=== PATIENT | female | born 1950 | race Caucasian/White ===

== ENCOUNTER 2017-04-28 20:32 | Inpatient (IN) ==
--- NOTE | 2017-04-28 20:50 | Emergency Department Note ---
Disposition Clinical Impression: ICD (implantable cardioverter-defibrillator) discharge, Hypomagnesemia, Hypokalemia, Hypocalcemia Laceration of face Qualifiers: Encounter type: initial encounter Qualified Code(s): S01.81XA - Laceration without foreign body of other part of head, initial encounter Concussion Qualifiers: Encounter type: initial encounter Loss of consciousness presence/duration: with LOC of 30 min or less Qualified Code(s): S06.0X1A - Concussion with loss of consciousness of 30 minutes or less, initial encounter Disposition: Admitted As Inpatient Condition: Serious Time of Disposition: 23:30 General Adult HPI - General Chief complaint: ED Fall Stated complaint: Fall d/t Defib Firing Time Seen by Provider: 04/28/17 20:44 Source: patient, EMS Limitations: no limitations Nursing Notes Reviewed: Yes Vital Signs Reviewed: Yes - History of Present Illness HPI Narrative: 67-year-old female history of hypertension, afib, with history of cardiomyopathy, and implantable ICD she presents after an episode of ICD shock, she stated [place] [facility] [place] [facility] [place] [facility] , and she felt a shock she felt the ground striking her forehead on the ground, causing a laceration to her nose, and she started bleeding she is unsure if she lost consciousness. She had no chest pain prior to the shock but has some chest discomfort after that she describes as 4-10, she also is a 5 out of 10 headache. Denies dysarthria vision changes slurred speech or weakness. Onset (ago): minute(s) Location: chest Pain Severity: moderate Pain Scale: 5 Consistency: constant Improves with: nothing Worsens with: nothing Associated symptoms: Reports: chest pain. Denies: cough, diaphoresis, headaches , loss of appetite, malaise, nausea/vomiting, seizure, shortness of breath - Related Data Home Medications Medication Instructions Recorded Confirmed Aspirin 81 mg PO DAILY 06/05/16 04/28/17 Beclomethasone Diprop 40mcg [QVAR 1 puff IH BID 06/05/16 04/28/17 40 mcg] Cholecalciferol (Vitamin D3) 1,000 unit PO DAILY 06/05/16 04/28/17 [Vitamin D3] Metoprolol [Lopressor] 50 mg PO BID 06/05/16 04/28/17 Multivitamin [Multivitamins] 1 cap PO DAILY 06/05/16 04/28/17 Oxygen 2 l NS AD 06/05/16 04/28/17 Amiodarone [Cordarone] 200 mg PO DAILY 06/27/16 04/28/17 Calcium Carbonate [Calcium] 1,000 mg PO BID 04/28/17 04/28/17 Ferrous Sulfate 325 mg PO DAILY 04/28/17 04/28/17 Magnesium Chloride [Magnesium Dr] 128 mg PO TID 04/28/17 04/28/17 Omeprazole [PriLOSEC] 20 mg PO DAILY 04/28/17 04/28/17 Previous Rx's Medication Instructions Recorded Albuterol Sulfate [Albuterol 1 puff IH Q4HR PRN #2 puff 06/26/16 Inhaler] Furosemide [Lasix] 40 mg PO DAILY tablet 07/06/16 Potassium Chloride 20 meq PO DAILY tab.er.prt 07/06/16 Allergies Allergy/AdvReac Type Severity Reaction Status Date / Time peanut Allergy Hives Verified 07/04/16 05:24 zinc Allergy Hives Verified 07/04/16 05:24 Sulfa (Sulfonamide AdvReac Mild constipatio Verified 07/04/16 05:24 Antibiotics) n All systems ED: reviewed and negative except as stated. Review of Systems: As Per HPI Constitutional: Reports: as per HPI, weakness. Denies: fever Eyes: Denies: eye pain ENT ED: Denies: ear pain Cardiovascular: Denies: chest pain Respiratory: Denies: cough Gastrointestinal: Denies: abdominal pain, nausea Genitourinary: Denies: urgency Musculoskeletal: Denies: back pain Integumentary: Denies: rash Neurological: Reports: as per HPI, headache Past Medical History - Past Medical History Attestation: Yes The following information was validated with the patient. 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 LOGISTICS SUPPORT MANAGER history - Social History Smoking Status: Never smoker Smokeless Tobacco Status: No Alcohol use: Reports: none Drug use: Reports: none Physical Exam Constitutional: NAD, vital signs reviewed and wnl Eyes: PERRLA, sclera anicteric Head: Traumatic with midline laceration through the nasal bridge 3-1/2 cm ENT & Mouth: MM dry Neck: normal inspection, neck is supple Resp: CTA bilaterally, no resp distress CV: RRR, no m/g/r GI: normal inspection, soft, no guarding or rigidity MSK: wrist with no deformity, tender ROM and ecchymosis bilaterally Neuro: A&O3, CNII-XII grossly intact, QUEEN Skin: on limited exam, skin intact with no rashes or lesions poor skin turgor - General Limitations: no limitations General appearance: alert Course Course Narrative: 67-year-old female with ICD that had a fall after her pacer fired, we have interrogation of the Med[employer] pacer, check basic lab work including chest pain workup. Patient's EKG shows sinus arrhythmia, with occasional PVCs. Rate of 95 - Reevaluation(s) Reevaluation #1: Medtronic device shows that she had an episode of ventricular fibrillation her in the 190s, she was shocked with 35 J, basic lab work shows that she is hypomagnesemic, this could be the cause and etiology of her episode of syncope and ventricular fibrillation, replace magnesium IV, calcium and potassium. Admitted to Dr. Chaudhary service in stable condition, no evidence of fracture on CT imaging, laceration repaired. Time: 23:28 Vital Signs Temperature 98.2 F 04/28/17 20:36 Pulse Rate 92 04/28/17 20:36 Respiratory Rate 14 04/28/17 20:36 Blood Pressure 137/85 04/28/17 20:36 O2 Sat by Pulse Oximetry 95 04/28/17 20:36 Temperature 98.2 F 04/28/17 20:36 Pulse Rate 87 04/28/17 22:44 Respiratory Rate 14 04/28/17 23:29 Blood Pressure 121/77 04/28/17 23:29 O2 Sat by Pulse Oximetry 96 04/28/17 22:44 Oxygen Delivery Oxygen Delivery Room Air Procedures - Laceration Laceration 1 Site: face Side (If applicable): left Size (cm): 3.5 Description: linear, stellate Depth: simple, single layer Local Anesthetic: lidocaine 1% Amount of Anesthesia Used (mL): 5 Pre-repair: wound explored, irrigated extensively, deep structures intact Skin layer closed with: nylon Size: 6-0 Number of sutures/patel: 6 Technique: simple, interrupted Medical Decision Making - Medical Records Medical records reviewed: Yes I reviewed the patient's medical records. - Lab Data Lab results reviewed: Yes I reviewed the patient's lab results. Result diagrams: 04/28/17 20:56 04/28/17 20:56 Lab Results 04/28/17 04/28/17 04/28/17 Range/Units 20:56 20:56 20:56 WBC 10.6 (4.3-11.1) K/mcL RBC 4.06 (3.82-4.97) M/mcL Hgb 11.7 (11.5-15.4) g/dL Hct 37.6 (35.3-44.9) % MCV 92.6 (83.0-100.0) fL MCH 28.8 (28.0-33.3) pg MCHC 31.1 L (31.6-35.5) g/dL RDW 15.6 H (11.5-14.5) % Plt Count 269 (140-400) K/mcL MPV 9.9 (9.4-12.4) fL Immature Gran % 0.6 (0-4) % Seg Neutrophils % 67.0 % Lymphocytes % 21.9 % Monocytes % 7.4 % Eosinophils % 2.4 % Basophils % 0.7 % Neutrophils # 7.1 (1.6-8.9) K/mcL Lymphocytes # 2.3 (0.6-4.6) K/mcL Monocytes # 0.8 (0.0-1.3) K/mcL Eosinophils # 0.3 (0.0-0.6) K/mcL Basophils # 0.1 (0.0-0.2) K/mcL Sodium 143 (136-145) mEq/L Potassium 3.4 L (3.5-4.5) mEq/L Chloride 115 H (98-109) mEq/L Carbon Dioxide 18 L (19-29) mEq/L BUN 16 (7-20) mg/dL Creatinine 1.01 (0.57-1.11) mg/dL Est GFR ( Amer) > 60 (> 60) Est GFR (Non-Af Amer) 55 L (> 60) BUN/Creatinine Ratio 16 (6-26) Glucose 158 H (70-99) mg/dL Calculated Osmolality 300 (280-300) Calcium 7.9 L (8.6-10.8) mg/dL Magnesium < 0.7 L (1.6-2.6) mg/dL Troponin I 0.01 (0-0.03) ng/mL - Radiology Data Radiology results reviewed: Yes I reviewed the patient's radiology results. Chest X-Ray 04/28/17 20:50 IMPRESSION: No acute abnormality detected. D/ / James Pineda MD / James Pineda MD Interpreting Provider: James Pineda MD Cervical Spine CT 04/28/17 20:51 IMPRESSION: No acute abnormality of the cervical spine. Diffuse osteopenia. Moderate/severe multilevel degenerative changes with multilevel posterior disc osteophyte complexes. D/ / 04/28/2017 22:20:58 Modesto Layton MD / victorino Interpreting Provider: Modesto Layton MD Face CT 04/28/17 20:51 IMPRESSION: Questionable minimal nasal bone depression. Laceration and soft tissue swelling in the region of the nasal bridge. D/ / James Pineda MD / James Pineda MD Interpreting Provider: James Pineda MD Head CT 04/28/17 20:51 IMPRESSION: No acute intracranial abnormality. Small frontal scalp laceration. D/ / 04/28/2017 22:21:29 Modesto Layton MD / victorino Interpreting Provider: Modesto Layton MD Knee X-Ray 04/28/17 20:51 IMPRESSION: Remote postsurgical changes of right knee arthroplasty. No acute process. D/ / Mer Mcknight MD / Mer Mcknight MD Interpreting Provider: Mer Mcknight MD Shoulder X-Ray 04/28/17 20:51 IMPRESSION: Remote posttraumatic changes involving the proximal left humerus. No definite acute osseous abnormality. D/ / Mer Mcknight MD / Mer Mcknight MD Interpreting Provider: Mer Mcknight MD Wrist X-Ray 04/28/17 20:51 IMPRESSION: Bones are demineralized. No definite acute fracture identified. Severe degenerative changes, greatest the 1st carpometacarpal joint. D/ / James Pineda MD / James Pineda MD Interpreting Provider: James Pineda MD - EKG Data EKG #1 EKG attestation: Yes I reviewed and interpreted this EKG. EKG shows normal: sinus rhythm Rhythm: PVC's (Multiple PVCs, rate of 90, no evidence of ST segment elevations or depressions,) Ectopy: PVC Interpretation: nonspecific ST-T wave changes - Core Measures AMI Core Measures Followed: Yes Attestation Statement - Attestation Attestation: I, Allan Miles, examined this patient and my medical decision-making was reviewed with the HORN PLAYER/PA/Advanced Practice Nurse/Resident Physician. I agree with the documented findings, disposition and treatment plan as described except to the extent set forth below. 67-year-old female presents to emergency department after her pacemaker fired causing her to fall to the ground. Patient states that she was in her usual state of health this morning, she was on her way to a sleep study with her at the [place] when they became loss. As they were walking she became fatigued and was then shocked by her pacemaker. Patient denies feeling palpitations prior to being shocked. The shock caused her to fall to the ground striking her face. Patient sustained laceration to her superior nasal bridge and some glabella. Patient denies loss of consciousness. She is awake and alert and answering questions appropriately emergency department. CT the head does not reveal acute intracranial hemorrhage or fracture. Interrogation of the pacemaker revealed possible ventricular fibrillation. Initial troponin negative. Patient will be admitted to the hospital for further care and evaluation.
[2017-04-28] MEDS ORDERED: Lidocaine 1% 20 ML MDV INFILT STA (20:54)
[2017-04-28 21:04] LABS: Basophils # 0.1 K/mcL (0.0-0.2); Basophils % 0.7 %; Eosinophils # 0.3 K/mcL (0.0-0.6); Eosinophils % 2.4 %; Hematocrit 37.6 % (35.3-44.9); Hemoglobin 11.7 g/dL (11.5-15.4); Immature Granulocytes % 0.6 % (0-4); Lymphocytes # 2.3 K/mcL (0.6-4.6); Lymphocytes % 21.9 %; Mean Corpuscular HGB Conc 31.1 g/dL (31.6-35.5); Mean Corpuscular Hemoglobin 28.8 pg (28.0-33.3); Mean Corpuscular Volume 92.6 fL (83.0-100.0); Mean Platelet Volume 9.9 fL (9.4-12.4); Monocytes # 0.8 K/mcL (0.0-1.3); Monocytes % 7.4 %; Neutrophils # 7.1 K/mcL (1.6-8.9); Platelet Count 269 K/mcL (140-400); Red Blood Count 4.06 M/mcL (3.82-4.97); Red Cell Distribution Width 15.6 % (11.5-14.5)
[2017-04-28 21:17] LABS: BUN/Creatinine Ratio 16 (6-26); Blood Urea Nitrogen 16 mg/dL (7-20); Calcium 7.9 mg/dL (8.6-10.8); Carbon Dioxide 18 mEq/L (19-29); Chloride 115 mEq/L (98-109); Glucose 158 mg/dL (70-99); Osmolality,Calculated 300 (280-300); Potassium 3.4 mEq/L (3.5-4.5); Sodium 143 mEq/L (136-145); eGFR For African Americans > 60 (> 60); eGFR For Non-African Americans 55 (> 60)
[2017-04-28 21:18] LABS: Magnesium < 0.7 mg/dL (1.6-2.6)
[2017-04-28] MEDS ORDERED: Calcium Gluconate 1,000 MG in D5% in Water 100 ML IVPB ONE (21:48)
[2017-04-29] MEDS ORDERED: Naloxone 0.4 MG/ML INJ IVP PRN (01:01)
[2017-04-29] MEDS ORDERED: *HR* Morphine 2 MG/ML SYRINGE IVP PRN (01:01)
[2017-04-29] MEDS ORDERED: 0.9 % Sodium Chloride w KCl 20 MEQ/1,000 ML MLS IVC SCH (01:15)
[2017-04-29] MEDS: Acetaminophen 325 MG TABLET PO PRN ×4 (02:08→21:09)
--- NOTE | 2017-04-29 02:21 | Internal Med History&Physical ---
Date of Encounter: 04/29/17 Time of Encounter: 01:00 Assessment and Plan (1) AICD discharge Current visit: Yes Status: Acute 1. Will cycle troponins and order ECHO. 2. Consult cardiology for guidance and further work-up as necessary. 3. Continue home meds as appropriate. 4. Correct electrolytes and monitor closely. (2) Hypomagnesemia Current visit: Yes Status: Acute 1. Patient receiving IV Magnesium sulfate infusion. 2. Monitor magnesium levels closely and correct as needed. 3. Stop diuretics for now as she has no CHF and diuretics could lead to electrolyte imbalance. 4. Patient may need further GI work-up as I'm concerned she has GI losses of electrolytes. (3) Hypokalemia Current visit: Yes Status: Acute 1. Oral potassium replacement. 2. Monitor potassium and magnesium levels. 3. Consider further GI work-up as noted above. (4) Chronic diarrhea Current visit: No Status: Acute 1. This is chronic and not new. 2. Outpatient GI follow up. 3. Given her severe electrolyte imbalance and unintentional weight loss, she may need further work-up per her GI physician. (5) DVT prophylaxis Current visit: No Status: Acute 1. Heparin SQ. Internal Medicine - H&P: HPI Chief complaint: AICD DISCHARGE Admitted From: Emergency Dept Plans for Post Hospital Care: Home History of present illness: Ms. Hebert is a 67 year old female who presents the ER tonight after her AICD shocked her twice. She was at the [facility] with her earlier this evening for some testing that her was having performed. They were walking in between buildings, and she suddenly became a little lightheaded and then she was shocked twice by her defibrillator. She fell to the ground at that point and within seconds felt better other than some pain that she experienced after her defibrillation. She denied any syncope. Because of the AICD discharge, she was brought to the ER here where she was evaluated and admitted to the hospitalist service. She did sustain injury to her nose in the form of laceration and contusion. She had laceration repair in the ER. She otherwise feels fine now. Of note, patient had profound hypomagnesemia and hypokalemia. She received magnesium sulfate infusion in the ER and oral potassium replacement. She denies any chest pain or shortness of breath. She states she has had chronic diarrhea for years and has lost weight because of that. She has had extensive GI workup in the recent past, including upper and lower endoscopy. Workup thus far has been negative. She follows with her lift electrician in [place]. I suspect her low electrolyte imbalance may be at least be partially due to her GI losses. She denies any recent antibiotic use or any concern for Clostridium difficile colitis. Past Med Surg Social Fam HX - Past Medical History Attestation: Yes The following information was validated with the patient. Source: patient, old records reviewed Medical history: COPD, diabetes, hyperlipidemia, hypertension, myocardial infarction, other (h/o ventricular tachycardia) Psychiatric history: no psych history - Past Surgical History Surgical History: hysterectomy, pacemaker/AICD - Social History Smoking Status: Never smoker Smokeless Tobacco Status: No Alcohol use: none Drug use: none Current living situation: Home, With Family Activity Level: Independent ambulation Recent Out of Country Travel Within the Last 8 Weeks: No - Family History Mother Living Status: Hx Family Endocrine Disorder: Yes (dM) Internal Medicine - H&P: Meds Aspirin 81 mg PO DAILY 06/05/16 [History] Beclomethasone Diprop 40mcg [QVAR 40 mcg] 1 puff IH BID 06/05/16 [History] Cholecalciferol (Vitamin D3) [Vitamin D3] 1,000 unit PO DAILY 06/05/16 [History] Metoprolol [Lopressor] 50 mg PO BID 06/05/16 [History] Multivitamin [Multivitamins] 1 cap PO DAILY 06/05/16 [History] Oxygen 2 l NS AD 06/05/16 [History] Albuterol Sulfate [Albuterol Inhaler] 1 puff IH Q4HR PRN #2 puff 06/26/16 [Rx] Amiodarone [Cordarone] 200 mg PO DAILY 06/27/16 [History] Furosemide [Lasix] 40 mg PO DAILY tablet 07/06/16 [Rx] Potassium Chloride 20 meq PO DAILY tab.er.prt 07/06/16 [Rx] Calcium Carbonate [Calcium] 1,000 mg PO BID 04/28/17 [History] Ferrous Sulfate 325 mg PO DAILY 04/28/17 [History] Magnesium Chloride [Magnesium Dr] 128 mg PO TID 04/28/17 [History] Omeprazole [PriLOSEC] 20 mg PO DAILY 04/28/17 [History] 3 Allergy/AdvReac Type Severity Reaction Status Date / Time peanut Allergy Hives Verified 07/04/16 05:24 zinc Allergy Hives Verified 07/04/16 05:24 Sulfa (Sulfonamide AdvReac Mild constipatio Verified 07/04/16 05:24 Antibiotics) n - Constitutional Constitutional: weight loss, no chills, no fever(s), no night sweats - EENT Eyes: no blurry vision, no change in vision Ears: no ear pain, no tinnitus Nose, mouth and throat: no nasal congestion, no nasal discharge, no sinus pressure, no sore throat - Cardiovascular Cardiovascular ROS IM: lightheadedness, palpitations, no chest pain, no diaphoresis, no dyspnea, no dyspnea on exertion, no edema, no syncope - Respiratory Respiratory: no cough, no dyspnea, no hemoptysis, no chest congestion, no excessive phlegm production - Gastrointestinal Gastrointestinal: diarrhea (chronic), no abdominal pain, no hematemesis, no hematochezia, no melena, no nausea, no vomiting - Genitourinary Genitourinary: no dysuria, no flank pain, no hematuria - Musculoskeletal Musculoskeletal ROS IM: arthralgias, no back pain - Integumentary Integumentary IM: no rash, no jaundice - Neurological Neurological ROS: no focal weakness, no frequent falls, no headache(s), no weakness - Psychiatric Psychiatric: no anxiety, no depression - Endocrine Endocrine IM: no polydipsia, no polyuria - Hematologic/Lymphatic Hematologic/Lymphatic: no lymphadenopathy - Allergic/Immunologic Allergic/Immunologic: no wheezing, no GI upset with certain foods - Constitutional Vitals: Temp Pulse Resp BP Pulse Ox 97.9 F 82 18 124/73 95 04/29/17 00:29 04/29/17 00:30 04/29/17 00:29 04/29/17 00:29 04/29/17 00:29 General appearance: Present: A&O X 3, no acute distress - Head Head exam: Absent: atraumatic Additional comments: laceration/contusion to nasal bridge - Eye Eye exam: Present: EOMI, normal appearance, PERRL. Absent: scleral icterus Pupils: Present: normal accommodation - ENT ENT exam: Present: mucous membranes dry, normal oropharynx Additional comments: nasal bridge contusion and laceration - Neck Neck exam general surgery: Present: full ROM, supple. Absent: tenderness - Expanded Neck Exam Neck exam: Absent: carotid bruit - Respiratory Respiratory exam: Present: CTAB. Absent: chest wall tenderness, rales, rhonchi , wheezes - Cardiovascular Cardiovascular exam: Present: RRR, +S1, +S2. Absent: diastolic murmur, systolic murmur Additional comments: palpable AICD left upper chest - GI/Abdominal GI/Abdominal exam: Present: normal bowel sounds, soft. Absent: hepatomegaly, splenomegaly, tenderness - Extremities Exam Extremities exam: Present: full ROM, normal capillary refill, warm, radial pulses palpable and symmetrical. Absent: calf tenderness, joint swelling, pedal edema - Back Exam Back exam: Absent: CVA tenderness (L), CVA tenderness (R) - Neurological Exam Neurological exam: Present: alert, CN II-XII intact, oriented X3, no focal deficits - Psychiatric Psychiatric exam: Present: normal affect, normal mood - Skin Skin exam: Present: dry, warm. Absent: rash Internal Med - H&P Results - Labs CBC & Chem 7: 04/28/17 20:56 04/28/17 20:56 - EKG Data -: EKG Interpreted by Myself - EKG Data EKG comments: 04/29/17 03:09 sinus rhythm; PVC's; poor quality tracing due to baseline artifact - Diagnostic Studies Chest x-ray Status: image reviewed by me (negative)
[2017-04-29 04:27] LABS: Basophils # 0.1 K/mcL (0.0-0.2); Basophils % 0.5 %; Eosinophils # 0.2 K/mcL (0.0-0.6); Eosinophils % 1.9 %; Hematocrit 34.7 % (35.3-44.9); Hemoglobin 10.8 g/dL (11.5-15.4); Immature Granulocytes % 0.4 % (0-4); Lymphocytes # 2.1 K/mcL (0.6-4.6); Mean Corpuscular HGB Conc 31.1 g/dL (31.6-35.5); Mean Corpuscular Hemoglobin 28.8 pg (28.0-33.3); Mean Corpuscular Volume 92.5 fL (83.0-100.0); Mean Platelet Volume 10.1 fL (9.4-12.4); Monocytes # 0.9 K/mcL (0.0-1.3); Monocytes % 7.4 %; Platelet Count 243 K/mcL (140-400); Red Blood Count 3.75 M/mcL (3.82-4.97); Red Cell Distribution Width 15.6 % (11.5-14.5); Segmented Neutrophils % 72.8 %
[2017-04-29 04:36] LABS: INR 1.3; Prothrombin Time 13.6 Seconds (9.4-12.1)
[2017-04-29 04:39] LABS: Activated Partial Thrombo Time 32.5 Seconds (26.0-36.0)
[2017-04-29 04:49] LABS: Alanine Aminotransferase 15 Units/L (0-55); Albumin 2.8 g/dL (3.5-5.0); Alkaline Phosphatase 113 Units/L (38-126); Aspartate Amino Transferase 15 Units/L (5-34); BUN/Creatinine Ratio 18 (6-26); Bilirubin,Total 0.3 mg/dL (0.2-1.2); Blood Urea Nitrogen 17 mg/dL (7-20); Calcium 8.2 mg/dL (8.6-10.8); Carbon Dioxide 19 mEq/L (19-29); Chloride 117 mEq/L (98-109); Chol/HDL Ratio 4.1 (0-4.9); Cholesterol 81 mg/dL (< 200); Globulin 2.9 g/dL (2.4-3.5); Glucose 112 mg/dL (70-99); HDL Cholesterol 20 mg/dL (40-59); LDL Cholesterol,Calculated 45 mg/dL (0-99); Magnesium 1.2 mg/dL (1.6-2.6); Osmolality,Calculated 300 (280-300); Potassium 3.9 mEq/L (3.5-4.5); Sodium 144 mEq/L (136-145); Total Protein 5.7 g/dL (6.0-8.3); Triglycerides 78 mg/dL (< 150); eGFR For African Americans > 60 (> 60); eGFR For Non-African Americans 60 (> 60)
[2017-04-29] MEDS: *HR* Heparin 5,000 UNIT/ML VIAL SQ SCH ×2 (05:54→18:01)
[2017-04-29] MEDS ORDERED: Magnesium Sulfate 2 GM in D5% in Water 100 ML IVPB ONE (07:52)
[2017-04-29] MEDS: Aspirin 81 MG TAB.CHEW PO SCH (08:07)
[2017-04-29] MEDS: *HR* Amiodarone 200 MG TABLET PO SCH (08:08)
[2017-04-29] MEDS: Cholecalciferol (D-3) 1,000 UNIT TABLET PO SCH (08:08)
[2017-04-29] MEDS: Multivit/Ca/Min/Fe/FA 1 TAB TABLET PO SCH (08:08)
[2017-04-29] MEDS ORDERED: MAGNESIUM 128 MG PO SCH (09:00)
[2017-04-29] MEDS: Beclomethasone 40mcg MDI IH SCH ×2 (10:31→22:03)
[2017-04-29] MEDS: *HR* OxyCODONE/APAP 5/325 TABLET PO PRN ×2 (11:09→18:00)
--- NOTE | 2017-04-29 12:15 | Cardiology Consult Note ---
Date of Encounter: 04/29/17 Time of Encounter: 10:30 Assessment and Plan (1) AICD discharge Current Visit: Yes Status: Acute Per Cardiology: Has hx of ICD for VF Arrest following R on T. [employer] ICD interrogation report noted to show VT in the 190s yesterday evening at 1955 with one shock of 35 J with conversion to sinus rhythm. Denies CP. Trops negative x 3. Last LHC : Coronary arteries angiographically normal. Last echo 06/2016 showed EF 60 -65%. Echo pending per primary service. Suspect in relation to low potassium and low magnesium (3.4 and <0.7 on arrival). Now 3.9 and 1.2. On Lopressor 50mg PO BID and amiodarone 200mg PO daily. EP Consulted. (2) Hypokalemia Current Visit: Yes Status: Acute Per Cardiology: Replaced per primary and improved. Recommend keep K+ greater/= 4.0. (3) Hypomagnesemia Current Visit: Yes Status: Chronic Per Cardiology: <0.7 on arrival, now 1.2. Will add Mag Oxide 400mg PO BID. Will give Mg Carl 4gms, follow mag. Keep Mag greater/=2.0. Appears chronic with her persistent diarrhea and reported significant weight loss. Consider nephrology consult tot evaluate further causes of low mag. (4) Laceration of face Current Visit: Yes Status: Acute Per Cardiology: Sutures D&I. Head and Face CT negative. Qualifiers: Encounter type: initial encounter Qualified Code(s): S01.81XA - Laceration without foreign body of other part of head, initial encounter Discussion w patient/family: The assessment and plan as outlined above was discussed with the patient and/or family members who expressed understanding and agreement. All questions were answered. Thank you for involving us in the care of your patient. Please call with any questions. History of Present Illness Consult date: 04/29/17 Requesting physician: Charbel Silver Consult reason: ICD Shock Chief complaint: ICD shock and fall History of present illness: Ms. Hebert is a 67 year old female with a relevant past medical history of ventricular tachycardia with ICD, atrial fibrillation on amiodarone, hypertension, diabetes mellitus, LUIS. Cardiology consult for ICD shock with subsequent fall and head laceration. Patient reports she continues to experience chronic diarrhea and weight loss in excess of 200 pounds over the past year or so. She reports medical evaluations yielding diagnosis of irritable bowel syndrome. She [facility] became extremely short of breath and felt slightly dizzy but she didn't pass out. She reports prior to sitting in a chair heard from later shocked and she fell to the ground. Prior to this incident she denies any chest pain, short of breath, palpitations, ICD shocks. She does report overall increasing fatigue from baseline. Reports compliance with medications. Reports has been battling low magnesium levels with her persistent diarrhea. Past Med Surg Social Fam HX - Past Medical History Attestation: Yes The following information was validated with the patient. Source: patient, old records reviewed Medical history: atrial fibrillation, COPD, diabetes, hyperlipidemia, hypertension, myocardial infarction, other (h/o ventricular tachycardia) Psychiatric history: no psych history - Past Surgical History Surgical History: hysterectomy, pacemaker/AICD - Social History Smoking Status: Never smoker Smokeless Tobacco Status: No Alcohol use: none Drug use: none - Family History Mother Living Status: Hx Family Endocrine Disorder: Yes (dM) Medications and Allergies Aspirin 81 mg PO DAILY 06/05/16 [History] Beclomethasone Diprop 40mcg [QVAR 40 mcg] 1 puff IH BID 06/05/16 [History] Cholecalciferol (Vitamin D3) [Vitamin D3] 1,000 unit PO DAILY 06/05/16 [History] Metoprolol [Lopressor] 50 mg PO BID 06/05/16 [History] Multivitamin [Multivitamins] 1 cap PO DAILY 06/05/16 [History] Oxygen 2 l NS AD 06/05/16 [History] Albuterol Sulfate [Albuterol Inhaler] 1 puff IH Q4HR PRN #2 puff 06/26/16 [Rx] Amiodarone [Cordarone] 200 mg PO DAILY 06/27/16 [History] Furosemide [Lasix] 40 mg PO DAILY tablet 07/06/16 [Rx] Potassium Chloride 20 meq PO DAILY tab.er.prt 07/06/16 [Rx] Calcium Carbonate [Calcium] 1,000 mg PO BID 04/28/17 [History] Ferrous Sulfate 325 mg PO DAILY 04/28/17 [History] Magnesium Chloride [Magnesium Dr] 128 mg PO TID 04/28/17 [History] Omeprazole [PriLOSEC] 20 mg PO DAILY 04/28/17 [History] 3 Allergy/AdvReac Type Severity Reaction Status Date / Time peanut Allergy Hives Verified 07/04/16 05:24 zinc Allergy Hives Verified 07/04/16 05:24 Sulfa (Sulfonamide AdvReac Mild constipatio Verified 07/04/16 05:24 Antibiotics) n All Systems Review: A 10-system review of systems was performed and is negative for pertinent findings except as documented above in the HPI. - Constitutional Constitutional: fatigue - Cardiovascular Cardiovascular: as per HPI, dyspnea on exertion, lightheadedness, other (fall with ICD shock) Physical Examination Vital Signs, Last 4 Hours Temp Pulse Resp BP Pulse Ox 04/29/17 11:12 70 04/29/17 10:44 98.1 F 68 96/58 96 04/29/17 10:31 17 97 General: Conversant, No Apparent Distress HEENT: Atraumatic, Normocephaly, Mucus Membranes Moist Neck: No JVD, Normal carotid pulses Cardiac: Reg Rate and Rhythm, Normal S1 and S2, No Murmur Lungs: Normal Breath Sounds, No Wheeze, Rales, Rhonchi Neuro: Alert and responsive, No focal deficits noted Abdomen: Soft, Non-Tender Skin: No rashes noted on visualized skin, Other (mid forhead laceration approx 1 inch long with sutures D&I, no bleeding, no ecchymosis) Musculoskeletal: No Chest Wall Tenderness Extremities: No Clubbing, No Cyanosis, No Edema, Normal Pulses Results 04/29/17 04:06 04/29/17 04:06 Lab Results Laboratory Tests 04/28/17 04/28/17 04/29/17 20:56 20:56 04:06 INR 1.3 Potassium 3.4 L Magnesium < 0.7 L Troponin I 0.01 Albumin 04/29/17 04/29/17 04/29/17 04:06 04:06 09:24 INR Potassium 3.9 Magnesium 1.2 L Troponin I 0.03 0.02 Albumin 2.8 L ITS Impressions Chest X-Ray 04/28/17 20:50 IMPRESSION: No acute abnormality detected. D/ / James Pineda MD / James Pineda MD Interpreting Provider: James Pineda MD Cervical Spine CT 04/28/17 20:51 IMPRESSION: No acute abnormality of the cervical spine. Diffuse osteopenia. Moderate/severe multilevel degenerative changes with multilevel posterior disc osteophyte complexes. D/ / 04/28/2017 22:20:58 Modesto Layton MD / victorino Interpreting Provider: Modesto Layton MD Face CT 04/28/17 20:51 IMPRESSION: Questionable minimal nasal bone depression. Laceration and soft tissue swelling in the region of the nasal bridge. D/ / James Pineda MD / James Pineda MD Interpreting Provider: James Pineda MD Head CT 04/28/17 20:51 IMPRESSION: No acute intracranial abnormality. Small frontal scalp laceration. D/ / 04/28/2017 22:21:29 Modesto Layton MD / victorino Interpreting Provider: Modesto Layton MD Knee X-Ray 04/28/17 20:51 IMPRESSION: Remote postsurgical changes of right knee arthroplasty. No acute process. D/ / Mer Mcknight MD / Mer Mcknight MD Interpreting Provider: Mer Mcknight MD Shoulder X-Ray 04/28/17 20:51 IMPRESSION: Remote posttraumatic changes involving the proximal left humerus. No definite acute osseous abnormality. D/ / Mer Mcknight MD / Mer Mcknight MD Interpreting Provider: Mer Mcknight MD Wrist X-Ray 10/04/17 20:51 IMPRESSION: Bones are demineralized. No definite acute fracture identified. Severe degenerative changes, greatest the 1st carpometacarpal joint. D/ / James Pineda MD / James Pineda MD Interpreting Provider: James Pineda MD Active Medications Acetaminophen (Tylenol) 650 mg PO Q6HR PRN PRN Reason: Mild Pain (1-3) Stop: 10/29/17 01:02 Last Admin: 04/29/17 08:07 Dose: 650 mg Albuterol Sulfate (Albuterol Inhaler) 1 puff IH Q4HR PRN PRN Reason: Difficulty breathing Stop: 10/29/17 01:07 Amiodarone HCl (Cordarone) 200 mg PO DAILY [facility] Stop: 10/29/17 09:01 Last Admin: 04/29/17 08:08 Dose: 200 mg Aspirin (Aspirin) 81 mg PO DAILY [facility] Stop: 10/29/17 09:01 Last Admin: 04/29/17 08:07 Dose: 81 mg Beclomethasone Dipropionate (Qvar 40 Mcg) 1 puff IH BIDR TALA PRN Reason: Protocol Stop: 10/29/17 10:01 Last Admin: 04/29/17 10:31 Dose: 1 puff Calcium Carbonate (Tums) 1,000 mg PO BID [facility] Stop: 10/29/17 09:01 Last Admin: 04/29/17 08:07 Dose: 1,000 mg Docusate Sodium (Colace) 100 mg PO BID PRN PRN Reason: Constipation Stop: 10/29/17 01:02 Ferrous Sulfate (Ferrous Sulfate) 325 mg PO DAILY [facility] Stop: 10/29/17 09:01 Last Admin: 04/29/17 08:08 Dose: 325 mg Heparin Sodium (Porcine) (Heparin) 5,000 unit SQ Q12HCO [facility] Stop: 10/29/17 06:01 Last Admin: 04/29/17 05:54 Dose: 5,000 unit Potassium Chloride/Sodium Chloride (Kcl 20 Meq In 0.9% Sodium Chloride) 20 meq in 1,000 mls @ 75 mls/hr IVC .[id number] [facility] Stop: 10/29/17 01:16 Last Admin: 04/29/17 02:08 Dose: 75 mls/hr Metoprolol Tartrate (Lopressor) 50 mg PO BID TALA Stop: 10/29/17 09:01 Last Admin: 04/29/17 08:07 Dose: 50 mg Morphine Sulfate (Morphine Sulfate) 2 mg IVP Q4HR PRN PRN Reason: Chest Pain Stop: 10/29/17 01:02 Multivitamins/Calcium (Thera M Plus) 1 tab PO DAILY TALA Stop: 10/29/17 09:01 Last Admin: 04/29/17 08:08 Dose: 1 tab Naloxone HCl (Narcan) 0.4 mg IVP Q2MIN PRN PRN Reason: Opioid Reversal Stop: 10/29/17 01:02 Omeprazole (Prilosec) 20 mg PO 0630 TALA PRN Reason: Protocol Stop: 10/29/17 06:31 Last Admin: 04/29/17 05:54 Dose: 20 mg Oxycodone/Acetaminophen (Percocet 5/325) 1 each PO Q6HR PRN PRN Reason: Pain Stop: 10/29/17 11:05 Last Admin: 04/29/17 11:09 Dose: 1 each Pharmacy Profile Note (Patient Taking Own Medication) 1 each PO TID TALA Stop: 10/29/17 09:01 Last Admin: 04/29/17 08:11 Dose: Not Given Potassium Chloride (Potassium Chloride) 20 meq PO DAILY TALA Stop: 10/29/17 09:01 Last Admin: 04/29/17 08:08 Dose: 20 meq Vitamin D (Vitamin D) 1,000 unit PO DAILY TALA Stop: 10/29/17 09:01 Last Admin: 04/29/17 08:08 Dose: 1,000 unit - Imaging and Cardiology Echo: pending (comparable to baseline) Cardiac cath: report reviewed - EKG Interpretation EKG results cardiology: personally reviewed, other (SR with avg HR 74, no VT noted) Consult Discharge Plan - Plan Referrals: Sloane Murphy DO [Primary Care Provider] - 05/07/17 9:30 am Allan Kearns MD [Partnered Physician] - (CARDIOLOGY WILL CALL PATIENT AT HOME WITH A FOLLOW UP APPOINTMENT)
[2017-04-29] MEDS: Magnesium Oxide 400 MG TABLET PO SCH ×2 (13:30→20:18)
[2017-04-29] MEDS: Magnesium Sulfate 2 GM in D5% in Water 100 ML IVPB SCH ×2 (13:30→15:45)
[2017-04-29] MEDS ORDERED: Magnesium Sulfate 2 GM in D5% in Water 100 ML IVPB PRN (13:55)
[2017-04-29 15:07] LABS: BUN/Creatinine Ratio 20 (6-26); Blood Urea Nitrogen 17 mg/dL (7-20); Calcium 8.5 mg/dL (8.6-10.8); Carbon Dioxide 17 mEq/L (19-29); Chloride 118 mEq/L (98-109); Glucose 154 mg/dL (70-99); Osmolality,Calculated 299 (280-300); Potassium 4.5 mEq/L (3.5-4.5); Sodium 142 mEq/L (136-145); eGFR For African Americans > 60 (> 60); eGFR For Non-African Americans > 60 (> 60)
--- NOTE | 2017-04-29 15:10 | Electrophysiology Consult Note ---
<Diego Richards Karolina - Last Filed: 04/29/17 14:59> Date of Encounter: 04/29/17 Time of Encounter: 14:45 Consult Discharge Plan - Plan Referrals: Sloane Murphy DO [Primary Care Provider] - 05/07/17 9:30 am Allan Kearns MD [Partnered Physician] - (CARDIOLOGY WILL CALL PATIENT AT HOME WITH A FOLLOW UP APPOINTMENT) Assessment and Plan (1) Ventricular tachycardia Current Visit: Yes Status: Acute Per EP: S/p ICD shock with 35J for VT. HR 190. Likely secondary to electrolyte disturbance. S/p ICD placement V-fib arrest 02/2017. She was documented to have v-fib arrest and seen to have R on T at that time. Currently on amiodarone 200 mg P.O. daily. On lopressor 50 mg BID. B/p 110/60-96 /58. Unable to increase lopressor. Found to have severe hypomagnesiemia (<0.07 and now 1.2) and hypokalemia (3.4 and now 4.5). Continue electrolyte replacement. Keep Mg 2.0 and K around 4.0. (2) Atrial fibrillation Current Visit: No Status: Chronic Documented to have history of atrial fibrillation on atypical atrial flutter. Currently NSR. She was previously on coumadin and developed hemoptysis. Developed aveolar hemorrhage in 2016. On asa only. Qualifiers: Atrial fibrillation type: paroxysmal Qualified Code(s): I48.0 - Paroxysmal atrial fibrillation Discussion w patient/family: The assessment and plan as outlined above was discussed with the patient and/or family members who expressed understanding and agreement. All questions were answered. Thank you for involving us in the care of your patient. Please call with any questions. History of Present Illness Consult date: 04/29/17 Requesting physician: Nav Denney Consult reason: VT Chief complaint: ICD shock History of present illness: Ms. Hebert is a 67 year old female with a history of ventricular tachycardia s/p ICD placement, atrial fibrillation , HTN, DM, and LUIS who presented after ICD shock. She was at the [facility] for blood work when she felt her ICD shock her and she fell. Reports having brief loss of consciousness. She hit her head and developed a laceration on the bridge of her nose. She also injured her right wrist and left shoulder and knee. She admits to SOB and dizziness while walking around the [place] prior to the event. She reports loss of conciousness. Denies previous ICD shock.. ICD interrogation showed one ICD shock with 35j for HR in VT range at 190. ICD was placed one year ago when she was found to have VT. She was found to have significant electrolyte disturbances at that time. She reports having chronic diarrhea and excessive weight loss of 200 lbs over the past year. She was diagnosed with IBS. She was following at the [place] for persistently low magnesium levels. Past Med Surg Social Fam HX - Past Medical History Medical history: atrial fibrillation, COPD, diabetes, hyperlipidemia, hypertension, myocardial infarction, other (h/o ventricular tachycardia) Psychiatric history: no psych history - Past Surgical History Surgical History: hysterectomy, pacemaker/AICD - Social History Smoking Status: Never smoker Smokeless Tobacco Status: No Alcohol use: none Drug use: none - Family History Mother Living Status: Hx Family Endocrine Disorder: Yes (dM) Medications and Allergies Aspirin 81 mg PO DAILY 06/05/16 [History] Beclomethasone Diprop 40mcg [QVAR 40 mcg] 1 puff IH BID 06/05/16 [History] Cholecalciferol (Vitamin D3) [Vitamin D3] 1,000 unit PO DAILY 06/05/16 [History] Metoprolol [Lopressor] 50 mg PO BID 06/05/16 [History] Multivitamin [Multivitamins] 1 cap PO DAILY 06/05/16 [History] Oxygen 2 l NS AD 06/05/16 [History] Albuterol Sulfate [Albuterol Inhaler] 1 puff IH Q4HR PRN #2 puff 06/26/16 [Rx] Amiodarone [Cordarone] 200 mg PO DAILY 06/27/16 [History] Furosemide [Lasix] 40 mg PO DAILY tablet 07/06/16 [Rx] Potassium Chloride 20 meq PO DAILY tab.er.prt 07/06/16 [Rx] Calcium Carbonate [Calcium] 1,000 mg PO BID 04/28/17 [History] Ferrous Sulfate 325 mg PO DAILY 04/28/17 [History] Magnesium Chloride [Magnesium Dr] 128 mg PO TID 04/28/17 [History] Omeprazole [PriLOSEC] 20 mg PO DAILY 04/28/17 [History] 3 Allergy/AdvReac Type Severity Reaction Status Date / Time peanut Allergy Hives Verified 07/04/16 05:24 zinc Allergy Hives Verified 07/04/16 05:24 Sulfa (Sulfonamide AdvReac Mild constipatio Verified 07/04/16 05:24 Antibiotics) n All Systems Review: A 10-system review of systems was performed and is negative for pertinent findings except as documented above in the HPI. Physical Examination Vital Signs, Last 4 Hours Pulse 04/29/17 11:12 70 General: Conversant, No Apparent Distress HEENT: Atraumatic, Normocephaly, Mucus Membranes Moist, Other (Sutures intact on nose bridge. ) Neck: No JVD, Normal carotid pulses Cardiac: Reg Rate and Rhythm, Normal S1 and S2, No Murmur Lungs: Normal Breath Sounds, No Wheeze, Rales, Rhonchi Neuro: Alert and responsive, No focal deficits noted Abdomen: Soft, Non-Tender Skin: No rashes noted on visualized skin Musculoskeletal: No Chest Wall Tenderness Extremities: No Clubbing, No Cyanosis, No Edema, Normal Pulses, Other (Right arm is gaurded) Results 04/29/17 04:06 04/29/17 04:06 Lab Results 04/29/17 04/29/17 04/29/17 04:06 04:06 04:06 WBC 12.4 H Hgb 10.8 L Hct 34.7 L Plt Count 243 INR 1.3 APTT 32.5 Sodium 144 Potassium 3.9 Chloride 117 H Carbon Dioxide 19 BUN 17 Creatinine 0.94 Glucose 112 H Calcium 8.2 L Magnesium 1.2 L Total Bilirubin 0.3 AST 15 ALT 15 Alkaline Phosphatase 113 Troponin I 04/29/17 04/29/17 04:06 09:24 WBC Hgb Hct Plt Count INR APTT Sodium Potassium Chloride Carbon Dioxide BUN Creatinine Glucose Calcium Magnesium Total Bilirubin AST ALT Alkaline Phosphatase Troponin I 0.03 0.02 - Imaging and Cardiology Echo: report reviewed Cardiac cath: report reviewed <Allan Kearns - Last Filed: 04/29/17 16:27> Date of Encounter: 04/29/17 Assessment and Plan Discussion w patient/family: The assessment and plan as outlined above was discussed with the patient and/or family members who expressed understanding and agreement. All questions were answered. Thank you for involving us in the care of your patient. Please call with any questions. History of Present Illness History of present illness: Ms. Hebert is a 67 year old female All Systems Review: A 10-system review of systems was performed and is negative for pertinent findings except as documented above in the HPI. Physical Examination Vital Signs, Last 4 Hours Temp Pulse Resp BP Pulse Ox 04/29/17 16:05 97.7 F 68 16 121/72 95 04/29/17 15:00 65 Results 04/29/17 14:28 04/29/17 14:28 Lab Results 04/29/17 04/29/17 04/29/17 04:06 04:06 04:06 WBC 12.4 H Hgb 10.8 L Hct 34.7 L Plt Count 243 INR 1.3 APTT 32.5 Sodium 144 Potassium 3.9 Chloride 117 H Carbon Dioxide 19 BUN 17 Creatinine 0.94 Glucose 112 H Calcium 8.2 L Magnesium 1.2 L Total Bilirubin 0.3 AST 15 ALT 15 Alkaline Phosphatase 113 Troponin I 04/29/17 04/29/17 04/29/17 04:06 09:24 14:28 WBC 11.1 Hgb 11.0 L Hct 35.9 Plt Count 250 INR APTT Sodium Potassium Chloride Carbon Dioxide BUN Creatinine Glucose Calcium Magnesium Total Bilirubin AST ALT Alkaline Phosphatase Troponin I 0.03 0.02 04/29/17 14:28 WBC Hgb Hct Plt Count INR APTT Sodium 142 Potassium 4.5 Chloride 118 H Carbon Dioxide 17 L BUN 17 Creatinine 0.84 Glucose 154 H Calcium 8.5 L Magnesium Total Bilirubin AST ALT Alkaline Phosphatase Troponin I - Attending Attestation I have personally performed a face to face evaluation on this patient. I have reviewed and agree with the care plan. History and Exam by me shows: Presented with ICD shock. Reviewed device interrogation. Shock/ ATP for AF with RVR. Agree with recs. for electrolyte replacement. Continue current medical mgmt., continue amio.
[2017-04-29 15:11] LABS: Basophils % 0.6 %; Eosinophils % 1.9 %; Hematocrit 35.9 % (35.3-44.9); Immature Granulocytes % 0.5 % (0-4); Lymphocytes % 14.2 %; Mean Corpuscular HGB Conc 30.6 g/dL (31.6-35.5); Mean Corpuscular Hemoglobin 28.2 pg (28.0-33.3); Mean Corpuscular Volume 92.1 fL (83.0-100.0); Mean Platelet Volume 10.3 fL (9.4-12.4); Monocytes % 8.4 %; Platelet Count 250 K/mcL (140-400); Red Cell Distribution Width 15.8 % (11.5-14.5); Segmented Neutrophils % 74.4 %
[2017-04-29 15:12] LABS: Basophils # 0.1 K/mcL (0.0-0.2); Eosinophils # 0.2 K/mcL (0.0-0.6); Lymphocytes # 1.6 K/mcL (0.6-4.6); Monocytes # 0.9 K/mcL (0.0-1.3); Neutrophils # 8.3 K/mcL (1.6-8.9)
[2017-04-29] MEDS: *HR* Morphine 2 MG/ML SYRINGE IVP PRN ×2 (15:43→20:17)
--- NOTE | 2017-04-29 15:59 | Event Note ---
Date of Encounter: 04/29/17 Time of Encounter: 09:30 67-year-old female with history of hypertension, diabetes, COPD, V. tach status post ICD placement, obstructive sleep apnea, chronic diarrhea, admitted after receiving 2 shocks from her ICD, while at a doctor's appointment with her . She also fell down and injured her face and extremities secondary to the shock. Patient seen and examined at bedside. Reports musculoskeletal pain secondary to mechanical fall. No chest pain, palpitations, dyspnea. Chest-S1, S2 heard. Lungs are clear to auscultation. AICD discharge- no further events since admission. Continue amiodarone and beta melva. Follow-up echocardiogram and cardiology consult. Noted to have significant electrolyte imbalance with hypokalemia and hypomagnesemia, will supplement to maintain magnesium of for at least 2 and potassium at least 4. Chronic diarrhea-patient follows with GI as outpatient, diagnosed with irritable bowel syndrome, trying different medications to help with her symptoms. GI losses are likely causing her electrolyte imbalance. Supportive care. Hypokalemia, hypomagnesemia will supplement with oral and IV potassium chloride and IV magnesium sulfate, start electrolyte protocol. Continue home doses of potassium chloride and magnesium oxide. Atrial fibrillation-currently rate controlled. Continue amiodarone and metoprolol. Patient was taken off long-term anticoagulation due to alveolar hemorrhage in the past. Continue aspirin.
[2017-04-29] MEDS ORDERED: *HR* Promethazine 25 MG/ML VIAL IVP PRN (21:04)
[2017-04-30] MEDS: *HR* Morphine 2 MG/ML SYRINGE IVP PRN ×3 (03:19→16:25)
[2017-04-30 04:17] LABS: BUN/Creatinine Ratio 20 (6-26); Blood Urea Nitrogen 18 mg/dL (7-20); Calcium 9.3 mg/dL (8.6-10.8); Carbon Dioxide 18 mEq/L (19-29); Chloride 114 mEq/L (98-109); Glucose 188 mg/dL (70-99); Osmolality,Calculated 297 (280-300); Phosphorous 3.5 mg/dL (2.3-4.7); Potassium 4.2 mEq/L (3.5-4.5); Sodium 140 mEq/L (136-145); eGFR For African Americans > 60 (> 60); eGFR For Non-African Americans > 60 (> 60)
[2017-04-30] MEDS: *HR* Heparin 5,000 UNIT/ML VIAL SQ SCH (06:02)
[2017-04-30] MEDS: *HR* OxyCODONE/APAP 5/325 TABLET PO PRN ×3 (06:02→13:10)
[2017-04-30] MEDS: *HR* Amiodarone 200 MG TABLET PO SCH (07:34)
[2017-04-30] MEDS: Cholecalciferol (D-3) 1,000 UNIT TABLET PO SCH (07:34)
[2017-04-30] MEDS: Magnesium Oxide 400 MG TABLET PO SCH (07:34)
[2017-04-30] MEDS: Aspirin 81 MG TAB.CHEW PO SCH (07:34)
[2017-04-30] MEDS: Multivit/Ca/Min/Fe/FA 1 TAB TABLET PO SCH (07:34)
--- NOTE | 2017-04-30 08:09 | Cardiology Progress Note ---
Date of Encounter: 04/30/17 Time of Encounter: 08:05 Assessment and Plan (1) AICD discharge Current Visit: Yes Status: Acute Per Cardiology: Has hx of ICD for VF Arrest following R on T. [employer] ICD interrogation report per Dr. Allan Kearns showed Afib with RVR, not VT in the 190s 04/28/17 at 1955 with one shock of 35 J with conversion to sinus rhythm. Remains CP free. Trops negative x 3. Last [facility] 05/2016: Coronary arteries angiographically normal. Echo 04/2017 shows EF preserved 60%, moderate diastolic dysfunction, no significant valvular dysfunction, mild pulmonary hypertension, NSWMA. Suspect in relation to low potassium and low magnesium (3.4 and <0.7 on arrival). Now 4.2 and 2.0. On Lopressor 50mg PO BID and amiodarone 200mg PO daily. Tele shows no recurrent afib. Per discussion with Dr. Denney and Dr. Allan Kearns, no further recs, will s/o, re-consult PRN, f/u as scheduled. (2) PAF (paroxysmal atrial fibrillation) Current Visit: No Status: Chronic Per Cardiology: No recurrent afib noted on tele. Remains on BB and amio. Regarding senior living AC, had previously attempted Coumadin, but had apparent alveolar hemorrhage. Patient does not desire to evaluate any other AC options other than the asa she is currently taking. Patient aware of increased stroke risk. Education provided regarding stroke like picture similar to call 911. Patient and verbalized understanding and agreed with plan. (3) Hypokalemia Current Visit: Yes Status: Acute Per Cardiology: Replaced per primary and improved. Recommend keep K+ greater/= 4.0. (4) Hypomagnesemia Current Visit: Yes Status: Chronic Per Cardiology: <0.7 on arrival, now 2.0. Mag Oxide 400mg PO BID. Keep Mag greater/=2.0. Appears chronic with her persistent diarrhea and reported significant weight loss. Consider nephrology consult tot evaluate further causes of low mag. (5) Laceration of face Current Visit: Yes Status: Acute Per Cardiology: Sutures D&I. Head and Face CT negative. Qualifiers: Encounter type: initial encounter Qualified Code(s): S01.81XA - Laceration without foreign body of other part of head, initial encounter Discussion w patient/family: The assessment and plan as outlined above was discussed with the patient and/or family members who expressed understanding and agreement. All questions were answered. Thank you for involving us in the care of your patient. Please call with any questions. Subjective Principal diagnosis: Afib RVR, ICD Shock, Facial Lac Interval history: Patient denies any new concerns or complaints overnight. She reports right elbow soreness. She denies any chest pain, shortness of breath, palpitations. Denies any further ICD shocks. Objective Vital Signs, Last 4 Hours Pulse Resp BP Pulse Ox 04/30/17 07:50 62 04/30/17 07:34 63 15 109/75 97 General: Conversant, No Apparent Distress Cardiac: Reg Rate and Rhythm, Normal S1 and S2, No Murmur Lungs: Normal Breath Sounds, No Wheeze, Rales, Rhonchi Neuro: Alert and responsive, No focal deficits noted Skin: Other (mid forehead inicision with sutures dry and intact) Results 04/29/17 14:28 04/30/17 03:24 Lab Results Laboratory Tests 04/30/17 04/30/17 03:24 03:24 Potassium 4.2 Magnesium 2.[address] 04/28/17 20:51 IMPRESSION: No acute abnormality of the cervical spine. Diffuse osteopenia. Moderate/severe multilevel degenerative changes with multilevel posterior disc osteophyte complexes. D/ / 04/28/2017 22:20:58 Modesto Layton MD / victorino Interpreting Provider: Modesto Layton MD Head CT 04/28/17 20:51 IMPRESSION: No acute intracranial abnormality. Small frontal scalp laceration. D/ / 04/28/2017 22:21:29 Modesto Layton MD / victorino Interpreting Provider: Modesto Layton MD Echocardiogram 04/29/17 01:06 Impressions: Normal LV systolic function, LVEF 60%. Mild LV septal hypertrophy. No evidence of LVOT obstruction. Moderate left ventricular diastolic dysfunction. Normal right ventricular size and function. A device lead was visualized in the right atrium and right ventricle. Mildly dilated left atrium. No significant valvular dysfunction. Mild pulmonary hypertension. Estimated RVSP = 36 mmHg. Left Ventricular Wall Motion: Rest Echo Findings All wall segments showed normal motion. Findings: Study Quality * Suboptimal echo windows. ECG Findings * Sinus rhythm with PVCs. Left Ventricle * Normal LV systolic function, LVEF 60%. * Normal LV chamber size. * Mild LV septal hypertrophy. No evidence of LVOT obstruction. * Moderate left ventricular diastolic dysfunction. Right Ventricle * Normal right ventricular size and function. Device lead * A device lead was visualized in the right atrium and right ventricle. Left Atrium * Mildly dilated left atrium. Right Atrium * Normal right atrial size. Aorta * Normally sized aortic root. Pericardium * There is no pericardial effusion present. IVC * The IVC is not well evaluated. Aortic Valve * Aortic valve not well visualized. * No aortic stenosis. * No aortic regurgitation. Mitral Valve * Mild mitral annular calcification * No mitral stenosis. * Trace mitral regurgitation. Tricuspid Valve * Normal tricuspid valve structure. * No tricuspid stenosis. * Trace tricuspid regurgitation. * Mild pulmonary hypertension. Estimated RVSP = 36 mmHg. Pulmonic Valve * Pulmonic valve not well visualized. * No pulmonic stenosis. * No pulmonic regurgitation. Elbow X-Ray 04/29/17 15:18 IMPRESSION: Suggestion of a nondisplaced radial head fracture, with a moderate-sized joint effusion. D/ / James Pineda MD / James Pineda MD Interpreting Provider: James Pineda MD Active Medications Acetaminophen (Tylenol) 650 mg PO Q6HR PRN PRN Reason: Mild Pain (1-3) Stop: 10/29/17 01:02 Last Admin: 04/29/17 21:09 Dose: 650 mg Albuterol Sulfate (Albuterol Inhaler) 1 puff IH Q4HR PRN PRN Reason: Difficulty breathing Stop: 10/29/17 01:07 Amiodarone HCl (Cordarone) 200 mg PO DAILY [facility] Stop: 10/29/17 09:01 Last Admin: 04/30/17 07:34 Dose: 200 mg Aspirin (Aspirin) 81 mg PO DAILY [facility] Stop: 10/29/17 09:01 Last Admin: 04/30/17 07:34 Dose: 81 mg Beclomethasone Dipropionate (Qvar 40 Mcg) 1 puff IH BIDR [facility] PRN Reason: Protocol Stop: 10/29/17 10:01 Last Admin: 04/29/17 22:03 Dose: 1 puff Calcium Carbonate (Tums) 1,000 mg PO BID [facility] Stop: 10/29/17 09:01 Last Admin: 04/30/17 07:34 Dose: 1,000 mg Docusate Sodium (Colace) 100 mg PO BID PRN PRN Reason: Constipation Stop: 10/29/17 01:02 Ferrous Sulfate (Ferrous Sulfate) 325 mg PO DAILY [facility] Stop: 10/29/17 09:01 Last Admin: 04/30/17 07:34 Dose: 325 mg Heparin Sodium (Porcine) (Heparin) 5,000 unit SQ Q12HCO [facility] Stop: 10/29/17 06:01 Last Admin: 04/30/17 06:02 Dose: 5,000 unit Magnesium Sulfate 2 gm/ (Dextrose) 104 mls @ 50 mls/hr IVPB Q6H PRN PRN Reason: Hypomagnesemia Stop: 10/29/17 13:56 Magnesium Oxide (Mag-Ox) 400 mg PO BID [facility] PRN Reason: Protocol Stop: 10/29/17 12:31 Last Admin: 04/30/17 07:34 Dose: 400 mg Metoprolol Tartrate (Lopressor) 50 mg PO BID [facility] Stop: 10/29/17 09:01 Last Admin: 04/30/17 07:34 Dose: 50 mg Morphine Sulfate (Morphine Sulfate) 2 mg IVP Q4HR PRN PRN Reason: Pain Stop: 10/29/17 01:02 Last Admin: 04/30/17 03:19 Dose: 2 mg Multivitamins/Calcium (Thera M Plus) 1 tab PO DAILY [facility] Stop: 10/29/17 09:01 Last Admin: 04/30/17 07:34 Dose: 1 tab Naloxone HCl (Narcan) 0.4 mg IVP Q2MIN PRN PRN Reason: Opioid Reversal Stop: 10/29/17 01:02 Omeprazole (Prilosec) 20 mg PO 0630 [facility] PRN Reason: Protocol Stop: 10/29/17 06:31 Last Admin: 04/30/17 06:02 Dose: 20 mg Oxycodone/Acetaminophen (Percocet 5/325) 1 each PO Q6HR PRN PRN Reason: Pain Stop: 10/29/17 11:05 Last Admin: 04/30/17 06:02 Dose: 1 each Potassium Chloride (Potassium Chloride) 20 meq PO DAILY [facility] Stop: 10/29/17 09:01 Last Admin: 04/30/17 07:33 Dose: 20 meq Potassium Chloride (Potassium Chloride) 40 meq PO DAILY PRN PRN Reason: Hypokalemia Stop: 10/29/17 13:56 Promethazine HCl (Phenergan) 12.5 mg IVP Q8H PRN PRN Reason: Nausea And Vomiting Stop: 10/29/17 21:05 Last Admin: 04/29/17 21:09 Dose: 12.5 mg Vitamin D (Vitamin D) 1,000 unit PO DAILY [facility] Stop: 10/29/17 09:01 Last Admin: 04/30/17 07:34 Dose: 1,000 unit - Imaging and Cardiology Echo: report reviewed - EKG Interpretation EKG results cardiology: other (Telemetry reviewed with average heart rate the past 12 hours 69, sinus rhythm, no VT or A. fib noted) Consult Discharge Plan - Plan Referrals: Sloane Murphy DO [Primary Care Provider] - 05/07/17 9:30 am Allan Kearns MD [Partnered Physician] - (CARDIOLOGY WILL CALL PATIENT AT HOME WITH A FOLLOW UP APPOINTMENT)
--- NOTE | 2017-04-30 08:31 | Electrocardiograph Report ---
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
[2017-04-30] MEDS: Beclomethasone 40mcg MDI IH SCH (10:35)
[2017-04-30 11:07] VITALS: BP 120/72
[2017-04-30 15:37] LABS: BUN/Creatinine Ratio 23 (6-26); Blood Urea Nitrogen 23 mg/dL (7-20); Calcium 9.3 mg/dL (8.6-10.8); Carbon Dioxide 20 mEq/L (19-29); Chloride 115 mEq/L (98-109); Glucose 152 mg/dL (70-99); Osmolality,Calculated 299 (280-300); Potassium 4.6 mEq/L (3.5-4.5); Sodium 141 mEq/L (136-145); eGFR For African Americans > 60 (> 60); eGFR For Non-African Americans 57 (> 60)
--- NOTE | 2017-04-30 15:40 | Orthopedic Consult Note ---
Date of Encounter: 04/30/17 Time of Encounter: 15:38 Assessment and Plan (1) Fracture of radial head, right, closed Current Visit: Yes Status: Acute Stable healing Fracture Patient will be placed into a sling. Nonweightbearing to right upper extremity She is allowed to do gentle motion exercises within the pain-free arc of motion Ice to right elbow Follow-up in the office in 1-2 weeks. Qualifiers: Encounter type: initial encounter Fracture alignment: nondisplaced Qualified Code(s): S52.124A - Nondisplaced fracture of head of right radius, initial encounter for closed fracture History of Present Illness Chief complaint: Consultation for right elbow fracture HPI: Ms. Hebert is a 67 year old female status post a fall yesterday after her defibrillator went off twice. Patient complains of right elbow pain. Patient states no pain at rest, but pain with motion. Past Med Surg Social Fam HX - Past Medical History Medical history: atrial fibrillation, COPD, diabetes, hyperlipidemia, hypertension, myocardial infarction, other (h/o ventricular tachycardia) Psychiatric history: no psych history - Past Surgical History Surgical History: hysterectomy, pacemaker/AICD - Social History Smoking Status: Never smoker Smokeless Tobacco Status: No Alcohol use: none Drug use: none - Family History Mother Living Status: Hx Family Endocrine Disorder: Yes (dM) Medications and Allergies Aspirin 81 mg PO DAILY 06/05/16 [History] Beclomethasone Diprop 40mcg [QVAR 40 mcg] 1 puff IH BID 06/05/16 [History] Cholecalciferol (Vitamin D3) [Vitamin D3] 1,000 unit PO DAILY 06/05/16 [History] Metoprolol [Lopressor] 50 mg PO BID 06/05/16 [History] Multivitamin [Multivitamins] 1 cap PO DAILY 06/05/16 [History] Oxygen 2 l NS AD 06/05/16 [History] Albuterol Sulfate [Albuterol Inhaler] 1 puff IH Q4HR PRN #2 puff 06/26/16 [Rx] Amiodarone [Cordarone] 200 mg PO DAILY 06/27/16 [History] Furosemide [Lasix] 40 mg PO DAILY tablet 07/06/16 [Rx] Potassium Chloride 20 meq PO DAILY tab.er.prt 07/06/16 [Rx] Calcium Carbonate [Calcium] 1,000 mg PO BID 10/04/17 [History] Ferrous Sulfate 325 mg PO DAILY 04/28/17 [History] Magnesium Chloride [Magnesium Dr] 128 mg PO TID 04/28/17 [History] Omeprazole [PriLOSEC] 20 mg PO DAILY 04/28/17 [History] 3 Allergy/AdvReac Type Severity Reaction Status Date / Time peanut Allergy Hives Verified 07/04/16 05:24 zinc Allergy Hives Verified 07/04/16 05:24 Sulfa (Sulfonamide AdvReac Mild constipatio Verified 07/04/16 05:24 Antibiotics) n All Systems Reviewed: A 10-system review of systems was performed and is negative for pertinent findings except as documented above in the HPI. Physical Exam - Constitutional Vitals: Temp Pulse Resp BP Pulse Ox 98.7 F 66 18 120/72 95 04/30/17 11:04 04/30/17 11:25 04/30/17 11:04 04/30/17 11:04 04/30/17 11:04 - Elbow right Location of pain elbow: lateral Pain modifiers elbow: with motion, with activity Stiffness: Yes Swelling: Yes Tenderness with palpation: other (Over radial head) Full ROM: yes (Limited range of motion from 8020 degrees with pain,) ROM: supination: Limited (Painful) ROM: pronation: Limited (Painful) - Wrist & Hand right Location of pain: no pain (Mild tenderness at this radius, pain-free range of motion, initially stiff, mild stiffness of digits. No swelling no crepitus. Neurovascular intact distally.) Results - Labs Result Diagrams: 04/29/17 14:28 04/30/17 13:49 Labs: Abnormal lab results Hgb 11.0 g/dL (11.5-15.4) L 04/29/17 14:28 MCHC 30.6 g/dL (31.6-35.5) L 04/29/17 14:28 RDW 15.8 % (11.5-14.5) H 04/29/17 14:28 PT 13.6 Seconds (9.4-12.1) H 04/29/17 04:06 Potassium 4.6 mEq/L (3.5-4.5) H 04/30/17 13:49 Chloride 115 mEq/L (98-109) H 04/30/17 13:49 BUN 23 mg/dL (7-20) H 04/30/17 13:49 Est GFR (Non-Af Amer) 57 (> 60) L 04/30/17 13:49 Glucose 152 mg/dL (70-99) H 04/30/17 13:49 Serum Total Protein 5.7 g/dL (6.0-8.3) L 04/29/17 04:06 Albumin 2.8 g/dL (3.5-5.0) L 04/29/17 04:06 Albumin/Globulin Ratio 1.0 (1.1-2.2) L 04/29/17 04:06 HDL Cholesterol 20 mg/dL (40-59) L 04/29/17 04:06 All other labs normal. - Diagnostic results Elbow x-ray: image reviewed (Right elbow arthritic changes, questionable nondisplaced radial head fracture, positive effusion) Consult Discharge Plan - Plan Referrals: Sloane Murphy DO [Primary Care Provider] - 05/07/17 9:30 am Allan Kearns MD [Partnered Physician] - (CARDIOLOGY WILL CALL PATIENT AT HOME WITH A FOLLOW UP APPOINTMENT)
--- NOTE | 2017-04-30 15:55 | Discharge Summary ---
Date of Encounter: 04/30/17 Time of Encounter: 09:30 - Discharge Diagnosis (1) AICD discharge Priority: Primary Status: Acute (2) Hypomagnesemia Priority: Primary Status: Acute (3) Hypokalemia Priority: Primary Status: Acute (4) Fracture of radial head, right, closed Priority: Primary Status: Acute Qualifiers: Encounter type: initial encounter Fracture alignment: nondisplaced Qualified Code(s): S52.124A - Nondisplaced fracture of head of right radius, initial encounter for closed fracture (5) Diabetes mellitus, type 2 Priority: Secondary Status: Chronic Qualifiers: Diabetes mellitus complication status: with unspecified complications Diabetes mellitus long term care administrator insulin use: without fdc use Qualified Code( s): E11.8 - Type 2 diabetes mellitus with unspecified complications (6) Dyslipidemia Priority: Secondary Status: Chronic (7) Chronic diarrhea Priority: Secondary Status: Chronic (8) Atrial fibrillation Priority: Secondary Status: Chronic Qualifiers: Atrial fibrillation type: paroxysmal Qualified Code(s): I48.0 - Paroxysmal atrial fibrillation (9) LUIS on CPAP Priority: Secondary Status: Chronic - Discharge Medications Prescriptions: OxyCODONE/APAP 5/325 [Percocet 5/325 MG] 1 each PO Q6HR PRN #15 tablet PRN Reason: Pain Home Medications: Aspirin 81 mg PO DAILY 06/05/16 [History] Beclomethasone Diprop 40mcg [QVAR 40 mcg] 1 puff IH BID 06/05/16 [History] Cholecalciferol (Vitamin D3) [Vitamin D3] 1,000 unit PO DAILY 06/05/16 [History] Metoprolol [Lopressor] 50 mg PO BID 06/05/16 [History] Multivitamin [Multivitamins] 1 cap PO DAILY 06/05/16 [History] Oxygen 2 l NS AD 06/05/16 [History] Albuterol Sulfate [Albuterol Inhaler] 1 puff IH Q4HR PRN #2 puff 06/26/16 [Rx] Amiodarone [Cordarone] 200 mg PO DAILY 06/27/16 [History] Furosemide [Lasix] 40 mg PO DAILY tablet 07/06/16 [Rx] Potassium Chloride 20 meq PO DAILY tab.er.prt 07/06/16 [Rx] Calcium Carbonate [Calcium] 1,000 mg PO BID 04/28/17 [History] Ferrous Sulfate 325 mg PO DAILY 04/28/17 [History] Magnesium Chloride [Magnesium Dr] 128 mg PO TID 04/28/17 [History] Omeprazole [PriLOSEC] 20 mg PO DAILY 04/28/17 [History] OxyCODONE/APAP 5/325 [Percocet 5/325 MG] 1 each PO Q6HR PRN #15 tablet 04/30/17 [Rx] Allergies/Adverse Reactions: 3 Allergy/AdvReac Type Severity Reaction Status Date / Time peanut Allergy Hives Verified 07/04/16 05:24 zinc Allergy Hives Verified 07/04/16 05:24 Sulfa (Sulfonamide AdvReac Mild constipatio Verified 07/04/16 05:24 Antibiotics) n Procedures/tests Complete & Pending: Procedures Performed prior 72 hours Category Date Time Status EV echocardiogram Routine Y 04/29/17 01:06 Completed Date of admission: 04/29/17 01:01 Primary care physician: Maribel Fernandez Consults: 04/29/17 13:08 Consult to Electrophysiology (EP) [CONS] Routine Consulting Provider: [facility] [place] Reason for Consult: ICD shock, Dr. Allan Kearns aware Time Notified: 11:00 Call Completed: Yes 04/30/17 10:40 Consult to Orthopedic Surgery [CONS] Routine Consulting Provider: [facility] Reason for Consult: Right radial head fracture Call Completed: Yes Discharging clinician: Savi Dan Anticipated date of discharge: 04/30/17 - Patient Status Disposition: Home, Self-Care Condition: Fair Functional capacity at discharge: independent ambulation Overall status at discharge: patient is progressing back to baseline - Discharge Instructions Instructions: Atrial Fibrillation (DC) Follow Up With: Sloane Murphy DO [Primary Care Provider] - 05/07/17 9:30 am Allan Kearns MD [Partnered Physician] - (CARDIOLOGY WILL CALL PATIENT AT HOME WITH A FOLLOW UP APPOINTMENT) Additional Instructions: F/up with [facility] in 1 week - Diet and Activity Activity: resume usual activities as tolerated (right arm sling at all times, no weight bearing on right arm; ) Diet: diabetic diet, low fat, low cholesterol, low salt diet Hospital course: Ms. Hebert is a 67 year old female with the above medical problems, who presented to the emergency room after receiving 2 shocks from her implantable cardioverter defibrillator. She was noted to have severe electrolyte imbalance with hypokalemia and hypomagnesemia, likely secondary to use of diuretics and chronic diarrhea. Her potassium and magnesium been aggressively supplemented and is currently normal. She does follow with gastroenterology as an outpatient , who diagnosed her with irritable bowel syndrome and she is being tried on different medications to help with diarrhea. She was evaluated by cardiology, ICD device check was completed and reviewed by EP cardiology, noted to have an episode of atrial fibrillation with RVR due to which she received shocks. No further management was recommended and patient is being continued on amiodarone and beta melva. Her arrhythmias are thought to be likely secondary to electrolyte imbalance. She has history of atrial fibrillation, however not a candidate for anticoagulation due to alveolar hemorrhage in recent past. Patient sustained a mechanical fall when she received shocks and had laceration on her nasal bridge and also complaining of right elbow pain. Right elbow x- ray showed nondisplaced right radial head fracture. Orthopedic surgery was consulted and recommended conservative management with right upper extremity sling, nonweightbearing and outpatient follow-up in 1 week. Patient is now medically stable for discharge. - Time Spent with Patient Total time spent providing and/or coordinating discharge services: Greater than 30 minutes (40 min) - Constitutional Vitals: Temp Pulse Resp BP Pulse Ox 98.7 F 66 18 120/72 95 04/30/17 11:04 04/30/17 11:25 04/30/17 11:04 04/30/17 11:04 04/30/17 11:04 General appearance: Present: A&O X 3, answers questions appropriately - Respiratory Respiratory exam: Present: CTAB. Absent: accessory muscle use, rales, rhonchi, wheezes - Cardiovascular Cardiovascular exam: Present: RRR, +S1, +S2. Absent: diastolic murmur, gallop, rubs, systolic murmur
--- NOTE | 2017-04-30 18:56 | Electrocardiograph Report ---
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
== END 2017-04-30 18:35 | disposition home or self-care (01) | DRG 309 ==
LOC: 2NNU 20:32 → EMEROO 20:32 → 2NNU 04-29 00:22
PROVIDERS: ADMIT Pediatrics; ATTEND Internal Medicine

== ENCOUNTER 2017-08-19 08:59 | Inpatient (IN) ==
--- NOTE | 2017-08-19 09:30 | Emergency Department Note ---
Disposition Clinical Impression: Hypermagnesemia, Hypocalcemia, Dizziness Disposition: Admitted As Inpatient Condition: Fair Referrals: Sloane Murphy DO [Primary Care Provider] - Forms: ED Satisfaction Letter Time of Disposition: 13:11 General Adult HPI - General Chief complaint: ED Dizziness Stated complaint: Dizzy/Ear Pain Time Seen by Provider: 08/19/17 09:10 Source: patient Limitations: no limitations Nursing Notes Reviewed: Yes Vital Signs Reviewed: Yes - History of Present Illness HPI Narrative: Mrs. Hebert, 67-year-old female, presents from home for evaluation of congestion and dizziness. Onset days ago. Dizziness described as abrupt in onset, the room spinning, occurring both seated and standing, does not fatigue but does spontaneously resolve. Associated with congestion, sporadic dry cough. Nothing noted to improve or worsen her symptoms. She was seen and evaluated 4 days ago by her primary care physician where chest ulcers negative patient was told she has slightly high magnesium - she was told to discontinue her magnesium supplements for several days. PMH: Hypertension, hyperlipidemia, CAD, remote OR, COPD, IBS-diarrhea. ROS: Positive: As above Negative: Fever, productive cough, dyspnea, chest pain, diaphoresis, and usual back pain, headache, falls, numbness, tingling, weakness, abdominal pains, dysuria Pain Scale: 5 - Related Data Home Medications Medication Instructions Recorded Confirmed Aspirin 81 mg PO DAILY 06/05/16 08/19/17 Cholecalciferol (Vitamin D3) 1,000 unit PO DAILY 06/05/16 08/19/17 [Vitamin D3] Metoprolol [Lopressor] 50 mg PO BID 06/05/16 08/19/17 Multivitamin [Multivitamins] 1 cap PO DAILY 06/05/16 08/19/17 Oxygen 2 l NS AD 06/05/16 08/19/17 Amiodarone [Cordarone] 200 mg PO DAILY 06/27/16 08/19/17 Calcium Carbonate [Calcium] 1,000 mg PO BID 04/28/17 08/19/17 Ferrous Sulfate 325 mg PO DAILY 04/28/17 08/19/17 Magnesium Chloride [Magnesium Dr] 128 mg PO TID 04/28/17 08/19/17 Omeprazole [PriLOSEC] 20 mg PO DAILY 04/28/17 08/19/17 Alosetron HCl [Alosetron HCl] 0.5 mg PO BID 08/19/17 08/19/17 Baclofen [Lioresal] 10 mg PO TID 08/19/17 08/19/17 Previous Rx's Medication Instructions Recorded Furosemide [Lasix] 40 mg PO DAILY tablet 07/06/16 Potassium Chloride 20 meq PO DAILY tab.er.prt 07/06/16 Allergies Allergy/AdvReac Type Severity Reaction Status Date / Time peanut Allergy Hives Verified 05/16/17 13:35 zinc Allergy Hives Verified 05/16/17 13:35 Sulfa (Sulfonamide AdvReac Mild constipatio Verified 05/16/17 13:35 Antibiotics) n All systems ED: reviewed and negative except as stated. Review of Systems: As Per HPI Past Medical History - Past Medical History Medical history: Reports: atrial fibrillation, COPD, diabetes, hyperlipidemia, hypertension, myocardial infarction, other Surgical history: Reports: hysterectomy, pacemaker/AICD Psychiatric history: Reports: no psych history CLIENT ARCHITECT history: Reports: no CLIENT ARCHITECT history - Social History Smoking Status: Never smoker Smokeless Tobacco Status: No Alcohol use: Reports: none Drug use: Reports: none Physical Exam Vital Signs Reviewed General: Patient is alert, oriented, and in no acute distress. HEENT: No facial asymmetry. Head is normocephalic and atraumatic. PERRLA, EOMI. Nasal turbinates moist and pale. Posterior pharynx without exudates or cobblestoning. Tympanic membranes bilaterally white with effusion; no bulge, retraction, or injection. Trachea midline. Cardiovascular: Heart regular rate and rhythm without clicks, rubs, gallops, or murmurs. No JVD. PMI nondisplaced. Respiratory: Symmetric chest rise with good respiratory effort. Bilateral breath sounds are clear without wheezing, crackles, or rhonchi. Abdomen: Bowel sounds present normoactive x-4 quadrants. Abdomen is soft, nondistended, and nontender. No organomegaly noted. Musculoskeletal: Spontaneously moving all extremities. Neuro: Cranial nerves II through XII without deficit. Sensation light touch intact. DTR 2/4 in upper and lower extremities. No clonus. Psych: Patient's affect is appropriate for situation. - General Limitations: no limitations General appearance: alert Course Course Narrative: Patient's dizziness occurs both with movement and when she is not moving. Her symptoms are exactly reproduced with the gallbladder maneuver (manipulating the angle of her jaw to manipulate her mandibular head to manipulate her eustachian tube). As such, suspect URI causing eustachian tube dysfunction. Vital Signs Temperature 97.7 F 08/19/17 09:00 Pulse Rate 79 08/19/17 09:00 Respiratory Rate 18 08/19/17 09:00 Blood Pressure 114/75 08/19/17 09:00 O2 Sat by Pulse Oximetry 97 08/19/17 09:00 Temperature 97.7 F 08/19/17 09:00 Pulse Rate 69 08/19/17 13:05 Respiratory Rate 18 08/19/17 13:05 Blood Pressure 95/69 08/19/17 13:05 O2 Sat by Pulse Oximetry 97 08/19/17 13:05 Oxygen Delivery Oxygen Delivery Room Air Medical Decision Making - Medical Records Medical records reviewed: Yes I reviewed the patient's medical records. - Lab Data Lab results reviewed: Yes I reviewed the patient's lab results. Result diagrams: 08/19/17 11:18 08/19/17 09:49 Lab Results 08/19/17 08/19/17 08/19/17 Range/Units 09:49 11:18 11:18 WBC 8.6 (4.3-11.1) K/mcL RBC 3.64 L (3.82-4.97) M/mcL Hgb 10.5 L (11.5-15.4) g/dL Hct 33.4 L (35.3-44.9) % MCV 91.8 (83.0-100.0) fL MCH 28.8 (28.0-33.3) pg MCHC 31.4 L (31.6-35.5) g/dL RDW 14.6 H (11.5-14.5) % Plt Count 268 (140-400) K/mcL MPV 10.1 (9.4-12.4) fL Immature Gran % 0.3 (0-4) % Seg Neutrophils % 71.4 % Lymphocytes % 18.3 % Monocytes % 7.3 % Eosinophils % 1.9 % Basophils % 0.8 % Neutrophils # 6.1 (1.6-8.9) K/mcL Lymphocytes # 1.6 (0.6-4.6) K/mcL Monocytes # 0.6 (0.0-1.3) K/mcL Eosinophils # 0.2 (0.0-0.6) K/mcL Basophils # 0.1 (0.0-0.2) K/mcL PT 18.1 H (9.4-12.1) Seconds INR 1.7 APTT 36.0 (26.0-36.0) Seconds Sodium 143 (136-145) mEq/L Potassium 3.8 (3.5-5.1) mEq/L Chloride 114 H (98-107) mEq/L Carbon Dioxide 20 L (23-29) mEq/L BUN 15 (8-23) mg/dL Creatinine 1.22 H (0.60-1.20) mg/dL Est GFR ( Amer) 53 L (> 60) Est GFR (Non-Af Amer) 44 L (> 60) BUN/Creatinine Ratio 12 (6-26) Glucose 97 (70-105) mg/dL Calculated Osmolality 297 (280-300) Calcium 5.1 L* (8.6-10.3) mg/dL Venous Ioniz Calcium (1.15-1.35) mmol/L Magnesium > 8.0 H (1.6-2.6) mg/dL Troponin I (< 0.04) ng/mL 08/19/17 08/19/17 Range/Units 11:18 11:37 WBC (4.3-11.1) K/mcL RBC (3.82-4.97) M/mcL Hgb (11.5-15.4) g/dL Hct (35.3-44.9) % MCV (83.0-100.0) fL MCH (28.0-33.3) pg MCHC (31.6-35.5) g/dL RDW (11.5-14.5) % Plt Count (140-400) K/mcL MPV (9.4-12.4) fL Immature Gran % (0-4) % Seg Neutrophils % % Lymphocytes % % Monocytes % % Eosinophils % % Basophils % % Neutrophils # (1.6-8.9) K/mcL Lymphocytes # (0.6-4.6) K/mcL Monocytes # (0.0-1.3) K/mcL Eosinophils # (0.0-0.6) K/mcL Basophils # (0.0-0.2) K/mcL PT (9.4-12.1) Seconds INR APTT (26.0-36.0) Seconds Sodium (136-145) mEq/L Potassium (3.5-5.1) mEq/L Chloride (98-107) mEq/L Carbon Dioxide (23-29) mEq/L BUN (8-23) mg/dL Creatinine (0.60-1.20) mg/dL Est GFR ( Amer) (> 60) Est GFR (Non-Af Amer) (> 60) BUN/Creatinine Ratio (6-26) Glucose (70-105) mg/dL Calculated Osmolality (280-300) Calcium (8.6-10.3) mg/dL Venous Ioniz Calcium 0.73 L (1.15-1.35) mmol/L Magnesium (1.6-2.6) mg/dL Troponin I < 0.03 (< 0.04) ng/mL - Radiology Data Radiology results reviewed: Yes I reviewed the patient's radiology results. - EKG Data EKG #1 EKG attestation: Yes I reviewed and interpreted this EKG. EKG results narrative: EKG dated 08/19/17 at 10:53 intervertebral sinus rhythm with rate of 64. Intervals concerning was slightly prolonged QTc of 464. U waves present. This is concerning in the context of patient's hypocalcemia. Normal axis. No ST elevations. Nonspecific ST-T changes. Compared to previous dated 05/16/2017 showed no acute ischemic changes comparison.
--- NOTE | 2017-08-19 09:46 | Emergency Department Note ---
START Narrative - START START: I examined this patient and my medical decision-making was reviewed with the Resident Physician. I agree with the documented findings, disposition and treatment plan as described except to the extent set forth below. 67 year old female presents to the eD with complaints of left ear pain and URI symptoms with dizziness that started a few days ago. Nury states that she also has a history of COPD and IBS. Her father most recently which has caused her IBS to flare. She also has a history fo low magnesium. Most recently she was checekd on Wednesday by her PCP and CXR was negative and magneium was within range. WE will treat with scopolamine and steroids and baseline labs. Likely discharge home. 1204: nury is hypocalcemic and hypermag with EKG changes with slightly prolonged QTc and u waves present. We will replace with 1gram calcium gluconate and flat folder and ADMIT to medicine. Godfrey due to IBS electrolyte loss.
[2017-08-19 10:25] LABS: BUN/Creatinine Ratio 12 (6-26); Blood Urea Nitrogen 15 mg/dL (8-23); Calcium 5.1 mg/dL (8.6-10.3); Carbon Dioxide 20 mEq/L (23-29); Chloride 114 mEq/L (98-107); Glucose 97 mg/dL (70-105); Osmolality,Calculated 297 (280-300); Potassium 3.8 mEq/L (3.5-5.1); Sodium 143 mEq/L (136-145); eGFR For African Americans 53 (> 60); eGFR For Non-African Americans 44 (> 60)
[2017-08-19 11:28] LABS: Basophils # 0.1 K/mcL (0.0-0.2); Basophils % 0.8 %; Eosinophils # 0.2 K/mcL (0.0-0.6); Eosinophils % 1.9 %; Hematocrit 33.4 % (35.3-44.9); Hemoglobin 10.5 g/dL (11.5-15.4); Immature Granulocytes % 0.3 % (0-4); Lymphocytes # 1.6 K/mcL (0.6-4.6); Lymphocytes % 18.3 %; Mean Corpuscular HGB Conc 31.4 g/dL (31.6-35.5); Mean Corpuscular Hemoglobin 28.8 pg (28.0-33.3); Mean Corpuscular Volume 91.8 fL (83.0-100.0); Mean Platelet Volume 10.1 fL (9.4-12.4); Monocytes # 0.6 K/mcL (0.0-1.3); Monocytes % 7.3 %; Neutrophils # 6.1 K/mcL (1.6-8.9); Platelet Count 268 K/mcL (140-400); Red Blood Count 3.64 M/mcL (3.82-4.97); Red Cell Distribution Width 14.6 % (11.5-14.5); Segmented Neutrophils % 71.4 %
[2017-08-19 11:33] LABS: INR 1.7; Prothrombin Time 18.1 Seconds (9.4-12.1)
[2017-08-19 11:41] LABS: VBG Ionized Calcium 0.73 mmol/L (1.15-1.35)
[2017-08-19] MEDS ORDERED: Calcium Chloride 1,000 MG in 0.9 % Sodium Chloride 100 ML IVPB ONE ×3 (12:25→19:57)
[2017-08-19] MEDS ORDERED: Furosemide 40 MG/4 ML VIAL IVP ONE ×2 (12:32→19:58)
[2017-08-19] MEDS ORDERED: 0.9 % Sodium Chloride 1,000 ML IVC SCH (12:45)
[2017-08-19] MEDS ORDERED: Naloxone 0.4 MG/ML INJ IVP PRN (13:48)
[2017-08-19] MEDS ORDERED: Ondansetron 4 MG/2 ML VIAL IVP PRN (13:48)
--- NOTE | 2017-08-19 13:58 | Internal Med History&Physical ---
Date of Encounter: 08/19/17 Time of Encounter: 13:56 Assessment and Plan (1) Hypermagnesemia Current visit: Yes Status: Acute Severe hypermagnesemia with hypocalcemia, absent reflexes No signs of confusion, minimal EKG changes Administer IV calcium aggressively, stop magnesium supplements Start IV fluids with Lasix, recheck magnesium and calcium later today Omeprazole for GI prophylaxis and subcutaneous heparin for DVT prophylaxis. The patient will be admitted for observation. Full code. Time spent on this admission 40 minutes. 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 Hebert is a 67 year old female with a past medical history of A. fib not on anticoagulation due to prior history of alveolar hemorrhage, COPD not oxygen dependent, diabetes type 2 not insulin-dependent, ventricular fibrillation and hypomagnesemia for which he was taking magnesium chloride supplements 128 mg 3 times a day. Was called by her primary care physician office as her magnesium level was high and her calcium levels were low, today at the emergency room magnesium is more than 8, calcium is 5.1 and ionized calcium 0.73. She received calcium gluconate the ER but no fluids have been started. EKG shows nonspecific ST and T wave changes in the lateral leads. Patient has been feeling congested and easy, complaining of severe weakness. Lower extremity pulses are absent, no evidence of heart block. Blood pressure was 95/69 but there is no bradycardia. INR is 1.7. Otherwise the patient is complaining of left ear pain. No other complaints Past Med Surg Social Fam HX - Past Medical History Medical history: atrial fibrillation (Not on anticoagulation due to history of pulmonary hemorrhage, used to be on Coumadin), COPD (Not oxygen dependent), coronary artery disease, diabetes (Not insulin-dependent), hyperlipidemia, hypertension, myocardial infarction, other (Chronic kidney disease stage III, GERD, ileus, ventricular fibrillation status post AICD placement, hypomagnesemia ) Psychiatric history: no psych history - Past Surgical History Surgical History: hysterectomy, pacemaker/AICD (AICD), other (Knee surgery, Achilles tendon repair bilaterally, back cyst removal) - Social History Smoking Status: Never smoker Smokeless Tobacco Status: No Alcohol use: none Drug use: none - Family History Mother Living Status: Hx Family Endocrine Disorder: Yes (dM) - Additional Family History Additional family history: Father Alzheimer's, mother with diabetes Internal Medicine - H&P: Meds Aspirin 81 mg PO DAILY 06/05/16 [History] Cholecalciferol (Vitamin D3) [Vitamin D3] 1,000 unit PO DAILY 06/05/16 [History] Metoprolol [Lopressor] 50 mg PO BID 06/05/16 [History] Multivitamin [Multivitamins] 1 cap PO DAILY 06/05/16 [History] Oxygen 2 l NS AD 06/05/16 [History] Amiodarone [Cordarone] 200 mg PO DAILY 06/27/16 [History] Furosemide [Lasix] 40 mg PO DAILY tablet 07/06/16 [Rx] Potassium Chloride 20 meq PO DAILY tab.er.prt 07/06/16 [Rx] Calcium Carbonate [Calcium] 1,000 mg PO BID 04/28/17 [History] Ferrous Sulfate 325 mg PO DAILY 04/28/17 [History] Magnesium Chloride [Magnesium Dr] 128 mg PO TID 04/28/17 [History] Omeprazole [PriLOSEC] 20 mg PO DAILY 04/28/17 [History] Alosetron HCl [Alosetron HCl] 0.5 mg PO BID 08/19/17 [History] Baclofen [Lioresal] 10 mg PO TID 08/19/17 [History] 3 Allergy/AdvReac Type Severity Reaction Status Date / Time peanut Allergy Hives Verified 05/16/17 13:35 zinc Allergy Hives Verified 05/16/17 13:35 Sulfa (Sulfonamide AdvReac Mild constipatio Verified 05/16/17 13:35 Antibiotics) n All Systems PM: A 10-system review of systems was performed and is negative for pertinent findings except as documented above in the HPI. Review of systems: Dizziness, other systems out of the 10 reviewed were negative - Constitutional Vitals: Temp Pulse Resp BP Pulse Ox 97.7 F 69 18 95/69 97 08/19/17 09:00 08/19/17 13:05 08/19/17 13:05 08/19/17 13:05 08/19/17 13:05 General appearance: Present: A&O X 3 - Head Head exam: Present: atraumatic, normocephalic - Eye Eye exam: Present: PERRL, conjuntiva pink, sclera anicteric Pupils: Present: PERRL - Neck Neck exam general surgery: Present: supple, trachea midline. Absent: lymphadenopathy - Respiratory Respiratory exam: Present: CTAB. Absent: accessory muscle use, rales, rhonchi, wheezes - Cardiovascular Cardiovascular exam: Present: RRR, +S1, +S2. Absent: diastolic murmur, gallop, rubs, systolic murmur - GI/Abdominal GI/Abdominal exam: Present: normal bowel sounds, soft, no peritoneal signs. Absent: distended, tenderness - Extremities Exam Extremities exam: Present: warm, radial pulses palpable and symmetrical. Absent : calf tenderness, cyanotic, pedal edema Additional comments: Lower extremity reflexes are absent - Neurological Exam Neurological exam: Present: CN II-XII intact, oriented X3, no focal deficits. Absent: pronater drift, facial droop, speech deficit Additional comments: No confusion. Left tympanic membrane appears edematous with minimal amount of fluid, no evidence of infection - Skin Skin exam: Present: dry, intact Internal Med - H&P Results - Labs CBC & Chem 7: 08/19/17 11:18 08/19/17 09:49 Labs: Short CBC 08/19/17 Range/Units 11:18 WBC 8.6 (4.3-11.1) K/mcL Hgb 10.5 L (11.5-15.4) g/dL Hct 33.4 L (35.3-44.9) % Plt Count 268 (140-400) K/mcL Neutrophils # 6.1 (1.6-8.9) K/mcL BMP 08/19/17 09:49 Sodium 143 Potassium 3.8 Chloride 114 H Carbon Dioxide 20 L BUN 15 Creatinine 1.22 H Glucose 97 Calcium 5.1 L* Cardiac Enzymes 08/19/17 Range/Units 11:18 Troponin I < 0.03 (< 0.04) ng/mL - Impressions ITS Impressions Chest X-Ray 08/19/17 11:06 IMPRESSION: No significant interval change. No radiographic evidence of acute cardiopulmonary process. D/ / Elias Mccurdy MD / Elias Mccurdy MD Interpreting Provider: Elias Mccurdy MD
[2017-08-19] MEDS: Cholecalciferol (D-3) 1,000 UNIT TABLET PO SCH (15:34)
[2017-08-19] MEDS: Baclofen 10 MG TABLET PO SCH ×2 (15:34→15:36)
[2017-08-19] MEDS: 0.9 % Sodium Chloride 1,000 ML IVC SCH ×2 (15:35→20:34)
[2017-08-19] MEDS: *HR* Heparin 5,000 UNIT/ML VIAL SQ SCH (16:54)
[2017-08-19] MEDS: Acetaminophen 325 MG TABLET PO PRN (20:25)
[2017-08-20] MEDS: *HR* OxyCODONE Immed Rel 5 MG TABLET PO PRN (02:11)
[2017-08-20] MEDS: *HR* Heparin 5,000 UNIT/ML VIAL SQ SCH ×2 (05:35→18:30)
[2017-08-20 06:27] LABS: BUN/Creatinine Ratio 12 (6-26); Blood Urea Nitrogen 16 mg/dL (8-23); Calcium 6.7 mg/dL (8.6-10.3); Carbon Dioxide 23 mEq/L (23-29); Chloride 109 mEq/L (98-107); Glucose 105 mg/dL (70-105); Osmolality,Calculated 298 (280-300); Potassium 3.5 mEq/L (3.5-5.1); Sodium 143 mEq/L (136-145); eGFR For African Americans 46 (> 60); eGFR For Non-African Americans 38 (> 60)
[2017-08-20] MEDS: 0.9 % Sodium Chloride 1,000 ML IVC SCH ×2 (07:02→17:58)
[2017-08-20] MEDS ORDERED: Calcium Gluconate 2,000 MG in D5% in Water 100 ML IVPB ONE (07:59)
[2017-08-20] MEDS ORDERED: Calcium Gluconate 2,000 MG in 0.9 % Sodium Chloride 100 ML IVPB ONE (08:15)
[2017-08-20 08:44] LABS: VBG Ionized Calcium 0.84 mmol/L (1.15-1.35); VBG PH 7.38 pH Units (7.32-7.42)
[2017-08-20 08:54] LABS: Albumin 2.9 g/dL (3.5-5.7); Albumin/Globulin Ratio 0.9 (1.1-2.2); Bilirubin,Direct 0.1 mg/dL (0.0-0.2); Bilirubin,Indirect 0.4 mg/dL (0.0-1.2); Bilirubin,Total 0.5 mg/dL (0.3-1.0); Globulin 3.1 g/dL (2.4-3.5)
[2017-08-20 09:03] LABS: Calcium 6.7 mg/dL (8.6-10.3)
[2017-08-20 09:15] LABS: Phosphorous 5.3 mg/dL (2.7-4.5)
--- NOTE | 2017-08-20 09:25 | Internal Med Progress Note ---
Date of Encounter: 08/20/17 Time of Encounter: 08:30 - Assessment and plan (1) Hypocalcemia Current Visit: Yes Status: Acute Assessment and plan: had outpatient labs drawn per PCP. Was called on 08/19 and advised to go to ER for low calcium. Ca 5.1 on arrival. Mg level greater than 8. Per chart review appears that she has been hypocalcemic in the past. Asymptomatic, no tetany. No prolonged QT. Received multiple doses IV calcium gluconate on arrival. Repeat calcium 6.7. Continue IV calcium replacement, IV fluids. LFTs, albumin , phosphorus, intact PTH, vitamin D levels pending. Nephrology consulted (2) Hypermagnesemia Current Visit: Yes Status: Acute Assessment and plan: was taking high dose of magnesium supplement at home due to her past issues with hypo-magnesium. Holding home supplements. Cont IV fluids. Monitor repeat Mg levels (3) Diabetes mellitus, type 2 Current Visit: No Status: Chronic Assessment and plan: per hx. Appears diet controlled. 08/14/17 Hgb A1c 5.1%. Monitor blood sugar. No SSI as she has had severe hypoglycemia in the past. Qualifiers: Diabetes mellitus complication status: with unspecified complications Diabetes mellitus rat exterminator insulin use: without rat exterminator use Qualified Code( s): E11.8 - Type 2 diabetes mellitus with unspecified complications (4) Ventricular fibrillation Current Visit: No Status: Acute Assessment and plan: per hx. Has AICD. Cont amiodarone, BB. (5) DVT prophylaxis Current Visit: No Status: Acute Assessment and plan: heparin - Subjective Interval history: Seen and examined at bedside, patient is new to me. Information obtained from chart review and patient report. Says she does not feel well, complains of general weakness, malaise and overall fatigue. Reports chronic loose stool, no abdominal pain. He does report feeling of dizziness over the last week or so which she suspects is secondary to increase in loose stools. No vision changes , no headaches, no paresthesias. No sensation of room spinning. - Constitutional Vitals: Temp Pulse Resp BP Pulse Ox 97.6 F 59 16 118/75 98 08/20/17 07:47 08/20/17 07:47 08/20/17 07:47 08/20/17 07:47 08/20/17 07:47 General appearance: Present: A&O X 3 - Head Head exam: Present: atraumatic, normocephalic - Eye Eye exam: Present: PERRL, conjuntiva pink, sclera anicteric Pupils: Present: PERRL - Neck Neck exam general surgery: Present: supple, trachea midline. Absent: lymphadenopathy - Respiratory Respiratory exam: Present: CTAB. Absent: accessory muscle use, rales, rhonchi, wheezes - Cardiovascular Cardiovascular exam: Present: RRR, +S1, +S2. Absent: diastolic murmur, gallop, rubs, systolic murmur - GI/Abdominal GI/Abdominal exam: Present: normal bowel sounds, soft, no peritoneal signs. Absent: distended, tenderness - Extremities Exam Extremities exam: Present: warm, radial pulses palpable and symmetrical. Absent : calf tenderness, cyanotic, pedal edema - Neurological Exam Neurological exam: Present: CN II-XII intact, oriented X3, no focal deficits. Absent: pronater drift, facial droop, speech deficit - Skin Skin exam: Present: dry, intact Internal Medicine: Result - Labs CBC & Chem 7: 08/19/17 11:18 08/20/17 05:08 Labs: BMP 08/20/17 08/20/17 05:08 08:23 Sodium 143 Potassium 3.5 Chloride 109 H Carbon Dioxide 23 BUN 16 Creatinine 1.38 H Glucose 105 Calcium 6.7 L 6.7 L Liver Function 08/20/17 Range/Units 08:23 Total Bilirubin 0.5 (0.3-1.0) mg/dL Direct Bilirubin 0.1 (0.0-0.2) mg/dL AST 14 (13-39) Units/L ALT 10 (7-52) Units/L Alkaline Phosphatase 75 (34-104) Units/L Albumin 2.9 L (3.5-5.7) g/dL - ABG Interpretation ABG results: PT/INR, D-dimer PT 18.1 Seconds (9.4-12.1) H 08/19/17 11:18 Consult Discharge Plan - Plan Referrals: Sloane Murphy DO [Primary Care Provider] -
[2017-08-20] MEDS ORDERED: Dextrose Gel 15 GM/37.5 ML TUBE PO PRN ×2 (09:28)
[2017-08-20] MEDS ORDERED: D5% in Water 1,000 ML IVC PRN (09:28)
[2017-08-20] MEDS ORDERED: *HR* Dextrose 50 % in Water (Syg) 50 ML SYRINGE IVP PRN (09:28)
[2017-08-20] MEDS: Cholecalciferol (D-3) 1,000 UNIT TABLET PO SCH (10:09)
[2017-08-20] MEDS: Furosemide 40 MG TABLET PO SCH (10:09)
[2017-08-20] MEDS: *HR* Amiodarone 200 MG TABLET PO SCH (10:10)
[2017-08-20] MEDS: Aspirin 81 MG TAB.CHEW PO SCH (10:10)
[2017-08-20] MEDS: Multivit/Ca/Min/Fe/FA 1 TAB TABLET PO SCH (10:10)
--- NOTE | 2017-08-20 13:39 | Electrocardiograph Report ---
[address] [place] [id number] Test Date: 2017-08-19 Pat Name: Aisha Hebert Department: 103 Room: 3A53 Gender: F Board Runner: TERRI : 1950 Requested By: Sonia Miles Order Number: [id number] Reading MD: Nav Denney MD Measurements Intervals Junior Rate: 65 P: 56 WA: 174 QRS: 7 QRSD: 87 T: 27 QT: 453 QTc: 464 Interpretive Statements SINUS RHYTHM Electronically Signed On 08-20-2017 13:37:45 EST by Nav Denney MD
[2017-08-20 15:41] LABS: Magnesium < 0.5 mg/dL (1.6-2.6)
[2017-08-20 15:41] LABS: Calcium 6.7 mg/dL (8.6-10.3); Magnesium < 0.5 mg/dL (1.6-2.6)
[2017-08-20 15:42] LABS: Magnesium < 0.5 mg/dL (1.6-2.6)
[2017-08-20 15:42] LABS: Magnesium < 0.5 mg/dL (1.6-2.6)
--- NOTE | 2017-08-20 15:52 | Nephrology Consult Note ---
Date of Encounter: 08/20/17 Time of Encounter: 15:00 Assessment and Plan (1) Hypocalcemia Status: Acute Agree with current calcium repletion at 1g bid po since asymptomatic and improving Agree with vitamin D supplements as well PTh low which is not consistent with hypocalcemia (2) DERREK (acute kidney injury) Status: Acute Elevated SCr etiology unclear, will obtain urine studies Continue IVF for now Avoid nephrotoxins if possible (3) Hypermagnesemia Status: Deleted Agree with holding supplements Continue IVF with NS for renal clearance History of Present Illness - Reason for Consult Consult date: 08/20/17 Chronic Kidney Disease (hypocalcemia) Requesting physician: Marion Aguiar - History of Present Illness 67 y o female with PMH of IBS with predominant chronic diarrhea, hypomagnesemia and DM admitted with abnormal labs with calcium at 5.1, magnesium at >8. SCr at 1.22, GFR 44 worsening to 1.38, GFR 38 from pcp's office. Pt denies any nausea or vomiting but reports ongoing diarrhea on/off. She report taking magnesium chloride 3 tabs tid for her low magnesium and takes lasix for CHF/edema. She has been receiciving calcium iv supplements with magnesium held for now. Pt denies any prior history of renal disease but previous SCr noted 1.2 and 1.5 monthe prior Past Med Surg Social Fam HX - Past Medical History Medical history: atrial fibrillation, COPD, coronary artery disease, diabetes, hyperlipidemia, hypertension, myocardial infarction, other Psychiatric history: no psych history - Past Surgical History Surgical History: hysterectomy, pacemaker/AICD, other - Social History Smoking Status: Never smoker Smokeless Tobacco Status: No Alcohol use: none Drug use: none - Family History Mother Living Status: Hx Family Endocrine Disorder: Yes (dM) Medications and Allergies Aspirin 81 mg PO DAILY 06/05/16 [History] Cholecalciferol (Vitamin D3) [Vitamin D3] 1,000 unit PO DAILY 06/05/16 [History] Metoprolol [Lopressor] 50 mg PO BID 06/05/16 [History] Multivitamin [Multivitamins] 1 cap PO DAILY 06/05/16 [History] Oxygen 2 l NS AD 06/05/16 [History] Amiodarone [Cordarone] 200 mg PO DAILY 06/27/16 [History] Potassium Chloride 20 meq PO DAILY tab.er.prt 07/06/16 [Rx] Calcium Carbonate [Calcium] 1,000 mg PO BID 04/28/17 [History] Ferrous Sulfate 325 mg PO DAILY 04/28/17 [History] Magnesium Chloride [Magnesium Dr] 128 mg PO TID 04/28/17 [History] Omeprazole [PriLOSEC] 20 mg PO DAILY 04/28/17 [History] Alosetron HCl 0.5 mg PO BID 08/19/17 [History] Baclofen [Lioresal] 10 mg PO TID 08/19/17 [History] Calcium Carbonate [Tums] 1,000 mg PO TID #90 tab.chew 08/25/17 [Rx] Cholecalciferol (D-3) [Vitamin D] 2,000 unit PO DAILY #30 tablet 08/25/17 [Rx] Magnesium Oxide [Mag-Ox] 400 mg PO BID #60 tablet 08/25/17 [Rx] 3 Allergy/AdvReac Type Severity Reaction Status Date / Time peanut Allergy Hives Verified 05/16/17 13:35 zinc Allergy Hives Verified 05/16/17 13:35 Sulfa (Sulfonamide AdvReac Mild constipatio Verified 05/16/17 13:35 Antibiotics) n Review of Systems All Systems: reviewed and no additional remarkable complaints except as stated ( 10 systems reviewed) Exam - Vital Signs Vital signs: Initial Vital Signs Temp Pulse Resp BP Pulse Ox 97.7 F 79 18 114/75 97 08/19/17 09:00 08/19/17 09:00 08/19/17 09:00 08/19/17 09:00 08/19/17 09:00 Vital Signs - Last 8 Hours Temp Pulse Resp BP Pulse Ox 08/20/17 14:41 97.9 F 65 16 114/75 98 08/20/17 11:27 98.1 F 56 16 114/74 97 Intake and Output 08/19/17 08/20/17 08/20/17 23:59 07:59 15:59 Intake Total 640 / 640 Output Total 700 / 700 Balance -60 / -60 Intake: Oral 640 / 640 Output: Urine 700 / 700 Other: Meal Lunch Percent of Meal Consumed 50% Stool Size Moderate Stool Consistency soft Stool Color Brown # Bowel Movements 0 Blood Glucose* 116 - General Appearance General appearance: well-developed, well-nourished EENT: ATNC, mucous membranes moist Neck: no JVD, supple Respiratory: clear (ant bilat) Cardiology: no edema, normal S1, normal S2 Gastrointestinal: no guarding Integumentary: warm and dry Neurologic: no focal deficit Musculoskeletal: no deformities Psychiatric: mood/affect appropriate, cooperative Results - Lab Results 08/24/17 06:26 08/25/17 05:12 Most recent lab results Calcium 6.7 mg/dL (8.6-10.3) L 08/20/17 14:02 Phosphorus 5.3 mg/dL (2.7-4.5) H 08/20/17 08:23 Magnesium < 0.5 mg/dL (1.6-2.6) L 08/20/17 14:02 Consult Discharge Plan - Plan Referrals: Angelita Floyd CNP [Partnered Physician] - 08/27/17 2:00 pm Kasia Bunn MD [Partnered Physician] - 09/23/17 11:00 am Prescriptions: Calcium Carbonate [Tums] 1,000 mg PO TID #90 tab.chew Cholecalciferol (D-3) [Vitamin D] 2,000 unit PO DAILY #30 tablet Magnesium Oxide [Mag-Ox] 400 mg PO BID #60 tablet
[2017-08-20] MEDS: Magnesium Oxide 400 MG TABLET PO SCH (17:54)
[2017-08-20 20:53] LABS: Potassium,Urine 17.4 mEq/L; Sodium, Urine 141.4 mEq/L
[2017-08-20] MEDS: Acetaminophen 325 MG TABLET PO PRN (21:41)
[2017-08-21] MEDS: 0.9 % Sodium Chloride 1,000 ML IVC SCH (03:52)
[2017-08-21 05:02] LABS: Albumin 2.8 g/dL (3.5-5.7); Bilirubin,Total 0.3 mg/dL (0.3-1.0); Calcium 6.3 mg/dL (8.6-10.3); Globulin 2.9 g/dL (2.4-3.5); Potassium 3.6 mEq/L (3.5-5.1); Total Protein 5.7 g/dL (6.4-8.9)
[2017-08-21] MEDS: *HR* Heparin 5,000 UNIT/ML VIAL SQ SCH ×2 (06:18→17:44)
[2017-08-21] MEDS: Acetaminophen 325 MG TABLET PO PRN ×2 (06:18→20:31)
[2017-08-21] MEDS: Aspirin 81 MG TAB.CHEW PO SCH (07:26)
[2017-08-21] MEDS: *HR* Amiodarone 200 MG TABLET PO SCH (07:26)
[2017-08-21] MEDS: Magnesium Oxide 400 MG TABLET PO SCH ×2 (07:27→20:31)
[2017-08-21] MEDS: Furosemide 40 MG TABLET PO SCH (07:27)
[2017-08-21] MEDS: Cholecalciferol (D-3) 1,000 UNIT TABLET PO SCH ×2 (07:27→12:25)
[2017-08-21] MEDS: Multivit/Ca/Min/Fe/FA 1 TAB TABLET PO SCH (07:27)
[2017-08-21] MEDS ORDERED: Calcium Gluconate 2,000 MG in 0.9 % Sodium Chloride 100 ML IVPB ONE (08:08)
[2017-08-21 08:36] LABS: Magnesium 0.6 mg/dL (1.6-2.6)
[2017-08-21] MEDS ORDERED: Ketorolac 30 MG/ML VIAL IVP ONE (09:11)
[2017-08-21] MEDS ORDERED: Metoclopramide 10 MG/2 ML VIAL IVP ONE (09:11)
--- NOTE | 2017-08-21 09:11 | Internal Med Progress Note ---
Date of Encounter: 08/21/17 Time of Encounter: 09:08 - Assessment and plan (1) Hypocalcemia Current Visit: Yes Status: Acute Assessment and plan: had outpatient labs drawn per PCP. Was called on 08/19/17 and advised to go to ER for low calcium. Ca 5.1 on arrival. Mg level initially reported as greater than 8. Of note, it was reported on 08/20/17 the initial magnesium reading of greater than 8 was lab error due to malfunctioning machine. Corrected magnesium was less than 0.5. Per chart review, has been hypocalcemic in the past. Asymptomatic, no tetany. No prolonged QT. Suspect multifactorial with history IBS and chronic loose stools, low magnesium and possibly see CKD contributing. Received multiple doses IV calcium gluconate on arrival. Continue IV calcium/magnesium replacement, 1/2 normal saline. Nephrology following (2) Hypomagnesemia Current Visit: No Status: Acute Assessment and plan: Magnesium initially reported as greater than 8 on arrival however she was later found to be in air secondary to lab machine malfunctioning. Corrected magnesium actually less than 0.5. Likely contributing to persistent hypocalcemia. Continue IV magnesium replacement. Monitor repeat magnesium level. (3) IBS (irritable bowel syndrome) Current Visit: Yes Status: Acute Assessment and plan: hx IBS with chronic diarrhea. Patient reports increase in loose stools over the last week secondary to stress related to the loss of her father. Likely contributing to hypocalcemia. She does have history of C. difficile. No recent ATB use. Stool for C. difficile pending Qualifiers: Irritable bowel syndrome type: with diarrhea Qualified Code(s): K58.0 - Irritable bowel syndrome with diarrhea (4) CKD (chronic kidney disease) stage 3, GFR 30-59 ml/min Current Visit: Yes Status: Acute Assessment and plan: per hx. does not follow with nephrology. Cr stable around 1.2, GFR 50s. Cont IV fluids. Nephrology following (5) Diabetes mellitus, type 2 Current Visit: No Status: Chronic Assessment and plan: per hx. Appears diet controlled. 08/14/17 Hgb A1c 5.1%. Monitor blood sugar. No SSI as she has had severe hypoglycemia in the past. Qualifiers: Diabetes mellitus complication status: with unspecified complications Diabetes mellitus emt intermediate insulin use: without emt intermediate use Qualified Code( s): E11.8 - Type 2 diabetes mellitus with unspecified complications (6) Ventricular fibrillation Current Visit: No Status: Acute Assessment and plan: per hx. Has AICD. Cont amiodarone, BB. (7) DVT prophylaxis Current Visit: No Status: Acute Assessment and plan: heparin - Subjective Interval history: Seen and examined at bedside; she is complaining of abdominal cramps/spasms that are better than baseline. Still having loose stool which is at baseline per patient. She also reports a headache which she thinks is due to being sick and being in the hospital. Says headache is mild but not relieved with Tylenol. Discussed headache cocktail and she is agreeable. No blurred or double vision. No numbness or tingling or evidence of tetany. - Constitutional Vitals: Temp Pulse Resp BP Pulse Ox 98.5 F 69 15 116/72 93 08/21/17 07:30 08/21/17 07:30 08/21/17 07:30 08/21/17 07:30 08/21/17 08:26 General appearance: Present: A&O X 3 - Head Head exam: Present: atraumatic, normocephalic - Eye Eye exam: Present: PERRL, conjuntiva pink, sclera anicteric Pupils: Present: PERRL - Neck Neck exam general surgery: Present: supple, trachea midline. Absent: lymphadenopathy - Respiratory Respiratory exam: Present: CTAB. Absent: accessory muscle use, rales, rhonchi, wheezes - Cardiovascular Cardiovascular exam: Present: RRR, +S1, +S2. Absent: diastolic murmur, gallop, rubs, systolic murmur - GI/Abdominal GI/Abdominal exam: Present: normal bowel sounds, soft, no peritoneal signs. Absent: distended, tenderness - Extremities Exam Extremities exam: Present: warm, radial pulses palpable and symmetrical. Absent : calf tenderness, cyanotic, pedal edema - Neurological Exam Neurological exam: Present: CN II-XII intact, oriented X3, no focal deficits. Absent: pronater drift, facial droop, speech deficit - Skin Skin exam: Present: dry, intact Internal Medicine: Result - Labs CBC & Chem 7: 08/19/17 11:18 08/21/17 04:21 Labs: BMP 08/20/17 08/21/17 14:02 04:21 Sodium 144 Potassium 3.6 Chloride 111 H Carbon Dioxide 26 BUN 16 Creatinine 1.25 H Glucose 102 Calcium 6.7 L 6.3 L Liver Function 08/21/17 Range/Units 04:21 Total Bilirubin 0.3 (0.3-1.0) mg/dL AST 13 (13-39) Units/L ALT 9 (7-52) Units/L Alkaline Phosphatase 74 (34-104) Units/L Albumin 2.8 L (3.5-5.7) g/dL - ABG Interpretation ABG results: PT/INR, D-dimer PT 18.1 Seconds (9.4-12.1) H 08/19/17 11:18 Consult Discharge Plan - Plan Referrals: Sloane Murphy DO [Primary Care Provider] -
--- NOTE | 2017-08-21 10:13 | Electrocardiograph Report ---
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
--- NOTE | 2017-08-21 11:04 | Nephrology Progress Note ---
Date of Encounter: 08/21/17 Time of Encounter: 11:05 - Assessment and Plan (1) Hypocalcemia Status: Acute Calcium noted at 6.3, a drop likely problematic till hypomagnesemia fully treated but can increase supplements to 1g tid in the meantime Will also increase vitamin D to 2000iu daily (2) DERREK (acute kidney injury) Status: Acute SCr slightly better at 1.25, GFR 43 (3) Hypermagnesemia Status: Deleted Agree with another dose of magnesium sulfate 2grams over 4hrs. Last magnesium level noted at 0.6 from <0.5 previously Will increase mag oxide to bid (4) Hypomagnesemia Status: Resolved Subjective Interval history: Pt seen and examined. After pt was seen yesterday, lab called to change all reported high magnesium levels from >8 to <0.5 due to error??? Magnesium was hence given yesterday with magnesium sulfate and mag oxide started. Objective - Vital Signs Vital signs: Vital Signs Temp Pulse Resp BP Pulse Ox 08/21/17 08:26 93 08/21/17 07:30 98.5 F 69 15 116/72 93 08/21/17 03:56 97.9 F 67 15 111/66 96 08/20/17 19:39 97.9 F 72 14 104/64 91 08/20/17 14:41 97.9 F 65 16 114/75 98 08/20/17 11:27 98.1 F 56 16 114/74 97 Intake and Output 08/20/17 08/21/17 08/21/17 23:59 07:59 15:59 Intake Total 1410 / 1410 1354 / 1354 251 / 251 Output Total 325 / 325 0 / 0 Balance 1085 / 1085 1354 / 1354 251 / 251 Intake: IV Fluids 1050 / 1050 1354 / 1354 251 / 251 0.9 % Sodium Chloride 1,000 ML 1000 / 1000 1354 / 1354 131 / 131 @ 100 mls/hr IVC .Q10H [facility] Rx#: [id number] Calcium Gluconate 2,000 MG In 0 120 / 120 .9 % Sodium Chloride 100 ML @ 240 mls/hr IVPB ONCE ONE Rx#: [id number] Magnesium Sulfate Premix 2gm/ 50 / 50 50mL 2 gm In 50 ml @ 12.5 mls/ hr IVPB ONCE ONE Rx#:[id number] Oral 360 / 360 0 / 0 Output: Urine 325 / 325 0 / 0 Other: Meal Dinner Percent of Meal Consumed 100% Stool Size Moderate Stool Consistency soft Stool Characteristics [place] Stool Color Jose Maria Colored # Voids 1 1 # Bowel Movements 1 Blood Glucose* 104 125 - General Appearance General appearance: Present: well-developed, well-nourished EENT: Present: ATNC, mucous membranes moist Neck: Present: no JVD, supple Respiratory: Present: clear Cardiology: Present: no edema, normal S1, normal S2 Gastrointestinal: Present: no tenderness, no guarding Integumentary: Present: warm and dry Neurologic: Present: no focal deficit Musculoskeletal: Present: no deformities Psychiatric: Present: mood/affect appropriate - Lab 08/24/17 06:26 08/25/17 05:12 Most recent lab results Calcium 6.3 mg/dL (8.6-10.3) L 08/21/17 04:21 Phosphorus 5.3 mg/dL (2.7-4.5) H 08/20/17 08:23 Magnesium 0.6 mg/dL (1.6-2.6) L 08/21/17 04:21 Urine Creatinine 32 mg/dL 08/20/17 19:40 Urine Sodium 141.4 mEq/L 08/20/17 19:40 Consult Discharge Plan - Plan Referrals: Angelita Floyd CNP [Partnered Physician] - 08/27/17 2:00 pm Kasia Bunn MD [Partnered Physician] - 09/23/17 11:00 am Prescriptions: Cholecalciferol (D-3) [Vitamin D] 2,000 unit PO DAILY #30 tablet Magnesium Oxide [Mag-Ox] 400 mg PO BID #60 tablet
[2017-08-21 14:49] LABS: Calcium 6.6 mg/dL (8.6-10.3); Magnesium 1.2 mg/dL (1.6-2.6)
[2017-08-22] MEDS: *HR* OxyCODONE Immed Rel 5 MG TABLET PO PRN ×4 (01:25→23:36)
[2017-08-22] MEDS: Acetaminophen 325 MG TABLET PO PRN ×3 (05:12→19:33)
[2017-08-22] MEDS: *HR* Heparin 5,000 UNIT/ML VIAL SQ SCH ×2 (05:12→17:39)
[2017-08-22 07:00] LABS: BUN/Creatinine Ratio 20 (6-26); Blood Urea Nitrogen 19 mg/dL (8-23); Calcium 6.3 mg/dL (8.6-10.3); Carbon Dioxide 22 mEq/L (23-29); Chloride 108 mEq/L (98-107); Glucose 124 mg/dL (70-105); Magnesium 0.9 mg/dL (1.6-2.6); Osmolality,Calculated 296 (280-300); Potassium 3.2 mEq/L (3.5-5.1); Sodium 141 mEq/L (136-145); eGFR For African Americans > 60 (> 60); eGFR For Non-African Americans > 60 (> 60)
[2017-08-22] MEDS: Aspirin 81 MG TAB.CHEW PO SCH (07:50)
[2017-08-22] MEDS: Multivit/Ca/Min/Fe/FA 1 TAB TABLET PO SCH (07:52)
[2017-08-22] MEDS: Magnesium Oxide 400 MG TABLET PO SCH ×2 (07:52→20:51)
[2017-08-22] MEDS: *HR* Amiodarone 200 MG TABLET PO SCH (07:52)
[2017-08-22] MEDS: Furosemide 40 MG TABLET PO SCH (07:52)
[2017-08-22] MEDS: Cholecalciferol (D-3) 1,000 UNIT TABLET PO SCH (07:53)
[2017-08-22] MEDS ORDERED: Calcium Gluconate 2,000 MG in 0.9 % Sodium Chloride 100 ML IVPB STA (09:24)
--- NOTE | 2017-08-22 11:02 | Nephrology Progress Note ---
Date of Encounter: 08/22/17 Time of Encounter: 11:15 - Assessment and Plan (1) Hypocalcemia Status: Acute Calcium noted at 6.6, improving but complete improvement likely problematic till hypomagnesemia fully treated. Will continue calcium supplements at 1g tid Continue vitamin D 2000iu daily (2) DERREK (acute kidney injury) Status: Acute SCr normalized at 0.93, GFR >60 (3) Hypomagnesemia Status: Resolved Magnesium improving at 1.4, will continue iv magnesium sulfate 2grams over 4hrs in addition to po magoxide bid Subjective Interval history: Pt seen and examined with no new complaints. Objective - Vital Signs Vital signs: Vital Signs Temp Pulse Resp BP Pulse Ox 08/22/17 08:18 96 08/22/17 07:30 98.5 F 75 14 114/66 96 08/22/17 03:54 97.7 F 74 14 120/81 96 08/21/17 23:42 98.2 F 76 14 107/71 97 08/21/17 21:11 98.3 F 77 14 134/87 97 08/21/17 16:37 98.1 F 74 14 128/82 93 08/21/17 12:01 97.6 F 69 15 108/65 95 Intake and Output 08/21/17 08/22/17 08/22/17 23:59 07:59 15:59 Intake Total 200 / 200 1300 / 1300 600 / 600 Output Total 600 / 600 0 / 0 Balance -400 / -400 1300 / 1300 600 / 600 Intake: IV Fluids 1200 / 1200 120 / 120 0.45% Sodium Chloride 1000 Ml 1200 / 1200 1000 Ml 1,000 ML @ 75 mls/hr IVC .[id number] [facility] Rx#:[id number] Calcium Gluconate 2,000 MG In 0 120 / 120 .9 % Sodium Chloride 100 ML @ 220 mls/hr IVPB ONCE STA Rx#: [id number] Oral 200 / 200 100 / 100 480 / 480 Output: Urine 600 / 600 0 / 0 Other: Meal Dinner Breakfast Percent of Meal Consumed 75% 70% Stool Size Large Stool Consistency soft Stool Characteristics Normal for Patient Stool Color Yellow Jose Maria Colored # Voids 1 0 # Bowel Movements 1 # Bowel Movement Diapers 1 Weight 64.88 kg Blood Glucose* 130 106 Patient Weight 08/22/17 23:59 Weight 64.88 kg - General Appearance General appearance: Present: well-developed, well-nourished EENT: Present: ATNC, mucous membranes moist Neck: Present: no JVD, supple Respiratory: Present: clear Cardiology: Present: no edema, normal S1, normal S2 Gastrointestinal: Present: no tenderness, no guarding Integumentary: Present: warm and dry Neurologic: Present: no focal deficit Musculoskeletal: Present: no deformities Psychiatric: Present: mood/affect appropriate - Lab 08/24/17 06:26 08/25/17 05:12 Most recent lab results Calcium 6.3 mg/dL (8.6-10.3) L 08/22/17 06:09 Phosphorus 5.3 mg/dL (2.7-4.5) H 08/20/17 08:23 Magnesium 0.9 mg/dL (1.6-2.6) L 08/22/17 06:09 Urine Creatinine 32 mg/dL 08/20/17 19:40 Urine Sodium 141.4 mEq/L 08/20/17 19:40 Consult Discharge Plan - Plan Referrals: Angelita Floyd CNP [Partnered Physician] - 08/27/17 2:00 pm Kasia Bunn MD [Partnered Physician] - 09/23/17 11:00 am Prescriptions: Cholecalciferol (D-3) [Vitamin D] 2,000 unit PO DAILY #30 tablet Magnesium Oxide [Mag-Ox] 400 mg PO BID #60 tablet
--- NOTE | 2017-08-22 15:00 | Internal Med Progress Note ---
Date of Encounter: 08/22/17 Time of Encounter: 08:00 - Assessment and plan (1) Hypocalcemia Current Visit: Yes Status: Acute Assessment and plan: had outpatient labs drawn per PCP. Was called on 08/19/17 and advised to go to ER for low calcium. Ca 5.1 on arrival. Mg level initially reported as greater than 8. Of note, it was reported on 08/20/17 the initial magnesium reading of greater than 8 was lab error due to malfunctioning machine. Corrected magnesium was less than 0.5. Per chart review, has been hypocalcemic in the past. Asymptomatic, no tetany. No prolonged QT. Suspect multifactorial with history IBS and chronic loose stools, low magnesium and possibly see CKD contributing. Received multiple doses IV calcium gluconate on arrival. Continue IV calcium/magnesium replacement, 1/2 normal saline. Nephrology following (2) Hypomagnesemia Current Visit: No Status: Acute Assessment and plan: Magnesium initially reported as greater than 8 on arrival however she was later found to be in air secondary to lab machine malfunctioning. Corrected magnesium actually less than 0.5. Likely contributing to persistent hypocalcemia. Continue IV magnesium replacement. Monitor repeat magnesium level. (3) IBS (irritable bowel syndrome) Current Visit: Yes Status: Acute Assessment and plan: hx IBS with chronic diarrhea. Patient reports increase in loose stools over the last week secondary to stress related to the loss of her father. Likely contributing to hypocalcemia. She does have history of C. difficile. No recent ATB use. Stool sent for C. difficile however specimen was formed therefore rejected per lab. Qualifiers: Irritable bowel syndrome type: with diarrhea Qualified Code(s): K58.0 - Irritable bowel syndrome with diarrhea (4) CKD (chronic kidney disease) stage 3, GFR 30-59 ml/min Current Visit: Yes Status: Acute Assessment and plan: per hx. does not follow with nephrology. Cr normalized with fluids. Cont IV fluids. Nephrology following (5) Diabetes mellitus, type 2 Current Visit: No Status: Chronic Assessment and plan: per hx. Appears diet controlled. 08/14/17 Hgb A1c 5.1%. Monitor blood sugar. No SSI as she has had severe hypoglycemia in the past. Qualifiers: Diabetes mellitus complication status: with unspecified complications Diabetes mellitus rat exterminator insulin use: without rat exterminator use Qualified Code( s): E11.8 - Type 2 diabetes mellitus with unspecified complications (6) Ventricular fibrillation Current Visit: No Status: Acute Assessment and plan: per hx. Has AICD. Cont amiodarone, BB. (7) DVT prophylaxis Current Visit: No Status: Acute Assessment and plan: heparin - Subjective Interval history: Seen and examined at bedside; says she had an uneventful night, did not sleep well due to her arthritis acting up and her left shoulder. Remains asymptomatic , denies paresthesias, tetany, reflexes present. - Constitutional Vitals: Temp Pulse Resp BP Pulse Ox 98 F 75 15 118/65 97 08/22/17 11:03 08/22/17 11:03 08/22/17 11:03 08/22/17 11:03 08/22/17 11:03 General appearance: Present: A&O X 3, no acute distress - Head Head exam: Present: atraumatic, normocephalic - Eye Eye exam: Present: PERRL, conjuntiva pink, sclera anicteric Pupils: Present: PERRL - Neck Neck exam general surgery: Present: supple, trachea midline. Absent: lymphadenopathy - Respiratory Respiratory exam: Present: CTAB. Absent: accessory muscle use, rales, rhonchi, wheezes - Cardiovascular Cardiovascular exam: Present: RRR, +S1, +S2. Absent: diastolic murmur, gallop, rubs, systolic murmur - GI/Abdominal GI/Abdominal exam: Present: normal bowel sounds, soft, no peritoneal signs. Absent: distended, tenderness - Extremities Exam Extremities exam: Present: warm, radial pulses palpable and symmetrical. Absent : calf tenderness, cyanotic, pedal edema - Neurological Exam Neurological exam: Present: CN II-XII intact, oriented X3, no focal deficits. Absent: pronater drift, facial droop, speech deficit - Skin Skin exam: Present: dry, intact Internal Medicine: Result - Labs CBC & Chem 7: 08/19/17 11:18 08/22/17 06:09 Labs: BMP 08/22/17 06:09 Sodium 141 Potassium 3.2 L Chloride 108 H Carbon Dioxide 22 L BUN 19 Creatinine 0.93 Glucose 124 H Calcium 6.3 L - ABG Interpretation ABG results: PT/INR, D-dimer PT 18.1 Seconds (9.4-12.1) H 08/19/17 11:18 Consult Discharge Plan - Plan Referrals: Sloane Murphy, [Primary Care Provider] -
[2017-08-22 16:15] LABS: Calcium 6.8 mg/dL (8.6-10.3); Magnesium 1.4 mg/dL (1.6-2.6)
[2017-08-22 19:56] LABS: Urine Collection Duration RANDOM hr; Urine Collection Volume RANDOM mL
[2017-08-23] MEDS: Acetaminophen 325 MG TABLET PO PRN ×4 (02:04→21:41)
[2017-08-23] MEDS: *HR* Heparin 5,000 UNIT/ML VIAL SQ SCH ×2 (05:02→19:01)
[2017-08-23 06:03] LABS: BUN/Creatinine Ratio 25 (6-26); Blood Urea Nitrogen 20 mg/dL (8-23); Calcium 6.8 mg/dL (8.6-10.3); Carbon Dioxide 25 mEq/L (23-29); Chloride 107 mEq/L (98-107); Glucose 148 mg/dL (70-105); Magnesium 1.2 mg/dL (1.6-2.6); Osmolality,Calculated 291 (280-300); Potassium 3.9 mEq/L (3.5-5.1); Sodium 138 mEq/L (136-145); eGFR For African Americans > 60 (> 60); eGFR For Non-African Americans > 60 (> 60)
[2017-08-23] MEDS: *HR* OxyCODONE Immed Rel 5 MG TABLET PO PRN ×3 (06:25→23:26)
[2017-08-23 08:02] LABS: Urine Magnesium mg/dL <1.4 mg/dL
[2017-08-23] MEDS ORDERED: Calcium Gluconate 2,000 MG in D5% in Water 100 ML IVPB ONE (08:40)
[2017-08-23 08:57] LABS: Hematocrit 34.5 % (35.3-44.9); Hemoglobin 10.8 g/dL (11.5-15.4); Mean Corpuscular HGB Conc 31.3 g/dL (31.6-35.5); Mean Corpuscular Hemoglobin 28.7 pg (28.0-33.3); Mean Corpuscular Volume 91.8 fL (83.0-100.0); Mean Platelet Volume 10.8 fL (9.4-12.4); Platelet Count 287 K/mcL (140-400); Red Blood Count 3.76 M/mcL (3.82-4.97); Red Cell Distribution Width 14.4 % (11.5-14.5)
[2017-08-23] MEDS ORDERED: Calcium Gluconate 2,000 MG in 0.9 % Sodium Chloride 100 ML IVPB ONE (09:15)
[2017-08-23 09:16] LABS: VBG Ionized Calcium 0.85 mmol/L (1.15-1.35)
[2017-08-23] MEDS: Aspirin 81 MG TAB.CHEW PO SCH (09:21)
[2017-08-23] MEDS: Magnesium Oxide 400 MG TABLET PO SCH ×2 (09:22→21:41)
[2017-08-23] MEDS: Multivit/Ca/Min/Fe/FA 1 TAB TABLET PO SCH (09:22)
[2017-08-23] MEDS: Cholecalciferol (D-3) 1,000 UNIT TABLET PO SCH (09:22)
[2017-08-23] MEDS: Furosemide 40 MG TABLET PO SCH (09:22)
[2017-08-23] MEDS: *HR* Amiodarone 200 MG TABLET PO SCH (09:22)
--- NOTE | 2017-08-23 11:48 | Internal Med Progress Note ---
Date of Encounter: 08/23/17 Time of Encounter: 08:30 - Assessment and plan (1) Hypocalcemia Current Visit: Yes Status: Acute Assessment and plan: had outpatient labs drawn per PCP. Was called on 08/19/17 and advised to go to ER for low calcium. Ca 5.1 on arrival. Mg level initially reported as greater than 8. Of note, it was reported on 08/20/17 the initial magnesium reading of greater than 8 was lab error due to malfunctioning machine. Corrected magnesium was less than 0.5. Per chart review, has been hypocalcemic in the past. Asymptomatic, no tetany. No prolonged QT. Suspect multifactorial with history IBS and chronic loose stools, low magnesium and possibly see CKD contributing. Received multiple doses IV calcium gluconate on arrival. Continue IV calcium/magnesium replacement, 1/2 normal saline. Nephrology following. Slowly improving on 08/23 (2) Hypomagnesemia Current Visit: No Status: Acute Assessment and plan: Magnesium initially reported as greater than 8 on arrival however she was later found to be in air secondary to lab machine malfunctioning. Corrected magnesium actually less than 0.5. Likely contributing to persistent hypocalcemia. Continue IV magnesium replacement. Monitor repeat magnesium level. (3) Leukocytosis Current Visit: No Status: Acute Assessment and plan: WBC 12.8K (previously normal). Lactic acid normal. Concerned for possible infectious source near AICD as area erythematous, warm and tender to the touch. Repeat CXR, left chest US pending Qualifiers: Leukocytosis type: other Qualified Code(s): D72.828 - Other elevated white blood cell count (4) IBS (irritable bowel syndrome) Current Visit: Yes Status: Acute Assessment and plan: hx IBS with chronic diarrhea. Patient reports increase in loose stools over the last week secondary to stress related to the loss of her father. Likely contributing to hypocalcemia. She does have history of C. difficile. No recent ATB use. Stool sent for C. difficile however specimen was formed therefore rejected per lab. Qualifiers: Irritable bowel syndrome type: with diarrhea Qualified Code(s): K58.0 - Irritable bowel syndrome with diarrhea (5) CKD (chronic kidney disease) stage 3, GFR 30-59 ml/min Current Visit: Yes Status: Acute Assessment and plan: per hx. does not follow with nephrology. Cr normalized with fluids. Cont IV fluids. Nephrology following (6) Diabetes mellitus, type 2 Current Visit: No Status: Chronic Assessment and plan: per hx. Appears diet controlled. 08/14/17 Hgb A1c 5.1%. Monitor blood sugar. No SSI as she has had severe hypoglycemia in the past. Qualifiers: Diabetes mellitus complication status: with unspecified complications Diabetes mellitus joint terminal attack controller insulin use: without mcc use Qualified Code( s): E11.8 - Type 2 diabetes mellitus with unspecified complications (7) Ventricular fibrillation Current Visit: No Status: Acute Assessment and plan: per hx. Has AICD. Cont amiodarone, BB. (8) DVT prophylaxis Current Visit: No Status: Acute Assessment and plan: heparin - Subjective Interval history: Seen and examined at bedside; says she didn't sleep well last night. C/o of anterior chest pain AICD site. She noticed a small raised area yesterday, area is warm and tender to touch. No fevers or chills. - Constitutional Vitals: Temp Pulse Resp BP Pulse Ox 97.9 F 67 16 121/76 92 08/23/17 11:15 08/23/17 11:15 08/23/17 11:15 08/23/17 11:15 08/23/17 11:15 General appearance: Present: A&O X 3, no acute distress - Head Head exam: Present: atraumatic, normocephalic - Eye Eye exam: Present: PERRL, conjuntiva pink, sclera anicteric Pupils: Present: PERRL - Neck Neck exam general surgery: Present: supple, trachea midline. Absent: lymphadenopathy - Respiratory Respiratory exam: Present: CTAB. Absent: accessory muscle use, rales, rhonchi, wheezes - Cardiovascular Cardiovascular exam: Present: RRR, +S1, +S2. Absent: diastolic murmur, gallop, rubs, systolic murmur - GI/Abdominal GI/Abdominal exam: Present: normal bowel sounds, soft, no peritoneal signs. Absent: distended, tenderness - Extremities Exam Extremities exam: Present: warm, radial pulses palpable and symmetrical. Absent : calf tenderness, cyanotic, pedal edema - Neurological Exam Neurological exam: Present: CN II-XII intact, oriented X3, no focal deficits. Absent: pronater drift, facial droop, speech deficit - Skin Skin exam: Present: dry, intact Internal Medicine: Result - Labs CBC & Chem 7: 08/23/17 08:51 08/23/17 05:15 Labs: Short CBC 08/23/17 Range/Units 08:51 WBC 12.8 H (4.3-11.1) K/mcL Hgb 10.8 L (11.5-15.4) g/dL Hct 34.5 L (35.3-44.9) % Plt Count 287 (140-400) K/mcL BMP 08/22/17 08/23/17 15:46 05:15 Sodium 138 Potassium 3.9 Chloride 107 Carbon Dioxide 25 BUN 20 Creatinine 0.81 Glucose 148 H Calcium 6.8 L 6.8 L - ABG Interpretation ABG results: PT/INR, D-dimer PT 18.1 Seconds (9.4-12.1) H 08/19/17 11:18 Consult Discharge Plan - Plan Referrals: Sloane Murphy, [Primary Care Provider] -
[2017-08-23 14:20] LABS: Calcium 7.4 mg/dL (8.6-10.3); Magnesium 1.7 mg/dL (1.6-2.6)
--- NOTE | 2017-08-23 17:49 | Nephrology Progress Note ---
Date of Encounter: 08/23/17 Time of Encounter: 12:30 - Assessment and Plan (1) Hypocalcemia Current Visit: Yes Status: Acute Calcium noted slightly improved at 6.8, likely problematic till hypomagnesemia fully treated. Continue supplements to 1g tid Continue vitamin D to 2000iu daily (2) DERREK (acute kidney injury) Current Visit: Yes Status: Acute SCr normalized with fluids (3) Hypomagnesemia Current Visit: No Status: Acute Still improving currently at 1.2, deficit likely great due to chronic diarrhea. Continue daily iv mag sulfate ran slowly in addition to mg oxide Subjective Interval history: Pt seen and examined with complaints of tnderness around left clavicle with cxr pending. Objective - Vital Signs Vital signs: Vital Signs Temp Pulse Resp BP Pulse Ox 08/23/17 16:10 98.2 F 75 14 121/77 93 08/23/17 11:15 97.9 F 67 16 121/76 92 08/23/17 08:57 94 08/23/17 06:41 97.6 F 70 16 134/83 94 08/23/17 04:21 98.2 F 73 14 126/77 91 08/22/17 20:46 98.4 F 79 14 121/70 92 Intake and Output 08/23/17 08/23/17 08/23/17 07:59 15:59 23:59 Intake Total 0 / 0 1480 / 1480 Output Total 0 / 0 400 / 400 Balance 0 / 0 1480 / 1480 -400 / -400 Intake: IV Fluids 1120 / 1120 0.45% Sodium Chloride 1000 Ml 1000 / 1000 1000 Ml 1,000 ML @ 75 mls/hr IVC .[id number] [facility] Rx#:[id number] Calcium Gluconate 2,000 MG In 0 120 / 120 .9 % Sodium Chloride 100 ML @ 220 mls/hr IVPB ONCE ONE Rx#: [id number] Oral 0 / 0 360 / 360 Output: Urine 0 / 0 400 / 400 Other: Meal Lunch Percent of Meal Consumed 100% Stool Size Copious Stool Consistency formed Stool Color Brown # Voids 1 Weight 64.5 kg Blood Glucose* 131 130 156 Patient Weight 08/23/17 23:59 Weight 64.5 kg - General Appearance General appearance: Present: well-developed, well-nourished EENT: Present: ATNC, mucous membranes moist Neck: Present: no JVD, supple Respiratory: Present: clear Cardiology: Present: no edema, normal S1, normal S2 Gastrointestinal: Present: no tenderness, no guarding Neurologic: Present: no focal deficit Musculoskeletal: Present: no deformities Psychiatric: Present: mood/affect appropriate, cooperative - Lab 08/23/17 08:51 08/23/17 05:15 Most recent lab results Calcium 7.4 mg/dL (8.6-10.3) L 08/23/17 13:59 Phosphorus 5.3 mg/dL (2.7-4.5) H 08/20/17 08:23 Magnesium 1.7 mg/dL (1.6-2.6) 08/23/17 13:59 Urine Creatinine 32 mg/dL 08/20/17 19:40 Urine Sodium 141.4 mEq/L 08/20/17 19:40 Consult Discharge Plan - Plan Referrals: Sloane Murphy DO [Primary Care Provider] -
[2017-08-23] MEDS: ceFAZolin 1,000 MG in Water for inj. (sterile) 10 ML IVP SCH ×2 (19:01→23:27)
[2017-08-24] MEDS: Acetaminophen 325 MG TABLET PO PRN (03:42)
[2017-08-24] MEDS: *HR* Heparin 5,000 UNIT/ML VIAL SQ SCH ×2 (05:02→18:30)
[2017-08-24 06:37] LABS: Hematocrit 31.8 % (35.3-44.9); Mean Corpuscular HGB Conc 31.4 g/dL (31.6-35.5); Mean Corpuscular Hemoglobin 28.9 pg (28.0-33.3); Mean Corpuscular Volume 91.9 fL (83.0-100.0); Mean Platelet Volume 10.5 fL (9.4-12.4); Platelet Count 289 K/mcL (140-400); Red Blood Count 3.46 M/mcL (3.82-4.97); Red Cell Distribution Width 14.6 % (11.5-14.5)
[2017-08-24 06:55] LABS: BUN/Creatinine Ratio 26 (6-26); Blood Urea Nitrogen 18 mg/dL (8-23); Calcium 6.9 mg/dL (8.6-10.3); Carbon Dioxide 24 mEq/L (23-29); Chloride 107 mEq/L (98-107); Glucose 110 mg/dL (70-105); Magnesium 1.3 mg/dL (1.6-2.6); Osmolality,Calculated 291 (280-300); Potassium 3.3 mEq/L (3.5-5.1); Sodium 139 mEq/L (136-145); eGFR For African Americans > 60 (> 60); eGFR For Non-African Americans > 60 (> 60)
[2017-08-24] MEDS: Furosemide 40 MG TABLET PO SCH (09:27)
[2017-08-24] MEDS: Cholecalciferol (D-3) 1,000 UNIT TABLET PO SCH (09:27)
[2017-08-24] MEDS: Multivit/Ca/Min/Fe/FA 1 TAB TABLET PO SCH (09:27)
[2017-08-24] MEDS: Aspirin 81 MG TAB.CHEW PO SCH (09:27)
[2017-08-24] MEDS: *HR* Amiodarone 200 MG TABLET PO SCH (09:28)
[2017-08-24] MEDS: ceFAZolin 1,000 MG in Water for inj. (sterile) 10 ML IVP SCH ×2 (09:28→16:02)
[2017-08-24] MEDS: Magnesium Oxide 400 MG TABLET PO SCH ×2 (09:28→20:31)
[2017-08-24] MEDS: *HR* OxyCODONE Immed Rel 5 MG TABLET PO PRN ×3 (09:38→23:10)
--- NOTE | 2017-08-24 13:02 | Nephrology Progress Note ---
<Marion Huerta Lisa - Last Filed: 08/24/17 13:03> Date of Encounter: 08/24/17 Time of Encounter: 12:53 - Assessment and Plan (1) Hypomagnesemia Status: Acute Mg back down to 1.3 Will give Mg 4 gm slowly over 8 hours x 1 Stop Lasix (2) Hypocalcemia Status: Acute Ca+ 6.9 Continue Vit D Subjective Principal diagnosis: hypocalcemia, DREREK Interval history: Patient seen and examined. No complaints today Objective - Vital Signs Vital signs: Vital Signs Temp Pulse Resp BP Pulse Ox 08/24/17 10:24 97.5 F L 80 16 117/75 93 08/24/17 07:50 97.6 F 73 16 115/75 93 08/24/17 05:15 98.0 F 69 14 124/75 93 08/24/17 00:35 98.7 F 79 14 127/75 93 08/23/17 21:46 93 08/23/17 21:38 98.1 F 78 14 128/74 93 08/23/17 16:10 98.2 F 75 14 121/77 93 Intake and Output 08/23/17 08/24/17 08/24/17 23:59 07:59 15:59 Intake Total 130 / 130 1010 / 1010 840 / 840 Output Total 400 / 400 0 / 0 0 / 0 Balance -270 / -270 1010 / 1010 840 / 840 Intake: IV Fluids 1010 / 1010 480 / 480 0.45% Sodium Chloride 1000 Ml 1000 / 1000 470 / 470 1000 Ml 1,000 ML @ 75 mls/hr IVC .[id number] [facility] Rx#:[id number] Ancef 1,000 MG In Water for inj . (sterile) 10 ML @ 200 mls/hr IVP Q8HR [facility] Rx#:[id number] Oral 120 / 120 0 / 0 360 / 360 Output: Urine 400 / 400 0 / 0 0 / 0 Other: Meal Dinner Breakfast Percent of Meal Consumed 25% 100% Stool Size Large Stool Consistency soft formed Stool Color Pale # Voids 1 1 1 # Bowel Movements 1 0 0 Weight 64.41 kg Blood Glucose* 133 97 174 Patient Weight 08/24/17 23:59 Weight 64.41 kg - General Appearance General appearance: Present: well-developed, well-nourished EENT: Present: ATNC, mucous membranes moist, hearing intact, vision intact Neck: Present: supple Respiratory: Present: clear Cardiology: Present: no edema, normal S1, normal S2 Gastrointestinal: Present: no tenderness, no guarding Integumentary: Present: warm and dry Neurologic: Present: alert and oriented x3 Psychiatric: Present: mood/affect appropriate, cooperative - Lab 08/24/17 06:26 08/24/17 06:26 Most recent lab results Calcium 6.9 mg/dL (8.6-10.3) L 08/24/17 06:26 Phosphorus 5.3 mg/dL (2.7-4.5) H 08/20/17 08:23 Magnesium 1.3 mg/dL (1.6-2.6) L 08/24/17 06:26 Urine Creatinine 32 mg/dL 08/20/17 19:40 Urine Sodium 141.4 mEq/L 08/20/17 19:40 Consult Discharge Plan - Plan Referrals: Angelita Floyd CNP [Partnered Physician] - 08/27/17 2:00 pm Kasia Bunn MD [Partnered Physician] - 09/23/17 11:00 am Prescriptions: Cholecalciferol (D-3) [Vitamin D] 2,000 unit PO DAILY #30 tablet Magnesium Oxide [Mag-Ox] 400 mg PO BID #60 tablet <Kasia Bunn - Last Filed: 09/21/17 23:15> Date of Encounter: 08/24/17 - Assessment and Plan (1) Hypocalcemia Status: Acute (2) DERREK (acute kidney injury) Status: Acute (3) Hypomagnesemia Status: Resolved Objective - Lab 08/24/17 06:26 08/25/17 05:12 Most recent lab results Calcium 8.0 mg/dL (8.6-10.3) L 08/25/17 05:12 Phosphorus 5.3 mg/dL (2.7-4.5) H 08/20/17 08:23 Magnesium 1.6 mg/dL (1.6-2.6) 08/25/17 05:12 Urine Creatinine 32 mg/dL 08/20/17 19:40 Urine Sodium 141.4 mEq/L 08/20/17 19:40 - Attending Attestation I examined this patient and my medical decision-making was reviewed with the Resident Physician/[facility] [employer]. I agree with the documented findings, disposition and treatment plan as described except to the extent set forth below. Pt seen and examined with no new compalints. Magnesium remains low at 1.3, will replete with 4 gram mag sulfate ovr 8 hrs today. Will stop laisx. calcium noted at 6.9, improving but still low, continue supplements and vitamin d. SCr normalized. Potassium stable but low at 3.3, replete. Exam unremarkable.
[2017-08-24] MEDS ORDERED: Calcium Gluconate 2,000 MG in 0.9 % Sodium Chloride 50 ML IVPB ONE (17:19)
--- NOTE | 2017-08-24 17:25 | Internal Med Progress Note ---
Date of Encounter: 08/24/17 Time of Encounter: 09:30 - Assessment and plan (1) Hypocalcemia Current Visit: Yes Status: Acute Assessment and plan: had outpatient labs drawn per PCP. Was called on 08/19/17 and advised to go to ER for low calcium. Ca 5.1 on arrival. Mg level initially reported as greater than 8. Of note, it was reported on 08/20/17 the initial magnesium reading of greater than 8 was lab error due to malfunctioning machine. Corrected magnesium was less than 0.5. Per chart review, has been hypocalcemic in the past. Asymptomatic, no tetany. No prolonged QT. Suspect multifactorial with history IBS and chronic loose stools, low magnesium and possibly see CKD contributing. Received multiple doses IV calcium gluconate on arrival. Continue IV calcium/magnesium replacement, 1/2 normal saline. Nephrology following. (2) Hypomagnesemia Current Visit: No Status: Acute Assessment and plan: Magnesium initially reported as greater than 8 on arrival however she was later found to be in air secondary to lab machine malfunctioning. Corrected magnesium actually less than 0.5. Likely contributing to persistent hypocalcemia. Continue IV magnesium replacement. Monitor repeat magnesium level. (3) Superficial vein thrombosis Current Visit: Yes Status: Acute Assessment and plan: to left chest. Chest ultrasound with findings suggestive of superficial venous thrombosis near left sternoclavicular joint. No previous history. Etiology unknown, possible Mullend[place]'s disease. Dramatic treatment with warm compress, topical analgesic. Left shoulder and left upper extremity Doppler pending. If DVT is identified then will need vascular consult (4) Leukocytosis Current Visit: No Status: Acute Assessment and plan: WBC 12.8K (previously normal). Lactic acid normal. No obvious infectious source. UA not and to give of UTI, CXR unremarkable. Afebrile. Possibly reactive hold on ATB Qualifiers: Leukocytosis type: other Qualified Code(s): D72.828 - Other elevated white blood cell count (5) IBS (irritable bowel syndrome) Current Visit: Yes Status: Acute Assessment and plan: hx IBS with chronic diarrhea. Patient reports increase in loose stools over the last week secondary to stress related to the loss of her father. Likely contributing to hypocalcemia. She does have history of C. difficile. No recent ATB use. Stool sent for C. difficile however specimen was formed therefore rejected per lab. No acute needs. Qualifiers: Irritable bowel syndrome type: with diarrhea Qualified Code(s): K58.0 - Irritable bowel syndrome with diarrhea (6) CKD (chronic kidney disease) stage 3, GFR 30-59 ml/min Current Visit: Yes Status: Acute Assessment and plan: per hx. does not follow with nephrology. Cr normalized with fluids. Cont IV fluids. Nephrology following (7) Diabetes mellitus, type 2 Current Visit: No Status: Chronic Assessment and plan: per hx. Appears diet controlled. 08/14/17 Hgb A1c 5.1%. Monitor blood sugar. No SSI as she has had severe hypoglycemia in the past. Qualifiers: Diabetes mellitus complication status: with unspecified complications Diabetes mellitus watermaster insulin use: without watermaster use Qualified Code( s): E11.8 - Type 2 diabetes mellitus with unspecified complications (8) Ventricular fibrillation Current Visit: No Status: Acute Assessment and plan: per hx. Has AICD. Cont amiodarone, BB. (9) DVT prophylaxis Current Visit: No Status: Acute Assessment and plan: heparin - Subjective Interval history: Seen and examined at bedside; no acute change in exam to report. Still with complaint of left shoulder pain, slightly worse from yesterday's exam. Still without tetany, clonus or pierced seizures. Discussed case with Dr. hernandez and will obtain left upper extremity Doppler. Treat area symptomatically for now. - Constitutional Vitals: Temp Pulse Resp BP Pulse Ox 99.1 F 81 16 119/72 93 08/24/17 14:47 08/24/17 14:47 08/24/17 14:47 08/24/17 14:47 08/24/17 14:47 General appearance: Present: A&O X 3, no acute distress - Head Head exam: Present: atraumatic, normocephalic - Eye Eye exam: Present: PERRL, conjuntiva pink, sclera anicteric Pupils: Present: PERRL - Neck Neck exam general surgery: Present: supple, trachea midline. Absent: lymphadenopathy - Respiratory Respiratory exam: Present: CTAB. Absent: accessory muscle use, rales, rhonchi, wheezes - Cardiovascular Cardiovascular exam: Present: RRR, +S1, +S2. Absent: diastolic murmur, gallop, rubs, systolic murmur - GI/Abdominal GI/Abdominal exam: Present: normal bowel sounds, soft, no peritoneal signs. Absent: distended, tenderness - Extremities Exam Extremities exam: Present: warm, radial pulses palpable and symmetrical. Absent : calf tenderness, cyanotic, pedal edema - Neurological Exam Neurological exam: Present: CN II-XII intact, oriented X3, no focal deficits. Absent: pronater drift, facial droop, speech deficit - Skin Skin exam: Present: dry, intact Internal Medicine: Result - Labs CBC & Chem 7: 08/24/17 06:26 08/24/17 06:26 Labs: Short CBC 08/24/17 Range/Units 06:26 WBC 12.4 H (4.3-11.1) K/mcL Hgb 10.0 L (11.5-15.4) g/dL Hct 31.8 L (35.3-44.9) % Plt Count 289 (140-400) K/mcL BMP 08/24/17 06:26 Sodium 139 Potassium 3.3 L Chloride 107 Carbon Dioxide 24 BUN 18 Creatinine 0.70 Glucose 110 H Calcium 6.9 L - ABG Interpretation ABG results: PT/INR, D-dimer PT 18.1 Seconds (9.4-12.1) H 08/19/17 11:18 - Impressions Impressions Chest X-Ray 08/23/17 12:02 IMPRESSION: Hypoaeration with left lower lobe atelectasis or developing infiltrate. D/ /23/2017 13:24:41 Michael Rossi MD / [facility] Interpreting Provider: Michael Rossi MD Chest Ultrasound 08/23/17 14:00 IMPRESSION: Findings suggestive of superficial venous thrombosis in area of concern near the left sternoclavicular joint. Recommend follow-up sonography to confirm resolution. D/ : / 08/23/2017 15:08:32 Franck Ponce MD / [facility] Interpreting Provider: Franck Ponce MD Consult Discharge Plan - Plan Referrals: Sloane Murphy DO [Primary Care Provider] -
[2017-08-24] MEDS ORDERED: Methyl Salicylate/Menthol 28 GM TUBE TP PRN (17:34)
[2017-08-25] MEDS: Acetaminophen 325 MG TABLET PO PRN (03:19)
[2017-08-25] MEDS: *HR* Heparin 5,000 UNIT/ML VIAL SQ SCH (05:52)
[2017-08-25 06:23] LABS: BUN/Creatinine Ratio 22 (6-26); Blood Urea Nitrogen 16 mg/dL (8-23); Carbon Dioxide 27 mEq/L (23-29); Chloride 105 mEq/L (98-107); Glucose 119 mg/dL (70-105); Magnesium 1.6 mg/dL (1.6-2.6); Osmolality,Calculated 290 (280-300); Potassium 4.1 mEq/L (3.5-5.1); Sodium 139 mEq/L (136-145); eGFR For African Americans > 60 (> 60); eGFR For Non-African Americans > 60 (> 60)
[2017-08-25] MEDS ORDERED: Calcium Gluconate 1,000 MG in D5% in Water 100 ML IVPB ONE (08:48)
[2017-08-25] MEDS ORDERED: Magnesium Sulfate 1 GM in D5% in Water 100 ML IVPB ONE (08:52)
--- NOTE | 2017-08-25 09:03 | Internal Med Progress Note ---
Date of Encounter: 08/25/17 Time of Encounter: 08:58 - Assessment and plan (1) Hypomagnesemia Current Visit: No Status: Acute Assessment and plan: On presentation magnesium initially reported as greater than 8 however this was found to be lab error corrected magnesium actually less than 0.5. Coinciding with persistent hypocalcemia. Today magnesium has improved up to 1.6 from 1.3 we will give 1 g IV magnesium and recheck. Continue with oral supplements cardiac monitoring (2) Hypocalcemia Current Visit: Yes Status: Acute Assessment and plan: Outpatient lab draw her PCP. Calcium level is low 5.1 as well as low magnesium is less than 0.5. Patient has history of hypocalcemia in the past. Presently asymptomatic with no tetany no prolonged QT. She has received multiple doses of IV calcium as well as oral. Today calcium is 8 we will continue with oral replacement and give 1 g of IV calcium. Nephrology is following. ( (3) IBS (irritable bowel syndrome) Current Visit: Yes Status: Acute Assessment and plan: Patient has history of irritable bowel syndrome, over the previous week she had several loose stools secondary to stress related to the loss of her father. She has had a past history of C. difficile however denies any recent antibiotic use. Stool for C Deshawn was sent but was rejected due to formed stool. Today she states stool has slowed some we will continue to monitor Qualifiers: Irritable bowel syndrome type: with diarrhea Qualified Code(s): K58.0 - Irritable bowel syndrome with diarrhea (4) Superficial vein thrombosis Current Visit: Yes Status: Acute Assessment and plan: Superficial vein thrombosis to left chest. Chest ultrasound findings suggestive of superficial venous thrombosis near left sternoclavicular joint. No previous history did not obtain Doppler to rule out DVT of left shoulder and left upper extremity which was negative. We will continue with supportive treatment warm compresses and topical analgesia ( (5) Diabetes Current Visit: No Status: Acute Assessment and plan: 1 this is per history ,presently glucose is controlled patient is diet- controlled diabetic. We will hold sliding-scale insulin due to history of hypoglycemia and past Qualifiers: Diabetes mellitus type: type 2 Diabetes mellitus complication status: with unspecified complications Diabetes mellitus intermediate project manager insulin use: with senior living use Qualified Code(s): E11.8 - Type 2 diabetes mellitus with unspecified complications; Z79.4 - intermediate project manager (current) use of insulin (6) CKD (chronic kidney disease) stage 3, GFR 30-59 ml/min Current Visit: Yes Status: Acute Assessment and plan: Per history patient does not follow with nephrology. Presently creatinine is stable we will continue to monitor Nephrology has been consulted and is following We will avoid nephrotoxins Monitor intake and output daily weights (7) Ventricular fibrillation Current Visit: No Status: Acute Assessment and plan: For history patient does have AICD placed. Continuous cardiac monitoring no arrhythmias noted (8) DVT prophylaxis Current Visit: No Status: Acute Assessment and plan: Heparin subcutaneous - Time Spent With Patient less than 15 minutes - Subjective Interval history: Patient continues to complain of left arm pain. There is no swelling or redness palpable pulses brisk cap refill. Venous Doppler flow preliminary results positive for superficial DVT. We will continue with report of care. Warm compresses we will order lidocaine patch. Lab work does reveal calcium slightly improving up to 8 we will give 1 g of calcium gluconate IV as well as magnesium 1.6 we will give 1 g magnesium IV. Continue with oral supplements. We will recheck calcium and magnesium Rest of lab work is unremarkable vital signs stable. - Constitutional Vitals: Temp Pulse Resp BP Pulse Ox 97.5 F L 76 16 133/83 96 08/25/17 07:09 08/25/17 07:09 08/25/17 07:09 08/25/17 07:09 08/25/17 07:09 General appearance: Present: A&O X 3, no acute distress - Head Head exam: Present: atraumatic, normocephalic - Eye Eye exam: Present: PERRL, conjuntiva pink, sclera anicteric Pupils: Present: PERRL - Neck Neck exam general surgery: Present: supple, trachea midline. Absent: lymphadenopathy - Respiratory Respiratory exam: Present: CTAB. Absent: accessory muscle use, rales, rhonchi, wheezes - Cardiovascular Cardiovascular exam: Present: RRR, +S1, +S2. Absent: diastolic murmur, gallop, rubs, systolic murmur - GI/Abdominal GI/Abdominal exam: Present: normal bowel sounds, soft, no peritoneal signs. Absent: distended, tenderness - Extremities Exam Extremities exam: Present: warm, radial pulses palpable and symmetrical. Absent : calf tenderness, cyanotic, pedal edema - Neurological Exam Neurological exam: Present: CN II-XII intact, oriented X3, no focal deficits. Absent: pronater drift, facial droop, speech deficit - Skin Skin exam: Present: dry, intact Internal Medicine: Result - Labs CBC & Chem 7: 08/24/17 06:26 08/25/17 05:12 Labs: BMP 08/25/17 05:12 Sodium 139 Potassium 4.1 Chloride 105 Carbon Dioxide 27 BUN 16 Creatinine 0.73 Glucose 119 H Calcium 8.0 L - ABG Interpretation ABG results: PT/INR, D-dimer PT 18.1 Seconds (9.4-12.1) H 08/19/17 11:18 - Impressions Impressions Chest Ultrasound 08/23/17 14:00 IMPRESSION: Findings suggestive of superficial venous thrombosis in area of concern near the left sternoclavicular joint. Recommend follow-up sonography to confirm resolution. D/ / 08/23/2017 15:08:32 Franck Ponce MD / [facility] Interpreting Provider: Franck Ponce MD Shoulder X-Ray 08/24/17 17:18 IMPRESSION: No acute fracture. No substantial change appearance of the left shoulder. D/ / Brenda Cruz MD / Brenda Cruz MD Interpreting Provider: Brenda Cruz MD Consult Discharge Plan - Plan Referrals: Sloane Murphy DO [Primary Care Provider] -
[2017-08-25] MEDS: *HR* Amiodarone 200 MG TABLET PO SCH (10:31)
[2017-08-25] MEDS: Magnesium Oxide 400 MG TABLET PO SCH (10:31)
[2017-08-25] MEDS: Multivit/Ca/Min/Fe/FA 1 TAB TABLET PO SCH (10:32)
[2017-08-25] MEDS: Cholecalciferol (D-3) 1,000 UNIT TABLET PO SCH (10:32)
[2017-08-25] MEDS: Aspirin 81 MG TAB.CHEW PO SCH (10:32)
[2017-08-25 14:58] VITALS: BP 117/63
--- NOTE | 2017-08-25 15:52 | Discharge Summary ---
Date of Encounter: 08/25/17 Time of Encounter: 15:50 - Discharge Diagnosis (1) Hypomagnesemia Priority: Primary Status: Acute Comments: 1 we will continue with oral supplements-patient will follow-up with nephrology and primary care physician (2) Hypocalcemia Priority: Primary Status: Acute Comments: 1 kidney with Tums 1000 by mouth 3 times a day-follow up with nephrology and PCP (3) IBS (irritable bowel syndrome) Priority: Secondary Status: Chronic Comments: Has continued to slow-diarrhea brought on by stress related to recent of father Qualifiers: Irritable bowel syndrome type: with diarrhea Qualified Code(s): K58.0 - Irritable bowel syndrome with diarrhea (4) Superficial vein thrombosis Priority: Primary Status: Acute Comments: 1 Superficial vein thrombosis to left chest. Chest ultrasound findings suggestive of superficial venous thrombosis near left sternoclavicular joint. No previous history did not obtain Doppler to rule out DVT of left shoulder and left upper extremity which was negative. 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 Patient will follow-up with Dr. Mir as an outpatient - Discharge Medications Prescriptions: Calcium Carbonate [Tums] 1,000 mg PO TID #90 tab.chew Cholecalciferol (D-3) [Vitamin D] 2,000 unit PO DAILY #30 tablet Magnesium Oxide [Mag-Ox] 400 mg PO BID #60 tablet Home Medications: Aspirin 81 mg PO DAILY 06/05/16 [History] Cholecalciferol (Vitamin D3) [Vitamin D3] 1,000 unit PO DAILY 06/05/16 [History] Metoprolol [Lopressor] 50 mg PO BID 06/05/16 [History] Multivitamin [Multivitamins] 1 cap PO DAILY 06/05/16 [History] Oxygen 2 l NS AD 06/05/16 [History] Amiodarone [Cordarone] 200 mg PO DAILY 06/27/16 [History] Potassium Chloride 20 meq PO DAILY tab.er.prt 07/06/16 [Rx] Calcium Carbonate [Calcium] 1,000 mg PO BID 04/28/17 [History] Ferrous Sulfate 325 mg PO DAILY 04/28/17 [History] Magnesium Chloride [Magnesium Dr] 128 mg PO TID 04/28/17 [History] Omeprazole [PriLOSEC] 20 mg PO DAILY 04/28/17 [History] Alosetron HCl 0.5 mg PO BID 08/19/17 [History] Baclofen [Lioresal] 10 mg PO TID 08/19/17 [History] Calcium Carbonate [Tums] 1,000 mg PO TID #90 tab.chew 08/25/17 [Rx] Cholecalciferol (D-3) [Vitamin D] 2,000 unit PO DAILY #30 tablet 08/25/17 [Rx] Magnesium Oxide [Mag-Ox] 400 mg PO BID #60 tablet 08/25/17 [Rx] Allergies/Adverse Reactions: 3 Allergy/AdvReac Type Severity Reaction Status Date / Time peanut Allergy Hives Verified 05/16/17 13:35 zinc Allergy Hives Verified 05/16/17 13:35 Sulfa (Sulfonamide AdvReac Mild constipatio Verified 05/16/17 13:35 Antibiotics) n Procedures/tests Complete & Pending: Procedures Performed prior 72 hours Category Date Time Status US chest [US] Stat Exams 08/23/17 14:00 Completed EV venous imaging UE LT Stat Y 08/24/17 18:26 Completed Date of admission: 08/20/17 08:00 Primary care physician: Maribel Fernandez Consults: 08/20/17 08:56 Consult to Nephrology [CONS] Routine Consulting Provider: Kidney Tonie/DIONTE/BASILIO/SHERRI Reason for Consult: CKD with hypocalcemia Call Completed: Yes Discharging clinician: Melisa Parish Anticipated date of discharge: 08/25/17 - Patient Status Disposition: Home, Self-Care Condition: Fair Overall status at discharge: patient is progressing back to baseline - Discharge Instructions Follow Up With: Angelita Floyd CNP [Partnered Physician] - 08/27/17 2:00 pm OriKasia webb MD [Partnered Physician] - 09/23/17 11:00 am - Diet and Activity Activity: increase activity as tolerated Diet: diabetic diet Hospital course: Ms. Hebert is a 67 year old female with history of atrial fibrillation now in the coagulation due to prior history of alveolar hemorrhage COPD oxygen dependent diabetes type 2 [id number] regular fibrillation with AICD placement,AICD irritable bowel syndrome. Patient has been experiencing several loose stools throughout the day history of irritable bowel has been experiencing stress due to recent of her father. She went to primary care physician was to find her magnesium level was high and her calcium levels with low initially magnesium read as an 8 and calcium was 5.1 however there was a lab error is actually magnesium was less than 0.05. Patient was given several IV infusions of calcium gluconate as well as magnesium. She also received oral supplements of vitamin D calcium and magnesium She was seen by nephrology due to an AK I her Lasix was held. Watch lites were continually monitored and she improved over the next few days. Presently her magnesium is up to 1.6 and calcium is at 8. She was seen by nephrology today who agreed patient was ready to be discharged and can follow-up with nephrology as an outpatient. Patient is hemodynamically stable at this time and is ready for discharged. Time spent discussing smoking cessation with patient: 3 to 10 minutes - Time Spent with Patient Total time spent providing and/or coordinating discharge services: - Constitutional Vitals: Temp Pulse Resp BP Pulse Ox 98.3 F 75 16 117/63 93 08/25/17 14:55 08/25/17 14:55 08/25/17 14:55 08/25/17 14:55 08/25/17 14:55 General appearance: Present: A&O X 3, no acute distress - Head Head exam: Present: atraumatic, normocephalic - Eye Eye exam: Present: PERRL, conjuntiva pink, sclera anicteric Pupils: Present: PERRL - Neck Neck exam general surgery: Present: supple, trachea midline. Absent: lymphadenopathy - Respiratory Respiratory exam: Present: CTAB. Absent: accessory muscle use, rales, rhonchi, wheezes - Cardiovascular Cardiovascular exam: Present: RRR, +S1, +S2. Absent: diastolic murmur, gallop, rubs, systolic murmur - GI/Abdominal GI/Abdominal exam: Present: normal bowel sounds, soft, no peritoneal signs. Absent: distended, tenderness - Extremities Exam Extremities exam: Present: tenderness, warm, radial pulses palpable and symmetrical. Absent: calf tenderness, cyanotic, pedal edema - Neurological Exam Neurological exam: Present: CN II-XII intact, oriented X3, no focal deficits. Absent: pronater drift, facial droop, speech deficit
--- NOTE | 2017-08-25 17:36 | Nephrology Progress Note ---
Date of Encounter: 08/25/17 Time of Encounter: 12:00 - Assessment and Plan (1) Hypocalcemia Current Visit: Yes Status: Acute Calcium noted improved at 8.0 with normalized magnesium. Continue supplements at 1g tid Continue vitamin D to 2000iu daily (2) DERREK (acute kidney injury) Current Visit: Yes Status: Acute SCr normalized with fluids Will continue to hold lasix for now (3) Hypomagnesemia Current Visit: No Status: Acute Normalized at 1.6, will continue mg oxide bid Ok to discharge from a renal standpoint Will need followup appt with me within 2-4 weeks of discharge and BMP with mag within a week Subjective Principal diagnosis: hypocalcemia, DERREK Interval history: Pt seen and examined with no new complaints Objective - Vital Signs Vital signs: Vital Signs Temp Pulse Resp BP Pulse Ox 08/25/17 14:55 98.3 F 75 16 117/63 93 08/25/17 11:57 97.9 F 73 16 122/74 93 08/25/17 07:09 97.5 F L 76 16 133/83 96 08/25/17 04:04 98.2 F 77 15 130/80 92 08/25/17 00:10 98.3 F 81 16 137/84 93 08/24/17 20:00 99.0 F 84 14 129/74 91 Intake and Output 08/25/17 08/25/17 08/25/17 07:59 15:59 23:59 Intake Total 120 / 120 720 / 720 Output Total 0 / 0 300 / 300 Balance 120 / 120 420 / 420 Intake: Oral 120 / 120 720 / 720 Output: Urine 0 / 0 300 / 300 Other: Meal Lunch Percent of Meal Consumed 100% # Voids 1 # Bowel Movements 0 0 Weight 64.365 kg Blood Glucose* 109 162 90 Patient Weight 08/25/17 23:59 Weight 64.365 kg - General Appearance General appearance: Present: well-developed, well-nourished EENT: Present: ATNC, mucous membranes moist Neck: Present: no JVD, supple Respiratory: Present: clear Cardiology: Present: no edema, normal S1, normal S2 Gastrointestinal: Present: no tenderness, no guarding Neurologic: Present: no focal deficit Psychiatric: Present: mood/affect appropriate - Lab 08/24/17 06:26 08/25/17 05:12 Most recent lab results Calcium 8.0 mg/dL (8.6-10.3) L 08/25/17 05:12 Phosphorus 5.3 mg/dL (2.7-4.5) H 08/20/17 08:23 Magnesium 1.6 mg/dL (1.6-2.6) 08/25/17 05:12 Urine Creatinine 32 mg/dL 08/20/17 19:40 Urine Sodium 141.4 mEq/L 08/20/17 19:40 Consult Discharge Plan - Plan Referrals: Angelita Floyd CNP [Partnered Physician] - 08/27/17 2:00 pm Kasia Bunn MD [Partnered Physician] - 09/23/17 11:00 am Prescriptions: Calcium Carbonate [Tums] 1,000 mg PO TID #90 tab.chew Cholecalciferol (D-3) [Vitamin D] 2,000 unit PO DAILY #30 tablet Magnesium Oxide [Mag-Ox] 400 mg PO BID #60 tablet
== END 2017-08-25 17:35 | disposition home or self-care (01) | DRG 640 ==
LOC: EMEROO 08:59 → 3ANU 08:59
PROVIDERS: ADMIT Internal Medicine; ATTEND Internal Medicine

== ENCOUNTER 2017-09-11 06:50 | Inpatient (IN) ==
[2017-09-11] MEDS ORDERED: 0.9 % Sodium Chloride 1,000 ML IVC ONE ×2 (07:10→09:46)
--- NOTE | 2017-09-11 07:15 | Emergency Department Note ---
Disposition Clinical Impression: Dizziness, Hypomagnesemia Urinary tract infection Qualifiers: Urinary tract infection type: acute cystitis Hematuria presence: without hematuria Qualified Code(s): N30.00 - Acute cystitis without hematuria Disposition: Admitted As Inpatient Condition: Fair Referrals: Sloane Murphy DO [Primary Care Provider] - Forms: ED Satisfaction Letter Time of Disposition: 09:48 Dizziness HPI - General Chief Complaint: ED Dizziness Stated Complaint: dizziness Time Seen by Provider: 09/11/17 06:55 Source: patient, EMS Limitations: no limitations Nursing Notes Reviewed: Yes Vital Signs Reviewed: Yes - History of Present Illness HPI Narrative: Alert and oriented nontoxic appearing 67-year-old female presents for a complaint of dizziness that began at approximately noon yesterday afternoon. She denies any injury or trauma prior to these symptoms. She describes a sensation that "I am just spinning, not necessarily my surroundings". She complains of associated nausea as well but denies any vomiting. She denies any visual disturbances, fever, chills, chest pain, abdominal pain, hematuria, hematemesis, hematochezia, or melena. She does state that she has been experiencing intermittent episodes of shortness of breath, however states this is not necessarily worsened over her baseline COPD status. She does state a history of irritable bowel syndrome and states that she has had multiple episodes of diarrhea over the past several days. She denies any weakness of the extremities, or paresthesias of the extremities. The patient states that she has a history of electrolyte imbalances. She was recently admitted to this facility on 08/20/17 for hypomagnesemia. That time, she also stated similar symptoms such as dizziness that is worse with positional changes, and movement, as well as multiple episodes of diarrhea. Pt Subjective Complaint: dizziness Onset (ago): day(s) (noon yesterday) Timing: sudden onset History of similar episodes: No History of trauma: No Severity: moderate Improves with: remaining still Worsens with: movement, position Associated symptoms: Reports: shortness of breath (intermittent, but history of COPD), nausea. Denies: chest pain, diaphoresis, fever, syncope, vision changes , vomiting, palpitations - Related Data Home Medications Medication Instructions Recorded Confirmed Aspirin 81 mg PO DAILY 06/05/16 08/19/17 Cholecalciferol (Vitamin D3) 1,000 unit PO DAILY 06/05/16 08/19/17 [Vitamin D3] Metoprolol [Lopressor] 50 mg PO BID 06/05/16 08/19/17 Multivitamin [Multivitamins] 1 cap PO DAILY 06/05/16 08/19/17 Oxygen 2 l NS AD 06/05/16 08/19/17 Amiodarone [Cordarone] 200 mg PO DAILY 06/27/16 08/19/17 Calcium Carbonate [Calcium] 1,000 mg PO BID 04/28/17 08/19/17 Ferrous Sulfate 325 mg PO DAILY 04/28/17 08/19/17 Magnesium Chloride [Magnesium Dr] 128 mg PO TID 04/28/17 08/19/17 Omeprazole [PriLOSEC] 20 mg PO DAILY 04/28/17 08/19/17 Alosetron HCl 0.5 mg PO BID 08/19/17 08/19/17 Baclofen [Lioresal] 10 mg PO TID 08/19/17 08/19/17 Previous Rx's Medication Instructions Recorded Potassium Chloride 20 meq PO DAILY tab.er.prt 07/06/16 Calcium Carbonate [Tums] 1,000 mg PO TID #90 tab.chew 08/25/17 Cholecalciferol (D-3) [Vitamin D] 2,000 unit PO DAILY #30 tablet 08/25/17 Magnesium Oxide [Mag-Ox] 400 mg PO BID #60 tablet 08/25/17 Allergies Allergy/AdvReac Type Severity Reaction Status Date / Time peanut Allergy Hives Verified 05/16/17 13:35 zinc Allergy Hives Verified 05/16/17 13:35 Sulfa (Sulfonamide AdvReac Mild constipatio Verified 05/16/17 13:35 Antibiotics) n All systems ED: reviewed and negative except as stated. Constitutional: Denies: fever, chills, weakness, weight change Eyes: Denies: eye pain, eye discharge, vision change ENT ED: Denies: ear pain, throat pain, dental pain, hearing loss, epistaxis, congestion, dysphagia Cardiovascular: Denies: chest pain, palpitations, dyspnea on exertion, edema, syncope Respiratory: Denies: cough, dyspnea, wheezes, hemoptysis, stridor Gastrointestinal: Reports: as per HPI, nausea, diarrhea. Denies: abdominal pain , vomiting, constipation, hematemesis, melena, hematochezia Genitourinary: Denies: dysuria, frequency, hematuria, discharge Musculoskeletal: Denies: back pain, neck pain, arthralgia, myalgia Integumentary: Denies: rash, abrasion, lesions Neurological: Reports: as per HPI, other (dizziness). Denies: headache, weakness, numbness, paresthesias, confusion, abnormal gait, vertigo Psychiatric: Denies: anxiety, depression, suicidal thoughts, homicidal thoughts , auditory hallucinations, visual hallucinations Endocrine: Denies: fatigue Hematological/Lymphatic: Denies: easy bleeding, easy bruising Allergic/Immunologic: Denies: facial swelling, urticaria Past Medical History - Past Medical History Attestation: Yes The following information was validated with the patient. Source: patient, nursing notes reviewed Medical history: Reports: atrial fibrillation, COPD, coronary artery disease, diabetes, hyperlipidemia, hypertension, myocardial infarction, other Surgical history: Reports: hysterectomy, pacemaker/AICD, other Psychiatric history: Reports: no psych history MACHINE DEBURRER history: Reports: no MACHINE DEBURRER history - Social History Smoking Status: Never smoker Smokeless Tobacco Status: No Alcohol use: Reports: none Drug use: Reports: none Physical Exam - General Limitations: no limitations General appearance: alert, in no apparent distress - Head Head exam: atraumatic, normocephalic, normal inspection - Eye Eye exam: Present: normal appearance, PERRL, EOMI. Absent: nystagmus - Expanded Eye Exam Pupils: Bilateral: regular, round, reactive, size (4) - ENT ENT exam: mucous membranes dry - Neck Neck exam: Present: normal inspection, full ROM, trachea midline - Chest Chest inspection: Present: normal inspection, symmetric chest wall rise - Respiratory Respiratory exam: Present: normal lung sounds bilaterally. Absent: respiratory distress, wheezes, stridor, accessory muscle use, prolonged expiratory phase - Cardiovascular Cardiovascular exam: Present: regular rate, normal rhythm, normal heart sounds - Abdominal Exam Abdominal exam: Present: soft, Non-Tender, normal bowel sounds. Absent: distention, guarding, rebound, rigidity, mass - Extremities Exam Extremities exam: Present: normal inspection, full ROM. Absent: tenderness, pedal edema - Neurological Exam Neurological exam: Present: alert, oriented X3 - Expanded Neurological Exam Motor strength - LUE: 5/5 Motor strength - RUE: 5/5 Motor strength - LLE: 5/5 Motor strength - RLE: 5/5 Coma Scale Eye Opening: Spontaneous Coma Scale Motor Response: Obeys Commands Coma Scale Verbal Response: Oriented Coma Scale Total: 15 - Psychiatric Psychiatric exam: Present: normal affect, normal mood - Skin Skin exam: Present: warm, dry, intact, normal color Course Course Narrative: 0945: I spoke with Dr. Land of the hospitalist service who has accepted the patient for admission and further treatment. I discussed this case with Dr. Dulce Miles as well. Dr. Dulce Miles has had aohl-ch-foru time with patient and agrees with admission to the hospitalist service. Vital Signs Temperature 97.4 F L 09/11/17 06:55 Pulse Rate 64 09/11/17 06:55 Respiratory Rate 16 09/11/17 06:55 Blood Pressure 115/73 09/11/17 06:55 O2 Sat by Pulse Oximetry 99 09/11/17 06:55 Temperature 97.4 F L 09/11/17 06:55 Pulse Rate 86 09/11/17 09:15 Respiratory Rate 16 09/11/17 09:15 Blood Pressure 117/70 09/11/17 09:15 O2 Sat by Pulse Oximetry 99 09/11/17 09:15 Oxygen Delivery Oxygen Delivery Room Air Dizziness - Medical Records Medical records reviewed: Yes I reviewed the patient's medical records. - Lab Data Lab results reviewed: Yes I reviewed the patient's lab results. Lab results narrative: Lab Results 09/11/17 09/11/17 09/11/17 Range/Units 07:31 07:31 07:31 WBC 10.9 (4.3-11.1) K/mcL RBC 4.30 (3.82-4.97) M/mcL Hgb 12.4 (11.5-15.4) g/dL Hct 40.1 (35.3-44.9) % MCV 93.3 (83.0-100.0) fL MCH 28.8 (28.0-33.3) pg MCHC 30.9 L (31.6-35.5) g/dL RDW 15.2 H (11.5-14.5) % Plt Count 406 H (140-400) K/mcL MPV 10.4 (9.4-12.4) fL Immature Gran % 0.3 (0-4) % Seg Neutrophils % 68.0 % Lymphocytes % 21.9 % Monocytes % 6.4 % Eosinophils % 2.3 % Basophils % 1.1 % Neutrophils # 7.4 (1.6-8.9) K/mcL Lymphocytes # 2.4 (0.6-4.6) K/mcL Monocytes # 0.7 (0.0-1.3) K/mcL Eosinophils # 0.3 (0.0-0.6) K/mcL Basophils # 0.1 (0.0-0.2) K/mcL PT 13.7 H (9.4-12.1) Seconds INR 1.3 APTT 33.5 (26.0-36.0) Seconds Sodium 141 (136-145) mEq/L Potassium 4.6 (3.5-5.1) mEq/L Chloride 112 H (98-107) mEq/L Carbon Dioxide 18 L (23-29) mEq/L BUN 56 H (8-23) mg/dL Creatinine 1.04 (0.60-1.20) mg/dL Est GFR ( Amer) > 60 (> 60) Est GFR (Non-Af Amer) 53 L (> 60) BUN/Creatinine Ratio 54 H (6-26) Glucose 153 H (70-105) mg/dL Calculated Osmolality 311 H (280-300) Calcium 9.7 (8.6-10.3) mg/dL Phosphorus 4.5 (2.7-4.5) mg/dL Magnesium 1.4 L (1.6-2.6) mg/dL Troponin I (< 0.04) ng/mL Urine Color (Yellow) Urine Clarity (Clear) Urine pH (5.0-8.0) pH Units Ur Specific [place] (1.010-1.025) Urine Protein (Neg-Trace) mg/dL Urine Glucose (UA) (Normal) mg/dL Urine Ketones (Negative) mg/dL Urine Blood (Negative) Urine Nitrite (Negative) Urine Bilirubin (Negative) Urine Urobilinogen (Normal) mg/dL Ur Leukocyte Esterase (Negative) Urine Microscopic RBC (0-3) per hpf Urine Microscopic WBC (0-3) per hpf Ur Squamous Epith Cells (None-Few) per lpf Urine Bacteria (None-Few) per hpf Hyaline Casts (None-Few) per lpf Ur Culture Indicated? (NO) 09/11/17 09/11/17 Range/Units 07:31 09:11 WBC (4.3-11.1) K/mcL RBC (3.82-4.97) M/mcL Hgb (11.5-15.4) g/dL Hct (35.3-44.9) % MCV (83.0-100.0) fL MCH (28.0-33.3) pg MCHC (31.6-35.5) g/dL RDW (11.5-14.5) % Plt Count (140-400) K/mcL MPV (9.4-12.4) fL Immature Gran % (0-4) % Seg Neutrophils % % Lymphocytes % % Monocytes % % Eosinophils % % Basophils % % Neutrophils # (1.6-8.9) K/mcL Lymphocytes # (0.6-4.6) K/mcL Monocytes # (0.0-1.3) K/mcL Eosinophils # (0.0-0.6) K/mcL Basophils # (0.0-0.2) K/mcL PT (9.4-12.1) Seconds INR APTT (26.0-36.0) Seconds Sodium (136-145) mEq/L Potassium (3.5-5.1) mEq/L Chloride (98-107) mEq/L Carbon Dioxide (23-29) mEq/L BUN (8-23) mg/dL Creatinine (0.60-1.20) mg/dL Est GFR ( Amer) (> 60) Est GFR (Non-Af Amer) (> 60) BUN/Creatinine Ratio (6-26) Glucose (70-105) mg/dL Calculated Osmolality (280-300) Calcium (8.6-10.3) mg/dL Phosphorus (2.7-4.5) mg/dL Magnesium (1.6-2.6) mg/dL Troponin I < 0.03 (< 0.04) ng/mL Urine Color Yellow (Yellow) Urine Clarity Cloudy A (Clear) Urine pH 5.5 (5.0-8.0) pH Units Ur Specific [place] 1.020 (1.010-1.025) Urine Protein Negative (Neg-Trace) mg/dL Urine Glucose (UA) Normal (Normal) mg/dL Urine Ketones Negative (Negative) mg/dL Urine Blood Negative (Negative) Urine Nitrite Positive A (Negative) Urine Bilirubin Negative (Negative) Urine Urobilinogen Normal (Normal) mg/dL Ur Leukocyte Esterase Small H (Negative) Urine Microscopic RBC 3-5 H (0-3) per hpf Urine Microscopic WBC 15-30 H (0-3) per hpf Ur Squamous Epith Cells Many H (None-Few) per lpf Urine Bacteria Many H (None-Few) per hpf Hyaline Casts Few (None-Few) per lpf Ur Culture Indicated? NO. (NO) Result diagrams: 09/11/17 07:31 09/11/17 07:31 Lab Results 09/11/17 09/11/17 09/11/17 Range/Units 07:31 07:31 07:31 WBC 10.9 (4.3-11.1) K/mcL RBC 4.30 (3.82-4.97) M/mcL Hgb 12.4 (11.5-15.4) g/dL Hct 40.1 (35.3-44.9) % MCV 93.3 (83.0-100.0) fL MCH 28.8 (28.0-33.3) pg MCHC 30.9 L (31.6-35.5) g/dL RDW 15.2 H (11.5-14.5) % Plt Count 406 H (140-400) K/mcL MPV 10.4 (9.4-12.4) fL Immature Gran % 0.3 (0-4) % Seg Neutrophils % 68.0 % Lymphocytes % 21.9 % Monocytes % 6.4 % Eosinophils % 2.3 % Basophils % 1.1 % Neutrophils # 7.4 (1.6-8.9) K/mcL Lymphocytes # 2.4 (0.6-4.6) K/mcL Monocytes # 0.7 (0.0-1.3) K/mcL Eosinophils # 0.3 (0.0-0.6) K/mcL Basophils # 0.1 (0.0-0.2) K/mcL PT 13.7 H (9.4-12.1) Seconds INR 1.3 APTT 33.5 (26.0-36.0) Seconds Sodium 141 (136-145) mEq/L Potassium 4.6 (3.5-5.1) mEq/L Chloride 112 H (98-107) mEq/L Carbon Dioxide 18 L (23-29) mEq/L BUN 56 H (8-23) mg/dL Creatinine 1.04 (0.60-1.20) mg/dL Est GFR ( Amer) > 60 (> 60) Est GFR (Non-Af Amer) 53 L (> 60) BUN/Creatinine Ratio 54 H (6-26) Glucose 153 H (70-105) mg/dL Calculated Osmolality 311 H (280-300) Calcium 9.7 (8.6-10.3) mg/dL Phosphorus 4.5 (2.7-4.5) mg/dL Magnesium 1.4 L (1.6-2.6) mg/dL Troponin I (< 0.04) ng/mL Urine Color (Yellow) Urine Clarity (Clear) Urine pH (5.0-8.0) pH Units Ur Specific [place] (1.010-1.025) Urine Protein (Neg-Trace) mg/dL Urine Glucose (UA) (Normal) mg/dL Urine Ketones (Negative) mg/dL Urine Blood (Negative) Urine Nitrite (Negative) Urine Bilirubin (Negative) Urine Urobilinogen (Normal) mg/dL Ur Leukocyte Esterase (Negative) Urine Microscopic RBC (0-3) per hpf Urine Microscopic WBC (0-3) per hpf Ur Squamous Epith Cells (None-Few) per lpf Urine Bacteria (None-Few) per hpf Hyaline Casts (None-Few) per lpf Ur Culture Indicated? (NO) 09/11/17 09/11/17 Range/Units 07:31 09:11 WBC (4.3-11.1) K/mcL RBC (3.82-4.97) M/mcL Hgb (11.5-15.4) g/dL Hct (35.3-44.9) % MCV (83.0-100.0) fL MCH (28.0-33.3) pg MCHC (31.6-35.5) g/dL RDW (11.5-14.5) % Plt Count (140-400) K/mcL MPV (9.4-12.4) fL Immature Gran % (0-4) % Seg Neutrophils % % Lymphocytes % % Monocytes % % Eosinophils % % Basophils % % Neutrophils # (1.6-8.9) K/mcL Lymphocytes # (0.6-4.6) K/mcL Monocytes # (0.0-1.3) K/mcL Eosinophils # (0.0-0.6) K/mcL Basophils # (0.0-0.2) K/mcL PT (9.4-12.1) Seconds INR APTT (26.0-36.0) Seconds Sodium (136-145) mEq/L Potassium (3.5-5.1) mEq/L Chloride (98-107) mEq/L Carbon Dioxide (23-29) mEq/L BUN (8-23) mg/dL Creatinine (0.60-1.20) mg/dL Est GFR ( Amer) (> 60) Est GFR (Non-Af Amer) (> 60) BUN/Creatinine Ratio (6-26) Glucose (70-105) mg/dL Calculated Osmolality (280-300) Calcium (8.6-10.3) mg/dL Phosphorus (2.7-4.5) mg/dL Magnesium (1.6-2.6) mg/dL Troponin I < 0.03 (< 0.04) ng/mL Urine Color Yellow (Yellow) Urine Clarity Cloudy A (Clear) Urine pH 5.5 (5.0-8.0) pH Units Ur Specific [place] 1.020 (1.010-1.025) Urine Protein Negative (Neg-Trace) mg/dL Urine Glucose (UA) Normal (Normal) mg/dL Urine Ketones Negative (Negative) mg/dL Urine Blood Negative (Negative) Urine Nitrite Positive A (Negative) Urine Bilirubin Negative (Negative) Urine Urobilinogen Normal (Normal) mg/dL Ur Leukocyte Esterase Small H (Negative) Urine Microscopic RBC 3-5 H (0-3) per hpf Urine Microscopic WBC 15-30 H (0-3) per hpf Ur Squamous Epith Cells Many H (None-Few) per lpf Urine Bacteria Many H (None-Few) per hpf Hyaline Casts Few (None-Few) per lpf Ur Culture Indicated? NO. (NO) - Radiology Data Radiology results reviewed: Yes I reviewed the patient's radiology results. Chest X-Ray 09/11/17 07:10 IMPRESSION: No acute process. Stable exam. D/ / Frandy Larkin MD / Frandy Larkin MD Interpreting Provider: Frandy Larkin MD Head CT 09/11/17 07:10 IMPRESSION: No acute intracranial abnormality. D/ / Virgilio Buenrostro MD / Virgilio Buenrostro MD Interpreting Provider: Virgilio Buenrostro MD - EKG Data EKG attestation: Yes I reviewed and interpreted this EKG. EKG results narrative: EKG reviewed by Dr. Dulce Miles as well. EKG shows sinus rhythm at a rate of 62 bpm. AR interval 180, QRS duration 86, QT/QTc interval 433/439. No ectopy noted. No STEMI. No significant changes when compared to an EKG dated from .
[2017-09-11 07:41] LABS: Basophils # 0.1 K/mcL (0.0-0.2); Basophils % 1.1 %; Eosinophils # 0.3 K/mcL (0.0-0.6); Eosinophils % 2.3 %; Hematocrit 40.1 % (35.3-44.9); Hemoglobin 12.4 g/dL (11.5-15.4); Immature Granulocytes % 0.3 % (0-4); Lymphocytes # 2.4 K/mcL (0.6-4.6); Lymphocytes % 21.9 %; Mean Corpuscular HGB Conc 30.9 g/dL (31.6-35.5); Mean Corpuscular Hemoglobin 28.8 pg (28.0-33.3); Mean Corpuscular Volume 93.3 fL (83.0-100.0); Mean Platelet Volume 10.4 fL (9.4-12.4); Monocytes # 0.7 K/mcL (0.0-1.3); Monocytes % 6.4 %; Neutrophils # 7.4 K/mcL (1.6-8.9); Platelet Count 406 K/mcL (140-400); Red Cell Distribution Width 15.2 % (11.5-14.5)
[2017-09-11 07:47] LABS: INR 1.3; Prothrombin Time 13.7 Seconds (9.4-12.1)
[2017-09-11 07:49] LABS: Activated Partial Thrombo Time 33.5 Seconds (26.0-36.0)
[2017-09-11 07:56] LABS: BUN/Creatinine Ratio 54 (6-26); Blood Urea Nitrogen 56 mg/dL (8-23); Calcium 9.7 mg/dL (8.6-10.3); Carbon Dioxide 18 mEq/L (23-29); Chloride 112 mEq/L (98-107); Glucose 153 mg/dL (70-105); Magnesium 1.4 mg/dL (1.6-2.6); Osmolality,Calculated 311 (280-300); Phosphorous 4.5 mg/dL (2.7-4.5); Potassium 4.6 mEq/L (3.5-5.1); Sodium 141 mEq/L (136-145); eGFR For African Americans > 60 (> 60); eGFR For Non-African Americans 53 (> 60)
[2017-09-11] MEDS ORDERED: Magnesium Sulfate 1 GM in D5% in Water 100 ML IVPB ONE (09:17)
[2017-09-11 09:24] LABS: Bilirubin,Urine Negative (Negative); Blood,Urine Negative (Negative); Clarity,Urine Cloudy (Clear); Color,Urine Yellow (Yellow); Glucose,Urine (UA) Normal (Normal); Ketones,Urine Negative (Negative); Leukocyte Esterase,Urine Small (Negative); Nitrite,Urine Positive (Negative); PH,Urine 5.5 pH Units (5.0-8.0); Protein,Urine Negative (Neg-Trace); Urobilinogen,Urine Normal (Normal)
[2017-09-11 09:26] LABS: Bacteria,Urine Many per hpf (None-Few); Hyaline Casts,Urine Few per lpf (None-Few); Squamous Epithelial Cell,Urine Many per lpf (None-Few); WBC,Urine 15-30 per hpf (0-3)
--- NOTE | 2017-09-11 09:38 | Emergency Department Note ---
START Narrative - START START: I examined this patient and my medical decision-making was reviewed with the Resident Physician. I agree with the documented findings, disposition and treatment plan as described except to the extent set forth below. 67 year old talib who I have cared for in the past presnts to the ED with complaints of dizziness. SHe has presented like this in the past and has been hypomagenisuem and is hypomagenisum today. Her last admission she did not have an MRI and likly would benefit with admission with that evalution today. WE will replace her magneisum and then admit to [facility] .
[2017-09-11] MEDS ORDERED: Furosemide 40 MG TABLET PO PRN (10:53)
[2017-09-11] MEDS ORDERED: Albuterol 2.5 MG/3 ML NEBULIZER IH PRN (11:00)
--- NOTE | 2017-09-11 11:03 | Internal Med History&Physical ---
Date of Encounter: 09/11/17 Time of Encounter: 11:02 Assessment and Plan (1) Acute cystitis without hematuria Current visit: Yes Status: Acute Patient has general symptoms consistent for a UTI and positive urinalysis. Urinalysis was a clean catch however, concerned that because of her diarrhea specimen could have been contaminated and therefore we will obtain a catheter specimen. Follow-up repeat UA, culture and sensitivities. Treat empirically with ceftriaxone. I reviewed her medical record and in the past she had urine cultures positive for Escherichia coli and and Klebsiella both sensitive to ceftriaxone. (2) Dizziness Current visit: Yes Status: Acute Could be in the context of a UTI. We will also be secondary to benign positional vertigo and dehydration. Less likely due to cerebellar stroke. We will treat the UTI. Provide IV hydration. Meclizine. If symptoms persist will obtain MRI of the brain. (3) Hypomagnesemia Current visit: Yes Status: Acute Replete with IV and oral magnesium (4) CKD (chronic kidney disease) stage 3, GFR 30-59 ml/min Current visit: No Status: Acute Avoid nephrotoxins. Gentle IV fluid hydration. (5) DVT prophylaxis Current visit: No Status: Acute SCDs Internal Medicine - H&P: HPI Chief complaint: Dizziness Admitted From: Emergency Dept Plans for Post Hospital Care: Home History of present illness: Ms. Hebert is a 67 year old female with multiple medical comorbidities including hypertension, type 2 diabetes, coronary artery disease, COPD, atrial fibrillation and irritable bowel syndrome who presented to the hospital for evaluation of dizziness. She reports severe dizziness sensation that started yesterday, described as rocking sensation, associated with severe nausea and vomiting. Symptoms worse with standing and trying to ambulate. They improved with Antivert given in the emergency department. She denies abdominal pain and chest pain shortness of breath headache vision changes dysuria hematuria and urinary frequency. She reports increasing diarrhea related to her known history of irritable bowel syndrome. She reports decreased appetite and oral intake. She reports 200 pound weight loss over the last 1 year. A 10 point review of systems was otherwise negative. Family history was reviewed and found to be noncontributory Past Med Surg Social Fam HX - Past Medical History Medical history: atrial fibrillation, COPD, coronary artery disease, diabetes, hyperlipidemia, hypertension, myocardial infarction, other Psychiatric history: no psych history - Past Surgical History Surgical History: hysterectomy, pacemaker/AICD, other - Social History Smoking Status: Never smoker Smokeless Tobacco Status: No Alcohol use: none Drug use: none - Family History Mother Living Status: Hx Family Cardiac Disorders: Yes Hx Family Endocrine Disorder: Yes Internal Medicine - H&P: Meds Aspirin 81 mg PO DAILY 06/05/16 [History] Metoprolol [Lopressor] 50 mg PO BID 06/05/16 [History] Multivitamin [Multivitamins] 1 cap PO DAILY 06/05/16 [History] Amiodarone [Cordarone] 200 mg PO DAILY 06/27/16 [History] Potassium Chloride 20 meq PO DAILY tab.er.prt 07/06/16 [Rx] Calcium Carbonate [Calcium] 1,000 mg PO BID 04/28/17 [History] Ferrous Sulfate 325 mg PO DAILY 04/28/17 [History] Omeprazole [PriLOSEC] 20 mg PO DAILY 04/28/17 [History] Alosetron HCl 0.5 mg PO BID 08/19/17 [History] Baclofen [Lioresal] 10 mg PO TID 08/19/17 [History] Cholecalciferol (D-3) [Vitamin D] 2,000 unit PO DAILY #30 tablet 08/25/17 [Rx] Magnesium Oxide [Mag-Ox] 400 mg PO BID #60 tablet 08/25/17 [Rx] Albuterol Sulfate [Ventolin Hfa] 2 puff IH Q6H PRN 09/11/17 [History] Beclomethasone Diprop 80mcg [Qvar 80 mcg] 1 puff IH BID 09/11/17 [History] BuPROPion XL (24 HR) [Wellbutrin XL] 150 mg PO DAILY 09/11/17 [History] Furosemide [Lasix] 40 mg PO DAILY PRN 09/11/17 [History] 3 Allergy/AdvReac Type Severity Reaction Status Date / Time peanut Allergy Hives Verified 05/16/17 13:35 zinc Allergy Hives Verified 05/16/17 13:35 Sulfa (Sulfonamide AdvReac Mild constipatio Verified 05/16/17 13:35 Antibiotics) n All Systems PM: A 10-system review of systems was performed and is negative for pertinent findings except as documented above in the HPI. - Constitutional Vitals: Temp Pulse Resp BP Pulse Ox 97.4 F L 55 16 119/62 99 02/17/18 10:46 09/11/17 10:35 09/11/17 10:35 09/11/17 10:35 09/11/17 10:35 - Respiratory Respiratory exam: Present: CTAB. Absent: accessory muscle use, rales, rhonchi, wheezes - Cardiovascular Cardiovascular exam: Present: RRR, +S1, +S2. Absent: diastolic murmur, gallop, rubs, systolic murmur - GI/Abdominal GI/Abdominal exam: Present: normal bowel sounds, soft, no peritoneal signs. Absent: distended, tenderness - Extremities Exam Extremities exam: Present: warm, radial pulses palpable and symmetrical. Absent : calf tenderness, cyanotic, pedal edema - Neurological Exam Neurological exam: Present: CN II-XII intact, oriented X3, no focal deficits. Absent: pronater drift, facial droop, speech deficit - Skin Skin exam: Present: dry, intact Internal Med - H&P Results - Labs CBC & Chem 7: 09/11/17 07:31 09/11/17 07:31 - EKG Data -: EKG Interpreted by Myself EKG shows normal: sinus rhythm (61 bpm)
[2017-09-11] MEDS: cefTRIAXone 1,000 MG in Water for inj. (sterile) 20 ML 10 ML IVP SCH (12:09)
[2017-09-11] MEDS ORDERED: Ondansetron 4 MG/2 ML VIAL IVP PRN (12:36)
[2017-09-11] MEDS: *HR* Amiodarone 200 MG TABLET PO SCH (12:56)
[2017-09-11] MEDS: Aspirin 81 MG TAB.CHEW PO SCH (12:56)
[2017-09-11 13:00] LABS: Bilirubin,Urine Negative (Negative); Blood,Urine Negative (Negative); Clarity,Urine Clear (Clear); Color,Urine Yellow (Yellow); Glucose,Urine (UA) Normal (Normal); Ketones,Urine Negative (Negative); Leukocyte Esterase,Urine Trace (Negative); Nitrite,Urine Positive (Negative); PH,Urine 5.5 pH Units (5.0-8.0); Protein,Urine Negative (Neg-Trace); Specific Gravity,Urine 1.019 (1.010-1.025); Urobilinogen,Urine Normal (Normal)
[2017-09-11 13:01] LABS: Bacteria,Urine Moderate per hpf (None-Few); Hyaline Casts,Urine None Seen per lpf (None-Few); RBC,Urine 0-3 per hpf (0-3); Squamous Epithelial Cell,Urine Many per lpf (None-Few); WBC,Urine 0-3 per hpf (0-3)
[2017-09-11] MEDS: Baclofen 10 MG TABLET PO SCH ×2 (15:03→21:38)
[2017-09-11] MEDS: Magnesium Oxide 400 MG TABLET PO SCH (21:37)
[2017-09-11] MEDS: Beclomethasone 80mcg MDI IH SCH (22:23)
[2017-09-12] MEDS: *HR* Amiodarone 200 MG TABLET PO SCH (08:07)
[2017-09-12] MEDS: Baclofen 10 MG TABLET PO SCH ×3 (08:09→21:44)
[2017-09-12] MEDS: Aspirin 81 MG TAB.CHEW PO SCH (08:09)
[2017-09-12] MEDS: Magnesium Oxide 400 MG TABLET PO SCH ×2 (08:09→21:44)
[2017-09-12] MEDS: cefTRIAXone 1,000 MG in Water for inj. (sterile) 20 ML 10 ML IVP SCH (08:11)
[2017-09-12 08:31] LABS: Basophils # 0.1 K/mcL (0.0-0.2); Basophils % 0.9 %; Eosinophils # 0.2 K/mcL (0.0-0.6); Eosinophils % 2.2 %; Hematocrit 38.8 % (35.3-44.9); Hemoglobin 12.1 g/dL (11.5-15.4); Immature Granulocytes % 0.2 % (0-4); Immature Platelets 3.2 % (1.1-6.1); Lymphocytes # 2.4 K/mcL (0.6-4.6); Lymphocytes % 24.7 %; Mean Corpuscular HGB Conc 31.2 g/dL (31.6-35.5); Mean Corpuscular Hemoglobin 29.2 pg (28.0-33.3); Mean Corpuscular Volume 93.7 fL (83.0-100.0); Mean Platelet Volume 10.6 fL (9.4-12.4); Monocytes # 0.5 K/mcL (0.0-1.3); Monocytes % 5.7 %; Neutrophils # 6.3 K/mcL (1.6-8.9); Platelet Count 333 K/mcL (140-400); Red Blood Count 4.14 M/mcL (3.82-4.97); Red Cell Distribution Width 15.5 % (11.5-14.5); Segmented Neutrophils % 66.3 %
[2017-09-12] MEDS: Beclomethasone 80mcg MDI IH SCH ×2 (08:41→22:24)
[2017-09-12 08:48] LABS: BUN/Creatinine Ratio 37 (6-26); Blood Urea Nitrogen 37 mg/dL (8-23); Calcium 9.5 mg/dL (8.6-10.3); Carbon Dioxide 20 mEq/L (23-29); Chloride 114 mEq/L (98-107); Glucose 103 mg/dL (70-105); Magnesium 1.5 mg/dL (1.6-2.6); Osmolality,Calculated 301 (280-300); Potassium 4.5 mEq/L (3.5-5.1); Sodium 141 mEq/L (136-145); eGFR For African Americans > 60 (> 60); eGFR For Non-African Americans 55 (> 60)
[2017-09-12] MEDS ORDERED: 0.9 % Sodium Chloride 1,000 ML ONE (15:28)
[2017-09-12] MEDS ORDERED: 0.9 % Sodium Chloride 1,000 ML IVC SCH (15:30)
--- NOTE | 2017-09-12 15:30 | Internal Med Progress Note ---
Date of Encounter: 09/12/17 Time of Encounter: 11:00 - Assessment and plan (1) Acute cystitis without hematuria Current Visit: Yes Status: Acute Assessment and plan: -Will continue IV ceftriaxone (2) Dizziness Current Visit: Yes Status: Acute Assessment and plan: -Suspect secondary to dehydration due to diarrhea -Continue gentle IV fluids given history of ischemic cardiomyopathy -Continue meclizine started on day of admission (3) Hypomagnesemia Current Visit: Yes Status: Acute Assessment and plan: -Magnesium 1.4 on 09/11/17 and is now 1.5 today -Will continue magnesium supplementation and to monitor (4) (HFpEF) heart failure with preserved ejection fraction Current Visit: No Status: Acute Assessment and plan: -Patient appears euvolemic; continue home dose of metoprolol tartrate -Home Lasix prn currently held due to dehydration, (5) Chronic diarrhea Current Visit: No Status: Chronic Assessment and plan: -Patient being worked up by GI at [facility] -Currently asymptomatic; continue to monitor (6) HTN (hypertension) Current Visit: Yes Status: Acute Assessment and plan: -Controlled; continue with metoprolol tartrate Qualifiers: Hypertension type: essential hypertension Qualified Code(s): I10 - Essential (primary) hypertension (7) DVT prophylaxis Current Visit: No Status: Acute Assessment and plan: SCDs - Subjective Interval history: Patient presented with dizziness and found to be dehydrated on labs in addition to pyuria on urinalysis Continue IV fluids and IV ceftriaxone - Constitutional Vitals: Temp Pulse Resp BP Pulse Ox 97.5 F L 95 16 104/65 95 09/12/17 15:14 09/12/17 15:14 09/12/17 15:14 09/12/17 15:14 09/12/17 15:14 General appearance: Present: A&O X 3, no acute distress - Respiratory Respiratory exam: Present: CTAB. Absent: accessory muscle use, rales, rhonchi, wheezes - Cardiovascular Cardiovascular exam: Present: RRR, +S1, +S2. Absent: diastolic murmur, gallop, rubs, systolic murmur Internal Medicine: Result - Labs CBC & Chem 7: 09/12/17 08:24 09/12/17 08:24 Labs: Short CBC 09/12/17 Range/Units 08:24 WBC 9.5 (4.3-11.1) K/mcL Hgb 12.1 (11.5-15.4) g/dL Hct 38.8 (35.3-44.9) % Plt Count 333 (140-400) K/mcL Neutrophils # 6.3 (1.6-8.9) K/mcL BMP 09/12/17 08:24 Sodium 141 Potassium 4.5 Chloride 114 H Carbon Dioxide 20 L BUN 37 H Creatinine 1.00 Glucose 103 Calcium 9.5 - ABG Interpretation ABG results: PT/INR, D-dimer PT 13.7 Seconds (9.4-12.1) H 09/11/17 07:31 Consult Discharge Plan - Plan Referrals: Sloane Murphy DO [Primary Care Provider] -
[2017-09-13] MEDS ORDERED: Melatonin 3 MG TABLET PO SCH (01:15)
[2017-09-13] MEDS ORDERED: Melatonin 3 MG TABLET PO ONE (01:15)
[2017-09-13] MEDS: Beclomethasone 80mcg MDI IH SCH ×2 (08:06→21:55)
[2017-09-13] MEDS: cefTRIAXone 1,000 MG in Water for inj. (sterile) 20 ML 10 ML IVP SCH (09:39)
[2017-09-13] MEDS: Magnesium Oxide 400 MG TABLET PO SCH ×2 (09:40→20:17)
[2017-09-13] MEDS: Baclofen 10 MG TABLET PO SCH ×3 (09:40→20:17)
[2017-09-13] MEDS: Aspirin 81 MG TAB.CHEW PO SCH (09:40)
[2017-09-13] MEDS: *HR* Amiodarone 200 MG TABLET PO SCH (09:40)
[2017-09-13 09:54] LABS: Basophils # 0.1 K/mcL (0.0-0.2); Basophils % 0.4 %; Eosinophils # 0.3 K/mcL (0.0-0.6); Eosinophils % 2.1 %; Hematocrit 35.9 % (35.3-44.9); Hemoglobin 11.2 g/dL (11.5-15.4); Immature Granulocytes % 0.3 % (0-4); Lymphocytes # 1.8 K/mcL (0.6-4.6); Lymphocytes % 15.1 %; Mean Corpuscular HGB Conc 31.2 g/dL (31.6-35.5); Mean Corpuscular Hemoglobin 29.5 pg (28.0-33.3); Mean Corpuscular Volume 94.5 fL (83.0-100.0); Mean Platelet Volume 10.7 fL (9.4-12.4); Monocytes # 0.7 K/mcL (0.0-1.3); Monocytes % 5.7 %; Neutrophils # 8.9 K/mcL (1.6-8.9); Platelet Count 271 K/mcL (140-400); Red Cell Distribution Width 15.5 % (11.5-14.5); Segmented Neutrophils % 76.4 %
[2017-09-13 10:10] LABS: BUN/Creatinine Ratio 36 (6-26); Blood Urea Nitrogen 26 mg/dL (8-23); Carbon Dioxide 22 mEq/L (23-29); Chloride 116 mEq/L (98-107); Glucose 141 mg/dL (70-105); Osmolality,Calculated 303 (280-300); Potassium 4.1 mEq/L (3.5-5.1); Sodium 143 mEq/L (136-145); eGFR For African Americans > 60 (> 60); eGFR For Non-African Americans > 60 (> 60)
[2017-09-13 12:29] LABS: Magnesium 1.4 mg/dL (1.6-2.6)
--- NOTE | 2017-09-13 19:19 | Internal Med Progress Note ---
Date of Encounter: 09/13/17 Time of Encounter: 11:00 - Assessment and plan (1) Acute cystitis without hematuria Current Visit: Yes Status: Acute Assessment and plan: -Will continue IV ceftriaxone (2) Dizziness Current Visit: Yes Status: Acute Assessment and plan: -Suspect secondary to dehydration due to diarrhea -Continue gentle IV fluids given history of ischemic cardiomyopathy -Continue meclizine started on day of admission (3) Hypomagnesemia Current Visit: Yes Status: Acute Assessment and plan: -Magnesium 1.4 on 09/11/17 and is now 1.5 today -Will continue magnesium supplementation and to monitor (4) (HFpEF) heart failure with preserved ejection fraction Current Visit: No Status: Acute Assessment and plan: -Patient appears euvolemic; continue home dose of metoprolol tartrate -Home Lasix prn currently held due to dehydration, (5) Chronic diarrhea Current Visit: No Status: Chronic Assessment and plan: -Patient being worked up by GI at [facility] -Currently asymptomatic; continue to monitor (6) HTN (hypertension) Current Visit: Yes Status: Acute Assessment and plan: -Controlled; continue with metoprolol tartrate Qualifiers: Hypertension type: essential hypertension Qualified Code(s): I10 - Essential (primary) hypertension (7) DVT prophylaxis Current Visit: No Status: Acute Assessment and plan: SCDs - Subjective Interval history: Patient presented with dizziness and found to be dehydrated on labs in addition to pyuria on urinalysis Patient complains of nausea this morning and dizziness - Constitutional Vitals: Temp Pulse Resp BP Pulse Ox 98.2 F 65 16 130/78 98 09/13/17 17:18 09/13/17 17:18 09/13/17 17:18 09/13/17 17:18 09/13/17 17:18 General appearance: Present: A&O X 3, no acute distress Internal Medicine: Result - Labs CBC & Chem 7: 09/13/17 09:38 09/13/17 09:38 Labs: Short CBC 09/13/17 Range/Units 09:38 WBC 11.7 H (4.3-11.1) K/mcL Hgb 11.2 L (11.5-15.4) g/dL Hct 35.9 (35.3-44.9) % Plt Count 271 (140-400) K/mcL Neutrophils # 8.9 (1.6-8.9) K/mcL BMP 09/13/17 09:38 Sodium 143 Potassium 4.1 Chloride 116 H Carbon Dioxide 22 L BUN 26 H Creatinine 0.72 Glucose 141 H Calcium 9.0 - ABG Interpretation ABG results: PT/INR, D-dimer PT 13.7 Seconds (9.4-12.1) H 09/11/17 07:31 Consult Discharge Plan - Plan Referrals: Sloane Murphy DO [Primary Care Provider] -
[2017-09-14] MEDS: Beclomethasone 80mcg MDI IH SCH ×2 (07:27→19:46)
[2017-09-14] MEDS: Acetaminophen 325 MG TABLET PO PRN ×2 (08:48→16:00)
[2017-09-14] MEDS: Baclofen 10 MG TABLET PO SCH ×3 (08:48→20:44)
[2017-09-14] MEDS: Magnesium Oxide 400 MG TABLET PO SCH ×2 (08:48→20:44)
[2017-09-14] MEDS: cefTRIAXone 1,000 MG in Water for inj. (sterile) 20 ML 10 ML IVP SCH (08:48)
[2017-09-14] MEDS: Aspirin 81 MG TAB.CHEW PO SCH (08:48)
[2017-09-14] MEDS: *HR* Amiodarone 200 MG TABLET PO SCH (08:48)
--- NOTE | 2017-09-14 14:29 | Internal Med Progress Note ---
<Jaime Marquez - Last Filed: 09/14/17 15:34> Date of Encounter: 09/14/17 Time of Encounter: 14:26 - Assessment and plan (1) Acute cystitis without hematuria Current Visit: Yes Status: Acute Assessment and plan: continue IV ceftriaxone day # 4 Likely D/C tomorrow (2) Hypomagnesemia Current Visit: Yes Status: Acute Assessment and plan: Mag 1.2 down from 1.4 yesterday. Continue with magnesium supplementation (3) (HFpEF) heart failure with preserved ejection fraction Current Visit: No Status: Acute Assessment and plan: Currently stable (4) Dizziness Current Visit: Yes Status: Acute Assessment and plan: Patient states that he dizziness has improved. Continue meclizine Zofran for nausea (5) DVT prophylaxis Current Visit: No Status: Acute Assessment and plan: SCDs have been ordered (6) HTN (hypertension) Current Visit: Yes Status: Acute Assessment and plan: Currently normotensive. Continue current medical management with lopressor Qualifiers: Hypertension type: essential hypertension Qualified Code(s): I10 - Essential (primary) hypertension - Subjective Interval history: Patient's that states that she is still feeling mildly dizzy with a little bit of headache. Patient states that she has significantly improved from yesterday. States that she has not having any pain with urination at this time. Overall the patient states that she is feeling much better. - Constitutional Vitals: Temp Pulse Resp BP Pulse Ox 98.2 F 94 16 120/79 98 09/14/17 13:22 09/14/17 13:22 09/14/17 13:22 09/14/17 13:22 09/14/17 13:22 General appearance: Present: A&O X 3, no acute distress - Head Head exam: Present: atraumatic, normocephalic - Neck Neck exam general surgery: Present: full ROM, normal inspection, trachea midline - Respiratory Respiratory exam: Present: CTAB. Absent: accessory muscle use, rales, rhonchi, wheezes - Cardiovascular Cardiovascular exam: Present: RRR, +S1, +S2. Absent: diastolic murmur, gallop, rubs, systolic murmur - GI/Abdominal GI/Abdominal exam: Present: normal bowel sounds, soft, no peritoneal signs. Absent: distended, tenderness - Extremities Exam Extremities exam: Present: warm. Absent: cyanotic, pedal edema - Neurological Exam Neurological exam: Present: alert, oriented X3, no focal deficits. Absent: facial droop, speech deficit - Psychiatric Psychiatric exam: Present: normal affect, normal mood - Skin Skin exam: Present: dry, intact, warm Internal Medicine: Result - Labs CBC & Chem 7: 09/14/17 14:52 09/14/17 14:52 - ABG Interpretation ABG results: PT/INR, D-dimer PT 13.7 Seconds (9.4-12.1) H 09/11/17 07:31 Consult Discharge Plan - Plan Referrals: Sloane Murphy DO [Primary Care Provider] - <Lloyd Beach - Last Filed: 09/14/17 18:45> Date of Encounter: 09/14/17 - Assessment and plan (1) Acute cystitis without hematuria Current Visit: Yes Status: Acute (2) Dehydration Current Visit: Yes Status: Acute (3) Chronic diarrhea Current Visit: No Status: Chronic (4) Dizziness Current Visit: Yes Status: Acute (5) HTN (hypertension) Current Visit: Yes Status: Acute Qualifiers: Hypertension type: essential hypertension Qualified Code(s): I10 - Essential (primary) hypertension (6) Hypomagnesemia Current Visit: Yes Status: Acute (7) CHF (congestive heart failure) Current Visit: No Status: Chronic Qualifiers: Qualified Code(s): I50.32 - Chronic diastolic (congestive) heart failure (8) Diabetes Current Visit: No Status: Chronic Qualifiers: Diabetes mellitus type: type 2 Diabetes mellitus complication status: with unspecified complications Diabetes mellitus parts counterman insulin use: with long-term use Qualified Code(s): E11.8 - Type 2 diabetes mellitus with unspecified complications; Z79.4 - senior care (current) use of insulin (9) Atrial fibrillation Current Visit: No Status: Chronic Qualifiers: Atrial fibrillation type: paroxysmal Qualified Code(s): I48.0 - Paroxysmal atrial fibrillation - Constitutional Vitals: Temp Pulse Resp BP Pulse Ox 97.9 F 66 16 115/70 97 09/14/17 15:03 09/14/17 15:03 09/14/17 15:03 09/14/17 15:03 09/14/17 15:03 Internal Medicine: Result - Labs CBC & Chem 7: 09/14/17 14:52 09/14/17 14:52 - ABG Interpretation ABG results: PT/INR, D-dimer PT 13.7 Seconds (9.4-12.1) H 09/11/17 07:31 - Attending Attestation I examined this patient and my medical decision-making was reviewed with the Resident Physician on 09/14/17. I agree with the documented findings, disposition and treatment plan as described except to the extent set forth below. Ms Hebert is currently admitted for acute dehydration due to persistent diarrhea. She remains moderate to high risk due to potential for worsening clinical status. Ms Hebert is beginning to feel better. She still has some dizziness but is tolerating diet. She has been up some. No fever or chills. Exam alert. Comfortable Mucus membranes dry Heart reg No wheeze abd soft I/P 1. Dehydration 2. Chronic diarrhea Further diagnoses and plan as above.
[2017-09-14 15:27] LABS: Calcium 8.8 mg/dL (8.6-10.3); Carbon Dioxide 22 mEq/L (23-29); Chloride 114 mEq/L (98-107); Magnesium 1.2 mg/dL (1.6-2.6); Potassium 3.9 mEq/L (3.5-5.1); Sodium 142 mEq/L (136-145)
[2017-09-14 15:31] LABS: Basophils # 0.1 K/mcL (0.0-0.2); Basophils % 0.5 %; Eosinophils # 0.3 K/mcL (0.0-0.6); Eosinophils % 2.6 %; Hematocrit 35.2 % (35.3-44.9); Hemoglobin 10.7 g/dL (11.5-15.4); Immature Granulocytes % 0.2 % (0-4); Lymphocytes # 2.1 K/mcL (0.6-4.6); Mean Corpuscular HGB Conc 30.4 g/dL (31.6-35.5); Mean Corpuscular Hemoglobin 29.3 pg (28.0-33.3); Mean Corpuscular Volume 96.4 fL (83.0-100.0); Mean Platelet Volume 10.7 fL (9.4-12.4); Monocytes # 0.7 K/mcL (0.0-1.3); Neutrophils # 7.8 K/mcL (1.6-8.9); Platelet Count 239 K/mcL (140-400); Red Blood Count 3.65 M/mcL (3.82-4.97); Red Cell Distribution Width 15.2 % (11.5-14.5); Segmented Neutrophils % 71.7 %
[2017-09-14 15:33] LABS: BUN/Creatinine Ratio 32 (6-26); Blood Urea Nitrogen 24 mg/dL (8-23); Glucose 123 mg/dL (70-105); Osmolality,Calculated 299 (280-300); eGFR For African Americans > 60 (> 60); eGFR For Non-African Americans > 60 (> 60)
[2017-09-14] MEDS ORDERED: Magnesium Sulfate 2 GM in D5% in Water 100 ML IVPB ONE (17:12)
[2017-09-14] MEDS ORDERED: traMADol 50 MG TABLET PO PRN (21:12)
[2017-09-15 05:36] LABS: Basophils # 0.1 K/mcL (0.0-0.2); Basophils % 0.6 %; Eosinophils # 0.3 K/mcL (0.0-0.6); Eosinophils % 2.6 %; Hematocrit 35.1 % (35.3-44.9); Hemoglobin 10.7 g/dL (11.5-15.4); Immature Granulocytes % 0.2 % (0-4); Lymphocytes # 1.9 K/mcL (0.6-4.6); Lymphocytes % 19.3 %; Mean Corpuscular HGB Conc 30.5 g/dL (31.6-35.5); Mean Corpuscular Hemoglobin 29.1 pg (28.0-33.3); Mean Corpuscular Volume 95.4 fL (83.0-100.0); Monocytes # 0.6 K/mcL (0.0-1.3); Monocytes % 6.2 %; Neutrophils # 7.2 K/mcL (1.6-8.9); Platelet Count 213 K/mcL (140-400); Red Blood Count 3.68 M/mcL (3.82-4.97); Red Cell Distribution Width 14.9 % (11.5-14.5); Segmented Neutrophils % 71.1 %
[2017-09-15 05:54] LABS: BUN/Creatinine Ratio 33 (6-26); Blood Urea Nitrogen 24 mg/dL (8-23); Calcium 8.8 mg/dL (8.6-10.3); Carbon Dioxide 24 mEq/L (23-29); Chloride 112 mEq/L (98-107); Glucose 101 mg/dL (70-105); Magnesium 1.5 mg/dL (1.6-2.6); Osmolality,Calculated 298 (280-300); Sodium 142 mEq/L (136-145); eGFR For African Americans > 60 (> 60); eGFR For Non-African Americans > 60 (> 60)
[2017-09-15] MEDS: Beclomethasone 80mcg MDI IH SCH (08:02)
[2017-09-15] MEDS: *HR* Amiodarone 200 MG TABLET PO SCH (08:52)
[2017-09-15] MEDS: Baclofen 10 MG TABLET PO SCH (08:52)
[2017-09-15] MEDS: Magnesium Oxide 400 MG TABLET PO SCH (08:52)
[2017-09-15] MEDS: Acetaminophen 325 MG TABLET PO PRN (08:52)
[2017-09-15] MEDS: Aspirin 81 MG TAB.CHEW PO SCH (08:54)
--- NOTE | 2017-09-15 09:00 | Discharge Summary ---
<Xuan Marquezn - Last Filed: 09/15/17 13:13> - NOTES TO OUTPATIENT PROVIDER Notes to Outpatient Provider: Have recommended that the patient follow up with her slitting machine feeder in [place] at [facility]. Patient has been prescribed meclizine for her dizziness Date of Encounter: 09/15/17 Time of Encounter: 08:51 - Discharge Diagnosis (1) Acute cystitis without hematuria Priority: Primary Status: Acute (2) Hypomagnesemia Priority: Primary Status: Acute (3) (HFpEF) heart failure with preserved ejection fraction Priority: Secondary Status: Acute (4) Dizziness Priority: Primary Status: Acute (5) DVT prophylaxis Priority: Secondary Status: Acute (6) HTN (hypertension) Priority: Secondary Status: Acute Qualifiers: Hypertension type: essential hypertension Qualified Code(s): I10 - Essential (primary) hypertension Hospital course: Ms. Hebert is a 67 year old female was admitted to the hospital for dehydration and chronic diarrhea. Patient was also found to have a urinary tract infection which was treated with Rocephin. Patient denies any urinary symptoms at this time and states that her dizziness has significantly improved. Patient does state that she is still having issues with chronic diarrhea however she follows with a physician at [facility]. I discussed discharge with this patient and that we would provide her with meclizine to help with her dizziness. Patient is stable and appropriate for discharge. Patient will be discharged home at this time. Discharge discussed with: patient - Time Spent with Patient Total time spent providing and/or coordinating discharge services: - Discharge Medications Prescriptions: Meclizine [Antivert] 25 mg PO TID PRN #12 tablet PRN Reason: Dizziness Home Medications: Aspirin 81 mg PO DAILY 06/05/16 [History] Metoprolol [Lopressor] 50 mg PO BID 06/05/16 [History] Multivitamin [Multivitamins] 1 cap PO DAILY 06/05/16 [History] Amiodarone [Cordarone] 200 mg PO DAILY 06/27/16 [History] Potassium Chloride 20 meq PO DAILY tab.er.prt 07/06/16 [Rx] Calcium Carbonate [Calcium] 1,000 mg PO BID 04/28/17 [History] Ferrous Sulfate 325 mg PO DAILY 04/28/17 [History] Omeprazole [PriLOSEC] 20 mg PO DAILY 04/28/17 [History] Alosetron HCl 0.5 mg PO BID 08/19/17 [History] Baclofen [Lioresal] 10 mg PO TID 08/19/17 [History] Cholecalciferol (D-3) [Vitamin D] 2,000 unit PO DAILY #30 tablet 08/25/17 [Rx] Magnesium Oxide [Mag-Ox] 400 mg PO BID #60 tablet 08/25/17 [Rx] Albuterol Sulfate [Ventolin Hfa] 2 puff IH Q6H PRN 09/11/17 [History] Beclomethasone Diprop 80mcg [QVAR 80 mcg] 1 puff IH BID 09/11/17 [History] BuPROPion XL (24 HR) [Wellbutrin Xl] 150 mg PO DAILY 09/11/17 [History] Furosemide [Lasix] 40 mg PO DAILY PRN 09/11/17 [History] Meclizine [Antivert] 25 mg PO TID PRN #12 tablet 09/15/17 [Rx] Allergies/Adverse Reactions: 3 Allergy/AdvReac Type Severity Reaction Status Date / Time peanut Allergy Hives Verified 05/16/17 13:35 zinc Allergy Hives Verified 05/16/17 13:35 Sulfa (Sulfonamide AdvReac Mild constipatio Verified 05/16/17 13:35 Antibiotics) n Date of admission: 09/14/17 17:32 Primary care physician: Maribel Fernandez Discharging clinician: Jaime Marquez Anticipated date of discharge: 09/15/17 - Constitutional Vitals: Temp Pulse Resp BP Pulse Ox 98.2 F 56 18 112/67 94 09/15/17 07:20 09/15/17 07:20 09/15/17 07:20 09/15/17 07:20 09/15/17 07:20 General appearance: Present: A&O X 3, no acute distress - Head Head exam: Present: atraumatic, normocephalic - Neck Neck exam general surgery: Present: full ROM, normal inspection, trachea midline - Respiratory Respiratory exam: Present: CTAB. Absent: accessory muscle use, rales, rhonchi, wheezes - Cardiovascular Cardiovascular exam: Present: RRR, +S1, +S2. Absent: diastolic murmur, gallop, rubs, systolic murmur - GI/Abdominal GI/Abdominal exam: Present: normal bowel sounds, soft, no peritoneal signs. Absent: distended, tenderness - Neurological Exam Neurological exam: Present: alert, oriented X3. Absent: no focal deficits, facial droop, speech deficit - Psychiatric Psychiatric exam: Present: normal affect, normal mood - Skin Skin exam: Present: dry, intact, warm - Patient Status Disposition: Home, Self-Care Condition: Good Overall status at discharge: patient is progressing back to baseline - Discharge Instructions Instructions: Chronic Diarrhea (DC), Hypomagnesemia (DC), Dizziness (GEN) Follow Up With: Sloane Murphy DO [Primary Care Provider] - [facility] [Provider Group] Additional Instructions: Please follow up their primary care provider appointment. Please follow up with her slitting machine feeder at [facility] for your chronic diarrhea If you are unable to get in with your slitting machine feeder I provide you with information to gastroenterology here at [facility] Please take meclizine as directed for your dizziness. Please contact your primary care physician or return to the emergency department if you have any worsening of your symptoms or any other concerns - Diet and Activity Activity: increase activity as tolerated Diet: advance to your usual diet - VTE Documentation of Mechanical Device: Intermittent pneumatic compression device <Lloyd Beach - Last Filed: 09/15/17 14:04> Date of Encounter: 09/15/17 - Discharge Diagnosis (1) Acute cystitis without hematuria Status: Resolved (2) Dehydration Priority: Primary Status: Resolved (3) Chronic diarrhea Priority: Secondary Status: Chronic (4) Dizziness Status: Acute (5) HTN (hypertension) Status: Acute Qualifiers: Hypertension type: essential hypertension Qualified Code(s): I10 - Essential (primary) hypertension (6) Hypomagnesemia Status: Resolved (7) CHF (congestive heart failure) Priority: Secondary Status: Chronic Qualifiers: Qualified Code(s): I50.32 - Chronic diastolic (congestive) heart failure (8) Diabetes Priority: Secondary Status: Chronic Qualifiers: Diabetes mellitus type: type 2 Diabetes mellitus complication status: with unspecified complications Diabetes mellitus custodial insulin use: with custodial use Qualified Code(s): E11.8 - Type 2 diabetes mellitus with unspecified complications; Z79.4 - intermediate frame tender (current) use of insulin (9) Atrial fibrillation Priority: Secondary Status: Chronic Qualifiers: Atrial fibrillation type: paroxysmal Qualified Code(s): I48.0 - Paroxysmal atrial fibrillation Hospital course: Ms. Hebert is a 67 year old female - Time Spent with Patient Total time spent providing and/or coordinating discharge services: Date of admission: 09/14/17 17:32 Primary care physician: Maribel Fernandez - Constitutional Vitals: Temp Pulse Resp BP Pulse Ox 98.2 F 62 18 113/69 94 09/15/17 07:20 09/15/17 10:25 09/15/17 07:20 09/15/17 10:25 09/15/17 07:20 - Attending Attestation I examined this patient and my medical decision-making was reviewed with the Resident Physician on 09/15/17. I agree with the documented findings, disposition and treatment plan as described except to the extent set forth below. Ms Hebert has been admitted for dehydration related to volume loss from chronic diarrhea as well as dizziness. She has been volume resuscitated and magnesium has been replaced. She is afebrile and is ready for discharge home. Exam alert. Comfortable Mucus membranes dry Heart reg Lungs clear Abd soft Plan D/C home today Meclizine Follow with PCP.
[2017-09-15] MEDS: cefTRIAXone 1,000 MG in Water for inj. (sterile) 20 ML 10 ML IVP SCH (09:11)
[2017-09-15 10:26] VITALS: BP 113/69
--- NOTE | 2017-09-17 07:55 | Electrocardiograph Report ---
[place] [id number] Test Date: 2017-09-11 Pat Name: Aisha Hebert Department: 104 Room: [facility] Gender: F [employer]: : 1950 Requested By: Billy Hoover Order Number: [id number] Reading MD: Klever Forde DO Measurements Intervals [place] Rate: 62 P: -9 ND: 180 QRS: 11 QRSD: 86 T: 49 QT: 433 QTc: 439 Interpretive Statements SINUS RHYTHM Electronically Signed On 09-17-2017 7:54:05 EST by Klever Forde DO
== END 2017-09-15 15:06 | disposition home or self-care (01) | DRG 392 ==
LOC: EMEROO 06:50 → 3NENU 06:50 → SUATTDRO 09:54 → 3NENU 10:22
PROVIDERS: ADMIT Internal Medicine; ATTEND Internal Medicine

== ENCOUNTER 2017-10-29 13:58 | Inpatient (IN) ==
[2017-10-29] MEDS ORDERED: methylPREDNISolone 125 MG/2 ML VIAL IVP ONE (14:00)
--- NOTE | 2017-10-29 14:00 | Emergency Department Note ---
Disposition Clinical Impression: Acute exacerbation of chronic obstructive airways disease, NSTEMI (non-ST elevated myocardial infarction), CHF (congestive heart failure) Disposition: Admitted As Inpatient Condition: Undetermined General Adult HPI - General Chief complaint: ED Shortness of Breath/Dyspnea Stated complaint: Bronchitis - low O2 sats Time Seen by Provider: 10/29/17 13:59 - Related Data Home Medications Medication Instructions Recorded Confirmed Aspirin 81 mg PO DAILY 06/05/16 10/29/17 Metoprolol [Lopressor] 50 mg PO BID 06/05/16 10/29/17 Multivitamin [Multivitamins] 1 cap PO DAILY 06/05/16 10/29/17 Amiodarone [Cordarone] 200 mg PO DAILY 06/27/16 10/29/17 Calcium Carbonate [Calcium] 1,000 mg PO BID 04/28/17 10/29/17 Ferrous Sulfate 325 mg PO DAILY 04/28/17 10/29/17 Alosetron HCl 0.5 mg PO BID 08/19/17 10/29/17 Baclofen [Lioresal] 10 mg PO TID PRN 08/19/17 10/29/17 Albuterol Sulfate [Ventolin Hfa] 2 puff IH Q6H PRN 09/11/17 10/29/17 Beclomethasone Diprop 80mcg [QVAR 1 puff IH BID 09/11/17 10/29/17 80 mcg] BuPROPion XL (24 HR) [Wellbutrin 150 mg PO DAILY 09/11/17 10/29/17 Xl] Azithromycin [Azithromycin 6-Tab 250 mg PO PER PKG DI 10/29/17 10/29/17 Pack] Citalopram [CeleXA] 20 mg PO DAILY 10/29/17 10/29/17 Colestipol HCl [Colestid] 1 gm PO BID 10/29/17 10/29/17 Cyanocobalamin (Vitamin B-12) 1,000 mcg PO DAILY 10/29/17 10/29/17 [Vitamin B12] Hyoscyamine SL [Levsin SL] 0.125 mg SL Q4H PRN 10/29/17 10/29/17 Magnesium Oxide [Mag-Ox] 400 mg PO TID 10/29/17 10/29/17 Meclizine [Antivert] 25 mg PO DAILY PRN 10/29/17 10/29/17 Oxygen 1 each .ROUTE AD 10/29/17 10/29/17 Previous Rx's Medication Instructions Recorded Potassium Chloride 20 meq PO DAILY tab.er.prt 07/06/16 Cholecalciferol (D-3) [Vitamin D] 2,000 unit PO DAILY #30 tablet 08/25/17 Allergies Allergy/AdvReac Type Severity Reaction Status Date / Time peanut Allergy Hives Verified 05/16/17 13:35 zinc Allergy Hives Verified 05/16/17 13:35 Sulfa (Sulfonamide AdvReac Mild constipatio Verified 05/16/17 13:35 Antibiotics) n Past Medical History - Past Medical History Medical history: Reports: atrial fibrillation, COPD, coronary artery disease, diabetes, hyperlipidemia, hypertension, myocardial infarction, other Surgical history: Reports: hysterectomy, pacemaker/AICD, other Psychiatric history: Reports: no psych history PATIENT REGISTRATION REPRESENTATIVE history: Reports: no PATIENT REGISTRATION REPRESENTATIVE history - Social History Smoking Status: Never smoker Smokeless Tobacco Status: No Alcohol use: Reports: none Drug use: Reports: none Course Vital Signs Temperature 98.3 F 10/29/17 13:59 Pulse Rate 86 10/29/17 13:59 Respiratory Rate 22 10/29/17 13:59 Blood Pressure 139/92 10/29/17 13:59 O2 Sat by Pulse Oximetry 90 10/29/17 13:59 Temperature 97.8 F 10/30/17 04:00 Pulse Rate 66 10/30/17 04:00 Respiratory Rate 16 10/30/17 04:00 Blood Pressure 110/79 10/30/17 04:00 O2 Sat by Pulse Oximetry 92 10/30/17 04:00 Oxygen Delivery Oxygen Delivery Nasal Cannula Medical Decision Making - Lab Data Result diagrams: 10/30/17 00:07 10/30/17 00:07 Lab Results 10/29/17 10/29/17 10/29/17 Range/Units 14:08 14:08 14:08 WBC 13.2 H (4.3-11.1) K/mcL RBC 3.71 L (3.82-4.97) M/mcL Hgb 11.0 L (11.5-15.4) g/dL Hct 35.7 (35.3-44.9) % MCV 96.2 (83.0-100.0) fL MCH 29.6 (28.0-33.3) pg MCHC 30.8 L (31.6-35.5) g/dL RDW 15.6 H (11.5-14.5) % Plt Count 336 (140-400) K/mcL MPV 10.4 (9.4-12.4) fL Immature Gran % 0.4 (0-4) % Seg Neutrophils % 82.6 % Lymphocytes % 11.2 % Monocytes % 4.6 % Eosinophils % 0.5 % Basophils % 0.7 % Neutrophils # 10.9 H (1.6-8.9) K/mcL Lymphocytes # 1.5 (0.6-4.6) K/mcL Monocytes # 0.6 (0.0-1.3) K/mcL Eosinophils # 0.1 (0.0-0.6) K/mcL Basophils # 0.1 (0.0-0.2) K/mcL PT 17.1 H (9.4-12.1) Seconds INR 1.6 APTT (26.0-36.0) Seconds Sodium 144 (136-145) mEq/L Potassium 3.3 L (3.5-5.1) mEq/L Chloride 114 H (98-107) mEq/L Carbon Dioxide 18 L (23-29) mEq/L BUN 16 (8-23) mg/dL Creatinine 1.15 (0.60-1.20) mg/dL Est GFR ( Amer) 57 L (> 60) Est GFR (Non-Af Amer) 47 L (> 60) BUN/Creatinine Ratio 14 (6-26) Glucose 145 H (70-105) mg/dL Calculated Osmolality 302 H (280-300) Calcium 7.0 L (8.6-10.3) mg/dL Troponin I 0.14 H* (< 0.04) ng/mL 10/29/17 10/29/17 Range/Units 15:58 20:02 WBC (4.3-11.1) K/mcL RBC (3.82-4.97) M/mcL Hgb (11.5-15.4) g/dL Hct (35.3-44.9) % MCV (83.0-100.0) fL MCH (28.0-33.3) pg MCHC (31.6-35.5) g/dL RDW (11.5-14.5) % Plt Count (140-400) K/mcL MPV (9.4-12.4) fL Immature Gran % (0-4) % Seg Neutrophils % % Lymphocytes % % Monocytes % % Eosinophils % % Basophils % % Neutrophils # (1.6-8.9) K/mcL Lymphocytes # (0.6-4.6) K/mcL Monocytes # (0.0-1.3) K/mcL Eosinophils # (0.0-0.6) K/mcL Basophils # (0.0-0.2) K/mcL PT 16.9 H (9.4-12.1) Seconds INR 1.6 APTT 34.2 (26.0-36.0) Seconds Sodium (136-145) mEq/L Potassium (3.5-5.1) mEq/L Chloride (98-107) mEq/L Carbon Dioxide (23-29) mEq/L BUN (8-23) mg/dL Creatinine (0.60-1.20) mg/dL Est GFR ( Amer) (> 60) Est GFR (Non-Af Amer) (> 60) BUN/Creatinine Ratio (6-26) Glucose (70-105) mg/dL Calculated Osmolality (280-300) Calcium (8.6-10.3) mg/dL Troponin I 0.18 H* (< 0.04) ng/mL Attestation Statement - Attestation Attestation: I examined this patient and my medical decision-making was reviewed with the Resident Physician. I agree with the documented findings, disposition and treatment plan as described except to the extent set forth below. [id number] time provided Patient arrives complaining of dyspnea. She was brought in by EMS from home. She is not home oxygen dependent. She feels better after neb therapy administered by EMS. Appears mildly dyspneic on exam. Evaluated in conjunction with the resident physician
[2017-10-29] MEDS ORDERED: Ipratropium/Albuterol Neb 3 ML IH ONE (14:08)
--- NOTE | 2017-10-29 14:09 | Emergency Department Note ---
Disposition Clinical Impression: Acute exacerbation of chronic obstructive airways disease, NSTEMI (non-ST elevated myocardial infarction) CHF (congestive heart failure) Qualifiers: Heart failure type: combined systolic and diastolic Heart failure chronicity: acute on chronic Qualified Code(s): I50.43 - Acute on chronic combined systolic (congestive) and diastolic (congestive) heart failure Disposition: Admitted As Inpatient Condition: Undetermined Referrals: Sloane Murphy DO [Primary Care Provider] - Forms: ED Satisfaction Letter Time of Disposition: 15:21 SOB HPI - General Chief Complaint: ED Shortness of Breath/Dyspnea Stated Complaint: Bronchitis - low O2 sats Time Seen by Provider: 10/29/17 13:59 Source: patient, EMS Mode of arrival: EMS Limitations: no limitations Nursing Notes Reviewed: Yes Vital Signs Reviewed: Yes - History of Present Illness 67-year-old female history of COPD not on oxygen or with any breathing treatments at home arrives to the emergency department after being diagnosed with bronchitis one day ago. She was prescribed azithromycin which she started today. The patient states that she is expressing worsening shortness of breath. She is also tenderness and some chest tightness as well. The patient denies any unilateral leg swelling, hemoptysis, history of DVT or PE, recent immobilizations or recent surgeries. The patient called EMS for her dyspnea. They noted her O2 saturations were roughly 82-83% on room air. The patient was in mild respiratory distress at that time. They administered a breathing treatment in route which brought the patient's O2 saturations back up to baseline she states she is feeling much better. She has diffuse wheezing on auscultation. She denies any other complaints at this time. - Related Data Home Medications Medication Instructions Recorded Confirmed Aspirin 81 mg PO DAILY 06/05/16 09/11/17 Metoprolol [Lopressor] 50 mg PO BID 06/05/16 09/11/17 Multivitamin [Multivitamins] 1 cap PO DAILY 06/05/16 09/11/17 Amiodarone [Cordarone] 200 mg PO DAILY 06/27/16 09/11/17 Calcium Carbonate [Calcium] 1,000 mg PO BID 04/28/17 09/11/17 Ferrous Sulfate 325 mg PO DAILY 04/28/17 09/11/17 Omeprazole [PriLOSEC] 20 mg PO DAILY 04/28/17 09/11/17 Alosetron HCl 0.5 mg PO BID 08/19/17 09/11/17 Baclofen [Lioresal] 10 mg PO TID 08/19/17 09/11/17 Albuterol Sulfate [Ventolin Hfa] 2 puff IH Q6H PRN 09/11/17 09/11/17 Beclomethasone Diprop 80mcg [QVAR 1 puff IH BID 09/11/17 09/11/17 80 mcg] BuPROPion XL (24 HR) [Wellbutrin 150 mg PO DAILY 09/11/17 09/11/17 Xl] Furosemide [Lasix] 40 mg PO DAILY PRN 09/11/17 09/11/17 Previous Rx's Medication Instructions Recorded Potassium Chloride 20 meq PO DAILY tab.er.prt 07/06/16 Cholecalciferol (D-3) [Vitamin D] 2,000 unit PO DAILY #30 tablet 08/25/17 Magnesium Oxide [Mag-Ox] 400 mg PO BID #60 tablet 08/25/17 Meclizine [Antivert] 25 mg PO TID PRN #12 tablet 09/15/17 Allergies Allergy/AdvReac Type Severity Reaction Status Date / Time peanut Allergy Hives Verified 05/16/17 13:35 zinc Allergy Hives Verified 05/16/17 13:35 Sulfa (Sulfonamide AdvReac Mild constipatio Verified 05/16/17 13:35 Antibiotics) n All systems ED: reviewed and negative except as stated. Constitutional: Reports: chills, weakness. Denies: fever ENT ED: Denies: congestion Cardiovascular: Denies: chest pain, dyspnea on exertion, edema Respiratory: Reports: cough, dyspnea, wheezes, sputum production. Denies: hemoptysis, stridor Gastrointestinal: Denies: abdominal pain, nausea, vomiting Genitourinary: Denies: urgency, dysuria Musculoskeletal: Denies: back pain, neck pain, arthralgia, myalgia Integumentary: Denies: rash Neurological: Reports: weakness. Denies: headache, numbness, paresthesias, confusion Past Medical History - Past Medical History Attestation: Yes The following information was validated with the patient. Source: patient, old records reviewed Medical history: Reports: atrial fibrillation, COPD, coronary artery disease, diabetes, hyperlipidemia, hypertension, myocardial infarction, other Surgical history: Reports: hysterectomy, pacemaker/AICD, other Psychiatric history: Reports: no psych history ICD 9 CODER history: Reports: no ICD 9 CODER history - Social History Smoking Status: Never smoker Smokeless Tobacco Status: No Alcohol use: Reports: none Drug use: Reports: none Physical Exam - General Limitations: no limitations General appearance: alert, in no apparent distress - Head Head exam: atraumatic, normocephalic, normal inspection - Eye Eye exam: Present: normal appearance, PERRL, EOMI - ENT ENT exam: normal exam, normal oropharynx, mucous membranes moist - Neck Neck exam: Present: normal inspection, full ROM, trachea midline - Chest Chest inspection: Present: normal inspection, symmetric chest wall rise - Respiratory Respiratory exam: Present: wheezes (Bilateral lung urias) - Cardiovascular Cardiovascular exam: Present: regular rate, normal rhythm, normal heart sounds - Abdominal Exam Abdominal exam: Present: soft, Non-Tender. Absent: tenderness, distention, guarding, rebound, rigidity - Extremities Exam Extremities exam: Present: normal inspection, full ROM. Absent: tenderness, pedal edema - Neurological Exam Neurological exam: Present: alert, oriented X3 - Skin Skin exam: Present: warm, dry, intact, normal color Course Vital Signs Temperature 98.3 F 10/29/17 13:59 Pulse Rate 86 10/29/17 13:59 Respiratory Rate 22 10/29/17 13:59 Blood Pressure 139/92 10/29/17 13:59 O2 Sat by Pulse Oximetry 90 10/29/17 13:59 Temperature 98.3 F 10/29/17 13:59 Pulse Rate 86 10/29/17 13:59 Respiratory Rate 24 10/29/17 14:26 Blood Pressure 139/92 10/29/17 13:59 O2 Sat by Pulse Oximetry 93 10/29/17 14:26 Oxygen Delivery Oxygen Delivery Aerosol Mask Shortness of Breath/Dyspnea - MDM Narrative Medical decision making narrative: Workup in the emergency department demonstrates findings of vascular congestion likely pulmonary edema as well as an elevated troponin. The patient has no EKG changes. This shortness of breath the patient may be experiencing is likely a component of COPD as well as CHF exacerbation but also concerning for ACS. We will begin the patient on heparin. She denies any active bleeding, melena, hematochezia. We will admit the patient to the hospital at this time. She was administered nitroglycerin as well as breathing treatments and steroids for her respiratory status. She is resting comfortably in the room at this time. Patient made aware and agree to plan of care. The patient was also administered aspirin here in the emergency department. Patient was accepted by Dr. Florez. - Lab Data Lab results reviewed: Yes I reviewed the patient's lab results. Result diagrams: 10/29/17 14:08 10/29/17 14:08 Lab Results 10/29/17 10/29/17 10/29/17 Range/Units 14:08 14:08 14:08 WBC 13.2 H (4.3-11.1) K/mcL RBC 3.71 L (3.82-4.97) M/mcL Hgb 11.0 L (11.5-15.4) g/dL Hct 35.7 (35.3-44.9) % MCV 96.2 (83.0-100.0) fL MCH 29.6 (28.0-33.3) pg MCHC 30.8 L (31.6-35.5) g/dL RDW 15.6 H (11.5-14.5) % Plt Count 336 (140-400) K/mcL MPV 10.4 (9.4-12.4) fL Immature Gran % 0.4 (0-4) % Seg Neutrophils % 82.6 % Lymphocytes % 11.2 % Monocytes % 4.6 % Eosinophils % 0.5 % Basophils % 0.7 % Neutrophils # 10.9 H (1.6-8.9) K/mcL Lymphocytes # 1.5 (0.6-4.6) K/mcL Monocytes # 0.6 (0.0-1.3) K/mcL Eosinophils # 0.1 (0.0-0.6) K/mcL Basophils # 0.1 (0.0-0.2) K/mcL PT 17.1 H (9.4-12.1) Seconds INR 1.6 Sodium 144 (136-145) mEq/L Potassium 3.3 L (3.5-5.1) mEq/L Chloride 114 H (98-107) mEq/L Carbon Dioxide 18 L (23-29) mEq/L BUN 16 (8-23) mg/dL Creatinine 1.15 (0.60-1.20) mg/dL Est GFR ( Amer) 57 L (> 60) Est GFR (Non-Af Amer) 47 L (> 60) BUN/Creatinine Ratio 14 (6-26) Glucose 145 H (70-105) mg/dL Calculated Osmolality 302 H (280-300) Calcium 7.0 L (8.6-10.3) mg/dL Troponin I 0.14 H* (< 0.04) ng/mL - Radiology Data Radiology results reviewed: Yes I reviewed the patient's radiology results. Chest X-Ray 10/29/17 14:00 IMPRESSION: 1. Cardiomegaly with vascular congestion and bilateral infiltrates likely representing edema and congestive failure. D/ / Morgan Enrique MD / Morgan Enrique MD Interpreting Provider: Morgan Enrique MD - EKG Data EKG attestation: Yes I reviewed and interpreted this EKG. EKG results narrative: Heart rate 84 bpm. Normal sinus rhythm. No ST elevation or ST depression noted.
[2017-10-29 14:25] LABS: Basophils # 0.1 K/mcL (0.0-0.2); Basophils % 0.7 %; Eosinophils # 0.1 K/mcL (0.0-0.6); Eosinophils % 0.5 %; Hematocrit 35.7 % (35.3-44.9); Immature Granulocytes % 0.4 % (0-4); Lymphocytes # 1.5 K/mcL (0.6-4.6); Lymphocytes % 11.2 %; Mean Corpuscular HGB Conc 30.8 g/dL (31.6-35.5); Mean Corpuscular Hemoglobin 29.6 pg (28.0-33.3); Mean Corpuscular Volume 96.2 fL (83.0-100.0); Mean Platelet Volume 10.4 fL (9.4-12.4); Monocytes # 0.6 K/mcL (0.0-1.3); Monocytes % 4.6 %; Neutrophils # 10.9 K/mcL (1.6-8.9); Platelet Count 336 K/mcL (140-400); Red Blood Count 3.71 M/mcL (3.82-4.97); Red Cell Distribution Width 15.6 % (11.5-14.5); Segmented Neutrophils % 82.6 %
[2017-10-29 14:29] LABS: INR 1.6; Prothrombin Time 17.1 Seconds (9.4-12.1)
[2017-10-29 14:57] LABS: Troponin I 0.14 ng/mL (< 0.04)
[2017-10-29 15:00] LABS: Potassium 3.3 mEq/L (3.5-5.1)
[2017-10-29] MEDS ORDERED: Nitroglycerin 0.4 MG TAB.SUBL SL PRN (15:05)
[2017-10-29] MEDS ORDERED: Aspirin 325 MG TABLET PO ONE (15:05)
[2017-10-29] MEDS ORDERED: *HR* Heparin 5,000 UNIT/ML VIAL IVP PRN ×2 (15:12)
[2017-10-29] MEDS ORDERED: *HR* Heparin 5,000 UNIT/ML VIAL IVP ONE (15:12)
[2017-10-29] MEDS ORDERED: Heparin 25,000 UNIT/500 ML D5W 25,000 UNIT/500 ML BAG IVC SCH (15:15)
[2017-10-29 16:15] LABS: INR 1.6; Prothrombin Time 16.9 Seconds (9.4-12.1)
[2017-10-29 16:17] LABS: Activated Partial Thrombo Time 34.2 Seconds (26.0-36.0)
[2017-10-29] MEDS ORDERED: Hyoscyamine SL 0.125 MG TAB.SUBL SL PRN (18:30)
[2017-10-29] MEDS ORDERED: Baclofen 10 MG TABLET PO PRN (18:30)
[2017-10-29] MEDS ORDERED: Naloxone 0.4 MG/ML INJ IVP PRN ×2 (18:46→20:26)
--- NOTE | 2017-10-29 19:04 | Internal Med History&Physical ---
Date of Encounter: 10/29/17 Time of Encounter: 18:58 Internal Medicine - H&P: HPI Chief complaint: CHEST PAIN; NSTEMI Admitted From: Home Plans for Post Hospital Care: Home History of present illness: Ms. Hebert is a 67 year old female with a PMH of PAF, COPD, coronary artery disease, diabetes, hyperlipidemia, hypertension, and myocardial infarction x2. She presents today with shortness of breath and midsternal, non- radiating chest pain/pressure which worsens with exertion and improves with rest. She reports that the chest pain/pressure began yesterday. She denies any nausea, or diaphoresis. Additionally, she is denying unilateral leg swelling , hemoptysis, history of DVT or PE, recent immobilizations or recent surgeries. W/u shows troponin elevation at 0.14 and a CXR with cardiomegally and vascular congestion with B/L infiltrates likely representing edema. Past Med Surg Social Fam HX - Past Medical History Medical history: atrial fibrillation, COPD, coronary artery disease, diabetes, hyperlipidemia, hypertension, myocardial infarction, other Psychiatric history: no psych history - Past Surgical History Surgical History: hysterectomy, knee replacement, AICD - Social History Smoking Status: Never smoker Smokeless Tobacco Status: No Alcohol use: none Drug use: none - Family History Mother Living Status: Hx Family Cardiac Disorders: Yes Hx Family Endocrine Disorder: Yes Internal Medicine - H&P: Meds Aspirin 81 mg PO DAILY 06/05/16 [History] Metoprolol [Lopressor] 50 mg PO BID 06/05/16 [History] Multivitamin [Multivitamins] 1 cap PO DAILY 06/05/16 [History] Amiodarone [Cordarone] 200 mg PO DAILY 06/27/16 [History] Potassium Chloride 20 meq PO DAILY tab.er.prt 07/06/16 [Rx] Calcium Carbonate [Calcium] 1,000 mg PO BID 04/28/17 [History] Ferrous Sulfate 325 mg PO DAILY 04/28/17 [History] Alosetron HCl 0.5 mg PO BID 08/19/17 [History] Baclofen [Lioresal] 10 mg PO TID PRN 08/19/17 [History] Cholecalciferol (D-3) [Vitamin D] 2,000 unit PO DAILY #30 tablet 08/25/17 [Rx] Albuterol Sulfate [Ventolin Hfa] 2 puff IH Q6H PRN 09/11/17 [History] Beclomethasone Diprop 80mcg [QVAR 80 mcg] 1 puff IH BID 09/11/17 [History] BuPROPion XL (24 HR) [Wellbutrin Xl] 150 mg PO DAILY 09/11/17 [History] Azithromycin [Azithromycin 6-Tab Pack] 250 mg PO PER PKG DI 10/29/17 [History] Citalopram [CeleXA] 20 mg PO DAILY 10/29/17 [History] Colestipol HCl [Colestid] 1 gm PO BID 10/29/17 [History] Cyanocobalamin (Vitamin B-12) [Vitamin B12] 1,000 mcg PO DAILY 10/29/17 [History ] Hyoscyamine SL [Levsin SL] 0.125 mg SL Q4H PRN 10/29/17 [History] Magnesium Oxide [Mag-Ox] 400 mg PO TID 10/29/17 [History] Meclizine [Antivert] 25 mg PO DAILY PRN 10/29/17 [History] Oxygen 1 each .ROUTE AD 10/29/17 [History] 3 Allergy/AdvReac Type Severity Reaction Status Date / Time peanut Allergy Hives Verified 05/16/17 13:35 zinc Allergy Hives Verified 05/16/17 13:35 Sulfa (Sulfonamide AdvReac Mild constipatio Verified 05/16/17 13:35 Antibiotics) n All Systems PM: A 10-system review of systems was performed and is negative for pertinent findings except as documented above in the HPI. Review of systems: REVIEW OF SYSTEMS GENERAL: Negative for any nausea, vomiting, fevers, chills, or weight loss. NEUROLOGIC: Negative for any blurry vision, blind spots, double vision, facial asymmetry, dysphagia, dysarthria, hemiparesis, hemisensory deficits, vertigo, ataxia. HEENT: Negative for any head trauma, neck trauma, neck stiffness, photophobia, phonophobia, sinusitis, rhinitis. CARDIAC: Negative for any paroxysmal nocturnal dyspnea, peripheral edema, palpitations, tachycardia. Positive for Chest pain and shortness of breath PULMONARY: Negative for any wheezing, COPD. GASTROINTESTINAL: Negative for any abdominal pain, nausea, vomiting, bright red blood per rectum, melena. GENITOURINARY: Negative for any dysuria, hematuria, incontinence. INTEGUMENTARY: Negative for any rashes, cuts, insect bites. HEMATOLOGIC: Negative for any abnormal bruising, frequent infections or bleeding. - Constitutional Vitals: Temp Pulse Resp BP Pulse Ox 97.9 F 78 16 137/93 92 10/29/17 16:41 10/29/17 16:41 10/29/17 16:41 10/29/17 16:41 10/29/17 17:43 General appearance: Present: cooperative, A&O X 3, no acute distress, answers questions appropriately Exam: PHYSICAL EXAMINATION: GENERAL: The patient is a well-developed, well-nourished male in no apparent distress. He is alert and oriented x3. HEENT: Head is normocephalic and atraumatic. Extraocular muscles are intact. Pupils are equal, round, and reactive to light and accommodation. NECK: Supple. No carotid bruits. No lymphadenopathy or thyromegaly. LUNGS: Clear to auscultation. HEART: Regular rate with irregular rhythm without murmur. ABDOMEN: Soft, nontender, and nondistended. Positive bowel sounds. No hepatosplenomegaly was noted. EXTREMITIES: Without any swelling, tenderness or pain. Radial pulses palpable bilaterally upper and lower NEUROLOGIC: No facial droop or slurred speech SKIN: No ulceration, rashes or lesions Internal Med - H&P Results - Labs CBC & Chem 7: 10/29/17 14:08 10/29/17 14:08 - EKG Data -: EKG Interpreted by Myself - EKG Data EKG comments: NSR rate of 84 no ischemic changes noted 10/29/17 19:08 - Assessment and plan (1) NSTEMI (non-ST elevated myocardial infarction) Current Visit: Yes Status: Acute Assessment and plan: ASSESSMENT: - Chest pain/pressure due to NSTEMI. Presents today with dyspnea and chest pressure. Initial troponin of 0.14. Most recent echo show a preserved EF and MLV Diastolic dysfunction. CXR show cardiomegaly and pulmonary vascular congestion. Prior h/o MN x2 no stents. PLAN: - cardiac enzymes x 2 q 6 hr - ASA - Metoprolol at home dose - O2 by NC to keep SpO2 greater than 92% - CBCD, BMP in AM - Fasting lipids - Resume home medications - Heparin gtt - 2D Echo - Cardiology consult- Cardiology will see in consultation (2) PNA (pneumonia) Current Visit: Yes Status: Suspected Assessment and plan: 2-days of progressive dyspnea. Was recently tx for bronchitis CXR show b/l infiltrates and vascular congestion Has a mild leukocytosis. Given recent Dx and tx for bronchitis start ABX Levaquin 500mg IVPD QD Resume bronchodilators Qualifiers: Qualified Code(s): J18.9 - Pneumonia, unspecified organism (3) (HFpEF) heart failure with preserved ejection fraction Current Visit: Yes Status: Acute Assessment and plan: CXR shows cardiomegally with vascular congestion and B/L infiltrates likely representing pulmonary edema. Patient presents today with shortness of breath. Was found to have NSTEMI with a trop of 0.14 -consult cardiology -TTE -serial troponins -lasix -on RA but PRN nasal canula as needed -continuous tele and spo2 monitoring (4) Leukocytosis Current Visit: Yes Status: Acute Assessment and plan: WBC of 13.2. Etiology unclear, CXR shows b/l infiltrates and vascular congestion likely represent pulmonary edema, however, there could be an underlying PNA. The patient appears stable on room air and is in no distress. I will withhold starting IV ABX at this time. CBCD in the morning. Qualifiers: Leukocytosis type: other Qualified Code(s): D72.828 - Other elevated white blood cell count (5) CAD (coronary artery disease) Current Visit: Yes Status: Acute Assessment and plan: Continue Aspirin, BB Qualifiers: Coronary Disease-Associated Artery/Lesion type: [place] artery [place] vs. transplanted heart: [place] heart Associated angina: without angina Qualified Code(s): I25.10 - Atherosclerotic heart disease of [place] coronary artery without angina pectoris (6) Elevated troponin Current Visit: No Status: Acute (7) Diabetes Current Visit: Yes Status: Chronic Assessment and plan: Sliding scale insulin coverage Qualifiers: Diabetes mellitus type: type 2 Diabetes mellitus manager long term care insulin use: with manager long term care use Diabetes mellitus complication status: with unspecified complications Qualified Code(s): E11.8 - Type 2 diabetes mellitus with unspecified complications; Z79.4 - medical terminologist (current) use of insulin (8) PAF (paroxysmal atrial fibrillation) Current Visit: Yes Status: Chronic Assessment and plan: H/o PAF, per telemetry appears to be sinus arrhythmia. Continue amiodarone (9) DVT prophylaxis Current Visit: Yes Status: Acute Assessment and plan: Heparin gtt - Time Spent With Patient Total time spent is greater than 50% in coordination of care (as documented) at patient's floor/unit and/or counseling patient: Greater than 35 minutes
[2017-10-29] MEDS ORDERED: Dextrose Gel 15 GM/37.5 ML TUBE PO PRN ×2 (20:31)
[2017-10-29] MEDS ORDERED: *HR* Dextrose 50 % in Water (Syg) 50 ML SYRINGE IVP PRN (20:31)
[2017-10-29] MEDS ORDERED: D5% in Water 1,000 ML IVC PRN (20:31)
[2017-10-29] MEDS ORDERED: Beclomethasone 80mcg MDI IH SCH (21:00)
[2017-10-29] MEDS: Magnesium Oxide 400 MG TABLET PO SCH (21:35)
[2017-10-29] MEDS: Furosemide 20 MG/2 ML VIAL IVP SCH (21:36)
[2017-10-29] MEDS: Levofloxacin 500 MG/100 ML 500 MG/100 ML BAG IVPB SCH (21:41)
[2017-10-29] MEDS: ALOSETRON HCL 0.5 MG PO SCH (21:42)
[2017-10-29] MEDS: Colestipol Hcl [Colestid] 1 GM PO SCH (21:42)
[2017-10-29] MEDS: Insulin LISPRO 300 UNITS/3 ML VIAL SQ SCH (22:19)
[2017-10-29] MEDS: Beclomethasone 80mcg MDI IH SCH (22:50)
[2017-10-30 00:30] LABS: Hemoglobin 10.3 g/dL (11.5-15.4); Mean Corpuscular HGB Conc 31.2 g/dL (31.6-35.5); Mean Platelet Volume 10.6 fL (9.4-12.4); Platelet Count 277 K/mcL (140-400); Red Blood Count 3.55 M/mcL (3.82-4.97); Red Cell Distribution Width 15.5 % (11.5-14.5)
[2017-10-30 00:49] LABS: Potassium 3.9 mEq/L (3.5-5.1)
[2017-10-30] MEDS: Beclomethasone 80mcg MDI IH SCH ×2 (07:47→20:05)
--- NOTE | 2017-10-30 08:58 | Cardiology Consult Note ---
Date of Encounter: 10/30/17 Time of Encounter: 08:56 Assessment and Plan (1) Atrial fibrillation Current Visit: No Status: Chronic Paroxysmal atrial flutter ablation currently in normal sinus rhythm unable to tolerate anticoagulation due to previous alveolar hemorrhage. She continues to be on aspirin for stroke risk reduction. Last echocardiogram shows a preserved ejection fraction in April 2017 Qualifiers: Atrial fibrillation type: paroxysmal Qualified Code(s): I48.0 - Paroxysmal atrial fibrillation (2) Elevated troponin Current Visit: No Status: Acute Elevated troponins the peak of 0.18 currently on the downtrend at 0.14 likely demand ischemia from bronchitis. Left heart catheter 2 years ago showing patent coronary vessels with an ejection fraction reserved on echo April 2017 and no regional wall motion abnormalities. Chest x-ray suggestive of pulmonary edema however less likely as the patient has a productive cough. Will obtain BNP to rule out cardiac etiology for chest x-ray findings. If elevated will consider further testing. Discussion w patient/family: The assessment and plan as outlined above was discussed with the patient and/or family members who expressed understanding and agreement. All questions were answered. Thank you for involving us in the care of your patient. Please call with any questions. History of Present Illness Consult date: 10/30/17 Consult reason: Elevated troponins Chief complaint: Cough History of present illness: Ms. Hebert is a 67 year old female with history of diabetes, hyperlipidemia, hypertension recent left heart catheter with patent coronary vessels and a preserved ejection fraction April 2017. She has a history of paroxysmal atrial fibrillation currently in sinus rhythm however not able to tolerate anticoagulation currently only on aspirin. On presentation she has been complaining of a reductive cough pain in her chest wall worse with deep inspiration and cough. Mild elevation in troponins currently on the downtrend at 0.14. Past Med Surg Social Fam HX - Past Medical History Medical history: atrial fibrillation, COPD, coronary artery disease, diabetes, hyperlipidemia, hypertension, myocardial infarction, other Psychiatric history: no psych history - Past Surgical History Surgical History: hysterectomy, pacemaker/AICD, other - Social History Smoking Status: Never smoker Smokeless Tobacco Status: No Alcohol use: none Drug use: none - Family History Mother Living Status: Hx Family Cardiac Disorders: Yes Hx Family Endocrine Disorder: Yes Medications and Allergies Aspirin 81 mg PO DAILY 06/05/16 [History] Metoprolol [Lopressor] 50 mg PO BID 06/05/16 [History] Multivitamin [Multivitamins] 1 cap PO DAILY 06/05/16 [History] Amiodarone [Cordarone] 200 mg PO DAILY 06/27/16 [History] Potassium Chloride 20 meq PO DAILY tab.er.prt 07/06/16 [Rx] Calcium Carbonate [Calcium] 1,000 mg PO BID 04/28/17 [History] Ferrous Sulfate 325 mg PO DAILY 04/28/17 [History] Alosetron HCl 0.5 mg PO BID 08/19/17 [History] Baclofen [Lioresal] 10 mg PO TID PRN 08/19/17 [History] Cholecalciferol (D-3) [Vitamin D] 2,000 unit PO DAILY #30 tablet 08/25/17 [Rx] Albuterol Sulfate [Ventolin Hfa] 2 puff IH Q6H PRN 09/11/17 [History] Beclomethasone Diprop 80mcg [QVAR 80 mcg] 1 puff IH BID 09/11/17 [History] BuPROPion XL (24 HR) [Wellbutrin Xl] 150 mg PO DAILY 09/11/17 [History] Azithromycin [Azithromycin 6-Tab Pack] 250 mg PO PER PKG DI 10/29/17 [History] Citalopram [CeleXA] 20 mg PO DAILY 10/29/17 [History] Colestipol HCl [Colestid] 1 gm PO BID 10/29/17 [History] Cyanocobalamin (Vitamin B-12) [Vitamin B12] 1,000 mcg PO DAILY 10/29/17 [History ] Hyoscyamine SL [Levsin SL] 0.125 mg SL Q4H PRN 10/29/17 [History] Magnesium Oxide [Mag-Ox] 400 mg PO TID 10/29/17 [History] Meclizine [Antivert] 25 mg PO DAILY PRN 10/29/17 [History] Oxygen 1 each .ROUTE AD 10/29/17 [History] 3 Allergy/AdvReac Type Severity Reaction Status Date / Time peanut Allergy Hives Verified 05/16/17 13:35 zinc Allergy Hives Verified 05/16/17 13:35 Sulfa (Sulfonamide AdvReac Mild constipatio Verified 05/16/17 13:35 Antibiotics) n All Systems Review: The remainder of the systems were reviewed and are negative Physical Examination Vital Signs, Last 4 Hours Temp Pulse Resp BP Pulse Ox 10/30/17 07:49 18 94 10/30/17 07:45 97.9 F 75 14 132/73 89 General: Conversant, No Apparent Distress HEENT: Atraumatic, Normocephaly, Mucus Membranes Moist Neck: No JVD, Normal carotid pulses Cardiac: Reg Rate and Rhythm, Normal S1 and S2, No Murmur Lungs: Normal Breath Sounds, No Wheeze, Rales, Rhonchi Neuro: Alert and responsive, No focal deficits noted Abdomen: Soft, Non-Tender Skin: No rashes noted on visualized skin Musculoskeletal: No Chest Wall Tenderness Extremities: No Clubbing, No Cyanosis, No Edema, Normal Pulses Results 10/30/17 00:07 10/30/17 00:07 Lab Results 10/30/17 10/30/17 10/30/17 00:07 00:07 00:07 WBC 7.4 Hgb 10.3 L Hct 33.0 L Plt Count 277 APTT 37.6 H Sodium Potassium Chloride Carbon Dioxide BUN Creatinine Glucose Calcium Magnesium Troponin I 0.14 H* 10/30/17 10/30/17 10/30/17 00:07 00:07 07:45 WBC Hgb Hct Plt Count APTT 44.0 H Sodium 144 Potassium 3.9 Chloride 114 H Carbon Dioxide 22 L BUN 21 Creatinine 1.41 H Glucose 250 H Calcium 7.0 L Magnesium 0.8 L Troponin I Consult Discharge Plan - Plan Referrals: Sloane Murphy DO [Primary Care Provider] -
[2017-10-30] MEDS: Cholecalciferol (D-3) 1,000 UNIT TABLET PO SCH (09:46)
[2017-10-30] MEDS: Multivit/Ca/Min/Fe/FA 1 TAB TABLET PO SCH (09:46)
[2017-10-30] MEDS: Magnesium Oxide 400 MG TABLET PO SCH ×3 (09:46→20:03)
[2017-10-30] MEDS: Aspirin 81 MG TAB.CHEW PO SCH (09:46)
[2017-10-30] MEDS: BuPROPion XL (24 HR) 150 MG TABLET PO SCH (09:46)
[2017-10-30] MEDS: Cyanocobalamin (B-12) 1,000 MCG TABLET PO SCH (09:46)
[2017-10-30] MEDS: *HR* Amiodarone 200 MG TABLET PO SCH (09:46)
[2017-10-30] MEDS: Insulin LISPRO 300 UNITS/3 ML VIAL SQ SCH ×4 (09:47→20:07)
[2017-10-30] MEDS: Furosemide 20 MG/2 ML VIAL IVP SCH ×2 (09:47→20:04)
--- NOTE | 2017-10-30 10:09 | Internal Med Progress Note ---
<Greta Patel - Last Filed: 10/30/17 16:37> Date of Encounter: 10/30/17 Time of Encounter: 09:00 - Assessment and plan (1) Acute on chronic respiratory failure Current Visit: No Status: Acute Assessment and plan: - Acute on chronic respiratory failure with hypoxia. - CT chest today showed patchy ground-glass opacities with crazy paving pattern throughout both lungs. This is likely contribute to patient's current respiratory failure. - Differentials include pulmonary alveolar proteinosis, pulmonary edema, PCP pneumonia or sarcoidosis. - Will start IV Solu-Medrol and scheduled Duoneb. Continue diuresis and supplemental oxygen. - Consider pulmonology consult for further evaluation and recommendations. Qualifiers: Respiratory failure complication: hypoxia Qualified Code(s): J96.21 - Acute and chronic respiratory failure with hypoxia (2) Pulmonary infiltrates Current Visit: Yes Status: Acute Assessment and plan: - see above. (3) Pneumonia Current Visit: No Status: Suspected Assessment and plan: - With leukocytosis 13.2 on initial presentation. - Patient's WBC seems to response to levofloxacin as WBC 7.4 today. - Will obtain sputum culture with gram stain. Qualifiers: Pneumonia type: due to unspecified organism Laterality: bilateral Lung location: unspecified part of lung Qualified Code(s): J18.9 - Pneumonia, unspecified organism (4) Elevated troponin Current Visit: No Status: Acute Assessment and plan: - Elevated troponins (0.14, 0.18, 0.14). - No chest pain at this time. - Per cardiology, likely demand ischemia in the setting of respiratory failure. - Heparin drip had been discontinued given the concern of pulmonary alveolar hemorrhage. - Continue aspirin. (5) (HFpEF) heart failure with preserved ejection fraction Current Visit: Yes Status: Acute Assessment and plan: - Echo on 10/30/17 showed LVEF 60% with moderate LV diastolic dysfunction. - Continue diuresis with IV Lasix. - Strict I/O and daily weight. (6) DERREK (acute kidney injury) Current Visit: No Status: Acute Assessment and plan: - SCr 1.41 worsen compared to SCr < 1.0 at baseline. - May be related to diuretic use. - Given patient still appears hypervolemic, will continue Lasix IV but consider discontinuation if renal function gets worse. - Avoid nephrotoxin. - Continue to monitor renal function and electrolytes. (7) PAF (paroxysmal atrial fibrillation) Current Visit: Yes Status: Chronic Assessment and plan: - Currently in sinus rhythm. - Continue rate control with metoprolol. - No on anticoagulation due history of alveolar hemorrhage. (8) Diabetes Current Visit: Yes Status: Chronic Assessment and plan: - Continue insulin sliding scale and glucose monitoring. Qualifiers: Diabetes mellitus type: type 2 Diabetes mellitus fpc insulin use: with ad terminal makeup operator use Diabetes mellitus complication status: with unspecified complications Qualified Code(s): E11.8 - Type 2 diabetes mellitus with unspecified complications; N18.3 - Chronic kidney disease, stage 3 (moderate); N18.3 - Chronic kidney disease, stage 3 (moderate); Z79.4 - alf (current) use of insulin; Z79.4 - alf (current) use of insulin; Z79.4 - alf ( current) use of insulin; Z79.4 - alf (current) use of insulin (9) DVT prophylaxis Current Visit: Yes Status: Acute Assessment and plan: - EPCD as mechanical DVT prophylaxis. - Subjective Interval history: Patient was seen and examined this morning. Patient still has some cough but reports improvement in breathing and chest pain. Patient denies palpitation, diaphoresis, fever, chills, abdominal pain, nausea, vomiting. - Constitutional Vitals: Temp Pulse Resp BP Pulse Ox 97.9 F 75 18 132/73 94 10/30/17 07:45 10/30/17 07:45 10/30/17 07:49 10/30/17 07:45 10/30/17 07:49 General appearance: Present: cooperative, A&O X 3, no acute distress, answers questions appropriately - Head Head exam: Present: normal inspection - Eye Eye exam: Present: EOMI - Neck Neck exam general surgery: Present: normal inspection, trachea midline - Respiratory Respiratory exam: Present: CTAB - Cardiovascular Cardiovascular exam: Present: RRR, +S1, +S2 - GI/Abdominal GI/Abdominal exam: Present: normal bowel sounds, soft. Absent: tenderness - Extremities Exam Extremities exam: Present: pedal edema (Mild). Absent: cyanotic - Neurological Exam Neurological exam: Present: alert, no focal deficits. Absent: facial droop, speech deficit - Skin Skin exam: Present: dry, warm Internal Medicine: Result - Labs CBC & Chem 7: 10/30/17 00:07 10/30/17 00:07 Labs: Short CBC 10/30/17 Range/Units 00:07 WBC 7.4 (4.3-11.1) K/mcL Hgb 10.3 L (11.5-15.4) g/dL Hct 33.0 L (35.3-44.9) % Plt Count 277 (140-400) K/mcL BMP 10/30/17 00:07 Sodium 144 Potassium 3.9 Chloride 114 H Carbon Dioxide 22 L BUN 21 Creatinine 1.41 H Glucose 250 H Calcium 7.0 L Cardiac Enzymes 10/30/17 Range/Units 00:07 Troponin I 0.14 H* (< 0.04) ng/mL - ABG Interpretation ABG results: PT/INR, D-dimer PT 16.9 Seconds (9.4-12.1) H 10/29/17 15:58 Consult Discharge Plan - Plan Referrals: Sloane Murphy, [Primary Care Provider] - <Lloyd Beach - Last Filed: 10/30/17 18:00> Date of Encounter: 10/30/17 - Assessment and plan (1) Acute on chronic respiratory failure Current Visit: No Status: Acute Qualifiers: Respiratory failure complication: hypoxia Qualified Code(s): J96.21 - Acute and chronic respiratory failure with hypoxia (2) PAF (paroxysmal atrial fibrillation) Current Visit: Yes Status: Chronic (3) CHF (congestive heart failure) Current Visit: Yes Status: Chronic Qualifiers: Heart failure type: combined systolic and diastolic Heart failure chronicity: acute on chronic Qualified Code(s): I50.43 - Acute 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 transplanted heart: enterprise heart Associated angina: without angina Qualified Code(s): I25.10 - Atherosclerotic heart disease of enterprise coronary artery without angina pectoris (6) Diabetes Current Visit: Yes Status: Chronic Qualifiers: Diabetes mellitus type: type 2 Diabetes mellitus fpc insulin use: with ad terminal makeup operator use Diabetes mellitus complication status: with kidney complications Diabetes mellitus complication detail: with chronic kidney disease Chronic kidney disease stage: stage 3 (moderate) Qualified Code(s): E11.22 - Type 2 diabetes mellitus with diabetic chronic kidney disease; N18.3 - Chronic kidney disease, stage 3 (moderate); N18.3 - Chronic kidney disease, stage 3 (moderate); Z79.4 - alf (current) use of insulin; Z79.4 - alf (current) use of insulin; Z79.4 - alf (current) use of insulin; Z79.4 - ad terminal makeup operator (current) use of insulin (7) HTN (hypertension) Current Visit: No Status: Chronic Qualifiers: Hypertension type: essential hypertension Qualified Code(s): I10 - Essential (primary) hypertension - Constitutional Vitals: Temp Pulse Resp BP Pulse Ox 97.9 F 70 15 130/77 90 10/30/17 16:24 10/30/17 16:24 10/30/17 16:24 10/30/17 16:24 10/30/17 16:45 Internal Medicine: Result - Labs CBC & Chem 7: 10/30/17 00:07 10/30/17 00:07 Labs: Short CBC 10/30/17 Range/Units 00:07 WBC 7.4 (4.3-11.1) K/mcL Hgb 10.3 L (11.5-15.4) g/dL Hct 33.0 L (35.3-44.9) % Plt Count 277 (140-400) K/mcL BMP 10/30/17 00:07 Sodium 144 Potassium 3.9 Chloride 114 H Carbon Dioxide 22 L BUN 21 Creatinine 1.41 H Glucose 250 H Calcium 7.0 L Cardiac Enzymes 10/30/17 Range/Units 00:07 Troponin I 0.14 H* (< 0.04) ng/mL - ABG Interpretation ABG results: PT/INR, D-dimer PT 16.9 Seconds (9.4-12.1) H 10/29/17 15:58 - Impressions Impressions Chest CT 10/30/17 12:47 IMPRESSION: 1. 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 Clinical correlation and follow-up studies are recommended. Less likely considerations include pulmonary edema, PCP pneumonia or sarcoidosis. 2. Small left-sided pleural effusion. 3. Enlarged right peritracheal lymph node is most likely reactive in nature. Follow-up chest CT is recommended to ensure stability/resolution in the next 3-4 months. D/ / Luis Antonio Johnson MD / Luis Antonio Johnson MD Interpreting Provider: Luis Antonio Johnson MD - Attending Attestation I examined this patient and my medical decision-making was reviewed with the Resident Physician on 10/30/17. I agree with the documented findings, disposition and treatment plan as described except to the extent set forth below. Ms Hebert is currently admitted for resp failure and presumed CHF. She remains moderate to high risk due to potential for worsening clinical symptoms. Ms Hebert has been coughing up a little blood. CT shows diffuse changes - ? PAP. Diarrhea about the same. No fever or chills. Coughing. Exam alert Mod resp distress at rest Mucus membranes dry Heart tachy Lungs with diffuse rhonchi Abd soft I/P 1. Resp failure 2. Possible PAP Further diagnoses and plan as above.
[2017-10-30] MEDS: Colestipol Hcl [Colestid] 1 GM PO SCH ×2 (10:23→20:05)
[2017-10-30] MEDS: ALOSETRON HCL 0.5 MG PO SCH ×2 (10:23→20:05)
[2017-10-30] MEDS ORDERED: Furosemide 20 MG/2 ML VIAL IVP ONE (12:45)
[2017-10-30] MEDS ORDERED: Albuterol 2.5 MG/3 ML NEBULIZER IH PRN (17:09)
[2017-10-30] MEDS: MethylPREDNISolone 40 MG/ML VIAL IVP SCH (18:04)
[2017-10-30] MEDS: Levofloxacin 500 MG/100 ML 500 MG/100 ML BAG IVPB SCH (20:04)
[2017-10-30] MEDS: Ipratropium/Albuterol Neb 3 ML IH SCH ×2 (20:05→23:59)
[2017-10-30] MEDS: Benzonatate 100 MG CAPSULE PO PRN (22:39)
[2017-10-30 23:04] LABS: Adenovirus Not Detected (Not Detect); Bordetella Pertussis Not Detected (Not Detect); Chlamydophila pneumoniae Not Detected (Not Detect); Coronavirus 229E Not Detected (Not Detect); Coronavirus HKU1 Not Detected (Not Detect); Coronavirus NL63 Not Detected (Not Detect); Coronavirus OC43 Not Detected (Not Detect); Human Metapneumovirus Not Detected (Not Detect); Human Rhinovirus/Enterovirus Not Detected (Not Detect); Influenza A Subtype 2009 H1 Not Detected (Not Detect); Influenza A Untypeable Not Detected (Not Detect); Influenza B Not Detected (Not Detect); Mycoplasma pneumoniae Not Detected (Not Detect); Parainfluenza Virus 1 Not Detected (Not Detect); Parainfluenza Virus 2 Not Detected (Not Detect); Parainfluenza Virus 3 Not Detected (Not Detect); Parainfluenza Virus 4 Not Detected (Not Detect); Respiratory Syncytial Virus Not Detected (Not Detect)
[2017-10-31] MEDS: MethylPREDNISolone 40 MG/ML VIAL IVP SCH ×3 (00:50→11:47)
[2017-10-31] MEDS: Benzonatate 100 MG CAPSULE PO PRN (02:36)
[2017-10-31] MEDS: Ipratropium/Albuterol Neb 3 ML IH SCH ×6 (03:25→23:36)
[2017-10-31 05:01] LABS: INR 1.5; Prothrombin Time 15.8 Seconds (9.4-12.1)
[2017-10-31 05:06] LABS: Basophils % 0.1 %; Hematocrit 31.6 % (35.3-44.9); Immature Granulocytes % 0.8 % (0-4); Lymphocytes # 0.5 K/mcL (0.6-4.6); Lymphocytes % 2.9 %; Mean Corpuscular HGB Conc 31.6 g/dL (31.6-35.5); Mean Corpuscular Hemoglobin 29.4 pg (28.0-33.3); Mean Corpuscular Volume 92.9 fL (83.0-100.0); Mean Platelet Volume 11.1 fL (9.4-12.4); Monocytes # 0.3 K/mcL (0.0-1.3); Monocytes % 1.7 %; Neutrophils # 17.3 K/mcL (1.6-8.9); Platelet Count 324 K/mcL (140-400); Red Cell Distribution Width 15.6 % (11.5-14.5); Segmented Neutrophils % 94.5 %
[2017-10-31 05:15] LABS: Calcium 7.4 mg/dL (8.6-10.3); Potassium 4.3 mEq/L (3.5-5.1)
--- NOTE | 2017-10-31 06:45 | Pulmonology Consult Note ---
Date of Encounter: 10/31/17 Time of Encounter: 06:44 Assessment and Plan (1) Acute on chronic respiratory failure Current Visit: No Status: Acute This appears secondary to hydrostatic pulmonary edema secondary to heart failure preserved ejection fraction. Continue supplemental oxygen to keep saturation around 92% Difficulty with oxygenation patient can be started on positive airway pressure support such as BiPAP settings can be further optimized but empirically 12/5 with oxygen bleed to keep saturation around 92% Possibility of infectious pneumonia for which antimicrobials have been started Still possible but much less likely vasculitis with alveolar hemorrhage Qualifiers: Respiratory failure complication: hypoxia Qualified Code(s): J96.21 - Acute and chronic respiratory failure with hypoxia (2) Hemoptysis Current Visit: No Status: Acute Patient has minor hemoptysis and really more pink frothy sputum which can be seen in hydrostatic pulmonary edema Status post bronchoscopy today with progressive aliquots of BAL which was not consistent with alveolar hemorrhage which is reassuring If more than 250 mL of blood at one time or greater than 250 mL within 12 hours then she should be transferred to ICU for further monitoring and would likely advise intubation at that time (3) Abnormal CT of the chest Current Visit: No Status: Acute Patient has "crazy evening pattern" this is a nonspecific finding which has been generally associated with pulmonary alveolar proteinosis however this is not specific for this disease in fact the usual diagnosis are not associated with PAP and I think in her case would be much more reflective of hydrostatic pulmonary edema. As there does not appear to be evidence of diffuse alveolar hemorrhage Addition generic infectious processes secondly to diffuse alveolar damage such as viral infections etc. and also have this pattern (4) (HFpEF) heart failure with preserved ejection fraction Current Visit: Yes Status: Acute Cardiology following she will need heart rate and blood pressure control and recommend continued diuresis with close monitoring of her kidney function which has slightly worsened since admission (5) Pulmonary infiltrates Current Visit: Yes Status: Acute Differential here is secondary to heart failure versus infectious process does not appear to be alveolar hemorrhage agree with empiric antimicrobials may consider switching from Levaquin to another agent such as doxycycline for atypical coverage given her history of ventricular arrhythmias otherwise broad- spectrum antimicrobials now pending cultures from BAL sent respiratory infections panel if not already performed Unclear but likely limited to no role for steroids in this particular case based upon my initial observations Pulmonary will continue to follow this patient thank you so much for this consultation History of Present Illness Consult date: 10/31/17 Requesting physician: Lloyd Beach Reason for consult: abnormal CXR/CT Chief complaint: Difficulty in Breathing History of present illness: This is a very pleasant 67-year-old woman well known to the pulmonary service for previous history of diffuse alveolar hemorrhage requiring intubation this was the context of warfarin use. During that hospitalization in 2016 she was noted to have ventricular tachycardia status post ICD placement and atrial fibrillation on amiodarone. She also has a history of heart failure with preserved ejection fraction. She states that she has had increasing shortness of breath over the couple of days leading up to admission and has had cough occasionally she has had pink frothy sputum and occasional light blood-tinged sputum. She was given a Z-Jez by her primary care physician but this did not improve the situation and she presented to the emergency department was noted to be hypoxic and has been requiring anywhere from 6-8 L of supplemental oxygen On admission had a chest CT that was performed notable for bilateral groundglass opacities "Crazy paving pattern" She had a troponin elevation at 0.14 that peaked at 0.18 and had been started on anticoagulation with IV heparin are not there is no evidence of increased bloody sputum production/hemoptysis during this time There is also concerned pneumonia and she has been started on antimicrobials for this Evaluated by cardiology who felt that this may be demand ischemia echocardiogram was done which showed it moderate diastolic dysfunction and a dilated left atrium and right atrium along with pulmonary hypertension Speaking with her today she says that she feels about the same she denies any hemoptysis during the course of today denies fevers chills she remains short of breath and prior to admission had noticed some increased in joint pain and inflammation. Denies sick contacts or recent travel no exposure to exotic animals Past Med Surg Social Fam HX - Past Medical History Medical history: atrial fibrillation, COPD, coronary artery disease, diabetes, hyperlipidemia, hypertension, myocardial infarction, other Psychiatric history: no psych history - Past Surgical History Surgical History: hysterectomy, pacemaker/AICD, other - Social History Smoking Status: Never smoker Smokeless Tobacco Status: No Alcohol use: none Drug use: none - Family History Mother Living Status: Hx Family Cardiac Disorders: Yes Hx Family Endocrine Disorder: Yes Medications and Allergies Aspirin 81 mg PO DAILY 06/05/16 [History] Metoprolol [Lopressor] 50 mg PO BID 06/05/16 [History] Multivitamin [Multivitamins] 1 cap PO DAILY 06/05/16 [History] Amiodarone [Cordarone] 200 mg PO DAILY 06/27/16 [History] Potassium Chloride 20 meq PO DAILY tab.er.prt 07/06/16 [Rx] Calcium Carbonate [Calcium] 1,000 mg PO BID 04/28/17 [History] Ferrous Sulfate 325 mg PO DAILY 04/28/17 [History] Alosetron HCl 0.5 mg PO BID 08/19/17 [History] Baclofen [Lioresal] 10 mg PO TID PRN 08/19/17 [History] Cholecalciferol (D-3) [Vitamin D] 2,000 unit PO DAILY #30 tablet 08/25/17 [Rx] Albuterol Sulfate [Ventolin Hfa] 2 puff IH Q6H PRN 09/11/17 [History] Beclomethasone Diprop 80mcg [QVAR 80 mcg] 1 puff IH BID 09/11/17 [History] BuPROPion XL (24 HR) [Wellbutrin Xl] 150 mg PO DAILY 09/11/17 [History] Azithromycin [Azithromycin 6-Tab Pack] 250 mg PO PER PKG DI 10/29/17 [History] Citalopram [CeleXA] 20 mg PO DAILY 10/29/17 [History] Colestipol HCl [Colestid] 1 gm PO BID 10/29/17 [History] Cyanocobalamin (Vitamin B-12) [Vitamin B12] 1,000 mcg PO DAILY 10/29/17 [History ] Hyoscyamine SL [Levsin SL] 0.125 mg SL Q4H PRN 10/29/17 [History] Magnesium Oxide [Mag-Ox] 400 mg PO TID 10/29/17 [History] Meclizine [Antivert] 25 mg PO DAILY PRN 10/29/17 [History] Oxygen 1 each .ROUTE AD 10/29/17 [History] 3 Allergy/AdvReac Type Severity Reaction Status Date / Time peanut Allergy Hives Verified 05/16/17 13:35 zinc Allergy Hives Verified 05/16/17 13:35 Sulfa (Sulfonamide AdvReac Mild constipatio Verified 05/16/17 13:35 Antibiotics) n All Systems: The remainder of the systems were reviewed and are negative Physical Examination Vital Signs: Vital Signs, Last 4 Hours Temp Pulse Resp BP Pulse Ox 10/31/17 04:00 98.5 F 73 20 136/83 90 10/31/17 03:25 20 89 General appearance: no acute distress Eyes: nonicteric ENT: oropharynx moist Auscultation: bilateral: rales Cardiovascular: regular rate and rhythm Gastrointestinal: normoactive bowel sounds, non-tender Integumentary: normal Extremities: no cyanosis, no edema, no clubbing Musculoskeletal: no deformities normal mental status, non-focal exam mood appropriate Results - Laboratory Findings CBC and BMP: 10/31/17 04:08 10/31/17 04:08 PT/INR, D-dimer PT 15.8 Seconds (9.4-12.1) H 10/31/17 04:08 Abnormal lab findings: Abnormal lab results WBC 18.3 K/mcL (4.3-11.1) H D 10/31/17 04:08 RBC 3.40 M/mcL (3.82-4.97) L 10/31/17 04:08 Hgb 10.0 g/dL (11.5-15.4) L 10/31/17 04:08 Hct 31.6 % (35.3-44.9) L 10/31/17 04:08 RDW 15.6 % (11.5-14.5) H 10/31/17 04:08 Neutrophils # 17.3 K/mcL (1.6-8.9) H 10/31/17 04:08 Lymphocytes # 0.5 K/mcL (0.6-4.6) L 10/31/17 04:08 PT 15.8 Seconds (9.4-12.1) H 10/31/17 04:08 APTT 44.0 Seconds (26.0-36.0) H 10/30/17 07:45 Chloride 110 mEq/L (98-107) H 10/31/17 04:08 BUN 32 mg/dL (8-23) H 10/31/17 04:08 Creatinine 1.34 mg/dL (0.60-1.20) H 10/31/17 04:08 Est GFR ( Amer) 48 (> 60) L 10/31/17 04:08 Est GFR (Non-Af Amer) 40 (> 60) L 10/31/17 04:08 Glucose 225 mg/dL (70-105) H 10/31/17 04:08 POC Glucose 156 mg/dL (70-99) H 10/30/17 19:39 Calculated Osmolality 310 (280-300) H 10/31/17 04:08 Calcium 7.4 mg/dL (8.6-10.3) L 10/31/17 04:08 Magnesium 0.8 mg/dL (1.6-2.6) L 10/30/17 00:07 Troponin I 0.14 ng/mL (< 0.04) H* 10/30/17 00:07 B-Natriuretic Peptide 741 pg/mL (Less than 100) H 10/30/17 08:55 HDL Cholesterol 26 mg/dL (40-59) L 10/30/17 00:07 - Microbiology Findings Microbiology Findings: Microbiology, Last 48 Hours 10/30/17 20:00 Sputum Culture - Preliminary Sputum 10/30/17 01:40 Legionella Antigen - Final Urine,Clean Catch Streptococcus pneumoniae Antigen (M - Final - Diagnostic Findings Chest x-ray: report reviewed, image reviewed CT scan - chest: report reviewed, image reviewed - Clinical Findings Intake & Output: Intake & Output 10/30/17 10/30/17 10/31/17 15:59 23:59 07:59 Intake Total 468 / 468 240 / 240 0 / 0 Output Total 300 / 300 1400 / 1400 600 / 600 Balance 168 / 168 -1160 / -1160 -600 / -600 Weight 69.32 kg Consult Discharge Plan - Plan Referrals: Sloane Murphy, [Primary Care Provider] -
[2017-10-31] MEDS: Beclomethasone 80mcg MDI IH SCH ×2 (07:30→20:09)
[2017-10-31] MEDS: Cholecalciferol (D-3) 1,000 UNIT TABLET PO SCH (08:01)
[2017-10-31] MEDS: Cyanocobalamin (B-12) 1,000 MCG TABLET PO SCH (08:01)
[2017-10-31] MEDS: Magnesium Oxide 400 MG TABLET PO SCH ×3 (08:02→22:41)
[2017-10-31] MEDS: *HR* Amiodarone 200 MG TABLET PO SCH (08:02)
[2017-10-31] MEDS: Aspirin 81 MG TAB.CHEW PO SCH (08:02)
[2017-10-31] MEDS: Multivit/Ca/Min/Fe/FA 1 TAB TABLET PO SCH (08:02)
[2017-10-31] MEDS: Furosemide 20 MG/2 ML VIAL IVP SCH ×2 (08:02→22:41)
[2017-10-31] MEDS: BuPROPion XL (24 HR) 150 MG TABLET PO SCH (08:02)
[2017-10-31] MEDS: ALOSETRON HCL 0.5 MG PO SCH ×2 (08:03→23:08)
[2017-10-31] MEDS: Colestipol Hcl [Colestid] 1 GM PO SCH ×2 (08:03→23:08)
[2017-10-31] MEDS: Insulin LISPRO 300 UNITS/3 ML VIAL SQ SCH ×4 (08:07→22:41)
--- NOTE | 2017-10-31 08:42 | Electrocardiograph Report ---
[facility] Test Date: 2017-10-29 Pat Name: Aisha Hebert Department: 103 Room: 2NE25 Gender: F [place] Man: TERRI : 1950 Requested By: Ramin Moeller Order Number: [id number] Reading MD: Ramin Lorenzana Measurements Intervals [place] Rate: 84 P: MT: 0 QRS: 21 QRSD: 87 T: 29 QT: 385 QTc: 426 Interpretive Statements ATRIAL FIBRILLATION WITH ABERRANT CONDUCTION OR VENTRICULAR PREMATURE COMPLEXES ABNORMAL RHYTHM ECG Electronically Signed On 10-31-2017 8:40:26 EDT by Ramin Lorenzana
[2017-10-31] MEDS ORDERED: *HR* Midazolam HCl 5 MG/5 ML VIAL IVP ONE (09:22)
[2017-10-31] MEDS ORDERED: Lidocaine Viscous Oral Soln 15 ML SOLUTION ONE (09:23)
[2017-10-31] MEDS ORDERED: *HR* FentaNYL (PF) 100 MCG/2 ML VIAL ONE (09:23)
[2017-10-31] MEDS ORDERED: Tetracaine/Benzocaine/Butamben 200MG/SPRAY (100SPY/BOT) MM ONE (09:48)
[2017-10-31] MEDS ORDERED: *HR* Midazolam HCl 2 MG/2 ML VIAL IVP ONE (09:48)
[2017-10-31] MEDS ORDERED: *HR* FentaNYL (PF) 100 MCG/2 ML VIAL IVP ONE (09:48)
[2017-10-31] MEDS ORDERED: *HR* EPINEPHrine 1 MG/10 ML SYRINGE INTRATRACH PRN (09:48)
--- NOTE | 2017-10-31 09:48 | Pre-Sedation Evaluation ---
Pre-sedation evaluation - Pre-sedation checklist Date of procedure: 10/31/17 Procedure: Bronchosocpy Recent Vitals: Last Vital Signs Temp 97.6 F 10/31/17 07:39 Pulse 62 10/31/17 09:33 Resp 18 10/31/17 09:33 BP 163/90 10/31/17 09:33 Pulse Ox 94 10/31/17 09:33 H&P (including ROS) documented in medical record: Yes Previous reaction to sedatives/anesthetics: No Dietary Status: NPO after Midnight Airway Assessment: Patient can open mouth completely, TMJ function normal Dentition: No loose teeth or bridges Possible difficult airway: No ASA Classification *see protocol: CLASS III-Severe systemic disease Plan of Care: Pt appropriate candidate for procedure/moderate/conscious sedation , Risks/benefits of procedure/sedation discussed w/ patient/family
[2017-10-31] MEDS ORDERED: Ringers Solution, Lactated 1,000 ML IVC SCH (10:00)
--- NOTE | 2017-10-31 11:04 | Internal Med Progress Note ---
<Greta Patel - Last Filed: 10/31/17 16:20> Date of Encounter: 10/31/17 Time of Encounter: 10:45 - Assessment and plan (1) Acute on chronic respiratory failure Current Visit: No Status: Acute Assessment and plan: - Acute on chronic respiratory failure with hypoxia. - CT chest on 10/30/17 showed patchy ground-glass opacities with crazy paving pattern throughout both lungs. This is likely contribute to patient's current respiratory failure. - Differentials include pulmonary alveolar proteinosis, pulmonary edema, PCP pneumonia or sarcoidosis. - Check ADE, c-ANCA, ESR, CRP. - Per pulmonology, bronchoscopy today does not suggest alveolar hemorrhage and hydrostatic pulmonary edema is most likely the cause of patient's respiratory failure. - Contiue diuresis, scheduled Duoneb and supplemental oxygen. - Will discontinue steroid and switch antibiotic to IV doxycycline for atypical coverage as recommended by pulmonology. Also start BiPAP given patient's remote history of sleep apnea. - Continue to monitor closely. Qualifiers: Respiratory failure complication: hypoxia Qualified Code(s): J96.21 - Acute and chronic respiratory failure with hypoxia (2) Pulmonary infiltrates Current Visit: Yes Status: Acute Assessment and plan: - See above. (3) Pneumonia Current Visit: No Status: Suspected Assessment and plan: - With leukocytosis 13.2 on initial presentation. - Patient's WBC seems to response to antibiotic as WBC 7.4 on hospital Day 1. - Negative respiratory infection panel. - Pending BAL culture. - Will switch to IV doxycycline for more atypical coverage as recommended by pulmonology. Qualifiers: Pneumonia type: due to unspecified organism Laterality: bilateral Lung location: unspecified part of lung Qualified Code(s): J18.9 - Pneumonia, unspecified organism (4) (HFpEF) heart failure with preserved ejection fraction Current Visit: Yes Status: Acute Assessment and plan: - Echo on 10/30/17 showed LVEF 60% with moderate LV diastolic dysfunction. - Net -3057 mL since admission. - Continue diuresis with IV Lasix. - Strict I/O and daily weight. (5) Elevated troponin Current Visit: No Status: Acute Assessment and plan: - Elevated troponins (0.14, 0.18, 0.14). - No chest pain at this time. - Per cardiology, likely demand ischemia in the setting of respiratory failure. - Continue aspirin. - No further cardiac testing warranted as inpatient per cardiology. (6) DERREK (acute kidney injury) Current Visit: No Status: Acute Assessment and plan: - SCr 1.41 on 10/30/17, worsen compared to SCr < 1.0 at baseline. - May be related to diuretic use. - Slightly improves as SCr 1.34 / eGFR 40. - Given patient still appears hypervolemic, will continue Lasix IV but consider discontinuation if renal function gets worse. - Avoid nephrotoxin. - Continue to monitor renal function and electrolytes. (7) PAF (paroxysmal atrial fibrillation) Current Visit: Yes Status: Chronic Assessment and plan: - Currently in sinus rhythm. - Continue rate control with metoprolol. - No on anticoagulation due history of alveolar hemorrhage. (8) Diabetes Current Visit: Yes Status: Chronic Assessment and plan: - Continue insulin sliding scale and glucose monitoring. Qualifiers: Diabetes mellitus type: type 2 Diabetes mellitus medical terminologist insulin use: with medical terminologist use Diabetes mellitus complication status: with kidney complications Diabetes mellitus complication detail: with chronic kidney disease Chronic kidney disease stage: stage 3 (moderate) Qualified Code(s): E11.22 - Type 2 diabetes mellitus with diabetic chronic kidney disease; N18.3 - Chronic kidney disease, stage 3 (moderate); N18.3 - Chronic kidney disease, stage 3 (moderate); Z79.4 - assisted (current) use of insulin; Z79.4 - ferry terminal agent (current) use of insulin; Z79.4 - assisted (current) use of insulin; Z79.4 - ferry terminal agent (current) use of insulin (9) DVT prophylaxis Current Visit: Yes Status: Acute Assessment and plan: - EPCD as mechanical DVT prophylaxis. - Time Spent With Patient Total time spent is greater than 50% in coordination of care (as documented) at patient's floor/unit and/or counseling patient: - Subjective Interval history: Patient was seen and examined this morning after coming back from bronchoscopy. Patient is a little bit somnolent but arousable to verbal stimuli. Patient reports breathing improves and denies chest pain, fever, chills, abdominal pain , nausea, vomiting. - Constitutional Vitals: Temp Pulse Resp BP Pulse Ox 97.6 F 68 18 141/83 96 10/31/17 07:39 10/31/17 10:13 10/31/17 10:13 10/31/17 10:13 10/31/17 10:13 General appearance: Present: cooperative, A&O X 3, no acute distress, answers questions appropriately - Head Head exam: Present: normal inspection - Eye Eye exam: Present: EOMI - Neck Neck exam general surgery: Present: normal inspection, trachea midline - Respiratory Respiratory exam: Present: rales - Cardiovascular Cardiovascular exam: Present: RRR, +S1, +S2 - GI/Abdominal GI/Abdominal exam: Present: normal bowel sounds, soft. Absent: tenderness - Extremities Exam Extremities exam: Absent: cyanotic, pedal edema - Neurological Exam Neurological exam: Present: alert, no focal deficits. Absent: facial droop, speech deficit - Skin Skin exam: Present: dry, warm Internal Medicine: Result - Labs CBC & Chem 7: 10/31/17 04:08 10/31/17 04:08 Labs: Short CBC 10/31/17 Range/Units 04:08 WBC 18.3 H D (4.3-11.1) K/mcL Hgb 10.0 L (11.5-15.4) g/dL Hct 31.6 L (35.3-44.9) % Plt Count 324 (140-400) K/mcL Neutrophils # 17.3 H (1.6-8.9) K/mcL BMP 10/31/17 04:08 Sodium 143 Potassium 4.3 Chloride 110 H Carbon Dioxide 23 BUN 32 H Creatinine 1.34 H Glucose 225 H Calcium 7.4 L - ABG Interpretation ABG results: PT/INR, D-dimer PT 15.8 Seconds (9.4-12.1) H 10/31/17 04:08 - Impressions Impressions Chest CT 10/30/17 12:47 IMPRESSION: 1. 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 Clinical correlation and follow-up studies are recommended. Less likely considerations include pulmonary edema, PCP pneumonia or sarcoidosis. 2. Small left-sided pleural effusion. 3. Enlarged right peritracheal lymph node is most likely reactive in nature. Follow-up chest CT is recommended to ensure stability/resolution in the next 3-4 months. D/ / Luis Antonio Johnson MD / Luis Antonio Johnson MD Interpreting Provider: Luis Antonio Johnson MD - VTE Documentation of Mechanical Device: Intermittent pneumatic compression device Consult Discharge Plan - Plan Referrals: Sloane Murphy, [Primary Care Provider] - <[place] - Last Filed: 10/31/17 17:51> Date of Encounter: 10/31/17 - Assessment and plan (1) Acute on chronic respiratory failure Current Visit: No Status: Acute Qualifiers: Respiratory failure complication: hypoxia Qualified Code(s): J96.21 - Acute and chronic respiratory failure with hypoxia (2) CHF (congestive heart failure) Current Visit: Yes Status: Chronic Qualifiers: Heart failure type: combined systolic and diastolic Heart failure chronicity: acute on chronic Qualified Code(s): I50.43 - Acute on chronic combined systolic (congestive) and diastolic (congestive) heart failure (3) PAF (paroxysmal atrial fibrillation) Current Visit: Yes Status: Chronic (4) Pulmonary alveolar proteinosis Current Visit: Yes Status: Ruled-out (5) CAD (coronary artery disease) Current Visit: Yes Status: Chronic Qualifiers: Coronary Disease-Associated Artery/Lesion type: hughes artery [place] vs. transplanted heart: hughes heart Associated angina: without angina Qualified Code(s): I25.10 - Atherosclerotic heart disease of hughes coronary artery without angina pectoris (6) Diabetes Current Visit: Yes Status: Chronic Qualifiers: Diabetes mellitus type: type 2 Diabetes mellitus mcfp insulin use: with medical terminologist use Diabetes mellitus complication status: with kidney complications Diabetes mellitus complication detail: with chronic kidney disease Chronic kidney disease stage: stage 3 (moderate) Qualified Code(s): E11.22 - Type 2 diabetes mellitus with diabetic chronic kidney disease; N18.3 - Chronic kidney disease, stage 3 (moderate); N18.3 - Chronic kidney disease, stage 3 (moderate); Z79.4 - assisted (current) use of insulin; Z79.4 - assisted (current) use of insulin; Z79.4 - ferry terminal agent (current) use of insulin; Z79.4 - ferry terminal agent (current) use of insulin (7) HTN (hypertension) Current Visit: No Status: Chronic Qualifiers: Hypertension type: essential hypertension Qualified Code(s): I10 - Essential (primary) hypertension - Time Spent With Patient Total time spent is greater than 50% in coordination of care (as documented) at patient's floor/unit and/or counseling patient: - Constitutional Vitals: Temp Pulse Resp BP Pulse Ox 97.8 F 77 15 137/82 97 10/31/17 15:22 10/31/17 15:22 10/31/17 15:30 10/31/17 15:22 10/31/17 15:30 Internal Medicine: Result - Labs CBC & Chem 7: 10/31/17 04:08 10/31/17 04:08 Labs: Short CBC 10/31/17 Range/Units 04:08 WBC 18.3 H D (4.3-11.1) K/mcL Hgb 10.0 L (11.5-15.4) g/dL Hct 31.6 L (35.3-44.9) % Plt Count 324 (140-400) K/mcL Neutrophils # 17.3 H (1.6-8.9) K/mcL BMP 10/31/17 04:08 Sodium 143 Potassium 4.3 Chloride 110 H Carbon Dioxide 23 BUN 32 H Creatinine 1.34 H Glucose 225 H Calcium 7.4 L - ABG Interpretation ABG results: PT/INR, D-dimer PT 15.8 Seconds (9.4-12.1) H 10/31/17 04:08 - Attending Attestation I examined this patient and my medical decision-making was reviewed with the Resident Physician on 10/31/17. I agree with the documented findings, disposition and treatment plan as described except to the extent set forth below. Ms Hebert is currently admitted for respiratory failure most likely related to CHF. She remains moderate to high risk due to potential for worsening clinical status. Ms Hebert had bronch this AM. Tolerated OK. No hemorrhage noted. Seems more CHF. No fever or chills. Seems to be breathing better after this. Exam alert Comfortable in bed Mucus membranes dry Heart not tachy Scant rhonchi heard Abd soft I/P 1. Resp failure 2. CHF Further diagnoses and plan as above.
[2017-10-31 11:25] LABS: Source of Body Fluid BAL RUL
--- NOTE | 2017-10-31 11:44 | Cardiology Progress Note ---
Date of Encounter: 10/31/17 Time of Encounter: 11:42 Assessment and Plan (1) Elevated troponin Current Visit: No Status: Acute Elevated troponins--flat and adynamic--0.14, 0.18, 0.14 in setting of diastolic CHF and possible PNA. Last [facility] 05/2016: Coronary arteries angiographically normal. TTE EF preserved, normal wall motion. Moderate LVDD. Pt denies chest pain. No further cardiac testing warranted as inpt. Cardiology signing off. Reconsult PRN. Will discuss with Dr. Vicente. (2) Diastolic CHF Current Visit: Yes Status: Acute BNP 741. EF preserved with moderate diastolic dysfunction on TTE. Chest CT small left sided pleural effusion. Agree with IV Lasix--20mg BID. Cumulative I/O -2697mL. Switch to maintenance PO Lasix at d/c. Recommend daily weights, strict I/Os, Na and fluid restriction. Cardiology signing off. Reconsult PRN. Qualifiers: Heart failure chronicity: acute on chronic Qualified Code(s): I50.33 - Acute on chronic diastolic (congestive) heart failure (3) Atrial fibrillation Current Visit: No Status: Chronic Hx of atrial flutter ablation currently in normal sinus rhythm. Continue BB and amiodarone. Unable to tolerate anticoagulation due to previous alveolar hemorrhage. She continues to be on aspirin for stroke risk reduction. TTE EF 60%, moderate diastolic dysfunction. Qualifiers: Atrial fibrillation type: paroxysmal Qualified Code(s): I48.0 - Paroxysmal atrial fibrillation Discussion w patient/family: The assessment and plan as outlined above was discussed with the patient and/or family members who expressed understanding and agreement. All questions were answered. Thank you for involving us in the care of your patient. Please call with any questions. I will discuss all the above with Dr. Vicente and make changes as necessary. Subjective Principal diagnosis: diastolic CHF Interval history: TTE resulted--EF 60%, mild cLVH, moderate LVDD, moderate phtn. BNP 741. Underwent bronchoscopy this AM, not consisent with alveolar hemorrhage. Pt denies chest pain. Dyspnea at baseline. Cumulative I/O -2697mL. Pulmonology following, feels symptoms are likely diastolic CHF. Objective Vital Signs, Last 4 Hours Temp Pulse Resp BP Pulse Ox 10/31/17 11:30 97.9 F 52 15 140/83 97 10/31/17 10:13 68 18 141/83 96 10/31/17 10:08 70 18 155/80 92 10/31/17 10:03 65 18 157/87 97 10/31/17 09:58 67 18 138/82 97 10/31/17 09:33 62 18 163/90 94 Vital Signs Temp Pulse Resp BP Pulse Ox 10/31/17 11:30 97.9 F 52 15 140/83 97 10/31/17 10:13 68 18 141/83 96 10/31/17 10:08 70 18 155/80 92 10/31/17 10:03 65 18 157/87 97 10/31/17 09:58 67 18 138/82 97 10/31/17 09:33 62 18 163/90 94 10/31/17 07:39 97.6 F 74 15 150/85 91 10/31/17 07:30 20 90 10/31/17 04:00 98.5 F 73 20 136/83 90 10/31/17 03:25 20 89 10/31/17 00:00 97.7 F 80 18 147/91 92 10/30/17 23:59 18 90 10/30/17 20:10 90 10/30/17 20:05 18 90 10/30/17 20:00 98.3 F 73 20 143/81 87 10/30/17 16:45 90 10/30/17 16:24 97.9 F 70 15 130/77 91 10/30/17 11:44 97.9 F 70 15 129/81 92 Intake and Output 10/30/17 10/31/17 10/31/17 23:59 07:59 15:59 Intake Total 240 / 240 0 / 0 0 / 0 Output Total 1400 / 1400 900 / 900 300 / 300 Balance -1160 / -1160 -900 / -900 -300 / -300 Intake: Oral 240 / 240 0 / 0 0 / 0 Output: Urine 1400 / 1400 900 / 900 300 / 300 Other: Meal Dinner Breakfast Percent of Meal Consumed 90% 0% # Urine Diapers 1 Weight 69.32 kg Blood Glucose* 156 201 141 Patient Weight 10/31/17 23:59 Weight 69.32 kg General: Conversant, No Apparent Distress HEENT: Atraumatic, Normocephaly, Mucus Membranes Moist Neck: No JVD, Normal carotid pulses Cardiac: Reg Rate and Rhythm, Normal S1 and S2, No Murmur Lungs: Other (diminished) Neuro: Alert and responsive, No focal deficits noted Abdomen: Soft, Non-Tender Skin: No rashes noted on visualized skin Musculoskeletal: No Chest Wall Tenderness Extremities: No Clubbing, No Cyanosis, No Edema, Normal Pulses Results 10/31/17 04:08 10/31/17 04:08 Lab Results 10/31/17 10/31/17 10/31/17 04:08 04:08 04:08 WBC 18.3 H D Hgb 10.0 L Hct 31.6 L Plt Count 324 INR 1.5 Sodium 143 Potassium 4.3 Chloride 110 H Carbon Dioxide 23 BUN 32 H Creatinine 1.34 H Glucose 225 H Calcium 7.4 L Short CBC 10/31/17 Range/Units 04:08 WBC 18.3 H D (4.3-11.1) K/mcL Hgb 10.0 L (11.5-15.4) g/dL Hct 31.6 L (35.3-44.9) % Plt Count 324 (140-400) K/mcL Neutrophils # 17.3 H (1.6-8.9) K/mcL BMP 10/31/17 Range/Units 04:08 Sodium 143 (136-145) mEq/L Potassium 4.3 (3.5-5.1) mEq/L Chloride 110 H (98-107) mEq/L Carbon Dioxide 23 (23-29) mEq/L BUN 32 H (8-23) mg/dL Creatinine 1.34 H (0.60-1.20) mg/dL Glucose 225 H (70-105) mg/dL Calcium 7.4 L (8.6-10.3) mg/dL Impressions Echocardiogram 10/29/17 18:29 Impressions: LVEF 60%. Mild concentric left ventricular hypertrophy. Moderate left ventricular diastolic dysfunction. Mildly dilated right ventricle. Mildly dilated left atrium. Moderate pulmonary hypertension. A device lead was visualized in the right atrium and right ventricle. Left Ventricular Wall Motion: Rest Echo Findings All wall segments showed normal motion. Findings: Study Quality * Technically adequate exam. ECG Findings * Normal sinus rhythm. Left Ventricle * LVEF 60%. * Mild concentric left ventricular hypertrophy. * Moderate left ventricular diastolic dysfunction. Right Ventricle * Mildly dilated right ventricle. Left Atrium * Mildly dilated left atrium. Right Atrium * Normal right atrial size. Interatrial Septum * No evidence of PFO by color Doppler. Aortic Valve * Aortic valve not well visualized. Mitral Valve * Normal mitral valve structure and function. Tricuspid Valve * Estimated RVSP is 40 mmHg. * Estimated RA pressure is 10 mmHg. * Moderate pulmonary hypertension. Pulmonic Valve * Normal pulmonic valve structure and function. Aorta * Normally sized aortic root. Pericardium * The pericardium appears normal. IVC * The IVC is not dilated. * < 50% respiratory change. Device lead * A device lead was visualized in the right atrium and right ventricle. Chest CT 10/30/17 12:47 IMPRESSION: 1. 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 Clinical correlation and follow-up studies are recommended. Less likely considerations include pulmonary edema, PCP pneumonia or sarcoidosis. 2. Small left-sided pleural effusion. 3. Enlarged right peritracheal lymph node is most likely reactive in nature. Follow-up chest CT is recommended to ensure stability/resolution in the next 3-4 months. D/ / Luis Antonio Johnson MD / Luis Antonio Johnson MD Interpreting Provider: Luis Antonio Johnson MD Active Medications Albuterol Sulfate (Proventil Neb) 2.5 mg IH Q2H PRN; Protocol PRN Reason: Shortness Of Breath/Wheezing Stop: 05/01/18 17:10 Albuterol/Ipratropium (Duoneb) 3 ml IH [id number] [facility] Stop: 05/01/18 20:01 Last Admin: 10/31/17 11:06 Dose: 3 ml Amiodarone HCl (Cordarone) 200 mg PO DAILY [facility] Stop: 05/01/18 09:01 Last Admin: 10/31/17 08:02 Dose: 200 mg Aspirin (Aspirin) 81 mg PO DAILY [facility] Stop: 05/01/18 09:01 Last Admin: 10/31/17 08:02 Dose: 81 mg Baclofen (Lioresal) 10 mg PO TID PRN PRN Reason: Muscle Spasm Stop: 04/30/18 18:31 Beclomethasone Dipropionate (Qvar 80 Mcg) 1 puff IH BIDR [facility] PRN Reason: Protocol Stop: 04/30/18 22:01 Last Admin: 10/31/17 07:30 Dose: 1 puff Benzonatate (Tessalon) 100 mg PO TID PRN PRN Reason: Cough Stop: 05/01/18 21:46 Last Admin: 10/31/17 02:36 Dose: 100 mg Bupropion HCl (Wellbutrin Xl) 150 mg PO DAILY [facility] Stop: 05/01/18 09:01 Last Admin: 10/31/17 08:02 Dose: 150 mg Calcium Carbonate (Tums) 1,000 mg PO BID [facility] Stop: 04/30/18 21:01 Last Admin: 10/31/17 08:02 Dose: 1,000 mg Citalopram Hydrobromide (Celexa) 20 mg PO DAILY [facility] Stop: 05/01/18 09:01 Last Admin: 10/31/17 08:02 Dose: 20 mg Cyanocobalamin (Vitamin B12) 1,000 mcg PO DAILY [facility] Stop: 05/01/18 09:01 Last Admin: 10/31/17 08:01 Dose: 1,000 mcg Dextrose/Water (Dextrose 50% (Syg)) 25 ml IVP AD PRN PRN Reason: Hypoglycemia Stop: 04/30/18 20:32 Epinephrine HCl (Epinephrine) 0.1 mg INTRATRACH Q1MIN PRN PRN Reason: Bleeding Stop: 05/02/18 09:49 Ferrous Sulfate (Ferrous Sulfate) 325 mg PO DAILY [facility] Stop: 05/01/18 09:01 Last Admin: 10/31/17 08:02 Dose: 325 mg Furosemide (Lasix) 20 mg IVP BID [facility] Stop: 04/30/18 21:01 Last Admin: 10/31/17 08:02 Dose: 20 mg Glucagon (Glucagen) 1 mg IM ONCE PRN PRN Reason: Hypoglycemia Stop: 04/30/18 20:32 Glucose (Gluctose) 15 gm PO ONCE PRN PRN Reason: Hypoglycemia Stop: 04/30/18 20:32 Glucose (Gluctose) 30 gm PO ONCE PRN PRN Reason: Hypoglycemia Stop: 04/30/18 20:32 Hyoscyamine (Levsin Sl) 0.125 mg SL Q4H PRN PRN Reason: Abdominal Cramps Stop: 04/30/18 18:31 Levofloxacin/Dextrose (Levaquin Premix 500mg/100ml) 500 mg in 100 mls @ 100 mls /hr IVPB HS [facility] PRN Reason: Protocol Stop: 04/30/18 21:01 Last Admin: 10/30/17 20:04 Dose: 100 mls/hr Dextrose (Dextrose 5%) 1,000 mls @ 100 mls/hr IVC .Q10H PRN PRN Reason: HYPOGLYCEMIA Stop: 04/30/18 20:32 Lactated Ringer's (Lactated Ringers) 1,000 mls @ 50 mls/hr IVC .Q20H [facility] Stop: 05/02/18 10:01 Last Admin: 10/31/17 09:45 Dose: 50 mls/hr Insulin Human Lispro (Humalog) 0 units SQ HS [facility] PRN Reason: Protocol Stop: 04/30/18 21:01 Last Admin: 10/30/17 20:07 Dose: Not Given Insulin Human Lispro (Humalog) 0 units SQ TIDAC [facility] PRN Reason: Protocol Stop: 05/01/18 07:31 Last Admin: 10/31/17 11:41 Dose: Not Given Magnesium Oxide (Mag-Ox) 400 mg PO TID [facility] PRN Reason: Protocol Stop: 04/30/18 21:01 Last Admin: 10/31/17 08:02 Dose: 400 mg Meclizine HCl (Antivert) 25 mg PO DAILY PRN PRN Reason: DIZZINESS Stop: 04/30/18 18:31 Methylprednisolone (Solu-Medrol) 40 mg IVP Q6HR [facility] Stop: 05/01/18 18:01 Last Admin: 10/31/17 06:13 Dose: 40 mg Metoprolol Tartrate (Lopressor) 50 mg PO BID [facility] Stop: 04/30/18 21:01 Last Admin: 10/31/17 08:02 Dose: 50 mg Multivitamins/Calcium (Thera M Plus) 1 tab PO DAILY [facility] Stop: 05/01/18 09:01 Last Admin: 10/31/17 08:02 Dose: 1 tab Naloxone HCl (Narcan) 0.4 mg IVP Q2MIN PRN PRN Reason: SEE COMMENTS Stop: 04/30/18 18:47 Naloxone HCl (Narcan) 0.4 mg IVP Q2MIN PRN PRN Reason: SEE COMMENTS Stop: 04/30/18 20:27 Nitroglycerin (Nitroglycerin) 0.4 mg SL Q5MIN PRN PRN Reason: Chest Pain Stop: 04/30/18 15:06 Pharmacy Profile Note (Patient Taking Own Medication) 1 each PO BID [facility] Stop: 04/30/18 21:01 Last Admin: 10/31/17 08:03 Dose: Not Given Pharmacy Profile Note (Patient Taking Own Medication) 1 each PO BID [facility] Stop: 04/30/18 21:01 Last Admin: 10/31/17 08:03 Dose: Not Given Potassium Chloride (Potassium Chloride) 20 meq PO DAILY [facility] Stop: 05/01/18 09:01 Last Admin: 10/31/17 08:02 Dose: 20 meq Vitamin D (Vitamin D) 2,000 unit PO DAILY [facility] Stop: 05/01/18 09:01 Last Admin: 10/31/17 08:01 Dose: 2,000 unit - Imaging and Cardiology Echo: report reviewed - EKG Interpretation EKG results cardiology: other (12 hr tele AVG HR 65, SR) - VTE Documentation of Mechanical Device: Intermittent pneumatic compression device Consult Discharge Plan - Plan Referrals: Sloane Murphy DO [Primary Care Provider] -
[2017-10-31 12:04] LABS: Appearance of Body Fluid Hazy (Clear); Volume of Body Fluid 41 mL
[2017-10-31] MEDS: Doxycycline 100 MG in 0.9 % Sodium Chloride Mini Bag 100 ML IVPB SCH (17:53)
[2017-10-31] MEDS ORDERED: LEVOFLOXACIN 750 MG/150 ML IVPB SCH (20:00)
[2017-11-01] MEDS: Ipratropium/Albuterol Neb 3 ML IH SCH ×6 (03:46→22:41)
[2017-11-01 05:10] LABS: Basophils % 0.1 %; Hematocrit 30.2 % (35.3-44.9); Hemoglobin 9.4 g/dL (11.5-15.4); Immature Granulocytes % 0.5 % (0-4); Lymphocytes # 0.7 K/mcL (0.6-4.6); Mean Corpuscular HGB Conc 31.1 g/dL (31.6-35.5); Mean Corpuscular Volume 93.2 fL (83.0-100.0); Mean Platelet Volume 10.9 fL (9.4-12.4); Monocytes # 0.9 K/mcL (0.0-1.3); Monocytes % 5.3 %; Neutrophils # 14.9 K/mcL (1.6-8.9); Platelet Count 330 K/mcL (140-400); Red Blood Count 3.24 M/mcL (3.82-4.97); Red Cell Distribution Width 15.6 % (11.5-14.5); Segmented Neutrophils % 90.1 %
[2017-11-01 05:16] LABS: Calcium 7.6 mg/dL (8.6-10.3)
[2017-11-01] MEDS: Doxycycline 100 MG in 0.9 % Sodium Chloride Mini Bag 100 ML IVPB SCH ×2 (06:44→18:04)
--- NOTE | 2017-11-01 07:26 | Internal Med Progress Note ---
<Rasheed Thibodeaux - Last Filed: 11/01/17 17:47> Date of Encounter: 11/01/17 Time of Encounter: 07:26 - Assessment and plan (1) (HFpEF) heart failure with preserved ejection fraction Current Visit: Yes Status: Acute Assessment and plan: Echo on 10/30/17 showed LVEF 60% with moderate LV diastolic dysfunction. Net -3292 mL since admission. Patient appears hypervolemic, will continue diuresis with Lasix IV but consider discontinuation if renal function worsens. Continue BB Strict I/O and daily weight. (2) Acute on chronic respiratory failure Current Visit: Yes Status: Acute Assessment and plan: Acute respiratory failure with hypoxia most likely related to CHF CT chest on 10/30/17 showed patchy ground-glass opacities with crazy paving pattern throughout both lungs. This is likely contribute to patient's current respiratory failure. Differentials include pulmonary alveolar proteinosis, pulmonary edema, PCP pneumonia or sarcoidosis. ESR 71, CRP 54, AED, c-ANCA pending. Per pulmonology, bronchoscopy 10/31/17 does not suggest alveolar hemorrhage. Hydrostatic pulmonary edema is most likely the cause of patient's respiratory failure. Patient received 2 days of Levaquin Discontinued steroid and switched to antibiotic IV Doxycycline (Day 2) for atypical coverage as recommended by pulmonology. Continue BiPAP prn given hypoxia and history of sleep apnea. Contiue diuresis, scheduled Duoneb and supplemental oxygen. Continue wean off oxygen to keep SPO2 around 90%. Continue to monitor closely. She remains moderate to high risk due to potential for worsening clinical status. Qualifiers: Respiratory failure complication: hypoxia Qualified Code(s): J96.21 - Acute and chronic respiratory failure with hypoxia (3) Pneumonia Current Visit: Yes Status: Suspected Assessment and plan: Leukocytosis 13.2 (on admission) --> 7.4 --> 16.6 Negative respiratory infection panel. BAL cultures show no growth to date. Switched to IV doxycycline (Day 2) for atypical coverage as recommended by pulmonology. Qualifiers: Pneumonia type: due to unspecified organism Laterality: bilateral Lung location: unspecified part of lung Qualified Code(s): J18.9 - Pneumonia, unspecified organism (4) Pulmonary infiltrates Current Visit: Yes Status: Acute Assessment and plan: See above (5) DERREK (acute kidney injury) Current Visit: Yes Status: Acute Assessment and plan: SCr 1.41 on 10/30/17, worsen compared to SCr < 1.0 at baseline. Likely related to diuretic use. Patient appears hypervolemic, will continue Lasix 20mg BID IV but consider discontinuation if renal function gets worse. Avoid nephrotoxins Continue to monitor renal function and electrolytes. (6) Elevated troponin Current Visit: Yes Status: Acute Assessment and plan: Elevated troponins (0.14, 0.18, 0.14). No chest pain at this time. Per cardiology, likely demand ischemia in the setting of respiratory failure. Continue aspirin. No further cardiac testing warranted as inpatient per cardiology (7) PAF (paroxysmal atrial fibrillation) Current Visit: Yes Status: Chronic Assessment and plan: Currently rate control with metoprolol in sinus rhythm. 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 (8) Diabetes mellitus, type 2 Current Visit: No Status: Chronic Assessment and plan: Continue ADA diet, sliding scale insulin and glucose monitoring. 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 EPCD as mechanical DVT prophylaxis. - Time Spent With Patient Total time spent is greater than 50% in coordination of care (as documented) at patient's floor/unit and/or counseling patient: - Subjective Interval history: Patient seen and examined. Patient reports increased SOB after walking to the bathroom and her SpO2 dropped down to 81% despite 7 L supplemental O2. Her SpO2 increased to 89% after getting back into bed. Patient reports ongoing pink sputum production but reports feeling overall improved. Patient reports inability to tolerate BiPap overnight due to smothering feeling. Case discussed with nursing at bedside. - Constitutional Vitals: Temp Pulse Resp BP Pulse Ox 97.7 F 65 17 125/84 98 11/01/17 04:00 11/01/17 04:00 11/01/17 04:00 11/01/17 04:00 11/01/17 04:00 General appearance: Present: cooperative, A&O X 3, no acute distress, answers questions appropriately - Head Head exam: Present: atraumatic, normocephalic - Eye Eye exam: Present: PERRL, conjuntiva pink, sclera anicteric Pupils: Present: PERRL - ENT ENT exam: Present: mucous membranes moist, normal oropharynx - Neck Neck exam general surgery: Present: supple, trachea midline. Absent: lymphadenopathy - Respiratory Respiratory exam: Present: rhonchi. Absent: accessory muscle use, CTAB, rales, wheezes Additional comments: mildly labored - Cardiovascular Cardiovascular exam: Present: irregular rhythm, +S1, +S2. Absent: diastolic murmur, gallop, rubs, systolic murmur - GI/Abdominal GI/Abdominal exam: Present: normal bowel sounds, soft, no peritoneal signs. Absent: distended, tenderness - Extremities Exam Extremities exam: Present: warm, radial pulses palpable and symmetrical. Absent : calf tenderness, cyanotic, pedal edema - Back Exam Back exam: Present: normal inspection. Absent: tenderness - Neurological Exam Neurological exam: Present: CN II-XII intact, oriented X3, no focal deficits. Absent: pronater drift, facial droop, speech deficit - Psychiatric Psychiatric exam: Present: normal affect, normal mood - Skin Skin exam: Present: dry, intact, normal color Internal Medicine: Result - Labs CBC & Chem 7: 11/01/17 04:13 11/01/17 04:13 Labs: Short CBC 11/01/17 Range/Units 04:13 WBC 16.6 H (4.3-11.1) K/mcL Hgb 9.4 L (11.5-15.4) g/dL Hct 30.2 L (35.3-44.9) % Plt Count 330 (140-400) K/mcL Neutrophils # 14.9 H (1.6-8.9) K/mcL BMP 11/01/17 04:13 Sodium 145 Potassium 4.0 Chloride 111 H Carbon Dioxide 33 H BUN 32 H Creatinine 1.23 H Glucose 153 H Calcium 7.6 L - ABG Interpretation ABG results: PT/INR, D-dimer PT 15.8 Seconds (9.4-12.1) H 10/31/17 04:08 - Pulse Oximetry Interpretation Forehead Pulse Oximetry Readin (on 7 L humidified O2 via NC) Actions taken: none - Impressions ITS Impressions Chest X-Ray 10/29/17 14:00 IMPRESSION: 1. Cardiomegaly with vascular congestion and bilateral infiltrates likely representing edema and congestive failure. D/ / Morgan Enrique MD / Morgan Enrique MD Interpreting Provider: Morgan Enrique MD Echocardiogram 10/29/17 18:29 Impressions: LVEF 60%. Mild concentric left ventricular hypertrophy. Moderate left ventricular diastolic dysfunction. Mildly dilated right ventricle. Mildly dilated left atrium. Moderate pulmonary hypertension. A device lead was visualized in the right atrium and right ventricle. Left Ventricular Wall Motion: Rest Echo Findings All wall segments showed normal motion. Findings: Study Quality * Technically adequate exam. ECG Findings * Normal sinus rhythm. Left Ventricle * LVEF 60%. * Mild concentric left ventricular hypertrophy. * Moderate left ventricular diastolic dysfunction. Right Ventricle * Mildly dilated right ventricle. Left Atrium * Mildly dilated left atrium. Right Atrium * Normal right atrial size. Interatrial Septum * No evidence of PFO by color Doppler. Aortic Valve * Aortic valve not well visualized. Mitral Valve * Normal mitral valve structure and function. Tricuspid Valve * Estimated RVSP is 40 mmHg. * Estimated RA pressure is 10 mmHg. * Moderate pulmonary hypertension. Pulmonic Valve * Normal pulmonic valve structure and function. Aorta * Normally sized aortic root. Pericardium * The pericardium appears normal. IVC * The IVC is not dilated. * < 50% respiratory change. Device lead * A device lead was visualized in the right atrium and right ventricle. Chest CT 10/30/17 12:47 IMPRESSION: 1. 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 Clinical correlation and follow-up studies are recommended. Less likely considerations include pulmonary edema, PCP pneumonia or sarcoidosis. 2. Small left-sided pleural effusion. 3. Enlarged right peritracheal lymph node is most likely reactive in nature. Follow-up chest CT is recommended to ensure stability/resolution in the next 3-4 months. D/ / Luis Antonio Johnson MD / Luis Antonio Johnson MD Interpreting Provider: Luis Antonio Johnson MD - VTE Documentation of Mechanical Device: Intermittent pneumatic compression device Consult Discharge Plan - Plan Referrals: Sloane Murphy, [Primary Care Provider] - <[place] - Last Filed: 11/01/17 19:26> Date of Encounter: 11/01/17 - Assessment and plan (1) Acute on chronic respiratory failure Current Visit: Yes Status: Acute Qualifiers: Respiratory failure complication: hypoxia Qualified Code(s): J96.21 - Acute and chronic respiratory failure with hypoxia (2) CHF (congestive heart failure) Current Visit: Yes Status: Chronic Qualifiers: Heart failure type: combined systolic and diastolic Heart failure chronicity: acute on chronic Qualified Code(s): I50.43 - Acute on chronic combined systolic (congestive) and diastolic (congestive) heart failure (3) PAF (paroxysmal atrial fibrillation) Current Visit: Yes Status: Chronic (4) CAD (coronary artery disease) Current Visit: Yes Status: Chronic Qualifiers: Coronary Disease-Associated Artery/Lesion type: [place] artery [place] vs. transplanted heart: [place] heart Associated angina: without angina Qualified Code(s): I25.10 - Atherosclerotic heart disease of [place] coronary artery without angina pectoris (5) Diabetes Current Visit: Yes Status: Chronic Qualifiers: Diabetes mellitus type: type 2 Diabetes mellitus halfway insulin use: with dev manager use Diabetes mellitus complication status: with kidney complications Diabetes mellitus complication detail: with chronic kidney disease Chronic kidney disease stage: stage 3 (moderate) Qualified Code(s): E11.22 - Type 2 diabetes mellitus with diabetic chronic kidney disease; N18.3 - Chronic kidney disease, stage 3 (moderate); N18.3 - Chronic kidney disease, stage 3 (moderate); Z79.4 - FDC (current) use of insulin; Z79.4 - FDC (current) use of insulin; Z79.4 - FDC (current) use of insulin; Z79.4 - FDC (current) use of insulin (6) HTN (hypertension) Current Visit: No Status: Chronic Qualifiers: Hypertension type: essential hypertension Qualified Code(s): I10 - Essential (primary) hypertension - Time Spent With Patient Total time spent is greater than 50% in coordination of care (as documented) at patient's floor/unit and/or counseling patient: - Constitutional Vitals: Temp Pulse Resp BP Pulse Ox 98.1 F 76 17 121/81 92 11/01/17 19:20 11/01/17 19:20 11/01/17 19:20 11/01/17 19:20 11/01/17 19:20 Internal Medicine: Result - Labs CBC & Chem 7: 11/01/17 04:13 11/01/17 04:13 Labs: Short CBC 11/01/17 Range/Units 04:13 WBC 16.6 H (4.3-11.1) K/mcL Hgb 9.4 L (11.5-15.4) g/dL Hct 30.2 L (35.3-44.9) % Plt Count 330 (140-400) K/mcL Neutrophils # 14.9 H (1.6-8.9) K/mcL BMP 11/01/17 04:13 Sodium 145 Potassium 4.0 Chloride 111 H Carbon Dioxide 33 H BUN 32 H Creatinine 1.23 H Glucose 153 H Calcium 7.6 L - ABG Interpretation ABG results: PT/INR, D-dimer PT 15.8 Seconds (9.4-12.1) H 10/31/17 04:08 - Attending Attestation I examined this patient and my medical decision-making was reviewed with the Resident Physician on 11/01/17. I agree with the documented findings, disposition and treatment plan as described except to the extent set forth below. Ms Hebert is currently admitted for acute CHF and resp failure. She remains moderate to high risk due to potential for worsening clinical status. Ms Hebert is still requiring a lot of oxygen. No fever or chills. No CP. Overall feels somewhat better since bronch. Exam alert Comfortable Mucus membranes dry Heart distant Lung with rhonchi and rales Abd soft I/P 1. Resp failure 2. CHF Further diagnoses and plan as above.
[2017-11-01] MEDS: Beclomethasone 80mcg MDI IH SCH ×2 (07:40→19:32)
[2017-11-01 08:05] LABS: Magnesium 1.1 mg/dL (1.6-2.6); Phosphorous 2.9 mg/dL (2.7-4.5)
--- NOTE | 2017-11-01 08:37 | Pulmonology Progress Note ---
Date of Encounter: 11/01/17 Time of Encounter: 08:10 Subjective Principal diagnosis: diastolic CHF Interval history: Patient is feeling better and hemoptysis is much better now Objective PUL Vital signs: Last Vital Signs Temp 97.7 F 11/01/17 07:55 Pulse 76 11/01/17 07:55 Resp 15 11/01/17 07:55 BP 134/73 11/01/17 07:55 Pulse Ox 91 11/01/17 07:55 General appearance: no acute distress Eyes: nonicteric Neck: supple Effort: mildly labored Auscultation: bilateral: rhonchi Percussion: bilateral: not dull Cardiovascular: irregular rhythm Gastrointestinal: normoactive bowel sounds, non-distended Extremities: no cyanosis normal mental status, non-focal exam mood appropriate Results - Laboratory Findings CBC and BMP: 11/01/17 04:13 11/01/17 04:13 PT/INR, D-dimer PT 15.8 Seconds (9.4-12.1) H 10/31/17 04:08 Abnormal lab findings: Abnormal lab results WBC 16.6 K/mcL (4.3-11.1) H 11/01/17 04:13 RBC 3.24 M/mcL (3.82-4.97) L 11/01/17 04:13 Hgb 9.4 g/dL (11.5-15.4) L 11/01/17 04:13 Hct 30.2 % (35.3-44.9) L 11/01/17 04:13 MCHC 31.1 g/dL (31.6-35.5) L 11/01/17 04:13 RDW 15.6 % (11.5-14.5) H 11/01/17 04:13 Neutrophils # 14.9 K/mcL (1.6-8.9) H 11/01/17 04:13 ESR 71 mm/hr (0-15) H 10/31/17 11:14 PT 15.8 Seconds (9.4-12.1) H 10/31/17 04:08 APTT 44.0 Seconds (26.0-36.0) H 10/30/17 07:45 Chloride 111 mEq/L (98-107) H 11/01/17 04:13 Carbon Dioxide 33 mEq/L (23-29) H 11/01/17 04:13 BUN 32 mg/dL (8-23) H 11/01/17 04:13 Creatinine 1.23 mg/dL (0.60-1.20) H 11/01/17 04:13 Est GFR ( Amer) 53 (> 60) L 11/01/17 04:13 Est GFR (Non-Af Amer) 44 (> 60) L 11/01/17 04:13 Glucose 153 mg/dL (70-105) H 11/01/17 04:13 POC Glucose 141 mg/dL (70-99) H 10/31/17 11:34 Calculated Osmolality 310 (280-300) H 11/01/17 04:13 Calcium 7.6 mg/dL (8.6-10.3) L 11/01/17 04:13 Magnesium 1.1 mg/dL (1.6-2.6) L 11/01/17 04:13 Troponin I 0.14 ng/mL (< 0.04) H* 10/30/17 00:07 C-Reactive Protein 54 mg/L (Less than 10) H 10/31/17 11:14 B-Natriuretic Peptide 741 pg/mL (Less than 100) H 10/30/17 08:55 HDL Cholesterol 26 mg/dL (40-59) L 10/30/17 00:07 Fluid Appearance Hazy (Clear) A 10/31/17 11:03 - Microbiology Findings Microbiology Findings: Microbiology, Last 48 Hours 10/30/17 20:00 Sputum Culture - Preliminary Sputum 10/31/17 11:03 Gram Stain - Final Right Upper Lobe Lung 10/30/17 01:40 Legionella Antigen - Final Urine,Clean Catch Streptococcus pneumoniae Antigen (M - Final - Diagnostic Findings CT scan - chest: report reviewed, image reviewed - Clinical Findings Intake & Output: Intake & Output 10/31/17 11/01/17 11/01/17 23:59 07:59 15:59 Intake Total 240 / 240 100 / 100 Output Total 150 / 150 425 / 425 Balance 90 / 90 -325 / -325 Weight 68.7 kg - VTE Documentation of Mechanical Device: Intermittent pneumatic compression device Consult Discharge Plan - Plan Referrals: Sloane Murphy DO [Primary Care Provider] - - Attending Attestation Assessment and plan: Hemoptysis and patient stated she is feeling better and will continue monitoring at this time. Slightly this is related to underlying heart failure and pulmonary edema. Patient with acute hypoxic respiratory failure which I suspect will improve with treatment of underlying disease. Continue wean off oxygen to keep SPO2 around 90%. We will continue follow-up.
[2017-11-01] MEDS: Insulin LISPRO 300 UNITS/3 ML VIAL SQ SCH ×4 (10:06→21:34)
[2017-11-01] MEDS: Aspirin 81 MG TAB.CHEW PO SCH (10:07)
[2017-11-01] MEDS: Magnesium Oxide 400 MG TABLET PO SCH ×3 (10:07→21:35)
[2017-11-01] MEDS: Furosemide 20 MG/2 ML VIAL IVP SCH ×2 (10:07→18:04)
[2017-11-01] MEDS: BuPROPion XL (24 HR) 150 MG TABLET PO SCH (10:07)
[2017-11-01] MEDS: Cyanocobalamin (B-12) 1,000 MCG TABLET PO SCH (10:07)
[2017-11-01] MEDS: *HR* Amiodarone 200 MG TABLET PO SCH (10:07)
[2017-11-01] MEDS: Multivit/Ca/Min/Fe/FA 1 TAB TABLET PO SCH (10:07)
[2017-11-01] MEDS: Cholecalciferol (D-3) 1,000 UNIT TABLET PO SCH (10:07)
[2017-11-01] MEDS: ALOSETRON HCL 0.5 MG PO SCH ×2 (10:18→21:36)
[2017-11-01] MEDS: Colestipol Hcl [Colestid] 1 GM PO SCH ×2 (10:19→21:36)
[2017-11-02 01:39] LABS: Basophils % 0.1 %; Eosinophils # 0.1 K/mcL (0.0-0.6); Eosinophils % 0.9 %; Hematocrit 31.3 % (35.3-44.9); Hemoglobin 9.7 g/dL (11.5-15.4); Immature Granulocytes % 0.5 % (0-4); Lymphocytes # 1.1 K/mcL (0.6-4.6); Lymphocytes % 7.2 %; Mean Corpuscular Volume 93.4 fL (83.0-100.0); Mean Platelet Volume 10.5 fL (9.4-12.4); Monocytes % 6.6 %; Neutrophils # 12.6 K/mcL (1.6-8.9); Platelet Count 325 K/mcL (140-400); Red Blood Count 3.35 M/mcL (3.82-4.97); Red Cell Distribution Width 15.5 % (11.5-14.5); Segmented Neutrophils % 84.7 %
[2017-11-02 02:03] LABS: Magnesium 1.3 mg/dL (1.6-2.6); Potassium 3.5 mEq/L (3.5-5.1)
[2017-11-02] MEDS: Ipratropium/Albuterol Neb 3 ML IH SCH ×6 (04:25→23:24)
[2017-11-02] MEDS: Doxycycline 100 MG in 0.9 % Sodium Chloride Mini Bag 100 ML IVPB SCH ×2 (04:53→18:02)
--- NOTE | 2017-11-02 07:22 | Internal Med Progress Note ---
<Rasheed Thibodeaux - Last Filed: 11/02/17 15:19> Date of Encounter: 11/02/17 Time of Encounter: 07:21 - Assessment and plan (1) Acute on chronic respiratory failure Current Visit: Yes Status: Acute Assessment and plan: Acute respiratory failure with hypoxia most likely related to CHF CT chest on 10/30/17 showed patchy ground-glass opacities with crazy paving pattern throughout both lungs. This is likely contribute to patient's current respiratory failure. Differentials include pulmonary alveolar proteinosis, pulmonary edema, PCP pneumonia or sarcoidosis. ESR 71, CRP 54, ADE, c-ANCA pending. Per pulmonology, bronchoscopy 10/31/17 does not suggest alveolar hemorrhage. Hydrostatic pulmonary edema is most likely the cause of patient's respiratory failure. Patient received 2 days of Levaquin Discontinued steroid and switched to antibiotic IV Doxycycline (Day 3) for atypical coverage as recommended by pulmonology. Continue BiPAP prn given hypoxia and history of sleep apnea. Contiue diuresis, scheduled Duoneb and supplemental oxygen. Continue wean off oxygen to keep SPO2 around 90%. Continue to monitor closely. Per pulmonology, if her hemoptysis worsens, will plan to arrange bronchoscopy. She remains moderate to high risk due to potential for worsening clinical status. Qualifiers: Respiratory failure complication: hypoxia Qualified Code(s): J96.21 - Acute and chronic respiratory failure with hypoxia (2) (HFpEF) heart failure with preserved ejection fraction Current Visit: Yes Status: Acute Assessment and plan: Echo on 10/30/17 showed LVEF 60% with moderate LV diastolic dysfunction. Net -4517 mL since admission. Patient appears hypervolemic, will continue diuresis with Lasix IV but consider discontinuation if renal function worsens. Continue BB Strict I/O and daily weight. (3) Pneumonia Current Visit: Yes Status: Suspected Assessment and plan: Leukocytosis 13.2 (on admission) --> 7.4 --> 16.6 --> 14.9 Negative respiratory infection panel. BAL cultures show no growth to date. Switched to IV doxycycline (Day 3) for atypical coverage as recommended by pulmonology. Qualifiers: Pneumonia type: due to unspecified organism Laterality: bilateral Lung location: unspecified part of lung Qualified Code(s): J18.9 - Pneumonia, unspecified organism (4) DERREK (acute kidney injury) Current Visit: Yes Status: Acute Assessment and plan: SCr improving, SCr < 1.0 at baseline. Likely related to diuretic use. Patient appears hypervolemic, will continue Lasix 20mg BID IV but consider discontinuation if renal function gets worse. Avoid nephrotoxins Continue to monitor renal function and electrolytes. (5) Elevated troponin Current Visit: Yes Status: Acute Assessment and plan: Elevated troponins (0.14, 0.18, 0.14). Intermittent chest pain unchanged. EKG unremarkable. Per cardiology, likely demand ischemia in the setting of respiratory failure. Continue aspirin. No further cardiac testing warranted as inpatient per cardiology (6) PAF (paroxysmal atrial fibrillation) Current Visit: Yes Status: Chronic Assessment and plan: Currently rate control with metoprolol in sinus rhythm. 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 (7) Diabetes mellitus, type 2 Current Visit: No Status: Chronic Assessment and plan: Continue ADA diet, sliding scale insulin and glucose monitoring. Qualifiers: Diabetes mellitus fdc insulin use: without marine oil terminal superintendent use Diabetes mellitus complication status: with unspecified complications Qualified Code(s) : E11.8 - Type 2 diabetes mellitus with unspecified complications (8) Hypomagnesemia Current Visit: Yes Status: Acute Assessment and plan: Mag 1.3 Supplement Mag Continue to monitor (9) DVT prophylaxis Current Visit: Yes Status: Acute Assessment and plan: Not on anticoagulation due history of alveolar hemorrhage. EPCD as mechanical DVT prophylaxis. (10) IBS (irritable bowel syndrome) Current Visit: No Status: Chronic Qualifiers: Irritable bowel syndrome type: with diarrhea Qualified Code(s): K58.0 - Irritable bowel syndrome with diarrhea - Time Spent With Patient Total time spent is greater than 50% in coordination of care (as documented) at patient's floor/unit and/or counseling patient: - Subjective Interval history: Patient seen and examined. Patient reports ongoing hemoptysis (a total of 3 teaspoons of bright red blood) but she reports feeling overall improved. Patient reports inability to sleep last night due to BiPap/ smothering feeling. Intermittent chest pain has unchanged. - Constitutional Vitals: Temp Pulse Resp BP Pulse Ox 98.1 F 60 22 136/82 96 11/01/17 19:20 11/02/17 04:53 11/02/17 04:53 11/02/17 04:53 11/02/17 04:53 General appearance: Present: cooperative, A&O X 3, no acute distress, answers questions appropriately - Head Head exam: Present: atraumatic, normocephalic - Eye Eye exam: Present: PERRL, conjuntiva pink, sclera anicteric Pupils: Present: PERRL - ENT ENT exam: Present: mucous membranes dry, normal oropharynx - Neck Neck exam general surgery: Present: supple, trachea midline. Absent: lymphadenopathy - Respiratory Respiratory exam: Present: rhonchi. Absent: accessory muscle use, decreased breath sounds, CTAB, rales, respiratory distress, wheezes Additional comments: on Bipap then on 8L supplemental O2 - Cardiovascular Cardiovascular exam: Present: RRR, +S1, +S2. Absent: diastolic murmur, gallop, rubs, systolic murmur - GI/Abdominal GI/Abdominal exam: Present: normal bowel sounds, soft, no peritoneal signs. Absent: distended, tenderness - Extremities Exam Extremities exam: Present: warm, radial pulses palpable and symmetrical. Absent : calf tenderness, cyanotic, pedal edema - Back Exam Back exam: Present: normal inspection. Absent: tenderness - Neurological Exam Neurological exam: Present: CN II-XII intact, oriented X3, no focal deficits. Absent: pronater drift, facial droop, speech deficit - Psychiatric Psychiatric exam: Present: anxious, normal affect - Skin Skin exam: Present: dry, intact, warm Internal Medicine: Result - Labs CBC & Chem 7: 11/02/17 01:20 11/02/17 01:20 Labs: Short CBC 11/02/17 Range/Units 01:20 WBC 14.9 H (4.3-11.1) K/mcL Hgb 9.7 L (11.5-15.4) g/dL Hct 31.3 L (35.3-44.9) % Plt Count 325 (140-400) K/mcL Neutrophils # 12.6 H (1.6-8.9) K/mcL BMP 11/01/17 11/02/17 04:13 01:20 Sodium 145 145 Potassium 4.0 3.5 Chloride 111 H 104 Carbon Dioxide 33 H 36 H BUN 32 H 27 H Creatinine 1.23 H 1.12 Glucose 153 H 149 H Calcium 7.6 L 8.0 L - ABG Interpretation ABG results: PT/INR, D-dimer PT 15.8 Seconds (9.4-12.1) H 10/31/17 04:08 - Pulse Oximetry Interpretation Digit-Finger Pulse Oximetry Readin (8L) - EKG Interpretation EKG Interpreted by Myself: Yes EKG shows normal: sinus rhythm (occasional supraventricular premature complexes) Rate: normal (63) - VTE Documentation of Mechanical Device: Intermittent pneumatic compression device Consult Discharge Plan - Plan Referrals: Sloane Murphy, [Primary Care Provider] - <[place] - Last Filed: 11/02/17 18:21> Date of Encounter: 11/02/17 - Assessment and plan (1) Acute on chronic respiratory failure Current Visit: Yes Status: Acute Qualifiers: Respiratory failure complication: hypoxia Qualified Code(s): J96.21 - Acute and chronic respiratory failure with hypoxia (2) CHF (congestive heart failure) Current Visit: Yes Status: Chronic Qualifiers: Heart failure type: combined systolic and diastolic Heart failure chronicity: acute on chronic Qualified Code(s): I50.43 - Acute on chronic combined systolic (congestive) and diastolic (congestive) heart failure (3) PAF (paroxysmal atrial fibrillation) Current Visit: Yes Status: Chronic (4) CAD (coronary artery disease) Current Visit: Yes Status: Chronic Qualifiers: Coronary Disease-Associated Artery/Lesion type: [place] artery [place] vs. transplanted heart: [place] heart Associated angina: without angina Qualified Code(s): I25.10 - Atherosclerotic heart disease of [place] coronary artery without angina pectoris (5) Diabetes Current Visit: Yes Status: Chronic Qualifiers: Diabetes mellitus type: type 2 Diabetes mellitus fdc insulin use: with marine oil terminal superintendent use Diabetes mellitus complication status: with kidney complications Diabetes mellitus complication detail: with chronic kidney disease Chronic kidney disease stage: stage 3 (moderate) Qualified Code(s): E11.22 - Type 2 diabetes mellitus with diabetic chronic kidney disease; N18.3 - Chronic kidney disease, stage 3 (moderate); N18.3 - Chronic kidney disease, stage 3 (moderate); Z79.4 - marine oil terminal superintendent (current) use of insulin; Z79.4 - marine oil terminal superintendent (current) use of insulin; Z79.4 - marine oil terminal superintendent (current) use of insulin; Z79.4 - FPC (current) use of insulin (6) HTN (hypertension) Current Visit: No Status: Chronic Qualifiers: Hypertension type: essential hypertension Qualified Code(s): I10 - Essential (primary) hypertension - Time Spent With Patient Total time spent is greater than 50% in coordination of care (as documented) at patient's floor/unit and/or counseling patient: - Constitutional Vitals: Temp Pulse Resp BP Pulse Ox 97.8 F 63 26 105/94 94 11/02/17 15:36 11/02/17 15:36 11/02/17 16:38 11/02/17 16:38 11/02/17 16:38 Internal Medicine: Result - Labs CBC & Chem 7: 11/02/17 01:20 11/02/17 01:20 Labs: Short CBC 11/02/17 Range/Units 01:20 WBC 14.9 H (4.3-11.1) K/mcL Hgb 9.7 L (11.5-15.4) g/dL Hct 31.3 L (35.3-44.9) % Plt Count 325 (140-400) K/mcL Neutrophils # 12.6 H (1.6-8.9) K/mcL BMP 11/02/17 01:20 Sodium 145 Potassium 3.5 Chloride 104 Carbon Dioxide 36 H BUN 27 H Creatinine 1.12 Glucose 149 H Calcium 8.0 L - ABG Interpretation ABG results: PT/INR, D-dimer PT 15.8 Seconds (9.4-12.1) H 10/31/17 04:08 - Attending Attestation I examined this patient and my medical decision-making was reviewed with the Resident Physician on 11/02/17. I agree with the documented findings, disposition and treatment plan as described except to the extent set forth below. Ms Hebert is currently admitted for acute resp failure and CHF. She remains moderate to high risk due to potential for worsening clinical status. Ms Hebert had increased dyspnea today but improved in the afternoon. No fever or chills. Still with cough. No CP. Exam alert Comfortable Mucus membranes dry Heart distant Lungs clear at this time. No edema I/P 1. Resp failure 2. CHF Further diagnoses and plan as above.
--- NOTE | 2017-11-02 07:33 | Pulmonology Progress Note ---
Date of Encounter: 11/02/17 Time of Encounter: 07:00 Assessment and Plan (1) Hemoptysis Current Visit: No Status: Acute Again there is only minor hemoptysis and there is no significant changes in hemoglobin. I explained to her anxiety would worsen lately she understand that. Continue current treatment and if her hemoptysis worsen we will plan to arrange bronchoscopy. Subjective Principal diagnosis: diastolic CHF Interval history: Patient is still have some hemoptysis and she is anxious about that, but she feels better and she is asking when she can go home Objective PUL Vital signs: Last Vital Signs Temp 98.1 F 11/01/17 19:20 Pulse 60 11/02/17 04:53 Resp 22 11/02/17 04:53 BP 136/82 11/02/17 04:53 Pulse Ox 96 11/02/17 04:53 General appearance: no acute distress ENT: oropharynx moist Effort: normal Auscultation: bilateral: rhonchi Percussion: bilateral: not dull Cardiovascular: regular rate and rhythm Gastrointestinal: normoactive bowel sounds Extremities: no cyanosis normal mental status anxious Results - Laboratory Findings CBC and BMP: 11/02/17 01:20 11/02/17 01:20 PT/INR, D-dimer PT 15.8 Seconds (9.4-12.1) H 10/31/17 04:08 Abnormal lab findings: Abnormal lab results WBC 14.9 K/mcL (4.3-11.1) H 11/02/17 01:20 RBC 3.35 M/mcL (3.82-4.97) L 11/02/17 01:20 Hgb 9.7 g/dL (11.5-15.4) L 11/02/17 01:20 Hct 31.3 % (35.3-44.9) L 11/02/17 01:20 MCHC 31.0 g/dL (31.6-35.5) L 11/02/17 01:20 RDW 15.5 % (11.5-14.5) H 11/02/17 01:20 Neutrophils # 12.6 K/mcL (1.6-8.9) H 11/02/17 01:20 ESR 71 mm/hr (0-15) H 10/31/17 11:14 PT 15.8 Seconds (9.4-12.1) H 10/31/17 04:08 APTT 44.0 Seconds (26.0-36.0) H 10/30/17 07:45 Carbon Dioxide 36 mEq/L (23-29) H 11/02/17 01:20 BUN 27 mg/dL (8-23) H 11/02/17 01:20 Est GFR ( Amer) 59 (> 60) L 11/02/17 01:20 Est GFR (Non-Af Amer) 49 (> 60) L 11/02/17 01:20 Glucose 149 mg/dL (70-105) H 11/02/17 01:20 POC Glucose 159 mg/dL (70-99) H 11/01/17 11:21 Calculated Osmolality 308 (280-300) H 11/02/17 01:20 Calcium 8.0 mg/dL (8.6-10.3) L 11/02/17 01:20 Magnesium 1.3 mg/dL (1.6-2.6) L 11/02/17 01:20 Troponin I 0.14 ng/mL (< 0.04) H* 10/30/17 00:07 C-Reactive Protein 54 mg/L (Less than 10) H 10/31/17 11:14 B-Natriuretic Peptide 741 pg/mL (Less than 100) H 10/30/17 08:55 HDL Cholesterol 26 mg/dL (40-59) L 10/30/17 00:07 Fluid Appearance Hazy (Clear) A 10/31/17 11:03 - Microbiology Findings Microbiology Findings: Microbiology, Last 48 Hours 10/30/17 20:00 Sputum Culture - Final Sputum 10/31/17 11:03 Acid Fast Stain - Final Right Upper Lobe Lung 10/31/17 11:03 Respiratory Culture - Preliminary Right Upper Lobe Lung No growth. 10/31/17 11:03 Gram Stain - Final Right Upper Lobe Lung - Clinical Findings Intake & Output: Intake & Output 11/01/17 11/01/17 11/02/17 15:59 23:59 07:59 Intake Total 360 / 360 340 / 340 Output Total 600 / 600 700 / 700 725 / 725 Balance -240 / -240 -360 / -360 -725 / -725 Weight 68.5 kg - VTE Documentation of Mechanical Device: Intermittent pneumatic compression device Consult Discharge Plan - Plan Referrals: Sloane Murphy, [Primary Care Provider] -
[2017-11-02] MEDS: Furosemide 20 MG/2 ML VIAL IVP SCH ×3 (08:32→18:02)
[2017-11-02] MEDS: BuPROPion XL (24 HR) 150 MG TABLET PO SCH (08:40)
[2017-11-02] MEDS: Magnesium Oxide 400 MG TABLET PO SCH ×3 (08:40→21:31)
[2017-11-02] MEDS: Multivit/Ca/Min/Fe/FA 1 TAB TABLET PO SCH (08:40)
[2017-11-02] MEDS: Aspirin 81 MG TAB.CHEW PO SCH (08:41)
[2017-11-02] MEDS: Cyanocobalamin (B-12) 1,000 MCG TABLET PO SCH (08:41)
[2017-11-02] MEDS: *HR* Amiodarone 200 MG TABLET PO SCH (08:41)
[2017-11-02] MEDS: Cholecalciferol (D-3) 1,000 UNIT TABLET PO SCH (08:42)
[2017-11-02] MEDS: ALOSETRON HCL 0.5 MG PO SCH ×2 (08:46→21:31)
[2017-11-02] MEDS: Colestipol Hcl [Colestid] 1 GM PO SCH ×2 (08:46→21:31)
[2017-11-02] MEDS: Insulin LISPRO 300 UNITS/3 ML VIAL SQ SCH ×4 (08:59→21:30)
[2017-11-02] MEDS: Beclomethasone 80mcg MDI IH SCH ×2 (11:01→20:17)
--- NOTE | 2017-11-02 22:30 | Event Note ---
Date of Encounter: 11/02/17 Time of Encounter: 21:38 Alerted by patient's nurse of continued hemoptysis and patient's dependence on CPAP all day. Nurse stated that patient p.m. meds and SPO2 dropped to 50% so CPAP was replaced. CPAP replaced and SPO2 increased to 93%. Stat portable CXR ordered which showed a left subclavian cardiac device is again noted. Chronic deformity of the proximal left humerus is present. The heart size and visualized mediastinal contours are stable. There is patchy bilateral multifocal airspace disease not changed since the prior study. No large pleural effusion. Nurse reports hemoptysis has not increased in amount since yesterday. Will continue CPAP and continue to monitor pt. closely. Dr. Painting' s note recommends continue current treatment and if hemoptysis does worsen will plan to arrange bronchoscopy.
--- NOTE | 2017-11-02 23:42 | Electrocardiograph Report ---
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
--- NOTE | 2017-11-03 00:45 | Electrocardiograph Report ---
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
[2017-11-03] MEDS: Ipratropium/Albuterol Neb 3 ML IH SCH ×6 (03:40→23:22)
[2017-11-03 04:46] LABS: Basophils % 0.1 %; Eosinophils # 0.7 K/mcL (0.0-0.6); Eosinophils % 5.2 %; Hematocrit 31.1 % (35.3-44.9); Hemoglobin 9.6 g/dL (11.5-15.4); Immature Granulocytes % 0.4 % (0-4); Lymphocytes # 1.5 K/mcL (0.6-4.6); Lymphocytes % 11.8 %; Mean Corpuscular HGB Conc 30.9 g/dL (31.6-35.5); Mean Corpuscular Hemoglobin 29.3 pg (28.0-33.3); Mean Corpuscular Volume 94.8 fL (83.0-100.0); Mean Platelet Volume 10.5 fL (9.4-12.4); Monocytes # 0.7 K/mcL (0.0-1.3); Monocytes % 5.6 %; Neutrophils # 9.7 K/mcL (1.6-8.9); Platelet Count 306 K/mcL (140-400); Red Blood Count 3.28 M/mcL (3.82-4.97); Red Cell Distribution Width 15.3 % (11.5-14.5); Segmented Neutrophils % 76.9 %
[2017-11-03] MEDS: Doxycycline 100 MG in 0.9 % Sodium Chloride Mini Bag 100 ML IVPB SCH ×2 (04:46→20:37)
[2017-11-03 04:54] LABS: BUN/Creatinine Ratio 22 (6-26); Blood Urea Nitrogen 21 mg/dL (8-23); Calcium 8.5 mg/dL (8.6-10.3); Carbon Dioxide 36 mEq/L (23-29); Chloride 101 mEq/L (98-107); Glucose 116 mg/dL (70-105); INR 1.4; Magnesium 1.5 mg/dL (1.6-2.6); Osmolality,Calculated 296 (280-300); Potassium 3.9 mEq/L (3.5-5.1); Prothrombin Time 15.1 Seconds (9.4-12.1); Sodium 141 mEq/L (136-145); eGFR For African Americans > 60 (> 60); eGFR For Non-African Americans 59 (> 60)
[2017-11-03] MEDS: Beclomethasone 80mcg MDI IH SCH ×2 (07:30→20:00)
[2017-11-03] MEDS: Insulin LISPRO 300 UNITS/3 ML VIAL SQ SCH ×4 (07:50→20:40)
[2017-11-03 07:57] LABS: Influenza A PCR Body Fluid NOT DETECTED; Influenza B PCR Body Fluid NOT DETECTED; RVP Body Fluid Source BAL RUL
--- NOTE | 2017-11-03 08:37 | Internal Med Progress Note ---
<Rasheed Thibodeaux - Last Filed: 11/03/17 15:22> Date of Encounter: 11/03/17 Time of Encounter: 08:36 - Assessment and plan (1) Acute on chronic respiratory failure Current Visit: Yes Status: Acute Assessment and plan: Acute respiratory failure with hypoxia Elevated ADE titer 1:320, ESR 71, CRP 54, normal myeloperoxidase Ab 1, Serine protease 3 Ab 2. Differentials include vasculitis vs CHF/pulmonary edema vs inflammatory lung disease vs pulmonary alveolar proteinosis vs PCP pneumonia or sarcoidosis. CT chest on 10/30/17 showed patchy ground-glass opacities with crazy paving pattern throughout both lungs. This is likely contribute to patient's current respiratory failure. CXR completed 11/02/17 revealed diffuse bilateral airspace disease similar to the prior study, no large pleural effusion. Patient is requiring high FiO2 and had desaturation down to SpO2 50% while wearing CPAP. Noninvasive ventilation is recommended that this time, switched to BiPap. Per pulmonology, bronchoscopy 10/31/17 did not suggest alveolar hemorrhage. Hydrostatic pulmonary edema is most likely the cause of patient's respiratory failure. Patient received 2 days of Levaquin Switched to IV Doxycycline (Day 4) for atypical coverage. Continue BiPAP prn given hypoxia and history of sleep apnea. Contiue diuresis, scheduled Duoneb and supplemental oxygen. Continue wean off oxygen to keep SPO2 around 90%. Continue to monitor closely. If her hemoptysis worsens, will plan to arrange repeat bronchoscopy per pulmonology. Given possible elevated ADE and possible vasculitis, will resume empiric systemic steroids. She remains moderate to high risk due to potential for worsening clinical status. Qualifiers: Respiratory failure complication: hypoxia Qualified Code(s): J96.21 - Acute and chronic respiratory failure with hypoxia (2) (HFpEF) heart failure with preserved ejection fraction Current Visit: Yes Status: Acute Assessment and plan: Echo on 10/30/17 showed LVEF 60% with moderate LV diastolic dysfunction. Net -3737 mL since admission BNP 741 --> 703. Patient appears hypervolemic, will continue diuresis with Lasix IV but consider discontinuation if renal function worsens. Decreased dose of BB due to bradycardia Strict I/O and daily weight. Peck inserted 11/03/17 Cardiology following (3) Pneumonia Current Visit: Yes Status: Suspected Assessment and plan: Leukocytosis 13.2 (on admission) --> 7.4 --> 16.6 --> 12.6 Negative respiratory infection panel. BAL cultures show no growth. Switched to IV doxycycline (Day 4) for atypical coverage as recommended by pulmonology. Qualifiers: Pneumonia type: due to unspecified organism Laterality: bilateral Lung location: unspecified part of lung Qualified Code(s): J18.9 - Pneumonia, unspecified organism (4) DERREK (acute kidney injury) Current Visit: Yes Status: Acute Assessment and plan: SCr improving, SCr < 1.0 at baseline. Likely related to diuretic use. Patient appears hypervolemic, will continue Lasix 20mg BID IV but consider discontinuation if renal function gets worse. Avoid nephrotoxins Continue to monitor renal function and electrolytes. (5) Elevated troponin Current Visit: Yes Status: Acute Assessment and plan: Elevated troponins (0.14, 0.18, 0.14). Intermittent chest pain unchanged. EKG unremarkable. Per cardiology, likely demand ischemia in the setting of respiratory failure. Continue aspirin. No further cardiac testing warranted as inpatient per cardiology (6) PAF (paroxysmal atrial fibrillation) Current Visit: Yes Status: Chronic Assessment and plan: Currently rate control with metoprolol in sinus rhythm. 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 (7) Diabetes mellitus, type 2 Current Visit: No Status: Chronic Assessment and plan: Continue ADA diet, sliding scale insulin and glucose monitoring. Qualifiers: Diabetes mellitus warp knitter insulin use: without warp knitter use Diabetes mellitus complication status: with unspecified complications Qualified Code(s) : E11.8 - Type 2 diabetes mellitus with unspecified complications (8) Hypomagnesemia Current Visit: Yes Status: Acute Assessment and plan: Mag 1.5 Supplement Mag Continue to monitor (9) DVT prophylaxis Current Visit: Yes Status: Acute Assessment and plan: Not on anticoagulation due history of alveolar hemorrhage. EPCD as mechanical DVT prophylaxis. (10) IBS (irritable bowel syndrome) Current Visit: No Status: Chronic Assessment and plan: Continue home Levsin Qualifiers: Irritable bowel syndrome type: with diarrhea Qualified Code(s): K58.0 - Irritable bowel syndrome with diarrhea - Time Spent With Patient Total time spent is greater than 50% in coordination of care (as documented) at patient's floor/unit and/or counseling patient: - Subjective Interval history: Patient seen and examined. Patient reports desaturation down to SpO2 50% while wearing CPAP and was switched to BiPap. Patient denies hemoptysis overnight. CXR completed last night revealed diffuse bilateral airspace disease similar to the prior study, no large pleural effusion. - Constitutional Vitals: Temp Pulse Resp BP Pulse Ox 97.9 F 56 16 125/69 90 11/03/17 07:31 11/03/17 07:31 11/03/17 07:31 11/03/17 07:31 11/03/17 07:51 General appearance: Present: cooperative, mild distress (wearing BiPap), A&O X 3 , answers questions appropriately - Head Head exam: Present: atraumatic, normocephalic - Eye Eye exam: Present: PERRL, conjuntiva pink, sclera anicteric Pupils: Present: PERRL - ENT ENT exam: Present: mucous membranes dry, normal oropharynx - Neck Neck exam general surgery: Present: supple, trachea midline. Absent: lymphadenopathy - Respiratory Respiratory exam: Present: rhonchi (bilateral). Absent: accessory muscle use, decreased breath sounds, rales, respiratory distress, tachypnea - Cardiovascular Cardiovascular exam: Present: bradycardia, irregular rhythm, +S1, +S2. Absent: diastolic murmur, gallop, rubs, systolic murmur - GI/Abdominal GI/Abdominal exam: Present: normal bowel sounds, soft, no peritoneal signs. Absent: distended, guarding, tenderness - Extremities Exam Extremities exam: Present: warm, radial pulses palpable and symmetrical. Absent : calf tenderness, cyanotic - Back Exam Back exam: Present: normal inspection. Absent: tenderness - Neurological Exam Neurological exam: Present: alert, CN II-XII intact, oriented X3, no focal deficits. Absent: altered, pronater drift, facial droop, speech deficit - Psychiatric Psychiatric exam: Present: anxious, normal mood - Skin Skin exam: Present: dry, intact, normal color, warm Internal Medicine: Result - Labs CBC & Chem 7: 11/03/17 04:20 11/03/17 04:20 Labs: Short CBC 11/03/17 Range/Units 04:20 WBC 12.6 H (4.3-11.1) K/mcL Hgb 9.6 L (11.5-15.4) g/dL Hct 31.1 L (35.3-44.9) % Plt Count 306 (140-400) K/mcL Neutrophils # 9.7 H (1.6-8.9) K/mcL BMP 11/03/17 04:20 Sodium 141 Potassium 3.9 Chloride 101 Carbon Dioxide 36 H BUN 21 Creatinine 0.95 Glucose 116 H Calcium 8.5 L - ABG Interpretation ABG results: PT/INR, D-dimer PT 15.1 Seconds (9.4-12.1) H 11/03/17 04:20 - Pulse Oximetry Interpretation Digit-Finger O2 Sat by Pulse Oximetry: 84 (CPAP) Actions taken: placed on BiPAP - Impressions Impressions Chest X-Ray 11/02/17 21:46 IMPRESSION: Diffuse bilateral airspace disease is similar to the prior study. D/ / Nicolasa Park Cha, MD / Nicolasa Park Cha, MD Interpreting Provider: Nicolasa Park Cha, MD - VTE Documentation of Mechanical Device: Intermittent pneumatic compression device Consult Discharge Plan - Plan Referrals: Sloane Murphy DO [Primary Care Provider] - <Lloyd [place] - Last Filed: 11/03/17 18:02> Date of Encounter: 11/03/17 - Assessment and plan (1) Acute on chronic respiratory failure Current Visit: Yes Status: Acute Qualifiers: Respiratory failure complication: hypoxia Qualified Code(s): J96.21 - Acute and chronic respiratory failure with hypoxia (2) Pneumonia Current Visit: Yes Status: Suspected Qualifiers: Pneumonia type: due to unspecified organism Laterality: bilateral Lung location: unspecified part of lung Qualified Code(s): J18.9 - Pneumonia, unspecified organism (3) Diabetes mellitus, type 2 Current Visit: No Status: Chronic Qualifiers: Diabetes mellitus warp knitter insulin use: without warp knitter use Diabetes mellitus complication status: with unspecified complications Qualified Code(s) : E11.8 - Type 2 diabetes mellitus with unspecified complications (4) Hypomagnesemia Current Visit: Yes Status: Acute (5) PAF (paroxysmal atrial fibrillation) Current Visit: Yes Status: Chronic (6) (HFpEF) heart failure with preserved ejection fraction Current Visit: Yes Status: Acute (7) DERREK (acute kidney injury) Current Visit: Yes Status: Acute (8) IBS (irritable bowel syndrome) Current Visit: No Status: Chronic Qualifiers: Irritable bowel syndrome type: with diarrhea Qualified Code(s): K58.0 - Irritable bowel syndrome with diarrhea (9) Elevated troponin Current Visit: Yes Status: Acute (10) DVT prophylaxis Current Visit: Yes Status: Acute - Time Spent With Patient Total time spent is greater than 50% in coordination of care (as documented) at patient's floor/unit and/or counseling patient: - Constitutional Vitals: Temp Pulse Resp BP Pulse Ox 98.2 F 57 16 102/62 99 11/03/17 15:44 11/03/17 15:44 11/03/17 15:44 11/03/17 15:44 11/03/17 16:14 Internal Medicine: Result - Labs CBC & Chem 7: 11/03/17 04:20 11/03/17 04:20 Labs: Short CBC 11/03/17 Range/Units 04:20 WBC 12.6 H (4.3-11.1) K/mcL Hgb 9.6 L (11.5-15.4) g/dL Hct 31.1 L (35.3-44.9) % Plt Count 306 (140-400) K/mcL Neutrophils # 9.7 H (1.6-8.9) K/mcL BMP 11/03/17 04:20 Sodium 141 Potassium 3.9 Chloride 101 Carbon Dioxide 36 H BUN 21 Creatinine 0.95 Glucose 116 H Calcium 8.5 L - ABG Interpretation ABG results: PT/INR, D-dimer PT 15.1 Seconds (9.4-12.1) H 11/03/17 04:20 - Impressions Impressions Chest X-Ray 11/02/17 21:46 IMPRESSION: Diffuse bilateral airspace disease is similar to the prior study. D/ / Nicolasa Park Cha, MD / Nicolasa Park Cha, MD Interpreting Provider: Nicolasa Park Cha, MD - Attending Attestation I examined this patient and my medical decision-making was reviewed with the Resident Physician on 11/03/17. I agree with the documented findings, disposition and treatment plan as described except to the extent set forth below. Ms Hebert is currently admitted for acute resp failure due to CHF. She remains moderate to high risk due to potential for worsening clinical status. Ms Hebert was more hypoxic earlier today. Feels dyspneic. No fever or chills. Coughing. Appetite OK. Exam alert. Moderate resp distress Mucus membranes dry Heart distant Rhonchi present Abd soft I/P 1. Resp failure 2. CHF Further diagnoses and plan as above.
[2017-11-03] MEDS: Furosemide 20 MG/2 ML VIAL IVP SCH ×2 (08:46→15:58)
[2017-11-03 09:27] LABS: Myeloperoxidase Ab 1 AU/mL (0-19); Serine Protease-3 Antibody 2 AU/mL (0-19)
[2017-11-03 09:28] LABS: RSV PCR Body Fluid NOT DETECTED
--- NOTE | 2017-11-03 11:12 | Cardiology Progress Note ---
Date of Encounter: 11/03/17 Time of Encounter: 11:09 Assessment and Plan (1) Diastolic CHF Current Visit: Yes Status: Acute BNP 741 on admission. EF preserved 60% with moderate diastolic dysfunction on TTE. Chest CT 10/30/17 small left sided pleural effusion. CXR repeated last night. Diffuse bilateral airspace disease is similar to the prior study. No large pleural effusions were seen. Recheck BNP. Dyspnea worsened overnight, now on CPAP. Current hemoptysis with hx of alveolar hemorrhage. Underwent bronchoscopy which was not consistent with alveolar hemorrhage. Dyspnea seems out of proportion to her diastolic dysfunction. She appears euvolemic on exam and there are no pleural effusions noted on CXR last night. Agree with IV Lasix--20mg BID. Cumulative I/O -3977mL. She has diuresed well. Switch to maintenance PO Lasix at d/c. Recommend daily weights, strict I/Os, Na and fluid restriction. Will further discuss with Dr. Masters and have him evaluate pt for any further cardiac recommendations. Qualifiers: Heart failure chronicity: acute on chronic Qualified Code(s): I50.33 - Acute on chronic diastolic (congestive) heart failure (2) Elevated troponin Current Visit: Yes Status: Acute Elevated troponins--flat and adynamic--0.14, 0.18, 0.14 in setting of diastolic CHF and possible PNA. Last [facility] 05/2016: Coronary arteries angiographically normal. TTE EF preserved, normal wall motion. Moderate LVDD. Pt denies chest pain. (3) Atrial fibrillation Current Visit: No Status: Chronic Hx of atrial flutter ablation currently in normal sinus rhythm. Continue BB and amiodarone. Unable to tolerate anticoagulation due to previous alveolar hemorrhage. She continues to be on aspirin for stroke risk reduction. TTE EF 60%, moderate diastolic dysfunction. Qualifiers: Atrial fibrillation type: paroxysmal Qualified Code(s): I48.0 - Paroxysmal atrial fibrillation Discussion w patient/family: The assessment and plan as outlined above was discussed with the patient and/or family members who expressed understanding and agreement. All questions were answered. Thank you for involving us in the care of your patient. Please call with any questions. I will discuss all the above with Dr. Masters and make changes as necessary. Subjective Principal diagnosis: diastolic CHF Interval history: Reconsulted due to worsening respiratory status thought to be secondary to diastolic CHF. TTE completed during stay--EF 60%, mild cLVH, moderate LVDD, moderate phtn. BNP 741 on admission. Underwent bronchoscopy last week for hemoptysis, not consisent with alveolar hemorrhage. Pt denies chest pain. Dyspnea has worsened and she is currently on CPAP. Cumulative I/O -3977mL. CXR completed last night. Diffuse bilateral airspace disease is similar to the prior study. No large pleural effusion. Pulmonology following, feels symptoms are diastolic CHF. Objective Vital Signs, Last 4 Hours Temp Pulse Resp BP Pulse Ox 11/03/17 07:51 90 11/03/17 07:31 97.9 F 56 16 125/69 94 Vital Signs Temp Pulse Resp BP Pulse Ox 11/03/17 07:51 90 11/03/17 07:31 97.9 F 56 16 125/69 94 11/03/17 05:00 98 F 57 16 120/66 92 11/03/17 03:40 23 129/71 88 11/03/17 00:00 97.4 F L 61 18 129/71 90 11/02/17 23:24 26 92 11/02/17 20:17 23 105/94 91 11/02/17 20:00 97 F L 65 18 128/74 93 11/02/17 18:31 89 11/02/17 16:38 26 105/94 94 11/02/17 15:36 97.8 F 63 15 105/94 91 11/02/17 12:05 28 88 11/02/17 12:03 97.8 F 58 15 139/70 91 Intake and Output 11/02/17 11/03/17 11/03/17 23:59 07:59 15:59 Intake Total 460 / 460 0 / 0 Output Total 200 / 200 300 / 300 Balance 260 / 260 -300 / -300 Intake: IV Fluids 100 / 100 Doxycycline 100 MG In 0.9 % 100 / 100 Sodium Chloride (Mini-Bag +) 100 ML @ 100 mls/hr IVPB Q12HR [facility] Rx#:[id number] Oral 360 / 360 0 / 0 Output: Urine 200 / 200 300 / 300 Other: Meal Dinner Percent of Meal Consumed 50% Stool Size Moderate Stool Consistency soft formed # Urine Diapers 1 2 # Bowel Movements 1 Weight 67.6 kg Blood Glucose* 146 110 Patient Weight 11/03/17 23:59 Weight 67.6 kg General: Conversant, Other (on CPAP) HEENT: Atraumatic, Normocephaly, Mucus Membranes Moist Neck: No JVD, Normal carotid pulses Cardiac: Reg Rate and Rhythm, Normal S1 and S2, No Murmur Lungs: Other (wheezes noted, coarse) Neuro: Alert and responsive, No focal deficits noted Abdomen: Soft, Non-Tender Skin: No rashes noted on visualized skin Musculoskeletal: No Chest Wall Tenderness Extremities: No Clubbing, No Cyanosis, No Edema, Normal Pulses Results 11/03/17 04:20 11/03/17 04:20 Lab Results 11/03/17 11/03/17 11/03/17 04:20 04:20 04:20 WBC 12.6 H Hgb 9.6 L Hct 31.1 L Plt Count 306 INR 1.4 Sodium 141 Potassium 3.9 Chloride 101 Carbon Dioxide 36 H BUN 21 Creatinine 0.95 Glucose 116 H Calcium 8.5 L Magnesium 1.5 L Short CBC 11/03/17 Range/Units 04:20 WBC 12.6 H (4.3-11.1) K/mcL Hgb 9.6 L (11.5-15.4) g/dL Hct 31.1 L (35.3-44.9) % Plt Count 306 (140-400) K/mcL Neutrophils # 9.7 H (1.6-8.9) K/mcL BMP 11/03/17 Range/Units 04:20 Sodium 141 (136-145) mEq/L Potassium 3.9 (3.5-5.1) mEq/L Chloride 101 (98-107) mEq/L Carbon Dioxide 36 H (23-29) mEq/L BUN 21 (8-23) mg/dL Creatinine 0.95 (0.60-1.20) mg/dL Glucose 116 H (70-105) mg/dL Calcium 8.5 L (8.6-10.3) mg/dL Impressions Chest X-Ray 11/02/17 21:46 IMPRESSION: Diffuse bilateral airspace disease is similar to the prior study. D/ / Nicolasa Park Cha, MD / Nicolasa Park Cha, MD Interpreting Provider: Nicolasa Park Cha, MD Active Medications Albuterol Sulfate (Proventil Neb) 2.5 mg IH Q2H PRN; Protocol PRN Reason: Shortness Of Breath/Wheezing Stop: 05/01/18 17:10 Albuterol/Ipratropium (Duoneb) 3 ml IH [id number] TALA Stop: 05/01/18 20:01 Last Admin: 11/03/17 11:04 Dose: 3 ml Amiodarone HCl (Cordarone) 200 mg PO DAILY TALA Stop: 05/01/18 09:01 Last Admin: 11/02/17 08:41 Dose: 200 mg Aspirin (Aspirin) 81 mg PO DAILY TALA Stop: 05/01/18 09:01 Last Admin: 11/02/17 08:41 Dose: 81 mg Baclofen (Lioresal) 10 mg PO TID PRN PRN Reason: Muscle Spasm Stop: 04/30/18 18:31 Last Admin: 11/02/17 06:36 Dose: 10 mg Beclomethasone Dipropionate (Qvar 80 Mcg) 1 puff IH BIDR TALA PRN Reason: Protocol Stop: 04/30/18 22:01 Last Admin: 11/03/17 07:30 Dose: 1 puff Benzonatate (Tessalon) 100 mg PO TID PRN PRN Reason: Cough Stop: 05/01/18 21:46 Last Admin: 10/31/17 02:36 Dose: 100 mg Bupropion HCl (Wellbutrin Xl) 150 mg PO DAILY TALA Stop: 05/01/18 09:01 Last Admin: 11/02/17 08:40 Dose: 150 mg Calcium Carbonate (Tums) 1,000 mg PO BID TALA Stop: 04/30/18 21:01 Last Admin: 11/02/17 21:31 Dose: 1,000 mg Citalopram Hydrobromide (Celexa) 20 mg PO DAILY TALA Stop: 05/01/18 09:01 Last Admin: 11/02/17 08:42 Dose: 20 mg Cyanocobalamin (Vitamin B12) 1,000 mcg PO DAILY TALA Stop: 05/01/18 09:01 Last Admin: 11/02/17 08:41 Dose: 1,000 mcg Dextrose/Water (Dextrose 50% (Syg)) 25 ml IVP AD PRN PRN Reason: Hypoglycemia Stop: 04/30/18 20:32 Ferrous Sulfate (Ferrous Sulfate) 325 mg PO DAILY TALA Stop: 05/01/18 09:01 Last Admin: 11/02/17 08:41 Dose: 325 mg Furosemide (Lasix) 20 mg IVP BIDDIURETIC TALA Stop: 04/30/18 21:01 Last Admin: 11/03/17 08:46 Dose: 20 mg Glucagon (Glucagen) 1 mg IM ONCE PRN PRN Reason: Hypoglycemia Stop: 04/30/18 20:32 Glucose (Gluctose) 15 gm PO ONCE PRN PRN Reason: Hypoglycemia Stop: 04/30/18 20:32 Glucose (Gluctose) 30 gm PO ONCE PRN PRN Reason: Hypoglycemia Stop: 04/30/18 20:32 Hyoscyamine (Levsin Sl) 0.125 mg SL Q4H PRN PRN Reason: Abdominal Cramps Stop: 04/30/18 18:31 Dextrose (Dextrose 5%) 1,000 mls @ 100 mls/hr IVC .Q10H PRN PRN Reason: HYPOGLYCEMIA Stop: 04/30/18 20:32 Doxycycline Hyclate 100 mg/ (Sodium Chloride) 100 mls @ 100 mls/hr IVPB Q12HR TALA Stop: 05/02/18 18:01 Last Admin: 11/03/17 04:46 Dose: 100 mls/hr Insulin Human Lispro (Humalog) 0 units SQ HS TALA PRN Reason: Protocol Stop: 04/30/18 21:01 Last Admin: 11/02/17 21:30 Dose: Not Given Insulin Human Lispro (Humalog) 0 units SQ TIDAC TALA PRN Reason: Protocol Stop: 05/01/18 07:31 Last Admin: 11/03/17 07:50 Dose: Not Given Magnesium Oxide (Mag-Ox) 400 mg PO TID TALA PRN Reason: Protocol Stop: 04/30/18 21:01 Last Admin: 11/02/17 21:31 Dose: 400 mg Meclizine HCl (Antivert) 25 mg PO DAILY PRN PRN Reason: DIZZINESS Stop: 04/30/18 18:31 Last Admin: 11/02/17 06:36 Dose: 25 mg Metoprolol Tartrate (Lopressor) 50 mg PO BID TALA Stop: 04/30/18 21:01 Last Admin: 11/02/17 21:31 Dose: 50 mg Multivitamins/Calcium (Thera M Plus) 1 tab PO DAILY TALA Stop: 05/01/18 09:01 Last Admin: 11/02/17 08:40 Dose: 1 tab Naloxone HCl (Narcan) 0.4 mg IVP Q2MIN PRN PRN Reason: SEE COMMENTS Stop: 04/30/18 20:27 Nitroglycerin (Nitroglycerin) 0.4 mg SL Q5MIN PRN PRN Reason: Chest Pain Stop: 04/30/18 15:06 Pharmacy Profile Note (Patient Taking Own Medication) 1 each PO BID TALA Stop: 04/30/18 21:01 Last Admin: 11/02/17 21:31 Dose: Not Given Pharmacy Profile Note (Patient Taking Own Medication) 1 each PO BID TALA Stop: 04/30/18 21:01 Last Admin: 11/02/17 21:31 Dose: Not Given Potassium Chloride (Potassium Chloride) 20 meq PO DAILY [facility] Stop: 05/01/18 09:01 Last Admin: 11/02/17 08:41 Dose: 20 meq Vitamin D (Vitamin D) 2,000 unit PO DAILY TALA Stop: 05/01/18 09:01 Last Admin: 11/02/17 08:42 Dose: 2,000 unit - Imaging and Cardiology Echo: report reviewed - EKG Interpretation EKG results cardiology: other (12 hr tele AVG HR 54, SR.) - VTE Documentation of Mechanical Device: Intermittent pneumatic compression device Consult Discharge Plan - Plan Referrals: Sloane Murphy DO [Primary Care Provider] -
[2017-11-03] MEDS: *HR* Amiodarone 200 MG TABLET PO SCH (12:56)
[2017-11-03] MEDS: Cyanocobalamin (B-12) 1,000 MCG TABLET PO SCH (12:56)
[2017-11-03] MEDS: Multivit/Ca/Min/Fe/FA 1 TAB TABLET PO SCH (12:56)
[2017-11-03] MEDS: Magnesium Oxide 400 MG TABLET PO SCH ×3 (12:56→20:42)
[2017-11-03] MEDS: Cholecalciferol (D-3) 1,000 UNIT TABLET PO SCH (12:56)
[2017-11-03] MEDS: BuPROPion XL (24 HR) 150 MG TABLET PO SCH (12:56)
[2017-11-03] MEDS: Aspirin 81 MG TAB.CHEW PO SCH (12:56)
[2017-11-03] MEDS: Colestipol Hcl [Colestid] 1 GM PO SCH ×2 (12:57→20:42)
[2017-11-03] MEDS: ALOSETRON HCL 0.5 MG PO SCH (12:57)
--- NOTE | 2017-11-03 13:02 | Pulmonology Progress Note ---
Date of Encounter: 11/03/17 Time of Encounter: 10:30 Assessment and Plan (1) Hemoptysis Current Visit: No Status: Acute Again there is only minor hemoptysis and there is no significant changes in hemoglobin. I explained to her anxiety would worsen lately she understand that. Continue current treatment and if her hemoptysis worsen we will plan to arrange bronchoscopy. (2) Acute respiratory failure with hypoxia Current Visit: No Status: Acute Patient is requiring high FiO2 and chest x-ray with bilateral airspace disease and still suspect this is cardiogenic, however other inflammatory lung disease in the differential diagnosis. 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 Noninvasive ventilation is recommended that this time and no evidence of hemoptysis at this time. If no improvement then consider empiric mentally systemic steroid. (3) Pulmonary edema Current Visit: No Status: Acute Qualifiers: Chronicity: acute Qualified Code(s): J81.0 - Acute pulmonary edema Subjective Principal diagnosis: diastolic CHF Interval history: Patient denies any hemoptysis however she is requiring noninvasive ventilation support and chest x-ray shows infiltrates. She is requiring higher FiO2 also. Objective PUL Vital signs: Last Vital Signs Temp 97.6 F 11/03/17 11:41 Pulse 55 11/03/17 11:41 Resp 16 11/03/17 11:41 BP 135/79 11/03/17 11:41 Pulse Ox 92 11/03/17 11:41 General appearance: appears uncomfortable Eyes: nonicteric ENT: oropharynx dry Neck: supple Effort: mildly labored Auscultation: bilateral: rales (Left more than right) Percussion: bilateral: not dull Cardiovascular: regular rate and rhythm Gastrointestinal: normoactive bowel sounds, non-distended Extremities: no cyanosis normal mental status, non-focal exam mood appropriate Results - Laboratory Findings CBC and BMP: 11/03/17 04:20 11/03/17 04:20 PT/INR, D-dimer PT 15.1 Seconds (9.4-12.1) H 11/03/17 04:20 Abnormal lab findings: Abnormal lab results WBC 12.6 K/mcL (4.3-11.1) H 11/03/17 04:20 RBC 3.28 M/mcL (3.82-4.97) L 11/03/17 04:20 Hgb 9.6 g/dL (11.5-15.4) L 11/03/17 04:20 Hct 31.1 % (35.3-44.9) L 11/03/17 04:20 MCHC 30.9 g/dL (31.6-35.5) L 11/03/17 04:20 RDW 15.3 % (11.5-14.5) H 11/03/17 04:20 Neutrophils # 9.7 K/mcL (1.6-8.9) H 11/03/17 04:20 Eosinophils # 0.7 K/mcL (0.0-0.6) H 11/03/17 04:20 ESR 71 mm/hr (0-15) H 10/31/17 11:14 PT 15.1 Seconds (9.4-12.1) H 11/03/17 04:20 APTT 44.0 Seconds (26.0-36.0) H 10/30/17 07:45 Carbon Dioxide 36 mEq/L (23-29) H 11/03/17 04:20 Est GFR (Non-Af Amer) 59 (> 60) L 11/03/17 04:20 Glucose 116 mg/dL (70-105) H 11/03/17 04:20 POC Glucose 115 mg/dL (70-99) H 11/03/17 11:48 Calcium 8.5 mg/dL (8.6-10.3) L 11/03/17 04:20 Magnesium 1.5 mg/dL (1.6-2.6) L 11/03/17 04:20 Troponin I 0.14 ng/mL (< 0.04) H* 10/30/17 00:07 C-Reactive Protein 54 mg/L (Less than 10) H 10/31/17 11:14 B-Natriuretic Peptide 703 pg/mL (Less than 100) H 11/03/17 11:17 HDL Cholesterol 26 mg/dL (40-59) L 10/30/17 00:07 Fluid Appearance Hazy (Clear) A 10/31/17 11:03 ADE Titer 1:320 (<1:80) H 10/31/17 11:14 - Microbiology Findings Microbiology Findings: Microbiology, Last 48 Hours 10/31/17 11:03 Respiratory Culture - Final Right Upper Lobe Lung No growth. 10/30/17 20:00 Sputum Culture - Final Sputum 10/31/17 11:03 Acid Fast Stain - Final Right Upper Lobe Lung - Diagnostic Findings Chest x-ray: report reviewed, image reviewed - Clinical Findings Intake & Output: Intake & Output 11/02/17 11/03/17 11/03/17 23:59 07:59 15:59 Intake Total 460 / 460 0 / 0 Output Total 200 / 200 300 / 300 Balance 260 / 260 -300 / -300 Weight 67.6 kg - VTE Documentation of Mechanical Device: Intermittent pneumatic compression device Consult Discharge Plan - Plan Referrals: Sloane Murphy DO [Primary Care Provider] -
[2017-11-03 13:18] LABS: HSV Source BAL
[2017-11-03] MEDS: MethylPREDNISolone 40 MG/ML VIAL IVP SCH (15:57)
[2017-11-04] MEDS: MethylPREDNISolone 40 MG/ML VIAL IVP SCH ×4 (01:06→23:36)
[2017-11-04] MEDS: Ipratropium/Albuterol Neb 3 ML IH SCH ×6 (03:23→23:48)
[2017-11-04] MEDS: Doxycycline 100 MG in 0.9 % Sodium Chloride Mini Bag 100 ML IVPB SCH ×2 (05:51→16:51)
[2017-11-04] MEDS: Insulin LISPRO 300 UNITS/3 ML VIAL SQ SCH ×4 (08:35→20:40)
[2017-11-04] MEDS: Furosemide 20 MG/2 ML VIAL IVP SCH ×2 (08:37→16:51)
[2017-11-04] MEDS: Multivit/Ca/Min/Fe/FA 1 TAB TABLET PO SCH (08:37)
[2017-11-04] MEDS: Diltiazem CD (24hr) 120 MG CAPSULE PO SCH (08:37)
[2017-11-04] MEDS: Cyanocobalamin (B-12) 1,000 MCG TABLET PO SCH (08:37)
[2017-11-04] MEDS: BuPROPion XL (24 HR) 150 MG TABLET PO SCH (08:37)
[2017-11-04] MEDS: Cholecalciferol (D-3) 1,000 UNIT TABLET PO SCH (08:37)
[2017-11-04] MEDS: Aspirin 81 MG TAB.CHEW PO SCH (08:37)
[2017-11-04] MEDS: Magnesium Oxide 400 MG TABLET PO SCH ×3 (08:37→20:40)
[2017-11-04] MEDS: Colestipol Hcl [Colestid] 1 GM PO SCH ×2 (08:38→20:41)
--- NOTE | 2017-11-04 10:26 | Cardiology Progress Note ---
Date of Encounter: 11/04/17 Time of Encounter: 08:45 Assessment and Plan (1) Diastolic CHF Current Visit: Yes Status: Acute Per cardiology: -BNP 741, repeat BNP 700. EF preserved 60% with moderate diastolic dysfunction on TTE. -Chest CT 10/30/17 small left sided pleural effusion. -CXR repeated last night. Diffuse bilateral airspace disease is similar to the prior study. No large pleural effusions were seen. -Reports breathing status improved today, currently on high flow O2. -Current hemoptysis with hx of alveolar hemorrhage. Underwent bronchoscopy which was not consistent with alveolar hemorrhage. -She appears euvolemic on exam and there are no pleural effusions noted on CXR last night. -Agree with IV Lasix--20mg BID. Cumulative I/O -4697mL. She has diuresed well. Switch to maintenance PO Lasix at d/c. -Recommend daily weights, strict I/Os, Na and fluid restriction. -will continue to monitor. Qualifiers: Heart failure chronicity: acute on chronic Qualified Code(s): I50.33 - Acute on chronic diastolic (congestive) heart failure (2) Elevated troponin Current Visit: Yes Status: Acute Per cardiology: -Elevated troponins--flat and adynamic--0.14, 0.18, 0.14 in setting of diastolic CHF and possible PNA. -Last [facility] 05/2016: Coronary arteries angiographically normal. -TTE EF preserved, normal wall motion. Moderate LVDD. -Pt denies chest pain. -Do not suspect NSTEMI, suspect demand ischemia. NO cadiac rehab consult warranted (3) Atrial fibrillation Current Visit: No Status: Chronic Per cardiology: -Hx of atrial flutter ablation currently in normal sinus rhythm. 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 -She continues to be on aspirin for stroke risk reduction. -TTE EF 60%, moderate diastolic dysfunction. -Per , amiodarone was stopped due ot worsening respiratory status. Now on CCB. -Will continue to monitor. Qualifiers: Atrial fibrillation type: paroxysmal Qualified Code(s): I48.0 - Paroxysmal atrial fibrillation (4) History of ventricular tachycardia Current Visit: Yes Status: Chronic Per cardiology: -History of VT, has ICD. -was on amiodarone in outpatient setting, however now stopped due to respiratory status. -Now on CCB. -WIll consult EP in am for further recommendations. Discussion w patient/family: The assessment and plan as outlined above was discussed with the patient who expressed understanding and agreement. All questions were answered. Thank you for involving us in the care of your patient. Please call with any questions. Discussed and reviewed with . Subjective Principal diagnosis: diastolic CHF Interval history: Patient reports breathing improved today, currently wearing high flow nasal cannula. Reports edema resolved. Objective Vital Signs, Last 4 Hours Temp Pulse Resp BP Pulse Ox 11/04/17 07:38 20 96 11/04/17 07:00 97.6 F 58 28 137/72 100 General: Conversant, No Apparent Distress HEENT: Atraumatic, Normocephaly, Mucus Membranes Moist Neck: No JVD, Normal carotid pulses Cardiac: Reg Rate and Rhythm, Normal S1 and S2, No Murmur Lungs: Other (Inspiratory wheezes noted throughout. ) Neuro: Alert and responsive, No focal deficits noted Abdomen: Soft, Non-Tender Skin: No rashes noted on visualized skin Musculoskeletal: No Chest Wall Tenderness Extremities: No Clubbing, No Cyanosis, No Edema, Normal Pulses Results 11/03/17 04:20 11/03/17 04:20 Lab Results Active Medications Albuterol Sulfate (Proventil Neb) 2.5 mg IH Q2H PRN; Protocol PRN Reason: Shortness Of Breath/Wheezing Stop: 05/01/18 17:10 Albuterol/Ipratropium (Duoneb) 3 ml IH [id number] [facility] Stop: 05/01/18 20:01 Last Admin: 11/04/17 07:38 Dose: 3 ml Aspirin (Aspirin) 81 mg PO DAILY [facility] Stop: 05/01/18 09:01 Last Admin: 11/04/17 08:37 Dose: 81 mg Baclofen (Lioresal) 10 mg PO TID PRN PRN Reason: Muscle Spasm Stop: 04/30/18 18:31 Last Admin: 11/02/17 06:36 Dose: 10 mg Beclomethasone Dipropionate (Qvar 80 Mcg) 1 puff IH BIDR [facility] PRN Reason: Protocol Stop: 04/30/18 22:01 Last Admin: 11/03/17 20:00 Dose: 1 puff Benzonatate (Tessalon) 100 mg PO TID PRN PRN Reason: Cough Stop: 05/01/18 21:46 Last Admin: 10/31/17 02:36 Dose: 100 mg Bupropion HCl (Wellbutrin Xl) 150 mg PO DAILY [facility] Stop: 05/01/18 09:01 Last Admin: 11/04/17 08:37 Dose: 150 mg Calcium Carbonate (Tums) 1,000 mg PO BID [facility] Stop: 04/30/18 21:01 Last Admin: 11/04/17 08:37 Dose: 1,000 mg Citalopram Hydrobromide (Celexa) 20 mg PO DAILY [facility] Stop: 05/01/18 09:01 Last Admin: 11/04/17 08:38 Dose: 20 mg Cyanocobalamin (Vitamin B12) 1,000 mcg PO DAILY [facility] Stop: 05/01/18 09:01 Last Admin: 11/04/17 08:37 Dose: 1,000 mcg Dextrose/Water (Dextrose 50% (Syg)) 25 ml IVP AD PRN PRN Reason: Hypoglycemia Stop: 04/30/18 20:32 Diltiazem HCl (Cardizem Cd) 120 mg PO DAILY [facility] Stop: 05/06/18 09:01 Last Admin: 11/04/17 08:37 Dose: 120 mg Furosemide (Lasix) 20 mg IVP BIDDIURETIC [facility] Stop: 04/30/18 21:01 Last Admin: 11/04/17 08:37 Dose: 20 mg Glucagon (Glucagen) 1 mg IM ONCE PRN PRN Reason: Hypoglycemia Stop: 04/30/18 20:32 Glucose (Gluctose) 15 gm PO ONCE PRN PRN Reason: Hypoglycemia Stop: 04/30/18 20:32 Glucose (Gluctose) 30 gm PO ONCE PRN PRN Reason: Hypoglycemia Stop: 04/30/18 20:32 Hyoscyamine (Levsin Sl) 0.125 mg SL Q4H PRN PRN Reason: Abdominal Cramps Stop: 04/30/18 18:31 Dextrose (Dextrose 5%) 1,000 mls @ 100 mls/hr IVC .Q10H PRN PRN Reason: HYPOGLYCEMIA Stop: 04/30/18 20:32 Doxycycline Hyclate 100 mg/ (Sodium Chloride) 100 mls @ 100 mls/hr IVPB Q12HR [facility] Stop: 05/02/18 18:01 Last Admin: 11/04/17 05:51 Dose: 100 mls/hr Insulin Human Lispro (Humalog) 0 units SQ HS [facility] PRN Reason: Protocol Stop: 04/30/18 21:01 Last Admin: 11/03/17 20:40 Dose: 3 units Insulin Human Lispro (Humalog) 0 units SQ TIDAC [facility] PRN Reason: Protocol Stop: 05/01/18 07:31 Last Admin: 11/04/17 08:35 Dose: 6 units Magnesium Oxide (Mag-Ox) 400 mg PO TID [facility] PRN Reason: Protocol Stop: 04/30/18 21:01 Last Admin: 11/04/17 08:37 Dose: 400 mg Meclizine HCl (Antivert) 25 mg PO DAILY PRN PRN Reason: DIZZINESS Stop: 04/30/18 18:31 Last Admin: 11/02/17 06:36 Dose: 25 mg Methylprednisolone (Solu-Medrol) 40 mg IVP Q8HR [facility] Stop: 05/05/18 16:01 Last Admin: 11/04/17 08:37 Dose: 40 mg Multivitamins/Calcium (Thera M Plus) 1 tab PO DAILY [facility] Stop: 05/01/18 09:01 Last Admin: 11/04/17 08:37 Dose: 1 tab Naloxone HCl (Narcan) 0.4 mg IVP Q2MIN PRN PRN Reason: SEE COMMENTS Stop: 04/30/18 20:27 Nitroglycerin (Nitroglycerin) 0.4 mg SL Q5MIN PRN PRN Reason: Chest Pain Stop: 04/30/18 15:06 Pharmacy Profile Note (Patient Taking Own Medication) 1 each PO BID [facility] Stop: 04/30/18 21:01 Last Admin: 11/04/17 08:38 Dose: Not Given Potassium Chloride (Potassium Chloride) 20 meq PO DAILY [facility] Stop: 05/01/18 09:01 Last Admin: 11/04/17 08:37 Dose: 20 meq Vitamin D (Vitamin D) 2,000 unit PO DAILY [facility] Stop: 05/01/18 09:01 Last Admin: 11/04/17 08:37 Dose: 2,000 unit Laboratory Tests 10/30/17 11/03/17 11/03/17 08:55 04:20 04:20 WBC 12.6 H Hgb 9.6 L Creatinine 0.95 Magnesium 1.5 L B-Natriuretic Peptide 741 H 11/03/17 11:17 WBC Hgb Creatinine Magnesium B-Natriuretic Peptide 703 H - Imaging and Cardiology Chest Xray: report reviewed Echo: report reviewed - EKG Interpretation EKG results cardiology: other (Telemetry reviewed with average HR previous 12 hours noted to be 59, SB. PVCs and PACs noted.) - VTE Documentation of Mechanical Device: Intermittent pneumatic compression device Consult Discharge Plan - Plan Referrals: Sloane Murphy DO [Primary Care Provider] -
[2017-11-04] MEDS: Beclomethasone 80mcg MDI IH SCH ×2 (11:24→20:07)
[2017-11-04 14:46] LABS: Hematocrit 35.3 % (35.3-44.9); Hemoglobin 10.7 g/dL (11.5-15.4); Mean Corpuscular HGB Conc 30.3 g/dL (31.6-35.5); Mean Corpuscular Hemoglobin 29.1 pg (28.0-33.3); Mean Corpuscular Volume 95.9 fL (83.0-100.0); Mean Platelet Volume 10.7 fL (9.4-12.4); Platelet Count 357 K/mcL (140-400); Red Blood Count 3.68 M/mcL (3.82-4.97); Red Cell Distribution Width 14.9 % (11.5-14.5)
--- NOTE | 2017-11-04 15:25 | Internal Med Progress Note ---
<[place] - Last Filed: 11/04/17 19:00> Date of Encounter: 11/04/17 - Assessment and plan (1) Acute on chronic respiratory failure Current Visit: Yes Status: Acute Qualifiers: Respiratory failure complication: hypoxia Qualified Code(s): J96.21 - Acute and chronic respiratory failure with hypoxia (2) Diastolic CHF Current Visit: Yes Status: Acute Qualifiers: Heart failure chronicity: acute on chronic Qualified Code(s): I50.33 - Acute on chronic diastolic (congestive) heart failure (3) Diabetes mellitus, type 2 Current Visit: No Status: Chronic Qualifiers: Diabetes mellitus fpc insulin use: without fpc use Diabetes mellitus complication status: with unspecified complications Qualified Code(s) : E11.8 - Type 2 diabetes mellitus with unspecified complications (4) DVT prophylaxis Current Visit: Yes Status: Acute (5) Pneumonia Current Visit: Yes Status: Suspected Qualifiers: Pneumonia type: due to unspecified organism Laterality: bilateral Lung location: unspecified part of lung Qualified Code(s): J18.9 - Pneumonia, unspecified organism (6) Hypomagnesemia Current Visit: Yes Status: Acute (7) Elevated troponin Current Visit: Yes Status: Acute (8) PAF (paroxysmal atrial fibrillation) Current Visit: Yes Status: Chronic (9) DERREK (acute kidney injury) Current Visit: Yes Status: Resolved (10) IBS (irritable bowel syndrome) Current Visit: No Status: Chronic Qualifiers: Irritable bowel syndrome type: with diarrhea Qualified Code(s): K58.0 - Irritable bowel syndrome with diarrhea (11) NSTEMI (non-ST elevated myocardial infarction) Current Visit: Yes Status: Suspected - Time Spent With Patient Total time spent is greater than 50% in coordination of care (as documented) at patient's floor/unit and/or counseling patient: - Constitutional Vitals: Temp Pulse Resp BP Pulse Ox 97.6 F 66 14 107/60 97 11/04/17 07:00 11/04/17 15:00 11/04/17 15:40 11/04/17 15:00 11/04/17 15:40 Internal Medicine: Result - Labs CBC & Chem 7: 11/04/17 14:29 11/03/17 04:20 Labs: Short CBC 11/04/17 Range/Units 14:29 WBC 13.3 H (4.3-11.1) K/mcL Hgb 10.7 L (11.5-15.4) g/dL Hct 35.3 (35.3-44.9) % Plt Count 357 (140-400) K/mcL - ABG Interpretation ABG results: PT/INR, D-dimer PT 15.1 Seconds (9.4-12.1) H 11/03/17 04:20 Consult Discharge Plan - Plan Referrals: Sloane Murphy, [Primary Care Provider] - - Attending Attestation I examined this patient and my medical decision-making was reviewed with the Resident Physician on 11/04/17. I agree with the documented findings, disposition and treatment plan as described except to the extent set forth below. Ms Hebert is currently admitted for acute resp failure. She remains moderate to high risk due to potential for worsening clinical and respiratory status. Ms Hebert feels somewhat better today. She thinks she is breathing better. No fever. Appetite OK. Tolerating CPAP. Exam alert. Comfortable on CPAP Mucus membrane dry Heart distant Lungs clearer today Abd soft I/P 1. Resp failure 2. CHF Further diagnoses and plan as above. <Shant Hendrix - Last Filed: 11/04/17 19:22> Date of Encounter: 11/04/17 Time of Encounter: 13:30 - Assessment and plan (1) Pneumonia Current Visit: Yes Status: Suspected Assessment and plan: Leukocytosis 13.2 (on admission) --> 7.4 --> 16.6 --> 12.6 --> 13.3 Negative respiratory infection panel. BAL cultures show no growth. Continue IV doxycycline (Day 5) for atypical coverage as recommended by pulmonology. Qualifiers: Pneumonia type: due to unspecified organism Laterality: bilateral Lung location: unspecified part of lung Qualified Code(s): J18.9 - Pneumonia, unspecified organism (2) Elevated troponin Current Visit: Yes Status: Acute Assessment and plan: Per cardiology: -Elevated troponins--flat and adynamic--0.14, 0.18, 0.14 in setting of diastolic CHF and PNA. -Last [facility] 05/2016: Coronary arteries angiographically normal. -TTE EF preserved, normal wall motion. Moderate LVDD. -Pt denies chest pain. -Do not suspect NSTEMI, suspect demand ischemia. NO cadiac rehab consult warranted (3) Diabetes mellitus, type 2 Current Visit: No Status: Chronic Assessment and plan: Continue ADA diet, sliding scale insulin and glucose monitoring. Qualifiers: Diabetes mellitus manager terminal insulin use: without manager terminal use Diabetes mellitus complication status: with unspecified complications Qualified Code(s) : E11.8 - Type 2 diabetes mellitus with unspecified complications (4) Hypomagnesemia Current Visit: Yes Status: Acute Assessment and plan: Continue to monitor (5) DVT prophylaxis Current Visit: Yes Status: Acute Assessment and plan: Not on anticoagulation due history of alveolar hemorrhage. EPCD as mechanical DVT prophylaxis. (6) Acute on chronic respiratory failure Current Visit: Yes Status: Acute Qualifiers: Respiratory failure complication: hypoxia Qualified Code(s): J96.21 - Acute and chronic respiratory failure with hypoxia (7) Elevated troponin Current Visit: Yes Status: Acute (8) PAF (paroxysmal atrial fibrillation) Current Visit: Yes Status: Chronic (9) (HFpEF) heart failure with preserved ejection fraction Current Visit: Yes Status: Acute (10) DERREK (acute kidney injury) Current Visit: Yes Status: Resolved (11) IBS (irritable bowel syndrome) Current Visit: No Status: Chronic Qualifiers: Irritable bowel syndrome type: with diarrhea Qualified Code(s): K58.0 - Irritable bowel syndrome with diarrhea - Time Spent With Patient Total time spent is greater than 50% in coordination of care (as documented) at patient's floor/unit and/or counseling patient: - Subjective Interval history: 67YOF PMHx PAF, DM II, hypomagnesemia, and alveolar hemorrhage. She is doing much better today, sitting up in bed and tolerating CPAP well. She states that she continues to have mild chest pressure with cough, and last night she had a small amount of bloody sputum with cough. She states that she had a large solid bowel movement this morning. She denies headache, nausea, vomiting, chills, numbness and tingling of her extremities, abdominal pain, and burning on urination. - Constitutional Vitals: Temp Pulse Resp BP Pulse Ox 97.6 F 58 14 122/70 97 11/04/17 07:00 11/04/17 11:53 11/04/17 11:53 11/04/17 11:53 11/04/17 11:53 General appearance: Present: cooperative, mild distress (wearing BiPap), A&O X 3 , answers questions appropriately - Head Head exam: Present: atraumatic, normocephalic - Eye Eye exam: Present: PERRL, conjuntiva pink, sclera anicteric Pupils: Present: PERRL - Neck Neck exam general surgery: Present: supple, trachea midline. Absent: lymphadenopathy - Respiratory Respiratory exam: Present: CTAB. Absent: accessory muscle use, rales, rhonchi, wheezes - Cardiovascular Cardiovascular exam: Present: RRR, +S1, +S2. Absent: diastolic murmur, gallop, rubs, systolic murmur - GI/Abdominal GI/Abdominal exam: Present: normal bowel sounds, soft, no peritoneal signs. Absent: distended, tenderness - Extremities Exam Extremities exam: Present: warm, radial pulses palpable and symmetrical. Absent : calf tenderness, cyanotic, pedal edema - Neurological Exam Neurological exam: Present: CN II-XII intact, oriented X3, no focal deficits. Absent: pronater drift, facial droop, speech deficit - Skin Skin exam: Present: dry, intact Internal Medicine: Result - Labs CBC & Chem 7: 11/04/17 14:29 11/03/17 04:20 Labs: Short CBC 11/04/17 Range/Units 14:29 WBC 13.3 H (4.3-11.1) K/mcL Hgb 10.7 L (11.5-15.4) g/dL Hct 35.3 (35.3-44.9) % Plt Count 357 (140-400) K/mcL - ABG Interpretation ABG results: PT/INR, D-dimer PT 15.1 Seconds (9.4-12.1) H 11/03/17 04:20 - VTE Documentation of Mechanical Device: Intermittent pneumatic compression device
[2017-11-04] MEDS: Benzonatate 100 MG CAPSULE PO PRN (20:40)
[2017-11-05] MEDS: Ipratropium/Albuterol Neb 3 ML IH SCH ×6 (03:26→23:32)
[2017-11-05 04:53] LABS: Basophils % 0.1 %; Hematocrit 33.1 % (35.3-44.9); Hemoglobin 10.3 g/dL (11.5-15.4); Immature Granulocytes % 0.6 % (0-4); Lymphocytes # 0.5 K/mcL (0.6-4.6); Lymphocytes % 2.8 %; Mean Corpuscular HGB Conc 31.1 g/dL (31.6-35.5); Mean Corpuscular Hemoglobin 29.6 pg (28.0-33.3); Mean Corpuscular Volume 95.1 fL (83.0-100.0); Mean Platelet Volume 10.6 fL (9.4-12.4); Monocytes # 0.4 K/mcL (0.0-1.3); Monocytes % 1.9 %; Neutrophils # 18.5 K/mcL (1.6-8.9); Platelet Count 337 K/mcL (140-400); Red Blood Count 3.48 M/mcL (3.82-4.97); Red Cell Distribution Width 14.9 % (11.5-14.5); Segmented Neutrophils % 94.6 %
[2017-11-05 05:21] LABS: BUN/Creatinine Ratio 34 (6-26); Blood Urea Nitrogen 33 mg/dL (8-23); Calcium 9.3 mg/dL (8.6-10.3); Carbon Dioxide 42 mEq/L (23-29); Chloride 93 mEq/L (98-107); Glucose 237 mg/dL (70-105); Magnesium 1.6 mg/dL (1.6-2.6); Osmolality,Calculated 309 (280-300); Potassium 4.6 mEq/L (3.5-5.1); Sodium 142 mEq/L (136-145); eGFR For African Americans > 60 (> 60); eGFR For Non-African Americans 57 (> 60)
[2017-11-05] MEDS: Doxycycline 100 MG in 0.9 % Sodium Chloride Mini Bag 100 ML IVPB SCH (06:34)
[2017-11-05] MEDS: Beclomethasone 80mcg MDI IH SCH ×2 (07:45→19:38)
[2017-11-05] MEDS: Insulin LISPRO 300 UNITS/3 ML VIAL SQ SCH ×4 (08:29→22:41)
[2017-11-05] MEDS: Cyanocobalamin (B-12) 1,000 MCG TABLET PO SCH (08:30)
[2017-11-05] MEDS: Diltiazem CD (24hr) 120 MG CAPSULE PO SCH (08:30)
[2017-11-05] MEDS: Magnesium Oxide 400 MG TABLET PO SCH ×3 (08:30→22:42)
[2017-11-05] MEDS: Multivit/Ca/Min/Fe/FA 1 TAB TABLET PO SCH (08:30)
[2017-11-05] MEDS: BuPROPion XL (24 HR) 150 MG TABLET PO SCH (08:30)
[2017-11-05] MEDS: Colestipol Hcl [Colestid] 1 GM PO SCH ×2 (08:31→22:43)
[2017-11-05] MEDS: MethylPREDNISolone 40 MG/ML VIAL IVP SCH ×2 (08:31→17:34)
[2017-11-05] MEDS: Aspirin 81 MG TAB.CHEW PO SCH (08:31)
[2017-11-05] MEDS: Furosemide 20 MG/2 ML VIAL IVP SCH ×2 (08:31→17:30)
[2017-11-05] MEDS: Cholecalciferol (D-3) 1,000 UNIT TABLET PO SCH (08:33)
--- NOTE | 2017-11-05 10:11 | Internal Med Progress Note ---
<Shant Hendrix - Last Filed: 11/05/17 17:49> Date of Encounter: 11/05/17 Time of Encounter: 10:00 - Assessment and plan (1) Pneumonia Current Visit: Yes Status: Suspected Assessment and plan: Patient continues to have worsening leukocytosis --> 7.4 --> 16.6 --> 12.6 --> 13.3 --> 19.5 Negative respiratory infection panel. VSS Leukocytosis likely secondary to steroids. Patient reports improvement of symptoms. BAL cultures show no growth. Continue IV doxycycline (Day 6) for atypical coverage as recommended by pulmonology. Continue to monitor with a.m. labs Qualifiers: Pneumonia type: due to unspecified organism Laterality: bilateral Lung location: unspecified part of lung Qualified Code(s): J18.9 - Pneumonia, unspecified organism (2) Elevated troponin Current Visit: Yes Status: Acute Assessment and plan: Per cardiology: -Elevated troponins--flat and adynamic--0.14, 0.18, 0.14 in setting of diastolic CHF and PNA. -Last [facility] 05/2016: Coronary arteries angiographically normal. -TTE EF preserved, normal wall motion. Moderate LVDD. -Pt denies chest pain. -Do not suspect NSTEMI, suspect demand ischemia. NO cadiac rehab consult warranted (3) Diabetes mellitus, type 2 Current Visit: No Status: Chronic Assessment and plan: Continue ADA diet, sliding scale insulin and glucose monitoring. Qualifiers: Diabetes mellitus efficiency manager insulin use: without assisted use Diabetes mellitus complication status: with unspecified complications Qualified Code(s) : E11.8 - Type 2 diabetes mellitus with unspecified complications (4) Hypomagnesemia Current Visit: Yes Status: Acute Assessment and plan: Resolved (5) Acute on chronic respiratory failure Current Visit: Yes Status: Acute Assessment and plan: Acute respiratory failure with hypoxia Elevated ADE titer 1:320, ESR 71, CRP 54, normal myeloperoxidase Ab 1, Serine protease 3 Ab 2. Differentials include vasculitis vs CHF/pulmonary edema vs inflammatory lung disease vs pulmonary alveolar proteinosis vs PCP pneumonia or sarcoidosis. CT chest on 10/30/17 showed patchy ground-glass opacities with crazy paving pattern throughout both lungs. This is likely contribute to patient's current respiratory failure. CXR completed 11/02/17 revealed diffuse bilateral airspace disease similar to the prior study, no large pleural effusion. Patient is requiring high FiO2 and had desaturation down to SpO2 50% while wearing CPAP. Noninvasive ventilation is recommended that this time, switched to BiPap. Per pulmonology, bronchoscopy 10/31/17 did not suggest alveolar hemorrhage. Hydrostatic pulmonary edema is most likely the cause of patient's respiratory failure. Patient received 2 days of Levaquin Switched to IV Doxycycline (Day 4) for atypical coverage. Continue BiPAP prn given hypoxia and history of sleep apnea. Contiue diuresis, scheduled Duoneb and supplemental oxygen. Continue wean off oxygen to keep SPO2 around 90%. Continue to monitor closely. If her hemoptysis worsens, will plan to arrange repeat bronchoscopy per pulmonology. Given possible elevated ADE and possible vasculitis, will resume empiric systemic steroids. She remains moderate to high risk due to potential for worsening clinical status. Qualifiers: Respiratory failure complication: hypoxia Qualified Code(s): J96.21 - Acute and chronic respiratory failure with hypoxia (6) PAF (paroxysmal atrial fibrillation) Current Visit: Yes Status: Chronic Assessment and plan: Currently rate control with metoprolol in sinus rhythm. 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 (7) (HFpEF) heart failure with preserved ejection fraction Current Visit: Yes Status: Acute Assessment and plan: Echo on 10/30/17 showed LVEF 60% with moderate LV diastolic dysfunction. Net -3737 mL since admission BNP 741 --> 703. Patient appears hypervolemic, will continue diuresis with Lasix IV but consider discontinuation if renal function worsens. Decreased dose of BB due to bradycardia Strict I/O and daily weight. Peck inserted 11/03/17 Cardiology following (8) DERREK (acute kidney injury) Current Visit: Yes Status: Resolved Assessment and plan: SCr improving, SCr < 1.0 at baseline. Likely related to diuretic use. Patient appears hypervolemic, will continue Lasix 20mg BID IV but consider discontinuation if renal function gets worse. Avoid nephrotoxins Continue to monitor renal function and electrolytes. (9) IBS (irritable bowel syndrome) Current Visit: No Status: Chronic Assessment and plan: Continue home Levsin Qualifiers: Irritable bowel syndrome type: with diarrhea Qualified Code(s): K58.0 - Irritable bowel syndrome with diarrhea (10) DVT prophylaxis Current Visit: Yes Status: Acute Assessment and plan: Not on anticoagulation due history of alveolar hemorrhage. EPCD as mechanical DVT prophylaxis. (11) Atrial fibrillation Current Visit: Yes Status: Acute Assessment and plan: Patient is unable to tolerate anticoagulation due to previous alveolar hemorrhage. Per EP consult, continue aspirin. Discontinue amiodarone due to worsening respiratory status, continue calcium channel melva. Plan to repeat outpatient PFT and follow-up with cardiology outpatient. Patient understands the risks of embolic event while not on full length ventilation. Plan for discharge tomorrow/ pending placement Qualifiers: Qualified Code(s): I48.91 - Unspecified atrial fibrillation - Time Spent With Patient Total time spent is greater than 50% in coordination of care (as documented) at patient's floor/unit and/or counseling patient: Greater than 35 minutes - Subjective Interval history: 67YOF PMHx PAF, DM II, hypomagnesemia, and alveolar hemorrhage. She continues to improve today, sitting up in bed. Has been tolerating ambulation, but requires continuous oxygen. She denies f/c/n/v/d/constipation. She has no acute complaints. She also continues to have cough with sputum but no blood. +BM. Voiding without difficulty. Will require oxygen upon discharge. - Constitutional Vitals: Temp Pulse Resp BP Pulse Ox 97.3 F L 64 25 126/76 98 11/05/17 05:40 11/05/17 05:40 11/05/17 07:46 11/05/17 05:40 11/05/17 07:46 General appearance: Present: cooperative, mild distress (wearing BiPap), A&O X 3 , answers questions appropriately - Head Head exam: Present: atraumatic, normocephalic - Eye Eye exam: Present: PERRL, conjuntiva pink, sclera anicteric Pupils: Present: PERRL - Neck Neck exam general surgery: Present: supple, trachea midline. Absent: lymphadenopathy - Respiratory Respiratory exam: Present: rales (all lung urias ). Absent: accessory muscle use, rhonchi, wheezes - Cardiovascular Cardiovascular exam: Present: irregular rhythm. Absent: diastolic murmur, gallop, rubs, systolic murmur - GI/Abdominal GI/Abdominal exam: Present: normal bowel sounds, soft, no peritoneal signs. Absent: distended, tenderness - Extremities Exam Extremities exam: Present: warm, radial pulses palpable and symmetrical. Absent : calf tenderness, cyanotic, pedal edema - Neurological Exam Neurological exam: Present: alert, oriented X3, no focal deficits. Absent: pronater drift, facial droop, speech deficit - Skin Skin exam: Present: dry, intact Internal Medicine: Result - Labs CBC & Chem 7: 11/05/17 04:26 11/05/17 04:26 Labs: Short CBC 11/04/17 11/05/17 Range/Units 14:29 04:26 WBC 13.3 H 19.5 H (4.3-11.1) K/mcL Hgb 10.7 L 10.3 L (11.5-15.4) g/dL Hct 35.3 33.1 L (35.3-44.9) % Plt Count 357 337 (140-400) K/mcL Neutrophils # 18.5 H (1.6-8.9) K/mcL BMP 11/05/17 04:26 Sodium 142 Potassium 4.6 Chloride 93 L Carbon Dioxide 42 H* BUN 33 H Creatinine 0.98 Glucose 237 H Calcium 9.3 - ABG Interpretation ABG results: PT/INR, D-dimer PT 15.1 Seconds (9.4-12.1) H 11/03/17 04:20 - VTE Documentation of Mechanical Device: Intermittent pneumatic compression device Consult Discharge Plan - Plan Referrals: Sloane Murphy, [Primary Care Provider] - <Lloyd [place] - Last Filed: 11/05/17 19:44> Date of Encounter: 11/05/17 - Assessment and plan (1) Acute on chronic respiratory failure Current Visit: Yes Status: Acute Qualifiers: Respiratory failure complication: hypoxia Qualified Code(s): J96.21 - Acute and chronic respiratory failure with hypoxia (2) Diastolic CHF Current Visit: Yes Status: Acute Qualifiers: Heart failure chronicity: acute on chronic Qualified Code(s): I50.33 - Acute on chronic diastolic (congestive) heart failure (3) Diabetes mellitus, type 2 Current Visit: No Status: Chronic Qualifiers: Diabetes mellitus assisted insulin use: without assisted use Diabetes mellitus complication status: with unspecified complications Qualified Code(s) : E11.8 - Type 2 diabetes mellitus with unspecified complications (4) Pneumonia Current Visit: Yes Status: Suspected Qualifiers: Pneumonia type: due to other aerobic Gram-negative bacteria Laterality: bilateral Lung location: lower lobe of lung Qualified Code(s): J15.6 - Pneumonia due to other Gram-negative bacteria (5) Hypomagnesemia Current Visit: Yes Status: Acute (6) PAF (paroxysmal atrial fibrillation) Current Visit: Yes Status: Chronic (7) DERREK (acute kidney injury) Current Visit: Yes Status: Resolved (8) IBS (irritable bowel syndrome) Current Visit: No Status: Chronic Qualifiers: Irritable bowel syndrome type: with diarrhea Qualified Code(s): K58.0 - Irritable bowel syndrome with diarrhea (9) Elevated troponin Current Visit: Yes Status: Acute (10) DVT prophylaxis Current Visit: Yes Status: Acute - Time Spent With Patient Total time spent is greater than 50% in coordination of care (as documented) at patient's floor/unit and/or counseling patient: - Constitutional Vitals: Temp Pulse Resp BP Pulse Ox 98.1 F 74 18 117/65 88 11/05/17 15:57 11/05/17 15:57 11/05/17 15:57 11/05/17 15:57 11/05/17 15:57 Internal Medicine: Result - Labs CBC & Chem 7: 11/05/17 04:26 11/05/17 04:26 Labs: Short CBC 11/05/17 Range/Units 04:26 WBC 19.5 H (4.3-11.1) K/mcL Hgb 10.3 L (11.5-15.4) g/dL Hct 33.1 L (35.3-44.9) % Plt Count 337 (140-400) K/mcL Neutrophils # 18.5 H (1.6-8.9) K/mcL BMP 11/05/17 04:26 Sodium 142 Potassium 4.6 Chloride 93 L Carbon Dioxide 42 H* BUN 33 H Creatinine 0.98 Glucose 237 H Calcium 9.3 - ABG Interpretation ABG results: PT/INR, D-dimer PT 15.1 Seconds (9.4-12.1) H 11/03/17 04:20 - Attending Attestation I examined this patient and my medical decision-making was reviewed with the Resident Physician on 11/05/17. I agree with the documented findings, disposition and treatment plan as described except to the extent set forth below. Ms Hebert is currently admitted for respiratory failure and CHF. She remains moderate to high risk due to potential for worsening clinical status. Ms Hebert is feeling tired. No fever. Breathing about the same. Some cough. No GI issues. Exam alert Comfortable Mucus membranes dry Heart not tachy Lungs with few rhonchi Abd soft I/P 1. Resp failure 2. CHF Further diagnoses and plan as above.
--- NOTE | 2017-11-05 12:20 | Electrophysiology Consult Note ---
<Vidhi Melendez - Last Filed: 11/05/17 12:20> Date of Encounter: 11/05/17 Time of Encounter: 09:30 Assessment and Plan (1) Atrial fibrillation Status: Chronic Per EP: -Hx of atrial flutter ablation currently in normal sinus rhythm. 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 -She continues to be on aspirin for stroke risk reduction. Patient is aware of increased risk of CVA/emolic event while not on full anticoagulation. -TTE EF 60%, moderate diastolic dysfunction. -Per , amiodarone was stopped due ot worsening respiratory status. Now on CCB. -Discussed and reviewed with Dr.John Kearns, ok to continue to cardizem. Will repeat outpatient PFT and will set up follow up with Dr.John Kearns. Qualifiers: Atrial fibrillation type: paroxysmal Qualified Code(s): I48.0 - Paroxysmal atrial fibrillation (2) History of ventricular tachycardia Status: Chronic Per cardiology: -History of VT/VF, has ICD. -was on amiodarone in outpatient setting, however now stopped due to respiratory status. -Now on CCB. -Per discussion with Dr.John Kearns, will continue to monitor in outpateint setting, FOllow up set. . Discussion w patient/family: The assessment and plan as outlined above was discussed with the patient who expressed understanding and agreement. All questions were answered. Thank you for involving us in the care of your patient. Please call with any questions. Discussed and reviewed with Dr.John Kearns. History of Present Illness Consult date: 11/05/17 Requesting physician: La Knowles Consult reason: history VT, a.fib Chief complaint: shortness of breath History of present illness: Ms. Hebert is a 67 year old female with a relevant past medical history of V.fib s/p ICD, PAF not on anticoagulation due to alveolar hemmhorage, hyperlipidemia, HTN, CHF. Patient presented to [facility] with complaints of worsening shortness of breath. EP has been consulted due to history of ventricular fibrillation and a.fib, Now off amiodarone. Patient reports today she is feeling much better. Past Med Surg Social Fam HX - Past Medical History Attestation: Yes The following information was validated with the patient. Source: patient, old records reviewed Medical history: atrial fibrillation, COPD, coronary artery disease, diabetes, hyperlipidemia, hypertension, myocardial infarction, other Psychiatric history: no psych history - Past Surgical History Surgical History: hysterectomy, pacemaker/AICD, other - Social History Smoking Status: Never smoker Smokeless Tobacco Status: No Alcohol use: none Drug use: none - Family History Mother Living Status: Hx Family Cardiac Disorders: Yes Hx Family Endocrine Disorder: Yes Medications and Allergies Aspirin 81 mg PO DAILY 06/05/16 [History] Multivitamin [Multivitamins] 1 cap PO DAILY 06/05/16 [History] Potassium Chloride 20 meq PO DAILY tab.er.prt 07/06/16 [Rx] Calcium Carbonate [Calcium] 1,000 mg PO BID 04/28/17 [History] Ferrous Sulfate 325 mg PO DAILY 04/28/17 [History] Alosetron HCl 0.5 mg PO BID 08/19/17 [History] Baclofen [Lioresal] 10 mg PO TID PRN 08/19/17 [History] Cholecalciferol (D-3) [Vitamin D] 2,000 unit PO DAILY #30 tablet 08/25/17 [Rx] Albuterol Sulfate [Ventolin Hfa] 2 puff IH Q6H PRN 09/11/17 [History] Beclomethasone Diprop 80mcg [QVAR 80 mcg] 1 puff IH BID 09/11/17 [History] BuPROPion XL (24 HR) [Wellbutrin Xl] 150 mg PO DAILY 09/11/17 [History] Citalopram [CeleXA] 20 mg PO DAILY 10/29/17 [History] Colestipol HCl [Colestid] 1 gm PO BID 10/29/17 [History] Cyanocobalamin (Vitamin B-12) [Vitamin B12] 1,000 mcg PO DAILY 10/29/17 [History ] Hyoscyamine SL [Levsin Sl] 0.125 mg SL Q4H PRN 10/29/17 [History] Magnesium Oxide [Mag-Ox] 400 mg PO TID 10/29/17 [History] Meclizine [Antivert] 25 mg PO DAILY PRN 10/29/17 [History] Oxygen 1 each .ROUTE AD 10/29/17 [History] Albuterol Neb [Proventil Neb] 2.5 mg IH Q2H PRN inhsol 11/07/17 [Rx] Benzonatate [Tessalon] 100 mg PO TID PRN capsule 11/07/17 [Rx] Diltiazem CD (24hr) [Cardizem CD] 120 mg PO DAILY cap.er.24h 11/07/17 [Rx] Doxycycline 100 mg PO Q12HR capsule 11/07/17 [Rx] Furosemide [Lasix] 40 mg PO BID #2 tablet 11/07/17 [Rx] Ipratropium/Albuterol Neb [Duoneb] 3 ml IH [id number] inhsol 11/07/17 [Rx] Menthol [Cough Drops] 9.1 mg PO Q2H PRN lozenge 11/07/17 [Rx] Nitroglycerin 0.4 mg SL Q5MIN PRN tab.subl 11/07/17 [Rx] predniSONE [PredniSONE] 40 mg PO DAILY #4 tablet 11/07/17 [Rx] 3 Allergy/AdvReac Type Severity Reaction Status Date / Time peanut Allergy Hives Verified 05/16/17 13:35 zinc Allergy Hives Verified 05/16/17 13:35 Sulfa (Sulfonamide AdvReac Mild constipatio Verified 05/16/17 13:35 Antibiotics) n All Systems Review: The remainder of the systems were reviewed and are negative - Cardiovascular Cardiovascular: as per HPI, dyspnea at rest, dyspnea on exertion Physical Examination Vital Signs, Last 4 Hours Temp Pulse Resp BP Pulse Ox 11/05/17 11:15 98.4 F 80 16 111/68 93 General: Conversant, No Apparent Distress HEENT: Atraumatic, Normocephaly, Mucus Membranes Moist Neck: No JVD, Normal carotid pulses Cardiac: Reg Rate and Rhythm, Normal S1 and S2, No Murmur Lungs: Other (Lung sounds diminished throughout. ) Neuro: Alert and responsive, No focal deficits noted Abdomen: Soft, Non-Tender Skin: No rashes noted on visualized skin Musculoskeletal: No Chest Wall Tenderness Extremities: No Clubbing, No Cyanosis, No Edema, Normal Pulses Results 11/05/17 04:26 11/05/17 04:26 Lab Results Active Medications Albuterol Sulfate (Proventil Neb) 2.5 mg IH Q2H PRN; Protocol PRN Reason: Shortness Of Breath/Wheezing Stop: 05/01/18 17:10 Albuterol/Ipratropium (Duoneb) 3 ml IH [id number] TALA Stop: 05/01/18 20:01 Last Admin: 11/05/17 11:14 Dose: 3 ml Aspirin (Aspirin) 81 mg PO DAILY TALA Stop: 05/01/18 09:01 Last Admin: 11/05/17 08:31 Dose: 81 mg Baclofen (Lioresal) 10 mg PO TID PRN PRN Reason: Muscle Spasm Stop: 04/30/18 18:31 Last Admin: 11/02/17 06:36 Dose: 10 mg Beclomethasone Dipropionate (Qvar 80 Mcg) 1 puff IH BIDR TALA PRN Reason: Protocol Stop: 04/30/18 22:01 Last Admin: 11/05/17 07:45 Dose: Not Given Benzonatate (Tessalon) 100 mg PO TID PRN PRN Reason: Cough Stop: 05/01/18 21:46 Last Admin: 11/04/17 20:40 Dose: 100 mg Bupropion HCl (Wellbutrin Xl) 150 mg PO DAILY TALA Stop: 05/01/18 09:01 Last Admin: 11/05/17 08:30 Dose: 150 mg Calcium Carbonate (Tums) 1,000 mg PO BID TALA Stop: 04/30/18 21:01 Last Admin: 11/05/17 08:30 Dose: 1,000 mg Citalopram Hydrobromide (Celexa) 20 mg PO DAILY TALA Stop: 05/01/18 09:01 Last Admin: 11/05/17 08:30 Dose: 20 mg Cyanocobalamin (Vitamin B12) 1,000 mcg PO DAILY TALA Stop: 05/01/18 09:01 Last Admin: 11/05/17 08:30 Dose: 1,000 mcg Dextrose/Water (Dextrose 50% (Syg)) 25 ml IVP AD PRN PRN Reason: Hypoglycemia Stop: 04/30/18 20:32 Diltiazem HCl (Cardizem Cd) 120 mg PO DAILY TALA Stop: 05/06/18 09:01 Last Admin: 11/05/17 08:30 Dose: 120 mg Doxycycline Hyclate (Doxycycline) 100 mg PO Q12HR TALA Stop: 05/07/18 18:01 Furosemide (Lasix) 20 mg IVP BIDDIURETIC TALA Stop: 04/30/18 21:01 Last Admin: 11/05/17 08:31 Dose: 20 mg Glucagon (Glucagen) 1 mg IM ONCE PRN PRN Reason: Hypoglycemia Stop: 04/30/18 20:32 Glucose (Gluctose) 15 gm PO ONCE PRN PRN Reason: Hypoglycemia Stop: 04/30/18 20:32 Glucose (Gluctose) 30 gm PO ONCE PRN PRN Reason: Hypoglycemia Stop: 04/30/18 20:32 Hyoscyamine (Levsin Sl) 0.125 mg SL Q4H PRN PRN Reason: Abdominal Cramps Stop: 04/30/18 18:31 Dextrose (Dextrose 5%) 1,000 mls @ 100 mls/hr IVC .Q10H PRN PRN Reason: HYPOGLYCEMIA Stop: 04/30/18 20:32 Insulin Human Lispro (Humalog) 0 units SQ HS TALA PRN Reason: Protocol Stop: 04/30/18 21:01 Last Admin: 11/04/17 20:40 Dose: 2 units Insulin Human Lispro (Humalog) 0 units SQ TIDAC TALA PRN Reason: Protocol Stop: 05/01/18 07:31 Last Admin: 11/05/17 12:03 Dose: 6 units Magnesium Oxide (Mag-Ox) 400 mg PO TID TALA PRN Reason: Protocol Stop: 04/30/18 21:01 Last Admin: 11/05/17 08:30 Dose: 400 mg Meclizine HCl (Antivert) 25 mg PO DAILY PRN PRN Reason: DIZZINESS Stop: 04/30/18 18:31 Last Admin: 11/02/17 06:36 Dose: 25 mg Methylprednisolone (Solu-Medrol) 40 mg IVP Q8HR [facility] Stop: 05/05/18 16:01 Last Admin: 11/05/17 08:31 Dose: 40 mg Multivitamins/Calcium (Thera M Plus) 1 tab PO DAILY [facility] Stop: 05/01/18 09:01 Last Admin: 11/05/17 08:30 Dose: 1 tab Naloxone HCl (Narcan) 0.4 mg IVP Q2MIN PRN PRN Reason: SEE COMMENTS Stop: 04/30/18 20:27 Nitroglycerin (Nitroglycerin) 0.4 mg SL Q5MIN PRN PRN Reason: Chest Pain Stop: 04/30/18 15:06 Pharmacy Profile Note (Patient Taking Own Medication) 1 each PO BID [facility] Stop: 04/30/18 21:01 Last Admin: 11/05/17 08:31 Dose: Not Given Potassium Chloride (Potassium Chloride) 20 meq PO DAILY [facility] Stop: 05/01/18 09:01 Last Admin: 11/05/17 08:30 Dose: 20 meq Vitamin D (Vitamin D) 2,000 unit PO DAILY [facility] Stop: 05/01/18 09:01 Last Admin: 11/05/17 08:33 Dose: 2,000 unit Laboratory Tests 11/05/17 11/05/17 04:26 04:26 WBC 19.5 H Hgb 10.3 L Creatinine 0.98 - Imaging and Cardiology Chest Xray: report reviewed Echo: report reviewed - EKG Interpretation EKG results cardiology: personally reviewed (ECG with SR.), other (Telemetry reviewed with average HR previous 12 hours noted to be 65, SR. PVCs and PACs noted. One 4 beat run of non-sustained VT.) Consult Discharge Plan - Plan Instructions: Furosemide (By mouth), Prednisone (By mouth), Heart Failure (DC) , Acute Respiratory Distress Syndrome (DC), Pneumonia (DC) Referrals: Sloane Murphy DO [Primary Care Provider] - Prescriptions: Furosemide [Lasix] 40 mg PO BID #2 tablet predniSONE [PredniSONE] 40 mg PO DAILY #4 tablet <Allan Kearns - Last Filed: 11/09/17 15:14> Date of Encounter: 11/09/17 - Attending Attestation I have personally performed a face to face evaluation on this patient. I have reviewed and agree with the care plan. History and Exam by me shows: Known history of AFl/ AT. Known lung disease. Has been on amio due to her inablity to be anticaogulated. Can hold for now but would like to repeat PFTs to assess if any worsening abnormalities. Assessment and Plan Discussion w patient/family: The assessment and plan as outlined above was discussed with the patient and/or family members who expressed understanding and agreement. All questions were answered. Thank you for involving us in the care of your patient. Please call with any questions. History of Present Illness History of present illness: Ms. Hebert is a 67 year old female All Systems Review: The remainder of the systems were reviewed and are negative Results 11/07/17 05:31 11/07/17 05:31
[2017-11-05] MEDS: Doxycycline 100 MG CAPSULE PO SCH (17:30)
[2017-11-06] MEDS: MethylPREDNISolone 40 MG/ML VIAL IVP SCH ×4 (01:20→20:21)
[2017-11-06] MEDS: Ipratropium/Albuterol Neb 3 ML IH SCH ×6 (04:00→23:44)
[2017-11-06] MEDS: Doxycycline 100 MG CAPSULE PO SCH ×2 (05:49→17:05)
[2017-11-06] MEDS: Beclomethasone 80mcg MDI IH SCH ×2 (07:25→19:59)
[2017-11-06 07:32] LABS: Hematocrit 31.7 % (35.3-44.9); Hemoglobin 9.6 g/dL (11.5-15.4); Lymphocytes # 0.5 K/mcL (0.6-4.6); Mean Corpuscular HGB Conc 30.3 g/dL (31.6-35.5); Mean Corpuscular Volume 95.8 fL (83.0-100.0); Mean Platelet Volume 10.3 fL (9.4-12.4); Platelet Count 333 K/mcL (140-400); Red Blood Count 3.31 M/mcL (3.82-4.97); Red Cell Distribution Width 14.7 % (11.5-14.5)
[2017-11-06 07:40] LABS: BUN/Creatinine Ratio 45 (6-26); Blood Urea Nitrogen 37 mg/dL (8-23); Calcium 8.7 mg/dL (8.6-10.3); Carbon Dioxide 39 mEq/L (23-29); Chloride 93 mEq/L (98-107); Glucose 241 mg/dL (70-105); Osmolality,Calculated 305 (280-300); Potassium 4.4 mEq/L (3.5-5.1); Sodium 139 mEq/L (136-145); eGFR For African Americans > 60 (> 60); eGFR For Non-African Americans > 60 (> 60)
[2017-11-06 08:27] LABS: Anisocytosis 1+ (Not Present); Eosinophils # 0.5 K/mcL (0.0-0.6); Neutrophils # 22.8 K/mcL (1.6-8.9)
[2017-11-06] MEDS: Cyanocobalamin (B-12) 1,000 MCG TABLET PO SCH (09:58)
[2017-11-06] MEDS: Diltiazem CD (24hr) 120 MG CAPSULE PO SCH (09:59)
[2017-11-06] MEDS: Magnesium Oxide 400 MG TABLET PO SCH ×3 (09:59→20:21)
[2017-11-06] MEDS: Cholecalciferol (D-3) 1,000 UNIT TABLET PO SCH (09:59)
[2017-11-06] MEDS: Aspirin 81 MG TAB.CHEW PO SCH (09:59)
[2017-11-06] MEDS: Furosemide 20 MG/2 ML VIAL IVP SCH ×2 (09:59→17:05)
[2017-11-06] MEDS: BuPROPion XL (24 HR) 150 MG TABLET PO SCH (09:59)
[2017-11-06] MEDS: Multivit/Ca/Min/Fe/FA 1 TAB TABLET PO SCH (09:59)
[2017-11-06] MEDS: Insulin LISPRO 300 UNITS/3 ML VIAL SQ SCH ×4 (09:59→20:24)
[2017-11-06] MEDS: Colestipol Hcl [Colestid] 1 GM PO SCH ×2 (10:00→20:43)
--- NOTE | 2017-11-06 11:54 | Internal Med Progress Note ---
Date of Encounter: 11/06/17 Time of Encounter: 11:30 - Assessment and plan (1) Acute on chronic respiratory failure Current Visit: Yes Status: Acute Assessment and plan: Acute respiratory failure with hypoxia Elevated ADE titer 1:320, ESR 71, CRP 54, normal myeloperoxidase Ab 1, Serine protease 3 Ab 2. Differentials include vasculitis vs CHF/pulmonary edema vs inflammatory lung disease vs pulmonary alveolar proteinosis vs PCP pneumonia or sarcoidosis. CT chest on 10/30/17 showed patchy ground-glass opacities with crazy paving pattern throughout both lungs. This is likely contribute to patient's current respiratory failure. CXR completed 11/02/17 revealed diffuse bilateral airspace disease similar to the prior study, no large pleural effusion. Patient is requiring high FiO2 and had desaturation down to SpO2 50% while wearing CPAP. Noninvasive ventilation is recommended that this time, switched to BiPap. Per pulmonology, bronchoscopy 10/31/17 did not suggest alveolar hemorrhage. Hydrostatic pulmonary edema is most likely the cause of patient's respiratory failure. Patient received 2 days of Levaquin Switched to IV Doxycycline (Day 4) for atypical coverage. Continue BiPAP prn given hypoxia and history of sleep apnea. Contiue diuresis, scheduled Duoneb and supplemental oxygen. Continue wean off oxygen to keep SPO2 around 90%. Continue to monitor closely. If her hemoptysis worsens, will plan to arrange repeat bronchoscopy per pulmonology. Given possible elevated ADE and possible vasculitis, will resume empiric systemic steroids. She remains moderate to high risk due to potential for worsening clinical status. 11/06- Today she is about the same. She is still on 5 liters high flow. Weaning as able. Anticipate d/c tomorrow. Qualifiers: Respiratory failure complication: hypoxia Qualified Code(s): J96.21 - Acute and chronic respiratory failure with hypoxia (2) Diastolic CHF Current Visit: Yes Status: Acute Assessment and plan: Continue diuresis. Overall has improved. Qualifiers: Heart failure chronicity: acute on chronic Qualified Code(s): I50.33 - Acute on chronic diastolic (congestive) heart failure (3) Diabetes mellitus, type 2 Current Visit: No Status: Chronic Assessment and plan: Continue ADA diet, sliding scale insulin and glucose monitoring. Qualifiers: Diabetes mellitus oil heaterman insulin use: without oil heaterman use Diabetes mellitus complication status: with hyperglycemia Qualified Code(s): E11.65 - Type 2 diabetes mellitus with hyperglycemia (4) Pneumonia Current Visit: Yes Status: Suspected Assessment and plan: Patient continues to have worsening leukocytosis --> 7.4 --> 16.6 --> 12.6 --> 13.3 --> 19.5 Negative respiratory infection panel. VSS Leukocytosis likely secondary to steroids. Patient reports improvement of symptoms. BAL cultures show no growth. Continue IV doxycycline (Day 7) for atypical coverage as recommended by pulmonology. Continue to monitor with a.m. labs Anticipate we will complete 10 days of abx. WBC higher today. If worse tomorrow will check CXR. Most likely related to steroids. Qualifiers: Pneumonia type: due to other aerobic Gram-negative bacteria Laterality: bilateral Lung location: lower lobe of lung Qualified Code(s): J15.6 - Pneumonia due to other Gram-negative bacteria (5) Hypomagnesemia Current Visit: Yes Status: Acute Assessment and plan: Resolved Recheck tomorrow (6) PAF (paroxysmal atrial fibrillation) Current Visit: Yes Status: Chronic Assessment and plan: Currently rate control with metoprolol in sinus rhythm. 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 (7) IBS (irritable bowel syndrome) Current Visit: No Status: Chronic Assessment and plan: Continue home Levsin Qualifiers: Irritable bowel syndrome type: with diarrhea Qualified Code(s): K58.0 - Irritable bowel syndrome with diarrhea (8) DVT prophylaxis Current Visit: Yes Status: Acute Assessment and plan: Not on anticoagulation due history of alveolar hemorrhage. EPCD as mechanical DVT prophylaxis. - Time Spent With Patient Total time spent is greater than 50% in coordination of care (as documented) at patient's floor/unit and/or counseling patient: - Subjective Interval history: Ms Hebert is currently admitted for acute resp failure. She remains moderate to high risk due to potential for worsening clinical and respiratory status. Ms Hebert is having a lot of coughing. She did not sleep well. No fever. No hemoptysis. Denies worsening breathing. - Constitutional Vitals: Temp Pulse Resp BP Pulse Ox 97.7 F 71 16 138/78 95 11/06/17 06:57 11/06/17 06:57 11/06/17 10:56 11/06/17 07:25 11/06/17 10:56 General appearance: Present: cooperative, A&O X 3, answers questions appropriately - Head Head exam: Present: normocephalic - Eye Eye exam: Present: conjuntiva pink - ENT ENT exam: Present: mucous membranes dry - Respiratory Respiratory exam: Present: rales, rhonchi - Cardiovascular Cardiovascular exam: Present: RRR, tachycardia - GI/Abdominal GI/Abdominal exam: Present: soft. Absent: tenderness - Extremities Exam Extremities exam: Present: warm. Absent: tenderness - Neurological Exam Neurological exam: Present: alert, oriented X3 - Skin Skin exam: Present: dry, warm Internal Medicine: Result - Labs CBC & Chem 7: 11/06/17 07:10 11/06/17 07:10 Labs: Short CBC 11/06/17 Range/Units 07:10 WBC 23.7 H (4.3-11.1) K/mcL Hgb 9.6 L (11.5-15.4) g/dL Hct 31.7 L (35.3-44.9) % Plt Count 333 (140-400) K/mcL Neutrophils # 22.8 H (1.6-8.9) K/mcL BMP 11/06/17 07:10 Sodium 139 Potassium 4.4 Chloride 93 L Carbon Dioxide 39 H BUN 37 H Creatinine 0.82 Glucose 241 H Calcium 8.7 - ABG Interpretation ABG results: PT/INR, D-dimer PT 15.1 Seconds (9.4-12.1) H 11/03/17 04:20 - VTE Documentation of Mechanical Device: Intermittent pneumatic compression device Consult Discharge Plan - Plan Referrals: Sloane Murphy DO [Primary Care Provider] -
[2017-11-06] MEDS: Benzonatate 100 MG CAPSULE PO PRN (17:05)
[2017-11-06] MEDS ORDERED: *HR* Promethazine 25 MG/ML VIAL IVP PRN (20:01)
[2017-11-06] MEDS ORDERED: *HR* Promethazine 25 MG/ML VIAL ONE (20:16)
[2017-11-06] MEDS ORDERED: Menthol 9.1 MG LOZENGE PO PRN (20:44)
[2017-11-07] MEDS: Ipratropium/Albuterol Neb 3 ML IH SCH ×4 (03:50→15:25)
[2017-11-07 05:41] LABS: Hematocrit 33.4 % (35.3-44.9); Hemoglobin 10.4 g/dL (11.5-15.4); Mean Corpuscular HGB Conc 31.1 g/dL (31.6-35.5); Mean Corpuscular Hemoglobin 29.5 pg (28.0-33.3); Mean Corpuscular Volume 94.9 fL (83.0-100.0); Mean Platelet Volume 10.1 fL (9.4-12.4); Platelet Count 330 K/mcL (140-400); Red Blood Count 3.52 M/mcL (3.82-4.97); Red Cell Distribution Width 14.7 % (11.5-14.5)
[2017-11-07 06:09] LABS: Alanine Aminotransferase 21 Units/L (7-52); Albumin/Globulin Ratio 1.3 (1.1-2.2); Alkaline Phosphatase 92 Units/L (34-104); Aspartate Amino Transferase 17 Units/L (13-39); BUN/Creatinine Ratio 51 (6-26); Bilirubin,Total 0.6 mg/dL (0.3-1.0); Blood Urea Nitrogen 38 mg/dL (8-23); Calcium 8.8 mg/dL (8.6-10.3); Carbon Dioxide 41 mEq/L (23-29); Chloride 90 mEq/L (98-107); Globulin 2.4 g/dL (2.4-3.5); Glucose 219 mg/dL (70-105); Magnesium 1.5 mg/dL (1.6-2.6); Osmolality,Calculated 304 (280-300); Sodium 139 mEq/L (136-145); Total Protein 5.4 g/dL (6.4-8.9); eGFR For African Americans > 60 (> 60); eGFR For Non-African Americans > 60 (> 60)
[2017-11-07] MEDS: Doxycycline 100 MG CAPSULE PO SCH (06:52)
[2017-11-07] MEDS: MethylPREDNISolone 40 MG/ML VIAL IVP SCH (06:52)
[2017-11-07 07:36] VITALS: BP 113/80
[2017-11-07] MEDS: Beclomethasone 80mcg MDI IH SCH (07:40)
[2017-11-07] MEDS: Multivit/Ca/Min/Fe/FA 1 TAB TABLET PO SCH (08:46)
[2017-11-07] MEDS: Cholecalciferol (D-3) 1,000 UNIT TABLET PO SCH (08:46)
[2017-11-07] MEDS: Magnesium Oxide 400 MG TABLET PO SCH (08:46)
[2017-11-07] MEDS: BuPROPion XL (24 HR) 150 MG TABLET PO SCH (08:46)
[2017-11-07] MEDS: Colestipol Hcl [Colestid] 1 GM PO SCH (08:47)
[2017-11-07] MEDS: Furosemide 20 MG/2 ML VIAL IVP SCH (08:47)
[2017-11-07] MEDS: Insulin LISPRO 300 UNITS/3 ML VIAL SQ SCH ×2 (08:47→12:29)
[2017-11-07] MEDS: Cyanocobalamin (B-12) 1,000 MCG TABLET PO SCH (08:47)
[2017-11-07] MEDS: Aspirin 81 MG TAB.CHEW PO SCH (08:47)
[2017-11-07] MEDS: Diltiazem CD (24hr) 120 MG CAPSULE PO SCH (08:47)
--- NOTE | 2017-11-07 11:06 | Discharge Summary ---
- NOTES TO OUTPATIENT PROVIDER Notes to Outpatient Provider: Ms Hebert was admitted for respiratory failure from CHF. She is going [place] [facility] [place] [facility]. Orders not resulted at time of discharge: Pending orders 10/31/17 11:03 AFB Culture, Respiratory [TB] Routine AFB Smear [TB] Routine Fungal Culture [MYC] Routine Legionella Culture [RM] Routine Date of Encounter: 11/07/17 Time of Encounter: 10:45 - Discharge Diagnosis (1) Acute on chronic respiratory failure Priority: Primary Status: Resolved Qualifiers: Respiratory failure complication: hypoxia Qualified Code(s): J96.21 - Acute and chronic respiratory failure with hypoxia (2) Diastolic CHF Priority: Primary Status: Resolved Qualifiers: Heart failure chronicity: acute on chronic Qualified Code(s): I50.33 - Acute on chronic diastolic (congestive) heart failure (3) Diabetes mellitus, type 2 Priority: Secondary Status: Chronic Qualifiers: Diabetes mellitus termination clerk insulin use: without termination clerk use Diabetes mellitus complication status: with hyperglycemia Qualified Code(s): E11.65 - Type 2 diabetes mellitus with hyperglycemia (4) Pneumonia Priority: Secondary Status: Resolved Qualifiers: Pneumonia type: due to Pneumococcus Laterality: bilateral Lung location: lower lobe of lung Qualified Code(s): J13 - Pneumonia due to Streptococcus pneumoniae (5) Hypomagnesemia Priority: Secondary Status: Chronic (6) PAF (paroxysmal atrial fibrillation) Priority: Secondary Status: Chronic (7) IBS (irritable bowel syndrome) Priority: Secondary Status: Chronic Qualifiers: Irritable bowel syndrome type: with diarrhea Qualified Code(s): K58.0 - Irritable bowel syndrome with diarrhea Hospital course: Ms. Hebert is a 67 year old female with hx of COPD and CHF presented to ED with complaints for chest pain and cough. She was producing pink sputum. She was evaluated and admitted for further treatment. Ms Hebert was [facility]. She was started on high levels of oxygen. Due to concern for NSTEMI she was placed on heparin drip. She was also placed on IV abx due to concern for pneumonia. She was evaluated by cardiology who felt this was mostly CHF. She was seen by pulmonology and due to her history of alveolar hemorrhage she was taken to bronchoscopy on 10/31. She continued to have issues with significant hypoxemia and tachycardia. Amiodarone had been stopped due to pulmonary issues. Her diuretic was increased and she began to slowly improve. She was placed on Cardizem PO for rate control. She was seen by EP and will be followed outpatient. Today she feels OK. Her oxygen levels have been improving and we have been trying to taper her FiO2. She is afebrile and less congested. Her WBC has been elevated but she has been on steroids. She is also completing a 10 day course of Doxycycline. She is ready for discharge to [facility]. Discharge discussed with: patient, nurse - Time Spent with Patient Total time spent providing and/or coordinating discharge services: 45min - Discharge Medications Prescriptions: Furosemide [Lasix] 40 mg PO BID #2 tablet predniSONE [PredniSONE] 40 mg PO DAILY #4 tablet Home Medications: Aspirin 81 mg PO DAILY 06/05/16 [History] Multivitamin [Multivitamins] 1 cap PO DAILY 06/05/16 [History] Potassium Chloride 20 meq PO DAILY tab.er.prt 07/06/16 [Rx] Calcium Carbonate [Calcium] 1,000 mg PO BID 04/28/17 [History] Ferrous Sulfate 325 mg PO DAILY 04/28/17 [History] Alosetron HCl 0.5 mg PO BID 08/19/17 [History] Baclofen [Lioresal] 10 mg PO TID PRN 08/19/17 [History] Cholecalciferol (D-3) [Vitamin D] 2,000 unit PO DAILY #30 tablet 08/25/17 [Rx] Albuterol Sulfate [Ventolin Hfa] 2 puff IH Q6H PRN 09/11/17 [History] Beclomethasone Diprop 80mcg [QVAR 80 mcg] 1 puff IH BID 09/11/17 [History] BuPROPion XL (24 HR) [Wellbutrin Xl] 150 mg PO DAILY 09/11/17 [History] Citalopram [CeleXA] 20 mg PO DAILY 10/29/17 [History] Colestipol HCl [Colestid] 1 gm PO BID 10/29/17 [History] Cyanocobalamin (Vitamin B-12) [Vitamin B12] 1,000 mcg PO DAILY 10/29/17 [History ] Hyoscyamine SL [Levsin Sl] 0.125 mg SL Q4H PRN 10/29/17 [History] Magnesium Oxide [Mag-Ox] 400 mg PO TID 10/29/17 [History] Meclizine [Antivert] 25 mg PO DAILY PRN 10/29/17 [History] Oxygen 1 each .ROUTE AD 10/29/17 [History] Albuterol Neb [Proventil Neb] 2.5 mg IH Q2H PRN inhsol 11/07/17 [Rx] Benzonatate [Tessalon] 100 mg PO TID PRN capsule 11/07/17 [Rx] Diltiazem CD (24hr) [Cardizem CD] 120 mg PO DAILY cap.er.24h 11/07/17 [Rx] Doxycycline 100 mg PO Q12HR capsule 11/07/17 [Rx] Furosemide [Lasix] 40 mg PO BID #2 tablet 11/07/17 [Rx] Ipratropium/Albuterol Neb [Duoneb] 3 ml IH [id number] inhsol 11/07/17 [Rx] Menthol [Cough Drops] 9.1 mg PO Q2H PRN lozenge 11/07/17 [Rx] Nitroglycerin 0.4 mg SL Q5MIN PRN tab.subl 11/07/17 [Rx] predniSONE [PredniSONE] 40 mg PO DAILY #4 tablet 11/07/17 [Rx] Allergies/Adverse Reactions: 3 Allergy/AdvReac Type Severity Reaction Status Date / Time peanut Allergy Hives Verified 05/16/17 13:35 zinc Allergy Hives Verified 05/16/17 13:35 Sulfa (Sulfonamide AdvReac Mild constipatio Verified 05/16/17 13:35 Antibiotics) n Date of admission: 10/29/17 20:26 Primary care physician: Maribel Fernandez Consults: 10/30/17 19:45 Consult to Pulmonology [CONS] Routine Consulting Provider: [facility] Reason for Consult: Hypoxic resp failure and abnl CT Time Notified: 19:45 Call Completed: Yes 11/02/17 09:00 Consult to Physical Therapy [CONS] Routine Comment: Evaluate, develop and implement POC Reason for Consult: deconditioning of patient weakness Does patient have active BEDREST order?: No Is patient medically & hemodynamically stable?: No Patient assessed for mobility or mobilized this visit?: No OT [Consult to Occupational Therapy] [CONS] Routine Comment: Evaluate, develop and implement POC Reason for Consult: deconditioning of the patient and severe weakness Does patient have active BEDREST order?: No Is patient medically & hemodynamically stable?: No Patient assessed for mobility or mobilized this visit?: No 11/02/17 10:00 Consult to Nurse Navigator [CONS] Routine Comment: Acute Diasolic CHF; Acute resp fx; DERREK 11/03/17 09:45 Consult to Cardiology [CONS] Routine Comment: Consulting Provider: [facility] [place] Reason for Consult: Per Dr. Painting, reconsult for dyspnea, CHF Call Completed: Yes 11/05/17 11:57 Consult to Hostess [CONS] Routine Reason for SW Consult: PT/OT rec SNF; patient maybe agreeable to [facility]; does not want a SNF rehab; Patient is a possible d/c over the weekend!! Please make referral to [facility]. thank you. 11/05/17 12:29 Consult to Electrophysiology (EP) [CONS] Routine Consulting Provider: Electrophysiology [facility] Reason for Consult: history of VT, amio causing SOB Call Completed: Yes Discharging clinician: [place] Anticipated date of discharge: 11/07/17 - Constitutional Vitals: Temp Pulse Resp BP Pulse Ox 98.2 F 81 22 113/80 98 11/07/17 07:17 11/07/17 07:17 11/07/17 07:41 11/07/17 07:17 11/07/17 07:41 General appearance: Present: cooperative, A&O X 3, answers questions appropriately - Head Head exam: Present: normocephalic - Eye Eye exam: Present: conjuntiva pink - ENT ENT exam: Present: mucous membranes dry - Respiratory Respiratory exam: Present: decreased breath sounds, rales. Absent: rhonchi, wheezes Additional comments: Improved overall. - Cardiovascular Cardiovascular exam: Present: RRR. Absent: tachycardia - GI/Abdominal GI/Abdominal exam: Present: soft. Absent: tenderness - Extremities Exam Extremities exam: Present: warm. Absent: tenderness - Neurological Exam Neurological exam: Present: alert, oriented X3, no focal deficits - Skin Skin exam: Present: dry, warm - Patient Status Disposition: Transfer SNF Condition: Fair Functional capacity at discharge: uses cane/walker Overall status at discharge: patient is progressing back to baseline - Discharge Instructions Follow Up With: Sloane Murphy, [Primary Care Provider] - - Diet and Activity Activity: as per physical therapy, increase activity as tolerated Diet: diabetic diet, low fat, low cholesterol, low salt diet - VTE Documentation of Mechanical Device: Intermittent pneumatic compression device
--- NOTE | 2017-11-07 11:28 | Physician Discharge Referral ---
ExtendedCare Referral Info Transfer To: [facility] Provider in Charge after Transfer: PCP Institutional Level of Care: Skilled - Diagnosis (1) Acute on chronic respiratory failure Priority: Primary Status: Acute (2) Diastolic CHF Priority: Primary Status: Resolved (3) Diabetes mellitus, type 2 Priority: Secondary Status: Chronic (4) Pneumonia Priority: Secondary Status: Resolved (5) Hypomagnesemia Priority: Secondary Status: Chronic (6) PAF (paroxysmal atrial fibrillation) Priority: Secondary Status: Chronic (7) IBS (irritable bowel syndrome) Priority: Secondary Status: Chronic Expected Duration of Placement: Less than 30 days Prognosis: Fair Aware of Diagnosis: Patient Aware of Prognosis: Patient - Transfer Medications Prescriptions: Furosemide [Lasix] 40 mg PO BID #2 tablet predniSONE [PredniSONE] 40 mg PO DAILY #4 tablet Home Medications: Aspirin 81 mg PO DAILY 06/05/16 [History] Multivitamin [Multivitamins] 1 cap PO DAILY 06/05/16 [History] Potassium Chloride 20 meq PO DAILY tab.er.prt 07/06/16 [Rx] Calcium Carbonate [Calcium] 1,000 mg PO BID 04/28/17 [History] Ferrous Sulfate 325 mg PO DAILY 04/28/17 [History] Alosetron HCl 0.5 mg PO BID 08/19/17 [History] Baclofen [Lioresal] 10 mg PO TID PRN 08/19/17 [History] Cholecalciferol (D-3) [Vitamin D] 2,000 unit PO DAILY #30 tablet 08/25/17 [Rx] Albuterol Sulfate [Ventolin Hfa] 2 puff IH Q6H PRN 09/11/17 [History] Beclomethasone Diprop 80mcg [QVAR 80 mcg] 1 puff IH BID 09/11/17 [History] BuPROPion XL (24 HR) [Wellbutrin Xl] 150 mg PO DAILY 09/11/17 [History] Citalopram [CeleXA] 20 mg PO DAILY 10/29/17 [History] Colestipol HCl [Colestid] 1 gm PO BID 10/29/17 [History] Cyanocobalamin (Vitamin B-12) [Vitamin B12] 1,000 mcg PO DAILY 10/29/17 [History ] Hyoscyamine SL [Levsin Sl] 0.125 mg SL Q4H PRN 10/29/17 [History] Magnesium Oxide [Mag-Ox] 400 mg PO TID 10/29/17 [History] Meclizine [Antivert] 25 mg PO DAILY PRN 10/29/17 [History] Oxygen 1 each .ROUTE AD 10/29/17 [History] Albuterol Neb [Proventil Neb] 2.5 mg IH Q2H PRN inhsol 11/07/17 [Rx] Benzonatate [Tessalon] 100 mg PO TID PRN capsule 11/07/17 [Rx] Diltiazem CD (24hr) [Cardizem CD] 120 mg PO DAILY cap.er.24h 11/07/17 [Rx] Doxycycline 100 mg PO Q12HR capsule 11/07/17 [Rx] Furosemide [Lasix] 40 mg PO BID #2 tablet 11/07/17 [Rx] Ipratropium/Albuterol Neb [Duoneb] 3 ml IH [id number] inhsol 11/07/17 [Rx] Menthol [Cough Drops] 9.1 mg PO Q2H PRN lozenge 11/07/17 [Rx] Nitroglycerin 0.4 mg SL Q5MIN PRN tab.subl 11/07/17 [Rx] predniSONE [PredniSONE] 40 mg PO DAILY #4 tablet 11/07/17 [Rx] Allergies/Adverse Reactions: 3 Allergy/AdvReac Type Severity Reaction Status Date / Time peanut Allergy Hives Verified 05/16/17 13:35 zinc Allergy Hives Verified 05/16/17 13:35 Sulfa (Sulfonamide AdvReac Mild constipatio Verified 05/16/17 13:35 Antibiotics) n - Respiratory Orders Oxygen / L per min (Maintain saturation greater than 90%. Has been on 5 liters high flow and 94%.) Smoking Cessation: Smoking cessation has been advised. For more information, call the [place] Tobacco Quit Line at 7-986-ZZTV-NOW. - Ancillary Orders May use pressure relief devices daily prn, May consult with Dentist, Sleeping Bag Filler, Cloud Physicist PRN - Advance Directives Code Status: Full Code - History and Physical History/Physical reviewed & approved w/add comments: Less dyspneic - Mobility Orders Chair, Ambulate - Rehabiliation Orders Rehab Potential: Good Rehab Orders: Evaluation for Physical Therapy, Evaluation for Occupational Therapy - Treatments Skin tear care topically daily PRN per policy, May check for fecal impaction rectally daily PRN, Fleet enema rectally every other day PRN cleansing purposes - Diet Orders No Concentrated Sweets, Cardiac CERTIFICATION: I certify that the transfer of the above named patient to an Extended Care Facility is necessary for the continuing treatment of the diagnosis listed. The above information is true and accurate reflection of patient's current condition. Confidential - Redisclosure prohibited without a patient's written consent.
== END 2017-11-07 15:54 | DRG 264 ==
LOC: EMEROO 13:58 → 2NENU 13:58
PROVIDERS: ADMIT Internal Medicine; ATTEND Internal Medicine

== ENCOUNTER 2017-11-26 10:32 | Inpatient (IN) ==
[2017-11-26] MEDS ORDERED: Ondansetron ODT 4 MG TAB.RAPDIS SL ONE (10:46)
--- NOTE | 2017-11-26 11:12 | Emergency Department Note ---
Disposition Clinical Impression: Small bowel obstruction Nausea and vomiting Qualifiers: Vomiting type: bilious vomiting Qualified Code(s): R11.14 - Bilious vomiting Disposition: Admitted As Inpatient Condition: Fair Referrals: Sloane Murphy DO [Primary Care Provider] - Time of Disposition: 13:10 General Adult HPI - General Chief complaint: ED Nausea/Vomiting/Diarrhea Stated complaint: vomiting Time Seen by Provider: 11/26/17 10:34 Source: EMS Limitations: no limitations - History of Present Illness Pain Scale: 5 - Related Data Home Medications Medication Instructions Recorded Confirmed Aspirin 81 mg PO DAILY 06/05/16 10/29/17 Multivitamin [Multivitamins] 1 cap PO DAILY 06/05/16 10/29/17 Calcium Carbonate [Calcium] 1,000 mg PO BID 04/28/17 10/29/17 Ferrous Sulfate 325 mg PO DAILY 04/28/17 10/29/17 Alosetron HCl 0.5 mg PO BID 08/19/17 10/29/17 Baclofen [Lioresal] 10 mg PO TID PRN 08/19/17 10/29/17 Albuterol Sulfate [Ventolin Hfa] 2 puff IH Q6H PRN 09/11/17 10/29/17 Beclomethasone Diprop 80mcg [QVAR 1 puff IH BID 09/11/17 10/29/17 80 mcg] BuPROPion XL (24 HR) [Wellbutrin 150 mg PO DAILY 09/11/17 10/29/17 Xl] Citalopram [CeleXA] 20 mg PO DAILY 10/29/17 10/29/17 Colestipol HCl [Colestid] 1 gm PO BID 10/29/17 10/29/17 Cyanocobalamin (Vitamin B-12) 1,000 mcg PO DAILY 10/29/17 10/29/17 [Vitamin B12] Hyoscyamine SL [Levsin Sl] 0.125 mg SL Q4H PRN 10/29/17 10/29/17 Meclizine [Antivert] 25 mg PO DAILY PRN 10/29/17 10/29/17 Oxygen 1 each .ROUTE AD 10/29/17 10/29/17 Previous Rx's Medication Instructions Recorded Cholecalciferol (D-3) [Vitamin D] 2,000 unit PO DAILY #30 tablet 08/25/17 Albuterol Neb [Proventil Neb] 2.5 mg IH Q2H PRN inhsol 11/07/17 Menthol [Cough Drops] 9.1 mg PO Q2H PRN lozenge 11/07/17 Nitroglycerin 0.4 mg SL Q5MIN PRN tab.subl 11/07/17 Lipase/Protease/Amylase [Micky Ramos 2 each PO ACHS #240 capsule. 11/17/17 6,000 Units Capsule] Allergies Allergy/AdvReac Type Severity Reaction Status Date / Time peanut Allergy Hives Verified 11/26/17 10:44 zinc Allergy Hives Verified 11/26/17 10:44 Sulfa (Sulfonamide AdvReac Mild constipatio Verified 11/26/17 10:44 Antibiotics) n Past Medical History - Past Medical History Medical history: Reports: atrial fibrillation, CHF, COPD, coronary artery disease, diabetes, hyperlipidemia, hypertension, myocardial infarction, other Surgical history: Reports: hysterectomy, pacemaker/AICD, other Psychiatric history: Reports: no psych history GAMB CUTTER history: Reports: no GAMB CUTTER history - Social History Smoking Status: Never smoker Smokeless Tobacco Status: No Alcohol use: Reports: none Drug use: Reports: none Physical Exam - General Limitations: no limitations General appearance: alert, in no apparent distress Course Vital Signs Temperature 97.8 F 11/26/17 10:36 Pulse Rate 115 11/26/17 10:36 Respiratory Rate 18 11/26/17 10:36 Blood Pressure 108/76 11/26/17 10:36 O2 Sat by Pulse Oximetry 91 11/26/17 10:36 Temperature 97.8 F 11/26/17 10:36 Pulse Rate 111 11/26/17 12:38 Respiratory Rate 16 11/26/17 12:38 Blood Pressure 99/66 11/26/17 12:38 O2 Sat by Pulse Oximetry 96 11/26/17 12:38 Oxygen Delivery Oxygen Delivery Nasal Cannula Medical Decision Making - Lab Data Result diagrams: 11/26/17 11:07 11/26/17 11:07 Lab Results 11/26/17 11/26/17 11/26/17 Range/Units 11:07 11:07 11:09 WBC 10.3 (4.3-11.1) K/mcL RBC 3.59 L (3.82-4.97) M/mcL Hgb 10.5 L (11.5-15.4) g/dL Hct 34.7 L (35.3-44.9) % MCV 96.7 (83.0-100.0) fL MCH 29.2 (28.0-33.3) pg MCHC 30.3 L (31.6-35.5) g/dL RDW 16.4 H (11.5-14.5) % Plt Count 229 (140-400) K/mcL MPV 10.4 (9.4-12.4) fL Immature Gran % 0.4 (0-4) % Seg Neutrophils % 85.0 % Lymphocytes % 10.8 % Monocytes % 3.1 % Eosinophils % 0.4 % Basophils % 0.3 % Neutrophils # 8.8 (1.6-8.9) K/mcL Lymphocytes # 1.1 (0.6-4.6) K/mcL Monocytes # 0.3 (0.0-1.3) K/mcL Eosinophils # 0.0 (0.0-0.6) K/mcL Basophils # 0.0 (0.0-0.2) K/mcL PT 12.4 H (9.4-12.1) Seconds INR 1.1 Sodium 143 (136-145) mEq/L Potassium 3.6 (3.5-5.1) mEq/L Chloride 106 (98-107) mEq/L Carbon Dioxide 26 (23-29) mEq/L BUN 40 H (8-23) mg/dL Creatinine 1.67 H (0.60-1.20) mg/dL Est GFR ( Amer) 37 L (> 60) Est GFR (Non-Af Amer) 31 L (> 60) BUN/Creatinine Ratio 24 (6-26) Glucose 136 H (70-105) mg/dL Calculated Osmolality 308 H (280-300) Calcium 8.1 L (8.6-10.3) mg/dL Total Bilirubin 0.4 (0.3-1.0) mg/dL Direct Bilirubin 0.1 (0.0-0.2) mg/dL Indirect Bilirubin 0.3 (0.0-1.2) mg/dL AST 16 (13-39) Units/L ALT 10 (7-52) Units/L Alkaline Phosphatase 71 (34-104) Units/L Troponin I < 0.03 (< 0.04) ng/mL Serum Total Protein 5.7 L (6.4-8.9) g/dL Albumin 3.1 L (3.5-5.7) g/dL Globulin 2.6 (2.4-3.5) g/dL Albumin/Globulin Ratio 1.2 (1.1-2.2) Lipase < 3 L (11-82) Units/L Urine Color (Yellow) Urine Clarity (Clear) Urine pH (5.0-8.0) pH Units Ur Specific [place] (1.010-1.025) Urine Protein (Neg-Trace) mg/dL Urine Glucose (UA) (Normal) mg/dL Urine Ketones (Negative) mg/dL Urine Blood (Negative) Urine Nitrite (Negative) Urine Bilirubin (Negative) Urine Urobilinogen (Normal) mg/dL Ur Leukocyte Esterase (Negative) Ur Culture Indicated? (NO) 11/26/17 Range/Units 12:35 WBC (4.3-11.1) K/mcL RBC (3.82-4.97) M/mcL Hgb (11.5-15.4) g/dL Hct (35.3-44.9) % MCV (83.0-100.0) fL MCH (28.0-33.3) pg MCHC (31.6-35.5) g/dL RDW (11.5-14.5) % Plt Count (140-400) K/mcL MPV (9.4-12.4) fL Immature Gran % (0-4) % Seg Neutrophils % % Lymphocytes % % Monocytes % % Eosinophils % % Basophils % % Neutrophils # (1.6-8.9) K/mcL Lymphocytes # (0.6-4.6) K/mcL Monocytes # (0.0-1.3) K/mcL Eosinophils # (0.0-0.6) K/mcL Basophils # (0.0-0.2) K/mcL PT (9.4-12.1) Seconds INR Sodium (136-145) mEq/L Potassium (3.5-5.1) mEq/L Chloride (98-107) mEq/L Carbon Dioxide (23-29) mEq/L BUN (8-23) mg/dL Creatinine (0.60-1.20) mg/dL Est GFR ( Amer) (> 60) Est GFR (Non-Af Amer) (> 60) BUN/Creatinine Ratio (6-26) Glucose (70-105) mg/dL Calculated Osmolality (280-300) Calcium (8.6-10.3) mg/dL Total Bilirubin (0.3-1.0) mg/dL Direct Bilirubin (0.0-0.2) mg/dL Indirect Bilirubin (0.0-1.2) mg/dL AST (13-39) Units/L ALT (7-52) Units/L Alkaline Phosphatase (34-104) Units/L Troponin I (< 0.04) ng/mL Serum Total Protein (6.4-8.9) g/dL Albumin (3.5-5.7) g/dL Globulin (2.4-3.5) g/dL Albumin/Globulin Ratio (1.1-2.2) Lipase (11-82) Units/L Urine Color Yellow (Yellow) Urine Clarity Clear (Clear) Urine pH 5.0 (5.0-8.0) pH Units Ur Specific [place] 1.030 H (1.010-1.025) Urine Protein Negative (Neg-Trace) mg/dL Urine Glucose (UA) Normal (Normal) mg/dL Urine Ketones Trace H (Negative) mg/dL Urine Blood Negative (Negative) Urine Nitrite Negative (Negative) Urine Bilirubin Moderate H (Negative) Urine Urobilinogen Normal (Normal) mg/dL Ur Leukocyte Esterase Negative (Negative) Ur Culture Indicated? NO (NO) Attestation Statement - Attestation Attestation: I, Tien Peacock DO, examined this patient [id number] and my medical decision-making was reviewed with Cristobal Fields PGY-1, Resident Physician. I agree with the documented findings, disposition and treatment plan as described except to the extent set forth below. Please see my progress notes for details. 67-year-old female presents to the emergency room from home today for evaluation of nausea and vomiting. Patient has multiple medical issues including a recent diagnosis of pneumonia, atrial fibrillation is paroxysmal, chronic irritable bowel disease. Patient has mild abdominal discomfort and tenderness with no point tenderness guarding or rigidity. She has normal bowel sounds. She has been having normal urinary output and bowel movements. Denies any blood in her stool at this time. She denies any productive cough or sputum. She has not been able to keep anything down by mouth for the last 3 days secondary to the nausea and vomiting symptoms. Patient does appear to be slightly dehydrated on presentation. Mucous membranes are dry. She is alert she is oriented she follows commands and answers questions appropriately. Her lungs are clear heart is regular. Abdomen does have tenderness as described above. Patient moves all 4 extremities without any difficulty at this time. Vital signs are stable. Patient will have fluid resuscitation started this time as well as screening evaluation a chest x-ray CT the abdomen and labs including CBC chemistry function testing lipase and troponin. EKG will be collected as well. Patient's disposition will be determined once full workup and treatment course are completed. She did just discharged from the inpatient rehabilitation center in our health system. Otherwise she is clinically stable at this point. Treatment course to be completed at this time. See detailed documentation of the physical exam, medical intervention, medical decision- making and disposition of the resident physician's note. No critical care applied this patient's treatment course at this time. boiler plant worker has been advised that she will see the patient here in the emergency room. 1300 Patient has what appears to be small bowel obstruction based on CT scan. Labs are otherwise unremarkable this point. Or at least at baseline the patient's presentation. NG tube will be placed considering she does have a small bowel obstruction with no focal transition point. She has had nausea and vomiting. Patient will decompress the abdomen at this point be provided with nausea medication and fluids. Patient will be admitted. Surgical consultation will be established and admission process will be completed.
--- NOTE | 2017-11-26 11:20 | Emergency Department Note ---
Disposition Clinical Impression: Small bowel obstruction Nausea and vomiting Qualifiers: Vomiting type: bilious vomiting Qualified Code(s): R11.14 - Bilious vomiting Disposition: Admitted As Inpatient Condition: Fair Referrals: Sloane Murphy DO [Primary Care Provider] - Forms: ED Satisfaction Letter, Work/School Release Time of Disposition: 13:59 Nausea/Vomiting/Diarrhea HPI - General Chief complaint: ED Abdominal Pain Stated complaint: vomiting Time Seen by Provider: 11/26/17 10:34 Source: EMS Limitations: no limitations Nursing Notes Reviewed: Yes Vital Signs Reviewed: Yes - History of Present Illness HPI Narrative: Patient is a 67-year-old female past medical history of pneumonia, COPD, afibatrial fibrillation, coronary artery disease, diabetes, hyperlipidemia, hypertension, and myocardial infarction that presents for nausea, vomiting, and abdominal pain. Patient says symptoms have been occurring for the past 2 days. She says she experiences right lower quadrant abdominal pain that is constant. She rates the pain as a 5 out of 10 and is exacerbated by eating food. She complains of bilious vomiting, especially after eating. She she denies any hematemesis. Patient was recently diagnosed with pneumonia 4 weeks ago but says she has been improving since then. She still admits to a minor productive cough with clear sputum. She denies any fever. She does admit to a posttussive chest pain and shortness of breath at rest. Denies any syncope. She denies any constipation, diarrhea, hematochezia, or melena. She denies any dysuria or hematuria. Pt Subjective Complaint: nausea, vomiting - Related Data Home Medications Medication Instructions Recorded Confirmed Aspirin 81 mg PO DAILY 06/05/16 10/29/17 Multivitamin [Multivitamins] 1 cap PO DAILY 06/05/16 10/29/17 Calcium Carbonate [Calcium] 1,000 mg PO BID 04/28/17 10/29/17 Ferrous Sulfate 325 mg PO DAILY 04/28/17 10/29/17 Alosetron HCl 0.5 mg PO BID 08/19/17 10/29/17 Baclofen [Lioresal] 10 mg PO TID PRN 08/19/17 10/29/17 Albuterol Sulfate [Ventolin Hfa] 2 puff IH Q6H PRN 09/11/17 10/29/17 Beclomethasone Diprop 80mcg [QVAR 1 puff IH BID 09/11/17 10/29/17 80 mcg] BuPROPion XL (24 HR) [Wellbutrin 150 mg PO DAILY 09/11/17 10/29/17 Xl] Citalopram [CeleXA] 20 mg PO DAILY 10/29/17 10/29/17 Colestipol HCl [Colestid] 1 gm PO BID 10/29/17 10/29/17 Cyanocobalamin (Vitamin B-12) 1,000 mcg PO DAILY 10/29/17 10/29/17 [Vitamin B12] Hyoscyamine SL [Levsin Sl] 0.125 mg SL Q4H PRN 10/29/17 10/29/17 Meclizine [Antivert] 25 mg PO DAILY PRN 10/29/17 10/29/17 Oxygen 1 each .ROUTE AD 10/29/17 10/29/17 Previous Rx's Medication Instructions Recorded Cholecalciferol (D-3) [Vitamin D] 2,000 unit PO DAILY #30 tablet 08/25/17 Albuterol Neb [Proventil Neb] 2.5 mg IH Q2H PRN inhsol 11/07/17 Menthol [Cough Drops] 9.1 mg PO Q2H PRN lozenge 11/07/17 Nitroglycerin 0.4 mg SL Q5MIN PRN tab.subl 11/07/17 Lipase/Protease/Amylase [Creon Dr 2 each PO ACHS #240 capsule. 11/17/17 6,000 Units Capsule] Allergies Allergy/AdvReac Type Severity Reaction Status Date / Time peanut Allergy Hives Verified 11/26/17 10:44 zinc Allergy Hives Verified 11/26/17 10:44 Sulfa (Sulfonamide AdvReac Mild constipatio Verified 11/26/17 10:44 Antibiotics) n Constitutional: Denies: fever, chills, weakness, weight change Cardiovascular: Reports: chest pain. Denies: edema, syncope Respiratory: Reports: cough, dyspnea, sputum production. Denies: wheezes, hemoptysis Gastrointestinal: Reports: abdominal pain, nausea, vomiting. Denies: diarrhea, constipation, hematemesis, melena, hematochezia Genitourinary: Denies: dysuria, frequency, hematuria, discharge Past Medical History - Past Medical History Medical history: Reports: atrial fibrillation, CHF, COPD, coronary artery disease, diabetes, hyperlipidemia, hypertension, myocardial infarction, other Surgical history: Reports: hysterectomy, pacemaker/AICD, other Psychiatric history: Reports: no psych history DEMURRAGE AGENT history: Reports: no DEMURRAGE AGENT history - Social History Smoking Status: Never smoker Smokeless Tobacco Status: No Alcohol use: Reports: none Drug use: Reports: none Physical Exam - General Limitations: no limitations General appearance: alert, in no apparent distress - Chest Chest inspection: Present: normal inspection, symmetric chest wall rise - Respiratory Respiratory exam: Present: normal lung sounds bilaterally - Cardiovascular Cardiovascular exam: Present: irregular rhythm - Abdominal Exam Abdominal exam: Present: soft, tenderness, normal bowel sounds. Absent: guarding, rebound, rigidity Abdominal tenderness: Present: suprapubic - Extremities Exam Extremities exam: Present: normal inspection, full ROM, normal capillary refill. Absent: tenderness, pedal edema, calf tenderness Course Course Narrative: Patient was hypotensive and given a 1 L bolus of NS. Zofran given for nausea. CXR showed persistant lower lobe opacities which will need to be followed up. Abdominal CT shows evidence of small bowel obstruction. Potassium level within normal limits at 3.6. EKG shows Atrial flutter were previous EKG showed NSR. Was able to talk to Dr. Chauhan from surgery who recommended placing the person on NG tube. He will be able to see the patient once she is admitted and on consultation capacity. Spoke to hospitalist Dr. Little who agreed to admit the patient. Chest X-Ray 11/26/17 11:02 IMPRESSION: Interval resolution of right lung opacities, and left upper lung opacity. Persistent left lower lobe pulmonary opacities. Continued radiographic follow-up to complete resolution is recommended. Partially imaged multiple dilated bowel loops within upper abdomen. Clinical correlation with any concern of intra-abdominal pathology is recommended. D/ / 11/26/2017 11:38:08 Elias Mccurdy MD / [facility] Interpreting Provider: Elias Mccurdy MD Abdomen/Pelvis CT 11/26/17 11:03 IMPRESSION: 1. Small-bowel obstruction with a transition point not clearly identified. There is fecalization of the small bowel contents. The colon is relatively decompressed. 2. No evidence of nephrourolithiasis. 3. Interstitial lung disease with associated consolidations in the lung bases which may be related to an infectious/inflammatory process which have increased since the 10/15/2017 exam. D/ / 11/26/2017 12:40:55 Mauricio Alexandre MD / [facility] Interpreting Provider: Mauricio Alexandre MD Vital Signs Temperature 97.8 F 11/26/17 10:36 Pulse Rate 115 11/26/17 10:36 Respiratory Rate 18 11/26/17 10:36 Blood Pressure 108/76 11/26/17 10:36 O2 Sat by Pulse Oximetry 91 11/26/17 10:36 Temperature 97.8 F 11/26/17 10:36 Pulse Rate 111 11/26/17 12:38 Respiratory Rate 16 11/26/17 12:38 Blood Pressure 99/66 11/26/17 12:38 O2 Sat by Pulse Oximetry 96 11/26/17 12:38 Oxygen Delivery Oxygen Delivery Nasal Cannula Nausea/Vomiting/Diarrhea - Lab Data Result diagrams: 11/26/17 11:07 11/26/17 11:07 Lab Results 11/26/17 11/26/17 11/26/17 Range/Units 11:07 11:07 11:09 WBC 10.3 (4.3-11.1) K/mcL RBC 3.59 L (3.82-4.97) M/mcL Hgb 10.5 L (11.5-15.4) g/dL Hct 34.7 L (35.3-44.9) % MCV 96.7 (83.0-100.0) fL MCH 29.2 (28.0-33.3) pg MCHC 30.3 L (31.6-35.5) g/dL RDW 16.4 H (11.5-14.5) % Plt Count 229 (140-400) K/mcL MPV 10.4 (9.4-12.4) fL Immature Gran % 0.4 (0-4) % Seg Neutrophils % 85.0 % Lymphocytes % 10.8 % Monocytes % 3.1 % Eosinophils % 0.4 % Basophils % 0.3 % Neutrophils # 8.8 (1.6-8.9) K/mcL Lymphocytes # 1.1 (0.6-4.6) K/mcL Monocytes # 0.3 (0.0-1.3) K/mcL Eosinophils # 0.0 (0.0-0.6) K/mcL Basophils # 0.0 (0.0-0.2) K/mcL PT 12.4 H (9.4-12.1) Seconds INR 1.1 Sodium 143 (136-145) mEq/L Potassium 3.6 (3.5-5.1) mEq/L Chloride 106 (98-107) mEq/L Carbon Dioxide 26 (23-29) mEq/L BUN 40 H (8-23) mg/dL Creatinine 1.67 H (0.60-1.20) mg/dL Est GFR ( Amer) 37 L (> 60) Est GFR (Non-Af Amer) 31 L (> 60) BUN/Creatinine Ratio 24 (6-26) Glucose 136 H (70-105) mg/dL Calculated Osmolality 308 H (280-300) Calcium 8.1 L (8.6-10.3) mg/dL Total Bilirubin 0.4 (0.3-1.0) mg/dL Direct Bilirubin 0.1 (0.0-0.2) mg/dL Indirect Bilirubin 0.3 (0.0-1.2) mg/dL AST 16 (13-39) Units/L ALT 10 (7-52) Units/L Alkaline Phosphatase 71 (34-104) Units/L Troponin I < 0.03 (< 0.04) ng/mL Serum Total Protein 5.7 L (6.4-8.9) g/dL Albumin 3.1 L (3.5-5.7) g/dL Globulin 2.6 (2.4-3.5) g/dL Albumin/Globulin Ratio 1.2 (1.1-2.2) Lipase < 3 L (11-82) Units/L Urine Color (Yellow) Urine Clarity (Clear) Urine pH (5.0-8.0) pH Units Ur Specific [place] (1.010-1.025) Urine Protein (Neg-Trace) mg/dL Urine Glucose (UA) (Normal) mg/dL Urine Ketones (Negative) mg/dL Urine Blood (Negative) Urine Nitrite (Negative) Urine Bilirubin (Negative) Urine Urobilinogen (Normal) mg/dL Ur Leukocyte Esterase (Negative) Ur Culture Indicated? (NO) 11/26/17 Range/Units 12:35 WBC (4.3-11.1) K/mcL RBC (3.82-4.97) M/mcL Hgb (11.5-15.4) g/dL Hct (35.3-44.9) % MCV (83.0-100.0) fL MCH (28.0-33.3) pg MCHC (31.6-35.5) g/dL RDW (11.5-14.5) % Plt Count (140-400) K/mcL MPV (9.4-12.4) fL Immature Gran % (0-4) % Seg Neutrophils % % Lymphocytes % % Monocytes % % Eosinophils % % Basophils % % Neutrophils # (1.6-8.9) K/mcL Lymphocytes # (0.6-4.6) K/mcL Monocytes # (0.0-1.3) K/mcL Eosinophils # (0.0-0.6) K/mcL Basophils # (0.0-0.2) K/mcL PT (9.4-12.1) Seconds INR Sodium (136-145) mEq/L Potassium (3.5-5.1) mEq/L Chloride (98-107) mEq/L Carbon Dioxide (23-29) mEq/L BUN (8-23) mg/dL Creatinine (0.60-1.20) mg/dL Est GFR ( Amer) (> 60) Est GFR (Non-Af Amer) (> 60) BUN/Creatinine Ratio (6-26) Glucose (70-105) mg/dL Calculated Osmolality (280-300) Calcium (8.6-10.3) mg/dL Total Bilirubin (0.3-1.0) mg/dL Direct Bilirubin (0.0-0.2) mg/dL Indirect Bilirubin (0.0-1.2) mg/dL AST (13-39) Units/L ALT (7-52) Units/L Alkaline Phosphatase (34-104) Units/L Troponin I (< 0.04) ng/mL Serum Total Protein (6.4-8.9) g/dL Albumin (3.5-5.7) g/dL Globulin (2.4-3.5) g/dL Albumin/Globulin Ratio (1.1-2.2) Lipase (11-82) Units/L Urine Color Yellow (Yellow) Urine Clarity Clear (Clear) Urine pH 5.0 (5.0-8.0) pH Units Ur Specific [place] 1.030 H (1.010-1.025) Urine Protein Negative (Neg-Trace) mg/dL Urine Glucose (UA) Normal (Normal) mg/dL Urine Ketones Trace H (Negative) mg/dL Urine Blood Negative (Negative) Urine Nitrite Negative (Negative) Urine Bilirubin Moderate H (Negative) Urine Urobilinogen Normal (Normal) mg/dL Ur Leukocyte Esterase Negative (Negative) Ur Culture Indicated? NO (NO) - EKG Data EKG attestation: Yes I reviewed and interpreted this EKG. EKG shows normal: axis, intervals, ST-T waves Rate: normal Rhythm: A. flutter [place]/QRS: normal Attestation Statement - Attestation Attestation: I, Tien Peacock DO, examined this patient [id number] and my medical decision-making was reviewed with Cristobal Fields PGY-1, Resident Physician. I agree with the documented findings, disposition and treatment plan as described except to the extent set forth below. Please see my progress notes for details.
[2017-11-26 11:31] LABS: Basophils % 0.3 %; Eosinophils % 0.4 %; Hematocrit 34.7 % (35.3-44.9); Hemoglobin 10.5 g/dL (11.5-15.4); Immature Granulocytes % 0.4 % (0-4); Lymphocytes # 1.1 K/mcL (0.6-4.6); Lymphocytes % 10.8 %; Mean Corpuscular HGB Conc 30.3 g/dL (31.6-35.5); Mean Corpuscular Hemoglobin 29.2 pg (28.0-33.3); Mean Corpuscular Volume 96.7 fL (83.0-100.0); Mean Platelet Volume 10.4 fL (9.4-12.4); Monocytes # 0.3 K/mcL (0.0-1.3); Monocytes % 3.1 %; Neutrophils # 8.8 K/mcL (1.6-8.9); Platelet Count 229 K/mcL (140-400); Red Blood Count 3.59 M/mcL (3.82-4.97); Red Cell Distribution Width 16.4 % (11.5-14.5)
[2017-11-26 11:43] LABS: Troponin I < 0.03 ng/mL (< 0.04)
[2017-11-26 11:53] LABS: Alanine Aminotransferase 10 Units/L (7-52); Albumin 3.1 g/dL (3.5-5.7); Albumin/Globulin Ratio 1.2 (1.1-2.2); Alkaline Phosphatase 71 Units/L (34-104); Aspartate Amino Transferase 16 Units/L (13-39); BUN/Creatinine Ratio 24 (6-26); Bilirubin,Direct 0.1 mg/dL (0.0-0.2); Bilirubin,Indirect 0.3 mg/dL (0.0-1.2); Bilirubin,Total 0.4 mg/dL (0.3-1.0); Blood Urea Nitrogen 40 mg/dL (8-23); Calcium 8.1 mg/dL (8.6-10.3); Carbon Dioxide 26 mEq/L (23-29); Chloride 106 mEq/L (98-107); Globulin 2.6 g/dL (2.4-3.5); Glucose 136 mg/dL (70-105); Lipase < 3 Units/L (11-82); Osmolality,Calculated 308 (280-300); Potassium 3.6 mEq/L (3.5-5.1); Sodium 143 mEq/L (136-145); Total Protein 5.7 g/dL (6.4-8.9); eGFR For African Americans 37 (> 60); eGFR For Non-African Americans 31 (> 60)
[2017-11-26] MEDS ORDERED: 0.9 % Sodium Chloride 1,000 ML IVC ONE (11:59)
[2017-11-26 12:55] LABS: Bilirubin,Urine Moderate (Negative); Blood,Urine Negative (Negative); Clarity,Urine Clear (Clear); Color,Urine Yellow (Yellow); Glucose,Urine (UA) Normal (Normal); Ketones,Urine Trace mg/dL (Negative); Leukocyte Esterase,Urine Negative (Negative); Nitrite,Urine Negative (Negative); Protein,Urine Negative (Neg-Trace); Urobilinogen,Urine Normal (Normal)
[2017-11-26 13:36] LABS: INR 1.1; Prothrombin Time 12.4 Seconds (9.4-12.1)
--- NOTE | 2017-11-26 14:11 | General Surgery Consult Note ---
<Reed Hernandez - Last Filed: 11/26/17 16:06> Date of Encounter: 11/26/17 Time of Encounter: 14:10 Assessment and Plan (1) Small bowel obstruction Current Visit: Yes Status: Acute Partial obstruction at this point CXR showed: Partially imaged multiple dilated bowel loops within upper abdomen. " CT abd/pelvis demonstrated: "There are several scattered colonic diverticula. There is a small bowel obstruction with a transition point not clearly seen. There is fecalization of the small bowel contents." Patient with N/V abd pn x 2 days Patient reports last BM this morning normal formed stool Patient reports still passing gas. Patient tender RLQ Normal Bowel Sounds. Plan: NPO, except ice chips may have 1 cup of ice every 6 hours NG to LIWS IV fluid rehydration Supportive care PRN pain medication if needed. avoid opioids if possible PRN antiemetics Serial abdominal exams. continue to monitor NG output. History of Present Illness Consult date: 11/26/17 Reason for consult: abdominal pain (SBO) Requesting physician: Cristobal Morris History of present illness: 67 yo F c PMHx of COPD, A fib, CHF, CAD s/p stent, AICD, DM, HTN, HLD, AR, Hysterectomy who reports to the [facility] ED c/o 2 days of N/V and abdominal pain. Patient reports pain is mostly located in RLQ and is constant and 5/10. She reports Vomit is bilious. She says she hasn't been able to keep anything down for the last 2 days and that eating makes her pain worse so she's stopped eating. Patient reports having a normal formed bowel movement this morning. She reports she is still passing gas. Patient denies Hematemesis, hematochezia, melena, Fever, Chills, dysuria. Patient was recently admitted for Pneumonia on 10/29/17 and discharged on 11/07/17. Patient was worked up in the ED with Blood work that was notable for: WBC 10.3 Hgb 10.5(this is around her baseline), normal LFTs, normal electrolytes, Lipase <3. Patient also got a CXR which showed: "Interval resolution of right lung opacities, and left upper lung opacity. Persistent left lower lobe pulmonary opacities. Continued radiographic follow-up to complete resolution is recommended. Partially imaged multiple dilated bowel loops within upper abdomen. " She also got a CT abd/pelvis which demonstrated: "There are several scattered colonic diverticula. There is a small bowel obstruction with a transition point not clearly seen. There is fecalization of the small bowel contents." Case was discussed with Dr. Chauhan who agreed to see the patient in consult and recommended placign an NG tube. At time of evaluation NG tube was in place. Patient reports pain is manageable and improves with current medications. She reprots soem continued nausea with the NG tube, but denies further vomiting. Past Med Surg Social Fam HX - Past Medical History Medical history: atrial fibrillation, CHF, COPD, coronary artery disease, diabetes, hyperlipidemia, hypertension, myocardial infarction, other Psychiatric history: no psych history - Past Surgical History Surgical History: hysterectomy, pacemaker/AICD, other - Social History Smoking Status: Never smoker Smokeless Tobacco Status: No Alcohol use: none Drug use: none - Family History Mother Living Status: Hx Family Cardiac Disorders: Yes Hx Family Endocrine Disorder: Yes Medications and Allergies Aspirin 81 mg PO DAILY 06/05/16 [History] Multivitamin [Multivitamins] 1 cap PO DAILY 06/05/16 [History] Calcium Carbonate [Calcium] 1,000 mg PO BID 04/28/17 [History] Ferrous Sulfate 325 mg PO DAILY 04/28/17 [History] Alosetron HCl 0.5 mg PO BID 08/19/17 [History] Baclofen [Lioresal] 10 mg PO TID PRN 08/19/17 [History] Cholecalciferol (D-3) [Vitamin D] 2,000 unit PO DAILY #30 tablet 08/25/17 [Rx] Albuterol Sulfate [Ventolin Hfa] 2 puff IH Q6H PRN 09/11/17 [History] Beclomethasone Diprop 80mcg [QVAR 80 mcg] 1 puff IH BID 09/11/17 [History] BuPROPion XL (24 HR) [Wellbutrin Xl] 150 mg PO DAILY 09/11/17 [History] Colestipol HCl [Colestid] 2 gm PO DAILY 10/29/17 [History] Cyanocobalamin (Vitamin B-12) [Vitamin B12] 1,000 mcg PO DAILY 10/29/17 [History ] Hyoscyamine SL [Levsin Sl] 0.125 mg SL Q4H PRN 10/29/17 [History] Meclizine [Antivert] 25 mg PO DAILY PRN 10/29/17 [History] Oxygen 2 l .ROUTE AD 10/29/17 [History] Albuterol Neb [Proventil Neb] 2.5 mg IH Q2H PRN inhsol 11/07/17 [Rx] Menthol [Cough Drops] 9.1 mg PO Q2H PRN lozenge 11/07/17 [Rx] Nitroglycerin 0.4 mg SL Q5MIN PRN tab.subl 11/07/17 [Rx] Lipase/Protease/Amylase [Micky Ramos 6,000 Units Capsule] 2 each PO ACHS #240 capsule. 11/17/17 [Rx] Diltiazem CD (24hr) [Cardizem CD] 120 mg PO DAILY 11/27/17 [History] Magnesium Oxide [Mag-Ox] 400 mg PO TID 11/27/17 [History] 3 Allergy/AdvReac Type Severity Reaction Status Date / Time peanut Allergy Hives Verified 11/26/17 10:44 zinc Allergy Hives Verified 11/26/17 10:44 Sulfa (Sulfonamide AdvReac Mild constipatio Verified 11/26/17 10:44 Antibiotics) n Review of Systems All systems PM: The remainder of the systems were reviewed and are negative General Surgery Exam Initial Vital Signs Temp Pulse Resp BP Pulse Ox 97.8 F 115 18 108/76 91 11/26/17 10:36 11/26/17 10:36 11/26/17 10:36 11/26/17 10:36 11/26/17 10:36 - General physical appearance well developed, well nourished, no distress - Eyes normal ocular movement - ENT normal mucosa, Other (NG tube in place) - Neck trachea midline - Respiratory normal expansion, normal respiratory effort, clear to auscultation - Cardiovascular Cardiovascular exam: Present: irregular rhythm, no murmurs/rubs/gallops - Abdomen Abdomen general surgery: Present: bowel sounds present, soft, tender Abdominal Tenderness: Present: RLQ - Integumentary Integumentary general surgery: Present: warm and dry - Neurologic Present: CN 2-12 grossly intact. Absent: combative, confused, disoriented - Musculoskeletal Present: normal posture - Psychiatric Psychiatric general surgery: Present: A&Ox3, appropriate, speech is normal, memory intact Exam Initial Vital Signs Temp Pulse Resp BP Pulse Ox 97.8 F 115 18 108/76 91 11/26/17 10:36 11/26/17 10:36 11/26/17 10:36 11/26/17 10:36 11/26/17 10:36 Results - Labs 11/26/17 11:07 11/26/17 11:07 Abnormal lab results RBC 3.59 M/mcL (3.82-4.97) L 11/26/17 11:07 Hgb 10.5 g/dL (11.5-15.4) L 11/26/17 11:07 Hct 34.7 % (35.3-44.9) L 11/26/17 11:07 MCHC 30.3 g/dL (31.6-35.5) L 11/26/17 11:07 RDW 16.4 % (11.5-14.5) H 11/26/17 11:07 PT 12.4 Seconds (9.4-12.1) H 11/26/17 11:09 BUN 40 mg/dL (8-23) H 11/26/17 11:07 Creatinine 1.67 mg/dL (0.60-1.20) H 11/26/17 11:07 Est GFR ( Amer) 37 (> 60) L 11/26/17 11:07 Est GFR (Non-Af Amer) 31 (> 60) L 11/26/17 11:07 Glucose 136 mg/dL (70-105) H 11/26/17 11:07 Calculated Osmolality 308 (280-300) H 11/26/17 11:07 Calcium 8.1 mg/dL (8.6-10.3) L 11/26/17 11:07 Serum Total Protein 5.7 g/dL (6.4-8.9) L 11/26/17 11:07 Albumin 3.1 g/dL (3.5-5.7) L 11/26/17 11:07 Lipase < 3 Units/L (11-82) L 11/26/17 11:07 Ur Specific [place] 1.030 (1.010-1.025) H 11/26/17 12:35 Urine Ketones Trace mg/dL (Negative) H 11/26/17 12:35 Urine Bilirubin Moderate (Negative) H 11/26/17 12:35 All other labs normal. Consult Discharge Plan - Plan Referrals: Sloane Murphy, DO [Primary Care Provider] - <Nadeem Chauhan - Last Filed: 11/28/17 08:11> Date of Encounter: 11/26/17 Review of Systems All systems PM: The remainder of the systems were reviewed and are negative General Surgery Exam Initial Vital Signs Temp Pulse Resp BP Pulse Ox 97.8 F 115 18 108/76 91 11/26/17 10:36 11/26/17 10:36 11/26/17 10:36 11/26/17 10:36 11/26/17 10:36 Exam Initial Vital Signs Temp Pulse Resp BP Pulse Ox 97.8 F 115 18 108/76 91 11/26/17 10:36 11/26/17 10:36 11/26/17 10:36 11/26/17 10:36 11/26/17 10:36 Results - Labs 11/28/17 01:28 11/28/17 01:28 Abnormal lab results RBC 2.97 M/mcL (3.82-4.97) L 11/28/17 01:28 Hgb 8.7 g/dL (11.5-15.4) L 11/28/17 01:28 Hct 28.3 % (35.3-44.9) L 11/28/17 01:28 MCHC 30.7 g/dL (31.6-35.5) L 11/28/17 01:28 RDW 15.8 % (11.5-14.5) H 11/28/17 01:28 PT 12.4 Seconds (9.4-12.1) H 11/26/17 11:09 Potassium 3.0 mEq/L (3.5-5.1) L 11/28/17 01:28 Carbon Dioxide 33 mEq/L (23-29) H 11/28/17 01:28 Est GFR ( Amer) 56 (> 60) L 11/28/17 01:28 Est GFR (Non-Af Amer) 46 (> 60) L 11/28/17 01:28 Calcium 7.5 mg/dL (8.6-10.3) L 11/28/17 01:28 Serum Total Protein 5.7 g/dL (6.4-8.9) L 11/26/17 11:07 Albumin 3.1 g/dL (3.5-5.7) L 11/26/17 11:07 Lipase < 3 Units/L (11-82) L 11/26/17 11:07 Ur Specific [place] 1.030 (1.010-1.025) H 11/26/17 12:35 Urine Ketones Trace mg/dL (Negative) H 11/26/17 12:35 Urine Bilirubin Moderate (Negative) H 11/26/17 12:35 Diabetes panel 11/28/17 Range/Units 01:28 Sodium 143 (136-145) mEq/L Potassium 3.0 L (3.5-5.1) mEq/L Chloride 105 (98-107) mEq/L Carbon Dioxide 33 H (23-29) mEq/L BUN 23 (8-23) mg/dL Creatinine 1.18 (0.60-1.20) mg/dL Glucose 83 (70-105) mg/dL Calcium 7.5 L (8.6-10.3) mg/dL Calcium panel 11/28/17 Range/Units 01:28 Calcium 7.5 L (8.6-10.3) mg/dL Pituitary panel 11/28/17 Range/Units 01:28 Sodium 143 (136-145) mEq/L Potassium 3.0 L (3.5-5.1) mEq/L Chloride 105 (98-107) mEq/L Carbon Dioxide 33 H (23-29) mEq/L BUN 23 (8-23) mg/dL Creatinine 1.18 (0.60-1.20) mg/dL Glucose 83 (70-105) mg/dL Calcium 7.5 L (8.6-10.3) mg/dL Adrenal panel 11/28/17 Range/Units 01:28 Sodium 143 (136-145) mEq/L Potassium 3.0 L (3.5-5.1) mEq/L Chloride 105 (98-107) mEq/L Carbon Dioxide 33 H (23-29) mEq/L BUN 23 (8-23) mg/dL Creatinine 1.18 (0.60-1.20) mg/dL Glucose 83 (70-105) mg/dL Calcium 7.5 L (8.6-10.3) mg/dL All other labs normal. - Attending Attestation I examined this patient and my medical decision-making was reviewed with the Resident Physician. I agree with the documented findings, disposition and treatment plan as described except to the extent set forth below. I reviewed the above assessment and evaluation and agree with the above plan. Patient has had some episodes of abdominal pain 3-4 days prior to presentation. She continues to admit to positive flatus and bowel movements. On exam she is less tender today on examination she was per the patient. NG tube is in place with some succus output. I personally reviewed the CT scan images which show some dilation of the small bowel with no free air or free fluid. Continue with decompression and serial abdominal exams. We will follow with you.
[2017-11-26] MEDS ORDERED: Naloxone 0.4 MG/ML INJ IVP PRN (14:41)
--- NOTE | 2017-11-26 15:07 | Internal Med History&Physical ---
<Mer Sanders R - Last Filed: 11/26/17 15:34> Date of Encounter: 11/26/17 Time of Encounter: 14:56 Internal Medicine - H&P: HPI Admitted From: Home Plans for Post Hospital Care: Home History of present illness: Ms. Hebert is a 67 year old female who presents to the ED today with complaints of nausea vomiting and abdominal pain that began 2 days ago. Patient indicated she ate a [employer] 2 days ago and then symptoms began. She initially related to her food intake and then began to have bilious vomiting. Patient does have a history of IBS and states that her stools have been anywhere between diarrhea and soft formed. She indicated she used to have up to 12-13 of them per day. She denies fever. Appetite poor past 2 days states has had 2 popsicles total. The patient also indicated she had soft formed stool this morning. When blood cell count is 10.3, patient noted to be more elevated in the past. Had a recent visit in October due to pneumonia. Today chest x-ray shows consolidation in the right lung and in the left upper lobe and bronchiectasis. Will start IV Levaquin daily The patient indicated that she has had a cough frequently however she denied any other cold symptoms the lung sounds are diminished at this time. Patient indicated that she wears 4 L home O2, she has a documented history of CHF and COPD. Patient also has a defibrillator, she says she does not have a pacemaker EKG showed a flutter, tachycardia, rate was only 94. Patient does report history of diabetes mellitus but states has not received any diabetic meds in at least 2 years since she lost weight. Heart rate was 115 at initial presentation. Patient was seen by surgery in the ED, and NG tube currently placed. Patient will be given bowel rest, IV fluids, pain control, and NG tube will be maintained to low intermittent wall suction. Past Med Surg Social Fam HX - Past Medical History Medical history: atrial fibrillation, CHF, COPD, coronary artery disease, diabetes, hyperlipidemia, hypertension, myocardial infarction, other Psychiatric history: no psych history - Past Surgical History Surgical History: hysterectomy, pacemaker/AICD, other - Social History Smoking Status: Never smoker Smokeless Tobacco Status: No Alcohol use: none Drug use: none - Family History Mother Living Status: Hx Family Cardiac Disorders: Yes Hx Family Endocrine Disorder: Yes Internal Medicine - H&P: Meds Aspirin 81 mg PO DAILY 06/05/16 [History] Multivitamin [Multivitamins] 1 cap PO DAILY 06/05/16 [History] Calcium Carbonate [Calcium] 1,000 mg PO BID 04/28/17 [History] Ferrous Sulfate 325 mg PO DAILY 04/28/17 [History] Alosetron HCl 0.5 mg PO BID 08/19/17 [History] Baclofen [Lioresal] 10 mg PO TID PRN 08/19/17 [History] Cholecalciferol (D-3) [Vitamin D] 2,000 unit PO DAILY #30 tablet 08/25/17 [Rx] Albuterol Sulfate [Ventolin Hfa] 2 puff IH Q6H PRN 09/11/17 [History] Beclomethasone Diprop 80mcg [QVAR 80 mcg] 1 puff IH BID 09/11/17 [History] BuPROPion XL (24 HR) [Wellbutrin Xl] 150 mg PO DAILY 09/11/17 [History] Citalopram [CeleXA] 20 mg PO DAILY 10/29/17 [History] Colestipol HCl [Colestid] 1 gm PO BID 10/29/17 [History] Cyanocobalamin (Vitamin B-12) [Vitamin B12] 1,000 mcg PO DAILY 10/29/17 [History ] Hyoscyamine SL [Levsin Sl] 0.125 mg SL Q4H PRN 10/29/17 [History] Meclizine [Antivert] 25 mg PO DAILY PRN 10/29/17 [History] Oxygen 1 each .ROUTE AD 10/29/17 [History] Albuterol Neb [Proventil Neb] 2.5 mg IH Q2H PRN inhsol 11/07/17 [Rx] Menthol [Cough Drops] 9.1 mg PO Q2H PRN lozenge 11/07/17 [Rx] Nitroglycerin 0.4 mg SL Q5MIN PRN tab.subl 11/07/17 [Rx] Lipase/Protease/Amylase [Micky Ramos 6,000 Units Capsule] 2 each PO ACHS #240 capsule. 11/17/17 [Rx] 3 Allergy/AdvReac Type Severity Reaction Status Date / Time peanut Allergy Hives Verified 11/26/17 10:44 zinc Allergy Hives Verified 11/26/17 10:44 Sulfa (Sulfonamide AdvReac Mild constipatio Verified 11/26/17 10:44 Antibiotics) n All Systems PM: A 10-system review of systems was performed and is negative for pertinent findings except as documented above in the HPI. - Constitutional Constitutional: excessive sweating, weight loss, no chills, no fever(s), no night sweats - EENT Eyes: no change in vision, no discharge, no pain, no photophobia Ears: no ear discharge, no ear pain, no tinnitus Nose, mouth and throat: no dysphagia, no nasal discharge, no neck pain, no sore throat - Cardiovascular Cardiovascular ROS IM: dyspnea on exertion, irregular heart rhythm, no chest pain, no diaphoresis, no dyspnea, no lightheadedness, no palpitations, no syncope - Respiratory Respiratory: cough, no wheezing, no excessive phlegm production - Gastrointestinal Gastrointestinal: abdominal pain (patint pointed above umbilicus and RLQ), diarrhea, loose stools, nausea, vomiting, no hematemesis, no hematochezia, no melena - Genitourinary Genitourinary: no change in urinary stream, no dysuria, no flank pain, no hematuria Menstruation: post hysterectomy - Musculoskeletal Musculoskeletal ROS IM: no numbness, no tingling - Integumentary Integumentary IM: no rash, no unusual bruising - Neurological Neurological ROS: no confusion, no convulsions, no focal weakness, no numbness, no tingling, no tremor(s) - Endocrine Endocrine IM: excessive sweating - Hematologic/Lymphatic Hematologic/Lymphatic: no easy bruising - Constitutional Vitals: Temp Pulse Resp BP Pulse Ox 97.8 F 99 16 113/78 99 11/26/17 10:36 11/26/17 14:23 11/26/17 14:23 11/26/17 14:23 11/26/17 14:23 General appearance: Present: mild distress, A&O X 3 - Head Head exam: Present: atraumatic, normocephalic - Eye Eye exam: Present: PERRL, conjuntiva pink, sclera anicteric Pupils: Present: PERRL - Neck Neck exam general surgery: Present: supple, trachea midline. Absent: lymphadenopathy - Respiratory Respiratory exam: Present: decreased breath sounds. Absent: accessory muscle use, rales, rhonchi, wheezes - Cardiovascular Cardiovascular exam: Present: RRR, +S1, +S2. Absent: diastolic murmur, gallop, rubs, systolic murmur - GI/Abdominal GI/Abdominal exam: Present: hypoactive bowel sounds, soft, tenderness, no peritoneal signs - Extremities Exam Extremities exam: Present: warm, radial pulses palpable and symmetrical. Absent : calf tenderness, cyanotic, pedal edema - Neurological Exam Neurological exam: Present: CN II-XII intact, oriented X3, no focal deficits. Absent: pronater drift, facial droop, speech deficit - Skin Skin exam: Present: dry, intact Internal Med - H&P Results - Labs CBC & Chem 7: 11/26/17 11:07 11/26/17 11:07 - Assessment and plan (1) Small bowel obstruction Current Visit: Yes Status: Acute Assessment and plan: We will continue IV fluids, NG tube will remain in place. Surgery consulted and has seen the patient. Maintain pain control with narcotics. (2) Nausea and vomiting Current Visit: Yes Status: Acute Assessment and plan: Nausea vomiting persist intermittently. Will continue Zofran when necessary IV for control. Patient will remain nothing by mouth and NG tube will remain in place. Qualifiers: Vomiting type: bilious vomiting Qualified Code(s): R11.14 - Bilious vomiting (3) HCAP (healthcare-associated pneumonia) Current Visit: No Status: Acute Assessment and plan: Patient here for recent admission in October for pneumonia. Chest x-ray showed pulmonary opacities. We will begin Levaquin daily IV. We will also consult respiratory, regarding pneumonia and COPD hx. (4) Diabetes mellitus, type 2 Current Visit: No Status: Chronic Assessment and plan: Patient indicated she has history of diabetes mellitus however after a recent weight loss she has not required any diabetic meds. She indicated her blood sugars have been in control. Serum glucose was 136 on admission. Will monitor CBC daily. Qualifiers: Diabetes mellitus ferry terminal agent insulin use: without snf use Diabetes mellitus complication status: with hyperglycemia Qualified Code(s): E11.65 - Type 2 diabetes mellitus with hyperglycemia (5) Hypoxia Current Visit: No Status: Acute Assessment and plan: Patient uses home O2, 4 L. Has history of COPD and recurrent pneumonia. Respiratory consult ordered. We will continue patient's home meds. Will start IV Levaquin. - Time Spent With Patient Total time spent is greater than 50% in coordination of care (as documented) at patient's floor/unit and/or counseling patient: <Meghan Rutledge - Last Filed: 11/26/17 18:39> Date of Encounter: 11/26/17 Internal Medicine - H&P: HPI History of present illness: Ms. Hebert is a 67 year old female All Systems PM: A 10-system review of systems was performed and is negative for pertinent findings except as documented above in the HPI. - Constitutional Vitals: Temp Pulse Resp BP Pulse Ox 98.1 F 111 14 110/66 100 11/26/17 15:18 11/26/17 15:18 11/26/17 15:18 11/26/17 15:18 11/26/17 16:58 Internal Med - H&P Results - Labs CBC & Chem 7: 11/26/17 11:07 11/26/17 11:07 - Attending Attestation I examined this patient and my medical decision-making was reviewed with the Resident Physician. I agree with the documented findings, disposition and treatment plan as described except to the extent set forth below. - Time Spent With Patient Total time spent is greater than 50% in coordination of care (as documented) at patient's floor/unit and/or counseling patient:
[2017-11-26] MEDS ORDERED: Ondansetron 4 MG/2 ML VIAL IVP PRN (15:27)
[2017-11-26] MEDS ORDERED: Levofloxacin 500 MG/100 ML 500 MG/100 ML BAG IVPB ONE (16:00)
[2017-11-26] MEDS: 0.9 % Sodium Chloride 1,000 ML IVC SCH (16:31)
[2017-11-26] MEDS ORDERED: Chloraseptic Spray 177 ML BOTTLE MM PRN (22:32)
[2017-11-27] MEDS: 0.9 % Sodium Chloride 1,000 ML IVC SCH (02:56)
[2017-11-27] MEDS ORDERED: Dextrose Gel 15 GM/37.5 ML TUBE PO PRN ×2 (05:39)
[2017-11-27] MEDS: *HR* Dextrose 50 % in Water (Syg) 50 ML SYRINGE IVP PRN ×2 (05:48→11:41)
--- NOTE | 2017-11-27 06:27 | Electrocardiograph Report ---
[facility] Test Date: 2017-11-26 Pat Name: Aisha Hebert Department: [id number] Room: 3A12 Gender: F Multimedia Authoring Specialist: TMR : 1950 Requested By: Cristobal Morris Order Number: [id number] Reading MD: Robert Kimbrough Measurements Intervals [place] Rate: 91 P: SC: 0 QRS: 5 QRSD: 102 T: 27 QT: 403 QTc: 452 Interpretive Statements ATRIAL FLUTTER/TACHYCARDIA Electronically Signed On 11-27-2017 6:26:05 EDT by Robert Kimbrough
[2017-11-27 07:12] LABS: Basophils % 0.8 %; Eosinophils # 0.5 K/mcL (0.0-0.6); Hematocrit 28.9 % (35.3-44.9); Immature Granulocytes % 0.2 % (0-4); Lymphocytes % 28.9 %; Mean Corpuscular HGB Conc 30.4 g/dL (31.6-35.5); Mean Corpuscular Volume 95.4 fL (83.0-100.0); Mean Platelet Volume 10.6 fL (9.4-12.4); Monocytes # 0.3 K/mcL (0.0-1.3); Monocytes % 6.2 %; Neutrophils # 2.7 K/mcL (1.6-8.9); Platelet Count 168 K/mcL (140-400); Red Blood Count 3.03 M/mcL (3.82-4.97); Segmented Neutrophils % 53.9 %
[2017-11-27 07:26] LABS: Hemoglobin 8.8 g/dL (11.5-15.4); Lymphocytes # 1.5 K/mcL (0.6-4.6)
[2017-11-27 07:32] LABS: Calcium 7.3 mg/dL (8.6-10.3); Potassium 3.3 mEq/L (3.5-5.1)
--- NOTE | 2017-11-27 08:29 | General Surgery Progress Note ---
<Rosalio Alejandro - Last Filed: 11/27/17 13:58> Date of Encounter: 11/27/17 Time of Encounter: 09:04 - Assessment and Plan (1) Small bowel obstruction Current Visit: Yes Status: Acute Patient reports episodes of flatus and diarrhea Decreased abdominal tenderness since presentation and placement of NG tube Normal Bowel Sounds. Plan: NPO, except ice chips may have 1 cup of ice every 6 hours Possible clears tomorrow NG to mayes bag/gravity IV fluid rehydration Supportive care PRN pain medication if needed. avoid opioids if possible PRN antiemetics Serial abdominal exams. continue to monitor NG output. Subjective Patient reports: no new complaints, feels better, voiding w/o difficulty, flatus , bowel movement, afebrile Objective Vital Signs - Last 8 Hours Temp Pulse Resp BP Pulse Ox 11/27/17 07:59 97.8 F 85 18 101/60 100 11/27/17 05:09 97.8 F 77 14 105/63 100 Intake and Output 11/26/17 11/27/17 11/27/17 23:59 07:59 15:59 Intake Total 0 / 0 1112 / 1112 Output Total 800 / 800 600 / 600 Balance -800 / -800 512 / 512 Intake: IV Fluids 1052 / 1052 0.9 % Sodium Chloride 1,000 ML 1000 / 1000 @ 125 mls/hr IVC .Q8H [facility] Rx#: [id number] Cleocin 300 MG In 0.9 % Sodium 52 / 52 Chloride 50 ML @ 50 mls/hr IVPB Q8HR [facility] Rx#:[id number] Oral 0 / 0 60 / 60 Output: Urine 0 / 0 Gastric Tube Lavage Amount 800 / 800 Right Nare 800 / 800 Gastric Drainage 600 / 600 Other: Meal ice chips Stool Size Smear Stool Consistency loose liquid Stool Color Brown # Voids 1 # Urine Diapers 1 # Bowel Movements 2 # Bowel Movement Diapers 1 Weight 55.338 kg Blood Glucose* 75 Patient Weight 11/27/17 23:59 Weight 55.338 kg - General physical appearance well developed, well nourished - Eyes normal ocular movement - ENT normal mucosa - Neck Neck exam: no lymphadectomy - Respiratory normal expansion, normal respiratory effort, clear to auscultation - Cardiovascular Cardiovascular exam: Present: RRR, no murmurs/rubs/gallops. Absent: JVD - Abdomen Abdomen: Present: soft, non tender. Absent: guarding, rebound, rigid - Incision Incision: Present: clean and dry, intact. Absent: erythema - Integumentary no abnormal pigmentation - Neurologic normal coordination, normal sensation - Musculoskeletal normal posture - Psychiatric speech is normal, memory intact - Labs 11/27/17 06:21 11/27/17 06:21 Diabetes panel 11/27/17 Range/Units 06:21 Sodium 146 H (136-145) mEq/L Potassium 3.3 L (3.5-5.1) mEq/L Chloride 110 H (98-107) mEq/L Carbon Dioxide 29 (23-29) mEq/L BUN 32 H (8-23) mg/dL Creatinine 1.40 H (0.60-1.20) mg/dL Glucose 95 (70-105) mg/dL Calcium 7.3 L (8.6-10.3) mg/dL Calcium panel 11/27/17 Range/Units 06:21 Calcium 7.3 L (8.6-10.3) mg/dL Pituitary panel 11/27/17 Range/Units 06:21 Sodium 146 H (136-145) mEq/L Potassium 3.3 L (3.5-5.1) mEq/L Chloride 110 H (98-107) mEq/L Carbon Dioxide 29 (23-29) mEq/L BUN 32 H (8-23) mg/dL Creatinine 1.40 H (0.60-1.20) mg/dL Glucose 95 (70-105) mg/dL Calcium 7.3 L (8.6-10.3) mg/dL Adrenal panel 11/27/17 Range/Units 06:21 Sodium 146 H (136-145) mEq/L Potassium 3.3 L (3.5-5.1) mEq/L Chloride 110 H (98-107) mEq/L Carbon Dioxide 29 (23-29) mEq/L BUN 32 H (8-23) mg/dL Creatinine 1.40 H (0.60-1.20) mg/dL Glucose 95 (70-105) mg/dL Calcium 7.3 L (8.6-10.3) mg/dL Consult Discharge Plan - Plan Referrals: Sloane Murphy DO [Primary Care Provider] - <Nadeem Chauhan - Last Filed: 11/28/17 08:09> Date of Encounter: 11/27/17 Objective Vital Signs - Last 8 Hours Temp Pulse Resp BP Pulse Ox 11/27/17 07:59 97.8 F 85 18 101/60 100 11/27/17 05:09 97.8 F 77 14 105/63 100 Intake and Output 11/26/17 11/27/17 11/27/17 23:59 07:59 15:59 Intake Total 0 / 0 1112 / 1112 Output Total 800 / 800 600 / 600 Balance -800 / -800 512 / 512 Intake: IV Fluids 1052 / 1052 0.9 % Sodium Chloride 1,000 ML 1000 / 1000 @ 125 mls/hr IVC .Q8H [facility] Rx#: [id number] Cleocin 300 MG In 0.9 % Sodium 52 / 52 Chloride 50 ML @ 50 mls/hr IVPB Q8HR [facility] Rx#:[id number] Oral 0 / 0 60 / 60 Output: Urine 0 / 0 Gastric Tube Lavage Amount 800 / 800 Right Nare 800 / 800 Gastric Drainage 600 / 600 Other: Meal ice chips Stool Size Smear Stool Consistency loose liquid Stool Color Brown # Voids 1 # Urine Diapers 1 # Bowel Movements 2 # Bowel Movement Diapers 1 Weight 55.338 kg Blood Glucose* 75 Patient Weight 11/27/17 23:59 Weight 55.338 kg - Labs 11/28/17 01:28 11/28/17 01:28 Diabetes panel 11/27/17 Range/Units 06:21 Sodium 146 H (136-145) mEq/L Potassium 3.3 L (3.5-5.1) mEq/L Chloride 110 H (98-107) mEq/L Carbon Dioxide 29 (23-29) mEq/L BUN 32 H (8-23) mg/dL Creatinine 1.40 H (0.60-1.20) mg/dL Glucose 95 (70-105) mg/dL Calcium 7.3 L (8.6-10.3) mg/dL Calcium panel 11/27/17 Range/Units 06:21 Calcium 7.3 L (8.6-10.3) mg/dL Pituitary panel 11/27/17 Range/Units 06:21 Sodium 146 H (136-145) mEq/L Potassium 3.3 L (3.5-5.1) mEq/L Chloride 110 H (98-107) mEq/L Carbon Dioxide 29 (23-29) mEq/L BUN 32 H (8-23) mg/dL Creatinine 1.40 H (0.60-1.20) mg/dL Glucose 95 (70-105) mg/dL Calcium 7.3 L (8.6-10.3) mg/dL Adrenal panel 11/27/17 Range/Units 06:21 Sodium 146 H (136-145) mEq/L Potassium 3.3 L (3.5-5.1) mEq/L Chloride 110 H (98-107) mEq/L Carbon Dioxide 29 (23-29) mEq/L BUN 32 H (8-23) mg/dL Creatinine 1.40 H (0.60-1.20) mg/dL Glucose 95 (70-105) mg/dL Calcium 7.3 L (8.6-10.3) mg/dL - Attending Attestation I examined this patient and my medical decision-making was reviewed with the Resident Physician. I agree with the documented findings, disposition and treatment plan as described except to the extent set forth below. Reviewed the above assessment and evaluation and agree with the above plan. Patient had symptoms of abdominal pain with some nausea and vomiting for the past 3-4 days. She has been also having flatus and passing bowel movements that she normally has a bowel movement 1-2 times per day. Last bowel movement was today and was normal. She is continuing to pass flatus. On examination she has some positive bowel sounds and her abdomen is somewhat soft but mildly tender. Her pain is better now than it was prior to her presentation. I agree with NG tube decompression and serial abdominal exams. We will follow NG tube output. We will continue to follow with you.
--- NOTE | 2017-11-27 12:23 | Internal Med Progress Note ---
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 Diabetes mellitus complication status: with hyperglycemia Qualified Code(s): E11.65 - Type 2 diabetes mellitus with hyperglycemia (2) Dyslipidemia Current Visit: No Status: Chronic Assessment and plan: Chronic continue home medication (3) HTN (hypertension) Current Visit: No Status: Chronic Assessment and plan: Chronic and well controlled Qualifiers: Hypertension type: essential hypertension Qualified Code(s): I10 - Essential (primary) hypertension (4) Small bowel obstruction Current Visit: Yes Status: Acute Assessment and plan: Patient being followed by general surgery and GI tube in place (5) Nausea and vomiting Current Visit: Yes Status: Acute Assessment and plan: Resolving Qualifiers: Vomiting type: bilious vomiting Qualified Code(s): R11.14 - Bilious vomiting - Time Spent With Patient Total time spent is greater than 50% in coordination of care (as documented) at patient's floor/unit and/or counseling patient: - Subjective Interval history: Patient with history of atrial fibrillation, diabetes, COPD, CAD, high cholesterol and hypertension patient was admitted with small bowel obstruction and NG tube is in place and general surgery to follow him this moment patient blood glucose was 70 given half of D50 and IV fluids changed to D5 half-normal saline at 100 - Constitutional Vitals: Temp Pulse Resp BP Pulse Ox 97.9 F 81 16 104/64 100 11/27/17 11:04 11/27/17 11:04 11/27/17 11:04 11/27/17 11:04 11/27/17 11:04 General appearance: Present: mild distress, A&O X 3 - Eye Eye exam: Present: PERRL, conjuntiva pink, sclera anicteric Pupils: Present: PERRL - Neck Neck exam general surgery: Present: supple, trachea midline. Absent: lymphadenopathy - Respiratory Respiratory exam: Present: CTAB. Absent: accessory muscle use, rales, rhonchi, wheezes - Cardiovascular Cardiovascular exam: Present: RRR, +S1, +S2. Absent: diastolic murmur, gallop, rubs, systolic murmur - GI/Abdominal GI/Abdominal exam: Present: soft - Extremities Exam Extremities exam: Present: warm, radial pulses palpable and symmetrical. Absent : calf tenderness, cyanotic, pedal edema Internal Medicine: Result - Labs CBC & Chem 7: 11/27/17 06:21 11/27/17 06:21 Labs: Short CBC 11/27/17 Range/Units 06:21 WBC 5.0 D (4.3-11.1) K/mcL Hgb 8.8 L D (11.5-15.4) g/dL Hct 28.9 L (35.3-44.9) % Plt Count 168 (140-400) K/mcL Neutrophils # 2.7 (1.6-8.9) K/mcL BMP 11/27/17 06:21 Sodium 146 H Potassium 3.3 L Chloride 110 H Carbon Dioxide 29 BUN 32 H Creatinine 1.40 H Glucose 95 Calcium 7.3 L - ABG Interpretation ABG results: PT/INR, D-dimer PT 12.4 Seconds (9.4-12.1) H 11/26/17 11:09 Consult Discharge Plan - Plan Referrals: Sloane Murphy DO [Primary Care Provider] -
[2017-11-27] MEDS: D5% in Water 1,000 ML IVC PRN ×2 (13:13→23:28)
[2017-11-27] MEDS ORDERED: Levofloxacin 250 MG/50 ML 250 MG/50 ML BAG IVPB SCH (16:00)
[2017-11-28 02:31] LABS: Basophils % 0.6 %; Eosinophils # 0.6 K/mcL (0.0-0.6); Eosinophils % 8.3 %; Hematocrit 28.3 % (35.3-44.9); Hemoglobin 8.7 g/dL (11.5-15.4); Immature Granulocytes % 0.3 % (0-4); Lymphocytes # 1.7 K/mcL (0.6-4.6); Lymphocytes % 25.6 %; Mean Corpuscular HGB Conc 30.7 g/dL (31.6-35.5); Mean Corpuscular Hemoglobin 29.3 pg (28.0-33.3); Mean Corpuscular Volume 95.3 fL (83.0-100.0); Mean Platelet Volume 10.5 fL (9.4-12.4); Monocytes # 0.4 K/mcL (0.0-1.3); Monocytes % 5.8 %; Platelet Count 186 K/mcL (140-400); Red Blood Count 2.97 M/mcL (3.82-4.97); Red Cell Distribution Width 15.8 % (11.5-14.5); Segmented Neutrophils % 59.4 %
[2017-11-28 02:41] LABS: Calcium 7.5 mg/dL (8.6-10.3)
--- NOTE | 2017-11-28 12:28 | General Surgery Progress Note ---
<Rosalio Alejandro - Last Filed: 11/28/17 12:31> Date of Encounter: 11/28/17 Time of Encounter: 08:20 - Assessment and Plan (1) Small bowel obstruction Current Visit: Yes Status: Acute Patient continues to have flatus, no bloating, last BM was small 2 days ago Has no abdominal tenderness today Normal Bowel Sounds Plan: Trial of clear liquid diet today (500cc limit) Trial clamping NG tube Continuing IV fluids Supportive care PRN pain medication if needed. avoid opioids if possible PRN antiemetics Serial abdominal exams Subjective Narrative: Ms. Hebert reports pain has improved greatly, she denies fevers, chest discomfort, shortness of breath. She has not had a bowel movement yesterday ( diarrhea 2 days ago), but continues to have flatus and no bloating sensation or pain when she moves. Objective Vital Signs - Last 8 Hours Temp Pulse Resp BP Pulse Ox 11/28/17 10:19 98.3 F 76 16 95/58 98 11/28/17 06:18 98.3 F 90 16 124/82 98 Intake and Output 11/27/17 11/28/17 11/28/17 23:59 07:59 15:59 Intake Total 1120 / 1120 52 / 52 1000 / 1000 Output Total 500 / 500 250 / 250 100 / 100 Balance 620 / 620 -198 / -198 900 / 900 Intake: IV Fluids 1000 / 1000 52 / 52 1000 / 1000 Dextrose 5% 1,000 ML @ 100 mls/ 1000 / 1000 1000 / 1000 hr IVC .Q10H PRN Rx#:[id number] Cleocin 300 MG In 0.9 % Sodium 52 / 52 Chloride 50 ML @ 50 mls/hr IVPB Q8H [facility] Rx#:[id number] Oral 120 / 120 0 / 0 Output: Urine 100 / 100 0 / 0 100 / 100 Gastric Drainage 400 / 400 Wound Drainage 250 / 250 NG R nare 250 / 250 Other: Meal NPO # Voids 1 Blood Glucose* 82 76 78 - General physical appearance well developed, well nourished, no distress - Eyes normal ocular movement - ENT normal nares, normal mucosa, Other (presence of NG tube) - Neck Neck exam: no lymphadectomy - Respiratory normal expansion, normal respiratory effort, clear to auscultation - Cardiovascular Cardiovascular exam: Present: RRR, no murmurs/rubs/gallops. Absent: JVD - Abdomen Abdomen: Present: bowel sounds present, soft, non tender. Absent: guarding, rebound, rigid - Integumentary no abnormal pigmentation - Neurologic normal coordination, normal sensation - Musculoskeletal normal posture - Psychiatric speech is normal, memory intact - Labs 11/28/17 01:28 11/28/17 01:28 Diabetes panel 11/28/17 Range/Units 01:28 Sodium 143 (136-145) mEq/L Potassium 3.0 L (3.5-5.1) mEq/L Chloride 105 (98-107) mEq/L Carbon Dioxide 33 H (23-29) mEq/L BUN 23 (8-23) mg/dL Creatinine 1.18 (0.60-1.20) mg/dL Glucose 83 (70-105) mg/dL Calcium 7.5 L (8.6-10.3) mg/dL Calcium panel 11/28/17 Range/Units 01:28 Calcium 7.5 L (8.6-10.3) mg/dL Pituitary panel 11/28/17 Range/Units 01:28 Sodium 143 (136-145) mEq/L Potassium 3.0 L (3.5-5.1) mEq/L Chloride 105 (98-107) mEq/L Carbon Dioxide 33 H (23-29) mEq/L BUN 23 (8-23) mg/dL Creatinine 1.18 (0.60-1.20) mg/dL Glucose 83 (70-105) mg/dL Calcium 7.5 L (8.6-10.3) mg/dL Adrenal panel 11/28/17 Range/Units 01:28 Sodium 143 (136-145) mEq/L Potassium 3.0 L (3.5-5.1) mEq/L Chloride 105 (98-107) mEq/L Carbon Dioxide 33 H (23-29) mEq/L BUN 23 (8-23) mg/dL Creatinine 1.18 (0.60-1.20) mg/dL Glucose 83 (70-105) mg/dL Calcium 7.5 L (8.6-10.3) mg/dL Consult Discharge Plan - Plan Referrals: Sloane Murphy DO [Primary Care Provider] - <Nadeem Chauhan - Last Filed: 11/30/17 07:33> Date of Encounter: 11/28/17 Objective Vital Signs - Last 8 Hours Temp Pulse Resp BP Pulse Ox 11/30/17 06:42 97.9 F 121 16 127/87 98 11/30/17 03:00 98.6 F 118 15 100/69 98 Intake and Output 11/29/17 11/29/17 11/30/17 15:59 23:59 07:59 Intake Total 1370 / 1370 600 / 600 0 / 0 Output Total 100 / 100 0 / 0 Balance 1270 / 1270 600 / 600 0 / 0 Intake: IV Fluids 50 / 50 Magnesium Sulfate Premix 2gm/ 50 / 50 50mL 2 gm In 50 ml @ 50 mls/hr IVPB ONCE ONE Rx#:[id number] Oral 1320 / 1320 600 / 600 0 / 0 Output: Urine 100 / 100 0 / 0 Other: Meal Full Dinner Percent of Meal Consumed 100% 100% Stool Size Large Stool Consistency liquid Stool Characteristics Normal for Patient Stool Color Brown # Bowel Movements 0 1 # Bowel Movement Diapers 1 Weight 60.2 kg Patient Weight 11/30/17 23:59 Weight 60.2 kg - Labs 11/30/17 05:45 11/30/17 05:45 Diabetes panel 11/30/17 Range/Units 05:45 Sodium 139 (136-145) mEq/L Potassium 5.4 H (3.5-5.1) mEq/L Chloride 100 (98-107) mEq/L Carbon Dioxide 37 H (23-29) mEq/L BUN 15 (8-23) mg/dL Creatinine 1.16 (0.60-1.20) mg/dL Glucose 113 H (70-105) mg/dL Calcium 8.8 (8.6-10.3) mg/dL Calcium panel 11/30/17 Range/Units 05:45 Calcium 8.8 (8.6-10.3) mg/dL Pituitary panel 11/30/17 Range/Units 05:45 Sodium 139 (136-145) mEq/L Potassium 5.4 H (3.5-5.1) mEq/L Chloride 100 (98-107) mEq/L Carbon Dioxide 37 H (23-29) mEq/L BUN 15 (8-23) mg/dL Creatinine 1.16 (0.60-1.20) mg/dL Glucose 113 H (70-105) mg/dL Calcium 8.8 (8.6-10.3) mg/dL Adrenal panel 11/30/17 Range/Units 05:45 Sodium 139 (136-145) mEq/L Potassium 5.4 H (3.5-5.1) mEq/L Chloride 100 (98-107) mEq/L Carbon Dioxide 37 H (23-29) mEq/L BUN 15 (8-23) mg/dL Creatinine 1.16 (0.60-1.20) mg/dL Glucose 113 H (70-105) mg/dL Calcium 8.8 (8.6-10.3) mg/dL - Attending Attestation I examined this patient and my medical decision-making was reviewed with the Resident Physician. I agree with the documented findings, disposition and treatment plan as described except to the extent set forth below. I reviewed the above assessment and evaluation and agree with the above plan. Will remove NGT and start clears. NO abdominal pain on examination. Overall the patient is improving.
--- NOTE | 2017-11-28 13:08 | Internal Med Progress Note ---
Date of Encounter: 11/28/17 Time of Encounter: 12:50 - Assessment and plan (1) Small bowel obstruction Current Visit: Yes Status: Acute Assessment and plan: Currently starting clear liquids per surgery. NG still in place. Further plan per surgery service (2) Hypokalemia Current Visit: Yes Status: Acute Assessment and plan: Replete (3) CKD (chronic kidney disease) stage 3, GFR 30-59 ml/min Current Visit: No Status: Chronic Assessment and plan: Avoid nephrotoxins as able. (4) Diabetes mellitus, type 2 Current Visit: No Status: Chronic Assessment and plan: Monitoring blood sugars and covering. 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 Qualifiers: Hypertension type: essential hypertension Qualified Code(s): I10 - Essential (primary) hypertension (6) PAF (paroxysmal atrial fibrillation) Current Visit: No Status: Chronic Assessment and plan: Chronic issue (7) LUIS on CPAP Current Visit: No Status: Chronic Assessment and plan: Chronic issue (8) Chronic respiratory failure with hypoxia Current Visit: Yes Status: Chronic - Time Spent With Patient Total time spent is greater than 50% in coordination of care (as documented) at patient's floor/unit and/or counseling patient: - Subjective Interval history: Ms Hebert is currently admitted for acute SBO. She is slowly improving but still has NG. She remains moderate to high risk due to potential for worsenign clinical status. Ms Hebert is tolerating some ice chips. No fever. No nausea at this time. No CP or SOB. Having some bowel movements. - Constitutional Vitals: Temp Pulse Resp BP Pulse Ox 98.3 F 76 16 95/58 98 11/28/17 10:19 11/28/17 10:19 11/28/17 10:19 11/28/17 10:19 11/28/17 10:19 General appearance: Present: A&O X 3, answers questions appropriately - Head Head exam: Present: normocephalic - Eye Eye exam: Present: conjuntiva pink - ENT ENT exam: Present: mucous membranes dry Additional comments: NG in nose - Respiratory Respiratory exam: Present: decreased breath sounds, CTAB. Absent: rales, rhonchi, wheezes - Cardiovascular Cardiovascular exam: Present: RRR. Absent: tachycardia - GI/Abdominal GI/Abdominal exam: Present: hypoactive bowel sounds, soft - Extremities Exam Extremities exam: Present: warm. Absent: tenderness - Neurological Exam Neurological exam: Present: alert, oriented X3 - Skin Skin exam: Present: dry, warm Internal Medicine: Result - Labs CBC & Chem 7: 11/28/17 01:28 11/28/17 01:28 Labs: Short CBC 11/28/17 Range/Units 01:28 WBC 6.8 (4.3-11.1) K/mcL Hgb 8.7 L (11.5-15.4) g/dL Hct 28.3 L (35.3-44.9) % Plt Count 186 (140-400) K/mcL Neutrophils # 4.0 (1.6-8.9) K/mcL BMP 11/28/17 01:28 Sodium 143 Potassium 3.0 L Chloride 105 Carbon Dioxide 33 H BUN 23 Creatinine 1.18 Glucose 83 Calcium 7.5 L - ABG Interpretation ABG results: PT/INR, D-dimer PT 12.4 Seconds (9.4-12.1) H 11/26/17 11:09 Consult Discharge Plan - Plan Referrals: Sloane Murphy DO [Primary Care Provider] -
[2017-11-28] MEDS ORDERED: Potassium Chloride 40 MEQ, Lidocaine 1% 2 ML in D5% in Water 500 ML IVPB ONE (17:14)
[2017-11-29 05:07] LABS: Basophils % 0.5 %; Eosinophils # 0.5 K/mcL (0.0-0.6); Eosinophils % 6.2 %; Hematocrit 31.9 % (35.3-44.9); Hemoglobin 9.8 g/dL (11.5-15.4); Immature Granulocytes % 0.3 % (0-4); Lymphocytes # 2.2 K/mcL (0.6-4.6); Lymphocytes % 29.5 %; Mean Corpuscular HGB Conc 30.7 g/dL (31.6-35.5); Mean Corpuscular Hemoglobin 29.1 pg (28.0-33.3); Mean Corpuscular Volume 94.7 fL (83.0-100.0); Mean Platelet Volume 10.6 fL (9.4-12.4); Monocytes # 0.4 K/mcL (0.0-1.3); Monocytes % 5.3 %; Neutrophils # 4.4 K/mcL (1.6-8.9); Platelet Count 209 K/mcL (140-400); Red Blood Count 3.37 M/mcL (3.82-4.97); Red Cell Distribution Width 15.9 % (11.5-14.5); Segmented Neutrophils % 58.2 %
[2017-11-29 05:23] LABS: Calcium 7.8 mg/dL (8.6-10.3); Potassium 4.6 mEq/L (3.5-5.1)
--- NOTE | 2017-11-29 07:41 | General Surgery Progress Note ---
<oJse Francisco Zhang - Last Filed: 11/30/17 06:49> Date of Encounter: 11/30/17 Time of Encounter: 07:38 - Assessment and Plan (1) Small bowel obstruction Current Visit: Yes Status: Acute Plentiful flatus, no BM x3 days. Benign abdominal exam. Tolerated clear liquids yesterday without difficulty. Plan: - remove NG tube - advanced full liquid diet as tolerated - continue IVF for now - PRN pain meds as needed; continue to vote opioids. - Antiemetics as needed Subjective Patient reports: no new complaints, feels better, tolerating liquids well, voiding w/o difficulty, flatus, no bowel movement, afebrile Narrative: Tolerated clear liquids with no pain. NG tube clamped. Voiding without difficulty. Passing plentiful flatus; still no BM. Pain minimal overall. Inquires on advancement of diet. Denies nausea, vomiting, fevers, chills, or sweats. Objective Vital Signs - Last 8 Hours Temp Pulse Resp BP Pulse Ox 11/29/17 06:31 97.0 F L 78 14 105/72 98 11/29/17 03:25 98.4 F 95 14 115/80 92 Intake and Output 11/28/17 11/28/17 11/29/17 15:59 23:59 07:59 Intake Total 1720 / 1720 870 / 870 120 / 120 Output Total 100 / 100 50 / 50 0 / 0 Balance 1620 / 1620 820 / 820 120 / 120 Intake: IV Fluids 1000 / 1000 Dextrose 5% 1,000 ML @ 100 mls/ 1000 / 1000 hr IVC .Q10H PRN Rx#:[id number] Oral 720 / 720 870 / 870 120 / 120 Output: Urine 100 / 100 50 / 50 0 / 0 Other: Meal Lunch Percent of Meal Consumed 0% # Voids 1 # Bowel Movements 0 Weight 55.293 kg Blood Glucose* 82 Patient Weight 11/29/17 23:59 Weight 55.293 kg - General physical appearance well developed, well nourished, no distress - Eyes PERRL - ENT normal nares (NG tube in place and clamped) - Neck Neck exam: no venous distension - Respiratory clear to auscultation - Cardiovascular Cardiovascular exam: Present: RRR (s), no murmurs/rubs/gallops - Abdomen Abdomen: Present: bowel sounds present, soft, non tender. Absent: distended, guarding, rebound, rigid - Integumentary no abnormal pigmentation - Psychiatric oriented to time, oriented to person, oriented to place, speech is normal - Labs 11/30/17 05:45 11/30/17 05:45 Diabetes panel 11/29/17 Range/Units 04:01 Sodium 140 (136-145) mEq/L Potassium 4.6 (3.5-5.1) mEq/L Chloride 104 (98-107) mEq/L Carbon Dioxide 31 H (23-29) mEq/L BUN 14 (8-23) mg/dL Creatinine 1.15 (0.60-1.20) mg/dL Glucose 70 (70-105) mg/dL Calcium 7.8 L (8.6-10.3) mg/dL Calcium panel 11/29/17 Range/Units 04:01 Calcium 7.8 L (8.6-10.3) mg/dL Pituitary panel 11/29/17 Range/Units 04:01 Sodium 140 (136-145) mEq/L Potassium 4.6 (3.5-5.1) mEq/L Chloride 104 (98-107) mEq/L Carbon Dioxide 31 H (23-29) mEq/L BUN 14 (8-23) mg/dL Creatinine 1.15 (0.60-1.20) mg/dL Glucose 70 (70-105) mg/dL Calcium 7.8 L (8.6-10.3) mg/dL Adrenal panel 11/29/17 Range/Units 04:01 Sodium 140 (136-145) mEq/L Potassium 4.6 (3.5-5.1) mEq/L Chloride 104 (98-107) mEq/L Carbon Dioxide 31 H (23-29) mEq/L BUN 14 (8-23) mg/dL Creatinine 1.15 (0.60-1.20) mg/dL Glucose 70 (70-105) mg/dL Calcium 7.8 L (8.6-10.3) mg/dL Consult Discharge Plan - Plan Referrals: Sloane Murphy DO [Primary Care Provider] - <Nadeem Chauhan - Last Filed: 11/30/17 07:34> Date of Encounter: 11/29/17 Objective Vital Signs - Last 8 Hours Temp Pulse Resp BP Pulse Ox 11/30/17 06:42 97.9 F 121 16 127/87 98 11/30/17 03:00 98.6 F 118 15 100/69 98 Intake and Output 11/29/17 11/29/17 11/30/17 15:59 23:59 07:59 Intake Total 1370 / 1370 600 / 600 0 / 0 Output Total 100 / 100 0 / 0 Balance 1270 / 1270 600 / 600 0 / 0 Intake: IV Fluids 50 / 50 Magnesium Sulfate Premix 2gm/ 50 / 50 50mL 2 gm In 50 ml @ 50 mls/hr IVPB ONCE ONE Rx#:[id number] Oral 1320 / 1320 600 / 600 0 / 0 Output: Urine 100 / 100 0 / 0 Other: Meal Full Dinner Percent of Meal Consumed 100% 100% Stool Size Large Stool Consistency liquid Stool Characteristics Normal for Patient Stool Color Brown # Bowel Movements 0 1 # Bowel Movement Diapers 1 Weight 60.2 kg Patient Weight 11/30/17 23:59 Weight 60.2 kg - Labs 11/30/17 05:45 11/30/17 05:45 Diabetes panel 11/30/17 Range/Units 05:45 Sodium 139 (136-145) mEq/L Potassium 5.4 H (3.5-5.1) mEq/L Chloride 100 (98-107) mEq/L Carbon Dioxide 37 H (23-29) mEq/L BUN 15 (8-23) mg/dL Creatinine 1.16 (0.60-1.20) mg/dL Glucose 113 H (70-105) mg/dL Calcium 8.8 (8.6-10.3) mg/dL Calcium panel 11/30/17 Range/Units 05:45 Calcium 8.8 (8.6-10.3) mg/dL Pituitary panel 11/30/17 Range/Units 05:45 Sodium 139 (136-145) mEq/L Potassium 5.4 H (3.5-5.1) mEq/L Chloride 100 (98-107) mEq/L Carbon Dioxide 37 H (23-29) mEq/L BUN 15 (8-23) mg/dL Creatinine 1.16 (0.60-1.20) mg/dL Glucose 113 H (70-105) mg/dL Calcium 8.8 (8.6-10.3) mg/dL Adrenal panel 11/30/17 Range/Units 05:45 Sodium 139 (136-145) mEq/L Potassium 5.4 H (3.5-5.1) mEq/L Chloride 100 (98-107) mEq/L Carbon Dioxide 37 H (23-29) mEq/L BUN 15 (8-23) mg/dL Creatinine 1.16 (0.60-1.20) mg/dL Glucose 113 H (70-105) mg/dL Calcium 8.8 (8.6-10.3) mg/dL - Attending Attestation I examined this patient and my medical decision-making was reviewed with the Resident Physician. I agree with the documented findings, disposition and treatment plan as described except to the extent set forth below. Noted continued improvement. No nausea and tolerating clears. No pain on exam. AGree with advancement to full liquids and can advance as tolerated to soft foods.
[2017-11-29] MEDS ORDERED: Baclofen 10 MG TABLET PO PRN (09:42)
[2017-11-29] MEDS ORDERED: Nitroglycerin 0.4 MG TAB.SUBL SL PRN (09:42)
[2017-11-29] MEDS ORDERED: Menthol 9.1 MG LOZENGE PO PRN (09:42)
[2017-11-29] MEDS ORDERED: Albuterol 2.5 MG/3 ML NEBULIZER IH PRN (09:42)
[2017-11-29] MEDS ORDERED: NON-FORMULARY MEDICATION 1 EACH EACH (Oxygen [Oxygen] 2 L) SCH (09:45)
[2017-11-29] MEDS: Beclomethasone 80mcg MDI IH SCH ×2 (10:02→20:51)
[2017-11-29] MEDS: *HR* Amiodarone 200 MG TABLET PO SCH (10:30)
[2017-11-29] MEDS: Aspirin 81 MG TAB.CHEW PO SCH (10:30)
[2017-11-29] MEDS: Benzonatate 100 MG CAPSULE PO PRN ×3 (10:31→20:00)
[2017-11-29] MEDS: BuPROPion XL (24 HR) 150 MG TABLET PO SCH (10:31)
--- NOTE | 2017-11-29 14:29 | Internal Med Progress Note ---
Date of Encounter: 11/29/17 Time of Encounter: 14:15 - Assessment and plan (1) PAF (paroxysmal atrial fibrillation) Current Visit: No Status: Chronic Assessment and plan: Has been in rapid atrial fib today. PRN Lopressor ordered as well as short acting Cardizem. Amiodarone restarted. No anticoagulation due to prior hx of alveolar hemorrhage. (2) Small bowel obstruction Current Visit: Yes Status: Acute Assessment and plan: NG out today. Diet per surgery. Overall progressing well. (3) HCAP (healthcare-associated pneumonia) Current Visit: No Status: Ruled-out (4) Hypomagnesemia Current Visit: No Status: Resolved Assessment and plan: Restart PO Magox. IV supplement today as well. (5) Diabetes mellitus, type 2 Current Visit: No Status: Chronic Assessment and plan: Monitoring blood sugars and covering. Qualifiers: Diabetes mellitus penitentiary insulin use: without buttermaker continuous churn use Diabetes mellitus complication status: without complication Qualified Code(s): E11.9 - Type 2 diabetes mellitus without complications (6) HTN (hypertension) Current Visit: No Status: Chronic Assessment and plan: Monitoring blood pressure. Qualifiers: Hypertension type: essential hypertension Qualified Code(s): I10 - Essential (primary) hypertension (7) CKD (chronic kidney disease) stage 3, GFR 30-59 ml/min Current Visit: No Status: Chronic Assessment and plan: Avoid nephrotoxins as able. (8) Chronic respiratory failure with hypoxia Current Visit: Yes Status: Chronic (9) Chronic diastolic heart failure Current Visit: Yes Status: Chronic Assessment and plan: No acute issues. (10) DVT prophylaxis Current Visit: Yes Status: Acute Assessment and plan: SCDs. 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 - Time Spent With Patient Total time spent is greater than 50% in coordination of care (as documented) at patient's floor/unit and/or counseling patient: - Subjective Interval history: Ms Hebert is currently admitted for acute SBO. She is slowly improving but still has NG. She remains moderate to high risk due to potential for worsenign clinical status. Ms Hebert feels "better than she has in 7 months." She has had some rapid a fib today but BP has been borderline low. Amiodarone restarted today. PO Cardizem given for rate at this time. No CP or worsening dyspnea. No diarrhea at this time. - Constitutional Vitals: Temp Pulse Resp BP Pulse Ox 98.7 F 85 16 104/68 96 11/29/17 14:06 11/29/17 14:06 11/29/17 14:06 11/29/17 14:06 11/29/17 14:06 General appearance: Present: A&O X 3, answers questions appropriately - Head Head exam: Present: normocephalic - Eye Eye exam: Present: conjuntiva pink - ENT ENT exam: Present: mucous membranes dry - Respiratory Respiratory exam: Present: CTAB. Absent: rales, rhonchi, wheezes - Cardiovascular Cardiovascular exam: Present: irregular rhythm, tachycardia - GI/Abdominal GI/Abdominal exam: Present: hypoactive bowel sounds, soft - Extremities Exam Extremities exam: Present: warm. Absent: tenderness - Neurological Exam Neurological exam: Present: alert, oriented X3, no focal deficits - Skin Skin exam: Present: dry, warm Internal Medicine: Result - Labs CBC & Chem 7: 11/29/17 04:01 11/29/17 04:01 Labs: Short CBC 11/29/17 Range/Units 04:01 WBC 7.6 (4.3-11.1) K/mcL Hgb 9.8 L (11.5-15.4) g/dL Hct 31.9 L (35.3-44.9) % Plt Count 209 (140-400) K/mcL Neutrophils # 4.4 (1.6-8.9) K/mcL BMP 11/29/17 04:01 Sodium 140 Potassium 4.6 Chloride 104 Carbon Dioxide 31 H BUN 14 Creatinine 1.15 Glucose 70 Calcium 7.8 L - ABG Interpretation ABG results: PT/INR, D-dimer PT 12.4 Seconds (9.4-12.1) H 11/26/17 11:09 Consult Discharge Plan - Plan Referrals: Sloane Murphy DO [Primary Care Provider] -
[2017-11-29] MEDS: Magnesium Oxide 400 MG TABLET PO SCH ×2 (15:13→21:34)
[2017-11-29] MEDS ORDERED: Ondansetron 4 MG/2 ML VIAL IVP ONE (23:53)
[2017-11-30] MEDS ORDERED: Ondansetron 4 MG/2 ML VIAL IVP SCH (04:00)
[2017-11-30] MEDS: Ondansetron 4 MG/2 ML VIAL IVP PRN ×3 (05:22→15:32)
[2017-11-30 06:19] LABS: Hematocrit 36.9 % (35.3-44.9); Hemoglobin 11.3 g/dL (11.5-15.4); Mean Corpuscular HGB Conc 30.6 g/dL (31.6-35.5); Mean Corpuscular Volume 94.6 fL (83.0-100.0); Mean Platelet Volume 10.4 fL (9.4-12.4); Platelet Count 239 K/mcL (140-400); Red Cell Distribution Width 15.9 % (11.5-14.5)
[2017-11-30] MEDS ORDERED: *HR* Promethazine 25 MG/ML VIAL IVP ONE (06:23)
[2017-11-30 06:31] LABS: Calcium 8.8 mg/dL (8.6-10.3); Magnesium 1.6 mg/dL (1.6-2.6); Potassium 5.4 mEq/L (3.5-5.1)
--- NOTE | 2017-11-30 07:36 | General Surgery Progress Note ---
<Jose Francisco Zhang - Last Filed: 11/30/17 17:21> Date of Encounter: 11/30/17 Time of Encounter: 07:29 - Assessment and Plan (1) Small bowel obstruction Current Visit: Yes Status: Acute Has recurrent nausea, vomiting, and bloating abdominal discomfort. Overall benign abdominal exam. Tolerated full liquids early in the day developing symptoms near midnight. Plan: - replaced NG tube into the left nostril and reinstated NPO diet for now - plan is for exploratory celiotomy 12/01/17 - continue IVF - PRN pain meds as needed; continue to avoid opioids. - Antiemetics as needed Subjective Narrative: Patient states tolerated full liquid diet yesterday through lunch and dinner. Patient however complains of worsening symptoms around midnight including nausea , vomiting x4 ("just stomach acid"), and diarrhea. Patient states she still has bloating abdominal discomfort this morning and is highly disinclined to eat. Objective Vital Signs - Last 8 Hours Temp Pulse Resp BP Pulse Ox 11/30/17 06:42 97.9 F 121 16 127/87 98 11/30/17 03:00 98.6 F 118 15 100/69 98 Intake and Output 11/29/17 11/29/17 11/30/17 15:59 23:59 07:59 Intake Total 1370 / 1370 600 / 600 0 / 0 Output Total 100 / 100 0 / 0 Balance 1270 / 1270 600 / 600 0 / 0 Intake: IV Fluids 50 / 50 Magnesium Sulfate Premix 2gm/ 50 / 50 50mL 2 gm In 50 ml @ 50 mls/hr IVPB ONCE ONE Rx#:[id number] Oral 1320 / 1320 600 / 600 0 / 0 Output: Urine 100 / 100 0 / 0 Other: Meal Full Dinner Percent of Meal Consumed 100% 100% Stool Size Large Stool Consistency liquid Stool Characteristics Normal for Patient Stool Color Brown # Bowel Movements 0 1 # Bowel Movement Diapers 1 Weight 60.2 kg Patient Weight 11/30/17 23:59 Weight 60.2 kg VITAL SIGNS: [facility] GENERAL: supine in bed and appears uncomfortable. Conversational and cooperative. HEENT: Normocephalic, PER, EOMi, oropharynx pink/moist, no JVD noted CV: b/l rad pulses 2+, sinus tachycardia (rate 120), no murmurs or gallops, no JVD seen RESPIRATORY: CTAB without wheezes, rales, or rhonchi ABD: soft, diffusely tender, no rebound/guarding/rigidity, no peritoneal signs EXTREMITY: grossly normal motor function, no pedal edema, peripheral pulses 2+ b /l NEUROLOGIC EXAM: AOx3, obeys commands, no speech deficits. PSYCHIATRIC: normal mood and affect SKIN: no gross lesions, rashes, or skin changes - Labs 11/30/17 05:45 11/30/17 05:45 Diabetes panel 11/30/17 Range/Units 05:45 Sodium 139 (136-145) mEq/L Potassium 5.4 H (3.5-5.1) mEq/L Chloride 100 (98-107) mEq/L Carbon Dioxide 37 H (23-29) mEq/L BUN 15 (8-23) mg/dL Creatinine 1.16 (0.60-1.20) mg/dL Glucose 113 H (70-105) mg/dL Calcium 8.8 (8.6-10.3) mg/dL Calcium panel 11/30/17 Range/Units 05:45 Calcium 8.8 (8.6-10.3) mg/dL Pituitary panel 11/30/17 Range/Units 05:45 Sodium 139 (136-145) mEq/L Potassium 5.4 H (3.5-5.1) mEq/L Chloride 100 (98-107) mEq/L Carbon Dioxide 37 H (23-29) mEq/L BUN 15 (8-23) mg/dL Creatinine 1.16 (0.60-1.20) mg/dL Glucose 113 H (70-105) mg/dL Calcium 8.8 (8.6-10.3) mg/dL Adrenal panel 11/30/17 Range/Units 05:45 Sodium 139 (136-145) mEq/L Potassium 5.4 H (3.5-5.1) mEq/L Chloride 100 (98-107) mEq/L Carbon Dioxide 37 H (23-29) mEq/L BUN 15 (8-23) mg/dL Creatinine 1.16 (0.60-1.20) mg/dL Glucose 113 H (70-105) mg/dL Calcium 8.8 (8.6-10.3) mg/dL Consult Discharge Plan - Plan Referrals: Sloane Murphy DO [Primary Care Provider] - <Nadeem Chauhan - Last Filed: 12/01/17 13:40> Date of Encounter: 11/30/17 Objective Vital Signs - Last 8 Hours Temp Pulse Resp BP Pulse Ox 12/01/17 11:49 97.7 F 73 14 101/63 93 12/01/17 09:55 97 12/01/17 07:27 14 98 12/01/17 06:21 97.8 F 95 14 97/56 98 Intake and Output 11/30/17 12/01/17 12/01/17 23:59 07:59 15:59 Intake Total 1000 / 1000 810 / 810 Output Total 400 / 400 175 / 175 Balance 1000 / 1000 410 / 410 -175 / -175 Intake: IV Fluids 1000 / 1000 810 / 810 0.9 % Sodium Chloride 1,000 ML 1000 / 1000 810 / 810 @ 100 mls/hr IVC .Q10H TALA Rx#: [id number] Oral 0 / 0 0 / 0 Output: Gastric Drainage 175 / 175 Wound Drainage 400 / 400 NG R nare 400 / 400 Other: Meal NPO for supper NPO LUNCH Stool Size Large Large Stool Consistency loose loose liquid liquid Stool Characteristics Mucoid Stool Color Brown Brown # Urine Diapers 1 # Bowel Movement Diapers 1 1 Weight 58.377 kg Blood Glucose* 114 85 Patient Weight 12/01/17 23:59 Weight 58.377 kg - Labs 12/01/17 05:02 12/01/17 05:02 Diabetes panel 12/01/17 Range/Units 05:02 Sodium 142 (136-145) mEq/L Potassium 4.8 (3.5-5.1) mEq/L Chloride 105 (98-107) mEq/L Carbon Dioxide 35 H (23-29) mEq/L BUN 14 (8-23) mg/dL Creatinine 1.12 (0.60-1.20) mg/dL Glucose 69 L (70-105) mg/dL Calcium 8.1 L (8.6-10.3) mg/dL Calcium panel 12/01/17 Range/Units 05:02 Calcium 8.1 L (8.6-10.3) mg/dL Pituitary panel 12/01/17 Range/Units 05:02 Sodium 142 (136-145) mEq/L Potassium 4.8 (3.5-5.1) mEq/L Chloride 105 (98-107) mEq/L Carbon Dioxide 35 H (23-29) mEq/L BUN 14 (8-23) mg/dL Creatinine 1.12 (0.60-1.20) mg/dL Glucose 69 L (70-105) mg/dL Calcium 8.1 L (8.6-10.3) mg/dL Adrenal panel 12/01/17 Range/Units 05:02 Sodium 142 (136-145) mEq/L Potassium 4.8 (3.5-5.1) mEq/L Chloride 105 (98-107) mEq/L Carbon Dioxide 35 H (23-29) mEq/L BUN 14 (8-23) mg/dL Creatinine 1.12 (0.60-1.20) mg/dL Glucose 69 L (70-105) mg/dL Calcium 8.1 L (8.6-10.3) mg/dL - Attending Attestation I examined this patient and my medical decision-making was reviewed with the Resident Physician. I agree with the documented findings, disposition and treatment plan as described except to the extent set forth below. I reviewed the above assessment and evaluation and agree with the above plan. Patient nausea vomiting with advancement of diet resulting in replacement of NG tube and immediate drainage of succus and improvement of her of bowel distention. Because she is not resolved we will plan for a exploration and possible lysis of adhesion/small bowel resection tomorrow. Discussed with the patient she agrees with the risk and benefits of the procedure.
[2017-11-30] MEDS: Beclomethasone 80mcg MDI IH SCH ×2 (07:47→20:27)
--- NOTE | 2017-11-30 08:46 | Internal Med Progress Note ---
Date of Encounter: 11/30/17 Time of Encounter: 08:44 - Assessment and plan (1) Small bowel obstruction Current Visit: Yes Status: Acute Assessment and plan: NG out on 11/29 Today complaints of N/V and abdominal fullness. Diet per surgery. (2) PAF (paroxysmal atrial fibrillation) Current Visit: No Status: Chronic Assessment and plan: Has been in rapid atrial fib now constant. PRN Lopressor, short acting Cardizem. Amiodarone restarted. No anticoagulation due to prior hx of alveolar hemorrhage. Today HR running on telemetry around 120s Consult Cardiology for medication adjustment. 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 Recheck and replace as needed. (6) CKD (chronic kidney disease) stage 3, GFR 30-59 ml/min Current Visit: No Status: Chronic Assessment and plan: Avoid nephrotoxins as able. Renal dose medications (7) HTN (hypertension) Current Visit: No Status: Chronic Assessment and plan: Monitoring blood pressure. Qualifiers: Hypertension type: essential hypertension Qualified Code(s): I10 - Essential (primary) hypertension (8) Chronic respiratory failure with hypoxia Current Visit: Yes Status: Chronic Assessment and plan: Currently on room air but does need supplemental O2 throughout the day. (9) Chronic diastolic heart failure Current Visit: Yes Status: Chronic Assessment and plan: No acute issues. (10) DVT prophylaxis Current Visit: Yes Status: Acute Assessment and plan: SCDs. 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 - Time Spent With Patient Total time spent is greater than 50% in coordination of care (as documented) at patient's floor/unit and/or counseling patient: - Subjective Interval history: Patient complained of N/V this AM and diarrhea yesterday (though she does have diarrhea at baseline). She denies feverschills. Complaints of abdominal fullness, states she may have eaten too much today. - Constitutional Vitals: Temp Pulse Resp BP Pulse Ox 98.4 F 122 16 114/83 98 11/30/17 08:43 11/30/17 08:43 11/30/17 08:43 11/30/17 08:43 11/30/17 08:43 General appearance: Present: A&O X 3, answers questions appropriately Exam: - Head Head exam: Present: normocephalic - Eye Eye exam: Present: conjuntiva pink - ENT ENT exam: Present: mucous membranes dry - Respiratory Respiratory exam: Present: CTAB. Absent: rales, rhonchi, wheezes - Cardiovascular Cardiovascular exam: Present: irregular rhythm, tachycardia - GI/Abdominal GI/Abdominal exam: Present: hypoactive bowel sounds, soft - Extremities Exam Extremities exam: Present: warm. Absent: tenderness - Neurological Exam Neurological exam: Present: alert, oriented X3, no focal deficits - Skin Skin exam: Present: dry, warm Internal Medicine: Result - Labs CBC & Chem 7: 11/30/17 05:45 11/30/17 05:45 Labs: Short CBC 11/30/17 Range/Units 05:45 WBC 5.5 (4.3-11.1) K/mcL Hgb 11.3 L D (11.5-15.4) g/dL Hct 36.9 (35.3-44.9) % Plt Count 239 (140-400) K/mcL BMP 11/30/17 05:45 Sodium 139 Potassium 5.4 H Chloride 100 Carbon Dioxide 37 H BUN 15 Creatinine 1.16 Glucose 113 H Calcium 8.8 - ABG Interpretation ABG results: PT/INR, D-dimer PT 12.4 Seconds (9.4-12.1) H 11/26/17 11:09 Consult Discharge Plan - Plan Referrals: Sloane Murphy DO [Primary Care Provider] -
[2017-11-30] MEDS: *HR* Metoprolol 5 MG/5 ML VIAL IVP PRN (09:57)
[2017-11-30] MEDS: Aspirin 81 MG TAB.CHEW PO SCH (10:21)
[2017-11-30] MEDS: *HR* Amiodarone 200 MG TABLET PO SCH (10:21)
[2017-11-30] MEDS: Magnesium Oxide 400 MG TABLET PO SCH ×3 (10:22→21:44)
[2017-11-30] MEDS: BuPROPion XL (24 HR) 150 MG TABLET PO SCH (10:22)
[2017-11-30] MEDS: 0.9 % Sodium Chloride 1,000 ML IVC SCH ×2 (12:23→23:02)
--- NOTE | 2017-11-30 13:38 | Cardiology Consult Note ---
Date of Encounter: 11/30/17 Time of Encounter: 12:30 Assessment and Plan (1) PAF (paroxysmal atrial fibrillation) Current Visit: No Status: Chronic Per cardiology: -Admitted with small bowel obstruction. Currently NPO with NG tube. -Hx of atrial flutter ablation. -Currently a.fib/flutter RVR, average HR 117. 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 -She continues to be on aspirin for stroke risk reduction. Patient is aware of increased risk of CVA/emolic event while not on full anticoagulation. -TTE 10/2017 EF 60%, mild concentric LVH, moderate diastolic dysfunction, mildly dilated RV, mildly dilated LA, moderate pulmonary hypertension, no segmental wall motion abnormalities. -Had been on cardizem CD 120mg in outpatient setting, now unable to take oral medications. -Will start cardizem drip. -Will continue to monitor. (2) History of ventricular tachycardia Current Visit: Yes Status: Acute Per cardiology: -HIstory of VT, has ICD. -Previously on amiodarone, stopped during last hospital admission due to worsening respiratory status. -Follows with Dr.John Kearns, is supposed to have repeat PFT in outpateint setting. -Denies ICD shocks. -[facility] 05/2016 with angiographically normal coronaries. (3) Preop cardiovascular exam Current Visit: Yes Status: Acute Per cardiology: -Possible exploratory lap for small bowel obstruction. -Poor functional capacity, unable to achieve 4 mets due to shortness of breath. -TTE as above with LVEF preserved, no segmental wall motion abnormalities. -[facility] 05/2016 with angiogrpahically normal coronaries. -ECG with a.flutter. -Discussed and reviewed with , patient is at least moderate risk for cardiovascular complications in the arden-operative time period. Discussion w patient/family: The assessment and plan as outlined above was discussed with the patient and/or family members who expressed understanding and agreement. All questions were answered. Thank you for involving us in the care of your patient. Please call with any questions. Discussed and reviewed with . History of Present Illness Consult date: 11/30/17 Requesting physician: Jacob Garcia Consult reason: afib RVR Chief complaint: abdominal pain History of present illness: Ms. Hebert is a 67 year old female with a relevant past medical history of V.fib s/p ICD, PAF not on anticoagulation due to alveolar hemmhorage, hyperlipidemia, HTN, CHF. Patient presented to [facility] with complaints of abdominal pain, nausea, vomiting. Cardiology has been asked to see patient due to a.fib RVR. Patient denies chest pain. Denies palpitations or fluttering. Patient reports shortness of breath with exertion. Denies ICD shocks. Past Med Surg Social Fam HX - Past Medical History Attestation: Yes The following information was validated with the patient. Source: patient, old records reviewed, obtained from family Medical history: atrial fibrillation, CHF, COPD, coronary artery disease, diabetes, hyperlipidemia, hypertension, myocardial infarction, other Psychiatric history: no psych history - Past Surgical History Surgical History: hysterectomy, pacemaker/AICD, other - Social History Smoking Status: Never smoker Smokeless Tobacco Status: No Alcohol use: none Drug use: none - Family History Mother Living Status: Hx Family Cardiac Disorders: Yes Hx Family Endocrine Disorder: Yes Medications and Allergies Aspirin 81 mg PO DAILY 06/05/16 [History] Multivitamin [Multivitamins] 1 cap PO DAILY 06/05/16 [History] Calcium Carbonate [Calcium] 1,000 mg PO BID 04/28/17 [History] Ferrous Sulfate 325 mg PO DAILY 04/28/17 [History] Alosetron HCl 0.5 mg PO BID 08/19/17 [History] Baclofen [Lioresal] 10 mg PO TID PRN 08/19/17 [History] Cholecalciferol (D-3) [Vitamin D] 2,000 unit PO DAILY #30 tablet 08/25/17 [Rx] Albuterol Sulfate [Ventolin Hfa] 2 puff IH Q6H PRN 09/11/17 [History] Beclomethasone Diprop 80mcg [QVAR 80 mcg] 1 puff IH BID 09/11/17 [History] BuPROPion XL (24 HR) [Wellbutrin Xl] 150 mg PO DAILY 09/11/17 [History] Colestipol HCl [Colestid] 2 gm PO DAILY 10/29/17 [History] Cyanocobalamin (Vitamin B-12) [Vitamin B12] 1,000 mcg PO DAILY 10/29/17 [History ] Hyoscyamine SL [Levsin Sl] 0.125 mg SL Q4H PRN 10/29/17 [History] Meclizine [Antivert] 25 mg PO DAILY PRN 10/29/17 [History] Oxygen 2 l .ROUTE AD 10/29/17 [History] Albuterol Neb [Proventil Neb] 2.5 mg IH Q2H PRN inhsol 11/07/17 [Rx] Menthol [Cough Drops] 9.1 mg PO Q2H PRN lozenge 11/07/17 [Rx] Nitroglycerin 0.4 mg SL Q5MIN PRN tab.subl 11/07/17 [Rx] Lipase/Protease/Amylase [Micky Ramos 6,000 Units Capsule] 2 each PO ACHS #240 capsule.dr 11/17/17 [Rx] Diltiazem CD (24hr) [Cardizem CD] 120 mg PO DAILY 11/27/17 [History] Magnesium Oxide [Mag-Ox] 400 mg PO TID 11/27/17 [History] Amiodarone [Cordarone] 200 mg PO DAILY 11/29/17 [History] 3 Allergy/AdvReac Type Severity Reaction Status Date / Time peanut Allergy Hives Verified 11/26/17 10:44 zinc Allergy Hives Verified 11/26/17 10:44 Sulfa (Sulfonamide AdvReac Mild constipatio Verified 11/26/17 10:44 Antibiotics) n All Systems Review: The remainder of the systems were reviewed and are negative - Cardiovascular Cardiovascular: as per HPI - Gastrointestinal Gastrointestinal: abdominal pain, nausea Physical Examination Vital Signs, Last 4 Hours Temp Pulse Resp BP Pulse Ox 11/30/17 10:50 98.2 F 102 20 107/74 94 General: Conversant, No Apparent Distress HEENT: Atraumatic, Normocephaly, Mucus Membranes Moist Neck: No JVD, Normal carotid pulses Cardiac: Normal S1 and S2, No Murmur, Other (Irregularly irregular, tachycardic. ) Lungs: Normal Breath Sounds, No Wheeze, Rales, Rhonchi Neuro: Alert and responsive, No focal deficits noted Abdomen: Soft, Other (Tender. NG tube noted. ) Skin: No rashes noted on visualized skin Musculoskeletal: No Chest Wall Tenderness Extremities: No Clubbing, No Cyanosis, No Edema, Normal Pulses Results 11/30/17 05:45 11/30/17 05:45 Lab Results Active Medications Albuterol Sulfate (Proventil Neb) 2.5 mg IH Q2H PRN; Protocol PRN Reason: Shortness Of Breath/Wheezing Stop: 05/31/18 09:43 Amiodarone HCl (Cordarone) 200 mg PO DAILY TALA Stop: 05/31/18 09:46 Last Admin: 11/30/17 10:21 Dose: Not Given Aspirin (Aspirin) 81 mg PO DAILY TALA Stop: 05/31/18 09:46 Last Admin: 11/30/17 10:21 Dose: Not Given Baclofen (Lioresal) 10 mg PO TID PRN PRN Reason: Muscle Spasm Stop: 05/31/18 09:43 Beclomethasone Dipropionate (Qvar 80 Mcg) 1 puff IH BID TALA PRN Reason: Protocol Stop: 05/31/18 09:46 Last Admin: 11/30/17 07:47 Dose: 1 puff Benzonatate (Tessalon) 100 mg PO TID PRN PRN Reason: Cough Stop: 05/31/18 09:46 Last Admin: 11/29/17 20:00 Dose: 100 mg Bupropion HCl (Wellbutrin Xl) 150 mg PO DAILY [facility] Stop: 05/31/18 09:46 Last Admin: 11/30/17 10:22 Dose: Not Given Calcium Carbonate (Tums) 500 mg PO Q6HR PRN; Protocol PRN Reason: Heartburn Stop: 06/01/18 03:49 Last Admin: 11/30/17 03:59 Dose: 500 mg Dextrose/Water (Dextrose 50% (Syg)) 25 ml IVP AD PRN PRN Reason: Hypoglycemia Stop: 05/29/18 05:40 Last Admin: 11/27/17 11:41 Dose: 25 ml Diltiazem HCl (Cardizem) 30 mg PO Q6HR TALA Stop: 05/31/18 15:16 Last Admin: 11/30/17 11:00 Dose: Not Given Glucagon (Glucagen) 1 mg IM ONCE PRN PRN Reason: Hypoglycemia Stop: 05/29/18 05:40 Glucose (Gluctose) 15 gm PO ONCE PRN PRN Reason: Hypoglycemia Stop: 05/29/18 05:40 Glucose (Gluctose) 30 gm PO ONCE PRN PRN Reason: Hypoglycemia Stop: 05/29/18 05:40 Dextrose (Dextrose 5%) 1,000 mls @ 100 mls/hr IVC .Q10H PRN PRN Reason: HYPOGLYCEMIA Stop: 05/29/18 05:40 Last Infusion: 11/28/17 10:51 Dose: Infused Sodium Chloride (0.9 % Sodium Chloride) 1,000 mls @ 100 mls/hr IVC .Q10H TALA Stop: 06/01/18 11:31 Last Admin: 11/30/17 12:23 Dose: 100 mls/hr Magnesium Oxide (Mag-Ox) 400 mg PO TID TALA PRN Reason: Protocol Stop: 05/31/18 15:01 Last Admin: 11/30/17 10:22 Dose: Not Given Meclizine HCl (Antivert) 25 mg PO DAILY PRN PRN Reason: DIZZINESS Stop: 05/31/18 09:43 Menthol (Cough Drops) 9.1 mg PO Q2H PRN PRN Reason: Cough Stop: 05/31/18 09:43 Metoprolol Tartrate (Lopressor) 5 mg IVP Q6HR PRN PRN Reason: HR sustained over 100 Stop: 05/31/18 14:14 Last Admin: 11/30/17 09:57 Dose: 5 mg Multi-Ingredient Mucositis [place] (Chloraseptic) 2 spray MM QID PRN PRN Reason: Sore Throat Stop: 05/28/18 22:33 Last Admin: 11/26/17 22:42 Dose: 2 spray Naloxone HCl (Narcan) 0.4 mg IVP Q2MIN PRN PRN Reason: SEE COMMENTS Stop: 05/28/18 14:42 Nitroglycerin (Nitroglycerin) 0.4 mg SL Q5MIN PRN PRN Reason: Chest Pain Stop: 05/31/18 09:43 Ondansetron HCl (Zofran) 4 mg IVP Q4HR PRN; Protocol PRN Reason: Nausea And Vomiting Stop: 06/01/18 04:01 Last Admin: 11/30/17 09:58 Dose: 4 mg Laboratory Tests 11/26/17 11/29/17 11/30/17 11:07 04:01 05:45 Hgb 9.8 L 11.3 L D Potassium Creatinine 1.67 H Magnesium Troponin I < 0.03 11/30/17 05:45 Hgb Potassium 5.4 H Creatinine 1.16 Magnesium 1.6 Troponin I - Imaging and Cardiology Chest Xray: report reviewed Echo: report reviewed Cardiac cath: report reviewed - EKG Interpretation EKG results cardiology: personally reviewed (ECG with claudia/flutter, HR 91.), other (Telemetry reviewed with average HR previous 12 hours noted to be 117, a.fib RVR.) Consult Discharge Plan - Plan Referrals: Sloane Murphy, [Primary Care Provider] -
[2017-11-30] MEDS ORDERED: *HR* Digoxin 0.5 MG/2 ML AMPUL IVP ONE (16:04)
--- NOTE | 2017-11-30 19:23 | Anesthesia Evaluation PreOp ---
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 History: Denies Any Significant HX Other Medical History: Diabetes Type II, Other (depression) Anesthesia History: Past Anesthesia, Problems (PONV) Alcohol Use: none Drug use: none Medications and Allergies Aspirin 81 mg PO DAILY 06/05/16 [History] Multivitamin [Multivitamins] 1 cap PO DAILY 06/05/16 [History] Calcium Carbonate [Calcium] 1,000 mg PO BID 04/28/17 [History] Ferrous Sulfate 325 mg PO DAILY 04/28/17 [History] Alosetron HCl 0.5 mg PO BID 08/19/17 [History] Baclofen [Lioresal] 10 mg PO TID PRN 08/19/17 [History] Cholecalciferol (D-3) [Vitamin D] 2,000 unit PO DAILY #30 tablet 08/25/17 [Rx] Albuterol Sulfate [Ventolin Hfa] 2 puff IH Q6H PRN 09/11/17 [History] Beclomethasone Diprop 80mcg [QVAR 80 mcg] 1 puff IH BID 09/11/17 [History] BuPROPion XL (24 HR) [Wellbutrin Xl] 150 mg PO DAILY 09/11/17 [History] Colestipol HCl [Colestid] 2 gm PO DAILY 10/29/17 [History] Cyanocobalamin (Vitamin B-12) [Vitamin B12] 1,000 mcg PO DAILY 10/29/17 [History ] Hyoscyamine SL [Levsin Sl] 0.125 mg SL Q4H PRN 10/29/17 [History] Meclizine [Antivert] 25 mg PO DAILY PRN 10/29/17 [History] Oxygen 2 l .ROUTE AD 10/29/17 [History] Albuterol Neb [Proventil Neb] 2.5 mg IH Q2H PRN inhsol 11/07/17 [Rx] Menthol [Cough Drops] 9.1 mg PO Q2H PRN lozenge 11/07/17 [Rx] Nitroglycerin 0.4 mg SL Q5MIN PRN tab.subl 11/07/17 [Rx] Lipase/Protease/Amylase [Micky Ramos 6,000 Units Capsule] 2 each PO ACHS #240 capsule. 11/17/17 [Rx] Diltiazem CD (24hr) [Cardizem CD] 120 mg PO DAILY 11/27/17 [History] Magnesium Oxide [Mag-Ox] 400 mg PO TID 11/27/17 [History] Amiodarone [Cordarone] 200 mg PO DAILY 11/29/17 [History] 3 Allergy/AdvReac Type Severity Reaction Status Date / Time peanut Allergy Hives Verified 11/26/17 10:44 zinc Allergy Hives Verified 11/26/17 10:44 Sulfa (Sulfonamide AdvReac Mild constipatio Verified 11/26/17 10:44 Antibiotics) n - Meds/Allergy Pre-op Review Medications Reviewed: Yes Allergies Reviewed: Yes Beta Blockers on Current Med List: Yes If Beta Blockers taken, Date/Time (Last Dose taken): 11/30/2017 at 0957 Anesthesia Results - Labs 11/30/17 05:45 11/30/17 05:45 Laboratory Tests 11/26/17 11:09 PT 12.4 H INR 1.1 - Imaging EKG: report reviewed (11/26/2017 ATRIAL FLUTTER/TACHYCARDIA) Additional studies: 10/29/2017 Echo Impressions: LVEF 60%. Mild concentric left ventricular hypertrophy. Moderate left ventricular diastolic dysfunction. Mildly dilated right ventricle. Mildly dilated left atrium. Moderate pulmonary hypertension. A device lead was visualized in the right atrium and right ventricle. 07/04/2016 Limited Echo Impressions: LVEF 60-65%. Normal LV chamber size, wall thickness and function. Normal right ventricular structure and function. The pericardium appears normal. No effusion. 06/23/2016 LEFT HEART CATH Indications: VF Impressions: Coronary arteries are angiographically normal. Normal LV systolic function. EF 60%. Recommendations: Optimal medical therapy of patient's disease. Aggressive risk factor modification. Anesthesia Exam Vital Signs/O2 Sat/Glucose, Most Recent Temp Pulse Resp BP Pulse Ox 98.8 F 118 15 96/61 98 11/30/17 19:00 11/30/17 19:00 11/30/17 19:00 11/30/17 19:00 11/30/17 19:00 Blood Glucose* 82 Height: 5'6''/1.68m Weight: 132 lbs Pain Scale: 0 Pain Scale Used: Numeric (1 - 10) - HEENT Pupil (Motor): EOMI Mallampati: II Teeth: Normal Denture Type: Upper: Partial, Lower: Partial Oral Opening: Greater than 3 - BULK PLANT MANAGER LOC: Oriented [employer]K PLANT MANAGER Motor: Normal RUE, Normal LUE, Normal RLE, Normal LLE, Normal Face [employer]K PLANT MANAGER Sensory: Normal: RUE, LUE, Face, Deficit: RLE, LLE - Cardiac Rhythm: Regular Murmur: None - Pulmonary Breath Sounds: bilateral Clear Respiratory Effort: Symmetrical Anesthesia Assess/Plan ASA Score: 4 Modified Mirella Scale for Level of Consciousness: Cooperative, oriented, and tranquil Anesthetic Plan: General Monitoring Plan: Standard Monitors Recovery Plan: PACU
[2017-12-01] MEDS: *HR* Metoprolol 5 MG/5 ML VIAL IVP PRN (00:52)
[2017-12-01 05:24] LABS: Basophils % 0.6 %; Eosinophils # 0.6 K/mcL (0.0-0.6); Eosinophils % 10.2 %; Hematocrit 31.9 % (35.3-44.9); Immature Granulocytes % 0.2 % (0-4); Lymphocytes # 2.2 K/mcL (0.6-4.6); Lymphocytes % 36.1 %; Mean Corpuscular HGB Conc 29.5 g/dL (31.6-35.5); Mean Corpuscular Hemoglobin 28.7 pg (28.0-33.3); Mean Corpuscular Volume 97.6 fL (83.0-100.0); Mean Platelet Volume 10.7 fL (9.4-12.4); Monocytes # 0.4 K/mcL (0.0-1.3); Monocytes % 6.8 %; Neutrophils # 2.9 K/mcL (1.6-8.9); Platelet Count 177 K/mcL (140-400); Red Blood Count 3.27 M/mcL (3.82-4.97); Red Cell Distribution Width 15.8 % (11.5-14.5); Segmented Neutrophils % 46.1 %
[2017-12-01 05:34] LABS: Hemoglobin 9.4 g/dL (11.5-15.4)
[2017-12-01 05:50] LABS: Calcium 8.1 mg/dL (8.6-10.3); Potassium 4.8 mEq/L (3.5-5.1)
[2017-12-01] MEDS: *HR* Dextrose 50 % in Water (Syg) 50 ML SYRINGE IVP PRN (06:54)
[2017-12-01] MEDS: D5% in Water 1,000 ML IVC PRN (06:59)
[2017-12-01] MEDS: Beclomethasone 80mcg MDI IH SCH ×2 (07:25→20:24)
--- NOTE | 2017-12-01 08:56 | Cardiology Progress Note ---
Date of Encounter: 12/01/17 Time of Encounter: 08:30 Assessment and Plan (1) PAF (paroxysmal atrial fibrillation) Current Visit: No Status: Chronic Per cardiology: -Admitted with small bowel obstruction. Currently NPO with NG tube. -Hx of atrial flutter ablation. -Patient is currently NPO with NG tube. Was given IV digoxin yesterday, HR much improved. -Currently a.fib/flutter RVR, average HR 92. 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 -She continues to be on aspirin for stroke risk reduction. Patient is aware of increased risk of CVA/emolic event while not on full anticoagulation. -TTE 10/2017 EF 60%, mild concentric LVH, moderate diastolic dysfunction, mildly dilated RV, mildly dilated LA, moderate pulmonary hypertension, no segmental wall motion abnormalities. -Had been on cardizem CD 120mg in outpatient setting. -Recommend resuming home cardizem CD 120mg when able with NPO status and BP. -Will continue to monitor. (2) History of ventricular tachycardia Current Visit: Yes Status: Acute Per cardiology: -HIstory of VT, has ICD. -Previously on amiodarone, stopped during last hospital admission due to worsening respiratory status. -Follows with Dr.John Kearns, is supposed to have repeat PFT in outpateint setting. -Denies ICD shocks. -[facility] 05/2016 with angiographically normal coronaries. Discussion w patient/family: The assessment and plan as outlined above was discussed with the patient who expressed understanding and agreement. All questions were answered. Thank you for involving us in the care of your patient. Please call with any questions. Discussed and reviewed with . Subjective Principal diagnosis: small bowel obstruction Interval history: Patient denies chest pain or increased shortness of breath today. Denies palpitations or fluttering. Objective Vital Signs, Last 4 Hours Temp Pulse Resp BP Pulse Ox 12/01/17 07:27 14 98 12/01/17 06:21 97.8 F 95 14 97/56 98 General: Conversant, No Apparent Distress HEENT: Atraumatic, Normocephaly, Mucus Membranes Moist Neck: No JVD, Normal carotid pulses Cardiac: Normal S1 and S2, No Murmur, Other (Irregularly irregular) Lungs: Normal Breath Sounds, No Wheeze, Rales, Rhonchi Neuro: Alert and responsive, No focal deficits noted Abdomen: Soft, Other (Tender. NG tube in place. ) Skin: No rashes noted on visualized skin Musculoskeletal: No Chest Wall Tenderness Extremities: No Clubbing, No Cyanosis, No Edema, Normal Pulses Results 12/01/17 05:02 12/01/17 05:02 Lab Results Active Medications Albuterol Sulfate (Proventil Neb) 2.5 mg IH Q2H PRN; Protocol PRN Reason: Shortness Of Breath/Wheezing Stop: 05/31/18 09:43 Amiodarone HCl (Cordarone) 200 mg PO DAILY TALA Stop: 05/31/18 09:46 Last Admin: 11/30/17 10:21 Dose: Not Given Aspirin (Aspirin) 81 mg PO DAILY TALA Stop: 05/31/18 09:46 Last Admin: 11/30/17 10:21 Dose: Not Given Baclofen (Lioresal) 10 mg PO TID PRN PRN Reason: Muscle Spasm Stop: 05/31/18 09:43 Beclomethasone Dipropionate (Qvar 80 Mcg) 1 puff IH BID TALA PRN Reason: Protocol Stop: 05/31/18 09:46 Last Admin: 12/01/17 07:25 Dose: 1 puff Benzonatate (Tessalon) 100 mg PO TID PRN PRN Reason: Cough Stop: 05/31/18 09:46 Last Admin: 11/29/17 20:00 Dose: 100 mg Bupropion HCl (Wellbutrin Xl) 150 mg PO DAILY TALA Stop: 05/31/18 09:46 Last Admin: 11/30/17 10:22 Dose: Not Given Calcium Carbonate (Tums) 500 mg PO Q6HR PRN; Protocol PRN Reason: Heartburn Stop: 06/01/18 03:49 Last Admin: 11/30/17 03:59 Dose: 500 mg Dextrose/Water (Dextrose 50% (Syg)) 25 ml IVP AD PRN PRN Reason: Hypoglycemia Stop: 05/29/18 05:40 Last Admin: 12/01/17 06:54 Dose: 25 ml Glucagon (Glucagen) 1 mg IM ONCE PRN PRN Reason: Hypoglycemia Stop: 05/29/18 05:40 Glucose (Gluctose) 15 gm PO ONCE PRN PRN Reason: Hypoglycemia Stop: 05/29/18 05:40 Glucose (Gluctose) 30 gm PO ONCE PRN PRN Reason: Hypoglycemia Stop: 05/29/18 05:40 Dextrose (Dextrose 5%) 1,000 mls @ 100 mls/hr IVC .Q10H PRN PRN Reason: HYPOGLYCEMIA Stop: 05/29/18 05:40 Last Admin: 12/01/17 06:59 Dose: 100 mls/hr Sodium Chloride (0.9 % Sodium Chloride) 1,000 mls @ 100 mls/hr IVC .Q10H TALA Stop: 06/01/18 11:31 Last Infusion: 12/01/17 07:02 Dose: Infused Diltiazem HCl 125 mg/ Sodium (Chloride) 125 mls @ 5 mls/hr IVC .Q24H TALA; 5 MG/ HR PRN Reason: Protocol Stop: 06/01/18 14:01 Last Admin: 11/30/17 17:29 Dose: Not Given Magnesium Oxide (Mag-Ox) 400 mg PO TID TALA PRN Reason: Protocol Stop: 05/31/18 15:01 Last Admin: 11/30/17 21:44 Dose: Not Given Meclizine HCl (Antivert) 25 mg PO DAILY PRN PRN Reason: DIZZINESS Stop: 05/31/18 09:43 Menthol (Cough Drops) 9.1 mg PO Q2H PRN PRN Reason: Cough Stop: 05/31/18 09:43 Metoprolol Tartrate (Lopressor) 5 mg IVP Q6HR PRN PRN Reason: HR sustained over 100 Stop: 05/31/18 14:14 Last Admin: 12/01/17 00:52 Dose: 5 mg Multi-Ingredient Mucositis Pearson (Chloraseptic) 2 spray MM QID PRN PRN Reason: Sore Throat Stop: 05/28/18 22:33 Last Admin: 11/26/17 22:42 Dose: 2 spray Naloxone HCl (Narcan) 0.4 mg IVP Q2MIN PRN PRN Reason: SEE COMMENTS Stop: 05/28/18 14:42 Nitroglycerin (Nitroglycerin) 0.4 mg SL Q5MIN PRN PRN Reason: Chest Pain Stop: 05/31/18 09:43 Ondansetron HCl (Zofran) 4 mg IVP Q4HR PRN; Protocol PRN Reason: Nausea And Vomiting Stop: 06/01/18 04:01 Last Admin: 11/30/17 15:32 Dose: 4 mg Laboratory Tests 12/01/17 12/01/17 05:02 05:02 Hgb 9.4 L D Potassium 4.8 Creatinine 1.12 - Imaging and Cardiology Chest Xray: report reviewed Echo: report reviewed Cardiac cath: report reviewed - EKG Interpretation EKG results cardiology: other (Telemetry reviewed with average HR previous 12 hours noted to be 92, a.fib/flutter.) Consult Discharge Plan - Plan Referrals: Sloane Murphy DO [Primary Care Provider] -
[2017-12-01] MEDS: Aspirin 81 MG TAB.CHEW PO SCH (10:24)
[2017-12-01] MEDS: Magnesium Oxide 400 MG TABLET PO SCH (10:24)
[2017-12-01] MEDS: BuPROPion XL (24 HR) 150 MG TABLET PO SCH (10:24)
[2017-12-01] MEDS ORDERED: *HR* FentaNYL (PF) 100 MCG/2 ML VIAL ONE ×3 (14:16→15:37)
[2017-12-01] MEDS ORDERED: *HR* Midazolam HCl 2 MG/2 ML VIAL ONE ×2 (14:16→14:40)
[2017-12-01] MEDS ORDERED: *HR* Succinylcholine 200 MG/10 ML VIAL IVP ONE ×2 (14:17→14:47)
[2017-12-01] MEDS ORDERED: Lidocaine -MPF 2% 2 ML VIAL ONE ×2 (14:17→14:40)
[2017-12-01] MEDS ORDERED: *HR* Rocuronium Bromide 50 MG/5 ML VIAL ONE ×2 (14:17→14:40)
[2017-12-01] MEDS ORDERED: *HR* Propofol 200 MG/20 ML VIAL IVP ONE ×2 (14:17→14:40)
[2017-12-01] MEDS ORDERED: Albuterol 2.5 MG/3 ML NEBULIZER IH ONE (14:18)
[2017-12-01] MEDS ORDERED: Famotidine 20 MG/2 ML VIAL ONE (14:32)
[2017-12-01] MEDS ORDERED: Metoclopramide 10 MG/2 ML VIAL ONE (14:32)
[2017-12-01] MEDS ORDERED: CefOXitin 1,000 MG VIAL ONE (14:36)
[2017-12-01] MEDS ORDERED: CefOXitin 2,000 MG VIAL ONE (14:40)
[2017-12-01] MEDS ORDERED: cefOXitin 2,000 MG in Water for inj. (sterile) 20 ML 20 ML IVP ONE (14:42)
[2017-12-01] MEDS ORDERED: *HR* Etomidate 40 MG/20 ML VIAL IVP ONE (14:46)
[2017-12-01] MEDS ORDERED: *HR* PHENYLEPHRINE 1,000 MCG/10 ML SYRINGE IVP ONE ×2 (15:04→15:09)
[2017-12-01] MEDS ORDERED: EPHEDrine 50 MG/ML VIAL ONE (15:06)
[2017-12-01] MEDS ORDERED: Dexamethasone 4 MG/ML VIAL ONE (15:26)
[2017-12-01] MEDS ORDERED: Neostigmine Methylsulfate 3 MG/3 ML SYRINGE ONE (16:01)
--- NOTE | 2017-12-01 16:07 | Internal Med Progress Note ---
Date of Encounter: 12/01/17 Time of Encounter: 16:07 - Assessment and plan (1) Small bowel obstruction Current Visit: Yes Status: Acute Assessment and plan: Still symptomatic, NG was out on 11/29 but had to be reinserted. Plan for ex lap today. (2) PAF (paroxysmal atrial fibrillation) Current Visit: No Status: Chronic Assessment and plan: Has been in rapid atrial fib now constant. No anticoagulation due to prior hx of alveolar hemorrhage. Currently NPO, medications have been switched to IV per Cardiology team Cardiology following, recommendations appreciated (3) HCAP (healthcare-associated pneumonia) Current Visit: No Status: Ruled-out (4) Diabetes mellitus, type 2 Current Visit: No Status: Chronic Assessment and plan: Monitoring blood sugars Qualifiers: Diabetes mellitus half-way insulin use: without half-way use Diabetes mellitus complication status: without complication Qualified Code(s): E11.9 - Type 2 diabetes mellitus without complications (5) Hypomagnesemia Current Visit: No Status: Resolved Assessment and plan: Restart PO Magox. Recheck and replace as needed. (6) CKD (chronic kidney disease) stage 3, GFR 30-59 ml/min Current Visit: No Status: Chronic Assessment and plan: Avoid nephrotoxins as able. Renal dose medications (7) HTN (hypertension) Current Visit: No Status: Chronic Assessment and plan: Monitoring blood pressure. HTN medications may need adjustment post op Qualifiers: Hypertension type: essential hypertension Qualified Code(s): I10 - Essential (primary) hypertension (8) Chronic respiratory failure with hypoxia Current Visit: Yes Status: Chronic Assessment and plan: Supplemental O2 as needed. (9) Chronic diastolic heart failure Current Visit: Yes Status: Chronic Assessment and plan: No acute issues. (10) DVT prophylaxis Current Visit: Yes Status: Acute Assessment and plan: SCDs. 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 - Time Spent With Patient Total time spent is greater than 50% in coordination of care (as documented) at patient's floor/unit and/or counseling patient: - Subjective Interval history: Patient complained of N/V this AM and diarrhea yesterday (though she does have diarrhea at baseline). She denies feverschills. Complaints of abdominal fullness, states she may have eaten too much today. 12/01: Patient going for surgery today - Constitutional Vitals: Temp Pulse Resp BP Pulse Ox 97.7 F 73 14 101/63 93 12/01/17 11:49 12/01/17 11:49 12/01/17 11:49 12/01/17 11:49 12/01/17 11:49 General appearance: Present: A&O X 3, answers questions appropriately - Respiratory Respiratory exam: Present: CTAB. Absent: accessory muscle use, rales, rhonchi, wheezes - Cardiovascular Cardiovascular exam: Present: irregular rhythm, +S1, +S2, tachycardia - GI/Abdominal GI/Abdominal exam: Present: normal bowel sounds, tenderness. Absent: distended - Extremities Exam Extremities exam: Present: warm, radial pulses palpable and symmetrical. Absent : calf tenderness, cyanotic, pedal edema Internal Medicine: Result - Labs CBC & Chem 7: 12/01/17 05:02 12/01/17 05:02 Labs: Short CBC 12/01/17 Range/Units 05:02 WBC 6.2 (4.3-11.1) K/mcL Hgb 9.4 L D (11.5-15.4) g/dL Hct 31.9 L (35.3-44.9) % Plt Count 177 (140-400) K/mcL Neutrophils # 2.9 (1.6-8.9) K/mcL BMP 12/01/17 05:02 Sodium 142 Potassium 4.8 Chloride 105 Carbon Dioxide 35 H BUN 14 Creatinine 1.12 Glucose 69 L Calcium 8.1 L - ABG Interpretation ABG results: PT/INR, D-dimer PT 12.4 Seconds (9.4-12.1) H 11/26/17 11:09 Consult Discharge Plan - Plan Referrals: Sloane Murphy DO [Primary Care Provider] -
--- NOTE | 2017-12-01 16:13 | Operative Note ---
Date of procedure: 12/01/17 Pre-op diagnosis: Partial small bowel obstruction Post-op diagnosis: same Procedure: 1. Exploratory celiotomy. 2. Lysis of adhesions. Anesthesia: JOANN Surgeon: Nadeem Chauhan Was there an registrar assistant present: No Estimated blood loss (cc): 10 Specimen: none Condition: stable Disposition: PACU Procedure in Detail: Date of surgery: 12/01/17 After properly identifying the patient, the patient was brought to the operating room and placed in the supine position. After proper IV sedation was achieved followed by general endotracheal intubation, the patient's abdomen was prepped and draped in normal sterile fashion. A timeout was performed noting the patient's name and type of procedure to be performed. A 10 blade scalpel was used to make an incision from near the umbilicus down towards the pubic symphysis along the midline. Bovie cauterization was used to dissected the subcutaneous tissue until the rectus fascia was encountered. The patient had a previous midline incision with scar tissue noted. This dissection was carried through this area until the abdominal wall fascia was incised and the abdomen was entered. There were some adhesions along the undersurface of the abdominal fascia which were taken down with a combination of sharp dissection and Bovie cauterization. This allowed for eventual injury to the abdomen. After this was performed the small bowel was noted to be dilated and was run from proximal to the ligament of Treitz distally. Upon identifying the region of the ileum there were some adhesions noted in the pelvis practically surrounding the sigmoid colon which seemed to be adhesed to a portion of the small bowel. These were taken down with combination Bovie cauterization and blunt dissection. Once this was performed further dissection was performed with a loop of omentum in this region is seen to tether or kink the small bowel. This was also taken down with Bovie cauterization. Bovie cauterization was then used to dissect additional distal ileal adhesions along the sidewall until the transition from the ileum towards the cecum could be identified which was noted more in the right upper quadrant region. There is no evidence of a mass effect or stenosis and this appeared to be a region of normal-appearing bowel consistent with a transition zone. Once the small bowel was run once again there was no evidence of ischemia along the serosa or mesentery. The decision was then made to go ahead and include this surgical procedure by closing the midline incision with looped #1 PDS 2. The subcutaneous tissue was then reapproximated with interrupted 2-0 Vicryl sutures and the epidermal and dermal layers were reapproximated with patel. Needle, sponge, and instrument counts were correct 2 and incisions were covered with 4 x 4's. The patient was aroused from IV sedation, extubated in the operating room without complication, and transported to the recovery room in stable condition.
[2017-12-01] MEDS ORDERED: *HR* Nalbuphine 20 MG/ML AMPUL ONE (16:21)
[2017-12-01] MEDS ORDERED: *HR* Promethazine 25 MG/ML VIAL IVP PRN (16:33)
[2017-12-01] MEDS ORDERED: *HR* Morphine 2 MG/ML SYRINGE IVP PRN (16:33)
--- NOTE | 2017-12-01 16:51 | Anesthesia Evaluation Post Op ---
Date of Encounter: 12/01/17 Time of Encounter: 17:00 - Vital Signs Vital Signs: Vital Signs/O2 Sat/Glucose, Most Current Temp Pulse Resp BP Pulse Ox 12/01/17 16:41 86 22 115/65 100 12/01/17 16:31 84 22 107/63 100 12/01/17 16:21 99.2 F 84 22 119/69 100 - Lungs Lungs: Clear Ascult./Percussion - Airway Airway: Non-obstructed - Cardiovascular Regular Rate - Mental Status Mental Status: Alert & Oriented, Answers Appropriately - Pain Pain Scale: 0 - Nausea Vomiting Nausea Vomiting: Not Present - Hydration Hydration: Tolerates oral liquids - Discharge PostOp Status: Transfer Patient to floor
[2017-12-01] MEDS ORDERED: D5% in Water 1,000 ML IVC PRN (17:08)
[2017-12-01] MEDS ORDERED: Albuterol 2.5 MG/3 ML NEBULIZER IH PRN (17:08)
[2017-12-01] MEDS ORDERED: Chloraseptic Spray 177 ML BOTTLE MM PRN (17:08)
[2017-12-01] MEDS ORDERED: Nitroglycerin 0.4 MG TAB.SUBL SL PRN (17:08)
[2017-12-01] MEDS ORDERED: Dextrose Gel 15 GM/37.5 ML TUBE PO PRN ×2 (17:08)
[2017-12-01] MEDS ORDERED: *HR* Dextrose 50 % in Water (Syg) 50 ML SYRINGE IVP PRN (17:08)
[2017-12-01] MEDS ORDERED: Naloxone 0.4 MG/ML INJ IVP PRN (17:08)
[2017-12-01] MEDS ORDERED: *HR* Metoprolol 5 MG/5 ML VIAL IVP PRN (17:08)
[2017-12-01] MEDS: MORPHINE SUL Oral CONC 10 MG/0.5 ML ORAL.SYG SL PRN ×2 (18:12→22:50)
[2017-12-01] MEDS: *HR* Heparin 5,000 UNIT/ML VIAL SQ SCH (18:13)
[2017-12-01] MEDS: 0.9 % Sodium Chloride 1,000 ML IVC SCH (21:50)
[2017-12-01] MEDS: cefOXitin 1,000 MG in Water for inj. (sterile) 20 ML 10 ML IVP SCH (23:47)
[2017-12-02] MEDS: MORPHINE SUL Oral CONC 10 MG/0.5 ML ORAL.SYG SL PRN ×2 (03:15→08:30)
[2017-12-02] MEDS: *HR* Heparin 5,000 UNIT/ML VIAL SQ SCH ×2 (06:26→18:00)
[2017-12-02 06:36] LABS: Hemoglobin 10.3 g/dL (11.5-15.4); Mean Corpuscular HGB Conc 31.2 g/dL (31.6-35.5); Mean Corpuscular Hemoglobin 30.4 pg (28.0-33.3); Mean Corpuscular Volume 97.3 fL (83.0-100.0); Mean Platelet Volume 10.5 fL (9.4-12.4); Monocytes # 0.6 K/mcL (0.0-1.3); Nucleated Red Blood Cells 0.2 /100 WBC (0); Platelet Count 202 K/mcL (140-400); Red Blood Count 3.39 M/mcL (3.82-4.97); Red Cell Distribution Width 15.6 % (11.5-14.5)
[2017-12-02 06:38] LABS: BUN/Creatinine Ratio 12 (6-26); Blood Urea Nitrogen 12 mg/dL (8-23); Calcium 8.2 mg/dL (8.6-10.3); Carbon Dioxide 29 mEq/L (23-29); Chloride 100 mEq/L (98-107); Glucose 107 mg/dL (70-105); Osmolality,Calculated 290 (280-300); Potassium 4.8 mEq/L (3.5-5.1); Sodium 140 mEq/L (136-145); eGFR For African Americans > 60 (> 60); eGFR For Non-African Americans 57 (> 60)
[2017-12-02 07:21] LABS: Lymphocytes # 0.6 K/mcL (0.6-4.6); Neutrophils # 8.4 K/mcL (1.6-8.9)
[2017-12-02 07:22] LABS: Platelet Estimate Normal (Normal)
--- NOTE | 2017-12-02 08:21 | Event Note ---
Date of Encounter: 12/02/17 Time of Encounter: 08:20 - Cardiology Event Note Telemetry reviewed with average HR previous 12 hours noted to be 95, a.fib/ flutter. Recommend resuming cardizem CD 120mg daily when ok with surgery and BP will tolerate. Cardiology will sign off and will follow in outpatient setting. Follow up set.
--- NOTE | 2017-12-02 08:23 | Internal Med Progress Note ---
Date of Encounter: 12/02/17 Time of Encounter: 08:21 - Assessment and plan (1) Small bowel obstruction Current Visit: Yes Status: Acute Assessment and plan: Patient did not improve with conservative measures 12/01: ex celiotomy with lysis adhesions today she states n/v significant improved. Surgery team following (2) PAF (paroxysmal atrial fibrillation) Current Visit: No Status: Chronic Assessment and plan: Has been in rapid atrial fib now constant. No anticoagulation due to prior hx of alveolar hemorrhage. Currently NPO, on IV digoxin, toprol prn Cardiology following, recommendations appreciated Per this morning recommendations, switch to PO Cardizem when able to tolerate diet. (3) Diabetes mellitus, type 2 Current Visit: No Status: Chronic Assessment and plan: Monitoring blood sugars, running 69-107, no insulin has been required. Qualifiers: Diabetes mellitus skilled nursing insulin use: without stage set designer use Diabetes mellitus complication status: without complication Qualified Code(s): E11.9 - Type 2 diabetes mellitus without complications (4) Hypomagnesemia Current Visit: No Status: Resolved Assessment and plan: Restart PO Magox. Recheck and replace as needed. (5) CKD (chronic kidney disease) stage 3, GFR 30-59 ml/min Current Visit: No Status: Chronic Assessment and plan: Avoid nephrotoxins as able. Renal dose medications Renal function improving. (6) HTN (hypertension) Current Visit: No Status: Chronic Assessment and plan: Monitoring blood pressure. HTN medications may need adjustment post op Currently unremarkable Qualifiers: Hypertension type: essential hypertension Qualified Code(s): I10 - Essential (primary) hypertension (7) Chronic respiratory failure with hypoxia Current Visit: Yes Status: Chronic Assessment and plan: Supplemental O2 as needed, no acute respiratory distress. (8) Chronic diastolic heart failure Current Visit: Yes Status: Chronic Assessment and plan: No acute issues. (9) DVT prophylaxis Current Visit: Yes Status: Acute Assessment and plan: SCDs. 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 - Time Spent With Patient Total time spent is greater than 50% in coordination of care (as documented) at patient's floor/unit and/or counseling patient: - Subjective Interval history: Patient complained of N/V this AM and diarrhea yesterday (though she does have diarrhea at baseline). She denies feverschills. 5:Complaints of abdominal fullness, states she may have eaten too much today. s/p lysis adhesions 12/01, doing well this morning. No fevers/chills, n/v, chest pain. - Constitutional Vitals: Temp Pulse Resp BP Pulse Ox 97.9 F 87 16 101/63 98 12/02/17 07:14 12/02/17 07:14 12/02/17 07:14 12/02/17 07:14 12/02/17 07:14 General appearance: Present: A&O X 3, answers questions appropriately - Respiratory Respiratory exam: Present: CTAB. Absent: accessory muscle use, rales, rhonchi, wheezes - Cardiovascular Cardiovascular exam: Present: irregular rhythm - GI/Abdominal GI/Abdominal exam: Present: normal bowel sounds, tenderness (near incision site , c/d/i) - Extremities Exam Extremities exam: Present: warm, radial pulses palpable and symmetrical. Absent : calf tenderness, cyanotic, pedal edema - Skin Additional comments: c/d/i incision Internal Medicine: Result - Labs CBC & Chem 7: 12/02/17 05:16 12/02/17 05:16 Labs: Short CBC 12/02/17 Range/Units 05:16 WBC 9.5 D (4.3-11.1) K/mcL Hgb 10.3 L (11.5-15.4) g/dL Hct 33.0 L (35.3-44.9) % Plt Count 202 (140-400) K/mcL Neutrophils # 8.4 (1.6-8.9) K/mcL BMP 12/02/17 05:16 Sodium 140 Potassium 4.8 Chloride 100 Carbon Dioxide 29 BUN 12 Creatinine 0.98 Glucose 107 H Calcium 8.2 L - ABG Interpretation ABG results: PT/INR, D-dimer PT 12.4 Seconds (9.4-12.1) H 11/26/17 11:09 - VTE Documentation of Mechanical Device: Intermittent pneumatic compression device Consult Discharge Plan - Plan Referrals: Sloane Murphy DO [Primary Care Provider] -
[2017-12-02] MEDS: Pantoprazole 40 MG VIAL IVP SCH (08:30)
[2017-12-02] MEDS: cefOXitin 1,000 MG in Water for inj. (sterile) 20 ML 10 ML IVP SCH ×2 (08:30→17:58)
[2017-12-02] MEDS: *HR* Digoxin 0.5 MG/2 ML AMPUL IVP SCH (08:31)
[2017-12-02] MEDS: 0.9 % Sodium Chloride 1,000 ML IVC SCH (08:33)
[2017-12-02] MEDS ORDERED: *HR* Digoxin 0.5 MG/2 ML AMPUL IVP SCH (09:00)
[2017-12-02] MEDS: Beclomethasone 80mcg MDI IH SCH ×2 (10:23→20:05)
--- NOTE | 2017-12-02 13:28 | General Surgery Progress Note ---
<Jose Francisco Zhang - Last Filed: 12/02/17 14:22> Date of Encounter: 12/02/17 Time of Encounter: 11:45 - Assessment and Plan (1) Small bowel obstruction Current Visit: Yes Status: Acute Some expected postop tenderness. Patient stated presenting symptoms have resolved but feels sore from surgery. Has no nausea, vomiting, or bloating this morning. Has not had any bowel movements, but has had flatus. Overall much more comfortable and inquires as to when she can begin advancing diet and ultimately when she may be able to be discharged. Plan: - POD#1 s/p ex-celiotomy - KUB in AM - NG on LIWS in the meantime - NPO until re-eval in AM; may advance clears at that time - continue IVF - PRN pain meds as needed - Antiemetics as needed Subjective Narrative: Patient comfortably supine in bed. States overall presenting pain has largely resolved; does have expected postop pain that is well-controlled with available analgesia. No fevers overnight. Patient does have NG tube still in place with scant G.I. output. Patient denies any ongoing nausea, vomiting, distention. Has had minimal flatus but no bowel movements yet. Patient inquires as to progression from NPO to full diet as well as timing of eventual discharge. Objective Vital Signs - Last 8 Hours Temp Pulse Resp BP Pulse Ox 12/02/17 11:14 98.9 F 92 17 125/74 12/02/17 10:23 18 95 12/02/17 08:39 98 12/02/17 07:14 97.9 F 87 16 101/63 98 Intake and Output 12/01/17 12/02/17 12/02/17 23:59 07:59 15:59 Intake Total 0 / 0 1020 / 1020 Output Total 270 / 270 200 / 200 Balance -270 / -270 -200 / -200 1020 / 1020 Intake: IV Fluids 1020 / 1020 0.9 % Sodium Chloride 1,000 ML 1000 / 1000 @ 100 mls/hr IVC .Q10H [facility] Rx#: [id number] Mefoxin 1,000 MG In Water for 20 / 20 inj. (sterile) 10 ML @ 300 mls/ hr IVP Q8HR [facility] Rx#:[id number] Oral 0 / 0 0 / 0 Output: Urine 100 / 100 200 / 200 Estimated Blood Loss 10 10 Gastric Drainage 160 / 160 Other: Meal Breakfast NPO Blood Glucose* 92 76 VITAL SIGNS: Reviewed. See [employer] GENERAL: in ED, pleasant, comfortably signing, NG tube in place on low- pressure wall section HEENT: [Normocephalic, PER, EOMi, oropharynx pink/moist, no JVD noted.] CV: b/l rad pulses 2+, RRR, no murmurs or gallops, no JVD RESPIRATORY: CTAB without wheezes, rales, or rhonchi ABD: soft, + mild tenderness, no rebound/guarding/rigidity, no peritoneal signs INCISION: clean, dry, intact without purulence/bleeding/edema/rubor/calor; no dehiscence EXTREMITY: grossly normal motor function, no pedal edema, peripheral pulses 2+ b /l NEUROLOGIC EXAM: AOx3, obeys commands, no speech deficits. PSYCHIATRIC: normal mood and affect SKIN: no gross lesions, rashes, or skin changes - Labs 12/02/17 05:16 12/02/17 05:16 Diabetes panel 12/02/17 Range/Units 05:16 Sodium 140 (136-145) mEq/L Potassium 4.8 (3.5-5.1) mEq/L Chloride 100 (98-107) mEq/L Carbon Dioxide 29 (23-29) mEq/L BUN 12 (8-23) mg/dL Creatinine 0.98 (0.60-1.20) mg/dL Glucose 107 H (70-105) mg/dL Calcium 8.2 L (8.6-10.3) mg/dL Calcium panel 12/02/17 Range/Units 05:16 Calcium 8.2 L (8.6-10.3) mg/dL Pituitary panel 12/02/17 Range/Units 05:16 Sodium 140 (136-145) mEq/L Potassium 4.8 (3.5-5.1) mEq/L Chloride 100 (98-107) mEq/L Carbon Dioxide 29 (23-29) mEq/L BUN 12 (8-23) mg/dL Creatinine 0.98 (0.60-1.20) mg/dL Glucose 107 H (70-105) mg/dL Calcium 8.2 L (8.6-10.3) mg/dL Adrenal panel 12/02/17 Range/Units 05:16 Sodium 140 (136-145) mEq/L Potassium 4.8 (3.5-5.1) mEq/L Chloride 100 (98-107) mEq/L Carbon Dioxide 29 (23-29) mEq/L BUN 12 (8-23) mg/dL Creatinine 0.98 (0.60-1.20) mg/dL Glucose 107 H (70-105) mg/dL Calcium 8.2 L (8.6-10.3) mg/dL - VTE Documentation of Mechanical Device: Intermittent pneumatic compression device Consult Discharge Plan - Plan Referrals: Sloane Murphy DO [Primary Care Provider] - <Nadeem Chauhan - Last Filed: 12/06/17 07:14> Date of Encounter: 12/02/17 Objective Vital Signs - Last 8 Hours Temp Pulse Resp BP Pulse Ox 12/06/17 06:24 18 90 12/06/17 03:39 99.7 F H 103 15 114/65 91 Intake and Output 12/05/17 12/05/17 12/06/17 15:59 23:59 07:59 Intake Total 1550 / 1550 560 / 560 1000 / 1000 Output Total 0 / 0 0 / 0 Balance 1550 / 1550 560 / 560 1000 / 1000 Intake: IV Fluids 1550 / 1550 560 / 560 1000 / 1000 Dextrose 5% 1,000 ML @ 75 mls/ 1000 / 1000 1000 / 1000 hr IVC .[id number] [facility] Rx#: [id number] Magnesium Sulfate Premix 2gm/ 50 / 50 50mL 2 gm In 50 ml @ 25 mls/hr IVPB ONCE ONE Rx#:[id number] Zosyn 3.375 GM In 0.9 % Sodium 100 / 100 Chloride (Mini-Bag +) 100 ML @ 25 mls/hr IVPB Q8HR [facility] Rx#: [id number] Potassium Chloride 10 mEq/100mL 500 / 500 200 / 200 10 meq In 100 ml @ 100 mls/hr IVPB Q1H [facility] Rx#:[id number] Sodium Phosphate 30 MMOL In 0.9 260 / 260 % Sodium Chloride 250 ML @ 43. 333 mls/hr IVPB ONCE ONE Rx#: [id number] Oral 0 / 0 0 / 0 Output: Urine 0 / 0 0 / 0 Other: Meal NPO Stool Size Small Moderate Stool Consistency liquid loose soft Stool Color Green Green # Voids 1 # Bowel Movements 1 # Bowel Movement Diapers 1 Weight 60.4 kg Blood Glucose* 81 109 106 Patient Weight 12/06/17 23:59 Weight 60.4 kg - Labs 12/06/17 04:57 12/06/17 04:57 Diabetes panel 12/05/17 12/06/17 Range/Units 17:13 04:57 Sodium 135 L 137 (136-145) mEq/L Potassium 3.9 D 3.9 (3.5-5.1) mEq/L Chloride 101 101 (98-107) mEq/L Carbon Dioxide 29 29 (23-29) mEq/L BUN 8 8 (8-23) mg/dL Creatinine 0.60 0.93 (0.60-1.20) mg/dL Glucose 116 H 125 H (70-105) mg/dL Calcium 7.5 L 7.5 L (8.6-10.3) mg/dL Calcium panel 12/05/17 12/06/17 12/06/17 Range/Units 17:13 04:57 04:57 Calcium 7.5 L 7.5 L (8.6-10.3) mg/dL Phosphorus 2.6 L (2.7-4.5) mg/dL Pituitary panel 12/05/17 12/06/17 Range/Units 17:13 04:57 Sodium 135 L 137 (136-145) mEq/L Potassium 3.9 D 3.9 (3.5-5.1) mEq/L Chloride 101 101 (98-107) mEq/L Carbon Dioxide 29 29 (23-29) mEq/L BUN 8 8 (8-23) mg/dL Creatinine 0.60 0.93 (0.60-1.20) mg/dL Glucose 116 H 125 H (70-105) mg/dL Calcium 7.5 L 7.5 L (8.6-10.3) mg/dL Adrenal panel 12/05/17 12/06/17 Range/Units 17:13 04:57 Sodium 135 L 137 (136-145) mEq/L Potassium 3.9 D 3.9 (3.5-5.1) mEq/L Chloride 101 101 (98-107) mEq/L Carbon Dioxide 29 29 (23-29) mEq/L BUN 8 8 (8-23) mg/dL Creatinine 0.60 0.93 (0.60-1.20) mg/dL Glucose 116 H 125 H (70-105) mg/dL Calcium 7.5 L 7.5 L (8.6-10.3) mg/dL - Attending Attestation I examined this patient and my medical decision-making was reviewed with the Resident Physician. I agree with the documented findings, disposition and treatment plan as described except to the extent set forth below. Reviewed the above assessment and evaluation and agree with the above plan.
[2017-12-02] MEDS ORDERED: D5% in 0.9% NACL 1,000 ML IVC SCH (17:45)
[2017-12-02] MEDS: D5% in Water 1,000 ML IVC SCH (18:10)
[2017-12-03] MEDS: D5% in Water 1,000 ML IVC SCH ×2 (03:11→14:07)
[2017-12-03] MEDS: MORPHINE SUL Oral CONC 10 MG/0.5 ML ORAL.SYG SL PRN ×2 (03:11→16:20)
[2017-12-03 04:12] LABS: BUN/Creatinine Ratio 13 (6-26); Blood Urea Nitrogen 13 mg/dL (8-23); Calcium 7.7 mg/dL (8.6-10.3); Carbon Dioxide 27 mEq/L (23-29); Chloride 101 mEq/L (98-107); Glucose 76 mg/dL (70-105); Osmolality,Calculated 275 (280-300); Potassium 4.5 mEq/L (3.5-5.1); Sodium 133 mEq/L (136-145); eGFR For African Americans > 60 (> 60); eGFR For Non-African Americans 55 (> 60)
[2017-12-03] MEDS: *HR* Heparin 5,000 UNIT/ML VIAL SQ SCH ×2 (05:22→18:48)
[2017-12-03 05:43] LABS: Basophils % 0.3 %; Eosinophils # 0.2 K/mcL (0.0-0.6); Eosinophils % 2.6 %; Hematocrit 29.1 % (35.3-44.9); Hemoglobin 8.9 g/dL (11.5-15.4); Immature Granulocytes % 0.5 % (0-4); Lymphocytes # 0.8 K/mcL (0.6-4.6); Lymphocytes % 12.4 %; Mean Corpuscular HGB Conc 30.6 g/dL (31.6-35.5); Mean Corpuscular Hemoglobin 28.9 pg (28.0-33.3); Mean Corpuscular Volume 94.5 fL (83.0-100.0); Mean Platelet Volume 10.5 fL (9.4-12.4); Monocytes # 0.3 K/mcL (0.0-1.3); Neutrophils # 5.1 K/mcL (1.6-8.9); Platelet Count 149 K/mcL (140-400); Red Blood Count 3.08 M/mcL (3.82-4.97); Red Cell Distribution Width 15.5 % (11.5-14.5); Segmented Neutrophils % 79.2 %
[2017-12-03] MEDS: Beclomethasone 80mcg MDI IH SCH ×2 (07:59→21:07)
[2017-12-03] MEDS: *HR* Digoxin 0.5 MG/2 ML AMPUL IVP SCH (08:15)
[2017-12-03] MEDS: Pantoprazole 40 MG VIAL IVP SCH (08:15)
[2017-12-03] MEDS: Menthol 9.1 MG LOZENGE PO PRN ×2 (10:30→13:23)
--- NOTE | 2017-12-03 10:35 | General Surgery Progress Note ---
<Jose Francisco Zhang - Last Filed: 12/03/17 17:54> Date of Encounter: 12/03/17 Time of Encounter: 10:31 - Assessment and Plan (1) Small bowel obstruction Current Visit: Yes Status: Acute Some expected postop tenderness. Patient stated presenting symptoms have resolved but feels sore from surgery. Has no nausea, vomiting, or bloating this morning. Has not had any bowel movements, but has had flatus. Overall much more comfortable and inquires as to when she can begin advancing diet and ultimately when she may be able to be discharged. Plan: - POD#2 s/p ex-celiotomy - KUB in AM read as dilated loops of small bowel and upper abdomen air-fluid levels, and NG tube tip in gastric fundus. - NG LIWS - NPO for now - SB follow through with gastrograffin ordered - continue IVF - PRN pain meds as needed - Antiemetics as needed - educated and encourages use of incentive spirometer - should ambulate as able Subjective Narrative: C/o non-productive cough that induces pain to incision sites. Continues to have post-op soreness, but no bloating, nausea, or vomiting. Passing flatus; no BMS yet. Has still been NPO to this point. Objective Vital Signs - Last 8 Hours Temp Pulse Resp BP Pulse Ox 12/03/17 08:15 95 12/03/17 07:59 16 95 12/03/17 07:10 97.9 F 93 17 106/64 95 12/03/17 04:00 98.3 F 81 14 102/64 98 Intake and Output 12/02/17 12/03/17 12/03/17 23:59 07:59 15:59 Intake Total 0 / 0 1000 / 1000 Output Total 250 / 250 Balance -250 / -250 1000 / 1000 Intake: IV Fluids 1000 / 1000 Dextrose 5% 1,000 ML @ 100 mls/ 1000 / 1000 hr IVC .Q10H [facility] Rx#:[id number] Oral 0 / 0 Output: Urine 100 / 100 Stool 0 / 0 Gastric Drainage 150 / 150 Other: Meal NPO Percent of Meal Consumed 0% # Urine Diapers 1 # Bowel Movements 0 # Bowel Movement Diapers 0 Weight 59.4 kg Blood Glucose* 79 76 84 Patient Weight 12/03/17 23:59 Weight 59.4 kg VITAL SIGNS: Reviewed. See [employer] GENERAL: in ED, pleasant, comfortably signing, NG tube in place on low- pressure wall section; small volume in reservoir. HEENT: Normocephalic, PER, EOMi, oropharynx pink/moist, no JVD noted. CV: b/l rad pulses 2+, RRR, no murmurs or gallops, no JVD RESPIRATORY: CTAB without wheezes, rales, or rhonchi ABD: soft, + mild tenderness, no rebound/guarding/rigidity, no peritoneal signs INCISION: clean, dry, intact without purulence/bleeding/edema/rubor/calor; no dehiscence EXTREMITY: grossly normal motor function, no pedal edema, peripheral pulses 2+ b /l NEUROLOGIC EXAM: AOx3, obeys commands, no speech deficits. PSYCHIATRIC: normal mood and affect SKIN: no gross lesions, rashes, or skin changes - Labs 12/03/17 05:18 12/03/17 03:43 Diabetes panel 12/03/17 Range/Units 03:43 Sodium 133 L (136-145) mEq/L Potassium 4.5 (3.5-5.1) mEq/L Chloride 101 (98-107) mEq/L Carbon Dioxide 27 (23-29) mEq/L BUN 13 (8-23) mg/dL Creatinine 1.01 (0.60-1.20) mg/dL Glucose 76 (70-105) mg/dL Calcium 7.7 L (8.6-10.3) mg/dL Calcium panel 12/03/17 Range/Units 03:43 Calcium 7.7 L (8.6-10.3) mg/dL Pituitary panel 12/03/17 Range/Units 03:43 Sodium 133 L (136-145) mEq/L Potassium 4.5 (3.5-5.1) mEq/L Chloride 101 (98-107) mEq/L Carbon Dioxide 27 (23-29) mEq/L BUN 13 (8-23) mg/dL Creatinine 1.01 (0.60-1.20) mg/dL Glucose 76 (70-105) mg/dL Calcium 7.7 L (8.6-10.3) mg/dL Adrenal panel 12/03/17 Range/Units 03:43 Sodium 133 L (136-145) mEq/L Potassium 4.5 (3.5-5.1) mEq/L Chloride 101 (98-107) mEq/L Carbon Dioxide 27 (23-29) mEq/L BUN 13 (8-23) mg/dL Creatinine 1.01 (0.60-1.20) mg/dL Glucose 76 (70-105) mg/dL Calcium 7.7 L (8.6-10.3) mg/dL - VTE Documentation of Mechanical Device: Intermittent pneumatic compression device Consult Discharge Plan - Plan Referrals: Sloane Murphy, [Primary Care Provider] - <Nadeem Chauhan - Last Filed: 12/06/17 07:14> Date of Encounter: 12/03/17 Objective Vital Signs - Last 8 Hours Temp Pulse Resp BP Pulse Ox 12/06/17 06:24 18 90 12/06/17 03:39 99.7 F H 103 15 114/65 91 Intake and Output 12/05/17 12/05/17 12/06/17 15:59 23:59 07:59 Intake Total 1550 / 1550 560 / 560 1000 / 1000 Output Total 0 / 0 0 / 0 Balance 1550 / 1550 560 / 560 1000 / 1000 Intake: IV Fluids 1550 / 1550 560 / 560 1000 / 1000 Dextrose 5% 1,000 ML @ 75 mls/ 1000 / 1000 1000 / 1000 hr IVC .[id number] [facility] Rx#: [id number] Magnesium Sulfate Premix 2gm/ 50 / 50 50mL 2 gm In 50 ml @ 25 mls/hr IVPB ONCE ONE Rx#:[id number] Zosyn 3.375 GM In 0.9 % Sodium 100 / 100 Chloride (Mini-Bag +) 100 ML @ 25 mls/hr IVPB Q8HR [facility] Rx#: [id number] Potassium Chloride 10 mEq/100mL 500 / 500 200 / 200 10 meq In 100 ml @ 100 mls/hr IVPB Q1H [facility] Rx#:[id number] Sodium Phosphate 30 MMOL In 0.9 260 / 260 % Sodium Chloride 250 ML @ 43. 333 mls/hr IVPB ONCE ONE Rx#: [id number] Oral 0 / 0 0 / 0 Output: Urine 0 / 0 0 / 0 Other: Meal NPO Stool Size Small Moderate Stool Consistency liquid loose soft Stool Color Green Green # Voids 1 # Bowel Movements 1 # Bowel Movement Diapers 1 Weight 60.4 kg Blood Glucose* 81 109 106 Patient Weight 05/14/18 23:59 Weight 60.4 kg - Labs 12/06/17 04:57 12/06/17 04:57 Diabetes panel 12/05/17 12/06/17 Range/Units 17:13 04:57 Sodium 135 L 137 (136-145) mEq/L Potassium 3.9 D 3.9 (3.5-5.1) mEq/L Chloride 101 101 (98-107) mEq/L Carbon Dioxide 29 29 (23-29) mEq/L BUN 8 8 (8-23) mg/dL Creatinine 0.60 0.93 (0.60-1.20) mg/dL Glucose 116 H 125 H (70-105) mg/dL Calcium 7.5 L 7.5 L (8.6-10.3) mg/dL Calcium panel 12/05/17 12/06/17 12/06/17 Range/Units 17:13 04:57 04:57 Calcium 7.5 L 7.5 L (8.6-10.3) mg/dL Phosphorus 2.6 L (2.7-4.5) mg/dL Pituitary panel 12/05/17 12/06/17 Range/Units 17:13 04:57 Sodium 135 L 137 (136-145) mEq/L Potassium 3.9 D 3.9 (3.5-5.1) mEq/L Chloride 101 101 (98-107) mEq/L Carbon Dioxide 29 29 (23-29) mEq/L BUN 8 8 (8-23) mg/dL Creatinine 0.60 0.93 (0.60-1.20) mg/dL Glucose 116 H 125 H (70-105) mg/dL Calcium 7.5 L 7.5 L (8.6-10.3) mg/dL Adrenal panel 12/05/17 12/06/17 Range/Units 17:13 04:57 Sodium 135 L 137 (136-145) mEq/L Potassium 3.9 D 3.9 (3.5-5.1) mEq/L Chloride 101 101 (98-107) mEq/L Carbon Dioxide 29 29 (23-29) mEq/L BUN 8 8 (8-23) mg/dL Creatinine 0.60 0.93 (0.60-1.20) mg/dL Glucose 116 H 125 H (70-105) mg/dL Calcium 7.5 L 7.5 L (8.6-10.3) mg/dL - Attending Attestation I examined this patient and my medical decision-making was reviewed with the Resident Physician. I agree with the documented findings, disposition and treatment plan as described except to the extent set forth below. I reviewed the above assessment and evaluation and agree with the above plan
[2017-12-03] MEDS: Ondansetron 4 MG/2 ML VIAL IVP PRN (14:07)
[2017-12-03 14:25] LABS: Magnesium 1.2 mg/dL (1.6-2.6)
--- NOTE | 2017-12-03 15:14 | Internal Med Progress Note ---
Date of Encounter: 12/03/17 Time of Encounter: 15:11 - Assessment and plan (1) Small bowel obstruction Current Visit: Yes Status: Acute Assessment and plan: Patient did not improve with conservative measures 12/01: ex celiotomy with lysis adhesions Management per Surgery team (2) PAF (paroxysmal atrial fibrillation) Current Visit: No Status: Chronic Assessment and plan: Has been in rapid atrial fib now constant. No anticoagulation due to prior hx of alveolar hemorrhage. Currently NPO, with IV digoxin, toprol prn Plan to switch to PO Cardizem when tolerating PO. (3) Diabetes mellitus, type 2 Current Visit: No Status: Chronic Assessment and plan: glucose well controlled today. She did have some episodes of hypoglycemia yesterday and so d5NS was started at 100 ml/hr Since she does have history of HF, will decrease rate at 75 ml/hr today and monitor. Qualifiers: Diabetes mellitus manager long term care insulin use: without manager long term care use Diabetes mellitus complication status: without complication Qualified Code(s): E11.9 - Type 2 diabetes mellitus without complications (4) Hypomagnesemia Current Visit: No Status: Resolved Assessment and plan: Restart Mag Ox when is eating For now will use magnesium sulfate IV. Recheck and replace as needed. (5) CKD (chronic kidney disease) stage 3, GFR 30-59 ml/min Current Visit: No Status: Chronic Assessment and plan: Avoid nephrotoxins as able. Renal dose medications Renal function improving. (6) HTN (hypertension) Current Visit: No Status: Chronic Assessment and plan: Monitoring blood pressure. HTN medications may need adjustment post op Currently unremarkable Qualifiers: Hypertension type: essential hypertension Qualified Code(s): I10 - Essential (primary) hypertension (7) Chronic respiratory failure with hypoxia Current Visit: Yes Status: Chronic Assessment and plan: Supplemental O2 as needed, no acute respiratory distress. (8) Chronic diastolic heart failure Current Visit: Yes Status: Chronic Assessment and plan: No acute issues. (9) DVT prophylaxis Current Visit: Yes Status: Acute Assessment and plan: SCDs. 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 - Time Spent With Patient Total time spent is greater than 50% in coordination of care (as documented) at patient's floor/unit and/or counseling patient: - Subjective Interval history: Patient complained of N/V this AM and diarrhea yesterday (though she does have diarrhea at baseline). She denies feverschills. 5:Complaints of abdominal fullness, states she may have eaten too much today. s/p lysis adhesions 12/01, doing well this morning. No fevers/chills, n/v, chest pain. 12/02: feeling better after lysis of adhesions 12/03: has chronic cough from excessive secretions, denies fevers/chills, n/v, sputum production. She states using I.S. every hour as recommended. - Constitutional Vitals: Temp Pulse Resp BP Pulse Ox 98.2 F 76 16 106/78 96 12/03/17 11:11 12/03/17 11:11 12/03/17 11:11 12/03/17 11:11 12/03/17 11:11 General appearance: Present: A&O X 3, answers questions appropriately Exam: - Respiratory Respiratory exam: Present: CTAB. Absent: accessory muscle use, rales, rhonchi, wheezes - Cardiovascular Cardiovascular exam: Present: irregular rhythm - GI/Abdominal GI/Abdominal exam: Present: normal bowel sounds, tenderness (near incision site , c/d/i) - Extremities Exam Extremities exam: Present: warm, radial pulses palpable and symmetrical. Absent : calf tenderness, cyanotic, pedal edema - Skin Additional comments: c/d/i incision Internal Medicine: Result - Labs CBC & Chem 7: 12/03/17 05:18 12/03/17 03:43 Labs: Short CBC 12/03/17 Range/Units 05:18 WBC 6.5 (4.3-11.1) K/mcL Hgb 8.9 L (11.5-15.4) g/dL Hct 29.1 L (35.3-44.9) % Plt Count 149 (140-400) K/mcL Neutrophils # 5.1 (1.6-8.9) K/mcL BMP 12/03/17 03:43 Sodium 133 L Potassium 4.5 Chloride 101 Carbon Dioxide 27 BUN 13 Creatinine 1.01 Glucose 76 Calcium 7.7 L - ABG Interpretation ABG results: PT/INR, D-dimer PT 12.4 Seconds (9.4-12.1) H 11/26/17 11:09 - Impressions Impressions Abdomen X-Ray 12/03/17 06:00 IMPRESSION: Recommend advancing NG tube Dilated loops of small bowel seen within the upper abdomen with air-fluid levels may be secondary to ileus versus early obstruction D/ / Fabian Cantu MD / Fabian Cantu MD Interpreting Provider: Fabian Cantu MD - VTE Documentation of Mechanical Device: Intermittent pneumatic compression device Consult Discharge Plan - Plan Referrals: Sloane Murphy DO [Primary Care Provider] -
[2017-12-03] MEDS: Levalbuterol Neb 0.63 MG/3 ML IH SCH ×2 (16:12→21:08)
[2017-12-04] MEDS: Levalbuterol Neb 0.63 MG/3 ML IH SCH ×4 (03:57→22:03)
[2017-12-04 04:39] LABS: BUN/Creatinine Ratio 15 (6-26); Blood Urea Nitrogen 13 mg/dL (8-23); Calcium 8.4 mg/dL (8.6-10.3); Carbon Dioxide 31 mEq/L (23-29); Chloride 102 mEq/L (98-107); Glucose 110 mg/dL (70-105); Osmolality,Calculated 291 (280-300); Potassium 3.5 mEq/L (3.5-5.1); Sodium 140 mEq/L (136-145); eGFR For African Americans > 60 (> 60); eGFR For Non-African Americans > 60 (> 60)
[2017-12-04] MEDS: *HR* Heparin 5,000 UNIT/ML VIAL SQ SCH (05:38)
--- NOTE | 2017-12-04 07:39 | Internal Med Progress Note ---
Date of Encounter: 12/04/17 Time of Encounter: 07:36 - Assessment and plan (1) Small bowel obstruction Current Visit: Yes Status: Acute Assessment and plan: Status post ex celiotomy on 12/01: with lysis adhesions, doing better. + BM, no acute events Management per Surgery team (2) PAF (paroxysmal atrial fibrillation) Current Visit: No Status: Chronic Assessment and plan: Has been in rapid atrial fib now constant. No anticoagulation due to prior hx of alveolar hemorrhage. Currently NPO, with IV digoxin, toprol prn Plan to switch to PO Cardizem when tolerating PO. Goal HR <110 BPM. reviewing Tele patient is <110, slightly higher average than yesterday, suspect this is related to Xopenex, will continue to monitor. (3) Diabetes mellitus, type 2 Current Visit: No Status: Chronic Assessment and plan: glucose well controlled today. She did have some episodes of hypoglycemia and so d5NS was started Rate currently at 75 ml/hr, and glucose levels unremarkable. 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 Renal dose medications No acute issues. (6) HTN (hypertension) Current Visit: No Status: Chronic Assessment and plan: Monitoring blood pressure. HTN medications may need adjustment post op Currently unremarkable Qualifiers: Hypertension type: essential hypertension Qualified Code(s): I10 - Essential (primary) hypertension (7) Chronic respiratory failure with hypoxia Current Visit: Yes Status: Chronic Assessment and plan: Supplemental O2 as needed, no acute respiratory distress. She is using I.S. as prescribed good for preventing atelectasis (8) Chronic diastolic heart failure Current Visit: Yes Status: Chronic Assessment and plan: No acute issues. She does have rales at bases but IV fluids running at maintenance rate as she is NPO. Will continue fluids at this rate until she is able to tolerate a diet. (9) DVT prophylaxis Current Visit: Yes Status: Acute Assessment and plan: SCDs. 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 - Time Spent With Patient Total time spent is greater than 50% in coordination of care (as documented) at patient's floor/unit and/or counseling patient: - Subjective Interval history: Patient complained of N/V this AM and diarrhea yesterday (though she does have diarrhea at baseline). She denies feverschills. 5:Complaints of abdominal fullness, states she may have eaten too much today. s/p lysis adhesions 12/01, doing well this morning. No fevers/chills, n/v, chest pain. 12/02: feeling better after lysis of adhesions 12/03: has chronic cough from excessive secretions, denies fevers/chills, n/v, sputum production. She states using I.S. every hour as recommended. 12/04: cough improving with cough drops, I.S., and breathing treatments. + BM, some abdominal soreness, no acute issues. - Constitutional Vitals: Temp Pulse Resp BP Pulse Ox 98.0 F 110 16 112/76 97 12/04/17 06:22 12/04/17 06:22 12/04/17 06:22 12/04/17 06:22 12/04/17 06:22 General appearance: Present: A&O X 3, answers questions appropriately Exam: Gen: NAD, AAOx3 HEENT: MMM CVS: irregularly irregular rate and rhythm, no m/r/g Lungs: fine rales throughout, good air exchange, no wheezing,no rhonchi Abd: soft, limited palpation exam since patient is post-op, non-distended, normal bowel sounds Ext: no edema, no cyanosis, pulses 2+ radial and tibial equal bilaterally. Internal Medicine: Result - Labs CBC & Chem 7: 12/03/17 05:18 12/04/17 04:00 Labs: BMP 12/03/17 12/04/17 03:43 04:00 Sodium 133 L 140 Potassium 4.5 3.5 Chloride 101 102 Carbon Dioxide 27 31 H BUN 13 13 Creatinine 1.01 0.89 Glucose 76 110 H Calcium 7.7 L 8.4 L - ABG Interpretation ABG results: PT/INR, D-dimer PT 12.4 Seconds (9.4-12.1) H 11/26/17 11:09 - Impressions Impressions Abdomen X-Ray 12/03/17 06:00 IMPRESSION: Recommend advancing NG tube Dilated loops of small bowel seen within the upper abdomen with air-fluid levels may be secondary to ileus versus early obstruction D/ / Fabian Cantu MD / Fabian Cantu MD Interpreting Provider: Fabian Cantu MD Small Bowel X-Ray 12/03/17 14:00 IMPRESSION: Dilated small bowel with progression of oral contrast into the colon. Findings are likely reflective of postoperative ileus or less likely partial obstruction. D/ / 12/04/2017 07:29:05 Andrea Gomes MD [facility] Interpreting Provider: Andrea Gomes MD - VTE Documentation of Mechanical Device: Intermittent pneumatic compression device Consult Discharge Plan - Plan Referrals: Sloane Murphy, DO [Primary Care Provider] -
[2017-12-04] MEDS: *HR* Digoxin 0.5 MG/2 ML AMPUL IVP SCH (08:11)
[2017-12-04] MEDS: Pantoprazole 40 MG VIAL IVP SCH (08:11)
--- NOTE | 2017-12-04 09:22 | General Surgery Progress Note ---
Date of Encounter: 12/04/17 Time of Encounter: 09:19 - Assessment and Plan (1) Small bowel obstruction Current Visit: Yes Status: Acute Still having expected postop tenderness. Overall, pain is improving. Continues to have flatus and bowel movements. No nausea/vomiting. No fevers. Despite SB follow-through study, given subjective improvements and limited NG return, feel it is reasonable to remove NG tube and see how patient does with ice chips ; consider advancing diet tomorrow if she tolerates this. Plan: - POD#3 s/p ex-celiotomy - KUB 12/03/17 read as dilated loops of small bowel and upper abdomen air-fluid levels, and NG tube tip in gastric fundus. - NG removed - NPO with ice chips; will reassess in the morning and advance diet as able - SB follow through with gastrograffin complete with report below - continue IVF - PRN pain meds as needed - Antiemetics as needed - Uses IS properly 6x/hr when awake - should ambulate as able SB follow-through: Dilated small bowel with progression of oral contrast into the colon. Findings are likely reflective of postoperative ileus or less likely partial obstruction. Subjective Narrative: Patient had small bowel follow-through early this AM; states had diarrhea that she associates with the contrast. Bloating discomfort better. Incision site pain improving. NPO at present with NG tube on LIWS. States has appetite. Has had nonproductive cough; has been using incentive spirometer. Afebrile overnight. No nausea, vomiting, chest pain, shortness of breath. Does have appetite. Objective Vital Signs - Last 8 Hours Temp Pulse Resp BP Pulse Ox 12/04/17 06:22 98.0 F 110 16 112/76 97 12/04/17 04:09 97.8 F 109 16 115/77 95 12/04/17 03:57 16 99 Intake and Output 12/03/17 12/04/17 12/04/17 23:59 07:59 15:59 Intake Total 110 / 110 50 / 50 0 / 0 Output Total 650 / 650 0 / 0 Balance -540 / -540 50 / 50 0 / 0 Intake: IV Fluids 50 / 50 50 / 50 Magnesium Sulfate Premix 2gm/ 50 / 50 50 / 50 50mL 2 gm In 50 ml @ 48.077 mls /hr IVPB ONCE ONE Rx#: [id number] Oral 60 / 60 0 / 0 0 / 0 Output: Urine 0 / 0 Gastric Drainage 650 / 650 0 / 0 Other: Meal NPO Breakfast Stool Size Large Copious Stool Consistency liquid liquid loose soft Stool Color Brown Green Brown Green # Voids 1 # Urine Diapers 1 # Bowel Movement Diapers 1 1 1 Weight 59.244 kg Blood Glucose* 82 96 Patient Weight 12/04/17 23:59 Weight 59.244 kg VITAL SIGNS: Reviewed. See [facility] GENERAL: in ED, pleasant, comfortably signing, NG tube in place on low- pressure wall section; small volume in reservoir. HEENT: Normocephalic, PER, EOMi, oropharynx pink/moist, no JVD noted. CV: b/l rad pulses 2+, RRR, no murmurs or gallops, no JVD RESPIRATORY: CTAB without wheezes, rales, or rhonchi; nonproductive cough heard. Demonstrates proper use of IS. ABD: soft, expected tenderness, no rebound/guarding/rigidity, no peritoneal signs INCISION: clean, dry, intact without purulence/bleeding/edema/rubor/calor; no dehiscence EXTREMITY: grossly normal motor function, no pedal edema, peripheral pulses 2+ b /l NEUROLOGIC EXAM: AOx3, obeys commands, no speech deficits. PSYCHIATRIC: normal mood and affect SKIN: no gross lesions, rashes, or skin changes - Labs 12/03/17 05:18 12/04/17 04:00 Diabetes panel 12/03/17 12/04/17 Range/Units 03:43 04:00 Sodium 133 L 140 (136-145) mEq/L Potassium 4.5 3.5 (3.5-5.1) mEq/L Chloride 101 102 (98-107) mEq/L Carbon Dioxide 27 31 H (23-29) mEq/L BUN 13 13 (8-23) mg/dL Creatinine 1.01 0.89 (0.60-1.20) mg/dL Glucose 76 110 H (70-105) mg/dL Calcium 7.7 L 8.4 L (8.6-10.3) mg/dL Calcium panel 12/03/17 12/04/17 Range/Units 03:43 04:00 Calcium 7.7 L 8.4 L (8.6-10.3) mg/dL Phosphorus 3.0 (2.7-4.5) mg/dL Pituitary panel 12/03/17 12/04/17 Range/Units 03:43 04:00 Sodium 133 L 140 (136-145) mEq/L Potassium 4.5 3.5 (3.5-5.1) mEq/L Chloride 101 102 (98-107) mEq/L Carbon Dioxide 27 31 H (23-29) mEq/L BUN 13 13 (8-23) mg/dL Creatinine 1.01 0.89 (0.60-1.20) mg/dL Glucose 76 110 H (70-105) mg/dL Calcium 7.7 L 8.4 L (8.6-10.3) mg/dL Adrenal panel 12/03/17 12/04/17 Range/Units 03:43 04:00 Sodium 133 L 140 (136-145) mEq/L Potassium 4.5 3.5 (3.5-5.1) mEq/L Chloride 101 102 (98-107) mEq/L Carbon Dioxide 27 31 H (23-29) mEq/L BUN 13 13 (8-23) mg/dL Creatinine 1.01 0.89 (0.60-1.20) mg/dL Glucose 76 110 H (70-105) mg/dL Calcium 7.7 L 8.4 L (8.6-10.3) mg/dL - VTE Documentation of Mechanical Device: Intermittent pneumatic compression device Consult Discharge Plan - Plan Referrals: Sloane Murphy DO [Primary Care Provider] -
[2017-12-04] MEDS: Beclomethasone 80mcg MDI IH SCH ×2 (10:03→22:03)
[2017-12-04] MEDS: D5% in Water 1,000 ML IVC SCH ×2 (12:53→22:38)
[2017-12-04] MEDS: Menthol 9.1 MG LOZENGE PO PRN ×2 (14:00→18:06)
[2017-12-04] MEDS: MORPHINE SUL Oral CONC 10 MG/0.5 ML ORAL.SYG SL PRN (21:20)
[2017-12-05] MEDS: D5% in Water 1,000 ML IVC SCH ×2 (00:59→15:25)
[2017-12-05] MEDS: Levalbuterol Neb 0.63 MG/3 ML IH SCH ×4 (03:40→21:38)
[2017-12-05 03:55] LABS: Basophils % 0.3 %; Eosinophils # 0.1 K/mcL (0.0-0.6); Eosinophils % 1.6 %; Hematocrit 27.8 % (35.3-44.9); Hemoglobin 8.9 g/dL (11.5-15.4); Immature Granulocytes % 0.3 % (0-4); Immature Platelets 3.9 % (1.1-6.1); Lymphocytes # 0.8 K/mcL (0.6-4.6); Lymphocytes % 12.5 %; Mean Corpuscular Hemoglobin 30.2 pg (28.0-33.3); Mean Corpuscular Volume 94.2 fL (83.0-100.0); Mean Platelet Volume 10.5 fL (9.4-12.4); Monocytes # 0.3 K/mcL (0.0-1.3); Monocytes % 5.3 %; Neutrophils # 4.9 K/mcL (1.6-8.9); Platelet Count 162 K/mcL (140-400); Red Blood Count 2.95 M/mcL (3.82-4.97); Red Cell Distribution Width 15.3 % (11.5-14.5)
[2017-12-05 05:07] LABS: BUN/Creatinine Ratio 16 (6-26); Blood Urea Nitrogen 10 mg/dL (8-23); Calcium 7.4 mg/dL (8.6-10.3); Carbon Dioxide 34 mEq/L (23-29); Chloride 100 mEq/L (98-107); Glucose 79 mg/dL (70-105); Osmolality,Calculated 282 (280-300); Potassium 3.1 mEq/L (3.5-5.1); Sodium 137 mEq/L (136-145); eGFR For African Americans > 60 (> 60); eGFR For Non-African Americans > 60 (> 60)
[2017-12-05] MEDS: Pantoprazole 40 MG VIAL IVP SCH (08:13)
[2017-12-05] MEDS: *HR* Digoxin 0.5 MG/2 ML AMPUL IVP SCH (08:14)
--- NOTE | 2017-12-05 08:58 | General Surgery Progress Note ---
Date of Encounter: 12/05/17 Time of Encounter: 07:15 - Assessment and Plan (1) Small bowel obstruction Current Visit: Yes Status: Acute Abdominal pain continues to improve. Still has expected postop soreness or incision site. Denies any bloating, nausea, vomiting. Has had loose stools and plentiful flatus. Abdominal series repeated this morning demonstrated significant pocket of free air under the right angel diaphragm. Dr. Arnold was informed of this and he contacted Dr. Chauhan to discuss ex-celiotomy on 12/01/17. CT with oral contrast demonstrates free passage of oral contrast through to the colon without any extravasation. Though we are several days postop, free air attributed to relaxed bowel wall and slow rate of absorption. Given clinical appearance of patient and clear improvement over previous days, intestinal perforation highly unlikely. Patient does states she feels significantly better and is eager to eat. Starting full liquid diet today. Plan: - POD#4 s/p ex-celiotomy - KUB 12/03/17 read as dilated loops of small bowel and upper abdomen air-fluid levels, and NG tube tip in gastric fundus. - NG removed 12/04/17 - Abd Series done this AM with critical results below - oral contrasted abdominal CT results as below - vital signs are stable with consistent mild tachycardia in the low 100s. - No leukocytosis on CBC and hemoglobin stable from previous. - Given overall benign clinical picture, perforation of hollow viscus highly unlikely; will initiate full liquid diet and see how patient does in the morning - CBC qAM - low on potassium, magnesium, and phosphate; IV correction in progress - monitor electrolytes daily and continue to correct as needed - continue IVF SB follow-through 12/04/17: Dilated small bowel with progression of oral contrast into the colon. Findings are likely reflective of postoperative ileus or less likely partial obstruction. Abd XR Series 12/05/17: Received call from [facility] today from a Dr. Miller; reports critical result of abdominal series today citing "pneumoperitoneum". This is readily evident with right sub-diaphragmatic free air. CT Abd w/oral 12/05/17: Dilated small bowel loops with some decompressed small bowel loops in the pelvis however contrast reaches the rectum and patient has surgery 4 days ago and is clinically moving bowels and passing flatus. Findings would be most compatible with resolving postoperative small bowel ileus. Free intraperitoneal air and some free fluid in the pelvis attributed to recent laparotomy. Subjective Narrative: NG tube removed yesterday. Patient tolerated ice chips overnight. No recurrent nausea, vomiting, abdominal discomfort. Explicitly denies bloating. Has been able to pass flatus, but no bowel movements; has not eaten a substantial meal in several days. Electrolytes checked and patient has low potassium, magnesium, and phosphate. Continues to have cough and abdominal wall soreness from this, but denies any overnight fevers or shortness of breath. Objective Vital Signs - Last 8 Hours Temp Pulse Resp BP Pulse Ox 12/05/17 07:40 99.8 F H 106 19 118/71 93 12/05/17 03:42 17 97 12/05/17 03:12 99.2 F 103 17 115/77 97 Intake and Output 12/04/17 12/05/17 12/05/17 23:59 07:59 15:59 Intake Total 0 / 0 1000 / 1000 Output Total 0 / 0 0 / 0 Balance 0 / 0 1000 / 1000 Intake: IV Fluids 1000 / 1000 Dextrose 5% 1,000 ML @ 75 mls/ 1000 / 1000 hr IVC .[id number] [facility] TO [facility] Rx#: [id number] Oral 0 / 0 0 / 0 Output: Urine 0 / 0 0 / 0 Other: Meal Dinner Percent of Meal Consumed 0% Stool Size Copious Stool Consistency liquid Stool Color Green # Bowel Movement Diapers 1 Weight 58.5 kg Blood Glucose* 101 73 Patient Weight 12/05/17 23:59 Weight 58.5 kg VITAL SIGNS: Reviewed. See [facility] GENERAL: no acute distress, comfortably supine, conversational, answers questions appropriately HEENT: oral mucosa moist, no JVD noted, nares clear CV: mildly tachycardic at approximately 100 bpm, regular rhythm without murmurs RESPIRATORY: CTAB without wheezes, rales, or rhonchi; nonproductive cough heard. ABD: soft, expected tenderness, no rebound/guarding/rigidity, no peritoneal signs INCISION: clean, dry, intact without purulence/bleeding/edema/rubor/calor; no dehiscence EXTREMITY: grossly normal motor function, no pedal edema, peripheral pulses 2+ b /l NEUROLOGIC EXAM: AOx3, obeys commands, no speech deficits. PSYCHIATRIC: normal mood and affect SKIN: no gross lesions, rashes, or skin changes - Labs 12/05/17 03:30 12/05/17 03:30 Diabetes panel 12/05/17 Range/Units 03:30 Sodium 137 (136-145) mEq/L Potassium 3.1 L (3.5-5.1) mEq/L Chloride 100 (98-107) mEq/L Carbon Dioxide 34 H (23-29) mEq/L BUN 10 (8-23) mg/dL Creatinine 0.63 (0.60-1.20) mg/dL Glucose 79 (70-105) mg/dL Calcium 7.4 L (8.6-10.3) mg/dL Calcium panel 12/05/17 12/05/17 Range/Units 03:30 03:30 Calcium 7.4 L (8.6-10.3) mg/dL Phosphorus 2.4 L (2.7-4.5) mg/dL Pituitary panel 12/05/17 Range/Units 03:30 Sodium 137 (136-145) mEq/L Potassium 3.1 L (3.5-5.1) mEq/L Chloride 100 (98-107) mEq/L Carbon Dioxide 34 H (23-29) mEq/L BUN 10 (8-23) mg/dL Creatinine 0.63 (0.60-1.20) mg/dL Glucose 79 (70-105) mg/dL Calcium 7.4 L (8.6-10.3) mg/dL Adrenal panel 12/05/17 Range/Units 03:30 Sodium 137 (136-145) mEq/L Potassium 3.1 L (3.5-5.1) mEq/L Chloride 100 (98-107) mEq/L Carbon Dioxide 34 H (23-29) mEq/L BUN 10 (8-23) mg/dL Creatinine 0.63 (0.60-1.20) mg/dL Glucose 79 (70-105) mg/dL Calcium 7.4 L (8.6-10.3) mg/dL - VTE Documentation of Mechanical Device: Intermittent pneumatic compression device Consult Discharge Plan - Plan Referrals: Sloane Murphy DO [Primary Care Provider] -
--- NOTE | 2017-12-05 10:21 | Internal Med Progress Note ---
Date of Encounter: 12/05/17 Time of Encounter: 10:18 - Assessment and plan (1) Small bowel obstruction Current Visit: Yes Status: Acute Assessment and plan: Status post ex celiotomy on 12/01: with lysis adhesions A follow-up KUB this morning showed pneumoperitoneum. Patient is in no acute distress this morning Surgery notified of these findings Stat CT abdomen/pelvis with oral contrast is ordred. (2) PAF (paroxysmal atrial fibrillation) Current Visit: No Status: Chronic Assessment and plan: Has been in rapid atrial fib now constant. No anticoagulation due to prior hx of alveolar hemorrhage. Currently NPO, with IV digoxin, toprol prn Plan to switch to PO Cardizem when tolerating PO. Goal HR <110 BPM. reviewing Tele Patient states she felt like her defibrillator went off this morning. Will discuss with Cardiology. (3) Diabetes mellitus, type 2 Current Visit: No Status: Chronic Assessment and plan: glucose well controlled today. She did have some episodes of hypoglycemia and so d5NS was started Rate currently at 75 ml/hr, and glucose levels unremarkable. Qualifiers: Qualified Code(s): E11.9 - Type 2 diabetes mellitus without complications (4) Hypomagnesemia Current Visit: No Status: Resolved Assessment and plan: Restart Mag Ox when is eating Replace as needed Give mg sulfate today (5) CKD (chronic kidney disease) stage 3, GFR 30-59 ml/min Current Visit: No Status: Chronic Assessment and plan: Avoid nephrotoxins as able. Renal dose medications No acute issues. (6) HTN (hypertension) Current Visit: No Status: Chronic Assessment and plan: Monitoring blood pressure. HTN medications may need adjustment post op Currently unremarkable Qualifiers: Qualified Code(s): I10 - Essential (primary) hypertension (7) Chronic respiratory failure with hypoxia Current Visit: Yes Status: Chronic Assessment and plan: Supplemental O2 as needed, no acute respiratory distress. She is using I.S. as prescribed good for preventing atelectasis (8) Chronic diastolic heart failure Current Visit: Yes Status: Chronic Assessment and plan: No acute issues. She does have rales at bases but IV fluids running at maintenance rate as she is NPO. Will continue fluids at this rate until she is able to tolerate a diet. (9) DVT prophylaxis Current Visit: Yes Status: Acute Assessment and plan: SCDs. 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 - Time Spent With Patient Total time spent is greater than 50% in coordination of care (as documented) at patient's floor/unit and/or counseling patient: - Subjective Interval history: Patient complained of N/V this AM and diarrhea yesterday (though she does have diarrhea at baseline). She denies feverschills. 5:Complaints of abdominal fullness, states she may have eaten too much today. s/p lysis adhesions 12/01, doing well this morning. No fevers/chills, n/v, chest pain. 12/02: feeling better after lysis of adhesions 12/03: has chronic cough from excessive secretions, denies fevers/chills, n/v, sputum production. She states using I.S. every hour as recommended. 12/04: cough improving with cough drops, I.S., and breathing treatments. + BM, some abdominal soreness, no acute issues. 12/05: Patient states she feels like her defibrillator went off today. She did not have any chest pain or shortness of breath prior to that. Currently she complains of no cp/sob, n/v, palpitations. A KUB done this morning showed a pneumoperitoneum beneath right hemidiaphragm. A stat CT abdomen/pelvis is pending. - Constitutional Vitals: Temp Pulse Resp BP Pulse Ox 97.8 F 106 19 118/71 93 12/05/17 10:13 12/05/17 07:40 12/05/17 07:40 12/05/17 07:40 12/05/17 07:40 General appearance: Present: A&O X 3, answers questions appropriately Internal Medicine: Result - Labs CBC & Chem 7: 12/05/17 03:30 12/05/17 03:30 Labs: Short CBC 12/05/17 Range/Units 03:30 WBC 6.1 (4.3-11.1) K/mcL Hgb 8.9 L (11.5-15.4) g/dL Hct 27.8 L (35.3-44.9) % Plt Count 162 (140-400) K/mcL Neutrophils # 4.9 (1.6-8.9) K/mcL BMP 12/05/17 03:30 Sodium 137 Potassium 3.1 L Chloride 100 Carbon Dioxide 34 H BUN 10 Creatinine 0.63 Glucose 79 Calcium 7.4 L - ABG Interpretation ABG results: PT/INR, D-dimer PT 12.4 Seconds (9.4-12.1) H 11/26/17 11:09 - Impressions Impressions Chest/Abdomen X-ray 12/05/17 06:00 IMPRESSION: 1. Pneumoperitoneum is seen beneath the right hemidiaphragm. 2. The contrast from the prior small bowel follow-through is seen retained in the colon. 3. Prominent air-filled loops of bowel throughout the abdomen, which may be related to an ileus versus a partial small bowel obstruction. 4. Patchy interstitial opacities in the lungs, left greater than right. Findings were discussed with Dr. Zhang on 12/05/2017 at 9:20 am. D/ / Ethan Bah MD / Ethan Bah MD Interpreting Provider: Ethan Bah MD - VTE Documentation of Mechanical Device: Intermittent pneumatic compression device Consult Discharge Plan - Plan Referrals: Sloane Murphy DO [Primary Care Provider] -
[2017-12-05] MEDS: Beclomethasone 80mcg MDI IH SCH ×2 (10:39→21:38)
[2017-12-05 17:20] LABS: Basophils % 0.3 %; Hemoglobin 9.4 g/dL (11.5-15.4); Immature Granulocytes % 0.4 % (0-4); Lymphocytes # 0.7 K/mcL (0.6-4.6); Lymphocytes % 9.2 %; Mean Corpuscular HGB Conc 32.4 g/dL (31.6-35.5); Mean Corpuscular Hemoglobin 29.8 pg (28.0-33.3); Mean Corpuscular Volume 92.1 fL (83.0-100.0); Mean Platelet Volume 10.5 fL (9.4-12.4); Monocytes # 0.4 K/mcL (0.0-1.3); Monocytes % 5.7 %; Neutrophils # 6.1 K/mcL (1.6-8.9); Platelet Count 159 K/mcL (140-400); Red Blood Count 3.15 M/mcL (3.82-4.97); Red Cell Distribution Width 15.3 % (11.5-14.5); Segmented Neutrophils % 84.4 %
[2017-12-05 17:48] LABS: BUN/Creatinine Ratio 13 (6-26); Blood Urea Nitrogen 8 mg/dL (8-23); Calcium 7.5 mg/dL (8.6-10.3); Carbon Dioxide 29 mEq/L (23-29); Chloride 101 mEq/L (98-107); Glucose 116 mg/dL (70-105); Osmolality,Calculated 279 (280-300); Potassium 3.9 mEq/L (3.5-5.1); Sodium 135 mEq/L (136-145); eGFR For African Americans > 60 (> 60); eGFR For Non-African Americans > 60 (> 60)
[2017-12-05] MEDS: Piperacillin/Tazobactam 3.375 GM in 0.9 % Sodium Chloride Mini Bag 100 ML IVPB SCH (18:43)
[2017-12-05] MEDS: GuaiFENesin Liq 200 MG/10 ML UDC PO PRN (18:52)
[2017-12-05] MEDS: MORPHINE SUL Oral CONC 10 MG/0.5 ML ORAL.SYG SL PRN (20:51)
[2017-12-05] MEDS: Ondansetron 4 MG/2 ML VIAL IVP PRN (20:51)
[2017-12-06] MEDS ORDERED: Piperacillin/Tazobactam 3.375 GM in 0.9 % Sodium Chloride Mini Bag 100 ML IVPB SCH
[2017-12-06] MEDS: Piperacillin/Tazobactam 3.375 GM in 0.9 % Sodium Chloride Mini Bag 100 ML IVPB SCH ×4 (00:17→23:34)
[2017-12-06] MEDS: Ondansetron 4 MG/2 ML VIAL IVP PRN (01:34)
[2017-12-06] MEDS ORDERED: Ondansetron 4 MG/2 ML VIAL IVP ONE (04:09)
[2017-12-06] MEDS: Levalbuterol Neb 0.63 MG/3 ML IH SCH ×4 (04:24→22:49)
[2017-12-06] MEDS: MORPHINE SUL Oral CONC 10 MG/0.5 ML ORAL.SYG SL PRN (04:49)
[2017-12-06 05:11] LABS: Basophils % 0.2 %; Hematocrit 29.9 % (35.3-44.9); Hemoglobin 9.6 g/dL (11.5-15.4); Immature Granulocytes % 0.6 % (0-4); Lymphocytes % 8.2 %; Mean Corpuscular HGB Conc 32.1 g/dL (31.6-35.5); Mean Corpuscular Hemoglobin 29.4 pg (28.0-33.3); Mean Corpuscular Volume 91.7 fL (83.0-100.0); Mean Platelet Volume 10.6 fL (9.4-12.4); Monocytes # 0.8 K/mcL (0.0-1.3); Monocytes % 6.6 %; Neutrophils # 10.1 K/mcL (1.6-8.9); Nucleated Red Blood Cells 0.2 /100 WBC (0); Platelet Count 185 K/mcL (140-400); Red Blood Count 3.26 M/mcL (3.82-4.97); Red Cell Distribution Width 15.4 % (11.5-14.5); Segmented Neutrophils % 84.4 %
[2017-12-06 05:36] LABS: BUN/Creatinine Ratio 9 (6-26); Blood Urea Nitrogen 8 mg/dL (8-23); Calcium 7.5 mg/dL (8.6-10.3); Carbon Dioxide 29 mEq/L (23-29); Chloride 101 mEq/L (98-107); Glucose 125 mg/dL (70-105); Osmolality,Calculated 284 (280-300); Potassium 3.9 mEq/L (3.5-5.1); Sodium 137 mEq/L (136-145); eGFR For African Americans > 60 (> 60); eGFR For Non-African Americans > 60 (> 60)
[2017-12-06] MEDS: D5% in Water 1,000 ML IVC SCH ×2 (06:53→12:54)
--- NOTE | 2017-12-06 07:07 | General Surgery Progress Note ---
<Jose Francisco Zhang - Last Filed: 12/07/17 10:14> Date of Encounter: 12/07/17 Time of Encounter: 07:07 - Assessment and Plan (1) Small bowel obstruction Current Visit: Yes Status: Acute Doing fine yesterday prior to advancement of full liquid diet; develops new symptoms of bloating, nausea, vomiting several hours after initiating. NG tube was removed on 12/04/2017. Plan: - POD#5 s/p ex-celiotomy - afebrile temperature elevations, other VSS/normal - new leukocytosis today at 12.0k; on Zosyn per primary team - Hgb stable - CBC qAM - phosphorus (borderline - 2.6) and magnesium (1.4); correcting Mg++ - electrolytes QAM and correct as needed - continue IVF - Initiating TPN; PICC order placed and Nutrition notified - LFTs and lipase within normal limits KUB 12/03/17: dilated loops of small bowel and upper abdomen air-fluid levels, and NG tube tip in gastric fundus. SB follow-through 12/04/17: Dilated small bowel with progression of oral contrast into the colon. Findings are likely reflective of postoperative ileus or less likely partial obstruction. Abd XR Series 12/05/17: Received call from [facility] today from a Dr. Miller; reports critical result of abdominal series today citing "pneumoperitoneum". CT Abd w/oral 12/05/17: Dilated small bowel loops with some decompressed small bowel loops in the pelvis however contrast reaches the rectum and patient has surgery 4 days ago and is clinically moving bowels and passing flatus. Findings would be most compatible with resolving postoperative small bowel ileus. Free intraperitoneal air and some free fluid in the pelvis attributed to recent laparotomy. Subjective Narrative: See yesterday's no regarding abnormal abdominal series. Has been having bowel movements and flatus. Patient was advanced to full liquid diet. Patient tolerated this for several hours, but began to feel sick to her stomach around 6 PM when she states she had no appetite. Patient says that she began to feel bloated, generalized abdominal pain most vocally at the right upper quadrant, and has vomited times 1. Denies any blood in vomitus. Patient also has been having a cough that is becoming productive of clear off white sputum. Chest x-ray obtained 12/05/2017 demonstrated left lower lung patchy airspace opacities. She was started on Zosyn by the hospitalist service. Has also had borderline febrile temperatures. Other vitals have been stable. Objective Vital Signs - Last 8 Hours Temp Pulse Resp BP Pulse Ox 12/06/17 06:24 18 90 12/06/17 03:39 99.7 F H 103 15 114/65 91 Intake and Output 12/05/17 12/05/17 12/06/17 15:59 23:59 07:59 Intake Total 1550 / 1550 560 / 560 1000 / 1000 Output Total 0 / 0 0 / 0 Balance 1550 / 1550 560 / 560 1000 / 1000 Intake: IV Fluids 1550 / 1550 560 / 560 1000 / 1000 Dextrose 5% 1,000 ML @ 75 mls/ 1000 / 1000 1000 / 1000 hr IVC [facility][id number] [facility] Rx#: [id number] Magnesium Sulfate Premix 2gm/ 50 / 50 50mL 2 gm In 50 ml @ 25 mls/hr IVPB ONCE ONE Rx#:[id number] Zosyn 3.375 GM In 0.9 % Sodium 100 / 100 Chloride (Mini-Bag +) 100 ML @ 25 mls/hr IVPB Q8HR [facility] Rx#: [id number] Potassium Chloride 10 mEq/100mL 500 / 500 200 / 200 10 meq In 100 ml @ 100 mls/hr IVPB Q1H [facility] Rx#:[id number] Sodium Phosphate 30 MMOL In 0.9 260 / 260 % Sodium Chloride 250 ML @ 43. 333 mls/hr IVPB ONCE ONE Rx#: [id number] Oral 0 / 0 0 / 0 Output: Urine 0 / 0 0 / 0 Other: Meal NPO Stool Size Small Moderate Stool Consistency liquid loose soft Stool Color Green Green # Voids 1 # Bowel Movements 1 # Bowel Movement Diapers 1 Weight 60.4 kg Blood Glucose* 81 109 106 Patient Weight 12/06/17 23:59 Weight 60.4 kg VITAL SIGNS: Reviewed. [facility] GENERAL: appears uncomfortable, costs frequently producing sputum into emesis bag, answers questions appropriately HEENT: oral mucosa moist, no JVD noted, nares clear CV: mildly tachycardic at approximately 100 bpm, regular rhythm without murmurs RESPIRATORY: CTAB without wheezes, rales, or rhonchi; nonproductive cough heard. ABD: somewhat distended more so on the right than left, bowel sounds slow/quiet , tender primarily to the right upper quadrant. Negative heel jar. INCISION: intact with no signs of infection EXTREMITY: grossly normal motor function, no pedal edema, peripheral pulses 2+ b /l NEUROLOGIC EXAM: AOx3, obeys commands, no speech deficits. PSYCHIATRIC: normal mood and affect SKIN: no gross lesions, rashes, or skin changes - Labs 12/07/17 04:00 12/07/17 04:00 Diabetes panel 12/05/17 12/06/17 Range/Units 17: 04:57 Sodium 135 L 137 (136-145) mEq/L Potassium 3.9 D 3.9 (3.5-5.1) mEq/L Chloride 101 101 (98-107) mEq/L Carbon Dioxide 29 29 (23-29) mEq/L BUN 8 8 (8-23) mg/dL Creatinine 0.60 0.93 (0.60-1.20) mg/dL Glucose 116 H 125 H (70-105) mg/dL Calcium 7.5 L 7.5 L (8.6-10.3) mg/dL Calcium panel 12/05/17 12/06/17 12/06/17 Range/Units 17: 04:57 04:57 Calcium 7.5 L 7.5 L (8.6-10.3) mg/dL Phosphorus 2.6 L (2.7-4.5) mg/dL Pituitary panel 12/05/17 12/06/17 Range/Units 17: 04:57 Sodium 135 L 137 (136-145) mEq/L Potassium 3.9 D 3.9 (3.5-5.1) mEq/L Chloride 101 101 (98-107) mEq/L Carbon Dioxide 29 29 (23-29) mEq/L BUN 8 8 (8-23) mg/dL Creatinine 0.60 0.93 (0.60-1.20) mg/dL Glucose 116 H 125 H (70-105) mg/dL Calcium 7.5 L 7.5 L (8.6-10.3) mg/dL Adrenal panel 12/05/17 12/06/17 Range/Units 17: 04:57 Sodium 135 L 137 (136-145) mEq/L Potassium 3.9 D 3.9 (3.5-5.1) mEq/L Chloride 101 101 (98-107) mEq/L Carbon Dioxide 29 29 (23-29) mEq/L BUN 8 8 (8-23) mg/dL Creatinine 0.60 0.93 (0.60-1.20) mg/dL Glucose 116 H 125 H (70-105) mg/dL Calcium 7.5 L 7.5 L (8.6-10.3) mg/dL - VTE Documentation of Mechanical Device: Intermittent pneumatic compression device Consult Discharge Plan - Plan Referrals: Sloane Murphy DO [Primary Care Provider] - <Nadeem Chauhan - Last Filed: 12/08/17 06:43> Date of Encounter: 12/06/17 Objective Vital Signs - Last 8 Hours Temp Pulse Resp BP Pulse Ox 12/08/17 04:13 18 91 12/08/17 03:59 98.2 F 71 15 94/52 92 12/07/17 23:31 98.9 F 81 14 119/63 88 Intake and Output 12/07/17 12/07/17 12/08/17 15:59 23:59 07:59 Intake Total 1100 / 1100 100 / 100 0 / 0 Output Total 0 / 0 450 / 450 Balance 1100 / 1100 100 / 100 -450 / -450 Intake: IV Fluids 1100 / 1100 100 / 100 0.9 % Sodium Chloride 1,000 ML 1000 / 1000 @ 55 mls/hr IVC .[id number] [facility] Rx #:[id number] Zosyn 3.375 GM In 0.9 % Sodium 100 / 100 100 / 100 Chloride (Mini-Bag +) 100 ML @ 25 mls/hr IVPB Q8HR [facility] Rx#: [id number] Oral 0 / 0 0 / 0 Output: Urine 0 / 0 450 / 450 Other: Meal NPO BREAKFAST Stool Size Moderate Moderate Stool Consistency loose liquid Stool Characteristics Mucoid Stool Color Brown Green # Voids 1 # Urine Diapers 1 # Bowel Movements 1 # Bowel Movement Diapers 1 Weight 60.8 kg Blood Glucose* 148 143 152 Patient Weight 12/08/17 23:59 Weight 60.8 kg - Labs 12/08/17 04:00 12/08/17 04:00 Diabetes panel 12/08/17 Range/Units 04:00 Sodium 138 (136-145) mEq/L Potassium 3.3 L (3.5-5.1) mEq/L Chloride 105 (98-107) mEq/L Carbon Dioxide 30 H (23-29) mEq/L BUN 13 (8-23) mg/dL Creatinine 0.83 (0.60-1.20) mg/dL Glucose 140 H (70-105) mg/dL Calcium 7.4 L (8.6-10.3) mg/dL Calcium panel 12/08/17 12/08/17 Range/Units 04:00 04:00 Calcium 7.4 L (8.6-10.3) mg/dL Phosphorus 2.4 L (2.7-4.5) mg/dL Pituitary panel 12/08/17 Range/Units 04:00 Sodium 138 (136-145) mEq/L Potassium 3.3 L (3.5-5.1) mEq/L Chloride 105 (98-107) mEq/L Carbon Dioxide 30 H (23-29) mEq/L BUN 13 (8-23) mg/dL Creatinine 0.83 (0.60-1.20) mg/dL Glucose 140 H (70-105) mg/dL Calcium 7.4 L (8.6-10.3) mg/dL Adrenal panel 12/08/17 Range/Units 04:00 Sodium 138 (136-145) mEq/L Potassium 3.3 L (3.5-5.1) mEq/L Chloride 105 (98-107) mEq/L Carbon Dioxide 30 H (23-29) mEq/L BUN 13 (8-23) mg/dL Creatinine 0.83 (0.60-1.20) mg/dL Glucose 140 H (70-105) mg/dL Calcium 7.4 L (8.6-10.3) mg/dL - Attending Attestation I examined this patient and my medical decision-making was reviewed with the Resident Physician. I agree with the documented findings, disposition and treatment plan as described except to the extent set forth below. I reviewed the above assessment and evaluation and agree with the above plan. Patient has still not had an opportunity to tolerate by mouth diet so we will start TPN (request PICC line placement this afternoon). Ice chips and sips of liquids okay at this time. Await return of bowel function. Will start Reglan IV as well.
[2017-12-06 07:17] LABS: Magnesium 1.4 mg/dL (1.6-2.6)
[2017-12-06] MEDS ORDERED: Ketorolac 15 MG/ML VIAL IVP ONE (07:39)
[2017-12-06 08:16] LABS: Alanine Aminotransferase 9 Units/L (7-52); Albumin 2.4 g/dL (3.5-5.7); Alkaline Phosphatase 60 Units/L (34-104); Aspartate Amino Transferase 18 Units/L (13-39); Bilirubin,Direct 0.2 mg/dL (0.0-0.2); Bilirubin,Indirect 0.4 mg/dL (0.0-1.2); Bilirubin,Total 0.6 mg/dL (0.3-1.0); Globulin 2.3 g/dL (2.4-3.5); Lipase 16 Units/L (11-82); Total Protein 4.7 g/dL (6.4-8.9)
[2017-12-06] MEDS: Pantoprazole 40 MG VIAL IVP SCH (08:42)
[2017-12-06] MEDS: *HR* Digoxin 0.5 MG/2 ML AMPUL IVP SCH (08:42)
[2017-12-06] MEDS ORDERED: Lidocaine -MPF 1% 5 ML AMPUL INFILT ONE (09:43)
--- NOTE | 2017-12-06 10:31 | Internal Med Progress Note ---
Date of Encounter: 12/06/17 Time of Encounter: 10:29 - Assessment and plan (1) Small bowel obstruction Current Visit: Yes Status: Acute Assessment and plan: Status post ex celiotomy on 12/01: with lysis adhesions Patient is in no acute distress this morning TPN initiated today per Surgery (2) PAF (paroxysmal atrial fibrillation) Current Visit: No Status: Chronic Assessment and plan: Known history of atrial fibrillation No anticoagulation due to prior hx of alveolar hemorrhage. Cardiology was consulted for medication management. Digoxin IV was started, and plan is to start PO Cardizem when she is tolerating diet. Continue IV digoxin, give IV lopressor prn. (3) HAP (hospital-acquired pneumonia) Current Visit: Yes Status: Suspected Assessment and plan: Suspicion based on patient cough with sputum, leukocytosis. She was having gradually elevated temperatures as well and CT abdomen/pelvis yesterday showed no acute process. A chest x-ray yesterday was negative but there is possibility there is early developing pneumonia. She was high risk for sepsis and so blood cultures were obtained. Given hospitalization we will treat with vancomycin and Zosyn and monitor closely. (4) Diabetes mellitus, type 2 Current Visit: No Status: Chronic Assessment and plan: glucose well controlled today. She did have some episodes of hypoglycemia and so d5NS was started Qualifiers: Diabetes mellitus snf insulin use: without ferry terminal agent use Diabetes mellitus complication status: without complication Qualified Code(s): E11.9 - Type 2 diabetes mellitus without complications (5) Hypomagnesemia Current Visit: No Status: Resolved Assessment and plan: Restart Mag Ox when is eating Continue to replace TPN being started today (6) CKD (chronic kidney disease) stage 3, GFR 30-59 ml/min Current Visit: No Status: Chronic Assessment and plan: Avoid nephrotoxins as able. Renal dose medications No acute issues. (7) HTN (hypertension) Current Visit: No Status: Chronic Assessment and plan: Monitoring blood pressure. HTN medications may need adjustment post op Currently unremarkable Qualifiers: Hypertension type: essential hypertension Qualified Code(s): I10 - Essential (primary) hypertension (8) Chronic respiratory failure with hypoxia Current Visit: Yes Status: Chronic Assessment and plan: Supplemental O2 as needed, no acute respiratory distress. She is using I.S. as prescribed good for preventing atelectasis (9) Chronic diastolic heart failure Current Visit: Yes Status: Chronic Assessment and plan: No acute issues. She does have rales at bases but IV fluids running at maintenance rate as she is NPO. Will continue fluids at this rate until she is able to tolerate a diet. (10) DVT prophylaxis Current Visit: Yes Status: Acute Assessment and plan: SCDs. 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 - Time Spent With Patient Total time spent is greater than 50% in coordination of care (as documented) at patient's floor/unit and/or counseling patient: - Subjective Interval history: Patient complained of N/V this AM and diarrhea yesterday (though she does have diarrhea at baseline). She denies feverschills. 5:Complaints of abdominal fullness, states she may have eaten too much today. s/p lysis adhesions 12/01, doing well this morning. No fevers/chills, n/v, chest pain. 12/02: feeling better after lysis of adhesions 12/03: has chronic cough from excessive secretions, denies fevers/chills, n/v, sputum production. She states using I.S. every hour as recommended. 12/04: cough improving with cough drops, I.S., and breathing treatments. + BM, some abdominal soreness, no acute issues. 12/05: Patient states she feels like her defibrillator went off today. She did not have any chest pain or shortness of breath prior to that. Currently she complains of no cp/sob, n/v, palpitations. A KUB done this morning showed a pneumoperitoneum beneath right hemidiaphragm. Stat CT abdomen/pelvis reviewed by Radiology and Surgery, no immediate Surgery was warranted based on findings. 12/06: patient did have some feelings of malaise yesterday evening and cough is worsening. CXR done yesterday was negative. Robitussin has helped cough. - Constitutional Vitals: Temp Pulse Resp BP Pulse Ox 98.1 F 108 18 117/63 90 12/06/17 07:20 12/06/17 07:20 12/06/17 07:20 12/06/17 07:20 12/06/17 07:20 General appearance: Present: A&O X 3, answers questions appropriately Exam: CVS: regular rate, irregular rhythm Lungs: Course breath sounds throughout Abd: soft, normal bowel sounds, incision c/d/i Ext: no edema. Internal Medicine: Result - Labs CBC & Chem 7: 12/06/17 04:57 12/06/17 04:57 Labs: Short CBC 12/05/17 12/06/17 Range/Units 17:11 04:57 WBC 7.3 12.0 H D (4.3-11.1) K/mcL Hgb 9.4 L 9.6 L (11.5-15.4) g/dL Hct 29.0 L 29.9 L (35.3-44.9) % Plt Count 159 185 (140-400) K/mcL Neutrophils # 6.1 10.1 H (1.6-8.9) K/mcL BMP 12/05/17 12/06/17 17:13 04:57 Sodium 135 L 137 Potassium 3.9 D 3.9 Chloride 101 101 Carbon Dioxide 29 29 BUN 8 8 Creatinine 0.60 0.93 Glucose 116 H 125 H Calcium 7.5 L 7.5 L Liver Function 12/06/17 Range/Units 04:57 Total Bilirubin 0.6 (0.3-1.0) mg/dL Direct Bilirubin 0.2 (0.0-0.2) mg/dL AST 18 (13-39) Units/L ALT 9 (7-52) Units/L Alkaline Phosphatase 60 (34-104) Units/L Albumin 2.4 L (3.5-5.7) g/dL - ABG Interpretation ABG results: PT/INR, D-dimer PT 12.4 Seconds (9.4-12.1) H 11/26/17 11:09 - Impressions Impressions Abdomen/Pelvis CT 12/05/17 12:30 IMPRESSION: 1. Dilated small bowel loops with some decompressed small bowel loops in the pelvis however contrast reaches the rectum and patient has surgery 4 days ago and is clinically moving bowels and passing flatus. Findings would be most compatible with resolving postoperative small bowel ileus. Free intraperitoneal air and some free fluid in the pelvis attributed to recent laparotomy. Findings were discussed with Dr. Arnold (Surgeon)at 11:48 am on 12/05/2017. 2. Stable appearance of the lung bases with findings suggestive of combination of pneumonitis and underlying fibrosis and bronchiectasis. D/ / Jaun Bermudez MD / Jaun Bermudze MD Interpreting Provider: Jaun Bermudez MD Chest X-Ray 12/05/17 16:45 IMPRESSION: Stable interstitial prominence, probably chronic, and left lower lung patchy airspace opacities. D/ / Jaun Bermudez MD / Jaun Bermudez MD Interpreting Provider: Jaun Bermudez MD Abdomen/Pelvis CT 12/05/17 16:50 IMPRESSION: No significant change in the moderately distended proximal and mildly distended distal small bowel loops. Oral contrast is seen within the right and left colon and rectum. Therefore, no high-grade obstruction felt to be present. Findings most compatible with postoperative ileus. Small to moderate amount of free fluid within the pelvis-not significantly changed. This could be residual from recent surgery. Infected fluid cannot be excluded by this exam. Stable small pneumoperitoneum. This may be residual from recent abdominal surgery. There is no extravasated oral contrast seen within the peritoneal cavity to suggest active bowel leak. Moderate interstitial lung disease in both lung bases. This is felt to represent some chronic interstitial lung disease with pulmonary fibrosis and bronchiectasis. Mild superimposed pneumonitis also possible. D/ / Ramin Roy MD / Ramin Roy MD Interpreting Provider: Ramin Roy MD - VTE Documentation of Mechanical Device: Intermittent pneumatic compression device Consult Discharge Plan - Plan Referrals: Sloane Murphy DO [Primary Care Provider] -
[2017-12-06] MEDS: Beclomethasone 80mcg MDI IH SCH ×2 (10:54→22:49)
[2017-12-06] MEDS ORDERED: D5% in Water 1,000 ML IVC SCH (11:08)
[2017-12-06] MEDS ORDERED: Calcium Gluconate 2,000 MG in 0.9 % Sodium Chloride 100 ML IVPB ONE (11:13)
[2017-12-06] MEDS ORDERED: D10% in Water 500 ML IVC PRN (11:46)
[2017-12-06] MEDS: Fluticasone Propionate Nasal 50 MCG/SPRAY BOTTLE NS SCH (12:54)
[2017-12-06] MEDS: Metoclopramide 10 MG/2 ML VIAL IVP SCH ×3 (12:59→23:33)
[2017-12-06] MEDS ORDERED: Clinimix E 5%-15% SOLUTION 2,000 ML with MVI, adult with vitamin K 10 ML IVC SCH (17:00)
[2017-12-06] MEDS: 0.9 % Sodium Chloride 1,000 ML IVC SCH (17:00)
[2017-12-07] MEDS: Levalbuterol Neb 0.63 MG/3 ML IH SCH ×4 (03:42→22:26)
[2017-12-07 04:57] LABS: Basophils % 0.1 %; Eosinophils # 0.1 K/mcL (0.0-0.6); Eosinophils % 0.6 %; Hematocrit 25.7 % (35.3-44.9); Immature Granulocytes % 0.6 % (0-4); Lymphocytes # 1.2 K/mcL (0.6-4.6); Mean Corpuscular HGB Conc 31.1 g/dL (31.6-35.5); Mean Corpuscular Hemoglobin 28.9 pg (28.0-33.3); Mean Corpuscular Volume 92.8 fL (83.0-100.0); Mean Platelet Volume 10.9 fL (9.4-12.4); Monocytes # 0.5 K/mcL (0.0-1.3); Monocytes % 5.1 %; Neutrophils # 8.1 K/mcL (1.6-8.9); Platelet Count 129 K/mcL (140-400); Red Blood Count 2.77 M/mcL (3.82-4.97); Red Cell Distribution Width 15.3 % (11.5-14.5); Segmented Neutrophils % 81.6 %
[2017-12-07 05:12] LABS: BUN/Creatinine Ratio 14 (6-26); Blood Urea Nitrogen 13 mg/dL (8-23); Calcium 7.3 mg/dL (8.6-10.3); Carbon Dioxide 29 mEq/L (23-29); Chloride 103 mEq/L (98-107); Glucose 152 mg/dL (70-105); Osmolality,Calculated 285 (280-300); Potassium 3.5 mEq/L (3.5-5.1); Sodium 136 mEq/L (136-145); eGFR For African Americans > 60 (> 60); eGFR For Non-African Americans > 60 (> 60)
[2017-12-07 05:19] LABS: Magnesium 1.7 mg/dL (1.6-2.6); Phosphorous 2.9 mg/dL (2.7-4.5)
[2017-12-07] MEDS: Metoclopramide 10 MG/2 ML VIAL IVP SCH ×3 (06:03→17:19)
[2017-12-07] MEDS: Piperacillin/Tazobactam 3.375 GM in 0.9 % Sodium Chloride Mini Bag 100 ML IVPB SCH ×2 (09:00→16:08)
[2017-12-07] MEDS: Fluticasone Propionate Nasal 50 MCG/SPRAY BOTTLE NS SCH (09:01)
[2017-12-07] MEDS: *HR* Digoxin 0.5 MG/2 ML AMPUL IVP SCH (09:01)
[2017-12-07] MEDS: Pantoprazole 40 MG VIAL IVP SCH (09:02)
[2017-12-07] MEDS: Menthol 9.1 MG LOZENGE PO PRN (09:02)
--- NOTE | 2017-12-07 10:19 | General Surgery Progress Note ---
<Jose Francisco Zhang - Last Filed: 12/07/17 10:15> Date of Encounter: 12/07/17 Time of Encounter: 10:15 - Assessment and Plan (1) Small bowel obstruction Current Visit: Yes Status: Acute NG tube was removed on 12/04/2017. Advanced to full liquids on 12/05 but did not tolerate. TPN initiated yesterday. Being treated by primary team with Iv Abx for LLL HAP. Regarding concern of wound dehiscence, patient had been more distended in previous days in her abdominal wall appears to be significantly more lax; feel that the stables of come loose due to this laxity and I do not see any evidence of true wound dehiscence. Also no signs of incisional infection. Plan: - POD#6 s/p ex-celiotomy - afebrile temperature elevations improved; borderline hypotensive - leukocytosis improved 9.9 thousand - Hgb 8.0 today - CBC qAM - phosphorus (borderline - 2.9) and magnesium (1.7) - electrolytes QAM and correct as needed - continue IVF - NPO except small sips for PO medications - cont TPN KUB 12/03/17: dilated loops of small bowel and upper abdomen air-fluid levels, and NG tube tip in gastric fundus. SB follow-through 12/04/17: Dilated small bowel with progression of oral contrast into the colon. Findings are likely reflective of postoperative ileus or less likely partial obstruction. Abd XR Series 12/05/17: Received call from [facility] today from a Dr. Miller; reports critical result of abdominal series today citing "pneumoperitoneum". CT Abd w/oral 12/05/17: Dilated small bowel loops with some decompressed small bowel loops in the pelvis however contrast reaches the rectum and patient has surgery 4 days ago and is clinically moving bowels and passing flatus. Findings would be most compatible with resolving postoperative small bowel ileus. Free intraperitoneal air and some free fluid in the pelvis attributed to recent laparotomy. Subjective Narrative: RN paged last night concerned of incisional dehiscence and patel that have lost unilateral hold. Dr. Campoverde responded prior stating to just keep incision covered. Pt states overall feels better. Has been receiving TPN overnight. Abdominal pain improved. Still still has productive cough. Has abdominal wall soreness she attributes to cough. No arden-incisional pain today. Objective Vital Signs - Last 8 Hours Temp Pulse Resp BP Pulse Ox 12/07/17 07:01 74 16 92/51 94 12/07/17 03:42 16 91 12/07/17 03:29 97.4 F L 77 15 87/54 95 Intake and Output 12/06/17 12/07/17 12/07/17 23:59 07:59 15:59 Intake Total 100 / 100 100 / 100 Output Total 0 / 0 0 / 0 Balance 100 / 100 100 / 100 Intake: IV Fluids 100 / 100 100 / 100 Zosyn 3.375 GM In 0.9 % Sodium 100 / 100 100 / 100 Chloride (Mini-Bag +) 100 ML @ 25 mls/hr IVPB Q8HR [facility] Rx#: [id number] Oral 0 / 0 0 / 0 Output: Urine 0 / 0 0 / 0 Other: Meal NPO BREAKFAST Stool Size Moderate Stool Consistency loose liquid Stool Characteristics Mucoid Stool Color Green # Voids 1 Blood Glucose* 193 175 VITAL SIGNS: Reviewed. See [facility] GENERAL: comfortably supine; has cough that sounds less productive than prior. No acute distress. HEENT: oral mucosa moist, no JVD noted CV: normal heart rate today, regular rhythm without murmurs RESPIRATORY: lung sounds wheezy and ronchorous at bases, left worse than right. ABD: grossly normal, hypoactive, soft, nontender, not distended INCISION: account for patel lateralized only to the right side. Some clear drainage on bandage. No bleeding. Does not appear to be dehiscent. EXTREMITY: grossly normal motor function, no pedal edema, peripheral pulses 2+ b /l NEUROLOGIC EXAM: AOx3, obeys commands, no speech deficits. PSYCHIATRIC: normal mood and affect SKIN: no gross lesions, rashes, or skin changes - Labs 12/07/17 04:00 12/07/17 04:00 Diabetes panel 12/07/17 Range/Units 04:00 Sodium 136 (136-145) mEq/L Potassium 3.5 (3.5-5.1) mEq/L Chloride 103 (98-107) mEq/L Carbon Dioxide 29 (23-29) mEq/L BUN 13 (8-23) mg/dL Creatinine 0.92 (0.60-1.20) mg/dL Glucose 152 H (70-105) mg/dL Calcium 7.3 L (8.6-10.3) mg/dL Calcium panel 12/07/17 12/07/17 Range/Units 04:00 04:00 Calcium 7.3 L (8.6-10.3) mg/dL Phosphorus 2.9 (2.7-4.5) mg/dL Pituitary panel 12/07/17 Range/Units 04:00 Sodium 136 (136-145) mEq/L Potassium 3.5 (3.5-5.1) mEq/L Chloride 103 (98-107) mEq/L Carbon Dioxide 29 (23-29) mEq/L BUN 13 (8-23) mg/dL Creatinine 0.92 (0.60-1.20) mg/dL Glucose 152 H (70-105) mg/dL Calcium 7.3 L (8.6-10.3) mg/dL Adrenal panel 12/07/17 Range/Units 04:00 Sodium 136 (136-145) mEq/L Potassium 3.5 (3.5-5.1) mEq/L Chloride 103 (98-107) mEq/L Carbon Dioxide 29 (23-29) mEq/L BUN 13 (8-23) mg/dL Creatinine 0.92 (0.60-1.20) mg/dL Glucose 152 H (70-105) mg/dL Calcium 7.3 L (8.6-10.3) mg/dL - VTE Documentation of Mechanical Device: Intermittent pneumatic compression device Consult Discharge Plan - Plan Referrals: Sloane Murphy DO [Primary Care Provider] - <Nadeem Chauhan - Last Filed: 12/08/17 06:44> Date of Encounter: 12/07/17 Objective Vital Signs - Last 8 Hours Temp Pulse Resp BP Pulse Ox 12/08/17 04:13 18 91 12/08/17 03:59 98.2 F 71 15 94/52 92 12/07/17 23:31 98.9 F 81 14 119/63 88 Intake and Output 12/07/17 12/07/17 12/08/17 15:59 23:59 07:59 Intake Total 1100 / 1100 100 / 100 0 / 0 Output Total 0 / 0 450 / 450 Balance 1100 / 1100 100 / 100 -450 / -450 Intake: IV Fluids 1100 / 1100 100 / 100 0.9 % Sodium Chloride 1,000 ML 1000 / 1000 @ 55 mls/hr IVC .[id number] [facility] Rx #:[id number] Zosyn 3.375 GM In 0.9 % Sodium 100 / 100 100 / 100 Chloride (Mini-Bag +) 100 ML @ 25 mls/hr IVPB Q8HR [facility] Rx#: [id number] Oral 0 / 0 0 / 0 Output: Urine 0 / 0 450 / 450 Other: Meal NPO BREAKFAST Stool Size Moderate Moderate Stool Consistency loose liquid Stool Characteristics Mucoid Stool Color Brown Green # Voids 1 # Urine Diapers 1 # Bowel Movements 1 # Bowel Movement Diapers 1 Weight 60.8 kg Blood Glucose* 148 143 152 Patient Weight 12/08/17 23:59 Weight 60.8 kg - Labs 12/08/17 04:00 12/08/17 04:00 Diabetes panel 12/08/17 Range/Units 04:00 Sodium 138 (136-145) mEq/L Potassium 3.3 L (3.5-5.1) mEq/L Chloride 105 (98-107) mEq/L Carbon Dioxide 30 H (23-29) mEq/L BUN 13 (8-23) mg/dL Creatinine 0.83 (0.60-1.20) mg/dL Glucose 140 H (70-105) mg/dL Calcium 7.4 L (8.6-10.3) mg/dL Calcium panel 12/08/17 12/08/17 Range/Units 04:00 04:00 Calcium 7.4 L (8.6-10.3) mg/dL Phosphorus 2.4 L (2.7-4.5) mg/dL Pituitary panel 12/08/17 Range/Units 04:00 Sodium 138 (136-145) mEq/L Potassium 3.3 L (3.5-5.1) mEq/L Chloride 105 (98-107) mEq/L Carbon Dioxide 30 H (23-29) mEq/L BUN 13 (8-23) mg/dL Creatinine 0.83 (0.60-1.20) mg/dL Glucose 140 H (70-105) mg/dL Calcium 7.4 L (8.6-10.3) mg/dL Adrenal panel 12/08/17 Range/Units 04:00 Sodium 138 (136-145) mEq/L Potassium 3.3 L (3.5-5.1) mEq/L Chloride 105 (98-107) mEq/L Carbon Dioxide 30 H (23-29) mEq/L BUN 13 (8-23) mg/dL Creatinine 0.83 (0.60-1.20) mg/dL Glucose 140 H (70-105) mg/dL Calcium 7.4 L (8.6-10.3) mg/dL - Attending Attestation I examined this patient and my medical decision-making was reviewed with the Resident Physician. I agree with the documented findings, disposition and treatment plan as described except to the extent set forth below. I reviewed the above assessment and evaluation and agree with the above plan. Noted is that some of the patel had fallen out and the interstitium is of the wound has been packed with Nu Gauze. Agree with dressing change. Continue to await bowel function returned.
[2017-12-07] MEDS: Beclomethasone 80mcg MDI IH SCH ×2 (10:50→22:27)
[2017-12-07] MEDS: Lactobacillus 1 EACH CAP.SPRINK PO SCH ×2 (11:28→21:10)
--- NOTE | 2017-12-07 12:48 | Internal Med Progress Note ---
Date of Encounter: 12/07/17 Time of Encounter: 09:50 - Assessment and plan (1) Small bowel obstruction Current Visit: Yes Status: Acute Assessment and plan: Status post celiotomy. Postop day 6. Previously did not tolerate advancing diet. Surgery following. Remains nothing by mouth. Ok to take small sips with by mouth medications from today. Continue TPN. Replace electrolytes. (2) HAP (hospital-acquired pneumonia) Current Visit: Yes Status: Suspected Assessment and plan: CT scan done on 12/05 of the abdomen and pelvis showed possible pneumonitis. We will continue broad-spectrum antibiotics for today. If cultures remain negative , we will de-escalate antibiotics tomorrow. (3) Diabetes mellitus, type 2 Current Visit: Yes Status: Chronic Assessment and plan: Controlled. Continue current insulin regimen. Qualifiers: Diabetes mellitus truck terminal manager insulin use: without truck terminal manager use Diabetes mellitus complication status: without complication Qualified Code(s): E11.9 - Type 2 diabetes mellitus without complications (4) PAF (paroxysmal atrial fibrillation) Current Visit: Yes Status: Chronic Assessment and plan: rate controlled. Not on anticoagulation. Continue metoprolol. On IV digoxin. (5) CKD (chronic kidney disease) stage 3, GFR 30-59 ml/min Current Visit: Yes Status: Chronic Assessment and plan: Creatinine remains stable. 0.92. Continue to monitor renal function. (6) HTN (hypertension) Current Visit: Yes Status: Chronic Assessment and plan: Controlled. Has been on the lower side of normal since yesterday. Will continue Lopressor at current dose. If persistently low, we will decrease Lopressor dose. Qualifiers: Hypertension type: essential hypertension Qualified Code(s): I10 - Essential (primary) hypertension (7) Chronic respiratory failure with hypoxia Current Visit: Yes Status: Chronic Assessment and plan: Continue O2 supplementation (8) Chronic diastolic heart failure Current Visit: Yes Status: Chronic Assessment and plan: Not in acute exacerbation at this time. Continue home medications (9) DVT prophylaxis Current Visit: Yes Status: Acute Assessment and plan: On SCDs alone due to prior history of pulmonary alveolar hemorrhage - Time Spent With Patient Total time spent is greater than 50% in coordination of care (as documented) at patient's floor/unit and/or counseling patient: - Subjective Interval history: Patient is lying in bed. Feels somewhat better today. Does have cough and bringing up sputum. No fever reported overnight. Remains on TPN. Did have a bowel movement and has been passing flatus. - Constitutional Vitals: Temp Pulse Resp BP Pulse Ox 98.9 F 103 18 99/63 91 12/07/17 11:21 12/07/17 11:21 12/07/17 11:21 12/07/17 11:21 12/07/17 11:21 General appearance: Present: cooperative, A&O X 3, answers questions appropriately - Neck Neck exam general surgery: Present: supple, trachea midline. Absent: lymphadenopathy - Respiratory Respiratory exam: Present: CTAB. Absent: accessory muscle use, rales, rhonchi, wheezes - Cardiovascular Cardiovascular exam: Present: RRR, +S1, +S2. Absent: diastolic murmur, gallop, rubs, systolic murmur - GI/Abdominal GI/Abdominal exam: Present: distended, normal bowel sounds, soft, no peritoneal signs. Absent: tenderness - Extremities Exam Extremities exam: Present: warm, radial pulses palpable and symmetrical. Absent : calf tenderness, cyanotic, pedal edema Internal Medicine: Result - Labs CBC & Chem 7: 12/07/17 04:00 12/07/17 04:00 Labs: Short CBC 12/07/17 Range/Units 04:00 WBC 9.9 (4.3-11.1) K/mcL Hgb 8.0 L D (11.5-15.4) g/dL Hct 25.7 L (35.3-44.9) % Plt Count 129 L (140-400) K/mcL Neutrophils # 8.1 (1.6-8.9) K/mcL BMP 12/07/17 04:00 Sodium 136 Potassium 3.5 Chloride 103 Carbon Dioxide 29 BUN 13 Creatinine 0.92 Glucose 152 H Calcium 7.3 L - ABG Interpretation ABG results: PT/INR, D-dimer PT 12.4 Seconds (9.4-12.1) H 11/26/17 11:09 - Impressions Impressions Small Bowel X-Ray 12/03/17 14:00 IMPRESSION: Dilated small bowel with progression of oral contrast into the colon. Findings are likely reflective of postoperative ileus or less likely partial obstruction. D/ / 12/04/2017 07:29:05 Andrea Gomes MD / earnold Interpreting Provider: Andrea Gomes MD - VTE Documentation of Mechanical Device: Intermittent pneumatic compression device Consult Discharge Plan - Plan Referrals: Sloane Murphy DO [Primary Care Provider] -
[2017-12-07] MEDS: Diltiazem CD (24hr) 120 MG CAPSULE PO SCH (13:13)
[2017-12-07] MEDS ORDERED: Dextrose Gel 15 GM/37.5 ML TUBE PO PRN ×2 (13:18)
[2017-12-07] MEDS ORDERED: D5% in Water 1,000 ML IVC PRN (13:18)
[2017-12-07] MEDS ORDERED: *HR* Dextrose 50 % in Water (Syg) 50 ML SYRINGE IVP PRN (13:18)
[2017-12-07] MEDS: 0.9 % Sodium Chloride 1,000 ML IVC SCH (13:35)
[2017-12-07] MEDS: Ipratropium/Albuterol Neb 3 ML IH SCH ×3 (15:52→23:40)
[2017-12-07] MEDS: Insulin LISPRO 300 UNITS/3 ML VIAL SQ SCH (16:09)
[2017-12-07] MEDS ORDERED: Clinimix E 5%-15% SOLUTION 2,000 ML with MVI, adult with vitamin K 10 ML IVC SCH (17:00)
[2017-12-07] MEDS ORDERED: Furosemide 20 MG/2 ML VIAL IVP ONE (17:17)
[2017-12-07] MEDS ORDERED: Insulin LISPRO 300 UNITS/3 ML VIAL SQ SCH (21:00)
[2017-12-08] MEDS: Piperacillin/Tazobactam 3.375 GM in 0.9 % Sodium Chloride Mini Bag 100 ML IVPB SCH ×3 (00:08→15:47)
[2017-12-08] MEDS: Metoclopramide 10 MG/2 ML VIAL IVP SCH ×3 (00:12→13:43)
[2017-12-08] MEDS: Ipratropium/Albuterol Neb 3 ML IH SCH ×5 (04:08→20:03)
[2017-12-08] MEDS: Levalbuterol Neb 0.63 MG/3 ML IH SCH ×4 (04:13→22:37)
[2017-12-08 04:59] LABS: Basophils % 0.1 %; Eosinophils # 0.1 K/mcL (0.0-0.6); Eosinophils % 1.1 %; Hemoglobin 8.1 g/dL (11.5-15.4); Immature Granulocytes % 0.4 % (0-4); Lymphocytes # 1.4 K/mcL (0.6-4.6); Lymphocytes % 18.2 %; Mean Corpuscular HGB Conc 32.4 g/dL (31.6-35.5); Mean Corpuscular Volume 92.6 fL (83.0-100.0); Mean Platelet Volume 10.7 fL (9.4-12.4); Monocytes # 0.4 K/mcL (0.0-1.3); Neutrophils # 5.9 K/mcL (1.6-8.9); Platelet Count 130 K/mcL (140-400); Red Cell Distribution Width 15.5 % (11.5-14.5); Segmented Neutrophils % 75.2 %
[2017-12-08 05:16] LABS: Magnesium 1.7 mg/dL (1.6-2.6); Phosphorous 2.4 mg/dL (2.7-4.5)
[2017-12-08 05:17] LABS: BUN/Creatinine Ratio 16 (6-26); Blood Urea Nitrogen 13 mg/dL (8-23); Calcium 7.4 mg/dL (8.6-10.3); Carbon Dioxide 30 mEq/L (23-29); Chloride 105 mEq/L (98-107); Glucose 140 mg/dL (70-105); Osmolality,Calculated 288 (280-300); Potassium 3.3 mEq/L (3.5-5.1); Sodium 138 mEq/L (136-145); eGFR For African Americans > 60 (> 60); eGFR For Non-African Americans > 60 (> 60)
[2017-12-08 06:12] LABS: Platelet Estimate Slight Decrease (Normal); Toxic Granulation Present (Not Present)
[2017-12-08] MEDS ORDERED: Aminoglycoside Consult 1 EACH MC ONE (08:29)
[2017-12-08] MEDS: Pantoprazole 40 MG VIAL IVP SCH (09:11)
[2017-12-08] MEDS: Diltiazem CD (24hr) 120 MG CAPSULE PO SCH (09:11)
[2017-12-08] MEDS: Lactobacillus 1 EACH CAP.SPRINK PO SCH ×2 (09:11→21:13)
[2017-12-08] MEDS: Fluticasone Propionate Nasal 50 MCG/SPRAY BOTTLE NS SCH (09:16)
[2017-12-08] MEDS: Insulin LISPRO 300 UNITS/3 ML VIAL SQ SCH ×4 (09:20→21:12)
--- NOTE | 2017-12-08 10:28 | General Surgery Progress Note ---
<Jose Francisco Zhang - Last Filed: 12/08/17 16:49> Date of Encounter: 12/08/17 Time of Encounter: 10:00 - Assessment and Plan (1) Small bowel obstruction Current Visit: Yes Status: Acute NG tube was removed on 12/04/2017. Advanced to full liquids on 12/05 but did not tolerate. TPN initiated. Tolerated restricted clears 12/07/17. Continues to have BMs. No nausea/vomiting/bloating/distention. Being treated by primary team with Iv Abx for LLL HAP. Plan: - POD#7 s/p ex-celiotomy on 12/01/17 - wound care to midline incision daily - leukocytosis improved - Hgb stable - CBC qAM - was limited clears yesterday; tolerated - advancing to unrestricted clear liquids today; soft diet tomorrow if clears tolerated - added protein supplementation - continue IVF - cont TPN - electrolytes QAM and correct as needed Subjective Narrative: Overall gradually feeling better. Afebrile overnight. Still has cough but is less productive. No recurrent abdominal pain, bloating, nausea, vomiting. I said bowel movements/diarrhea. As appetite, but is cognitively apprehensive towards over advancing. No other concerns at this time. Objective Vital Signs - Last 8 Hours Temp Pulse Resp BP Pulse Ox 12/08/17 07:11 98.1 F 78 16 111/63 86 12/08/17 04:13 18 91 12/08/17 03:59 98.2 F 71 15 94/52 92 Intake and Output 12/07/17 12/08/17 12/08/17 23:59 07:59 15:59 Intake Total 100 / 100 100 / 100 571 / 571 Output Total 450 / 450 Balance 100 / 100 -350 / -350 571 / 571 Intake: IV Fluids 100 / 100 100 / 100 571 / 571 0.9 % Sodium Chloride 1,000 ML 571 / 571 @ 55 mls/hr IVC .[id number] [facility] Rx #:[id number] Zosyn 3.375 GM In 0.9 % Sodium 100 / 100 100 / 100 Chloride (Mini-Bag +) 100 ML @ 25 mls/hr IVPB Q8HR [facility] Rx#: [id number] Oral 0 / 0 0 / 0 Output: Urine 450 / 450 Other: Stool Size Moderate Moderate Stool Consistency loose liquid Stool Characteristics Mucoid Stool Color Brown Green # Voids 1 # Urine Diapers 1 # Bowel Movements 1 # Bowel Movement Diapers 1 Weight 60.8 kg Blood Glucose* 143 168 Patient Weight 12/08/17 23:59 Weight 60.8 kg VITAL SIGNS: Reviewed. See [facility] GENERAL: comfortably supine; has cough that sounds less productive than prior. No acute distress. HEENT: oral mucosa moist, no JVD noted CV: normal heart rate today, regular rhythm without murmurs RESPIRATORY: lung sounds ronchorous at bases. No wheezes today. ABD: grossly normal, active sounds, soft, nontender, not distended INCISION: account for patel lateralized only to the right side. Some clear drainage on bandage. No bleeding. Does not appear to be dehiscent. EXTREMITY: grossly normal motor function, no pedal edema, peripheral pulses 2+ b /l NEUROLOGIC EXAM: AOx3, obeys commands, no speech deficits. PSYCHIATRIC: normal mood and affect SKIN: no gross lesions, rashes, or skin changes - Labs 12/08/17 04:00 12/08/17 04:00 Diabetes panel 12/08/17 Range/Units 04:00 Sodium 138 (136-145) mEq/L Potassium 3.3 L (3.5-5.1) mEq/L Chloride 105 (98-107) mEq/L Carbon Dioxide 30 H (23-29) mEq/L BUN 13 (8-23) mg/dL Creatinine 0.83 (0.60-1.20) mg/dL Glucose 140 H (70-105) mg/dL Calcium 7.4 L (8.6-10.3) mg/dL Calcium panel 12/08/17 12/08/17 Range/Units 04:00 04:00 Calcium 7.4 L (8.6-10.3) mg/dL Phosphorus 2.4 L (2.7-4.5) mg/dL Pituitary panel 12/08/17 Range/Units 04:00 Sodium 138 (136-145) mEq/L Potassium 3.3 L (3.5-5.1) mEq/L Chloride 105 (98-107) mEq/L Carbon Dioxide 30 H (23-29) mEq/L BUN 13 (8-23) mg/dL Creatinine 0.83 (0.60-1.20) mg/dL Glucose 140 H (70-105) mg/dL Calcium 7.4 L (8.6-10.3) mg/dL Adrenal panel 12/08/17 Range/Units 04:00 Sodium 138 (136-145) mEq/L Potassium 3.3 L (3.5-5.1) mEq/L Chloride 105 (98-107) mEq/L Carbon Dioxide 30 H (23-29) mEq/L BUN 13 (8-23) mg/dL Creatinine 0.83 (0.60-1.20) mg/dL Glucose 140 H (70-105) mg/dL Calcium 7.4 L (8.6-10.3) mg/dL - VTE Documentation of Mechanical Device: Intermittent pneumatic compression device Consult Discharge Plan - Plan Referrals: Sloane Murphy DO [Primary Care Provider] - <Nadeem Chauhan - Last Filed: 12/09/17 12:56> Date of Encounter: 12/08/17 Objective Vital Signs - Last 8 Hours Temp Pulse Resp BP Pulse Ox 12/09/17 10:05 97.3 F L 93 15 110/56 90 12/09/17 06:32 98.3 F 80 16 114/66 90 Intake and Output 12/08/17 12/09/17 12/09/17 23:59 07:59 15:59 Intake Total 300 / 300 220 / 220 890 / 890 Output Total 350 / 350 0 / 0 Balance -50 / -50 220 / 220 890 / 890 Intake: IV Fluids 300 / 300 100 / 100 350 / 350 Magnesium Sulfate Premix 2gm/ 50 / 50 50mL 2 gm In 50 ml @ 50 mls/hr IVPB ONCE ONE Rx#:[id number] Zosyn 3.375 GM In 0.9 % Sodium 100 / 100 100 / 100 Chloride (Mini-Bag +) 100 ML @ 25 mls/hr IVPB Q8HR [facility] Rx#: [id number] Potassium Chloride 10 mEq/100mL 200 / 200 300 / 300 10 meq In 100 ml @ 100 mls/hr IVPB Q1H [facility] Rx#:[id number] Oral 0 / 0 120 / 120 540 / 540 Output: Urine 350 / 350 0 / 0 Other: Meal Breakfast Stool Size Moderate Moderate Large Stool Consistency liquid liquid liquid Stool Characteristics Mucoid Mucoid [place] Stool Color Brown Brown Brown Bright Red Blood Dark Red Blood Bright Red Blood # Urine Diapers 1 1 0 # Bowel Movement Diapers 1 1 1 Weight 64.7 kg Blood Glucose* 140 139 272 Patient Weight 12/09/17 23:59 Weight 64.7 kg - Labs 12/09/17 03:47 12/09/17 03:47 Diabetes panel 12/09/17 Range/Units 03:47 Sodium 140 (136-145) mEq/L Potassium 2.9 L (3.5-5.1) mEq/L Chloride 107 (98-107) mEq/L Carbon Dioxide 27 (23-29) mEq/L BUN 13 (8-23) mg/dL Creatinine 0.75 (0.60-1.20) mg/dL Glucose 138 H (70-105) mg/dL Calcium 7.3 L (8.6-10.3) mg/dL Calcium panel 12/09/17 12/09/17 Range/Units 03:47 03:47 Calcium 7.3 L (8.6-10.3) mg/dL Phosphorus 3.2 (2.7-4.5) mg/dL Pituitary panel 12/09/17 Range/Units 03:47 Sodium 140 (136-145) mEq/L Potassium 2.9 L (3.5-5.1) mEq/L Chloride 107 (98-107) mEq/L Carbon Dioxide 27 (23-29) mEq/L BUN 13 (8-23) mg/dL Creatinine 0.75 (0.60-1.20) mg/dL Glucose 138 H (70-105) mg/dL Calcium 7.3 L (8.6-10.3) mg/dL Adrenal panel 12/09/17 Range/Units 03:47 Sodium 140 (136-145) mEq/L Potassium 2.9 L (3.5-5.1) mEq/L Chloride 107 (98-107) mEq/L Carbon Dioxide 27 (23-29) mEq/L BUN 13 (8-23) mg/dL Creatinine 0.75 (0.60-1.20) mg/dL Glucose 138 H (70-105) mg/dL Calcium 7.3 L (8.6-10.3) mg/dL - Attending Attestation I examined this patient and my medical decision-making was reviewed with the Resident Physician. I agree with the documented findings, disposition and treatment plan as described except to the extent set forth below. I reviewed the above assessment and evaluation and agree with the above plan.
[2017-12-08] MEDS: Beclomethasone 80mcg MDI IH SCH ×2 (11:05→22:37)
[2017-12-08] MEDS ORDERED: Furosemide 20 MG/2 ML VIAL IVP ONE (13:46)
--- NOTE | 2017-12-08 14:12 | Internal Med Progress Note ---
Date of Encounter: 12/08/17 Time of Encounter: 09:50 - Assessment and plan (1) Small bowel obstruction Current Visit: Yes Status: Acute Assessment and plan: Status post celiotomy. Postop day 7. Tolerating clear liquid diet currently. Surgery following. We will remove restrictions on clear liquid diet today. Continue to advance diet very slowly. Continue TPN for now. (2) HAP (hospital-acquired pneumonia) Current Visit: Yes Status: Suspected Assessment and plan: Blood cultures remain negative. We will de-escalate antibiotics. Stop vancomycin. Continue Zosyn. (3) Diabetes mellitus, type 2 Current Visit: Yes Status: Chronic Assessment and plan: Change Accu-Cheks to every 4 hours. Continue current insulin regimen. 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 Not on anticoagulation due to anemia and prior history of pulmonary alveolar hemorrhage (5) CKD (chronic kidney disease) stage 3, GFR 30-59 ml/min Current Visit: Yes Status: Chronic Assessment and plan: Renal function remains good. Creatinine 0.83 (6) HTN (hypertension) Current Visit: Yes Status: Chronic Qualifiers: Hypertension type: essential hypertension Qualified Code(s): I10 - Essential (primary) hypertension (7) Chronic respiratory failure with hypoxia Current Visit: Yes Status: Chronic Assessment and plan: With underlying pulmonary fibrosis. Continue O2 supplementation (8) Chronic diastolic heart failure Current Visit: Yes Status: Chronic Assessment and plan: Not in acute exacerbation but patient does have increased congestive changes on chest x-ray. We will pulse dose Lasix. Received Lasix yesterday. We will give another dose of 20 mg Lasix today. (9) DVT prophylaxis Current Visit: Yes Status: Acute Assessment and plan: Continue SCDs. No medical anticoagulation due to history of pulmonary alveolar hemorrhage - Time Spent With Patient Total time spent is greater than 50% in coordination of care (as documented) at patient's floor/unit and/or counseling patient: - Subjective Interval history: Patient is feeling better today. Tolerating clear liquid diet. Passing flatus. Denies any new complaints at this time. No new episodes of fever overnight. Does continue to have cough. No pleuritic chest pain. No palpitations. - Constitutional Vitals: Temp Pulse Resp BP Pulse Ox 98.3 F 74 18 107/65 93 12/08/17 10:52 12/08/17 10:52 12/08/17 11:05 12/08/17 10:52 12/08/17 11:05 General appearance: Present: cooperative, A&O X 3, answers questions appropriately - Neck Neck exam general surgery: Present: supple, trachea midline. Absent: lymphadenopathy - Respiratory Respiratory exam: Absent: accessory muscle use, rales, rhonchi, wheezes Additional comments: Coarse breath sounds bilaterally - Cardiovascular Cardiovascular exam: Present: RRR, +S1, +S2. Absent: diastolic murmur, gallop, rubs, systolic murmur - GI/Abdominal GI/Abdominal exam: Present: normal bowel sounds, soft, no peritoneal signs. Absent: distended, tenderness - Extremities Exam Extremities exam: Present: warm, radial pulses palpable and symmetrical. Absent : calf tenderness, cyanotic, pedal edema - Neurological Exam Neurological exam: Present: alert, oriented X3, no focal deficits. Absent: facial droop, speech deficit - Skin Skin exam: Present: dry, intact Internal Medicine: Result - Labs CBC & Chem 7: 12/08/17 04:00 12/08/17 04:00 Labs: Short CBC 12/08/17 Range/Units 04:00 WBC 7.9 (4.3-11.1) K/mcL Hgb 8.1 L (11.5-15.4) g/dL Hct 25.0 L (35.3-44.9) % Plt Count 130 L (140-400) K/mcL Neutrophils # 5.9 (1.6-8.9) K/mcL BMP 12/08/17 04:00 Sodium 138 Potassium 3.3 L Chloride 105 Carbon Dioxide 30 H BUN 13 Creatinine 0.83 Glucose 140 H Calcium 7.4 L - ABG Interpretation ABG results: PT/INR, D-dimer PT 12.4 Seconds (9.4-12.1) H 11/26/17 11:09 - Impressions Impressions Chest X-Ray 12/07/17 14:06 IMPRESSION: Bilateral pulmonary infiltrates evident could represent edema or pneumonia. Bibasilar hypoaeration. D/ / Randy Heath MD / Randy Heath MD Interpreting Provider: Randy Heath MD - VTE Documentation of Mechanical Device: Intermittent pneumatic compression device Consult Discharge Plan - Plan Referrals: Sloane Murphy DO [Primary Care Provider] -
[2017-12-08] MEDS ORDERED: Clinimix E 5%-15% SOLUTION 2,000 ML with MVI, adult with vitamin K 10 ML IVC SCH (17:00)
[2017-12-08] MEDS: Menthol 9.1 MG LOZENGE PO PRN (19:08)
[2017-12-09] MEDS: Insulin LISPRO 300 UNITS/3 ML VIAL SQ SCH ×6 (00:02→21:09)
[2017-12-09] MEDS: Piperacillin/Tazobactam 3.375 GM in 0.9 % Sodium Chloride Mini Bag 100 ML IVPB SCH ×3 (00:02→15:47)
[2017-12-09] MEDS: Menthol 9.1 MG LOZENGE PO PRN ×2 (00:36→05:42)
[2017-12-09] MEDS: Ipratropium/Albuterol Neb 3 ML IH SCH ×4 (03:08→11:11)
[2017-12-09] MEDS: Levalbuterol Neb 0.63 MG/3 ML IH SCH ×4 (03:31→20:02)
[2017-12-09 04:05] LABS: Basophils % 0.1 %; Eosinophils # 0.1 K/mcL (0.0-0.6); Eosinophils % 0.7 %; Hematocrit 24.3 % (35.3-44.9); Hemoglobin 7.8 g/dL (11.5-15.4); Immature Granulocytes % 0.7 % (0-4); Lymphocytes # 1.3 K/mcL (0.6-4.6); Lymphocytes % 14.3 %; Mean Corpuscular HGB Conc 32.1 g/dL (31.6-35.5); Mean Corpuscular Hemoglobin 29.8 pg (28.0-33.3); Mean Corpuscular Volume 92.7 fL (83.0-100.0); Mean Platelet Volume 10.6 fL (9.4-12.4); Monocytes # 0.5 K/mcL (0.0-1.3); Monocytes % 5.1 %; Neutrophils # 7.4 K/mcL (1.6-8.9); Nucleated Red Blood Cells 0.3 /100 WBC (0); Platelet Count 157 K/mcL (140-400); Red Blood Count 2.62 M/mcL (3.82-4.97); Red Cell Distribution Width 15.4 % (11.5-14.5); Segmented Neutrophils % 79.1 %
[2017-12-09 04:42] LABS: Platelet Estimate Normal (Normal)
[2017-12-09 04:55] LABS: BUN/Creatinine Ratio 17 (6-26); Blood Urea Nitrogen 13 mg/dL (8-23); Calcium 7.3 mg/dL (8.6-10.3); Carbon Dioxide 27 mEq/L (23-29); Chloride 107 mEq/L (98-107); Glucose 138 mg/dL (70-105); Magnesium 1.4 mg/dL (1.6-2.6); Osmolality,Calculated 292 (280-300); Phosphorous 3.2 mg/dL (2.7-4.5); Potassium 2.9 mEq/L (3.5-5.1); Sodium 140 mEq/L (136-145); eGFR For African Americans > 60 (> 60); eGFR For Non-African Americans > 60 (> 60)
--- NOTE | 2017-12-09 07:20 | General Surgery Progress Note ---
<Jose Francisco Zhang - Last Filed: 12/09/17 11:25> Date of Encounter: 12/09/17 Time of Encounter: 07:20 - Assessment and Plan (1) Small bowel obstruction Current Visit: Yes Status: Acute NG tube was removed on 12/04/2017. Advanced to full liquids on 12/05 but did not tolerate. TPN initiated. Tolerated restricted clears 12/07/17. Continues to have BMs. No nausea/vomiting/bloating/distention. Being treated by primary team with Iv Abx for LLL HAP. Plan: - POD#8 s/p ex-celiotomy on 12/01/17 - wound care to midline incision daily - leukocytosis improved - Hgb virtually stable - CBC qAM - was unlimited clears yesterday; tolerated well without bowel provocation - advanced to full liquids today; further advancement in subsequent days as tolerated - added protein supplementation - continue IVF - cont TPN at half rate (30mL/hr) - electrolytes QAM and correct as needed Subjective Narrative: Overall symptomatically stable. Does have some soreness from excessive coughing. Denies any subjective shortness of breath. No nausea, vomiting, bloating, distinction, incisional pain, or recurrent/worsening abdominal discomfort. Afebrile overnight. Plentiful flatus and loose bowel movements. Objective Vital Signs - Last 8 Hours Temp Pulse Resp BP Pulse Ox 12/09/17 06:32 98.3 F 80 16 114/66 90 12/09/17 04:00 98.7 F 83 16 107/83 87 12/09/17 03:31 16 92 12/08/17 23:51 98.3 F 75 15 110/63 90 Intake and Output 12/08/17 12/08/17 12/09/17 15:59 23:59 07:59 Intake Total 871 / 871 300 / 300 220 / 220 Output Total 350 / 350 0 / 0 Balance 871 / 871 -50 / -50 220 / 220 Intake: IV Fluids 871 / 871 300 / 300 100 / 100 0.9 % Sodium Chloride 1,000 ML 571 / 571 @ 55 mls/hr IVC .[id number] [facility] Rx #:[id number] Zosyn 3.375 GM In 0.9 % Sodium 100 / 100 100 / 100 100 / 100 Chloride (Mini-Bag +) 100 ML @ 25 mls/hr IVPB Q8HR [facility] Rx#: [id number] Potassium Chloride 10 mEq/100mL 200 / 200 200 / 200 10 meq In 100 ml @ 100 mls/hr IVPB Q1H [facility] Rx#:[id number] Oral 0 / 0 120 / 120 Output: Urine 350 / 350 0 / 0 Other: Stool Size Moderate Moderate Stool Consistency liquid liquid Stool Characteristics Mucoid [place] Stool Color Brown Brown Bright Red Blood Dark Red Blood # Urine Diapers 1 1 # Bowel Movement Diapers 1 1 Weight 64.7 kg Blood Glucose* 119 140 154 Patient Weight 12/09/17 23:59 Weight 64.7 kg VITAL SIGNS: Reviewed. See [facility] GENERAL: comfortably supine; No acute distress. HEENT: oral mucosa moist, no JVD noted CV: normal heart rate today, regular rhythm without murmurs RESPIRATORY: lung sounds ronchorous at bases. Expiratory wheezes. ABD: grossly normal, active sounds, soft, nontender, not distended INCISION: wound approximated without signs of infection EXTREMITY: grossly normal motor function, no pedal edema, peripheral pulses 2+ b /l NEUROLOGIC EXAM: AOx3, obeys commands, no speech deficits. PSYCHIATRIC: normal mood and affect SKIN: no gross lesions, rashes, or skin changes - Labs 12/09/17 03:47 12/09/17 03:47 Diabetes panel 12/09/17 Range/Units 03:47 Sodium 140 (136-145) mEq/L Potassium 2.9 L (3.5-5.1) mEq/L Chloride 107 (98-107) mEq/L Carbon Dioxide 27 (23-29) mEq/L BUN 13 (8-23) mg/dL Creatinine 0.75 (0.60-1.20) mg/dL Glucose 138 H (70-105) mg/dL Calcium 7.3 L (8.6-10.3) mg/dL Calcium panel 12/09/17 12/09/17 Range/Units 03:47 03:47 Calcium 7.3 L (8.6-10.3) mg/dL Phosphorus 3.2 (2.7-4.5) mg/dL Pituitary panel 12/09/17 Range/Units 03:47 Sodium 140 (136-145) mEq/L Potassium 2.9 L (3.5-5.1) mEq/L Chloride 107 (98-107) mEq/L Carbon Dioxide 27 (23-29) mEq/L BUN 13 (8-23) mg/dL Creatinine 0.75 (0.60-1.20) mg/dL Glucose 138 H (70-105) mg/dL Calcium 7.3 L (8.6-10.3) mg/dL Adrenal panel 12/09/17 Range/Units 03:47 Sodium 140 (136-145) mEq/L Potassium 2.9 L (3.5-5.1) mEq/L Chloride 107 (98-107) mEq/L Carbon Dioxide 27 (23-29) mEq/L BUN 13 (8-23) mg/dL Creatinine 0.75 (0.60-1.20) mg/dL Glucose 138 H (70-105) mg/dL Calcium 7.3 L (8.6-10.3) mg/dL - VTE Documentation of Mechanical Device: Intermittent pneumatic compression device Consult Discharge Plan - Plan Referrals: Sloane Murphy DO [Primary Care Provider] - <Nadeem Chauhan - Last Filed: 12/09/17 12:56> Date of Encounter: 12/09/17 Objective Vital Signs - Last 8 Hours Temp Pulse Resp BP Pulse Ox 12/09/17 10:05 97.3 F L 93 15 110/56 90 12/09/17 06:32 98.3 F 80 16 114/66 90 Intake and Output 12/08/17 12/09/17 12/09/17 23:59 07:59 15:59 Intake Total 300 / 300 220 / 220 890 / 890 Output Total 350 / 350 0 / 0 Balance -50 / -50 220 / 220 890 / 890 Intake: IV Fluids 300 / 300 100 / 100 350 / 350 Magnesium Sulfate Premix 2gm/ 50 / 50 50mL 2 gm In 50 ml @ 50 mls/hr IVPB ONCE ONE Rx#:[id number] Zosyn 3.375 GM In 0.9 % Sodium 100 / 100 100 / 100 Chloride (Mini-Bag +) 100 ML @ 25 mls/hr IVPB Q8HR [facility] Rx#: [id number] Potassium Chloride 10 mEq/100mL 200 / 200 300 / 300 10 meq In 100 ml @ 100 mls/hr IVPB Q1H [facility] Rx#:[id number] Oral 0 / 0 120 / 120 540 / 540 Output: Urine 350 / 350 0 / 0 Other: Meal Breakfast Stool Size Moderate Moderate Large Stool Consistency liquid liquid liquid Stool Characteristics Mucoid Mucoid [place] Stool Color Brown Brown Brown Bright Red Blood Dark Red Blood Bright Red Blood # Urine Diapers 1 1 0 # Bowel Movement Diapers 1 1 1 Weight 64.7 kg Blood Glucose* 140 139 272 Patient Weight 12/09/17 23:59 Weight 64.7 kg - Labs 12/09/17 03:47 12/09/17 03:47 Diabetes panel 12/09/17 Range/Units 03:47 Sodium 140 (136-145) mEq/L Potassium 2.9 L (3.5-5.1) mEq/L Chloride 107 (98-107) mEq/L Carbon Dioxide 27 (23-29) mEq/L BUN 13 (8-23) mg/dL Creatinine 0.75 (0.60-1.20) mg/dL Glucose 138 H (70-105) mg/dL Calcium 7.3 L (8.6-10.3) mg/dL Calcium panel 12/09/17 12/09/17 Range/Units 03:47 03:47 Calcium 7.3 L (8.6-10.3) mg/dL Phosphorus 3.2 (2.7-4.5) mg/dL Pituitary panel 12/09/17 Range/Units 03:47 Sodium 140 (136-145) mEq/L Potassium 2.9 L (3.5-5.1) mEq/L Chloride 107 (98-107) mEq/L Carbon Dioxide 27 (23-29) mEq/L BUN 13 (8-23) mg/dL Creatinine 0.75 (0.60-1.20) mg/dL Glucose 138 H (70-105) mg/dL Calcium 7.3 L (8.6-10.3) mg/dL Adrenal panel 12/09/17 Range/Units 03:47 Sodium 140 (136-145) mEq/L Potassium 2.9 L (3.5-5.1) mEq/L Chloride 107 (98-107) mEq/L Carbon Dioxide 27 (23-29) mEq/L BUN 13 (8-23) mg/dL Creatinine 0.75 (0.60-1.20) mg/dL Glucose 138 H (70-105) mg/dL Calcium 7.3 L (8.6-10.3) mg/dL - Attending Attestation I examined this patient and my medical decision-making was reviewed with the Resident Physician. I agree with the documented findings, disposition and treatment plan as described except to the extent set forth below. Review the above assessment and evaluation and agree with the above plan. Patient is continued flatus and bowel movements. On the full liquids and decrease TPN by 50% with the hopes of stopping it completely tomorrow.
[2017-12-09] MEDS: Lactobacillus 1 EACH CAP.SPRINK PO SCH ×2 (08:42→22:20)
[2017-12-09] MEDS: Aspirin Enteric Coated 81 MG Tablet PO SCH (08:43)
[2017-12-09] MEDS: Diltiazem CD (24hr) 120 MG CAPSULE PO SCH (08:45)
[2017-12-09] MEDS: Fluticasone Propionate Nasal 50 MCG/SPRAY BOTTLE NS SCH (08:46)
[2017-12-09] MEDS: BuPROPion XL (24 HR) 150 MG TABLET PO SCH (08:47)
[2017-12-09] MEDS: Pantoprazole 40 MG VIAL IVP SCH (08:47)
[2017-12-09] MEDS: Potassium Chloride Elixir 20 MEQ/15 ML UDC PO SCH (08:47)
[2017-12-09] MEDS: Cyanocobalamin (B-12) 1,000 MCG TABLET PO SCH (08:47)
[2017-12-09] MEDS ORDERED: Benzonatate 100 MG CAPSULE PO PRN (08:50)
[2017-12-09] MEDS: Beclomethasone 80mcg MDI IH SCH ×2 (10:38→20:02)
[2017-12-09] MEDS ORDERED: Ipratropium/Albuterol Neb 3 ML IH PRN (13:38)
--- NOTE | 2017-12-09 15:29 | Internal Med Progress Note ---
Date of Encounter: 12/09/17 Time of Encounter: 09:20 - Assessment and plan (1) Small bowel obstruction Current Visit: Yes Status: Acute Assessment and plan: Status post celiotomy. Postop day 8. Continues to tolerate clear liquids. Plan to stop TPN later today. Surgery following. (2) HAP (hospital-acquired pneumonia) Current Visit: Yes Status: Acute Assessment and plan: Treating with IV antibiotics. Patient does have bilateral coarse crackles. Also having persistent cough. Dry cough. Will place her on cough suppressants for now. Cultures are negative. On Zosyn. WBC count is normal. Will transition patient to oral antibiotics. (3) Diabetes mellitus, type 2 Current Visit: Yes Status: Chronic Assessment and plan: Will change insulin regimen to before meals at bedtime once patient is taken off TPN. Also add long-acting insulin. Qualifiers: Diabetes mellitus fdc insulin use: without fdc use Diabetes mellitus complication status: without complication Qualified Code(s): E11.9 - Type 2 diabetes mellitus without complications (4) PAF (paroxysmal atrial fibrillation) Current Visit: Yes Status: Chronic Assessment and plan: Rate controlled and sinus rhythm currently. Continue Cardizem (5) CKD (chronic kidney disease) stage 3, GFR 30-59 ml/min Current Visit: Yes Status: Chronic Assessment and plan: Stable renal function (6) HTN (hypertension) Current Visit: Yes Status: Chronic Assessment and plan: Blood pressure remains well controlled Qualifiers: Hypertension type: essential hypertension Qualified Code(s): I10 - Essential (primary) hypertension (7) Chronic respiratory failure with hypoxia Current Visit: Yes Status: Chronic Assessment and plan: Continue O2 supplementation and wean FiO2 as tolerated. Patient does have underlying pulmonary fibrosis/emphysema and bronchiectasis. (8) Chronic diastolic heart failure Current Visit: Yes Status: Chronic Assessment and plan: Patient is receiving Lasix as needed. We will give another dose today. Continue oral potassium supplements. (9) DVT prophylaxis Current Visit: Yes Status: Acute Assessment and plan: Continue subcutaneous heparin - Time Spent With Patient Total time spent is greater than 50% in coordination of care (as documented) at patient's floor/unit and/or counseling patient: - Subjective Interval history: Patient not feeling good this morning mainly because she has had persistent cough. No sputum production. Tolerating clear liquid diet. No abdominal pain. No nausea or vomiting. Having bowel movements. - Constitutional Vitals: Temp Pulse Resp BP Pulse Ox 97.5 F L 86 18 109/67 93 12/09/17 15:21 12/09/17 15:21 12/09/17 15:21 12/09/17 15:21 12/09/17 15:21 General appearance: Present: cooperative, mild distress, A&O X 3, answers questions appropriately - Neck Neck exam general surgery: Present: supple, trachea midline. Absent: lymphadenopathy - Respiratory Respiratory exam: Present: CTAB, prolonged expiratory phase. Absent: accessory muscle use, rales, rhonchi, wheezes Additional comments: Bilateral coarse breath sounds - Cardiovascular Cardiovascular exam: Present: RRR, +S1, +S2. Absent: diastolic murmur, gallop, rubs, systolic murmur - GI/Abdominal GI/Abdominal exam: Present: normal bowel sounds, soft, no peritoneal signs. Absent: distended, tenderness - Extremities Exam Extremities exam: Present: warm, radial pulses palpable and symmetrical. Absent : calf tenderness, cyanotic, pedal edema - Neurological Exam Neurological exam: Present: alert, oriented X3, no focal deficits. Absent: facial droop, speech deficit Internal Medicine: Result - Labs CBC & Chem 7: 12/09/17 03:47 12/09/17 03:47 Labs: Short CBC 12/09/17 Range/Units 03:47 WBC 9.4 (4.3-11.1) K/mcL Hgb 7.8 L (11.5-15.4) g/dL Hct 24.3 L (35.3-44.9) % Plt Count 157 (140-400) K/mcL Neutrophils # 7.4 (1.6-8.9) K/mcL BMP 12/09/17 03:47 Sodium 140 Potassium 2.9 L Chloride 107 Carbon Dioxide 27 BUN 13 Creatinine 0.75 Glucose 138 H Calcium 7.3 L - ABG Interpretation ABG results: PT/INR, D-dimer PT 12.4 Seconds (9.4-12.1) H 11/26/17 11:09 - VTE Documentation of Mechanical Device: Intermittent pneumatic compression device Consult Discharge Plan - Plan Referrals: Sloane Murphy DO [Primary Care Provider] -
[2017-12-09] MEDS ORDERED: Furosemide 20 MG/2 ML VIAL IVP ONE (15:34)
[2017-12-09] MEDS: Magnesium Oxide 400 MG TABLET PO SCH ×2 (15:47→22:20)
[2017-12-10] MEDS: Piperacillin/Tazobactam 3.375 GM in 0.9 % Sodium Chloride Mini Bag 100 ML IVPB SCH ×2 (00:14→08:22)
[2017-12-10 04:10] LABS: Basophils % 0.3 %; Eosinophils # 0.2 K/mcL (0.0-0.6); Eosinophils % 1.4 %; Hematocrit 26.7 % (35.3-44.9); Hemoglobin 8.5 g/dL (11.5-15.4); Lymphocytes # 1.7 K/mcL (0.6-4.6); Lymphocytes % 13.8 %; Mean Corpuscular HGB Conc 31.8 g/dL (31.6-35.5); Mean Corpuscular Hemoglobin 29.7 pg (28.0-33.3); Mean Corpuscular Volume 93.4 fL (83.0-100.0); Mean Platelet Volume 10.3 fL (9.4-12.4); Monocytes # 0.6 K/mcL (0.0-1.3); Monocytes % 4.8 %; Neutrophils # 9.9 K/mcL (1.6-8.9); Platelet Count 179 K/mcL (140-400); Red Blood Count 2.86 M/mcL (3.82-4.97); Red Cell Distribution Width 15.4 % (11.5-14.5); Segmented Neutrophils % 78.7 %
[2017-12-10 04:25] LABS: Magnesium 1.5 mg/dL (1.6-2.6); Phosphorous 1.7 mg/dL (2.7-4.5)
[2017-12-10 04:27] LABS: BUN/Creatinine Ratio 20 (6-26); Blood Urea Nitrogen 13 mg/dL (8-23); Calcium 7.5 mg/dL (8.6-10.3); Carbon Dioxide 28 mEq/L (23-29); Chloride 108 mEq/L (98-107); Glucose 147 mg/dL (70-105); Osmolality,Calculated 295 (280-300); Potassium 3.5 mEq/L (3.5-5.1); Sodium 141 mEq/L (136-145); eGFR For African Americans > 60 (> 60); eGFR For Non-African Americans > 60 (> 60)
[2017-12-10] MEDS: Levalbuterol Neb 0.63 MG/3 ML IH SCH ×4 (05:11→21:17)
[2017-12-10] MEDS: Insulin LISPRO 300 UNITS/3 ML VIAL SQ SCH (07:43)
[2017-12-10] MEDS: Cyanocobalamin (B-12) 1,000 MCG TABLET PO SCH (08:15)
[2017-12-10] MEDS: Magnesium Oxide 400 MG TABLET PO SCH ×3 (08:15→21:29)
[2017-12-10] MEDS: BuPROPion XL (24 HR) 150 MG TABLET PO SCH (08:15)
[2017-12-10] MEDS: Potassium Chloride Elixir 20 MEQ/15 ML UDC PO SCH (08:15)
[2017-12-10] MEDS: Lactobacillus 1 EACH CAP.SPRINK PO SCH ×2 (08:15→21:29)
[2017-12-10] MEDS: Aspirin Enteric Coated 81 MG Tablet PO SCH (08:15)
[2017-12-10] MEDS: Fluticasone Propionate Nasal 50 MCG/SPRAY BOTTLE NS SCH (08:19)
[2017-12-10] MEDS ORDERED: Potassium Phosphate 44 MEQ in 0.9 % Sodium Chloride 250 ML IVPB ONE (08:51)
--- NOTE | 2017-12-10 09:27 | Event Note ---
Date of Encounter: 12/10/17 Time of Encounter: 09:23 May discharge from a surgery standpoint when the patient is medically stable from her pneumonia. - Patient Status Disposition: Home Health Service Condition: Good Functional capacity at discharge: independent ambulation Overall status at discharge: patient is progressing back to baseline - Discharge Instructions Follow Up With: Sloane Murphy DO [Primary Care Provider] - Nadeem Chauhan MD [Partnered Physician] - 12/22/17 10:00 am (Hospital follow -up) Additional Instructions: #1 may shower, no tub bath for 2 weeks #2 wash incisions with soap and water and pat dry daily #3 no lifting, pushing, pulling more than 15 pounds for the next 6 weeks #4 no driving until off narcotics for 24 hours and able to safely react in the car #5 may climb stairs Wound care- wash midline incision with antibacterial soap and cleanse with water daily in the shower and then pat dry, pack open area with a quarter inch plain gauze, cover with dry dressing and tape to secure daily - Diet and Activity Activity: other (See additional instructions above) Diet: advance to your usual diet (as tolerated)
--- NOTE | 2017-12-10 09:29 | General Surgery Progress Note ---
<Jose Francisco Zhang - Last Filed: 12/10/17 09:26> Date of Encounter: 12/10/17 Time of Encounter: 09:00 - Assessment and Plan (1) Small bowel obstruction Current Visit: Yes Status: Acute NG tube was removed on 12/04/2017. Advanced to full liquids on 12/05 but did not tolerate. TPN initiated. Tolerated restricted clears 12/07/17. Continues to have BMs. No nausea/vomiting/bloating/distention. Being treated by primary team with Iv Abx for LLL HAP. Plan: - POD#9 s/p ex-celiotomy on 12/01/17 - tolerated fulls; advance to soft today - discussed with hospitalist - consult for HH on discharge for wound care - medical management per primary team; clear for discharge from surgical standpoint - follow up and aftercare instructions in EVENT NOTE 12/10/17 - surgery to sign off at this time; call if needed for reassessment during inpatient stay Subjective Patient reports: no new complaints, feels better, tolerating liquids well, flatus, bowel movement, afebrile Objective Vital Signs - Last 8 Hours Temp Pulse Resp BP Pulse Ox 12/10/17 07:25 97.7 F 67 16 97/62 93 12/10/17 05:11 16 94 12/10/17 04:23 97.7 F 71 14 103/64 96 Intake and Output 12/09/17 12/10/17 12/10/17 23:59 07:59 15:59 Intake Total 1751 / 1751 460 / 460 Output Total 500 / 500 200 / 200 50 / 50 Balance 1251 / 1251 260 / 260 -50 / -50 Intake: IV Fluids 1391 / 1391 100 / 100 Clinimix E 5%-15% SOLUTION 2, 1291 / 1291 000 ML @ 60 mls/hr IVC .Q24H TALA with M.v.i. Adult 10 ml Rx# :[id number] Zosyn 3.375 GM In 0.9 % Sodium 100 / 100 100 / 100 Chloride (Mini-Bag +) 100 ML @ 25 mls/hr IVPB Q8HR TALA Rx#: [id number] Oral 360 / 360 360 / 360 Output: Urine/Stool Mix 500 / 500 200 / 200 50 / 50 Other: Meal Dinner Percent of Meal Consumed 5% Stool Size Moderate Stool Consistency liquid Stool Color Green # Bowel Movements 1 # Bowel Movement Diapers 1 Weight 64.637 kg Blood Glucose* 73 101 VITAL SIGNS: Reviewed. See [employer] GENERAL: comfortably supine; No acute distress. HEENT: oral mucosa moist, no JVD noted CV: normal heart rate today, regular rhythm without murmurs RESPIRATORY: lung sounds ronchorous at bases. Expiratory wheezes. ABD: grossly normal, active sounds, soft, nontender, not distended INCISION: wound approximated without signs of infection EXTREMITY: grossly normal motor function, no pedal edema, peripheral pulses 2+ b /l NEUROLOGIC EXAM: AOx3, obeys commands, no speech deficits. PSYCHIATRIC: normal mood and affect SKIN: no gross lesions, rashes, or skin changes - Labs 12/10/17 03:52 12/10/17 03:52 Diabetes panel 12/10/17 Range/Units 03:52 Sodium 141 (136-145) mEq/L Potassium 3.5 (3.5-5.1) mEq/L Chloride 108 H (98-107) mEq/L Carbon Dioxide 28 (23-29) mEq/L BUN 13 (8-23) mg/dL Creatinine 0.66 (0.60-1.20) mg/dL Glucose 147 H (70-105) mg/dL Calcium 7.5 L (8.6-10.3) mg/dL Calcium panel 12/10/17 12/10/17 Range/Units 03:52 03:52 Calcium 7.5 L (8.6-10.3) mg/dL Phosphorus 1.7 L (2.7-4.5) mg/dL Pituitary panel 12/10/17 Range/Units 03:52 Sodium 141 (136-145) mEq/L Potassium 3.5 (3.5-5.1) mEq/L Chloride 108 H (98-107) mEq/L Carbon Dioxide 28 (23-29) mEq/L BUN 13 (8-23) mg/dL Creatinine 0.66 (0.60-1.20) mg/dL Glucose 147 H (70-105) mg/dL Calcium 7.5 L (8.6-10.3) mg/dL Adrenal panel 12/10/17 Range/Units 03:52 Sodium 141 (136-145) mEq/L Potassium 3.5 (3.5-5.1) mEq/L Chloride 108 H (98-107) mEq/L Carbon Dioxide 28 (23-29) mEq/L BUN 13 (8-23) mg/dL Creatinine 0.66 (0.60-1.20) mg/dL Glucose 147 H (70-105) mg/dL Calcium 7.5 L (8.6-10.3) mg/dL - VTE Documentation of Mechanical Device: Intermittent pneumatic compression device Consult Discharge Plan - Plan Additional Instructions: #1 may shower, no tub bath for 2 weeks #2 wash incisions with soap and water and pat dry daily #3 no lifting, pushing, pulling more than 15 pounds for the next 6 weeks #4 no driving until off narcotics for 24 hours and able to safely react in the car #5 may climb stairs Wound care- wash midline incision with antibacterial soap and cleanse with water daily in the shower and then pat dry, pack open area with a quarter inch plain gauze, cover with dry dressing and tape to secure daily Referrals: Sloane Murphy, [Primary Care Provider] - Nadeem Chauhan MD [Partnered Physician] - 12/22/17 10:00 am (Hospital follow -up) <Nadeem Chauhan - Last Filed: 12/10/17 10:05> Date of Encounter: 12/10/17 Objective Vital Signs - Last 8 Hours Temp Pulse Resp BP Pulse Ox 12/10/17 07:25 97.7 F 67 16 97/62 93 12/10/17 05:11 16 94 12/10/17 04:23 97.7 F 71 14 103/64 96 Intake and Output 12/09/17 12/10/17 12/10/17 23:59 07:59 15:59 Intake Total 1751 / 1751 460 / 460 300 / 300 Output Total 500 / 500 200 / 200 50 / 50 Balance 1251 / 1251 260 / 260 250 / 250 Intake: IV Fluids 1391 / 1391 100 / 100 Clinimix E 5%-15% SOLUTION 2, 1291 / 1291 000 ML @ 60 mls/hr IVC .Q24H TALA with M.v.i. Adult 10 ml Rx# :[id number] Zosyn 3.375 GM In 0.9 % Sodium 100 / 100 100 / 100 Chloride (Mini-Bag +) 100 ML @ 25 mls/hr IVPB Q8HR COUNT INCLUDES THE [facility] Rx#: [id number] Oral 360 / 360 360 / 360 300 / 300 Output: Urine/Stool Mix 500 / 500 200 / 200 50 / 50 Other: Meal Dinner Breakfast Percent of Meal Consumed 5% 100% Stool Size Moderate Stool Consistency liquid Stool Color Green # Bowel Movements 1 # Bowel Movement Diapers 1 Weight 64.637 kg Blood Glucose* 73 101 - Labs 12/10/17 03:52 12/10/17 03:52 Diabetes panel 12/10/17 Range/Units 03:52 Sodium 141 (136-145) mEq/L Potassium 3.5 (3.5-5.1) mEq/L Chloride 108 H (98-107) mEq/L Carbon Dioxide 28 (23-29) mEq/L BUN 13 (8-23) mg/dL Creatinine 0.66 (0.60-1.20) mg/dL Glucose 147 H (70-105) mg/dL Calcium 7.5 L (8.6-10.3) mg/dL Calcium panel 12/10/17 12/10/17 Range/Units 03:52 03:52 Calcium 7.5 L (8.6-10.3) mg/dL Phosphorus 1.7 L (2.7-4.5) mg/dL Pituitary panel 12/10/17 Range/Units 03:52 Sodium 141 (136-145) mEq/L Potassium 3.5 (3.5-5.1) mEq/L Chloride 108 H (98-107) mEq/L Carbon Dioxide 28 (23-29) mEq/L BUN 13 (8-23) mg/dL Creatinine 0.66 (0.60-1.20) mg/dL Glucose 147 H (70-105) mg/dL Calcium 7.5 L (8.6-10.3) mg/dL Adrenal panel 12/10/17 Range/Units 03:52 Sodium 141 (136-145) mEq/L Potassium 3.5 (3.5-5.1) mEq/L Chloride 108 H (98-107) mEq/L Carbon Dioxide 28 (23-29) mEq/L BUN 13 (8-23) mg/dL Creatinine 0.66 (0.60-1.20) mg/dL Glucose 147 H (70-105) mg/dL Calcium 7.5 L (8.6-10.3) mg/dL - Attending Attestation I examined this patient and my medical decision-making was reviewed with the Resident Physician. I agree with the documented findings, disposition and treatment plan as described except to the extent set forth below. I reviewed the above assessment and evaluation and agree with the above plan. Will advance to soft and TPN has already been stopped. We will sign off; we will make sure the patient is a follow-up to see us in the office in 2 weeks. Thank you very much and please contact us if there are any questions or concerns.
[2017-12-10] MEDS: Diltiazem CD (24hr) 120 MG CAPSULE PO SCH (10:17)
[2017-12-10] MEDS: Beclomethasone 80mcg MDI IH SCH ×2 (11:18→21:16)
[2017-12-10] MEDS ORDERED: 0.9 % Sodium Chloride 250 ML IVC ONE (11:34)
--- NOTE | 2017-12-10 15:15 | Internal Med Progress Note ---
Date of Encounter: 12/10/17 Time of Encounter: 15:13 - Assessment and plan (1) Small bowel obstruction Current Visit: Yes Status: Acute Assessment and plan: Status post celiotomy. Continues to improve. Tolerating liquid diet well. Being transitioned to soft diet today. Continue supportive care. (2) HAP (hospital-acquired pneumonia) Current Visit: Yes Status: Acute Assessment and plan: Clinically getting better. Patient does have leukocytosis today but feels much better. Chest x-ray shows stable bilateral airspace and interstitial opacities. For now we will continue Augmentin and doxycycline. Plan to complete 14 day treatment course. (3) Diabetes mellitus, type 2 Current Visit: Yes Status: Chronic Assessment and plan: Blood sugars are well controlled. 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 Patient has been slightly hypotensive today. We will give a small fluid bolus. Continue Cardizem at current dose. 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 (6) HTN (hypertension) Current Visit: Yes Status: Chronic Qualifiers: Hypertension type: essential hypertension Qualified Code(s): I10 - Essential (primary) hypertension (7) Chronic respiratory failure with hypoxia Current Visit: Yes Status: Chronic Assessment and plan: Continue O2 supplementation. Patient does have pulmonary fibrosis, emphysema and bronchiectasis. (8) Chronic diastolic heart failure Current Visit: Yes Status: Chronic Assessment and plan: Given low BP hold off on lasix today. Will start PO Lasix tomorrow (9) DVT prophylaxis Current Visit: Yes Status: Acute Assessment and plan: On Sq heparin - Time Spent With Patient Total time spent is greater than 50% in coordination of care (as documented) at patient's floor/unit and/or counseling patient: - Subjective Interval history: Patient is feeling better today. Denies any fever or chills overnight. Cough is still present but not as discomforting as yesterday. No fever reported overnight. Responded well to Lasix. Is now being advanced to soft diet. - Constitutional Vitals: Temp Pulse Resp BP Pulse Ox 98.3 F 91 20 108/73 95 12/10/17 14:52 12/10/17 14:52 12/10/17 14:52 12/10/17 14:52 12/10/17 14:52 General appearance: Present: cooperative, mild distress, A&O X 3, answers questions appropriately - Neck Neck exam general surgery: Present: supple, trachea midline. Absent: lymphadenopathy - Respiratory Respiratory exam: Present: prolonged expiratory phase. Absent: accessory muscle use, rales, rhonchi, wheezes Additional comments: Coarse breath sounds bilaterally - Cardiovascular Cardiovascular exam: Present: RRR, +S1, +S2. Absent: diastolic murmur, gallop, rubs, systolic murmur - Extremities Exam Extremities exam: Present: warm, radial pulses palpable and symmetrical. Absent : calf tenderness, cyanotic, pedal edema - Neurological Exam Neurological exam: Present: alert, CN II-XII intact, oriented X3, no focal deficits. Absent: facial droop, speech deficit - Skin Skin exam: Present: dry, intact Internal Medicine: Result - Labs CBC & Chem 7: 12/10/17 03:52 12/10/17 03:52 Labs: Short CBC 12/10/17 Range/Units 03:52 WBC 12.6 H (4.3-11.1) K/mcL Hgb 8.5 L (11.5-15.4) g/dL Hct 26.7 L (35.3-44.9) % Plt Count 179 (140-400) K/mcL Neutrophils # 9.9 H (1.6-8.9) K/mcL BMP 12/10/17 03:52 Sodium 141 Potassium 3.5 Chloride 108 H Carbon Dioxide 28 BUN 13 Creatinine 0.66 Glucose 147 H Calcium 7.5 L - ABG Interpretation ABG results: PT/INR, D-dimer PT 12.4 Seconds (9.4-12.1) H 11/26/17 11:09 - Impressions Impressions Chest X-Ray 12/10/17 07:00 IMPRESSION: Stable chest with bilateral airspace and interstitial opacities. D/ / Julieta Mccurdy MD / Julieta Mccurdy MD Interpreting Provider: Julieta Mccurdy MD - VTE Documentation of Mechanical Device: Intermittent pneumatic compression device Consult Discharge Plan - Plan Additional Instructions: #1 may shower, no tub bath for 2 weeks #2 wash incisions with soap and water and pat dry daily #3 no lifting, pushing, pulling more than 15 pounds for the next 6 weeks #4 no driving until off narcotics for 24 hours and able to safely react in the car #5 may climb stairs Wound care- wash midline incision with antibacterial soap and cleanse with water daily in the shower and then pat dry, pack open area with a quarter inch plain gauze, cover with dry dressing and tape to secure daily Referrals: Sloane Murphy DO [Primary Care Provider] - Nadeem Chauhan MD [Partnered Physician] - 12/22/17 10:00 am (Hospital follow -up)
[2017-12-10] MEDS: Doxycycline 100 MG CAPSULE PO SCH (18:09)
[2017-12-10] MEDS ORDERED: Acetaminophen 325 MG TABLET PO PRN (21:04)
--- NOTE | 2017-12-10 23:22 | Electrocardiograph Report ---
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
[2017-12-11] MEDS: Levalbuterol Neb 0.63 MG/3 ML IH SCH ×2 (04:02→09:58)
[2017-12-11 04:13] LABS: Basophils % 0.2 %; Eosinophils # 0.2 K/mcL (0.0-0.6); Eosinophils % 2.2 %; Hematocrit 24.4 % (35.3-44.9); Hemoglobin 7.8 g/dL (11.5-15.4); Immature Granulocytes % 0.8 % (0-4); Lymphocytes # 1.9 K/mcL (0.6-4.6); Mean Corpuscular Hemoglobin 29.9 pg (28.0-33.3); Mean Corpuscular Volume 93.5 fL (83.0-100.0); Mean Platelet Volume 10.7 fL (9.4-12.4); Monocytes # 0.6 K/mcL (0.0-1.3); Monocytes % 5.2 %; Neutrophils # 7.7 K/mcL (1.6-8.9); Nucleated Red Blood Cells 0.2 /100 WBC (0); Platelet Count 216 K/mcL (140-400); Red Blood Count 2.61 M/mcL (3.82-4.97); Red Cell Distribution Width 15.5 % (11.5-14.5); Segmented Neutrophils % 73.6 %
[2017-12-11 04:32] LABS: BUN/Creatinine Ratio 26 (6-26); Blood Urea Nitrogen 14 mg/dL (8-23); Calcium 7.5 mg/dL (8.6-10.3); Carbon Dioxide 30 mEq/L (23-29); Chloride 110 mEq/L (98-107); Glucose 154 mg/dL (70-105); Magnesium 1.5 mg/dL (1.6-2.6); Osmolality,Calculated 296 (280-300); Potassium 4.2 mEq/L (3.5-5.1); Sodium 141 mEq/L (136-145); eGFR For African Americans > 60 (> 60); eGFR For Non-African Americans > 60 (> 60)
[2017-12-11 07:12] VITALS: BP 116/76
[2017-12-11] MEDS: GuaiFENesin Liq 200 MG/10 ML UDC PO PRN (07:24)
[2017-12-11] MEDS: Potassium Chloride Elixir 20 MEQ/15 ML UDC PO SCH (08:33)
[2017-12-11] MEDS: Cyanocobalamin (B-12) 1,000 MCG TABLET PO SCH (08:33)
[2017-12-11] MEDS: Diltiazem CD (24hr) 120 MG CAPSULE PO SCH (08:33)
[2017-12-11] MEDS: BuPROPion XL (24 HR) 150 MG TABLET PO SCH (08:33)
[2017-12-11] MEDS: Aspirin Enteric Coated 81 MG Tablet PO SCH (08:34)
[2017-12-11] MEDS: Fluticasone Propionate Nasal 50 MCG/SPRAY BOTTLE NS SCH (08:34)
[2017-12-11] MEDS: Lactobacillus 1 EACH CAP.SPRINK PO SCH (08:34)
[2017-12-11] MEDS: Magnesium Oxide 400 MG TABLET PO SCH (08:34)
[2017-12-11] MEDS: Doxycycline 100 MG CAPSULE PO SCH (08:39)
[2017-12-11] MEDS ORDERED: Furosemide 20 MG TABLET PO SCH (09:00)
--- NOTE | 2017-12-11 09:33 | Discharge Summary ---
- NOTES TO OUTPATIENT PROVIDER Notes to Outpatient Provider: Patient initially admitted with acute small bowel obstruction. Was treated with exploratory laparotomy and right celiotomy. Then required TPN supplement nutrition as she recovered. Level of pneumonia and was treated with broad-spectrum antibiotics. She does have underlying pulmonary fibrosis and chronic hypoxia requiring O2 supplementation. Presently she is improving and stable enough to be discharged to skilled rehabilitation later today. Orders not resulted at time of discharge: Pending orders 12/01/17 14:19 US anesthesia pain block [US] Routine Date of Encounter: 12/11/17 Time of Encounter: 09:27 - Discharge Diagnosis (1) Small bowel obstruction Priority: Primary Status: Acute (2) HAP (hospital-acquired pneumonia) Priority: Secondary Status: Acute (3) Diabetes mellitus, type 2 Priority: Secondary Status: Chronic Qualifiers: Diabetes mellitus residential insulin use: without exterminator use Diabetes mellitus complication status: without complication Qualified Code(s): E11.9 - Type 2 diabetes mellitus without complications (4) PAF (paroxysmal atrial fibrillation) Priority: Secondary Status: Chronic (5) CKD (chronic kidney disease) stage 3, GFR 30-59 ml/min Priority: Secondary Status: Chronic (6) HTN (hypertension) Priority: Secondary Status: Chronic Qualifiers: Hypertension type: essential hypertension Qualified Code(s): I10 - Essential (primary) hypertension (7) Chronic respiratory failure with hypoxia Priority: Secondary Status: Chronic (8) Chronic diastolic heart failure Priority: Secondary Status: Chronic (9) DVT prophylaxis Priority: Secondary Status: Acute Hospital course: Ms. Hebert is a 67 year old female patient with a history of diabetes, hypertension, chronic kidney disease, pulmonary fibrosis and chronic respiratory failure with hypoxia, diastolic heart failure who was hospitalized here with small bowel obstruction. She was evaluated by surgery and after she failed to improve with conservative management, she underwent right celiotomy. Since then she has had a prolonged stay in the hospital while she recuperated. She was placed on TPN initially and as her bowel function improved, she was transitioned to oral diet. She did not tolerate this at first so she was kept nothing by mouth again and started TPN continued. Eventually she improved and has been transitioned to oral diet. No longer on TPN. In the interim she developed pneumonia and has been started on treatment for this with antibiotics. She is clinically getting better. She will complete 2 more days of antibiotics to complete treatment course. At this time, she is stable to be discharged. She was evaluated by physical therapy and recommended placement to skilled rehabilitation. She will be discharged to skilled rehabilitation later today. I am discharging her on Lasix for 5 days as she did receive lots of fluids during her stay here and does have positive fluid balance. Chest x-ray does not show any signs of fluid overload. She will follow up with surgery after discharge and her primary care provider for further management of her chronic medical conditions. Discharge discussed with: patient, nurse - Time Spent with Patient Total time spent providing and/or coordinating discharge services: Greater than 30 minutes (45 min) - Discharge Medications Prescriptions: Amoxicillin/Clavulanate [Augmentin] 875 mg PO BIDWM #8 tablet Doxycycline 100 mg PO 0800,1900 #8 capsule Home Medications: Aspirin 81 mg PO DAILY 06/05/16 [History] Multivitamin [Multivitamins] 1 cap PO DAILY 06/05/16 [History] Calcium Carbonate [Calcium] 1,000 mg PO BID 04/28/17 [History] Ferrous Sulfate 325 mg PO DAILY 04/28/17 [History] Alosetron HCl 0.5 mg PO BID 08/19/17 [History] Baclofen [Lioresal] 10 mg PO TID PRN 08/19/17 [History] Cholecalciferol (D-3) [Vitamin D] 2,000 unit PO DAILY #30 tablet 08/25/17 [Rx] Albuterol Sulfate [Ventolin Hfa] 2 puff IH Q6H PRN 09/11/17 [History] Beclomethasone Diprop 80mcg [QVAR 80 mcg] 1 puff IH BID 09/11/17 [History] BuPROPion XL (24 HR) [Wellbutrin Xl] 150 mg PO DAILY 09/11/17 [History] Colestipol HCl [Colestid] 2 gm PO DAILY 10/29/17 [History] Cyanocobalamin (Vitamin B-12) [Vitamin B12] 1,000 mcg PO DAILY 10/29/17 [History ] Hyoscyamine SL [Levsin Sl] 0.125 mg SL Q4H PRN 10/29/17 [History] Meclizine [Antivert] 25 mg PO DAILY PRN 10/29/17 [History] Oxygen 2 l .ROUTE AD 10/29/17 [History] Albuterol Neb [Proventil Neb] 2.5 mg IH Q2H PRN inhsol 11/07/17 [Rx] Menthol [Cough Drops] 9.1 mg PO Q2H PRN lozenge 11/07/17 [Rx] Nitroglycerin 0.4 mg SL Q5MIN PRN tab.subl 11/07/17 [Rx] Lipase/Protease/Amylase [Micky Ramos 6,000 Units Capsule] 2 each PO ACHS #240 capsule.dr 11/17/17 [Rx] Diltiazem CD (24hr) [Cardizem CD] 120 mg PO DAILY 11/27/17 [History] Magnesium Oxide [Mag-Ox] 400 mg PO TID 11/27/17 [History] Amoxicillin/Clavulanate [Augmentin] 875 mg PO BIDWM #8 tablet 12/11/17 [Rx] Doxycycline 100 mg PO 0800,1900 #8 capsule 12/11/17 [Rx] Furosemide [Lasix] 20 mg PO DAILY 5 Days tablet 12/11/17 [Rx] GuaiFENesin Liq [Robitussin Liq] 200 mg PO Q6HR PRN udc 12/11/17 [Rx] Ipratropium/Albuterol Neb [Duoneb] 3 ml IH [id number] PRN inhsol 12/11/17 [Rx] Lactobacillus [Culturelle] 1 each PO BID cap.sprink 12/11/17 [Rx] Phos-NaK [Neutra-Phos] 1 each PO BID powd.pack 12/11/17 [Rx] Allergies/Adverse Reactions: 3 Allergy/AdvReac Type Severity Reaction Status Date / Time peanut Allergy Hives Verified 11/26/17 10:44 zinc Allergy Hives Verified 11/26/17 10:44 Sulfa (Sulfonamide AdvReac Mild constipatio Verified 11/26/17 10:44 Antibiotics) n Date of admission: 11/26/17 14:08 Primary care physician: Maribel Fernandez Consults: 11/26/17 15:24 Consult to Respiratory Therapy [CONS] Routine Reason for Consult: Home o2, br tx Time Notified: 15:26 Call Completed: No 11/26/17 16:54 Consult to Nutrition [CONS] Stat Comment: Consulting Provider: NUTRITION Reason for Dietary Consult: MST Score 11/30/17 08:50 Consult to Cardiology [CONS] Routine Comment: Consulting Provider: Cardiology Tonie Reason for Consult: Atrial fibrillation. Known to cardiology group. Call Completed: Yes 12/06/17 09:43 Consult to Invasive Line Access Team [CONS] Routine Reason for Consult: Picc Line Insertion Line Type: PICC 12/06/17 10:39 Consult to Nutrition [CONS] Routine Comment: Consulting Provider: NUTRITION Reason for Dietary Consult: TPN Start and Manage 12/09/17 16:29 OT [Consult to Occupational Therapy] [CONS] Routine Comment: Evaluate, develop and implement POC Reason for Consult: deconditioning Does patient have active BEDREST order?: No Is patient medically & hemodynamically stable?: Yes PT [Consult to Physical Therapy] [CONS] Routine Comment: Evaluate, develop and implement POC Reason for Consult: deconditioning Does patient have active BEDREST order?: No Is patient medically & hemodynamically stable?: Yes 12/10/17 09:29 Consult to Neurophysiologist [CONS] Routine Reason for SW Consult: assess for discharge needs- wound care Discharging clinician: Jp Shepard Anticipated date of discharge: 12/11/17 - Constitutional Vitals: Temp Pulse Resp BP Pulse Ox 98.0 F 65 16 116/76 96 12/11/17 07:11 12/11/17 07:11 12/11/17 07:11 12/11/17 07:11 12/11/17 07:11 General appearance: Present: cooperative, mild distress, A&O X 3, answers questions appropriately - Neck Neck exam general surgery: Present: supple, trachea midline. Absent: lymphadenopathy - Respiratory Respiratory exam: Present: prolonged expiratory phase. Absent: accessory muscle use, rales, rhonchi, wheezes Additional comments: Course breath sounds bilaterally - Cardiovascular Cardiovascular exam: Present: RRR, +S1, +S2. Absent: diastolic murmur, gallop, rubs, systolic murmur - GI/Abdominal GI/Abdominal exam: Present: normal bowel sounds, soft, no peritoneal signs. Absent: distended, tenderness - Extremities Exam Extremities exam: Present: warm, radial pulses palpable and symmetrical. Absent : calf tenderness, cyanotic, pedal edema - Neurological Exam Neurological exam: Present: alert, CN II-XII intact, oriented X3, no focal deficits. Absent: facial droop, speech deficit - Patient Status Disposition: Transfer SNF Condition: Good Functional capacity at discharge: wheelchair bound Overall status at discharge: patient is progressing back to baseline - Discharge Instructions Follow Up With: Nadeem Chauhan MD [Partnered Physician] - 12/22/17 10:00 am (Hospital follow -up) Sloane Murphy, [Primary Care Provider] - (In 1-2 weeks) Additional Instructions: #1 may shower, no tub bath for 2 weeks #2 wash incisions with soap and water and pat dry daily #3 no lifting, pushing, pulling more than 15 pounds for the next 6 weeks #4 no driving until off narcotics for 24 hours and able to safely react in the car #5 may climb stairs Wound care- wash midline incision with antibacterial soap and cleanse with water daily in the shower and then pat dry, pack open area with a quarter inch plain gauze, cover with dry dressing and tape to secure daily - Diet and Activity Activity: as per physical therapy Diet: diabetic diet, other (Soft diet and advance as tolerated.) - VTE Documentation of Mechanical Device: Intermittent pneumatic compression device
--- NOTE | 2017-12-11 09:39 | Physician Discharge Referral ---
ExtendedCare Referral Info Transfer To: [facility] Provider in Charge after Transfer: PCP Institutional Level of Care: Skilled - Diagnosis (1) Small bowel obstruction Priority: Primary Status: Acute (2) HAP (hospital-acquired pneumonia) Priority: Secondary Status: Acute (3) Diabetes mellitus, type 2 Priority: Secondary Status: Chronic (4) PAF (paroxysmal atrial fibrillation) Priority: Secondary Status: Chronic (5) CKD (chronic kidney disease) stage 3, GFR 30-59 ml/min Priority: Secondary Status: Chronic (6) HTN (hypertension) Priority: Secondary Status: Chronic (7) Chronic respiratory failure with hypoxia Priority: Secondary Status: Chronic (8) Chronic diastolic heart failure Priority: Secondary Status: Chronic (9) DVT prophylaxis Priority: Secondary Status: Acute Prognosis: Fair Aware of Diagnosis: Patient Aware of Prognosis: Patient - Transfer Medications Prescriptions: Amoxicillin/Clavulanate [Augmentin] 875 mg PO BIDWM #8 tablet Doxycycline 100 mg PO 0800,1900 #8 capsule Home Medications: Aspirin 81 mg PO DAILY 06/05/16 [History] Multivitamin [Multivitamins] 1 cap PO DAILY 06/05/16 [History] Calcium Carbonate [Calcium] 1,000 mg PO BID 04/28/17 [History] Ferrous Sulfate 325 mg PO DAILY 04/28/17 [History] Alosetron HCl 0.5 mg PO BID 08/19/17 [History] Baclofen [Lioresal] 10 mg PO TID PRN 08/19/17 [History] Cholecalciferol (D-3) [Vitamin D] 2,000 unit PO DAILY #30 tablet 08/25/17 [Rx] Albuterol Sulfate [Ventolin Hfa] 2 puff IH Q6H PRN 09/11/17 [History] Beclomethasone Diprop 80mcg [QVAR 80 mcg] 1 puff IH BID 09/11/17 [History] BuPROPion XL (24 HR) [Wellbutrin Xl] 150 mg PO DAILY 09/11/17 [History] Colestipol HCl [Colestid] 2 gm PO DAILY 10/29/17 [History] Cyanocobalamin (Vitamin B-12) [Vitamin B12] 1,000 mcg PO DAILY 10/29/17 [History ] Hyoscyamine SL [Levsin Sl] 0.125 mg SL Q4H PRN 10/29/17 [History] Meclizine [Antivert] 25 mg PO DAILY PRN 10/29/17 [History] Oxygen 2 l .ROUTE AD 10/29/17 [History] Albuterol Neb [Proventil Neb] 2.5 mg IH Q2H PRN inhsol 11/07/17 [Rx] Menthol [Cough Drops] 9.1 mg PO Q2H PRN lozenge 11/07/17 [Rx] Nitroglycerin 0.4 mg SL Q5MIN PRN tab.subl 11/07/17 [Rx] Lipase/Protease/Amylase [Cresherley Ramos 6,000 Units Capsule] 2 each PO ACHS #240 capsule.dr 11/17/17 [Rx] Diltiazem CD (24hr) [Cardizem CD] 120 mg PO DAILY 11/27/17 [History] Magnesium Oxide [Mag-Ox] 400 mg PO TID 11/27/17 [History] Amoxicillin/Clavulanate [Augmentin] 875 mg PO BIDWM #8 tablet 12/11/17 [Rx] Doxycycline 100 mg PO 0800,1900 #8 capsule 12/11/17 [Rx] Furosemide [Lasix] 20 mg PO DAILY 5 Days tablet 12/11/17 [Rx] GuaiFENesin Liq [Robitussin Liq] 200 mg PO Q6HR PRN udc 12/11/17 [Rx] Ipratropium/Albuterol Neb [Duoneb] 3 ml IH [id number] PRN inhsol 12/11/17 [Rx] Lactobacillus [Culturelle] 1 each PO BID cap.sprink 12/11/17 [Rx] Phos-NaK [Neutra-Phos] 1 each PO BID powd.pack 12/11/17 [Rx] Allergies/Adverse Reactions: 3 Allergy/AdvReac Type Severity Reaction Status Date / Time peanut Allergy Hives Verified 11/26/17 10:44 zinc Allergy Hives Verified 11/26/17 10:44 Sulfa (Sulfonamide AdvReac Mild constipatio Verified 11/26/17 10:44 Antibiotics) n - Respiratory Orders Oxygen / L per min (Keep sats >90%) Smoking Cessation: Smoking cessation has been advised. For more information, call the [place] Tobacco Quit Line at 9-777-OQOH-NOW. - Lab Orders Lab Orders: Other (include drug levels w/frequency) (CBC and BMP, magnesium and phosphorus in 3 days) - Ancillary Orders May use pressure relief devices daily prn - Advance Directives Code Status: Full Code - Rehabiliation Orders Rehab Potential: Fair Rehab Orders: Evaluation for Physical Therapy, Evaluation for Occupational Therapy - Diet Orders Mechanical Soft CERTIFICATION: I certify that the transfer of the above named patient to an Extended Care Facility is necessary for the continuing treatment of the diagnosis listed. The above information is true and accurate reflection of patient's current condition. Confidential - Redisclosure prohibited without a patient's written consent.
[2017-12-11] MEDS: Beclomethasone 80mcg MDI IH SCH (09:58)
== END 2017-12-11 11:34 | DRG 335 ==
LOC: EMEROO 10:32 → SUATTDRO 14:08 → 3ANU 14:08
PROVIDERS: ADMIT Internal Medicine; ATTEND Internal Medicine

== ENCOUNTER 2017-12-13 22:25 | Inpatient (IN) ==
--- NOTE | 2017-12-14 01:50 | Internal Med History&Physical ---
Date of Encounter: 12/14/17 Time of Encounter: 01:43 Internal Medicine - H&P: HPI Chief complaint: SBO Admitted From: Direct Admit Plans for Post Hospital Care: Home History of present illness: Ms. Hebert is a 67 year old female with history of DM, HTN, CKD, pulmonary fibrosis on O2, diastolic HF who is transferred from [facility] for concerns of recurring SBO. The patient was recently discharged from here on to swing bed after a stay for SBO for which a celiotomy and lysis of adhesion was done by Dr Chauhan. Stay was complicated by prolonged recovery needing TPN and pneumonia for which she finished abx. She receieved so much fluids and ended up discharged on lasix. At [facility] today she started having multiple episodes of nausea and vomiting again and CT ordered showed increased small bowel distention with multiple air-fluid levels and relatively collapsed colon suggesting developing obstruction in the distal small bowel. IV fluids were given and an NG tube was placed and surgery were consulted from there and recommended transfer here. The patient had multiple loose stools yesterday and C. difficile was checked and was negative. Labs done earlier showed WBC of 30.2 and elevated platelets. Kidney function and rest of labs showed signs of dehydration. CXR showed bilateral opacities but those were present from previous pneumonia. Was given cipro/flagyl and sent here. Upon arrival here, patient is tachycardic but otherwise stable. She has abdominal pain. No fever/ chills/chest pain/shortness of breath/urinary symptoms/neruologcial symptoms. Past Med Surg Social Fam HX - Past Medical History Medical history: atrial fibrillation, CHF, COPD, coronary artery disease, diabetes, hyperlipidemia, hypertension, myocardial infarction, other Psychiatric history: no psych history - Past Surgical History Surgical History: hysterectomy, orthopedic, other, pacemaker/AICD, other - Social History Smoking Status: Never smoker Smokeless Tobacco Status: No Alcohol use: none Drug use: none - Family History Father Living Status: Hx Family Cardiac Disorders: No Hx Family Respiratory Disorders: Yes (copd) Hx Family Cancer: No Hx Family GI Disorders: No Hx Family Genitourinary Disorders: No Hx Family Endocrine Disorder: No Hx Family Musculoskeletal Disorders: No Hx Family Neuromuscular Disorders: No Hx Family Neurologic Disorders: No Hx Family HEENT Disorders: No Hx Family Autoimmune Disorders: No Hx Family Reproductive Disorders: No Hx Family Psychosocial Disorders: No Hx Family Medical Disorders: No Mother Living Status: Hx Family Cardiac Disorders: Yes Hx Family Endocrine Disorder: Yes Internal Medicine - H&P: Meds Aspirin 81 mg PO DAILY 06/05/16 [History] Multivitamin [Multivitamins] 1 cap PO DAILY 06/05/16 [History] Calcium Carbonate [Calcium] 1,000 mg PO BID 04/28/17 [History] Ferrous Sulfate 325 mg PO DAILY 04/28/17 [History] Alosetron HCl 0.5 mg PO BID 08/19/17 [History] Baclofen [Lioresal] 10 mg PO TID PRN 08/19/17 [History] Cholecalciferol (D-3) [Vitamin D] 2,000 unit PO DAILY #30 tablet 08/25/17 [Rx] Albuterol Sulfate [Ventolin Hfa] 2 puff IH Q6H PRN 09/11/17 [History] Beclomethasone Diprop 80mcg [QVAR 80 mcg] 1 puff IH BID 09/11/17 [History] BuPROPion XL (24 HR) [Wellbutrin Xl] 150 mg PO DAILY 09/11/17 [History] Colestipol HCl [Colestid] 2 gm PO DAILY 10/29/17 [History] Cyanocobalamin (Vitamin B-12) [Vitamin B12] 1,000 mcg PO DAILY 10/29/17 [History ] Hyoscyamine SL [Levsin Sl] 0.125 mg SL Q4H PRN 10/29/17 [History] Meclizine [Antivert] 25 mg PO DAILY PRN 10/29/17 [History] Oxygen 2 l .ROUTE AD 10/29/17 [History] Albuterol Neb [Proventil Neb] 2.5 mg IH Q2H PRN inhsol 11/07/17 [Rx] Menthol [Cough Drops] 9.1 mg PO Q2H PRN lozenge 11/07/17 [Rx] Nitroglycerin 0.4 mg SL Q5MIN PRN tab.subl 11/07/17 [Rx] Lipase/Protease/Amylase [Micky Ramos 6,000 Units Capsule] 2 each PO ACHS #240 capsule. 11/17/17 [Rx] Diltiazem CD (24hr) [Cardizem CD] 120 mg PO DAILY 11/27/17 [History] Magnesium Oxide [Mag-Ox] 400 mg PO TID 11/27/17 [History] Amoxicillin/Clavulanate [Augmentin] 875 mg PO BIDWM #8 tablet 12/11/17 [Rx] Doxycycline 100 mg PO 0800,1900 #8 capsule 12/11/17 [Rx] Furosemide [Lasix] 20 mg PO DAILY 5 Days tablet 12/11/17 [Rx] GuaiFENesin Liq [Robitussin Liq] 200 mg PO Q6HR PRN udc 12/11/17 [Rx] Ipratropium/Albuterol Neb [Duoneb] 3 ml IH [id number] PRN inhsol 12/11/17 [Rx] Lactobacillus [Culturelle] 1 each PO BID cap.sprink 12/11/17 [Rx] Phos-NaK [Neutra-Phos] 1 each PO BID powd.pack 12/11/17 [Rx] 3 Allergy/AdvReac Type Severity Reaction Status Date / Time peanut Allergy Hives Verified 11/26/17 10:44 zinc Allergy Hives Verified 11/26/17 10:44 Sulfa (Sulfonamide AdvReac Mild constipatio Verified 11/26/17 10:44 Antibiotics) n All Systems PM: A 10-system review of systems was performed and is negative for pertinent findings except as documented above in the HPI. Review of systems: All systems reviewed are negative except as mentioned above - Constitutional Vitals: Temp Pulse Resp BP Pulse Ox 98.3 F 121 15 121/79 98 12/14/17 01:11 12/14/17 01:11 12/14/17 01:11 12/14/17 01:11 12/14/17 01:11 Exam: GEN: NAD HEENT: AT, NC, No cyanosis, oral mucosa is moist, No JVD, NG tube in place. Lymphatics: No lymphadenoapthy Eyes: Extrocular muscles intact, anicteric CVS: Tachycardic and irregular. S1, S2, No m/r/g RESP: CTAB ABD: Soft, NT, ND, hypoactive bowel signs EXT: No edema, No rashes, 2+ DP NEURO: Nonfocal, CN II-XII intact, No focal motor or sensory deficits Psych: Cooperative, Not anxious or depressed - Assessment and plan (1) Small bowel obstruction Current Visit: No Status: Acute Assessment and plan: c/s surgery. NPO. NG tube. Pain control. Anti-emetics. IV fluids. check lactic acid stat. Leukocytosis is likely reactive and dehydrational. (2) Leukocytosis Current Visit: Yes Status: Acute Assessment and plan: Has bandemia as well. I believe some of this is dehydrational however given the degree of leukocytosis and bandemia I will start her on broad-spectrum antibiotics. Check blood cultures. Check lactic acid. Treated for both respiratory and abdominal etiology. C. difficile was negative on 12/11. Patient no longer has loose stools. Qualifiers: Leukocytosis type: bandemia Qualified Code(s): D72.825 - Bandemia (3) Chronic respiratory failure Current Visit: Yes Status: Acute Assessment and plan: Patient is at baseline but given overall picture, will treat for HCAP and put the patient on vanco and zosyn and cover both respiratory and GI micro. Nebs. O2 support. Qualifiers: Respiratory failure complication: unspecified whether with hypoxia or hypercapnia Qualified Code(s): J96.10 - Chronic respiratory failure, unspecified whether with hypoxia or hypercapnia (4) Diabetes mellitus, type 2 Current Visit: No Status: Chronic Assessment and plan: sliding scale insulin. Accuchecks. Qualifiers: Diabetes mellitus longterm insulin use: without ferry terminal agent use Diabetes mellitus complication status: without complication Qualified Code(s): E11.9 - Type 2 diabetes mellitus without complications (5) HTN (hypertension) Current Visit: No Status: Chronic Assessment and plan: Resume anti-hypertensives Qualifiers: Hypertension type: essential hypertension Qualified Code(s): I10 - Essential (primary) hypertension (6) DERREK (acute kidney injury) Current Visit: No Status: Resolved Assessment and plan: Will hydrate. labs in am. likely due to GI losses (7) PAF (paroxysmal atrial fibrillation) Current Visit: No Status: Chronic Assessment and plan: Will get an EKG. Likely exacerbated by volume loss. Will give IV fluids and restart cardiac meds (8) DVT prophylaxis Current Visit: No Status: Acute Assessment and plan: heparin SQ - Time Spent With Patient Total time spent is greater than 50% in coordination of care (as documented) at patient's floor/unit and/or counseling patient:
[2017-12-14] MEDS ORDERED: *HR* Promethazine 25 MG/ML VIAL IVP PRN (02:00)
[2017-12-14] MEDS ORDERED: Dextrose Gel 15 GM/37.5 ML TUBE PO PRN ×2 (02:01)
[2017-12-14] MEDS ORDERED: *HR* Dextrose 50 % in Water (Syg) 50 ML SYRINGE IVP PRN (02:01)
[2017-12-14] MEDS ORDERED: D5% in Water 1,000 ML IVC PRN (02:01)
[2017-12-14] MEDS ORDERED: Naloxone 0.4 MG/ML INJ IVP PRN (02:01)
[2017-12-14] MEDS ORDERED: Acetaminophen 325 MG TABLET PO PRN (02:01)
[2017-12-14] MEDS ORDERED: *HR* FentaNYL (PF) 100 MCG/2 ML VIAL IVP PRN (02:02)
[2017-12-14] MEDS: 0.9 % Sodium Chloride 1,000 ML IVC SCH ×2 (02:57→16:00)
[2017-12-14 03:04] LABS: Basophils % 0.2 %; Red Cell Distribution Width 15.9 % (11.5-14.5)
[2017-12-14 03:06] LABS: Basophils # 0.1 K/mcL (0.0-0.2); Hematocrit 27.5 % (35.3-44.9); Hemoglobin 8.6 g/dL (11.5-15.4); Immature Granulocytes % 1.8 % (0-4); Lymphocytes # 2.1 K/mcL (0.6-4.6); Lymphocytes % 6.3 %; Mean Corpuscular HGB Conc 31.3 g/dL (31.6-35.5); Mean Corpuscular Hemoglobin 29.1 pg (28.0-33.3); Mean Corpuscular Volume 92.9 fL (83.0-100.0); Mean Platelet Volume 10.1 fL (9.4-12.4); Monocytes # 1.1 K/mcL (0.0-1.3); Monocytes % 3.2 %; Neutrophils # 29.5 K/mcL (1.6-8.9); Platelet Count 424 K/mcL (140-400); Red Blood Count 2.96 M/mcL (3.82-4.97); Segmented Neutrophils % 88.5 %
[2017-12-14 03:10] LABS: INR 1.3; Prothrombin Time 13.7 Seconds (9.4-12.1)
[2017-12-14 03:27] LABS: Alanine Aminotransferase 16 Units/L (7-52); Albumin 2.5 g/dL (3.5-5.7); Albumin/Globulin Ratio 0.8 (1.1-2.2); Alkaline Phosphatase 87 Units/L (34-104); Aspartate Amino Transferase 26 Units/L (13-39); BUN/Creatinine Ratio 18 (6-26); Bilirubin,Total 0.4 mg/dL (0.3-1.0); Blood Urea Nitrogen 20 mg/dL (8-23); Calcium 8.7 mg/dL (8.6-10.3); Carbon Dioxide 37 mEq/L (23-29); Chloride 100 mEq/L (98-107); Globulin 3.2 g/dL (2.4-3.5); Glucose 141 mg/dL (70-105); Magnesium 1.6 mg/dL (1.6-2.6); Osmolality,Calculated 297 (280-300); Potassium 5.1 mEq/L (3.5-5.1); Sodium 141 mEq/L (136-145); Total Protein 5.7 g/dL (6.4-8.9); eGFR For African Americans > 60 (> 60); eGFR For Non-African Americans 50 (> 60)
[2017-12-14] MEDS ORDERED: 0.9 % Sodium Chloride 1,000 ML IVC ONE (03:27)
[2017-12-14 03:33] LABS: Platelet Estimate Increased (Normal)
[2017-12-14] MEDS: *HR* Heparin 5,000 UNIT/ML VIAL SQ SCH ×3 (05:02→21:18)
[2017-12-14] MEDS: Insulin LISPRO 300 UNITS/3 ML VIAL SQ SCH ×4 (05:25→23:30)
[2017-12-14] MEDS: Piperacillin/Tazobactam 3.375 GM in 0.9 % Sodium Chloride Mini Bag 100 ML IVPB SCH ×3 (09:35→23:31)
--- NOTE | 2017-12-14 10:30 | General Surgery Consult Note ---
<TienRichardNadeem M - Last Filed: 12/15/17 07:03> Date of Encounter: 12/14/17 Medications and Allergies Aspirin 81 mg PO DAILY 06/05/16 [History] Multivitamin [Multivitamins] 1 cap PO DAILY 06/05/16 [History] Calcium Carbonate [Calcium] 1,000 mg PO BID 04/28/17 [History] Ferrous Sulfate 325 mg PO DAILY 04/28/17 [History] Alosetron HCl 0.5 mg PO BID 08/19/17 [History] Baclofen [Lioresal] 10 mg PO TID PRN 08/19/17 [History] Cholecalciferol (D-3) [Vitamin D] 2,000 unit PO DAILY #30 tablet 08/25/17 [Rx] Albuterol Sulfate [Ventolin Hfa] 2 puff IH Q6H PRN 09/11/17 [History] Beclomethasone Diprop 80mcg [QVAR 80 mcg] 1 puff IH BID 09/11/17 [History] BuPROPion XL (24 HR) [Wellbutrin Xl] 150 mg PO DAILY 09/11/17 [History] Colestipol HCl [Colestid] 2 gm PO DAILY 10/29/17 [History] Cyanocobalamin (Vitamin B-12) [Vitamin B12] 1,000 mcg PO DAILY 10/29/17 [History ] Hyoscyamine SL [Levsin Sl] 0.125 mg SL Q4H PRN 10/29/17 [History] Meclizine [Antivert] 25 mg PO DAILY PRN 10/29/17 [History] Oxygen 2 l .ROUTE AD 10/29/17 [History] Albuterol Neb [Proventil Neb] 2.5 mg IH Q2H PRN inhsol 11/07/17 [Rx] Nitroglycerin 0.4 mg SL Q5MIN PRN tab.subl 11/07/17 [Rx] Lipase/Protease/Amylase [Micky Ramos 6,000 Units Capsule] 2 each PO ACHS #240 capsule. 11/17/17 [Rx] Diltiazem CD (24hr) [Cardizem CD] 120 mg PO DAILY 11/27/17 [History] Magnesium Oxide [Mag-Ox] 400 mg PO TID 11/27/17 [History] Amoxicillin/Clavulanate [Augmentin] 875 mg PO BIDWM #8 tablet 12/11/17 [Rx] Doxycycline 100 mg PO 0800,1900 #8 capsule 12/11/17 [Rx] Furosemide [Lasix] 20 mg PO DAILY 5 Days tablet 12/11/17 [Rx] GuaiFENesin Liq [Robitussin Liq] 200 mg PO Q6HR PRN udc 12/11/17 [Rx] Ipratropium/Albuterol Neb [Duoneb] 3 ml IH [id number] PRN inhsol 12/11/17 [Rx] Lactobacillus [Culturelle] 1 each PO BID cap.sprink 12/11/17 [Rx] Phos-NaK [Neutra-Phos] 1 each PO BID powd.pack 12/11/17 [Rx] 3 Allergy/AdvReac Type Severity Reaction Status Date / Time peanut Allergy Hives Verified 11/26/17 10:44 zinc Allergy Hives Verified 11/26/17 10:44 Sulfa (Sulfonamide AdvReac Mild constipatio Verified 11/26/17 10:44 Antibiotics) n Review of Systems All systems PM: The remainder of the systems were reviewed and are negative General Surgery Exam Initial Vital Signs Temp Pulse Resp BP Pulse Ox 98.3 F 121 15 121/79 98 12/14/17 01:11 12/14/17 01:11 12/14/17 01:11 12/14/17 01:11 12/14/17 01:11 Exam Initial Vital Signs Temp Pulse Resp BP Pulse Ox 98.3 F 121 15 121/79 98 12/14/17 01:11 12/14/17 01:11 12/14/17 01:11 12/14/17 01:11 12/14/17 01:11 Results - Labs 12/15/17 03:50 12/15/17 03:50 Abnormal lab results WBC 11.5 K/mcL (4.3-11.1) H D 12/15/17 03:50 RBC 2.56 M/mcL (3.82-4.97) L 12/15/17 03:50 Hgb 7.6 g/dL (11.5-15.4) L 12/15/17 03:50 Hct 24.8 % (35.3-44.9) L 12/15/17 03:50 MCHC 30.6 g/dL (31.6-35.5) L 12/15/17 03:50 RDW 16.1 % (11.5-14.5) H 12/15/17 03:50 Neutrophils # 9.3 K/mcL (1.6-8.9) H 12/15/17 03:50 Platelet Estimate Increased (Normal) H 12/14/17 02:49 PT 13.7 Seconds (9.4-12.1) H 12/14/17 02:49 Carbon Dioxide 31 mEq/L (23-29) H 12/15/17 03:50 Glucose 59 mg/dL (70-105) L 12/15/17 03:50 POC Glucose 63 mg/dL (70-99) L 12/14/17 21:15 Calcium 7.8 mg/dL (8.6-10.3) L 12/15/17 03:50 Serum Total Protein 5.7 g/dL (6.4-8.9) L 12/14/17 02:49 Albumin 2.5 g/dL (3.5-5.7) L 12/14/17 02:49 Albumin/Globulin Ratio 0.8 (1.1-2.2) L 12/14/17 02:49 Prealbumin 9.4 mg/dL (17.0-34.0) L 12/14/17 13:58 Diabetes panel 12/14/17 12/15/17 Range/Units 02:49 03:50 Sodium 141 143 (136-145) mEq/L Potassium 5.1 4.0 (3.5-5.1) mEq/L Chloride 100 107 (98-107) mEq/L Carbon Dioxide 37 H 31 H (23-29) mEq/L BUN 20 12 (8-23) mg/dL Creatinine 1.09 0.79 (0.60-1.20) mg/dL Glucose 141 H 59 L (70-105) mg/dL Calcium 8.7 7.8 L (8.6-10.3) mg/dL AST 26 (13-39) Units/L ALT 16 (7-52) Units/L Alkaline Phosphatase 87 (34-104) Units/L Albumin 2.5 L (3.5-5.7) g/dL Calcium panel 12/14/17 12/15/17 Range/Units 02:49 03:50 Calcium 8.7 7.8 L (8.6-10.3) mg/dL Phosphorus 3.4 (2.7-4.5) mg/dL Albumin 2.5 L (3.5-5.7) g/dL Pituitary panel 12/14/17 12/15/17 Range/Units 02:49 03:50 Sodium 141 143 (136-145) mEq/L Potassium 5.1 4.0 (3.5-5.1) mEq/L Chloride 100 107 (98-107) mEq/L Carbon Dioxide 37 H 31 H (23-29) mEq/L BUN 20 12 (8-23) mg/dL Creatinine 1.09 0.79 (0.60-1.20) mg/dL Glucose 141 H 59 L (70-105) mg/dL Calcium 8.7 7.8 L (8.6-10.3) mg/dL Adrenal panel 12/14/17 12/15/17 Range/Units 02:49 03:50 Sodium 141 143 (136-145) mEq/L Potassium 5.1 4.0 (3.5-5.1) mEq/L Chloride 100 107 (98-107) mEq/L Carbon Dioxide 37 H 31 H (23-29) mEq/L BUN 20 12 (8-23) mg/dL Creatinine 1.09 0.79 (0.60-1.20) mg/dL Glucose 141 H 59 L (70-105) mg/dL Calcium 8.7 7.8 L (8.6-10.3) mg/dL Total Bilirubin 0.4 (0.3-1.0) mg/dL AST 26 (13-39) Units/L ALT 16 (7-52) Units/L Alkaline Phosphatase 87 (34-104) Units/L Albumin 2.5 L (3.5-5.7) g/dL All other labs normal. Consult Discharge Plan - Plan Referrals: Sloane Murphy DO [Primary Care Provider] - Edmund Ritchie [Partnered Physician] - 12/31/17 3:30 pm - Attending Attestation I examined this patient and my medical decision-making was reviewed with the Resident Physician. I agree with the documented findings, disposition and treatment plan as described except to the extent set forth below. Review the above assessment and evaluation and agree with the above plan. Unsure as to the etiology behind her symptoms of ileus versus partial small bowel obstruction. Patient has similar symptoms she had prior to surgery and the surgical expiration did show transition zone of the small bowel with no evidence of a kink or mass effect. I personally reviewed the CT scan images which does show some air within the sigmoid colon but there is compression. Agree with NG tube decompression. Unfortunately she may require repeat exploration of the entire abdomen to ensure that there is no postoperative adhesion or other mechanical source behind her symptoms. <Cristobal Morris - Last Filed: 12/16/17 12:37> Date of Encounter: 12/16/17 Time of Encounter: 07:30 Assessment and Plan (1) Small bowel obstruction Current Visit: No Status: Acute Patient was having bowel movements until 5 PM yesterday. She displays normal bowel sounds on exam. She has improved nausea since having an NG tube placed. Patient has an elevated white blood cell count currently of 33.3. She is afebrile. She is tachycardic with a range of 102-121. Liver enzymes normal with an AST of 26, ALT of 16, alkaline phosphatase of 87. Given she has normal bowel sounds, no acute abdominal pain, and was having bowel movements until yesterday, her leukocytosis to a bowel obstruction seems unlikely, however we will order imaging for further evaluation. - Ordered acute abdominal series x-ray to evaluate bowel gas. - Continue NPO. - Continue NGT. - We will continue to observe for now. (2) Leukocytosis Current Visit: Yes Status: Acute Qualifiers: Leukocytosis type: bandemia Qualified Code(s): D72.825 - Bandemia History of Present Illness Consult date: 12/14/17 Requesting physician: Mago Iglesias History of present illness: Ms. Hebert is a 67 year old female patient with a history of diabetes, hypertension, chronic kidney disease, pulmonary fibrosis and chronic respiratory failure with hypoxia, diastolic heart failure, atrial fibrillation, CAD, and LA who was hospitalized here at [facility] on 11/26/17 for small bowel obstruction. CT of the abdomen that time showed several scattered colonic diverticula along with a small bowel obstruction with a transition point not clearly seen. Surgery was consulted and we proceeded with conservative measures by making her NPO and utilizing an NG tube. Patient had bowel sounds and was passing gas, but she had not produced a BM for 4 days. She subsequently began to complain of abdominal bloating and nausea and was then taken to the OR on 12/01/17 where she had an exploratory celiotomy performed. She had a prolonged recovery by not being able to tolerate food at first and was placed on TPN, until she was able to be transitioned to oral diet. During her stay, she also developed PNA and was started on antibiotics, where she was able to improve and was discharged to a SNF at [facility] on 12/11/17. Later that day, patient reported complaints of weakness. She then proceeded to recurrent vomiting and was complaining of diarrhea and mild abdominal discomfort. C. Diff test was negative, CT of the chest showed improvement of her PNA, however CT of the abdomen showed small bowel distention with multiple air-fluid levels concerning for obstruction. She also displayed a leukocytosis with a WBC count of 30.2 with a left shift on CBC. She was transferred to [facility] today for further evaluation for small bowel obstruction. When seen today patient admits to some nausea as well as vomiting yesterday about 4-5 times. She denies any hematemesis. She says her last bowel movement was yesterday around 5 PM. She does admit to passing gas currently. She denies any abdominal bloating. Denies any fever, chest pain, or shortness of breath. Past Med Surg Social Fam HX - Past Medical History Medical history: atrial fibrillation, CHF, COPD, coronary artery disease, diabetes, hyperlipidemia, hypertension, myocardial infarction, other Psychiatric history: no psych history - Past Surgical History Surgical History: hysterectomy, orthopedic, other, pacemaker/AICD, other - Social History Smoking Status: Never smoker Smokeless Tobacco Status: No Alcohol use: none Drug use: none - Family History Father Living Status: Hx Family Cardiac Disorders: No Hx Family Respiratory Disorders: Yes (copd) Hx Family Cancer: No Hx Family GI Disorders: No Hx Family Genitourinary Disorders: No Hx Family Endocrine Disorder: No Hx Family Musculoskeletal Disorders: No Hx Family Neuromuscular Disorders: No Hx Family Neurologic Disorders: No Hx Family HEENT Disorders: No Hx Family Autoimmune Disorders: No Hx Family Reproductive Disorders: No Hx Family Psychosocial Disorders: No Hx Family Medical Disorders: No Mother Living Status: Hx Family Cardiac Disorders: Yes Hx Family Endocrine Disorder: Yes Review of Systems All systems PM: The remainder of the systems were reviewed and are negative - Constitutional weakness, no fever(s) - Cardiovascular no chest pain, no dyspnea - Respiratory cough - Gastrointestinal diarrhea, vomiting, no abdominal pain, no hematemesis, no melena General Surgery Exam Initial Vital Signs Temp Pulse Resp BP Pulse Ox 98.3 F 121 15 121/79 98 12/14/17 01:11 12/14/17 01:11 12/14/17 01:11 12/14/17 01:11 12/14/17 01:11 - Respiratory normal expansion, normal respiratory effort, clear to percussion, clear to auscultation - Cardiovascular Cardiovascular exam: Present: irregular rhythm. Absent: tachycardia - Expanded Cardiovascular Exam Peripheral pulses: 2+: Radial (L), Radial (R), Posterior Tibialis (L), Posterior Tibialis (R), Dorsalis Pedis (L) PM, Dorsalis Pedis (R) PM - Abdomen Abdomen general surgery: Present: bowel sounds present, soft, non tender, surgical scars Abdominal Tenderness: Present: LLQ (Incision intact. Minor signs of serosanguineous drainage. Clean with no signs of infection, edema, erythema, or pus.) - Neurologic Absent: confused - Psychiatric Psychiatric general surgery: Present: appropriate, oriented to person, oriented to place, oriented to time, speech is normal, memory intact - Additional Findings Extremity: No calf tenderness bilaterally, negative Homans sign and laterally. Exam Initial Vital Signs Temp Pulse Resp BP Pulse Ox 98.3 F 121 15 121/79 98 12/14/17 01:11 12/14/17 01:11 12/14/17 01:11 12/14/17 01:11 12/14/17 01:11 Results - Labs 12/16/17 07:05 12/16/17 05:05 Abnormal lab results WBC 33.3 K/mcL (4.3-11.1) H* 12/14/17 02:49 RBC 2.96 M/mcL (3.82-4.97) L 12/14/17 02:49 Hgb 8.6 g/dL (11.5-15.4) L 12/14/17 02:49 Hct 27.5 % (35.3-44.9) L 12/14/17 02:49 MCHC 31.3 g/dL (31.6-35.5) L 12/14/17 02:49 RDW 15.9 % (11.5-14.5) H 12/14/17 02:49 Plt Count 424 K/mcL (140-400) H 12/14/17 02:49 Neutrophils # 29.5 K/mcL (1.6-8.9) H 12/14/17 02:49 Platelet Estimate Increased (Normal) H 12/14/17 02:49 PT 13.7 Seconds (9.4-12.1) H 12/14/17 02:49 Carbon Dioxide 37 mEq/L (23-29) H 12/14/17 02:49 Est GFR (Non-Af Amer) 50 (> 60) L 12/14/17 02:49 Glucose 141 mg/dL (70-105) H 12/14/17 02:49 Serum Total Protein 5.7 g/dL (6.4-8.9) L 12/14/17 02:49 Albumin 2.5 g/dL (3.5-5.7) L 12/14/17 02:49 Albumin/Globulin Ratio 0.8 (1.1-2.2) L 12/14/17 02:49 Diabetes panel 12/14/17 Range/Units 02:49 Sodium 141 (136-145) mEq/L Potassium 5.1 (3.5-5.1) mEq/L Chloride 100 (98-107) mEq/L Carbon Dioxide 37 H (23-29) mEq/L BUN 20 (8-23) mg/dL Creatinine 1.09 (0.60-1.20) mg/dL Glucose 141 H (70-105) mg/dL Calcium 8.7 (8.6-10.3) mg/dL AST 26 (13-39) Units/L ALT 16 (7-52) Units/L Alkaline Phosphatase 87 (34-104) Units/L Albumin 2.5 L (3.5-5.7) g/dL Calcium panel 12/14/17 Range/Units 02:49 Calcium 8.7 (8.6-10.3) mg/dL Albumin 2.5 L (3.5-5.7) g/dL Pituitary panel 12/14/17 Range/Units 02:49 Sodium 141 (136-145) mEq/L Potassium 5.1 (3.5-5.1) mEq/L Chloride 100 (98-107) mEq/L Carbon Dioxide 37 H (23-29) mEq/L BUN 20 (8-23) mg/dL Creatinine 1.09 (0.60-1.20) mg/dL Glucose 141 H (70-105) mg/dL Calcium 8.7 (8.6-10.3) mg/dL Adrenal panel 12/14/17 Range/Units 02:49 Sodium 141 (136-145) mEq/L Potassium 5.1 (3.5-5.1) mEq/L Chloride 100 (98-107) mEq/L Carbon Dioxide 37 H (23-29) mEq/L BUN 20 (8-23) mg/dL Creatinine 1.09 (0.60-1.20) mg/dL Glucose 141 H (70-105) mg/dL Calcium 8.7 (8.6-10.3) mg/dL Total Bilirubin 0.4 (0.3-1.0) mg/dL AST 26 (13-39) Units/L ALT 16 (7-52) Units/L Alkaline Phosphatase 87 (34-104) Units/L Albumin 2.5 L (3.5-5.7) g/dL All other labs normal.
[2017-12-14 11:16] LABS: Phosphorous 3.4 mg/dL (2.7-4.5)
--- NOTE | 2017-12-14 16:40 | Event Note ---
Date of Encounter: 12/14/17 Time of Encounter: 11:00 Patient was seen earlier this morning by the hospitalist. Presently patient denies any abdominal pain nausea or vomiting. NG is draining dark brown drainage. She was seen by surgery due to small bowel obstruction continue with nothing by mouth status and will continue with NG. We will hold oral medications for now and resume once patient is able to take orally. Did discuss with dietary concerning possible TPN. Possibly she is hemodynamically stable afebrile continue with current antibiotics
[2017-12-14] MEDS: Ondansetron 4 MG/2 ML VIAL IVP PRN (17:34)
--- NOTE | 2017-12-14 19:33 | Electrocardiograph Report ---
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
[2017-12-15] MEDS: 0.9 % Sodium Chloride 1,000 ML IVC SCH ×2 (02:51→21:51)
[2017-12-15] MEDS: *HR* Heparin 5,000 UNIT/ML VIAL SQ SCH ×2 (04:52→13:37)
[2017-12-15] MEDS: D5% in 0.9% NACL 1,000 ML IVC SCH ×3 (04:52→20:36)
[2017-12-15] MEDS: Insulin LISPRO 300 UNITS/3 ML VIAL SQ SCH ×3 (04:53→20:49)
[2017-12-15 05:03] LABS: Basophils # 0.1 K/mcL (0.0-0.2); Basophils % 0.8 %; Eosinophils # 0.1 K/mcL (0.0-0.6); Eosinophils % 1.2 %; Hematocrit 24.8 % (35.3-44.9); Hemoglobin 7.6 g/dL (11.5-15.4); Lymphocytes # 1.4 K/mcL (0.6-4.6); Lymphocytes % 11.7 %; Mean Corpuscular HGB Conc 30.6 g/dL (31.6-35.5); Mean Corpuscular Hemoglobin 29.7 pg (28.0-33.3); Mean Corpuscular Volume 96.9 fL (83.0-100.0); Mean Platelet Volume 10.1 fL (9.4-12.4); Monocytes # 0.6 K/mcL (0.0-1.3); Monocytes % 4.9 %; Neutrophils # 9.3 K/mcL (1.6-8.9); Platelet Count 368 K/mcL (140-400); Red Blood Count 2.56 M/mcL (3.82-4.97); Red Cell Distribution Width 16.1 % (11.5-14.5); Segmented Neutrophils % 80.4 %
[2017-12-15 05:27] LABS: BUN/Creatinine Ratio 15 (6-26); Blood Urea Nitrogen 12 mg/dL (8-23); Calcium 7.8 mg/dL (8.6-10.3); Carbon Dioxide 31 mEq/L (23-29); Chloride 107 mEq/L (98-107); Glucose 59 mg/dL (70-105); Osmolality,Calculated 294 (280-300); Sodium 143 mEq/L (136-145); eGFR For African Americans > 60 (> 60); eGFR For Non-African Americans > 60 (> 60)
[2017-12-15] MEDS: Piperacillin/Tazobactam 3.375 GM in 0.9 % Sodium Chloride Mini Bag 100 ML IVPB SCH ×3 (08:17→23:54)
[2017-12-15] MEDS: Ondansetron 4 MG/2 ML VIAL IVP PRN (08:18)
[2017-12-15] MEDS ORDERED: Lidocaine -MPF 1% 5 ML AMPUL INFILT ONE (11:11)
[2017-12-15] MEDS ORDERED: D10% in Water 500 ML IVC PRN ×2 (11:46→21:05)
--- NOTE | 2017-12-15 13:37 | Internal Med Progress Note ---
Date of Encounter: 12/15/17 Time of Encounter: 13:36 - Assessment and plan (1) Diabetes mellitus, type 2 Current Visit: No Status: Chronic Assessment and plan: sliding scale insulin. 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 Last admission seen by cardiology 12/01/2017 recommending digoxin 125mcg IV - with cardizem 5-10mg IV PRN HR >110 since patient NPO and experiencing afib. 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 NPO. NG tube. Pain control. Anti-emetics. IV fluids. check lactic acid stat. Leukocytosis is likely reactive has improved cont Vanc and zosyn Surgery to take patient for exploratory lap will start on TPN- nutrition consulted - prealbumin 9- anticipate poor oral intake monitor I/O (5) DVT prophylaxis Current Visit: No Status: Acute Assessment and plan: heparin SQ (6) Chronic respiratory failure Current Visit: Yes Status: Acute Assessment and plan: Will treat for HCAP vanc and zosyn- which will cover both resp and GI cont O2- wean bronchodilators Qualifiers: Respiratory failure complication: unspecified whether with hypoxia or hypercapnia Qualified Code(s): J96.10 - Chronic respiratory failure, unspecified whether with hypoxia or hypercapnia (7) Leukocytosis Current Visit: Yes Status: Acute Assessment and plan: Treat both resp and abd etiology - Broad spectrum aTB-suspect rt dehydration as well cdiff neg 12/11 no loose stools blood cultures obtained Qualifiers: Leukocytosis type: bandemia Qualified Code(s): D72.825 - Bandemia - Time Spent With Patient Total time spent is greater than 50% in coordination of care (as documented) at patient's floor/unit and/or counseling patient: - Subjective Interval history: Patient seen and examined at bedside. Continue to have NG, denies any pain or discomfort at this time. No N,V,D no abd pain at this time. Passing Gas - Constitutional Vitals: Temp Pulse Resp BP Pulse Ox 97.8 F 118 16 97/62 91 12/15/17 10:46 12/15/17 10:46 12/15/17 10:46 12/15/17 10:46 12/15/17 10:46 General appearance: Present: A&O X 3 - Head Head exam: Present: atraumatic, normocephalic - Eye Eye exam: Present: PERRL, conjuntiva pink, sclera anicteric Pupils: Present: PERRL - Neck Neck exam general surgery: Present: supple, trachea midline. Absent: lymphadenopathy - Respiratory Respiratory exam: Present: CTAB. Absent: accessory muscle use, rales, rhonchi, wheezes - Cardiovascular Cardiovascular exam: Present: RRR, +S1, +S2. Absent: diastolic murmur, gallop, rubs, systolic murmur - GI/Abdominal GI/Abdominal exam: Present: normal bowel sounds, soft, no peritoneal signs. Absent: distended, tenderness - Extremities Exam Extremities exam: Present: warm, radial pulses palpable and symmetrical. Absent : calf tenderness, cyanotic, pedal edema - Neurological Exam Neurological exam: Present: CN II-XII intact, oriented X3, no focal deficits. Absent: pronater drift, facial droop, speech deficit - Skin Skin exam: Present: dry, intact Internal Medicine: Result - Labs CBC & Chem 7: 12/15/17 03:50 12/15/17 03:50 Labs: Short CBC 12/15/17 Range/Units 03:50 WBC 11.5 H D (4.3-11.1) K/mcL Hgb 7.6 L (11.5-15.4) g/dL Hct 24.8 L (35.3-44.9) % Plt Count 368 (140-400) K/mcL Neutrophils # 9.3 H (1.6-8.9) K/mcL BMP 12/15/17 03:50 Sodium 143 Potassium 4.0 Chloride 107 Carbon Dioxide 31 H BUN 12 Creatinine 0.79 Glucose 59 L Calcium 7.8 L - ABG Interpretation ABG results: PT/INR, D-dimer PT 13.7 Seconds (9.4-12.1) H 12/14/17 02:49 - Impressions Impressions Chest/Abdomen X-ray 12/14/17 17:05 IMPRESSION: Stable appearance to the chest with patchy airspace opacities along with diffuse interstitial prominence, left somewhat more than right, concerning for multifocal infiltrates. Continued distended air-filled loops of small bowel to the abdomen concerning for small bowel obstruction. Continued follow-up recommended. Interval placement of enteric tube. Tip is present in the proximal body of the stomach. Side port is in the distal esophagus. Advancement by 5-10 cm recommended. D/ / 12/14/2017 18:39:06 Florentino Fay MD / thiago Interpreting Provider: Florentino Fay MD Consult Discharge Plan - Plan Referrals: Sloane Murphy DO [Primary Care Provider] - Edmund Ritchie [Partnered Physician] - 12/31/17 3:30 pm
--- NOTE | 2017-12-15 14:30 | Anesthesia Evaluation PreOp ---
Date of Encounter: 12/15/17 Time of Encounter: 14:27 - Past History Planned Operation: Exploratory Celiotomy re: small bowel obstruction Cardiac History: [place] (x2), CHF, HTN, Hyperlipidemia, Arrhythmia (rate controlled on Cardizem,), Pacemaker/ICD (Medtronic ICD placed 06/2016 - interrogation reveals last intervention/shock was 12/05/2017. 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: Other (Anxiety/Depression) Other Medical History: Diabetes Type II Anesthesia History: No Prior Anesthetic Complications, Past Anesthesia (Hyster, Pacer/AICD, B-TKR, B-achilles repair), Problems (PONV& "difficult to wake up") Alcohol Use: none Drug use: none Medications and Allergies RX: Aspirin 81 mg PO DAILY 06/05/16 [History] RX: Multivitamin [Multivitamins] 1 cap PO DAILY 06/05/16 [History] RX: Calcium Carbonate [Calcium] 1,000 mg PO BID 04/28/17 [History] RX: Ferrous Sulfate 325 mg PO DAILY 04/28/17 [History] RX: Alosetron HCl 0.5 mg PO BID 08/19/17 [History] RX: Baclofen [Lioresal] 10 mg PO TID PRN 08/19/17 [History] RX: Cholecalciferol (D-3) [Vitamin D] 2,000 unit PO DAILY #30 tablet 08/25/17 [ Rx] RX: Albuterol Sulfate [Ventolin Hfa] 2 puff IH Q6H PRN 09/11/17 [History] RX: Beclomethasone Diprop 80mcg [QVAR 80 mcg] 1 puff IH BID 09/11/17 [History] RX: BuPROPion XL (24 HR) [Wellbutrin Xl] 150 mg PO DAILY 09/11/17 [History] RX: Colestipol HCl [Colestid] 2 gm PO DAILY 10/29/17 [History] RX: Cyanocobalamin (Vitamin B-12) [Vitamin B12] 1,000 mcg PO DAILY 10/29/17 [ History] RX: Hyoscyamine SL [Levsin Sl] 0.125 mg SL Q4H PRN 10/29/17 [History] RX: Meclizine [Antivert] 25 mg PO DAILY PRN 10/29/17 [History] RX: Oxygen 2 l .ROUTE AD 10/29/17 [History] RX: Albuterol Neb [Proventil Neb] 2.5 mg IH Q2H PRN inhsol 11/07/17 [Rx] RX: Nitroglycerin 0.4 mg SL Q5MIN PRN tab.subl 11/07/17 [Rx] RX: Lipase/Protease/Amylase [Micky Ramos 6,000 Units Capsule] 2 each PO ACHS #240 capsule.dr 11/17/17 [Rx] RX: Diltiazem CD (24hr) [Cardizem CD] 120 mg PO DAILY 11/27/17 [History] RX: Magnesium Oxide [Mag-Ox] 400 mg PO TID 11/27/17 [History] RX: Amoxicillin/Clavulanate [Augmentin] 875 mg PO BIDWM #8 tablet 12/11/17 [Rx] RX: Doxycycline 100 mg PO 0800,1900 #8 capsule 12/11/17 [Rx] RX: Furosemide [Lasix] 20 mg PO DAILY 5 Days tablet 12/11/17 [Rx] RX: GuaiFENesin Liq [Robitussin Liq] 200 mg PO Q6HR PRN udc 12/11/17 [Rx] RX: Ipratropium/Albuterol Neb [Duoneb] 3 ml IH [id number] PRN inhsol 12/11/17 [Rx] RX: Lactobacillus [Culturelle] 1 each PO BID cap.sprink 12/11/17 [Rx] RX: Phos-NaK [Neutra-Phos] 1 each PO BID powd.pack 12/11/17 [Rx] 3 Allergy/AdvReac Type Severity Reaction Status Date / Time peanut Allergy Hives Verified 11/26/17 10:44 zinc Allergy Hives Verified 11/26/17 10:44 Sulfa (Sulfonamide AdvReac Mild constipatio Verified 11/26/17 10:44 Antibiotics) n - Meds/Allergy Pre-op Review Medications Reviewed: Yes Allergies Reviewed: Yes Beta Blockers on Current Med List: No Anesthesia Results - Labs 12/15/17 03:50 12/15/17 03:50 Laboratory Tests 03/25/17 08/14/17 11/08/17 10:42 10:12 05:50 PT INR APTT 25.0 L Glucose Est Mean Plasma Glucose 100 Hemoglobin A1c 5.1 Calcium Ionized Calcium 1.26 Phosphorus Magnesium 12/14/17 12/14/17 12/15/17 02:49 02:49 03:50 PT 13.7 H INR 1.3 APTT Glucose 59 L Est Mean Plasma Glucose Hemoglobin A1c Calcium 7.8 L Ionized Calcium Phosphorus 3.4 Magnesium 1.6 Laboratory Results Impressions Chest/Abdomen X-ray 12/14/17 17:05 IMPRESSION: Stable appearance to the chest with patchy airspace opacities along with diffuse interstitial prominence, left somewhat more than right, concerning for multifocal infiltrates. Continued distended air-filled loops of small bowel to the abdomen concerning for small bowel obstruction. Continued follow-up recommended. Interval placement of enteric tube. Tip is present in the proximal body of the stomach. Side port is in the distal esophagus. Advancement by 5-10 cm recommended. D/ / 12/14/2017 18:39:06 Florentino Fay MD / thiago Interpreting Provider: Florentino Fay MD - Imaging EKG: image reviewed (100bpm) Chest x-ray: report reviewed Additional studies: ECHO 10/29/2017 EV/EV echocardiogram Impressions: LVEF 60%. Mild concentric left ventricular hypertrophy. Moderate left ventricular diastolic dysfunction. Mildly dilated right ventricle. Mildly dilated left atrium. Moderate pulmonary hypertension. A device lead was visualized in the right atrium and right ventricle. Left Ventricular Wall Motion: Rest Echo Findings All wall segments showed normal motion. Anesthesia Exam Vital Signs Temp Pulse Resp BP Pulse Ox 12/15/17 10:46 97.8 F 118 16 97/62 91 12/15/17 08:15 96 12/15/17 06:24 97.4 F L 102 16 97/64 96 12/15/17 03:05 97.9 F 115 16 102/67 99 12/14/17 22:47 98.2 F 115 12 109/76 99 12/14/17 19:09 98.0 F 108 18 115/73 98 12/14/17 14:50 98 F 114 14 115/77 97 Intake and Output 12/14/17 12/15/17 12/15/17 23:59 07:59 15:59 Intake Total 100 / 100 1100 / 1100 Balance 100 / 100 1100 / 1100 Intake: IV Fluids 100 / 100 1100 / 1100 0.9 % Sodium Chloride 1,000 ML 1000 / 1000 @ 100 mls/hr IVC .Q10H [facility] Rx#: [id number] Zosyn 3.375 GM In 0.9 % Sodium 100 / 100 100 / 100 Chloride (Mini-Bag +) 100 ML @ 25 mls/hr IVPB Q8HR [facility] Rx#: [id number] Other: Meal NPO # Voids 1 1 # Urine Diapers 1 1 Blood Glucose* 65 78 78 Height: 5'6" Weight: 132# - HEENT Pupil (Motor): EOMI Mallampati: II Teeth: Normal Denture Type: Upper: Partial, Lower: Partial Oral Opening: Greater than 3 - TRICOT KNITTER LOC: Oriented, Confused TRICOT KNITTER Motor: Normal RUE, Normal LUE, Normal RLE, Normal LLE, Normal Face TRICOT KNITTER Sensory: Normal: RUE, LUE, RLE, LLE, Face - Cardiac Murmur: None - Pulmonary Breath Sounds: bilateral Rhonchi (R>>L ) Respiratory Effort: Symmetrical Anesthesia Assess/Plan ASA Score: 3, 4 Modified Mirella Scale for Level of Consciousness: Cooperative, oriented, and tranquil Anesthetic Plan: General Monitoring Plan: Standard Monitors Recovery Plan: PACU Anes Supervising Prov Stmt: Pt seen/evaluated, r&B Discussed, questions answered and consent obtained. Wayne Piña MD
[2017-12-15] MEDS ORDERED: CefOXitin 1,000 MG VIAL ONE ×2 (15:06→17:03)
[2017-12-15] MEDS ORDERED: *HR* Propofol 200 MG/20 ML VIAL IVP ONE (15:14)
[2017-12-15] MEDS ORDERED: *HR* FentaNYL (PF) 100 MCG/2 ML VIAL ONE (15:14)
[2017-12-15] MEDS ORDERED: Lidocaine -MPF 2% 2 ML VIAL ONE (15:16)
[2017-12-15] MEDS ORDERED: *HR* Rocuronium Bromide 50 MG/5 ML VIAL ONE (15:16)
[2017-12-15] MEDS ORDERED: Ipratropium/Albuterol Neb 3 ML ONE (15:16)
[2017-12-15] MEDS ORDERED: *HR* PHENYLEPHRINE 1,000 MCG/10 ML SYRINGE IVP ONE (16:11)
[2017-12-15] MEDS ORDERED: *HR* Promethazine 25 MG/ML VIAL IVP PRN (16:25)
[2017-12-15] MEDS ORDERED: Clinimix E 5%-15% SOLUTION 2,000 ML with MVI, adult with vitamin K 10 ML IVC SCH ×2 (17:00→21:05)
--- NOTE | 2017-12-15 17:26 | Operative Note ---
Date of procedure: 12/15/17 Pre-op diagnosis: Partial small bowel obstruction Post-op diagnosis: other (Pseduo-obstruction) Procedure: Exploratory celiotomy with lysis of adhesion Anesthesia: JOANN Surgeon: Nadeem Chauhan Was there an hospital clinic assistant present: Yes Armed Security Professional: Sheila Morel Estimated blood loss (cc): 10 Specimen: none Condition: stable Disposition: PACU Procedure in Detail: Date of surgery: 12/15/17 After properly identifying the patient, the patient was brought to the operating room and placed in the supine position. After proper IV sedation was achieved followed by general endotracheal intubation the patient's abdomen was examined. She had inferior midline incision partially open with packing and patel still present. The packing was removed and the patel were subsequently removed. The abdomen was prepped and draped in normal sterile fashion in a timeout was performed noting the patient's name and type of procedure to be performed. A 10 blade scalpel was used to make an incision from just below the xiphoid process extending inferiorly down to the level of the infraumbilical incision. Bovie cauterization was used to dissected the subcutaneous tissue until the abdominal rectus fascia was encountered above the level of the umbilicus. The fascia and opened along the length of the skin incisional Bovie cauterization. Visualization demonstrated that there was an adhesion (omental adhesion) to the abdominal wall fascia at the level of the from the local midline incision. A handheld LigaSure was then used to transect this adhesion to allow for full opening of the abdominal wall fascia. The small bowel was examined and noted to be dilated. The small bowel was run from the level of the ligament of Treitz which appeared to be right sided as opposed left-sided, all the way down to its insertion into the cecum. There was a very small adhesion along the right lateral sidewall of the small bowel but no true "kink". This adhesion was released Bovie cauterization. Of note; in this vicinity the small bowel appeared to be normal caliber but there was no evidence of a neck mass, stenosis, or small bowel to small bowel adhesion to the level of the small bowel evaluation. The right colon, transverse colon, and descending colon were also examined and evaluated and or of normal diameter. There were some diverticula noted in the transverse colon and in the descending colon but no signs of perforation or colitis/diverticulitis. No intra-abdominal masses noted. Small bowel was once again run and there was no evidence of an abnormality along the mesentery. The abdomen was copiously irrigated with normal saline solution containing Mefoxin and the decision was made to go ahead and complete this surgical procedure by placing Seprafilm within the abdomen and then closing the abdominal wall fascia in a running fashion with looped #1 PDS sutures 2. The deep subcutaneous tissue was reapproximated with interrupted 2-0 Vicryl sutures and the long midline incision was left open with packing (combination 1 inch plain new gauze and Kerlix). Needle, sponge, and instrument counts were correct 2 and the incision was covered with 4 x 4 gauze. The patient was aroused from IV sedation , extubated in the operating room without complication, and transported to the recovery room in stable condition.
[2017-12-15] MEDS: *HR* Morphine 2 MG/ML SYRINGE IVP PRN ×5 (17:40→18:20)
[2017-12-15] MEDS ORDERED: Furosemide 20 MG/2 ML VIAL IVP ONE ×2 (17:56→18:02)
[2017-12-15] MEDS: *HR* HYDROmorphone (PF) 1 MG/ML SYRINGE IVP PRN ×3 (18:39→19:03)
[2017-12-15] MEDS ORDERED: *HR* HYDROmorphone (PF) 1 MG/ML SYRINGE ONE (18:39)
--- NOTE | 2017-12-15 19:25 | Anesthesia Evaluation Post Op ---
Date of Encounter: 12/15/17 Time of Encounter: 19:22 - Vital Signs Vital Signs: Vital Signs/O2 Sat/Glucose, Most Current Temp Pulse Resp BP Pulse Ox 12/15/17 19:20 111 16 95 12/15/17 19:10 109 20 122/80 93 12/15/17 19:00 98.3 F 113 20 124/84 94 12/15/17 18:50 113 22 127/81 94 12/15/17 18:40 113 22 127/82 94 12/15/17 18:30 98.3 F 112 22 120/84 96 12/15/17 18:20 112 22 121/79 96 12/15/17 18:10 112 24 124/81 99 12/15/17 18:00 98.3 F 112 28 123/84 99 12/15/17 17:50 112 28 123/80 100 12/15/17 17:40 112 28 124/82 100 12/15/17 17:30 99.2 F 113 28 120/76 96 - Lungs Lungs: Clear Ascult./Percussion - Airway Airway: Non-obstructed - Cardiovascular Regular Rate, Baseline Rhythm - Mental Status Mental Status: Alert & Oriented, Answers Appropriately - Pain Pain Scale: 6 Pain Scale used: Numeric (1 - 10) - Nausea Vomiting Nausea Vomiting: Not Present - Hydration Hydration: NPO, Peck catheter - Discharge PostOp Status: Transfer Patient to floor Anes Supervising Prov Stmt: Pt seen/evaluated, VSS and pt has met criteria for discharge floor. - MD Ayana
[2017-12-15] MEDS ORDERED: D5% in Water 1,000 ML IVC PRN (21:05)
[2017-12-15] MEDS ORDERED: Naloxone 0.4 MG/ML INJ IVP PRN (21:05)
[2017-12-15] MEDS ORDERED: D5% in 0.9% NACL 1,000 ML IVC SCH (21:05)
[2017-12-15] MEDS ORDERED: Dextrose Gel 15 GM/37.5 ML TUBE PO PRN ×2 (21:05)
[2017-12-15] MEDS ORDERED: *HR* Dextrose 50 % in Water (Syg) 50 ML SYRINGE IVP PRN (21:05)
[2017-12-15] MEDS: *HR* FentaNYL (PF) 100 MCG/2 ML VIAL IVP PRN (23:50)
[2017-12-16] MEDS: Insulin LISPRO 300 UNITS/3 ML VIAL SQ SCH ×5 (01:05→21:46)
[2017-12-16] MEDS: *HR* FentaNYL (PF) 100 MCG/2 ML VIAL IVP PRN ×4 (02:56→10:24)
[2017-12-16 05:25] LABS: VBG Ionized Calcium 1.09 mmol/L (1.15-1.35)
[2017-12-16 05:42] LABS: BUN/Creatinine Ratio 15 (6-26); Blood Urea Nitrogen 15 mg/dL (8-23); Calcium 7.7 mg/dL (8.6-10.3); Carbon Dioxide 31 mEq/L (23-29); Chloride 107 mEq/L (98-107); Glucose 216 mg/dL (70-105); Magnesium 1.3 mg/dL (1.6-2.6); Osmolality,Calculated 301 (280-300); Phosphorous 4.6 mg/dL (2.7-4.5); Sodium 142 mEq/L (136-145); eGFR For African Americans > 60 (> 60); eGFR For Non-African Americans 56 (> 60)
[2017-12-16] MEDS: *HR* Heparin 5,000 UNIT/ML VIAL SQ SCH ×3 (05:56→21:39)
[2017-12-16 07:19] LABS: Hematocrit 28.9 % (35.3-44.9); Mean Corpuscular HGB Conc 31.8 g/dL (31.6-35.5); Mean Corpuscular Hemoglobin 29.6 pg (28.0-33.3); Mean Corpuscular Volume 92.9 fL (83.0-100.0); Mean Platelet Volume 9.8 fL (9.4-12.4); Platelet Count 458 K/mcL (140-400); Red Blood Count 3.11 M/mcL (3.82-4.97); Red Cell Distribution Width 16.4 % (11.5-14.5)
[2017-12-16 07:24] LABS: Hemoglobin 9.2 g/dL (11.5-15.4)
[2017-12-16] MEDS ORDERED: *HR* Metoprolol 5 MG/5 ML VIAL IVP PRN (07:39)
[2017-12-16] MEDS ORDERED: Calcium Gluconate 2,000 MG in D5% in Water 100 ML IVPB ONE (07:41)
--- NOTE | 2017-12-16 08:09 | Internal Med Progress Note ---
Date of Encounter: 12/16/17 Time of Encounter: 07:47 - Assessment and plan (1) PAF (paroxysmal atrial fibrillation) Current Visit: No Status: Chronic Assessment and plan: 1 EKG paced rhythm- rate 90 -100 discussed with both pharmacy and cardiology concerning rate control. Last admission seen by cardiology 12/01/2017 recommending digoxin 125mcg IV - with cardizem 5-10mg IV PRN HR >110 since patient NPO and experiencing afib. - Discussed with Molly Richards cardiology [employer]IST and [facility] pharmacist- will cont digoxin for rate control since patient NPO 12/16: Patient HR running 110-120s today. She has significant history with atrial fibrillation. Previous admission patient had same issue and she was started on digoxin IV with IV lopressor as a prn. This was effective in controlling heart rate without excessive blood pressure drop. For now we will restart IV digoxin with IV Lopressor as prn. Cardiology was consulted during previous admission and was consulted yesterday, will follow recommendations. (2) Diabetes mellitus, type 2 Current Visit: No Status: Chronic Assessment and plan: sliding scale insulin. Accuchecks q 4h SSI Acceptable glucose <180. Qualifiers: Diabetes mellitus long term acute care registered nurse insulin use: without fpc use Diabetes mellitus complication status: without complication Qualified Code(s): E11.9 - Type 2 diabetes mellitus without complications (3) HTN (hypertension) Current Visit: No Status: Chronic Assessment and plan: Currently BP runs in lower-normal limits. Hold antihypertensives for now. Qualifiers: Hypertension type: essential hypertension Qualified Code(s): I10 - Essential (primary) hypertension (4) Small bowel obstruction Current Visit: No Status: Acute Assessment and plan: POD #1 s/p exploratory celiotomy with lysis of adhesions Patient doing well this morning Management per Surgery. (5) Chronic respiratory failure Current Visit: Yes Status: Acute Assessment and plan: Will treat for HCAP vanc and zosyn- which will cover both resp and GI bronchodilators She is back to home O2 levels 2-3L supplemental O2 via [place] Qualifiers: Respiratory failure complication: unspecified whether with hypoxia or hypercapnia Qualified Code(s): J96.10 - Chronic respiratory failure, unspecified whether with hypoxia or hypercapnia (6) Leukocytosis Current Visit: Yes Status: Acute Assessment and plan: Treat both resp and abd etiology 12/15 WBCs improved, today incerased again and most likely reactive. Patient afebrile. Likely reactive, will monitor Qualifiers: Leukocytosis type: bandemia Qualified Code(s): D72.825 - Bandemia (7) Coronary artery disease Current Visit: Yes Status: Acute Assessment and plan: On aspirin for home medication, will resume when able. Qualifiers: Coronary Disease-Associated Artery/Lesion type: unspecified vessel or lesion type [place] vs. transplanted heart: [place] heart Associated angina: angina presence unspecified Qualified Code(s): I25.10 - Atherosclerotic heart disease of [place] coronary artery without angina pectoris (8) (HFpEF) heart failure with preserved ejection fraction Current Visit: No Status: Chronic Assessment and plan: No acute exacerbation, currently appears euvolemic (9) DVT prophylaxis Current Visit: No Status: Acute Assessment and plan: heparin SQ - Time Spent With Patient Total time spent is greater than 50% in coordination of care (as documented) at patient's floor/unit and/or counseling patient: - Constitutional Vitals: Temp Pulse Resp BP Pulse Ox 98.4 F 118 18 130/86 96 12/16/17 06:34 12/16/17 06:34 12/16/17 06:34 12/16/17 06:34 12/16/17 06:34 General appearance: Present: A&O X 3 Internal Medicine: Result - Labs CBC & Chem 7: 12/16/17 07:05 12/16/17 05:05 Labs: Short CBC 12/16/17 Range/Units 07:05 WBC 23.7 H D (4.3-11.1) K/mcL Hgb 9.2 L D (11.5-15.4) g/dL Hct 28.9 L (35.3-44.9) % Plt Count 458 H (140-400) K/mcL BMP 12/16/17 05:05 Sodium 142 Potassium 4.0 Chloride 107 Carbon Dioxide 31 H BUN 15 Creatinine 0.99 Glucose 216 H Calcium 7.7 L - ABG Interpretation ABG results: PT/INR, D-dimer PT 13.7 Seconds (9.4-12.1) H 12/14/17 02:49 - VTE Documentation of Mechanical Device: Intermittent pneumatic compression device Consult Discharge Plan - Plan Referrals: Sloane Murphy DO [Primary Care Provider] - Edmund Ritchie [Partnered Physician] - 12/31/17 3:30 pm
[2017-12-16 08:43] LABS: Neutrophils # 22.8 K/mcL (1.6-8.9); Toxic Granulation Present (Not Present)
[2017-12-16] MEDS: *HR* Digoxin 0.5 MG/2 ML AMPUL IVP SCH (08:47)
[2017-12-16] MEDS: Piperacillin/Tazobactam 3.375 GM in 0.9 % Sodium Chloride Mini Bag 100 ML IVPB SCH ×2 (08:48→15:56)
[2017-12-16] MEDS ORDERED: Aminoglycoside Consult 1 EACH MC ONE (09:10)
--- NOTE | 2017-12-16 10:15 | Cardiology Consult Note ---
Date of Encounter: 12/16/17 Time of Encounter: 09:30 Assessment and Plan (1) Small bowel obstruction Current Visit: No Status: Acute Per cardiology: -Recent small bowel obstruction. -Currently NPO with NG tube to suction. -Requiring TPN. -Management per primary and surgery services. (2) Atrial fibrillation/flutter Current Visit: Yes Status: Acute Per cardiology: -Admitted with small bowel obstruction. Currently NPO with NG tube. -Hx of atrial flutter ablation. -Currently a.fib/flutter RVR, average HR 118. 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 -She continues to be on aspirin for stroke risk reduction in outpatient setting. Patient is aware of increased risk of CVA/emolic event while not on full anticoagulation. Not currently receiving. -TTE 10/2017 EF 60%, mild concentric LVH, moderate diastolic dysfunction, mildly dilated RV, mildly dilated LA, moderate pulmonary hypertension, no segmental wall motion abnormalities. -Had been on cardizem CD 120mg in outpatient setting, now unable to take oral medications. Currently receiving digoxin 0.125mg IV daily and PRN metoprolol. -BP currently 110-130s systolic. -Will start lopressor 2.5mg Q6 hours scheduled. -Will continue to monitor. (3) History of ventricular tachycardia Current Visit: No Status: Acute Per cardiology: -History of VT, has ICD. -Previously on amiodarone, stopped during last hospital admission due to worsening respiratory status. -Follows with Dr.John Kearns, is supposed to have repeat PFT in outpatient setting. -Denies ICD shocks. -[facility] 05/2016 with angiographically normal coronaries. Discussion w patient/family: The assessment and plan as outlined above was discussed with the patient who expressed understanding and agreement. All questions were answered. Thank you for involving us in the care of your patient. Please call with any questions. Discussed and reviewed with . History of Present Illness Consult date: 12/16/17 Requesting physician: Jacob Garcia Consult reason: a.fib RVR Chief complaint: Nausea, vomiting, abdominal pain History of present illness: Ms. Hebert is a 67 year old female with a relevant past medical history of HTN, anemia, HLD, DM, IBS, ventricular tachycardia/v.fibrillaton s/p ICD, a.fib/flutter s/p a.flutter ablation not on anticoagulation due to signficant avelolar hemmorhage, COPD, CKD, recent small bowel obstruction who presented to [facility] with complaints of nausea, vomiting, and abdominal pain. Patient was taken back to OR yesterday. Cardiology has been consulted for a.fib RVR. Currently patient is NPO with BG tube to suction and is unable to take oral medications. Patient denies chest pain. Reports breathing is about her baseline. Patient reports feeling her heart racing. Patient also states is currently having a lot of abdominal pain. Past Med Surg Social Fam HX - Past Medical History Attestation: Yes The following information was validated with the patient. Source: patient, old records reviewed Medical history: atrial fibrillation, CHF, COPD, coronary artery disease, diabetes, hyperlipidemia, hypertension, myocardial infarction, other Psychiatric history: no psych history - Past Surgical History Surgical History: hysterectomy, orthopedic, other, pacemaker/AICD, other - Social History Smoking Status: Never smoker Smokeless Tobacco Status: No Alcohol use: none Drug use: none - Family History Father Living Status: Hx Family Cardiac Disorders: No Hx Family Respiratory Disorders: Yes (copd) Hx Family Cancer: No Hx Family GI Disorders: No Hx Family Genitourinary Disorders: No Hx Family Endocrine Disorder: No Hx Family Musculoskeletal Disorders: No Hx Family Neuromuscular Disorders: No Hx Family Neurologic Disorders: No Hx Family HEENT Disorders: No Hx Family Autoimmune Disorders: No Hx Family Reproductive Disorders: No Hx Family Psychosocial Disorders: No Hx Family Medical Disorders: No Mother Living Status: Hx Family Cardiac Disorders: Yes Hx Family Endocrine Disorder: Yes Medications and Allergies Aspirin 81 mg PO DAILY 06/05/16 [History] Multivitamin [Multivitamins] 1 cap PO DAILY 06/05/16 [History] Calcium Carbonate [Calcium] 1,000 mg PO BID 04/28/17 [History] Ferrous Sulfate 325 mg PO DAILY 04/28/17 [History] Alosetron HCl 0.5 mg PO BID 08/19/17 [History] Baclofen [Lioresal] 10 mg PO TID PRN 08/19/17 [History] Cholecalciferol (D-3) [Vitamin D] 2,000 unit PO DAILY #30 tablet 08/25/17 [Rx] Albuterol Sulfate [Ventolin Hfa] 2 puff IH Q6H PRN 09/11/17 [History] Beclomethasone Diprop 80mcg [QVAR 80 mcg] 1 puff IH BID 09/11/17 [History] BuPROPion XL (24 HR) [Wellbutrin Xl] 150 mg PO DAILY 09/11/17 [History] Colestipol HCl [Colestid] 2 gm PO DAILY 10/29/17 [History] Cyanocobalamin (Vitamin B-12) [Vitamin B12] 1,000 mcg PO DAILY 10/29/17 [History ] Hyoscyamine SL [Levsin Sl] 0.125 mg SL Q4H PRN 10/29/17 [History] Meclizine [Antivert] 25 mg PO DAILY PRN 10/29/17 [History] Oxygen 2 l .ROUTE AD 10/29/17 [History] Albuterol Neb [Proventil Neb] 2.5 mg IH Q2H PRN inhsol 11/07/17 [Rx] Nitroglycerin 0.4 mg SL Q5MIN PRN tab.subl 11/07/17 [Rx] Lipase/Protease/Amylase [Micky Ramos 6,000 Units Capsule] 2 each PO ACHS #240 capsule. 11/17/17 [Rx] Diltiazem CD (24hr) [Cardizem CD] 120 mg PO DAILY 11/27/17 [History] Magnesium Oxide [Mag-Ox] 400 mg PO TID 11/27/17 [History] Amoxicillin/Clavulanate [Augmentin] 875 mg PO BIDWM #8 tablet 12/11/17 [Rx] Doxycycline 100 mg PO 0800,1900 #8 capsule 12/11/17 [Rx] Furosemide [Lasix] 20 mg PO DAILY 5 Days tablet 12/11/17 [Rx] GuaiFENesin Liq [Robitussin Liq] 200 mg PO Q6HR PRN udc 12/11/17 [Rx] Ipratropium/Albuterol Neb [Duoneb] 3 ml IH [id number] PRN inhsol 12/11/17 [Rx] Lactobacillus [Culturelle] 1 each PO BID cap.sprink 12/11/17 [Rx] Phos-NaK [Neutra-Phos] 1 each PO BID powd.pack 12/11/17 [Rx] 3 Allergy/AdvReac Type Severity Reaction Status Date / Time peanut Allergy Hives Verified 11/26/17 10:44 zinc Allergy Hives Verified 11/26/17 10:44 Sulfa (Sulfonamide AdvReac Mild constipatio Verified 11/26/17 10:44 Antibiotics) n All Systems Review: The remainder of the systems were reviewed and are negative - Cardiovascular Cardiovascular: as per HPI, rapid heart rate - Gastrointestinal Gastrointestinal: abdominal pain, nausea Physical Examination Vital Signs, Last 4 Hours Temp Pulse Resp BP Pulse Ox 12/16/17 06:34 98.4 F 118 18 130/86 96 General: Conversant, No Apparent Distress HEENT: Atraumatic, Normocephaly, Mucus Membranes Moist Neck: No JVD, Normal carotid pulses Cardiac: Normal S1 and S2, No Murmur, Other (Irregularly irregular ) Lungs: Other (Patient refused respiratory assessment due to severe pain. ) Neuro: Alert and responsive, No focal deficits noted Abdomen: Other (Tender, NG tube noted to suction. ) Skin: No rashes noted on visualized skin Musculoskeletal: No Chest Wall Tenderness Extremities: No Clubbing, No Cyanosis, No Edema, Normal Pulses Results 12/16/17 07:05 12/16/17 05:05 Lab Results Active Medications Dextrose/Water (Dextrose 50% (Syg)) 25 ml IVP AD PRN PRN Reason: Hypoglycemia Stop: 06/15/18 02:02 Digoxin (Lanoxin) 0.125 mg IVP DAILY [facility] Stop: 06/17/18 09:01 Last Admin: 12/16/17 08:47 Dose: 0.125 mg Fentanyl Citrate (Fentanyl (Pf)) 25 mcg IVP Q1H PRN PRN Reason: Severe Pain Stop: 06/15/18 02:03 Last Admin: 12/16/17 08:47 Dose: 25 mcg Glucagon (Glucagen) 1 mg IM ONCE PRN PRN Reason: Hypoglycemia Stop: 06/15/18 02:02 Glucose (Gluctose) 15 gm PO ONCE PRN PRN Reason: Hypoglycemia Stop: 06/15/18 02:02 Glucose (Gluctose) 30 gm PO ONCE PRN PRN Reason: Hypoglycemia Stop: 06/15/18 02:02 Heparin Sodium (Porcine) (Heparin) 5,000 unit SQ Q8HCO [facility] Stop: 06/17/18 06:01 Last Admin: 12/16/17 05:56 Dose: 5,000 unit Sodium Chloride (0.9 % Sodium Chloride) 1,000 mls @ 100 mls/hr IVC .Q10H [facility] Stop: 06/15/18 02:01 Last Admin: 12/15/17 21:51 Dose: 100 mls/hr Dextrose (Dextrose 10% Water 500 Ml Ivbag) 500 mls @ 50 mls/hr IVC .Q10H PRN PRN Reason: TPN delayed or interrupted Stop: 06/16/18 11:47 Dextrose/Sodium Chloride (D5% And 0.9% Nacl 1000 Ml) 1,000 mls @ 100 mls/hr IVC .Q10H [facility] Stop: 06/16/18 04:31 Last Admin: 12/15/17 21:45 Dose: Not Given Dextrose (Dextrose 5%) 1,000 mls @ 100 mls/hr IVC .Q10H PRN PRN Reason: HYPOGLYCEMIA Stop: 06/15/18 02:02 Piperacillin Sod/Tazobactam (Sod 3.375 gm/ Sodium Chloride) 100 mls @ 25 mls/ hr IVPB Q8HR [facility] Stop: 06/15/18 08:01 Last Admin: 12/16/17 08:48 Dose: 25 mls/hr Multivitamins 10 ml/ Amino (Acids/Electrolytes) 2,010 mls @ 40 mls/hr IVC .Q24H [facility] PRN Reason: Protocol Stop: 12/16/17 16:59 Last Admin: 12/15/17 21:36 Dose: Not Given Vancomycin HCl 1,000 mg/ (Sodium Chloride) 250 mls @ 166.667 mls/hr IVPB Q24H [facility] Stop: 06/15/18 03:01 Last Infusion: 12/16/17 05:04 Dose: Infused Insulin Human Lispro (Humalog) 0 units SQ Q6HR [facility] PRN Reason: Protocol Stop: 06/15/18 06:01 Last Admin: 12/16/17 06:36 Dose: 4 units Metoprolol Tartrate (Lopressor) 5 mg IVP Q6HR PRN PRN Reason: SEE COMMENTS Stop: 06/17/18 07:40 Naloxone HCl (Narcan) 0.4 mg IVP Q2MIN PRN PRN Reason: SEE COMMENTS Stop: 06/15/18 02:02 Ondansetron HCl (Zofran) 4 mg IVP Q6HR PRN; Protocol PRN Reason: Nausea And Vomiting Stop: 06/15/18 02:00 Promethazine HCl (Phenergan) 12.5 mg IVP Q4HR PRN PRN Reason: Nausea And Vomiting Stop: 06/15/18 02:01 Laboratory Tests 12/16/17 12/16/17 05:05 07:05 WBC 23.7 H D Hgb 9.2 L D Potassium 4.0 Creatinine 0.99 Magnesium 1.3 L - Imaging and Cardiology Chest Xray: report reviewed Echo: report reviewed Cardiac cath: report reviewed - EKG Interpretation EKG results cardiology: personally reviewed (ECG with marium, HR 100.), other (Telemetry reviewed with average HR previous 12 hours noted to be 118, a.fib/flutter.) Consult Discharge Plan - Plan Referrals: Sloane Murphy DO [Primary Care Provider] - Edmund Ritchie [Partnered Physician] - 12/31/17 3:30 pm
--- NOTE | 2017-12-16 10:58 | General Surgery Progress Note ---
<Cristobal Morris - Last Filed: 12/16/17 12:06> Date of Encounter: 12/16/17 Time of Encounter: 08:15 - Assessment and Plan (1) Small bowel obstruction Current Visit: No Status: Acute POD#1 Exploratory celiotomy with lysis of adhesion. There was a very small adhesion along the right lateral sidewall of the small bowel but no true "kink". The adhesions were removed. The small bowel appeared to be normal caliber but there was no evidence of a neck mass, stenosis, or small bowel to small bowel adhesion to the level of the small bowel evaluation. No signs of colonic perforation, colitis, or diverticulitis. No intra-abdominal mass noted. - Continue NPO. - Continue NGT. - Added scheduled toradol 15 mg q6hr and Ofirmev 1000 ng IV q6h for pain. - Await for bowel function to return. - We will continue to observe. (2) Leukocytosis Current Visit: Yes Status: Acute WBC of 23.7 (yesterday at 11.5, 33.3 on admission). Most likely reactive. Patient afebrile overnight. Qualifiers: Leukocytosis type: bandemia Qualified Code(s): D72.825 - Bandemia Subjective Narrative: Patient says that she has been having abdominal spams since the surgery yesterday. She rates that pain as a 6/10. She denies any overnight fever or chiills. Denies any nausea or vomiting. Denies any chest pain. Admits to mild shortness of breath. Admits to some chest congestion and mild cough. Denies having a BM, but admits to passing gas. Objective VITAL SIGNS: Reviewed. See [facility] GENERAL: no apparent distress. HEENT: [Normocephalic, PER, EOMi, oropharynx pink/moist, no JVD noted.] CV: b/l rad pulses 2+, RRR, no murmurs or gallops, no JVD RESPIRATORY: CTAB without wheezes, rales, or rhonchi ABD: soft, diffsue moderate tenderness with light palpation most prominently in the RLQ, no rebound/guarding/rigidity, no peritoneal signs. Hypoactive bowel sounds present. INCISION: abdominal incision clean, dry, intact without purulence/bleeding/edema /rubor/calor. Bandages shows considerable serosanguinous drainage. NG TUBE: intact with brown.red fluid. EXTREMITY: grossly normal motor function, no pedal edema, peripheral pulses 2+ b /l NEUROLOGIC EXAM: AOx3, obeys commands, no speech deficits. PSYCHIATRIC: normal mood and affect SKIN: no gross lesions, rashes, or skin changes Vital Signs - Last 8 Hours Temp Pulse Resp BP Pulse Ox 12/16/17 10:32 98.2 F 125 17 132/90 93 12/16/17 06:34 98.4 F 118 18 130/86 96 12/16/17 04:23 97.8 F 121 18 121/85 95 Intake and Output 12/15/17 12/16/17 12/16/17 23:59 07:59 15:59 Intake Total 1000 / 1000 350 / 350 Output Total 1110 / 1110 200 / 200 Balance -110 / -110 150 / 150 Intake: IV Fluids 1000 / 1000 350 / 350 D5% And 0.9% Nacl 1000 Ml 1,000 1000 / 1000 ML @ 100 mls/hr IVC .Q10H [facility] Rx#:[id number] Zosyn 3.375 GM In 0.9 % Sodium 100 / 100 Chloride (Mini-Bag +) 100 ML @ 25 mls/hr IVPB Q8HR [facility] Rx#: [id number] Vancocin 1,000 MG In 0.9 % 250 / 250 Sodium Chloride 250 ML @ 166. 667 mls/hr IVPB Q24H [facility] Rx#: [id number] Oral 0 / 0 0 / 0 Output: Estimated Blood Loss 10 / 10 Urine Amount (Catheter) 350 / 350 Catheter 350 / 350 100 / 100 Gastric Drainage 400 / 400 100 / 100 Left Nare 400 / 400 100 / 100 Other: Meal NPO Blood Glucose* 92 205 - Labs 12/16/17 07:05 12/16/17 05:05 Diabetes panel 12/16/17 Range/Units 05:05 Sodium 142 (136-145) mEq/L Potassium 4.0 (3.5-5.1) mEq/L Chloride 107 (98-107) mEq/L Carbon Dioxide 31 H (23-29) mEq/L BUN 15 (8-23) mg/dL Creatinine 0.99 (0.60-1.20) mg/dL Glucose 216 H (70-105) mg/dL Calcium 7.7 L (8.6-10.3) mg/dL Calcium panel 12/16/17 Range/Units 05:05 Calcium 7.7 L (8.6-10.3) mg/dL Phosphorus 4.6 H (2.7-4.5) mg/dL Pituitary panel 12/16/17 Range/Units 05:05 Sodium 142 (136-145) mEq/L Potassium 4.0 (3.5-5.1) mEq/L Chloride 107 (98-107) mEq/L Carbon Dioxide 31 H (23-29) mEq/L BUN 15 (8-23) mg/dL Creatinine 0.99 (0.60-1.20) mg/dL Glucose 216 H (70-105) mg/dL Calcium 7.7 L (8.6-10.3) mg/dL Adrenal panel 12/16/17 Range/Units 05:05 Sodium 142 (136-145) mEq/L Potassium 4.0 (3.5-5.1) mEq/L Chloride 107 (98-107) mEq/L Carbon Dioxide 31 H (23-29) mEq/L BUN 15 (8-23) mg/dL Creatinine 0.99 (0.60-1.20) mg/dL Glucose 216 H (70-105) mg/dL Calcium 7.7 L (8.6-10.3) mg/dL - VTE Documentation of Mechanical Device: Intermittent pneumatic compression device Consult Discharge Plan - Plan Referrals: Sloane Murphy DO [Primary Care Provider] - Edmund Ritchie [Partnered Physician] - 12/31/17 3:30 pm <Nadeem Chauhan - Last Filed: 12/16/17 18:33> Date of Encounter: 12/16/17 Objective Vital Signs - Last 8 Hours Temp Pulse Resp BP Pulse Ox 12/16/17 15:23 97.8 F 20 112/67 95 12/16/17 14:57 98.2 F 66 17 106/70 97 12/16/17 13:16 97.3 F L 102 23 118/80 95 12/16/17 11:18 98.2 F 125 132/90 93 Intake and Output 12/16/17 12/16/17 12/16/17 07:59 15:59 23:59 Intake Total 350 / 350 100 / 100 100 / 100 Output Total 200 / 200 425 / 425 Balance 150 / 150 -325 / -325 100 / 100 Intake: IV Fluids 350 / 350 100 / 100 100 / 100 Ofirmev 1,000 mg/100 ml 1,000 100 / 100 mg In 100 ml @ 400 mls/hr IVPB Q6H [facility] Rx#:[id number] Zosyn 3.375 GM In 0.9 % Sodium 100 / 100 100 / 100 Chloride (Mini-Bag +) 100 ML @ 25 mls/hr IVPB Q8HR [facility] Rx#: [id number] Vancocin 1,000 MG In 0.9 % 250 / 250 Sodium Chloride 250 ML @ 166. 667 mls/hr IVPB Q24H [facility] Rx#: [id number] Oral 0 / 0 Output: Catheter 100 / 100 125 / 125 Gastric Drainage 100 / 100 300 / 300 Left Nare 100 / 100 300 / 300 Other: Meal NPO Blood Glucose* 205 105 - Labs 12/16/17 07:05 12/16/17 05:05 Diabetes panel 12/16/17 Range/Units 05:05 Sodium 142 (136-145) mEq/L Potassium 4.0 (3.5-5.1) mEq/L Chloride 107 (98-107) mEq/L Carbon Dioxide 31 H (23-29) mEq/L BUN 15 (8-23) mg/dL Creatinine 0.99 (0.60-1.20) mg/dL Glucose 216 H (70-105) mg/dL Calcium 7.7 L (8.6-10.3) mg/dL Calcium panel 12/16/17 Range/Units 05:05 Calcium 7.7 L (8.6-10.3) mg/dL Phosphorus 4.6 H (2.7-4.5) mg/dL Pituitary panel 12/16/17 Range/Units 05:05 Sodium 142 (136-145) mEq/L Potassium 4.0 (3.5-5.1) mEq/L Chloride 107 (98-107) mEq/L Carbon Dioxide 31 H (23-29) mEq/L BUN 15 (8-23) mg/dL Creatinine 0.99 (0.60-1.20) mg/dL Glucose 216 H (70-105) mg/dL Calcium 7.7 L (8.6-10.3) mg/dL Adrenal panel 05/24/18 Range/Units 05:05 Sodium 142 (136-145) mEq/L Potassium 4.0 (3.5-5.1) mEq/L Chloride 107 (98-107) mEq/L Carbon Dioxide 31 H (23-29) mEq/L BUN 15 (8-23) mg/dL Creatinine 0.99 (0.60-1.20) mg/dL Glucose 216 H (70-105) mg/dL Calcium 7.7 L (8.6-10.3) mg/dL - Attending Attestation I examined this patient and my medical decision-making was reviewed with the Resident Physician. I agree with the documented findings, disposition and treatment plan as described except to the extent set forth below. Noted soreness but patient tolerating with pain medication. Awaiting return of bowel function. NG tube in place and will continue for now. On TPN. Continue with dressing changes.
[2017-12-16] MEDS ORDERED: Saliva Stimulant 100ml BOTTLE PO PRN (11:14)
[2017-12-16] MEDS ORDERED: OXYCODONE Oral CONC 10 MG/0.5 ML ORAL.SYG SL PRN ×2 (11:19)
[2017-12-16] MEDS ORDERED: *HR* FentaNYL (PF) 100 MCG/2 ML VIAL IVP PRN (11:22)
[2017-12-16] MEDS ORDERED: BENZOCAINE/MENTHOL 1 LOZENGE (BAG OF 6) MM PRN (11:24)
[2017-12-16] MEDS: *HR* Metoprolol 5 MG/5 ML VIAL IVP SCH ×2 (12:17→18:28)
[2017-12-16] MEDS: Ketorolac 15 MG/ML VIAL IVP SCH ×2 (12:35→18:28)
[2017-12-16] MEDS: 0.9 % Sodium Chloride 1,000 ML IVC SCH (15:33)
[2017-12-16] MEDS: Acetaminophen IV 1,000 MG/100 ML INFUS..BTL IVPB SCH ×2 (15:34→21:14)
[2017-12-16] MEDS ORDERED: Clinimix E 5%-15% SOLUTION 2,000 ML with MVI, adult with vitamin K 10 ML IVC SCH (17:00)
[2017-12-17] MEDS: Insulin LISPRO 300 UNITS/3 ML VIAL SQ SCH ×6 (00:37→20:28)
[2017-12-17] MEDS: Piperacillin/Tazobactam 3.375 GM in 0.9 % Sodium Chloride Mini Bag 100 ML IVPB SCH ×4 (00:39→17:49)
[2017-12-17] MEDS: Ketorolac 15 MG/ML VIAL IVP SCH ×4 (00:42→17:49)
[2017-12-17] MEDS: *HR* Metoprolol 5 MG/5 ML VIAL IVP SCH ×4 (01:05→17:50)
[2017-12-17] MEDS: Acetaminophen IV 1,000 MG/100 ML INFUS..BTL IVPB SCH ×4 (03:53→20:21)
[2017-12-17 05:26] LABS: VBG Ionized Calcium 1.18 mmol/L (1.15-1.35); VBG PH 7.39 pH Units (7.32-7.42)
[2017-12-17 05:28] LABS: Basophils % 0.2 %; Eosinophils # 0.1 K/mcL (0.0-0.6); Eosinophils % 0.8 %; Hematocrit 23.5 % (35.3-44.9); Immature Granulocytes % 0.6 % (0-4); Lymphocytes % 13.1 %; Mean Corpuscular HGB Conc 32.3 g/dL (31.6-35.5); Mean Corpuscular Hemoglobin 30.3 pg (28.0-33.3); Mean Corpuscular Volume 93.6 fL (83.0-100.0); Mean Platelet Volume 10.1 fL (9.4-12.4); Monocytes # 0.8 K/mcL (0.0-1.3); Monocytes % 5.1 %; Neutrophils # 12.3 K/mcL (1.6-8.9); Platelet Count 353 K/mcL (140-400); Red Blood Count 2.51 M/mcL (3.82-4.97); Red Cell Distribution Width 16.3 % (11.5-14.5); Segmented Neutrophils % 80.2 %
[2017-12-17 05:29] LABS: Hemoglobin 7.6 g/dL (11.5-15.4)
[2017-12-17 05:46] LABS: BUN/Creatinine Ratio 27 (6-26); Blood Urea Nitrogen 25 mg/dL (8-23); Calcium 7.8 mg/dL (8.6-10.3); Carbon Dioxide 34 mEq/L (23-29); Chloride 105 mEq/L (98-107); Glucose 66 mg/dL (70-105); Magnesium 1.9 mg/dL (1.6-2.6); Osmolality,Calculated 295 (280-300); Phosphorous 3.1 mg/dL (2.7-4.5); Potassium 4.1 mEq/L (3.5-5.1); Sodium 141 mEq/L (136-145); eGFR For African Americans > 60 (> 60); eGFR For Non-African Americans > 60 (> 60)
[2017-12-17] MEDS: *HR* Heparin 5,000 UNIT/ML VIAL SQ SCH ×3 (06:27→21:59)
--- NOTE | 2017-12-17 08:41 | Internal Med Progress Note ---
Date of Encounter: 12/17/17 Time of Encounter: 08:41 - Assessment and plan (1) Small bowel obstruction Current Visit: No Status: Acute Assessment and plan: s/p exploratory celiotomy with lysis of adhesions Patient doing well this morning Management per Surgery. (2) PAF (paroxysmal atrial fibrillation) Current Visit: No Status: Chronic Assessment and plan: 1 EKG paced rhythm- rate 90 -100 discussed with both pharmacy and cardiology concerning rate control. Last admission seen by cardiology 12/01/2017 recommending digoxin 125mcg IV - with cardizem 5-10mg IV PRN HR >110 since patient NPO and experiencing afib. - Discussed with Molly Richards cardiology [employer] and [facility] pharmacist- will cont digoxin for rate control since patient NPO 12/16: Patient HR running 110-120s. She has significant history with atrial fibrillation. Previous admission patient had same issue and she was started on digoxin IV with IV lopressor as a prn. This was effective in controlling heart rate without excessive blood pressure drop. For now we will restart IV digoxin with IV Lopressor as prn. Cardiology was consulted during previous admission and was consulted yesterday, will follow recommendations. 12/17: HR within normal limits. Continue IV digoxin daily and IV metoprolol 2.5 mg Q6H with plan to transition to PO when able. (3) Diabetes mellitus, type 2 Current Visit: No Status: Chronic Assessment and plan: sliding scale insulin. Accuchecks q 4h SSI Acceptable glucose <180. 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 Planning to transition to oral therapy when able for medications. Qualifiers: Hypertension type: essential hypertension Qualified Code(s): I10 - Essential (primary) hypertension (5) Chronic respiratory failure Current Visit: Yes Status: Acute Assessment and plan: Aerosol treatment as needed She is back to home O2 levels 2-3L supplemental O2 via NC Continue incentive spirometry Qualifiers: Respiratory failure complication: unspecified whether with hypoxia or hypercapnia Qualified Code(s): J96.10 - Chronic respiratory failure, unspecified whether with hypoxia or hypercapnia (6) Leukocytosis Current Visit: Yes Status: Acute Assessment and plan: Treat both resp and abd etiology Continues to improve after surgery Likely reactive, will monitor Qualifiers: Leukocytosis type: bandemia Qualified Code(s): D72.825 - Bandemia (7) Coronary artery disease Current Visit: Yes Status: Acute Assessment and plan: On aspirin for home medication, will resume when able. Qualifiers: Coronary Disease-Associated Artery/Lesion type: unspecified vessel or lesion type [place] vs. transplanted heart: [place] heart Associated angina: angina presence unspecified Qualified Code(s): I25.10 - Atherosclerotic heart disease of [place] coronary artery without angina pectoris (8) (HFpEF) heart failure with preserved ejection fraction Current Visit: No Status: Chronic Assessment and plan: No acute exacerbation, currently appears euvolemic (9) DVT prophylaxis Current Visit: No Status: Acute Assessment and plan: heparin SQ - Time Spent With Patient Total time spent is greater than 50% in coordination of care (as documented) at patient's floor/unit and/or counseling patient: - Subjective Interval history: Patient has improving abdominal pain. She denies chest pain, SOB, palpitations , n/v, diaphoresis. - Constitutional Vitals: Temp Pulse Resp BP Pulse Ox 97.5 F L 89 18 100/56 98 12/17/17 07:18 12/17/17 07:18 12/17/17 07:18 12/17/17 08:02 12/17/17 07:18 General appearance: Present: A&O X 3 Exam: - Head Head exam: Present: atraumatic, normocephalic - Eye Eye exam: Present: PERRL, conjuntiva pink, sclera anicteric Pupils: Present: PERRL - Neck Neck exam general surgery: Present: supple, trachea midline. Absent: lymphadenopathy - Respiratory Respiratory exam: Present: CTAB. Absent: accessory muscle use, rales, rhonchi, wheezes - Cardiovascular Cardiovascular exam: Present: RRR, +S1, +S2. Absent: diastolic murmur, gallop, rubs, systolic murmur - GI/Abdominal GI/Abdominal exam: Present: normal bowel sounds, soft, no peritoneal signs. Absent: distended, tenderness - Extremities Exam Extremities exam: Present: warm, radial pulses palpable and symmetrical. Absent : calf tenderness, cyanotic, pedal edema - Neurological Exam Neurological exam: Present: CN II-XII intact, oriented X3, no focal deficits. Absent: pronater drift, facial droop, speech deficit - Skin Skin exam: Present: dry, intact Internal Medicine: Result - Labs CBC & Chem 7: 12/17/17 10:44 12/17/17 05:00 Labs: Short CBC 12/16/17 12/17/17 Range/Units 07:05 05:00 WBC 15.3 H (4.3-11.1) K/mcL Hgb 7.6 L D (11.5-15.4) g/dL Hct 23.5 L (35.3-44.9) % Plt Count 353 (140-400) K/mcL Neutrophils # 22.8 H 12.3 H (1.6-8.9) K/mcL BMP 12/17/17 05:00 Sodium 141 Potassium 4.1 Chloride 105 Carbon Dioxide 34 H BUN 25 H Creatinine 0.91 Glucose 66 L Calcium 7.8 L - ABG Interpretation ABG results: PT/INR, D-dimer PT 13.7 Seconds (9.4-12.1) H 12/14/17 02:49 - VTE Documentation of Mechanical Device: Intermittent pneumatic compression device Consult Discharge Plan - Plan Referrals: Sloane Murphy DO [Primary Care Provider] - Edmund Ritchie [Partnered Physician] - 12/31/17 3:30 pm
--- NOTE | 2017-12-17 08:49 | General Surgery Progress Note ---
<Cristobal Morris - Last Filed: 12/17/17 13:16> Date of Encounter: 12/17/17 Time of Encounter: 08:30 - Assessment and Plan (1) Small bowel obstruction Current Visit: No Status: Acute Patient displays considerable improvement in pain today. Her nausea has subsided. NG output of 500 ml yesterday and 900 ml today. She has been afebrile overnight. WBC count has dropped from 23.7 to 15.3 since yesterday. She still has not had a BM and continues to state that she does not pass gas. She had hypoactive bowel sounds on examination. - Plan is to continue with NPO status. Will reevaluate tomorrow and if she has more signs of returning bowel function we will advance to clear liquids. (2) Leukocytosis Current Visit: Yes Status: Acute WBC of 15.3 (yesterday at 23.7, 33.3 on admission). Most likely reactive. Patient afebrile overnight. Qualifiers: Leukocytosis type: bandemia Qualified Code(s): D72.825 - Bandemia (3) Anemia Current Visit: Yes Status: Acute Hgb dropped from 9.2 down to 7.6 since yesterday. Total input of 1150 and output of 1625. Balance of - 475. Drop in hemoglobin due to dilution unlikely.Will retest H/H and transfuse with 1 u blood if still low. Qualifiers: Anemia type: unspecified type Qualified Code(s): D64.9 - Anemia, unspecified Subjective Narrative: Patient says she feels significantly better from yesterday. She says the pain in her right upper and right lower quadrant has improved. She denies any nausea or vomiting today. Denies any chest pain or shortness of breath. Denies any overnight fever. Continues to deny bowel movement and says she has not passed gas since yesterday morning. Objective VITAL SIGNS: Reviewed. See [facility] GENERAL: No apparent distress. HEENT: [Normocephalic, PER, EOMi, oropharynx pink/moist, no JVD noted.] CV: b/l rad pulses 2+, RRR, no murmurs or gallops, no JVD RESPIRATORY: CTAB without wheezes, rales, or rhonchi ABD: soft, mild diffuse tenderness with deep palpation, no rebound/guarding/ rigidity, no peritoneal signs. Hypoactive bowel sounds present. INCISION: clean, dry, intact without purulence/edema/rubor/calor. Bandages had moderate amount of serosanguinous drainage. Small amount of blood clot found on bandages as well. EXTREMITY: grossly normal motor function, no pedal edema, peripheral pulses 2+ b /l NEUROLOGIC EXAM: AOx3, obeys commands, no speech deficits. PSYCHIATRIC: normal mood and affect SKIN: no gross lesions, rashes, or skin changes Vital Signs - Last 8 Hours Temp Pulse Resp BP Pulse Ox 12/17/17 08:02 100/56 12/17/17 07:18 97.5 F L 89 18 104/69 98 12/17/17 06:55 103/62 12/17/17 03:19 98.3 F 84 15 90/56 97 12/17/17 00:54 98/58 Intake and Output 12/16/17 12/17/17 12/17/17 23:59 07:59 15:59 Intake Total 300 / 300 400 / 400 Output Total 100 / 100 900 / 900 Balance 200 / 200 -500 / -500 Intake: IV Fluids 300 / 300 400 / 400 Ofirmev 1,000 mg/100 ml 1,000 200 / 200 100 / 100 mg In 100 ml @ 400 mls/hr IVPB Q6H [facility] Rx#:[id number] Zyvox Premix 600mg/300mL 600 mg 300 / 300 In 300 ml @ 150 mls/hr IVPB Q12HR [facility] Rx#:[id number] Zosyn 3.375 GM In 0.9 % Sodium 100 / 100 Chloride (Mini-Bag +) 100 ML @ 25 mls/hr IVPB Q8HR [facility] Rx#: [id number] Output: Gastric Drainage 100 / 100 900 / 900 Left Nare 100 / 100 900 / 900 Other: Percent of Meal Consumed 0% Weight 64 kg Blood Glucose* 181 140 Patient Weight 12/17/17 23:59 Weight 64 kg - Labs 12/17/17 05:00 12/17/17 05:00 Diabetes panel 12/17/17 Range/Units 05:00 Sodium 141 (136-145) mEq/L Potassium 4.1 (3.5-5.1) mEq/L Chloride 105 (98-107) mEq/L Carbon Dioxide 34 H (23-29) mEq/L BUN 25 H (8-23) mg/dL Creatinine 0.91 (0.60-1.20) mg/dL Glucose 66 L (70-105) mg/dL Calcium 7.8 L (8.6-10.3) mg/dL Calcium panel 12/17/17 Range/Units 05:00 Calcium 7.8 L (8.6-10.3) mg/dL Phosphorus 3.1 (2.7-4.5) mg/dL Pituitary panel 12/17/17 Range/Units 05:00 Sodium 141 (136-145) mEq/L Potassium 4.1 (3.5-5.1) mEq/L Chloride 105 (98-107) mEq/L Carbon Dioxide 34 H (23-29) mEq/L BUN 25 H (8-23) mg/dL Creatinine 0.91 (0.60-1.20) mg/dL Glucose 66 L (70-105) mg/dL Calcium 7.8 L (8.6-10.3) mg/dL Adrenal panel 12/17/17 Range/Units 05:00 Sodium 141 (136-145) mEq/L Potassium 4.1 (3.5-5.1) mEq/L Chloride 105 (98-107) mEq/L Carbon Dioxide 34 H (23-29) mEq/L BUN 25 H (8-23) mg/dL Creatinine 0.91 (0.60-1.20) mg/dL Glucose 66 L (70-105) mg/dL Calcium 7.8 L (8.6-10.3) mg/dL - VTE Documentation of Mechanical Device: Intermittent pneumatic compression device Consult Discharge Plan - Plan Referrals: Sloane Murphy DO [Primary Care Provider] - Edmund Ritchie [Partnered Physician] - 12/31/17 3:30 pm <Marcus Brennan - Last Filed: 12/18/17 18:29> Date of Encounter: 12/18/17 - Assessment and Plan (1) Small bowel obstruction Current Visit: Yes Status: Acute Objective Vital Signs - Last 8 Hours Temp Pulse Resp BP Pulse Ox 12/18/17 15:23 97.5 F L 92 16 103/63 96 12/18/17 11:30 97.4 F L 101 16 114/77 96 Intake and Output 05/12/18/17 12/18/17 07:59 15:59 23:59 Intake Total 500 / 500 200 / 200 Output Total 750 / 750 1000 / 1000 1000 / 1000 Balance -250 / -250 -800 / -800 -1000 / -1000 Intake: IV Fluids 200 / 200 200 / 200 Ofirmev 1,000 mg/100 ml 1,000 100 / 100 100 / 100 mg In 100 ml @ 400 mls/hr IVPB Q6H [facility] Rx#:[id number] Zosyn 3.375 GM In 0.9 % Sodium 100 / 100 100 / 100 Chloride (Mini-Bag +) 100 ML @ 25 mls/hr IVPB Q8H [facility] Rx#: [id number] Blood Product 300 / 300 Rbcs Leuko Poor As-1 Unit 300 / 300 [id number] Output: Gastric Drainage 750 / 750 1000 / 1000 1000 / 1000 Left Nare 750 / 750 1000 / 1000 1000 / 1000 Other: Meal NPO for breakfast. Percent of Meal Consumed 0% Stool Size Moderate Moderate Stool Consistency liquid liquid Stool Color Brown Brown # Bowel Movements 1 3 Weight 63 kg Blood Glucose* 185 124 Patient Weight 12/18/17 23:59 Weight 63 kg - Labs 12/18/17 06:53 12/18/17 03:15 Diabetes panel 12/18/17 Range/Units 03:15 Sodium 142 (136-145) mEq/L Potassium 3.9 (3.5-5.1) mEq/L Chloride 100 (98-107) mEq/L Carbon Dioxide 39 H (23-29) mEq/L BUN 29 H (8-23) mg/dL Creatinine 0.78 (0.60-1.20) mg/dL Glucose 142 H (70-105) mg/dL Calcium 8.3 L (8.6-10.3) mg/dL Calcium panel 12/18/17 Range/Units 03:15 Calcium 8.3 L (8.6-10.3) mg/dL Phosphorus 3.5 (2.7-4.5) mg/dL Pituitary panel 12/18/17 Range/Units 03:15 Sodium 142 (136-145) mEq/L Potassium 3.9 (3.5-5.1) mEq/L Chloride 100 (98-107) mEq/L Carbon Dioxide 39 H (23-29) mEq/L BUN 29 H (8-23) mg/dL Creatinine 0.78 (0.60-1.20) mg/dL Glucose 142 H (70-105) mg/dL Calcium 8.3 L (8.6-10.3) mg/dL Adrenal panel 12/18/17 Range/Units 03:15 Sodium 142 (136-145) mEq/L Potassium 3.9 (3.5-5.1) mEq/L Chloride 100 (98-107) mEq/L Carbon Dioxide 39 H (23-29) mEq/L BUN 29 H (8-23) mg/dL Creatinine 0.78 (0.60-1.20) mg/dL Glucose 142 H (70-105) mg/dL Calcium 8.3 L (8.6-10.3) mg/dL - Attending Attestation I have personally seen and examined the patient. I have reviewed pertinent labs , imaging, progress notes, including this one. I agree with the above assessment and plan
[2017-12-17] MEDS: *HR* Digoxin 0.5 MG/2 ML AMPUL IVP SCH (09:17)
--- NOTE | 2017-12-17 11:46 | Cardiology Progress Note ---
Date of Encounter: 12/17/17 Time of Encounter: 09:45 Assessment and Plan (1) Small bowel obstruction Current Visit: No Status: Acute Per cardiology: -Recent small bowel obstruction. -Currently NPO with NG tube to suction. -Requiring TPN. -Management per primary and surgery services. (2) Atrial fibrillation/flutter Current Visit: Yes Status: Acute Per cardiology: -Admitted with small bowel obstruction. Currently NPO with NG tube. -Hx of atrial flutter ablation. -Currently a.fib/flutter RVR, average HR 86. 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 -She continues to be on aspirin for stroke risk reduction in outpatient setting. Patient is aware of increased risk of CVA/emolic event while not on full anticoagulation. Not currently receiving. -TTE 10/2017 EF 60%, mild concentric LVH, moderate diastolic dysfunction, mildly dilated RV, mildly dilated LA, moderate pulmonary hypertension, no segmental wall motion abnormalities. -Had been on cardizem CD 120mg in outpatient setting, now unable to take oral medications. Currently receiving digoxin 0.125mg IV daily and metoprolol 2.5mg IV [id number] -Continue IV medications until able to take oral. -Cardiology will sign off. Recommend continuing home rate controlling medication when able to take oral meds (cardizem CD 120mg daily). -Will set up outpatient follow up. (3) History of ventricular tachycardia Current Visit: No Status: Acute Per cardiology: -History of VT, has ICD. -Previously on amiodarone, stopped during last hospital admission due to worsening respiratory status. -Follows with Dr.John Kearns, is supposed to have repeat PFT in outpatient setting. -Denies ICD shocks. -[facility] 05/2016 with angiographically normal coronaries. Discussion w patient/family: The assessment and plan as outlined above was discussed with the patient who expressed understanding and agreement. All questions were answered. Thank you for involving us in the care of your patient. Please call with any questions. Discussed and reviewed with . Subjective Principal diagnosis: Abdominal pain Interval history: Patient reports abdominal pain in improved today. States she feels much better today. Objective Vital Signs, Last 4 Hours Temp Pulse Resp BP Pulse Ox 12/17/17 10:56 97.5 F L 90 16 99/63 97 12/17/17 08:02 100/56 General: Conversant, No Apparent Distress HEENT: Atraumatic, Normocephaly, Mucus Membranes Moist Neck: No JVD, Normal carotid pulses Cardiac: Normal S1 and S2, No Murmur, Other (Irregularly irregular) Lungs: Normal Breath Sounds, No Wheeze, Rales, Rhonchi Neuro: Alert and responsive, No focal deficits noted Abdomen: Soft, Other (Tender, NG tube noted to suction. ) Skin: No rashes noted on visualized skin Musculoskeletal: No Chest Wall Tenderness Extremities: No Clubbing, No Cyanosis, No Edema, Normal Pulses Results 12/17/17 05:00 12/17/17 05:00 Lab Results Active Medications Benzocaine/Menthol (Chloraseptic Sore Throat Lozng) 1 lozenge MM Q2H PRN PRN Reason: Sore Throat Stop: 06/17/18 11:25 Dextrose/Water (Dextrose 50% (Syg)) 25 ml IVP AD PRN PRN Reason: Hypoglycemia Stop: 06/15/18 02:02 Digoxin (Lanoxin) 0.125 mg IVP DAILY [facility] Stop: 06/17/18 09:01 Last Admin: 12/17/17 09:17 Dose: 0.125 mg Fentanyl Citrate (Fentanyl (Pf)) 25 mcg IVP Q2H PRN PRN Reason: Severe Pain/Breakthrough pain Stop: 06/16/18 21:06 Glucagon (Glucagen) 1 mg IM ONCE PRN PRN Reason: Hypoglycemia Stop: 06/15/18 02:02 Glucose (Gluctose) 15 gm PO ONCE PRN PRN Reason: Hypoglycemia Stop: 06/15/18 02:02 Glucose (Gluctose) 30 gm PO ONCE PRN PRN Reason: Hypoglycemia Stop: 06/15/18 02:02 Heparin Sodium (Porcine) (Heparin) 5,000 unit SQ Q8HCO [facility] Stop: 06/17/18 06:01 Last Admin: 12/17/17 06:27 Dose: 5,000 unit Dextrose (Dextrose 10% Water 500 Ml Ivbag) 500 mls @ 50 mls/hr IVC .Q10H PRN PRN Reason: TPN delayed or interrupted Stop: 06/16/18 11:47 Dextrose/Sodium Chloride (D5% And 0.9% Nacl 1000 Ml) 1,000 mls @ 100 mls/hr IVC .Q10H [facility] Stop: 06/16/18 04:31 Last Admin: 12/15/17 21:45 Dose: Not Given Dextrose (Dextrose 5%) 1,000 mls @ 100 mls/hr IVC .Q10H PRN PRN Reason: HYPOGLYCEMIA Stop: 06/15/18 02:02 Multivitamins 10 ml/ Amino (Acids/Electrolytes) 2,010 mls @ 60 mls/hr IVC .Q24H [facility] PRN Reason: Protocol Stop: 12/17/17 16:59 Last Admin: 12/16/17 18:29 Dose: 60 ml/hr, 60 mls/hr Acetaminophen (Ofirmev 1,000 Mg/100 Ml) 1,000 mg in 100 mls @ 400 mls/hr IVPB Q6H [facility] Stop: 06/17/18 15:01 Last Admin: 12/17/17 09:17 Dose: 400 mls/hr Sodium Chloride (0.9 % Sodium Chloride) 1,000 mls @ 35 mls/hr IVC .Q24H [facility] Stop: 06/17/18 11:19 Last Admin: 12/16/17 15:33 Dose: 35 mls/hr Linezolid/Dextrose (Zyvox Premix 600mg/300ml) 600 mg in 300 mls @ 150 mls/hr IVPB Q12HR [facility] Stop: 06/17/18 18:01 Last Admin: 12/17/17 06:29 Dose: 150 mls/hr Piperacillin Sod/Tazobactam (Sod 3.375 gm/ Sodium Chloride) 100 mls @ 25 mls/ hr IVPB Q8H [facility] Stop: 06/18/18 10:01 Insulin Human Lispro (Humalog) 0 units SQ Q4H [facility] PRN Reason: Protocol Stop: 06/17/18 11:01 Last Admin: 12/17/17 07:47 Dose: Not Given Ketorolac Tromethamine (Toradol) 15 mg IVP Q6HR [facility] Stop: 12/21/17 12:01 Last Admin: 12/17/17 06:27 Dose: 15 mg Metoprolol Tartrate (Lopressor) 2.5 mg IVP Q6HR [facility] Stop: 06/17/18 12:01 Last Admin: 12/17/17 06:55 Dose: Not Given Naloxone HCl (Narcan) 0.4 mg IVP Q2MIN PRN PRN Reason: SEE COMMENTS Stop: 06/15/18 02:02 Ondansetron HCl (Zofran) 4 mg IVP Q6HR PRN; Protocol PRN Reason: Nausea And Vomiting Stop: 06/15/18 02:00 Oxycodone HCl (Oxycodone Oral Conc) 5 mg SL Q6HR PRN; Protocol PRN Reason: mild-moderate pain Stop: 06/17/18 11:20 Oxycodone HCl (Oxycodone Oral Conc) 10 mg SL Q6HR PRN; Protocol PRN Reason: Moderate Pain Stop: 06/17/18 11:20 Promethazine HCl (Phenergan) 12.5 mg IVP Q4HR PRN PRN Reason: Nausea And Vomiting Stop: 06/15/18 02:01 Saliva Substitute (Biotene Moisturizing Rinse) 1 spray PO Q2H PRN PRN Reason: Dry mouth Stop: 06/17/18 11:15 Last Admin: 12/16/17 15:34 Dose: 1 spray Laboratory Tests 12/17/17 12/17/17 05:00 05:00 WBC 15.3 H Hgb 7.6 L D Potassium 4.1 Creatinine 0.91 Magnesium 1.9 - Imaging and Cardiology Chest Xray: report reviewed Echo: report reviewed Cardiac cath: report reviewed - EKG Interpretation EKG results cardiology: other (Telemetry reviewed with average HR previous 12 hours noted to be 86, a.fib/flutter.) - VTE Documentation of Mechanical Device: Intermittent pneumatic compression device Consult Discharge Plan - Plan Referrals: Sloane Murphy DO [Primary Care Provider] - Edmund Ritchie [Partnered Physician] - 12/31/17 3:30 pm
[2017-12-17] MEDS ORDERED: D10% in Water 500 ML IVC PRN ×2 (11:58→11:59)
[2017-12-17] MEDS: Ondansetron 4 MG/2 ML VIAL IVP PRN (12:12)
[2017-12-17 15:24] LABS: Hematocrit 23.9 % (35.3-44.9); Hemoglobin 7.8 g/dL (11.5-15.4)
[2017-12-17] MEDS ORDERED: Clinimix E 5%-15% SOLUTION 2,000 ML with MVI, adult with vitamin K 10 ML IVC SCH (17:00)
[2017-12-17] MEDS: *HR* Promethazine 25 MG/ML VIAL IVP PRN (17:49)
[2017-12-18] MEDS: *HR* Metoprolol 5 MG/5 ML VIAL IVP SCH ×4 (00:05→17:42)
[2017-12-18] MEDS: Ketorolac 15 MG/ML VIAL IVP SCH ×4 (00:05→17:40)
[2017-12-18] MEDS: Insulin LISPRO 300 UNITS/3 ML VIAL SQ SCH ×6 (01:41→22:05)
[2017-12-18] MEDS: Piperacillin/Tazobactam 3.375 GM in 0.9 % Sodium Chloride Mini Bag 100 ML IVPB SCH ×3 (02:06→17:38)
[2017-12-18] MEDS: Acetaminophen IV 1,000 MG/100 ML INFUS..BTL IVPB SCH ×4 (02:10→22:36)
[2017-12-18 03:54] LABS: BUN/Creatinine Ratio 37 (6-26); Blood Urea Nitrogen 29 mg/dL (8-23); Calcium 8.3 mg/dL (8.6-10.3); Carbon Dioxide 39 mEq/L (23-29); Chloride 100 mEq/L (98-107); Glucose 142 mg/dL (70-105); Magnesium 1.8 mg/dL (1.6-2.6); Osmolality,Calculated 302 (280-300); Phosphorous 3.5 mg/dL (2.7-4.5); Potassium 3.9 mEq/L (3.5-5.1); Sodium 142 mEq/L (136-145); eGFR For African Americans > 60 (> 60); eGFR For Non-African Americans > 60 (> 60)
[2017-12-18] MEDS: *HR* Heparin 5,000 UNIT/ML VIAL SQ SCH ×3 (06:04→21:54)
[2017-12-18 07:42] LABS: Basophils # 0.1 K/mcL (0.0-0.2); Basophils % 0.3 %; Eosinophils # 0.3 K/mcL (0.0-0.6); Eosinophils % 1.7 %; Immature Granulocytes % 0.5 % (0-4); Lymphocytes # 1.6 K/mcL (0.6-4.6); Lymphocytes % 10.7 %; Mean Corpuscular HGB Conc 31.8 g/dL (31.6-35.5); Mean Corpuscular Hemoglobin 28.8 pg (28.0-33.3); Mean Corpuscular Volume 90.7 fL (83.0-100.0); Mean Platelet Volume 10.2 fL (9.4-12.4); Monocytes # 0.5 K/mcL (0.0-1.3); Monocytes % 3.6 %; Neutrophils # 12.4 K/mcL (1.6-8.9); Platelet Count 316 K/mcL (140-400); Red Blood Count 3.64 M/mcL (3.82-4.97); Red Cell Distribution Width 17.5 % (11.5-14.5); Segmented Neutrophils % 83.2 %
[2017-12-18 07:48] LABS: Hemoglobin 10.5 g/dL (11.5-15.4)
[2017-12-18] MEDS: *HR* Digoxin 0.5 MG/2 ML AMPUL IVP SCH (08:42)
--- NOTE | 2017-12-18 14:21 | General Surgery Progress Note ---
Date of Encounter: 12/18/17 Time of Encounter: 14:15 - Assessment and Plan (1) Small bowel obstruction Current Visit: Yes Status: Acute POD#3 s/p ex lap, XIAO; pain is appropriate; reports having episode of flatus and bowel movement, all liquid; abdomen is soft, mildy distended; NG output >2L keep nPO KUb to assess NG tube output cont TPN activity as tolerated pulm toileting; replete lytes (either IVPB or in TPN) serial exams will cont to follow Subjective Patient reports: no new complaints, feels better, still having pain, pain is less, flatus, bowel movement (all liquid stool) Objective Vital Signs - Last 8 Hours Temp Pulse Resp BP Pulse Ox 12/18/17 11:30 97.4 F L 101 16 114/77 96 12/18/17 07:33 97.9 F 81 16 113/79 97 Intake and Output 12/17/17 12/18/17 12/18/17 23:59 07:59 15:59 Intake Total 950 / 950 500 / 500 Output Total 1650 / 1650 750 / 750 Balance -700 / -700 -250 / -250 Intake: IV Fluids 600 / 600 200 / 200 Ofirmev 1,000 mg/100 ml 1,000 200 / 200 100 / 100 mg In 100 ml @ 400 mls/hr IVPB Q6H [facility] Rx#:[id number] Zyvox Premix 600mg/300mL 600 mg 300 / 300 In 300 ml @ 150 mls/hr IVPB Q12HR [facility] Rx#:[id number] Zosyn 3.375 GM In 0.9 % Sodium 100 / 100 100 / 100 Chloride (Mini-Bag +) 100 ML @ 25 mls/hr IVPB Q8H [facility] Rx#: [id number] Blood Product 350 / 350 300 / 300 Rbcs Leuko Poor As-1 Unit 0 / 0 300 / 300 [id number] Rbcs Leuko Poor As-1 Unit 350 / 350 [id number] Output: Gastric Drainage 1650 / 1650 750 / 750 Left Nare 1650 / 1650 750 / 750 Other: Meal NPO for breakfast. Percent of Meal Consumed 0% Stool Size Moderate Stool Consistency liquid Stool Color Brown # Bowel Movements 1 Weight 63 kg Blood Glucose* 141 185 120 Patient Weight 12/18/17 23:59 Weight 63 kg - General physical appearance no distress - Respiratory normal expansion, normal respiratory effort - Cardiovascular Cardiovascular exam: Present: RRR - Abdomen Abdomen: Present: soft, tender (appropriately tender to palpation) - Neurologic CN 2-12 grossly intact - Labs 12/18/17 06:53 12/18/17 03:15 Diabetes panel 12/18/17 Range/Units 03:15 Sodium 142 (136-145) mEq/L Potassium 3.9 (3.5-5.1) mEq/L Chloride 100 (98-107) mEq/L Carbon Dioxide 39 H (23-29) mEq/L BUN 29 H (8-23) mg/dL Creatinine 0.78 (0.60-1.20) mg/dL Glucose 142 H (70-105) mg/dL Calcium 8.3 L (8.6-10.3) mg/dL Calcium panel 12/18/17 Range/Units 03:15 Calcium 8.3 L (8.6-10.3) mg/dL Phosphorus 3.5 (2.7-4.5) mg/dL Pituitary panel 12/18/17 Range/Units 03:15 Sodium 142 (136-145) mEq/L Potassium 3.9 (3.5-5.1) mEq/L Chloride 100 (98-107) mEq/L Carbon Dioxide 39 H (23-29) mEq/L BUN 29 H (8-23) mg/dL Creatinine 0.78 (0.60-1.20) mg/dL Glucose 142 H (70-105) mg/dL Calcium 8.3 L (8.6-10.3) mg/dL Adrenal panel 12/18/17 Range/Units 03:15 Sodium 142 (136-145) mEq/L Potassium 3.9 (3.5-5.1) mEq/L Chloride 100 (98-107) mEq/L Carbon Dioxide 39 H (23-29) mEq/L BUN 29 H (8-23) mg/dL Creatinine 0.78 (0.60-1.20) mg/dL Glucose 142 H (70-105) mg/dL Calcium 8.3 L (8.6-10.3) mg/dL - VTE Documentation of Mechanical Device: Intermittent pneumatic compression device Consult Discharge Plan - Plan Referrals: Sloane Murphy DO [Primary Care Provider] - Edmund Ritchie [Partnered Physician] - 12/31/17 3:30 pm
--- NOTE | 2017-12-18 16:41 | Internal Med Progress Note ---
Date of Encounter: 12/18/17 Time of Encounter: 16:41 - Assessment and plan (1) Small bowel obstruction Current Visit: Yes Status: Acute Assessment and plan: s/p exploratory celiotomy with lysis of adhesions NG currently with TPN Management per Surgery. (2) PAF (paroxysmal atrial fibrillation) Current Visit: No Status: Chronic Assessment and plan: 1 EKG paced rhythm- rate 90 -100 discussed with both pharmacy and cardiology concerning rate control. Last admission seen by cardiology 12/01/2017 recommending digoxin 125mcg IV - with cardizem 5-10mg IV PRN HR >110 since patient NPO and experiencing afib. - Discussed with Molly Richards cardiology [employer] and [place] pharmacist- will cont digoxin for rate control since patient NPO 12/16: Patient HR running 110-120s. She has significant history with atrial fibrillation. Previous admission patient had same issue and she was started on digoxin IV with IV lopressor as a prn. This was effective in controlling heart rate without excessive blood pressure drop. For now we will restart IV digoxin with IV Lopressor as prn. Cardiology was consulted during previous admission and was consulted yesterday, will follow recommendations. 12/17: HR within normal limits. Continue IV digoxin daily and IV metoprolol 2.5 mg Q6H with plan to transition to PO when able. 12/18: no acute changes, HR within acceptable limits (3) Diabetes mellitus, type 2 Current Visit: No Status: Chronic Assessment and plan: sliding scale insulin. Accuchecks q 4h SSI Acceptable glucose <180. Qualifiers: Diabetes mellitus long-term insulin use: without intermediate project manager use Diabetes mellitus complication status: with unspecified complications Qualified Code(s) : E11.8 - Type 2 diabetes mellitus with unspecified complications (4) HTN (hypertension) Current Visit: No Status: Chronic Assessment and plan: Currently BP runs in lower-normal limits. Continue lopressor IV 2.5 mg Q6H, (mostly used for rate control) Qualifiers: Hypertension type: essential hypertension Qualified Code(s): I10 - Essential (primary) hypertension (5) Chronic respiratory failure Current Visit: Yes Status: Acute Assessment and plan: Aerosol treatment as needed She is back to home O2 levels 2-3L supplemental O2 via NC Continue incentive spirometry Qualifiers: Respiratory failure complication: unspecified whether with hypoxia or hypercapnia Qualified Code(s): J96.10 - Chronic respiratory failure, unspecified whether with hypoxia or hypercapnia (6) Leukocytosis Current Visit: Yes Status: Acute Assessment and plan: Treat both resp and abd etiology Continues to improve after surgery Likely reactive and or with pneumonitis component. Continue supportive post-op care, continue antibiotics, will monitor Qualifiers: Leukocytosis type: bandemia Qualified Code(s): D72.825 - Bandemia (7) Coronary artery disease Current Visit: Yes Status: Acute Assessment and plan: On aspirin for home medication, will resume when able. Qualifiers: Coronary Disease-Associated Artery/Lesion type: unspecified vessel or lesion type [place] vs. transplanted heart: [place] heart Associated angina: angina presence unspecified Qualified Code(s): I25.10 - Atherosclerotic heart disease of [place] coronary artery without angina pectoris (8) (HFpEF) heart failure with preserved ejection fraction Current Visit: No Status: Chronic Assessment and plan: No acute exacerbation, currently appears euvolemic (9) DVT prophylaxis Current Visit: No Status: Acute Assessment and plan: heparin SQ - Time Spent With Patient Total time spent is greater than 50% in coordination of care (as documented) at patient's floor/unit and/or counseling patient: - Subjective Interval history: She denies chest pain, SOB, palpitations, n/v, diaphoresis. Has desire to eat but BG tube has much more output today. - Constitutional Vitals: Temp Pulse Resp BP Pulse Ox 97.5 F L 92 16 103/63 96 12/18/17 15:23 12/18/17 15:23 12/18/17 15:23 12/18/17 15:23 12/18/17 15:23 General appearance: Present: A&O X 3 Exam: Gen: AAOx3, NAD NG tube CVS: irregularly irregular rhythm, normal rate Lungs: CTAB, decreased breath sounds at bases Abd; nt/nd Ext: no edema, no cyanosis Internal Medicine: Result - Labs CBC & Chem 7: 12/18/17 06:53 12/18/17 03:15 Labs: Short CBC 12/18/17 Range/Units 06:53 WBC 14.9 H (4.3-11.1) K/mcL Hgb 10.5 L D (11.5-15.4) g/dL Hct 33.0 L (35.3-44.9) % Plt Count 316 (140-400) K/mcL Neutrophils # 12.4 H (1.6-8.9) K/mcL BMP 12/18/17 03:15 Sodium 142 Potassium 3.9 Chloride 100 Carbon Dioxide 39 H BUN 29 H Creatinine 0.78 Glucose 142 H Calcium 8.3 L - ABG Interpretation ABG results: PT/INR, D-dimer PT 13.7 Seconds (9.4-12.1) H 12/14/17 02:49 - Impressions Impressions KUB X-Ray 12/18/17 13:48 IMPRESSION: 1. Advancement of the gastric tube, now terminating in the gastric fundus. The sideport is also in the fundus below the gastroesophageal junction. 2. Increased diffuse gaseous bowel distention suggestive of ileus given reported surgery. D/ / Randy Rai MD / Randy Rai MD Interpreting Provider: Randy Rai MD - VTE Documentation of Mechanical Device: Intermittent pneumatic compression device Consult Discharge Plan - Plan Referrals: Sloane Murphy DO [Primary Care Provider] - Edmund Ritchie [Partnered Physician] - 12/31/17 3:30 pm
[2017-12-18] MEDS ORDERED: Clinimix E 5%-15% SOLUTION 2,000 ML with MVI, adult with vitamin K 10 ML IVC SCH (17:00)
[2017-12-19] MEDS: *HR* Metoprolol 5 MG/5 ML VIAL IVP SCH ×4 (00:27→17:10)
[2017-12-19] MEDS: Ketorolac 15 MG/ML VIAL IVP SCH ×4 (00:27→17:11)
[2017-12-19] MEDS: Insulin LISPRO 300 UNITS/3 ML VIAL SQ SCH ×6 (02:10→21:30)
[2017-12-19] MEDS: Acetaminophen IV 1,000 MG/100 ML INFUS..BTL IVPB SCH ×4 (02:52→21:47)
[2017-12-19] MEDS: Piperacillin/Tazobactam 3.375 GM in 0.9 % Sodium Chloride Mini Bag 100 ML IVPB SCH ×3 (03:27→18:58)
[2017-12-19 04:13] LABS: Magnesium 1.7 mg/dL (1.6-2.6); Phosphorous 3.9 mg/dL (2.7-4.5)
[2017-12-19 04:22] LABS: BUN/Creatinine Ratio 52 (6-26); Blood Urea Nitrogen 33 mg/dL (8-23); Calcium 8.5 mg/dL (8.6-10.3); Carbon Dioxide > 45 mEq/L (23-29); Chloride 96 mEq/L (98-107); Glucose 144 mg/dL (70-105); Osmolality,Calculated 314 (280-300); Potassium 3.5 mEq/L (3.5-5.1); Sodium 147 mEq/L (136-145); eGFR For African Americans > 60 (> 60); eGFR For Non-African Americans > 60 (> 60)
[2017-12-19] MEDS: 0.9 % Sodium Chloride 1,000 ML IVC SCH ×2 (05:20)
[2017-12-19] MEDS: *HR* Heparin 5,000 UNIT/ML VIAL SQ SCH ×3 (06:06→21:31)
[2017-12-19] MEDS: *HR* Digoxin 0.5 MG/2 ML AMPUL IVP SCH (08:43)
--- NOTE | 2017-12-19 09:26 | Internal Med Progress Note ---
Date of Encounter: 12/19/17 Time of Encounter: 09:34 - Assessment and plan (1) Small bowel obstruction Current Visit: Yes Status: Acute Assessment and plan: s/p exploratory celiotomy with lysis of adhesions NG currently and with TPN running Management per Surgery. (2) PAF (paroxysmal atrial fibrillation) Current Visit: No Status: Chronic Assessment and plan: Continue Digoxin and metoprolol, rate controlled Not on anticoagulation because history of alveolar hemorrhage. (3) Diabetes mellitus, type 2 Current Visit: No Status: Chronic Assessment and plan: sliding scale insulin. Accuchecks q 4h SSI Acceptable glucose <180. Qualifiers: Diabetes mellitus correction insulin use: without superintendent container terminal use Diabetes mellitus complication status: with unspecified complications Qualified Code(s) : E11.8 - Type 2 diabetes mellitus with unspecified complications (4) HTN (hypertension) Current Visit: No Status: Chronic Assessment and plan: Currently BP runs in lower-normal limits. Continue lopressor IV 2.5 mg Q6H Qualifiers: Hypertension type: essential hypertension Qualified Code(s): I10 - Essential (primary) hypertension (5) Chronic respiratory failure Current Visit: Yes Status: Acute Assessment and plan: Aerosol treatment as needed She is back to home O2 levels 2-3L supplemental O2 via NC Continue incentive spirometry Qualifiers: Respiratory failure complication: unspecified whether with hypoxia or hypercapnia Qualified Code(s): J96.10 - Chronic respiratory failure, unspecified whether with hypoxia or hypercapnia (6) Leukocytosis Current Visit: Yes Status: Acute Assessment and plan: Treat both resp and abd etiology Continues to improve after surgery Likely reactive and or with pneumonitis component. CBC pending this AM Qualifiers: Leukocytosis type: bandemia Qualified Code(s): D72.825 - Bandemia (7) Coronary artery disease Current Visit: Yes Status: Acute Assessment and plan: On aspirin for home medication, will resume when able. Qualifiers: Coronary Disease-Associated Artery/Lesion type: unspecified vessel or lesion type [place] vs. transplanted heart: [place] heart Associated angina: angina presence unspecified Qualified Code(s): I25.10 - Atherosclerotic heart disease of [place] coronary artery without angina pectoris (8) (HFpEF) heart failure with preserved ejection fraction Current Visit: No Status: Chronic Assessment and plan: No acute exacerbation, currently appears euvolemic (9) DVT prophylaxis Current Visit: No Status: Acute Assessment and plan: heparin SQ - Time Spent With Patient Total time spent is greater than 50% in coordination of care (as documented) at patient's floor/unit and/or counseling patient: - Subjective Interval history: She denies chest pain, SOB, palpitations, n/v, diaphoresis. Patient abdominal pain getting better States she has had up to 4 bowel movements in the past day - Constitutional Vitals: Temp Pulse Resp BP Pulse Ox 98.4 F 88 16 131/90 100 12/19/17 07:27 12/19/17 07:27 12/19/17 07:27 12/19/17 07:27 12/19/17 07:27 General appearance: Present: A&O X 3 Exam: Gen: AAOx3, NAD NG tube CVS: irregularly irregular rhythm, normal rate Lungs: CTAB, decreased breath sounds at bases Abd; nt/nd excluding surgical region, normal BS, Ext: no edema, no cyanosis Internal Medicine: Result - Labs CBC & Chem 7: 12/18/17 06:53 12/19/17 03:40 Labs: BMP 12/19/17 03:40 Sodium 147 H Potassium 3.5 Chloride 96 L Carbon Dioxide > 45 H* BUN 33 H Creatinine 0.64 Glucose 144 H Calcium 8.5 L - ABG Interpretation ABG results: PT/INR, D-dimer PT 13.7 Seconds (9.4-12.1) H 12/14/17 02:49 - Impressions Impressions KUB X-Ray 12/18/17 13:48 IMPRESSION: 1. Advancement of the gastric tube, now terminating in the gastric fundus. The sideport is also in the fundus below the gastroesophageal junction. 2. Increased diffuse gaseous bowel distention suggestive of ileus given reported surgery. D/ / Randy Rai MD / Randy Rai MD Interpreting Provider: Randy Rai MD - VTE Documentation of Mechanical Device: Intermittent pneumatic compression device Consult Discharge Plan - Plan Referrals: Sloane Murphy DO [Primary Care Provider] - Edmund Ritchie [Partnered Physician] - 12/31/17 3:30 pm
[2017-12-19 11:45] LABS: Mean Corpuscular HGB Conc 27.8 g/dL (31.6-35.5); Mean Platelet Volume 10.3 fL (9.4-12.4); Red Cell Distribution Width 18.1 % (11.5-14.5)
[2017-12-19 11:47] LABS: Hematocrit 31.7 % (35.3-44.9); Hemoglobin 8.8 g/dL (11.5-15.4); Mean Corpuscular Hemoglobin 28.8 pg (28.0-33.3); Mean Corpuscular Volume 103.6 fL (83.0-100.0); Platelet Count 276 K/mcL (140-400); Red Blood Count 3.06 M/mcL (3.82-4.97)
[2017-12-19 12:06] LABS: Eosinophils # 0.2 K/mcL (0.0-0.6); Hypochromasia Present (Not Present); Lymphocytes # 1.4 K/mcL (0.6-4.6); Monocytes # 0.2 K/mcL (0.0-1.3); Neutrophils # 8.3 K/mcL (1.6-8.9); Platelet Estimate Normal (Normal)
--- NOTE | 2017-12-19 12:16 | General Surgery Progress Note ---
<Jose Francisco Zhang - Last Filed: 12/19/17 13:22> Date of Encounter: 12/19/17 Time of Encounter: 10:30 - Assessment and Plan (1) Small bowel obstruction Current Visit: Yes Status: Acute Readmitted 12/14/17 for recurrent sx of SBO (bloating, nausea, vomiting 4-5x a day). CT on readmit was positive for SBO with AF levels, but no transition point. Prior admission for same problem with ex-celiotomy with adhesion lysis on . Re-explored on 12/15/17 no abnormalities seen to account for SBO. NG/NPO while waiting for bowel function return. NG output 2750mLs 12/18/17; so far 2500mL today KUB 12/18/17 demonstrated proper NG tip placement in gastric fundus Bowel sounds still hypoactive on exam, but non-tender and without distention or tympany. Plan: - cont TPN - change NG to gravity with Mayes bag - NPO for now - closely monitor and measure PO intake; okay for popsicles BID - activity as tolerated - cont IS 10x/hour while awake - monitor and replete electrolytes - serial exams Subjective Patient reports: no new complaints, feels better, pain is less, flatus, bowel movement (x4), afebrile Objective Vital Signs - Last 8 Hours Temp Pulse Resp BP Pulse Ox 12/19/17 11:17 98.2 F 85 16 118/75 99 12/19/17 07:27 98.4 F 88 16 131/90 100 Intake and Output 12/18/17 12/19/17 12/19/17 23:59 07:59 15:59 Intake Total 500 / 500 200 / 200 Output Total 1000 / 1000 1500 / 1500 1000 / 1000 Balance -500 / -500 -1300 / -1300 -1000 / -1000 Intake: IV Fluids 500 / 500 200 / 200 Ofirmev 1,000 mg/100 ml 1,000 100 / 100 100 / 100 mg In 100 ml @ 400 mls/hr IVPB Q6H [facility] Rx#:[id number] Zyvox Premix 600mg/300mL 600 mg 300 / 300 In 300 ml @ 150 mls/hr IVPB Q12HR [facility] Rx#:[id number] Zosyn 3.375 GM In 0.9 % Sodium 100 / 100 100 / 100 Chloride (Mini-Bag +) 100 ML @ 25 mls/hr IVPB Q8H [facility] Rx#: [id number] Output: Gastric Drainage 1000 / 1000 1500 / 1500 1000 / 1000 Left Nare 1000 / 1000 1500 / 1500 1000 / 1000 Other: Meal NPO Stool Size Moderate Large Stool Consistency liquid liquid Stool Color Brown Green # Voids 0 # Bowel Movements 3 0 # Bowel Movement Diapers 1 Weight 62.2 kg Blood Glucose* 176 131 164 Patient Weight 12/19/17 23:59 Weight 62.2 kg VITAL SIGNS: Reviewed. See [facility] GENERAL: alert and comfortable. No acute distress. Answers questions appropriately. HEENT: PER, EOMi, oropharynx pink/moist CV: RRR, no murmurs or extra heart sounds, no JVD noted HOB at about 40deg RESPIRATORY: CTAB without wheezes, rales, or rhonchi ABD: quiet and infequent bowel sounds, soft, non-tender, no guarding, no rigidity/distention INCISION: clean, dry, intact without purulence/bleeding/edema/rubor/calor; superficially open with packing (no purulence or bleeding). DRAINS: GUNNAR site without signs of infection; bulb contains EXTREMITY: grossly normal motor function, no pedal edema, radial pulse 2+ b/l NEUROLOGIC EXAM: AOx3, obeys commands, no speech deficits. PSYCHIATRIC: normal mood and affect SKIN: no gross lesions, rashes, or skin changes - Labs 12/19/17 11:37 12/19/17 03:40 Diabetes panel 12/19/17 Range/Units 03:40 Sodium 147 H (136-145) mEq/L Potassium 3.5 (3.5-5.1) mEq/L Chloride 96 L (98-107) mEq/L Carbon Dioxide > 45 H* (23-29) mEq/L BUN 33 H (8-23) mg/dL Creatinine 0.64 (0.60-1.20) mg/dL Glucose 144 H (70-105) mg/dL Calcium 8.5 L (8.6-10.3) mg/dL Calcium panel 12/19/17 12/19/17 Range/Units 03:40 03:40 Calcium 8.5 L (8.6-10.3) mg/dL Phosphorus 3.9 (2.7-4.5) mg/dL Pituitary panel 12/19/17 Range/Units 03:40 Sodium 147 H (136-145) mEq/L Potassium 3.5 (3.5-5.1) mEq/L Chloride 96 L (98-107) mEq/L Carbon Dioxide > 45 H* (23-29) mEq/L BUN 33 H (8-23) mg/dL Creatinine 0.64 (0.60-1.20) mg/dL Glucose 144 H (70-105) mg/dL Calcium 8.5 L (8.6-10.3) mg/dL Adrenal panel 12/19/17 Range/Units 03:40 Sodium 147 H (136-145) mEq/L Potassium 3.5 (3.5-5.1) mEq/L Chloride 96 L (98-107) mEq/L Carbon Dioxide > 45 H* (23-29) mEq/L BUN 33 H (8-23) mg/dL Creatinine 0.64 (0.60-1.20) mg/dL Glucose 144 H (70-105) mg/dL Calcium 8.5 L (8.6-10.3) mg/dL - VTE Documentation of Mechanical Device: Intermittent pneumatic compression device Consult Discharge Plan - Plan Referrals: Sloane Murphy, [Primary Care Provider] - Edmund Ritchie [Partnered Physician] - 12/31/17 3:30 pm <Clara Ramirez - Last Filed: 12/19/17 13:33> Date of Encounter: 12/19/17 - Assessment and Plan (1) Small bowel obstruction due to adhesions Current Visit: Yes Status: Acute s/p ex lap and lysis of adhesion is passing flatus and having bm's despite having ngt and order for 1 cup ice q shift patient admits she is drinking 6 cups ice water per day ngt to mayes ok popcicle bid wound care daily - dressings changed as wounds very dry abdominal binder for comfort ok dc mayes gi/dvt prophylaxis IS/pulmoary toilet OOB to chair TID/ambulate (2) Leukocytosis Current Visit: Yes Status: Acute resolved on abx - per hospitalist Qualifiers: Leukocytosis type: bandemia Qualified Code(s): D72.825 - Bandemia Subjective Patient reports: no new complaints, feels better, still having pain, pain is less, flatus, bowel movement, afebrile (patient states she has drank 6 cups ice water in last 24 hrs) Objective Vital Signs - Last 8 Hours Temp Pulse Resp BP Pulse Ox 12/19/17 11:17 98.2 F 85 16 118/75 99 12/19/17 07:27 98.4 F 88 16 131/90 100 Intake and Output 12/18/17 12/19/17 12/19/17 23:59 07:59 15:59 Intake Total 500 / 500 200 / 200 Output Total 1000 / 1000 1500 / 1500 1000 / 1000 Balance -500 / -500 -1300 / -1300 -1000 / -1000 Intake: IV Fluids 500 / 500 200 / 200 Ofirmev 1,000 mg/100 ml 1,000 100 / 100 100 / 100 mg In 100 ml @ 400 mls/hr IVPB Q6H [facility] Rx#:[id number] Zyvox Premix 600mg/300mL 600 mg 300 / 300 In 300 ml @ 150 mls/hr IVPB Q12HR [facility] Rx#:[id number] Zosyn 3.375 GM In 0.9 % Sodium 100 / 100 100 / 100 Chloride (Mini-Bag +) 100 ML @ 25 mls/hr IVPB Q8H [facility] Rx#: [id number] Output: Gastric Drainage 1000 / 1000 1500 / 1500 1000 / 1000 Left Nare 1000 / 1000 1500 / 1500 1000 / 1000 Other: Meal NPO Stool Size Moderate Large Stool Consistency liquid liquid Stool Color Brown Green # Voids 0 # Bowel Movements 3 0 # Bowel Movement Diapers 1 Weight 62.2 kg Blood Glucose* 176 131 164 Patient Weight 12/19/17 23:59 Weight 62.2 kg - General physical appearance well developed, well nourished, no distress - Eyes normal ocular movement - ENT normal mucosa, normocephalic - Neck Neck exam: trachea midline - Respiratory normal expansion, clear to auscultation - Cardiovascular Cardiovascular exam: Present: RRR - Abdomen Abdomen: Present: bowel sounds present (faint but present), soft, tender ( minimal tenderness). Absent: distended, guarding, rebound - Incision Incision: Present: clean and dry, open - Integumentary no rash, no growths - Neurologic normal sensation - Musculoskeletal normal posture - Psychiatric oriented to time, memory intact - Labs 12/19/17 11:37 12/19/17 03:40 Short CBC 12/19/17 Range/Units 11:37 WBC 10.1 (4.3-11.1) K/mcL Hgb 8.8 L D (11.5-15.4) g/dL Hct 31.7 L (35.3-44.9) % Plt Count 276 (140-400) K/mcL Neutrophils # 8.3 (1.6-8.9) K/mcL BMP 12/19/17 Range/Units 03:40 Sodium 147 H (136-145) mEq/L Potassium 3.5 (3.5-5.1) mEq/L Chloride 96 L (98-107) mEq/L Carbon Dioxide > 45 H* (23-29) mEq/L BUN 33 H (8-23) mg/dL Creatinine 0.64 (0.60-1.20) mg/dL Glucose 144 H (70-105) mg/dL Calcium 8.5 L (8.6-10.3) mg/dL Vital Signs Temp Pulse Resp BP Pulse Ox 12/19/17 11:17 98.2 F 85 16 118/75 99 12/19/17 07:27 98.4 F 88 16 131/90 100 12/19/17 03:06 98.2 F 120 15 132/83 92 12/18/17 23:08 98.0 F 81 15 121/73 97 12/18/17 19:33 98.2 F 89 16 126/77 97 12/18/17 15:23 97.5 F L 92 16 103/63 96 Intake and Output 12/18/17 12/19/17 12/19/17 23:59 07:59 15:59 Intake Total 500 / 500 200 / 200 Output Total 1000 / 1000 1500 / 1500 1000 / 1000 Balance -500 / -500 -1300 / -1300 -1000 / -1000 Intake: IV Fluids 500 / 500 200 / 200 Ofirmev 1,000 mg/100 ml 1,000 100 / 100 100 / 100 mg In 100 ml @ 400 mls/hr IVPB Q6H [facility] Rx#:[id number] Zyvox Premix 600mg/300mL 600 mg 300 / 300 In 300 ml @ 150 mls/hr IVPB Q12HR [facility] Rx#:[id number] Zosyn 3.375 GM In 0.9 % Sodium 100 / 100 100 / 100 Chloride (Mini-Bag +) 100 ML @ 25 mls/hr IVPB Q8H [facility] Rx#: [id number] Output: Gastric Drainage 1000 / 1000 1500 / 1500 1000 / 1000 Left Nare 1000 / 1000 1500 / 1500 1000 / 1000 Other: Meal NPO Stool Size Moderate Large Stool Consistency liquid liquid Stool Color Brown Green # Voids 0 # Bowel Movements 3 0 # Bowel Movement Diapers 1 Weight 62.2 kg Blood Glucose* 176 131 164 Patient Weight 12/19/17 23:59 Weight 62.2 kg - Attending Attestation I examined this patient and my medical decision-making was reviewed with the Resident Physician. I agree with the documented findings, disposition and treatment plan as described except to the extent set forth below.
[2017-12-19 14:28] LABS: VBG HCO3 43 mEq/L (21-27); VBG PCO2 91 mmHg (41-51); VBG PH 7.29 pH Units (7.32-7.42); VBG PO2 66 mmHg (25-50)
[2017-12-19] MEDS: Levalbuterol Neb 0.63 MG/3 ML IH SCH ×2 (15:39→21:50)
[2017-12-19] MEDS ORDERED: Clinimix E 5%-15% SOLUTION 2,000 ML with MVI, adult with vitamin K 10 ML IVC SCH (17:00)
[2017-12-19 20:21] LABS: ABG Base Excess 27 mEq/L (-2 to 3); ABG HCO3 54 mEq/L (21-27); ABG Oxygen Saturation 97 % (95-98); ABG PCO2 69 mmHg (35-45); ABG PH 7.51 pH Units (7.32-7.45); ABG PO2 84 mmHg (85-104); ABG TCO2 56 mEq/L (20-26); Blood Gas Respiration Rate 14
[2017-12-20] MEDS: *HR* Metoprolol 5 MG/5 ML VIAL IVP SCH ×4 (00:44→18:42)
[2017-12-20] MEDS: Insulin LISPRO 300 UNITS/3 ML VIAL SQ SCH ×6 (00:44→22:01)
[2017-12-20] MEDS: Ketorolac 15 MG/ML VIAL IVP SCH ×4 (00:44→18:42)
[2017-12-20] MEDS: Levalbuterol Neb 0.63 MG/3 ML IH SCH ×4 (03:33→22:04)
[2017-12-20] MEDS: Piperacillin/Tazobactam 3.375 GM in 0.9 % Sodium Chloride Mini Bag 100 ML IVPB SCH ×2 (03:35→16:32)
[2017-12-20] MEDS: Acetaminophen IV 1,000 MG/100 ML INFUS..BTL IVPB SCH ×4 (03:36→21:57)
[2017-12-20 04:21] LABS: Basophils # 0.1 K/mcL (0.0-0.2); Basophils % 0.9 %; Eosinophils # 0.3 K/mcL (0.0-0.6); Eosinophils % 2.3 %; Hematocrit 30.7 % (35.3-44.9); Hemoglobin 9.5 g/dL (11.5-15.4); Immature Granulocytes % 0.4 % (0-4); Lymphocytes # 2.4 K/mcL (0.6-4.6); Lymphocytes % 20.7 %; Mean Corpuscular HGB Conc 30.9 g/dL (31.6-35.5); Mean Corpuscular Hemoglobin 29.4 pg (28.0-33.3); Mean Platelet Volume 10.1 fL (9.4-12.4); Monocytes # 0.6 K/mcL (0.0-1.3); Monocytes % 5.4 %; Platelet Count 265 K/mcL (140-400); Red Blood Count 3.23 M/mcL (3.82-4.97); Segmented Neutrophils % 70.3 %
[2017-12-20 04:39] LABS: Magnesium 1.6 mg/dL (1.6-2.6); Phosphorous 3.6 mg/dL (2.7-4.5)
[2017-12-20 04:49] LABS: Anisocytosis 1+ (Not Present); BUN/Creatinine Ratio 58 (6-26); Blood Urea Nitrogen 36 mg/dL (8-23); Calcium 8.4 mg/dL (8.6-10.3); Carbon Dioxide > 45 mEq/L (23-29); Chloride 91 mEq/L (98-107); Glucose 123 mg/dL (70-105); Hypochromasia Present (Not Present); Microcytosis Present (Not Present); Osmolality,Calculated 306 (280-300); Platelet Estimate Normal (Normal); Potassium 3.4 mEq/L (3.5-5.1); Reactive Lymphocytes Present (Not Present); Sodium 143 mEq/L (136-145); eGFR For African Americans > 60 (> 60); eGFR For Non-African Americans > 60 (> 60)
[2017-12-20 05:33] LABS: ABG Base Excess 25 mEq/L (-2 to 3); ABG HCO3 51 mEq/L (21-27); ABG Oxygen Saturation 97 % (95-98); ABG PCO2 59 mmHg (35-45); ABG PH 7.55 pH Units (7.32-7.45); ABG PO2 82 mmHg (85-104); ABG TCO2 53 mEq/L (20-26)
[2017-12-20] MEDS: *HR* Heparin 5,000 UNIT/ML VIAL SQ SCH ×3 (06:07→22:04)
[2017-12-20] MEDS: *HR* Digoxin 0.5 MG/2 ML AMPUL IVP SCH (10:00)
--- NOTE | 2017-12-20 10:19 | General Surgery Progress Note ---
<Cristobal Morris - Last Filed: 12/20/17 13:37> Date of Encounter: 12/20/17 Time of Encounter: 09:40 - Assessment and Plan (1) Small bowel obstruction Current Visit: Yes Status: Acute Patient denies any abdominal pain. Admitting 2 bowel movements since yesterday. She has normal bowel sounds on exam. Total NG output of 3500 mL yesterday and 400 mL today. Total input of 1104 ml yesterday and 120 ml so far for today with an output of 3800 ml yesterday and 400 ml so far today. Patient has been afebrile overnight. Minor abdominal soreness on exam. - cont TPN - cont NG to gravity with Mayes bag - NPO for now - closely monitor and measure PO intake; okay for popsicles BID - activity as tolerated - monitor and replete electrolytes - serial exams - Up to chair. - Ambulate. Subjective Narrative: Patient denies any abdominal pain. She denies any nausea or vomiting. She attests that she started having bowel movements since yesterday and continues to do so. Denies any melena or hematochezia. Denies any fever overnight. Denies any chest pain or shortness of breath. Objective VITAL SIGNS: Reviewed. See [facility] GENERAL: No apparent distress. HEENT: [Normocephalic, PER, EOMi, oropharynx pink/moist, no JVD noted.] CV: b/l rad pulses 2+, RRR, no murmurs or gallops, no JVD RESPIRATORY: CTAB without wheezes, rales, or rhonchi ABD: soft, minor diffuse tenderness around incision with deep palpation, no rebound/guarding/rigidity, no peritoneal signs. Normal bowel sounds present. INCISION: clean, dry, intact without purulence/bleeding/edema/rubor/calor. Minor signs of serosanguineous drainage on bandages. EXTREMITY: grossly normal motor function, no pedal edema, peripheral pulses 2+ b /l NEUROLOGIC EXAM: AOx3, obeys commands, no speech deficits. PSYCHIATRIC: normal mood and affect SKIN: no gross lesions, rashes, or skin changes Vital Signs - Last 8 Hours Temp Pulse Resp BP Pulse Ox 12/20/17 09:46 28 119/70 96 12/20/17 06:36 97.7 F 78 16 119/70 98 12/20/17 04:16 97.5 F L 79 18 114/69 97 12/20/17 03:35 18 99 Intake and Output 12/19/17 12/20/17 12/20/17 23:59 07:59 15:59 Intake Total 300 / 300 220 / 220 Output Total 300 / 300 400 / 400 Balance 0 / 0 -180 / -180 Intake: IV Fluids 300 / 300 100 / 100 Ofirmev 1,000 mg/100 ml 1,000 100 / 100 mg In 100 ml @ 400 mls/hr IVPB Q6H [facility] Rx#:[id number] Zyvox Premix 600mg/300mL 600 mg 300 / 300 In 300 ml @ 150 mls/hr IVPB Q12HR [facility] Rx#:[id number] Oral 0 / 0 120 / 120 Output: Stool 300 / 300 Gastric Drainage 400 / 400 Other: Stool Size Moderate Small Stool Consistency liquid loose Stool Color Green Green # Voids 0 # Urine Diapers 0 # Bowel Movements 1 1 # Bowel Movement Diapers 1 Weight 61.2 kg Blood Glucose* 166 158 Patient Weight 12/20/17 23:59 Weight 61.2 kg - Labs 12/20/17 04:07 12/20/17 04:07 Diabetes panel 12/20/17 Range/Units 04:07 Sodium 143 (136-145) mEq/L Potassium 3.4 L (3.5-5.1) mEq/L Chloride 91 L (98-107) mEq/L Carbon Dioxide > 45 H* (23-29) mEq/L BUN 36 H (8-23) mg/dL Creatinine 0.62 (0.60-1.20) mg/dL Glucose 123 H (70-105) mg/dL Calcium 8.4 L (8.6-10.3) mg/dL Calcium panel 12/20/17 12/20/17 Range/Units 04:07 04:07 Calcium 8.4 L (8.6-10.3) mg/dL Phosphorus 3.6 (2.7-4.5) mg/dL Pituitary panel 12/20/17 Range/Units 04:07 Sodium 143 (136-145) mEq/L Potassium 3.4 L (3.5-5.1) mEq/L Chloride 91 L (98-107) mEq/L Carbon Dioxide > 45 H* (23-29) mEq/L BUN 36 H (8-23) mg/dL Creatinine 0.62 (0.60-1.20) mg/dL Glucose 123 H (70-105) mg/dL Calcium 8.4 L (8.6-10.3) mg/dL Adrenal panel 12/20/17 Range/Units 04:07 Sodium 143 (136-145) mEq/L Potassium 3.4 L (3.5-5.1) mEq/L Chloride 91 L (98-107) mEq/L Carbon Dioxide > 45 H* (23-29) mEq/L BUN 36 H (8-23) mg/dL Creatinine 0.62 (0.60-1.20) mg/dL Glucose 123 H (70-105) mg/dL Calcium 8.4 L (8.6-10.3) mg/dL - VTE Documentation of Mechanical Device: Intermittent pneumatic compression device Consult Discharge Plan - Plan Referrals: Sloane Murphy DO [Primary Care Provider] - Edmund Ritchie [Partnered Physician] - 12/31/17 3:30 pm <Clara Ramirez - Last Filed: 12/20/17 14:00> Date of Encounter: 12/20/17 - Assessment and Plan (1) Leukocytosis Current Visit: Yes Status: Acute slight increase today, trend is on zosyn Qualifiers: Leukocytosis type: bandemia Qualified Code(s): D72.825 - Bandemia (2) Small bowel obstruction due to adhesions Current Visit: Yes Status: Acute s/p ex lap and lysis of adhesion is passing flatus and having bm's - await better return of bowel function despite having ngt and order for 1 cup ice q shift patient admits she is drinking 6 cups ice water per day ngt to mayes - is water coming into mayes that she is drinking ok popcicle bid wound care daily abdominal binder for comfort gi/dvt prophylaxis IS/pulmoary toilet OOB to chair TID/ambulate Subjective Patient reports: feels better, still having pain, pain is less, flatus, diarrhea , afebrile Narrative: no nausea or emesis, no abdominal distention denies abdominal pain Objective Vital Signs - Last 8 Hours Temp Pulse Resp BP Pulse Ox 12/20/17 10:46 97.6 F 77 16 121/70 95 12/20/17 09:46 28 119/70 96 12/20/17 06:36 97.7 F 78 16 119/70 98 Intake and Output 12/19/17 12/20/17 12/20/17 23:59 07:59 15:59 Intake Total 300 / 300 220 / 220 Output Total 300 / 300 400 / 400 Balance 0 / 0 -180 / -180 Intake: IV Fluids 300 / 300 100 / 100 Ofirmev 1,000 mg/100 ml 1,000 100 / 100 mg In 100 ml @ 400 mls/hr IVPB Q6H [facility] Rx#:[id number] Zyvox Premix 600mg/300mL 600 mg 300 / 300 In 300 ml @ 150 mls/hr IVPB Q12HR [facility] Rx#:[id number] Oral 0 / 0 120 / 120 Output: Stool 300 / 300 Gastric Drainage 400 / 400 Other: Stool Size Moderate Small Large Stool Consistency liquid loose liquid Stool Color Green Green Green # Voids 0 # Urine Diapers 0 # Bowel Movements 1 1 # Bowel Movement Diapers 1 Weight 61.2 kg Blood Glucose* 166 158 175 Patient Weight 12/20/17 23:59 Weight 61.2 kg - General physical appearance well developed, well nourished, no distress - Eyes PERRL, normal ocular movement - ENT normal mucosa, dry mucosa, normocephalic - Neck Neck exam: trachea midline - Respiratory normal expansion, clear to auscultation - Cardiovascular Cardiovascular exam: Present: RRR - Abdomen Abdomen: Present: bowel sounds present (faint), soft, tender (appropriate post op tenderness). Absent: guarding, rebound - Incision Incision: Present: clean and dry, open (50% fibrinous/50% granulation) - Integumentary no growths - Neurologic CN 2-12 grossly intact - Musculoskeletal normal posture - Psychiatric oriented to time, oriented to person, oriented to place, speech is normal, memory intact - Labs 12/20/17 04:07 12/20/17 04:07 Diabetes panel 12/20/17 Range/Units 04:07 Sodium 143 (136-145) mEq/L Potassium 3.4 L (3.5-5.1) mEq/L Chloride 91 L (98-107) mEq/L Carbon Dioxide > 45 H* (23-29) mEq/L BUN 36 H (8-23) mg/dL Creatinine 0.62 (0.60-1.20) mg/dL Glucose 123 H (70-105) mg/dL Calcium 8.4 L (8.6-10.3) mg/dL Calcium panel 12/20/17 12/20/17 Range/Units 04:07 04:07 Calcium 8.4 L (8.6-10.3) mg/dL Phosphorus 3.6 (2.7-4.5) mg/dL Pituitary panel 12/20/17 Range/Units 04:07 Sodium 143 (136-145) mEq/L Potassium 3.4 L (3.5-5.1) mEq/L Chloride 91 L (98-107) mEq/L Carbon Dioxide > 45 H* (23-29) mEq/L BUN 36 H (8-23) mg/dL Creatinine 0.62 (0.60-1.20) mg/dL Glucose 123 H (70-105) mg/dL Calcium 8.4 L (8.6-10.3) mg/dL Adrenal panel 12/20/17 Range/Units 04:07 Sodium 143 (136-145) mEq/L Potassium 3.4 L (3.5-5.1) mEq/L Chloride 91 L (98-107) mEq/L Carbon Dioxide > 45 H* (23-29) mEq/L BUN 36 H (8-23) mg/dL Creatinine 0.62 (0.60-1.20) mg/dL Glucose 123 H (70-105) mg/dL Calcium 8.4 L (8.6-10.3) mg/dL - Attending Attestation I examined this patient and my medical decision-making was reviewed with the Resident Physician. I agree with the documented findings, disposition and treatment plan as described except to the extent set forth below.
--- NOTE | 2017-12-20 10:22 | Internal Med Progress Note ---
Date of Encounter: 12/20/17 Time of Encounter: 10:12 - Assessment and plan (1) Small bowel obstruction Current Visit: Yes Status: Acute Assessment and plan: s/p exploratory celiotomy with lysis of adhesions NG currently and with TPN running Management per Surgery. (2) Respiratory acidosis Current Visit: Yes Status: Acute Assessment and plan: Patient had gradually increasing bicarb daily. A VBG done showed respiratory acidosis with pCO2 91 (she does appear to be a chronic retainer at baseline), and HCO3 was 43. Although she had an NG tube in place, it was imperative to give some bipap at low settings to prevent acute on chronic respiratory failure in his high risk patient. She tolerated well, and a follow-up ABG after 2 horus of BIPAP showed alkalosis with pH 7.51 and pCO2 69, hCO3 56. Anticipate this may take a day to start improving. This is likely from atelectasis and poor inspiratory effort. Clinically looks well today. If any question of her progress will get follow-up CXR or ABG. I discussed with patient importance of I.S. to use 10x per hour. Goal O2 saturation in this patient is 88-92% (3) Leukocytosis Current Visit: Yes Status: Acute Assessment and plan: Treat both resp and abd etiology Continues to improve after surgery CT chest 12/13 reviewed: There was areas of improved multifocal ground-glass infilitrates and no new ulm consolidation. Chest x-ray 12/14 reviewed: patchy airspace opacities concerning for multifocal infiltrates. Likely reactive and or with possible pneumonia/pneumonitis component. On 12/14 WBC was as high as 33k, which was likely stress response, it has gradually came down since then. Yesterday was 10k but today 11.4. Suspect this still is reactive but we are monitoring for any signs/symptoms of infection. She is on Zosyn/Linezolid. Blood cultures on 12/14 have are negative. She was started on empiric antibiotic therapy on admission (12/14) due to leukocytosis in a high risk patient. She has remained afebrile and has no respiratory distress or complaints. Will finish course tomorrow to complete 7 days of therapy and monitor her after therapy Qualifiers: Leukocytosis type: bandemia Qualified Code(s): D72.825 - Bandemia (4) PAF (paroxysmal atrial fibrillation) Current Visit: No Status: Chronic Assessment and plan: Continue Digoxin and metoprolol, rate controlled Not on anticoagulation because history of alveolar hemorrhage. (5) Diabetes mellitus, type 2 Current Visit: No Status: Chronic Assessment and plan: sliding scale insulin. Accuchecks q 4h SSI Acceptable glucose <180. Qualifiers: Diabetes mellitus mcc insulin use: without mcc use Diabetes mellitus complication status: with unspecified complications Qualified Code(s) : E11.8 - Type 2 diabetes mellitus with unspecified complications (6) HTN (hypertension) Current Visit: No Status: Chronic Assessment and plan: Currently BP runs in lower-normal limits. Continue lopressor IV 2.5 mg Q6H Qualifiers: Hypertension type: essential hypertension Qualified Code(s): I10 - Essential (primary) hypertension (7) Chronic respiratory failure Current Visit: Yes Status: Acute Assessment and plan: Aerosol treatment as needed She is back to home O2 levels 2-3L supplemental O2 via NC Continue incentive spirometry Qualifiers: Respiratory failure complication: unspecified whether with hypoxia or hypercapnia Qualified Code(s): J96.10 - Chronic respiratory failure, unspecified whether with hypoxia or hypercapnia (8) Coronary artery disease Current Visit: Yes Status: Acute Assessment and plan: On aspirin for home medication, will resume when able. Qualifiers: Coronary Disease-Associated Artery/Lesion type: unspecified vessel or lesion type [place] vs. transplanted heart: [place] heart Associated angina: angina presence unspecified Qualified Code(s): I25.10 - Atherosclerotic heart disease of [place] coronary artery without angina pectoris (9) (HFpEF) heart failure with preserved ejection fraction Current Visit: No Status: Chronic Assessment and plan: No acute exacerbation, currently appears euvolemic (10) DVT prophylaxis Current Visit: No Status: Acute Assessment and plan: heparin SQ - Time Spent With Patient Total time spent is greater than 50% in coordination of care (as documented) at patient's floor/unit and/or counseling patient: - Subjective Interval history: Patient states abdominal pain continues to improve. She required bipap yesterday night because patient found to have respiratory acidosis with metabolic compensation. She tolerated well about hours, and denies any SOB this morning. - Constitutional Vitals: Temp Pulse Resp BP Pulse Ox 97.7 F 78 28 119/70 96 12/20/17 06:36 12/20/17 06:36 12/20/17 09:46 12/20/17 09:46 12/20/17 09:46 General appearance: Present: A&O X 3 Exam: Gen: AAOx3, NAD, pleasant. NG tube CVS: irregularly irregular rhythm, normal rate Lungs: CTAB, decreased breath sounds at bases Abd; nt/nd excluding surgical region, normal BS, Ext: no edema, no cyanosis Internal Medicine: Result - Labs CBC & Chem 7: 12/20/17 04:07 12/20/17 04:07 Labs: Short CBC 12/19/17 12/20/17 Range/Units 11:37 04:07 WBC 10.1 11.4 H (4.3-11.1) K/mcL Hgb 8.8 L D 9.5 L (11.5-15.4) g/dL Hct 31.7 L 30.7 L (35.3-44.9) % Plt Count 276 265 (140-400) K/mcL Neutrophils # 8.3 8.0 (1.6-8.9) K/mcL BMP 12/20/17 04:07 Sodium 143 Potassium 3.4 L Chloride 91 L Carbon Dioxide > 45 H* BUN 36 H Creatinine 0.62 Glucose 123 H Calcium 8.4 L - ABG Interpretation ABG results: ABG ABG pH 7.55 pH Units (7.32-7.45) H 12/20/17 05:25 ABG pCO2 59 mmHg (35-45) H 12/20/17 05:25 ABG pO2 82 mmHg (85-104) L 12/20/17 05:25 ABG O2 Saturation 97 % (95-98) 12/20/17 05:25 PT/INR, D-dimer PT 13.7 Seconds (9.4-12.1) H 12/14/17 02:49 - VTE Documentation of Mechanical Device: Intermittent pneumatic compression device Consult Discharge Plan - Plan Referrals: Sloane Murphy DO [Primary Care Provider] - Edmund Ritchie [Partnered Physician] - 12/31/17 3:30 pm
[2017-12-20 15:13] LABS: ABG Base Excess 27 mEq/L (-2 to 3); ABG HCO3 53 mEq/L (21-27); ABG Oxygen Saturation 94 % (95-98); ABG PCO2 61 mmHg (35-45); ABG PH 7.55 pH Units (7.32-7.45); ABG PO2 65 mmHg (85-104); ABG TCO2 55 mEq/L (20-26)
[2017-12-20] MEDS ORDERED: 0.9 % Sodium Chloride 500 ML IVC STA (15:36)
[2017-12-20] MEDS ORDERED: Clinimix E 5%-15% SOLUTION 2,000 ML with MVI, adult with vitamin K 10 ML IVC SCH (17:00)
[2017-12-21] MEDS: Insulin LISPRO 300 UNITS/3 ML VIAL SQ SCH ×7 (00:18→23:59)
[2017-12-21] MEDS: Ketorolac 15 MG/ML VIAL IVP SCH ×3 (00:18→14:56)
[2017-12-21] MEDS: *HR* Metoprolol 5 MG/5 ML VIAL IVP SCH ×5 (00:18→20:15)
[2017-12-21] MEDS: Piperacillin/Tazobactam 3.375 GM in 0.9 % Sodium Chloride Mini Bag 100 ML IVPB SCH ×5 (00:19→23:58)
[2017-12-21] MEDS: Levalbuterol Neb 0.63 MG/3 ML IH SCH ×4 (03:36→21:47)
[2017-12-21] MEDS: Acetaminophen IV 1,000 MG/100 ML INFUS..BTL IVPB SCH ×3 (04:43→15:04)
[2017-12-21] MEDS: *HR* Heparin 5,000 UNIT/ML VIAL SQ SCH (05:09)
[2017-12-21 07:48] LABS: Basophils # 0.1 K/mcL (0.0-0.2); Basophils % 0.9 %; Eosinophils # 0.3 K/mcL (0.0-0.6); Eosinophils % 2.7 %; Hematocrit 28.3 % (35.3-44.9); Hemoglobin 8.7 g/dL (11.5-15.4); Immature Granulocytes % 0.3 % (0-4); Lymphocytes # 1.9 K/mcL (0.6-4.6); Lymphocytes % 18.5 %; Mean Corpuscular HGB Conc 30.7 g/dL (31.6-35.5); Mean Corpuscular Hemoglobin 29.7 pg (28.0-33.3); Mean Corpuscular Volume 96.6 fL (83.0-100.0); Mean Platelet Volume 10.5 fL (9.4-12.4); Monocytes # 0.6 K/mcL (0.0-1.3); Monocytes % 5.6 %; Neutrophils # 7.4 K/mcL (1.6-8.9); Platelet Count 266 K/mcL (140-400); Red Blood Count 2.93 M/mcL (3.82-4.97); Red Cell Distribution Width 17.1 % (11.5-14.5)
[2017-12-21 07:50] LABS: BUN/Creatinine Ratio 64 (6-26); Blood Urea Nitrogen 39 mg/dL (8-23); Calcium 8.1 mg/dL (8.6-10.3); Carbon Dioxide > 45 mEq/L (23-29); Chloride 91 mEq/L (98-107); Glucose 150 mg/dL (70-105); Osmolality,Calculated 306 (280-300); Potassium 3.7 mEq/L (3.5-5.1); Sodium 142 mEq/L (136-145); eGFR For African Americans > 60 (> 60); eGFR For Non-African Americans > 60 (> 60)
--- NOTE | 2017-12-21 09:27 | Internal Med Progress Note ---
Date of Encounter: 12/21/17 Time of Encounter: 09:20 - Assessment and plan (1) PAF (paroxysmal atrial fibrillation) Current Visit: No Status: Chronic (2) Diabetes mellitus, type 2 Current Visit: No Status: Chronic Qualifiers: Diabetes mellitus manager terminal insulin use: without manager terminal use Diabetes mellitus complication status: with hyperglycemia Qualified Code(s): E11.65 - Type 2 diabetes mellitus with hyperglycemia (3) (HFpEF) heart failure with preserved ejection fraction Current Visit: No Status: Chronic (4) HTN (hypertension) Current Visit: No Status: Chronic Qualifiers: Hypertension type: essential hypertension Qualified Code(s): I10 - Essential (primary) hypertension (5) Small bowel obstruction Current Visit: Yes Status: Acute (6) DVT prophylaxis Current Visit: No Status: Acute (7) Chronic respiratory failure Current Visit: Yes Status: Acute Qualifiers: Respiratory failure complication: hypoxia and hypercapnia Qualified Code(s) : J96.11 - Chronic respiratory failure with hypoxia; J96.12 - Chronic respiratory failure with hypercapnia (8) Leukocytosis Current Visit: Yes Status: Acute Qualifiers: Leukocytosis type: bandemia Qualified Code(s): D72.825 - Bandemia (9) Coronary artery disease Current Visit: Yes Status: Acute Qualifiers: Coronary Disease-Associated Artery/Lesion type: [place] artery [place] vs. transplanted heart: [place] heart Associated angina: without angina Qualified Code(s): I25.10 - Atherosclerotic heart disease of [place] coronary artery without angina pectoris (10) Respiratory acidosis Current Visit: Yes Status: Resolved - Time Spent With Patient Total time spent is greater than 50% in coordination of care (as documented) at patient's floor/unit and/or counseling patient: - Subjective Interval history: Ms Hebert is currently admitted for acute bowel obstruction s/p laparotomy. She remains moderate to high risk due to potential for worsening clinical status. Ms Hebert does not feel well today. She is diaphoretic and has some back pain. NG has bloody output. No fever or chills. Some bowel movements. - Constitutional Vitals: Temp Pulse Resp BP Pulse Ox 98.9 F 75 18 110/64 100 12/21/17 07:08 12/21/17 07:08 12/21/17 07:08 12/21/17 07:08 12/21/17 07:08 General appearance: Present: mild distress, A&O X 3 - Head Head exam: Present: normocephalic - Eye Eye exam: Present: conjuntiva pink - ENT ENT exam: Present: mucous membranes dry - Respiratory Respiratory exam: Present: decreased breath sounds. Absent: rales, rhonchi, wheezes - Cardiovascular Cardiovascular exam: Present: irregular rhythm, tachycardia - GI/Abdominal GI/Abdominal exam: Present: tenderness - Extremities Exam Extremities exam: Present: warm. Absent: tenderness - Neurological Exam Neurological exam: Present: alert, oriented X3 - Skin Skin exam: Present: dry, warm Internal Medicine: Result - Labs CBC & Chem 7: 12/21/17 16:25 12/21/17 14:32 Labs: Short CBC 12/21/17 Range/Units 04:00 WBC 10.3 (4.3-11.1) K/mcL Hgb 8.7 L (11.5-15.4) g/dL Hct 28.3 L (35.3-44.9) % Plt Count 266 (140-400) K/mcL Neutrophils # 7.4 (1.6-8.9) K/mcL BMP 12/21/17 04:00 Sodium 142 Potassium 3.7 Chloride 91 L Carbon Dioxide > 45 H* BUN 39 H Creatinine 0.61 Glucose 150 H Calcium 8.1 L - ABG Interpretation ABG results: ABG ABG pH 7.55 pH Units (7.32-7.45) H 12/20/17 15:05 ABG pCO2 61 mmHg (35-45) H 12/20/17 15:05 ABG pO2 65 mmHg (85-104) L 12/20/17 15:05 ABG O2 Saturation 94 % (95-98) L 12/20/17 15:05 PT/INR, D-dimer PT 13.7 Seconds (9.4-12.1) H 12/14/17 02:49 - Impressions Impressions Chest X-Ray 12/20/17 11:37 IMPRESSION: Shallow inspiration with prominence of pulmonary vasculature and bilateral interstitial markings with pneumonia not excluded. D/ / Klever Paiz MD / Klever Paiz MD Interpreting Provider: Klever Paiz MD - VTE Documentation of Mechanical Device: Intermittent pneumatic compression device Consult Discharge Plan - Plan Referrals: Sloane Murphy DO [Primary Care Provider] - Edmund Ritchie [Partnered Physician] - 12/31/17 3:30 pm
[2017-12-21] MEDS: *HR* Digoxin 0.5 MG/2 ML AMPUL IVP SCH (09:44)
[2017-12-21] MEDS: Ondansetron 4 MG/2 ML VIAL IVP PRN ×2 (09:44→15:29)
[2017-12-21] MEDS ORDERED: 0.9 % Sodium Chloride 1,000 ML ONE ×2 (11:30→12:53)
[2017-12-21] MEDS: *HR* Promethazine 25 MG/ML VIAL IVP PRN ×2 (11:38→17:26)
[2017-12-21] MEDS: 0.9 % Sodium Chloride 1,000 ML IVC ONE (11:56)
[2017-12-21] MEDS ORDERED: Pantoprazole 40 MG VIAL IVP ONE (12:54)
[2017-12-21 13:43] LABS: Basophils # 0.1 K/mcL (0.0-0.2); Basophils % 0.5 %; Eosinophils # 0.2 K/mcL (0.0-0.6); Eosinophils % 1.5 %; Hematocrit 19.4 % (35.3-44.9); Immature Granulocytes % 0.7 % (0-4); Lymphocytes # 2.2 K/mcL (0.6-4.6); Lymphocytes % 15.7 %; Mean Corpuscular HGB Conc 30.4 g/dL (31.6-35.5); Mean Corpuscular Hemoglobin 29.8 pg (28.0-33.3); Mean Platelet Volume 10.4 fL (9.4-12.4); Monocytes # 0.8 K/mcL (0.0-1.3); Monocytes % 5.6 %; Neutrophils # 10.7 K/mcL (1.6-8.9); Platelet Count 259 K/mcL (140-400); Red Blood Count 1.98 M/mcL (3.82-4.97)
[2017-12-21] MEDS ORDERED: 0.9 % Sodium Chloride 1,000 ML IVC ONE (13:55)
--- NOTE | 2017-12-21 13:59 | General Surgery Progress Note ---
<Mirna Kerr - Last Filed: 12/21/17 14:07> Date of Encounter: 12/21/17 Time of Encounter: 13:00 - Assessment and Plan (1) Small bowel obstruction Current Visit: Yes Status: Acute POD #6 Exploratory celiotomy with lysis of adhesion with Dr. Chauhan NPO NG tube placed back to LIWS due to significant nausea/abdominal pain Continue TPN for nutritional support IV antibiotics- Zosyn Supportive care and pain control Consider GI consult for prolonged ileus of unknown cause PPI therapy- added BID for blood via NG tube Wound care daily (2) Upper GI bleed Current Visit: Yes Status: Acute Continue NG tube to LIWS PPI therapy BID Carafate slurry via NG tube QID Transfuse PRBC per critical care team Monitor Hgb/Hct Dr. Chauhan to assess for intervention (3) Anemia Current Visit: Yes Status: Acute Hgb- 9.5>8.7>5.9 Transfuse PRBC per critical care team Monitor Hgb/Hct Qualifiers: Anemia type: unspecified type Qualified Code(s): D64.9 - Anemia, unspecified (4) Atrial fibrillation/flutter Current Visit: Yes Status: Acute HR- 80's Management per medicine team Subjective Patient reports: still having pain (admits that her pain is more intense today) , voiding w/o difficulty, flatus, diarrhea (Admits to 2 loose stools today), nausea (Patient NG is to gravity and she complains of nausea despite being medicated with phenergan and zofran), afebrile, other (Patient states that she does not feel well today. She has been hypotensive and is receiving her second liter bolus of fluid.) Objective Vital Signs - Last 8 Hours Temp Pulse Resp BP Pulse Ox 12/21/17 11:30 97.1 F L 91 18 84/54 97 12/21/17 10:09 18 98 12/21/17 07:08 98.9 F 75 18 110/64 100 Intake and Output 12/20/17 12/21/17 12/21/17 23:59 07:59 15:59 Intake Total 400 / 400 500 / 500 60 / 60 Output Total 1400 / 1400 0 / 0 Balance -1000 / -1000 500 / 500 60 / 60 Intake: IV Fluids 300 / 300 500 / 500 Ofirmev 1,000 mg/100 ml 1,000 200 / 200 100 / 100 mg In 100 ml @ 400 mls/hr IVPB Q6H [facility] Rx#:[id number] Zyvox Premix 600mg/300mL 600 mg 300 / 300 In 300 ml @ 150 mls/hr IVPB Q12HR [facility] Rx#:[id number] Zosyn 3.375 GM In 0.9 % Sodium 100 / 100 100 / 100 Chloride (Mini-Bag +) 100 ML @ 25 mls/hr IVPB Q8H [facility] Rx#: [id number] Oral 100 / 100 0 / 0 60 / 60 Output: Urine 0 / 0 0 / 0 Gastric Drainage 1400 / 1400 Left Nare 800 / 800 Other: Meal Breakfast Percent of Meal Consumed 0% Stool Size Copious Moderate Moderate Stool Consistency liquid liquid Stool Characteristics Mucoid Stool Color Green Green Green # Urine Diapers 1 # Bowel Movements 1 1 # Bowel Movement Diapers 1 Weight 59.6 kg Blood Glucose* 154 129 166 Patient Weight 12/21/17 23:59 Weight 59.6 kg - General physical appearance chronically ill - Eyes normal ocular movement - ENT dry mucosa, atraumatic, normocephalic - Neck Neck exam: trachea midline - Respiratory normal respiratory effort, clear to auscultation, other (diminished bibasilar bases) - Cardiovascular Cardiovascular exam: Present: irregular rhythm (HR-80's) - Abdomen Abdomen: Present: soft, tender (moderate, generalized tenderness), wound (NG tube to gravity with dark gastric content noted (600ml total)) - Incision Incision: Present: serosanguinous (small amount of serousang. drainage noted on packing) - Neurologic CN 2-12 grossly intact - Psychiatric oriented to time, oriented to person, oriented to place, speech is normal, memory intact - Labs 12/21/17 13:20 12/21/17 13:20 Diabetes panel 12/21/17 Range/Units 04:00 Sodium 142 (136-145) mEq/L Potassium 3.7 (3.5-5.1) mEq/L Chloride 91 L (98-107) mEq/L Carbon Dioxide > 45 H* (23-29) mEq/L BUN 39 H (8-23) mg/dL Creatinine 0.61 (0.60-1.20) mg/dL Glucose 150 H (70-105) mg/dL Calcium 8.1 L (8.6-10.3) mg/dL Calcium panel 12/21/17 Range/Units 04:00 Calcium 8.1 L (8.6-10.3) mg/dL Pituitary panel 12/21/17 Range/Units 04:00 Sodium 142 (136-145) mEq/L Potassium 3.7 (3.5-5.1) mEq/L Chloride 91 L (98-107) mEq/L Carbon Dioxide > 45 H* (23-29) mEq/L BUN 39 H (8-23) mg/dL Creatinine 0.61 (0.60-1.20) mg/dL Glucose 150 H (70-105) mg/dL Calcium 8.1 L (8.6-10.3) mg/dL Adrenal panel 12/21/17 Range/Units 04:00 Sodium 142 (136-145) mEq/L Potassium 3.7 (3.5-5.1) mEq/L Chloride 91 L (98-107) mEq/L Carbon Dioxide > 45 H* (23-29) mEq/L BUN 39 H (8-23) mg/dL Creatinine 0.61 (0.60-1.20) mg/dL Glucose 150 H (70-105) mg/dL Calcium 8.1 L (8.6-10.3) mg/dL - VTE Documentation of Mechanical Device: Intermittent pneumatic compression device Consult Discharge Plan - Plan Referrals: Sloane Murphy DO [Primary Care Provider] - Edmund Ritchie [Partnered Physician] - 12/31/17 3:30 pm - Attending Attestation For this encounter, I have reviewed the COMMERCIAL SALES CONSULTANT or PA documentation, treatment plan, and medical decision making; and I have had face to face time with this patient. <Nadeem Chauhan - Last Filed: 12/21/17 19:03> Date of Encounter: 12/21/17 Objective Vital Signs - Last 8 Hours Temp Pulse Resp BP Pulse Ox 12/21/17 17:51 99 16 101/63 97 12/21/17 17:00 97.6 F 88 14 121/74 97 12/21/17 16:33 97.6 F 86 30 109/62 94 12/21/17 16:00 80 16 106/65 97 12/21/17 15:08 96.7 F L 91 14 104/53 92 12/21/17 15:00 93 14 104/53 100 12/21/17 14:30 97.4 F L 80 33 89/48 97 12/21/17 13:52 65 29 58/34 97 12/21/17 11:30 97.1 F L 91 18 84/54 97 Intake and Output 12/21/17 12/21/17 12/21/17 07:59 15:59 23:59 Intake Total 500 / 500 560 / 560 700 / 700 Output Total 0 / 0 500 / 500 Balance 500 / 500 560 / 560 200 / 200 Intake: IV Fluids 500 / 500 200 / 200 100 / 100 Ofirmev 1,000 mg/100 ml 1,000 100 / 100 100 / 100 100 / 100 mg In 100 ml @ 400 mls/hr IVPB Q6H [facility] Rx#:[id number] Zyvox Premix 600mg/300mL 600 mg 300 / 300 In 300 ml @ 150 mls/hr IVPB Q12HR [facility] Rx#:[id number] Zosyn 3.375 GM In 0.9 % Sodium 100 / 100 100 / 100 Chloride (Mini-Bag +) 100 ML @ 25 mls/hr IVPB Q8H [facility] Rx#: [id number] Oral 0 / 0 60 / 60 Blood Product 300 / 300 600 / 600 Rbcs Leuko Poor As-1 Unit 0 / 0 300 / 300 [id number] Rbcs Leuko Poor As-1 Unit 300 / 300 [id number] Rbcs Leuko Poor As-3 2nd Unit 0 / 0 [id number] Rbcs Leuko Poor As-3 Ph Unit 300 / 300 [id number] Output: Urine 0 / 0 Gastric Tube Lavage Amount 60 / 60 Left Nare 60 / 60 Catheter 240 / 240 Gastric Drainage 200 / 200 Other: Meal Breakfast Percent of Meal Consumed 0% Stool Size Moderate Moderate Stool Consistency liquid liquid Stool Color Green Green # Bowel Movements 1 # Bowel Movement Diapers 1 Weight 59.6 kg Blood Glucose* 129 158 122 Patient Weight 12/21/17 23:59 Weight 59.6 kg - Labs 12/21/17 16:25 12/21/17 14:32 Diabetes panel 12/21/17 12/21/17 12/21/17 Range/Units 04:00 13:20 14:32 Sodium 142 140 140 (136-145) mEq/L Potassium 3.7 3.9 4.0 (3.5-5.1) mEq/L Chloride 91 L 93 L 93 L (98-107) mEq/L Carbon Dioxide > 45 H* > 45 H* > 45 H* (23-29) mEq/L BUN 39 H 54 H 54 H (8-23) mg/dL Creatinine 0.61 0.72 0.75 (0.60-1.20) mg/dL Glucose 150 H 199 H 191 H (70-105) mg/dL Calcium 8.1 L 7.5 L 7.5 L (8.6-10.3) mg/dL AST 15 17 (13-39) Units/L ALT 6 L 7 (7-52) Units/L Alkaline Phosphatase 46 49 (34-104) Units/L Albumin 1.7 L 1.9 L (3.5-5.7) g/dL Calcium panel 12/21/17 12/21/17 12/21/17 Range/Units 04:00 13:20 14:32 Calcium 8.1 L 7.5 L 7.5 L (8.6-10.3) mg/dL Phosphorus 3.4 (2.7-4.5) mg/dL Albumin 1.7 L 1.9 L (3.5-5.7) g/dL Pituitary panel 12/21/17 12/21/17 12/21/17 Range/Units 04:00 13:20 14:32 Sodium 142 140 140 (136-145) mEq/L Potassium 3.7 3.9 4.0 (3.5-5.1) mEq/L Chloride 91 L 93 L 93 L (98-107) mEq/L Carbon Dioxide > 45 H* > 45 H* > 45 H* (23-29) mEq/L BUN 39 H 54 H 54 H (8-23) mg/dL Creatinine 0.61 0.72 0.75 (0.60-1.20) mg/dL Glucose 150 H 199 H 191 H (70-105) mg/dL Calcium 8.1 L 7.5 L 7.5 L (8.6-10.3) mg/dL Adrenal panel 12/21/17 12/21/17 12/21/17 Range/Units 04:00 13:20 14:32 Sodium 142 140 140 (136-145) mEq/L Potassium 3.7 3.9 4.0 (3.5-5.1) mEq/L Chloride 91 L 93 L 93 L (98-107) mEq/L Carbon Dioxide > 45 H* > 45 H* > 45 H* (23-29) mEq/L BUN 39 H 54 H 54 H (8-23) mg/dL Creatinine 0.61 0.72 0.75 (0.60-1.20) mg/dL Glucose 150 H 199 H 191 H (70-105) mg/dL Calcium 8.1 L 7.5 L 7.5 L (8.6-10.3) mg/dL Total Bilirubin 0.5 0.6 (0.3-1.0) mg/dL AST 15 17 (13-39) Units/L ALT 6 L 7 (7-52) Units/L Alkaline Phosphatase 46 49 (34-104) Units/L Albumin 1.7 L 1.9 L (3.5-5.7) g/dL - Attending Attestation Reviewed the above and agree with the above assessment and plan. Agree with transfer to ICU. IVF and PRBC. Patient may require further support since she may not have reached equilibrium. Plan for EGD today (CT scan shows evidence of clot in stomach with evidence of active gastric GI bleed along greater curvature.
[2017-12-21 14:01] LABS: Alanine Aminotransferase 6 Units/L (7-52); Albumin 1.7 g/dL (3.5-5.7); Albumin/Globulin Ratio 0.7 (1.1-2.2); Alkaline Phosphatase 46 Units/L (34-104); Aspartate Amino Transferase 15 Units/L (13-39); BUN/Creatinine Ratio 75 (6-26); Bilirubin,Total 0.5 mg/dL (0.3-1.0); Blood Urea Nitrogen 54 mg/dL (8-23); Calcium 7.5 mg/dL (8.6-10.3); Carbon Dioxide > 45 mEq/L (23-29); Chloride 93 mEq/L (98-107); Globulin 2.5 g/dL (2.4-3.5); Glucose 199 mg/dL (70-105); Osmolality,Calculated 310 (280-300); Potassium 3.9 mEq/L (3.5-5.1); Sodium 140 mEq/L (136-145); Total Protein 4.2 g/dL (6.4-8.9); eGFR For African Americans > 60 (> 60); eGFR For Non-African Americans > 60 (> 60)
[2017-12-21 14:02] LABS: Hemoglobin 5.9 g/dL (11.5-15.4)
[2017-12-21 14:04] LABS: Hypochromasia Present (Not Present); Platelet Estimate Normal (Normal)
[2017-12-21 14:05] LABS: Anisocytosis 1+ (Not Present); Macrocytosis Present (Not Present)
[2017-12-21] MEDS ORDERED: 0.9 % Sodium Chloride 2,000 ML ONE (14:12)
[2017-12-21] MEDS ORDERED: Potassium Phosphate 44 MEQ in 0.9 % Sodium Chloride 250 ML IVPB PRN (14:31)
[2017-12-21] MEDS ORDERED: Potassium Chloride 40 MEQ/200 ML BAG IVPB PRN ×2 (14:31→18:00)
[2017-12-21 15:04] LABS: Basophils # 0.1 K/mcL (0.0-0.2); Basophils % 0.4 %; Eosinophils # 0.2 K/mcL (0.0-0.6); Eosinophils % 1.3 %; Hematocrit 20.2 % (35.3-44.9); Immature Granulocytes % 0.9 % (0-4); Lymphocytes # 2.7 K/mcL (0.6-4.6); Lymphocytes % 14.5 %; Mean Corpuscular HGB Conc 29.7 g/dL (31.6-35.5); Mean Corpuscular Hemoglobin 29.1 pg (28.0-33.3); Mean Corpuscular Volume 98.1 fL (83.0-100.0); Mean Platelet Volume 10.5 fL (9.4-12.4); Monocytes % 5.2 %; Neutrophils # 14.3 K/mcL (1.6-8.9); Platelet Count 347 K/mcL (140-400); Red Blood Count 2.06 M/mcL (3.82-4.97); Red Cell Distribution Width 17.2 % (11.5-14.5); Segmented Neutrophils % 77.7 %
[2017-12-21 15:07] LABS: INR 1.2; Prothrombin Time 12.8 Seconds (9.4-12.1)
[2017-12-21 15:10] LABS: Activated Partial Thrombo Time 34.2 Seconds (26.0-36.0)
[2017-12-21] MEDS ORDERED: Acetaminophen IV 1,000 MG/100 ML INFUS..BTL IVPB SCH ×2 (15:15→21:15)
[2017-12-21 15:22] LABS: Alanine Aminotransferase 7 Units/L (7-52); Albumin 1.9 g/dL (3.5-5.7); Albumin/Globulin Ratio 0.7 (1.1-2.2); Alkaline Phosphatase 49 Units/L (34-104); Aspartate Amino Transferase 17 Units/L (13-39); BUN/Creatinine Ratio 72 (6-26); Bilirubin,Total 0.6 mg/dL (0.3-1.0); Blood Urea Nitrogen 54 mg/dL (8-23); Calcium 7.5 mg/dL (8.6-10.3); Carbon Dioxide > 45 mEq/L (23-29); Chloride 93 mEq/L (98-107); Globulin 2.7 g/dL (2.4-3.5); Glucose 191 mg/dL (70-105); Magnesium 1.6 mg/dL (1.6-2.6); Osmolality,Calculated 310 (280-300); Phosphorous 3.4 mg/dL (2.7-4.5); Sodium 140 mEq/L (136-145); Total Protein 4.6 g/dL (6.4-8.9); eGFR For African Americans > 60 (> 60); eGFR For Non-African Americans > 60 (> 60)
[2017-12-21] MEDS ORDERED: Isovue-370 500 ML INFUS..BTL IV ONE (15:37)
[2017-12-21] MEDS ORDERED: Norepinephrine 4 MG in D5% in Water 250 ML IVC SCH (15:45)
--- NOTE | 2017-12-21 15:50 | Pulmonology Consult Note ---
<Souleymane Red - Last Filed: 12/21/17 18:01> Date of Encounter: 12/21/17 Time of Encounter: 15:40 Assessment and Plan (1) Upper GI bleed Current Visit: Yes Status: Acute Patient did have surgery done on 12/[address] Chauhan where he did exploratory lysis of adhesions as well as celiac to me. This was successfully done to where they did remove one adhesion did not find a small bowel obstruction patient has still been nothing by mouth as well as with an NG tube placed. Today patient seemed to be more pale starting to be diaphoretic and tachycardic so they suctioned from the NG tube and noticed bright red blood coming from and they removed approximately 200 mL. That time CBC was ordered which showed hemoglobin of 5.9. Patient was then transferred to the ICU for further management. Prior to blood being given CBC showed hemoglobin of 6.0. Consulted Dr. Chauhan the general surgeon who recommended that we stabilize the patient and consider endoscopy. We did do bedside FAST exam via ultrasound which did seem to show positive fluid in the right upper quadrant. Due to this we ordered a stat abdomen and pelvis CT. Results are still pending. Cordis catheter with a triple lumen central venous catheter was successfully placed in the right groin please see procedure note for details. Patient was hypotensive in the 80s over 40 when he first arrived so patient did have a PICC line and norepi was started this is controlling her blood pressure well. Patient is still on norepinephrine CTA of the abdomen and pelvis was done due to FAST exam being positive this did show a active bleed in the greater curvature of the stomach. This was called to us from the radiologist. At this time I then spoke with the surgeon Dr. Chauhan and told him and he said he would come see the patient shortly and most likely do endoscopy. 4 units packed red blood cells transfused Continue to monitor NG tube for bright red blood. Protonix Carafate Monitor hemoglobin tonight and then daily hemoglobins. (2) Small bowel obstruction due to adhesions Current Visit: Yes Status: Acute Status post exploratory celiotomy with lysis of adhesions postop day #[address] Chauhan General surgery is following. Patient still has NG tube Continue TPN for nutritional support Last day of Zosyn antibiotics as well as linezolid. Appreciate general surgery's recommendations. (3) Leukocytosis Current Visit: Yes Status: Acute Original leukocytosis had a white count of 33.3. The did normalize to 10.3 prior to coming to the ICU. After returning repeat was 18.4 this most likely stress reaction due to the anemia. Continue daily CBCs. Cultures were negative patient did finish a day course of linezolid and Zosyn. Qualifiers: Leukocytosis type: bandemia Qualified Code(s): D72.825 - Bandemia (4) Respiratory acidosis Current Visit: Yes Status: Acute Patient does have history of COPD does see pulmonology regularly VBG was done on the floor which did show respiratory acidosis with a PCO2 of 91 she does seem to be a chronic retainer at baseline. Patient's bicarbonate was 43. Patient does use BiPAP we needed and does help with patient's ABG as it does partially normalize. Goal oxygen saturation for patient is 88-92%. Continue CPAP as needed for her story distress if patient does desaturate consider intubation. (5) HTN (hypertension) Current Visit: No Status: Chronic Patient does have history of hypertension. Patient was hypotensive when she came here most likely just due to fluid deficit as well as blood product deficit. We will hold all hypertensive medications until patient's blood pressure normalizes. Patient was hypotensive when she got here. He was started on levophed. Qualifiers: Hypertension type: essential hypertension Qualified Code(s): I10 - Essential (primary) hypertension (6) Chronic diastolic heart failure Current Visit: No Status: Chronic Patient does have history of chronic diastolic heart failure. She has a normal EF of 65%. Will be due to initial and how much fluid resuscitation we will give Continue to monitor (7) Coronary artery disease Current Visit: Yes Status: Acute Patient does have history of coronary artery disease we will continue normal medications Qualifiers: Coronary Disease-Associated Artery/Lesion type: unspecified vessel or lesion type [place] vs. transplanted heart: [place] heart Associated angina: angina presence unspecified Qualified Code(s): I25.10 - Atherosclerotic heart disease of [place] coronary artery without angina pectoris (8) Atrial fibrillation/flutter Current Visit: Yes Status: Acute Patient does have history of paroxysmal atrial fibrillation. Continue digoxin and metoprolol, rate controlled Patient is not on anticoagulation because history of alveolar hemorrhage. (9) Anemia Current Visit: Yes Status: Acute Patient did have a acutely anemic event. This most likely due to possible upper GI bleed. See above for treatment and plan. Qualifiers: Anemia type: unspecified type Qualified Code(s): D64.9 - Anemia, unspecified (10) Diabetes mellitus, type 2 Current Visit: No Status: Chronic Sliding scale insulin Accu-Cheks every 4 Acceptable glucose less than 180 Qualifiers: Diabetes mellitus snf insulin use: without snf use Diabetes mellitus complication status: with unspecified complications Qualified Code(s) : E11.8 - Type 2 diabetes mellitus with unspecified complications (11) DVT prophylaxis Current Visit: No Status: Acute Subcutaneous heparin. History of Present Illness Consult date: 12/21/17 Requesting physician: Lloyd [place] Reason for consult: other (Critical care management NICU) Chief complaint: Abdominal pain History of present illness: 67-year-old female presented to the hospital as a transfer from [place] emergency department. She presented there with concerns for small bowel instruction. Patient does have medical history including diabetes, hypertension, chronic kidney disease, pulmonary fibrosis on oxygen, diastolic heart failure, alveolar hemorrhage. She is recently discharged on 12/11 after a stay for small bowel obstruction for which a celiotomy and lysis of adhesions was done by Dr. Chauhan. Patient did need TPN and pneumonia was diagnosed. CT done at [place] did show small bowel distention with multiple air-fluid levels and relatively collapsed colon said just staying developing obstruction in the distal small bowel. IV fluids were given NG tube was placed. Patient otherwise white blood cell count of 30.2 and elevated platelets. Patient was started on Cipro and Flagyl. She is tachycardic also has history of A. fib. Surgery did see her and did an exploration of the entire abdomen to be sure there is no postoperative adhesions. The did run the: As well as small bowel and did find where there was an adhesion which was removed. There is no signs of obstruction at they can tell there is no signs of ischemia. Patient was then closed is still being followed by surgery. A jain continued on TPN. Patient has a gradually increasing bicarbonate daily she does have history of COPD most likely a chronic CO2 retainer. Patient was placed on antibiotics today was the completion of an eight-day therapy that included Zosyn and linezolid. Patient began to be very pale morning hemoglobin was 8.6 then it quickly decreased to 5.3 and patient's nurse noticed that she was having bright red blood from her NG tube. At that time the ICU team was consult it and it was recommended the patient be transferred to the ICU Past Med Surg Social Fam HX - Past Medical History Medical history: atrial fibrillation, CHF, COPD, coronary artery disease, diabetes, hyperlipidemia, hypertension, myocardial infarction, other Psychiatric history: no psych history - Past Surgical History Surgical History: hysterectomy, orthopedic, other, pacemaker/AICD, other - Social History Smoking Status: Never smoker Smokeless Tobacco Status: No Alcohol use: none Drug use: none - Family History Father Living Status: Hx Family Cardiac Disorders: No Hx Family Respiratory Disorders: Yes (copd) Hx Family Cancer: No Hx Family GI Disorders: No Hx Family Genitourinary Disorders: No Hx Family Endocrine Disorder: No Hx Family Musculoskeletal Disorders: No Hx Family Neuromuscular Disorders: No Hx Family Neurologic Disorders: No Hx Family HEENT Disorders: No Hx Family Autoimmune Disorders: No Hx Family Reproductive Disorders: No Hx Family Psychosocial Disorders: No Hx Family Medical Disorders: No Mother Living Status: Hx Family Cardiac Disorders: Yes Hx Family Endocrine Disorder: Yes Medications and Allergies Aspirin 81 mg PO DAILY 06/05/16 [History] Multivitamin [Multivitamins] 1 cap PO DAILY 06/05/16 [History] Calcium Carbonate [Calcium] 1,000 mg PO BID 04/28/17 [History] Ferrous Sulfate 325 mg PO DAILY 04/28/17 [History] Alosetron HCl 0.5 mg PO BID 08/19/17 [History] Baclofen [Lioresal] 10 mg PO TID PRN 08/19/17 [History] Cholecalciferol (D-3) [Vitamin D] 2,000 unit PO DAILY #30 tablet 08/25/17 [Rx] Albuterol Sulfate [Ventolin Hfa] 2 puff IH Q6H PRN 09/11/17 [History] Beclomethasone Diprop 80mcg [QVAR 80 mcg] 1 puff IH BID 09/11/17 [History] BuPROPion XL (24 HR) [Wellbutrin Xl] 150 mg PO DAILY 09/11/17 [History] Colestipol HCl [Colestid] 2 gm PO DAILY 10/29/17 [History] Cyanocobalamin (Vitamin B-12) [Vitamin B12] 1,000 mcg PO DAILY 10/29/17 [History ] Hyoscyamine SL [Levsin Sl] 0.125 mg SL Q4H PRN 10/29/17 [History] Meclizine [Antivert] 25 mg PO DAILY PRN 10/29/17 [History] Oxygen 2 l .ROUTE AD 10/29/17 [History] Albuterol Neb [Proventil Neb] 2.5 mg IH Q2H PRN inhsol 11/07/17 [Rx] Nitroglycerin 0.4 mg SL Q5MIN PRN tab.subl 11/07/17 [Rx] Lipase/Protease/Amylase [Micky Ramos 6,000 Units Capsule] 2 each PO ACHS #240 capsule.dr 11/17/17 [Rx] Diltiazem CD (24hr) [Cardizem CD] 120 mg PO DAILY 11/27/17 [History] Magnesium Oxide [Mag-Ox] 400 mg PO TID 11/27/17 [History] Amoxicillin/Clavulanate [Augmentin] 875 mg PO BIDWM #8 tablet 12/11/17 [Rx] Doxycycline 100 mg PO 0800,1900 #8 capsule 12/11/17 [Rx] Furosemide [Lasix] 20 mg PO DAILY 5 Days tablet 12/11/17 [Rx] GuaiFENesin Liq [Robitussin Liq] 200 mg PO Q6HR PRN udc 12/11/17 [Rx] Ipratropium/Albuterol Neb [Duoneb] 3 ml IH [id number] PRN inhsol 12/11/17 [Rx] Lactobacillus [Culturelle] 1 each PO BID cap.sprink 12/11/17 [Rx] Phos-NaK [Neutra-Phos] 1 each PO BID powd.pack 12/11/17 [Rx] 3 Allergy/AdvReac Type Severity Reaction Status Date / Time peanut Allergy Hives Verified 11/26/17 10:44 zinc Allergy Hives Verified 11/26/17 10:44 Sulfa (Sulfonamide AdvReac Mild constipatio Verified 11/26/17 10:44 Antibiotics) n ROS unobtainable: due to mental status All Systems: The remainder of the systems were reviewed and are negative Physical Examination Vital Signs: Vital Signs, Last 4 Hours Temp Pulse Resp BP Pulse Ox 12/21/17 15:08 96.7 F L 91 14 104/53 92 12/21/17 15:00 93 14 104/53 100 12/21/17 14:30 97.4 F L 80 33 89/48 97 12/21/17 13:52 65 29 58/34 97 General appearance: no acute distress, alert, lethargic Eyes: nonicteric ENT: oropharynx moist Neck: supple Effort: normal Auscultation: bilateral: clear Cardiovascular: regular rate and rhythm Gastrointestinal: normoactive bowel sounds, non-distended Integumentary: normal Extremities: no cyanosis, no edema, no clubbing Musculoskeletal: no deformities, ROM normal normal mental status, non-focal exam, pupils equal and round, motor strength normal and symmetric Results - Laboratory Findings CBC and BMP: 12/21/17 16:25 12/21/17 14:32 ABG ABG pH 7.55 pH Units (7.32-7.45) H 12/20/17 15:05 ABG pCO2 61 mmHg (35-45) H 12/20/17 15:05 ABG pO2 65 mmHg (85-104) L 12/20/17 15:05 ABG O2 Saturation 94 % (95-98) L 12/20/17 15:05 PT/INR, D-dimer PT 12.8 Seconds (9.4-12.1) H 12/21/17 14:32 Abnormal lab findings: Abnormal lab results WBC 18.4 K/mcL (4.3-11.1) H 12/21/17 14:32 RBC 2.06 M/mcL (3.82-4.97) L 12/21/17 14:32 Hgb 6.0 g/dL (11.5-15.4) L* 12/21/17 14:32 Hct 20.2 % (35.3-44.9) L 12/21/17 14:32 MCHC 29.7 g/dL (31.6-35.5) L 12/21/17 14:32 RDW 17.2 % (11.5-14.5) H 12/21/17 14:32 Neutrophils # 14.3 K/mcL (1.6-8.9) H 12/21/17 14:32 Reactive Lymphocytes Present (Not Present) A 12/20/17 04:07 Toxic Granulation Present (Not Present) A 12/16/17 07:05 Hypochromasia Present (Not Present) A 12/21/17 13:20 Anisocytosis 1+ (Not Present) A 12/21/17 13:20 Microcytosis Present (Not Present) A 12/20/17 04:07 Macrocytosis Present (Not Present) A 12/21/17 13:20 PT 12.8 Seconds (9.4-12.1) H 12/21/17 14:32 ABG pH 7.55 pH Units (7.32-7.45) H 12/20/17 15:05 ABG pCO2 61 mmHg (35-45) H 12/20/17 15:05 ABG pO2 65 mmHg (85-104) L 12/20/17 15:05 ABG HCO3 53 mEq/L (21-27) H 12/20/17 15:05 ABG Total CO2 55 mEq/L (20-26) H 12/20/17 15:05 ABG O2 Saturation 94 % (95-98) L 12/20/17 15:05 ABG Base Excess 27 mEq/L (-2 to 3) H 12/20/17 15:05 VBG pH 7.29 pH Units (7.32-7.42) L 12/19/17 14:23 VBG pCO2 91 mmHg (41-51) H* 12/19/17 14:23 VBG pO2 66 mmHg (25-50) H 12/19/17 14:23 VBG HCO3 43 mEq/L (21-27) H 12/19/17 14:23 Chloride 93 mEq/L (98-107) L 12/21/17 14:32 Carbon Dioxide > 45 mEq/L (23-29) H* 12/21/17 14:32 BUN 54 mg/dL (8-23) H 12/21/17 14:32 BUN/Creatinine Ratio 72 (6-26) H 12/21/17 14:32 Glucose 191 mg/dL (70-105) H 12/21/17 14:32 POC Glucose 178 mg/dL (70-99) H 12/21/17 08:17 Calculated Osmolality 310 (280-300) H 12/21/17 14:32 Calcium 7.5 mg/dL (8.6-10.3) L 12/21/17 14:32 Venous Ioniz Calcium 1.00 mmol/L (1.15-1.35) L 12/21/17 14:48 B-Natriuretic Peptide 319 pg/mL (Less than 100) H 12/15/17 03:50 Serum Total Protein 4.6 g/dL (6.4-8.9) L 12/21/17 14:32 Albumin 1.9 g/dL (3.5-5.7) L 12/21/17 14:32 Albumin/Globulin Ratio 0.7 (1.1-2.2) L 12/21/17 14:32 Prealbumin 9.4 mg/dL (17.0-34.0) L 12/14/17 13:58 - Clinical Findings Intake & Output: Intake & Output 12/20/17 12/21/17 12/21/17 23:59 07:59 15:59 Intake Total 400 / 400 500 / 500 560 / 560 Output Total 1400 / 1400 0 / 0 Balance -1000 / -1000 500 / 500 560 / 560 Weight 59.6 kg Consult Discharge Plan - Plan Referrals: Sloane Murphy DO [Primary Care Provider] - Edmund Ritchie [Partnered Physician] - 12/31/17 3:30 pm <Serafin Romero S - Last Filed: 12/21/17 21:23> Date of Encounter: 12/21/17 All Systems: The remainder of the systems were reviewed and are negative Physical Examination Vital Signs: Vital Signs, Last 4 Hours Temp Pulse Resp BP Pulse Ox 12/21/17 20:45 121 18 108/65 93 12/21/17 20:31 98 F 12/21/17 19:30 130 20 98/69 94 12/21/17 17:51 99 16 101/63 97 Results - Laboratory Findings CBC and BMP: 12/21/17 19:54 12/21/17 14:32 ABG ABG pH 7.46 pH Units (7.32-7.45) H 12/21/17 16:34 ABG pCO2 68 mmHg (35-45) H 12/21/17 16:34 ABG pO2 59 mmHg (85-104) L 12/21/17 16:34 ABG O2 Saturation 90 % (95-98) L 12/21/17 16:34 PT/INR, D-dimer PT 12.8 Seconds (9.4-12.1) H 12/21/17 14:32 Abnormal lab findings: Abnormal lab results WBC 18.4 K/mcL (4.3-11.1) H 12/21/17 14:32 RBC 2.06 M/mcL (3.82-4.97) L 12/21/17 14:32 Hgb 10.0 g/dL (11.5-15.4) L D 12/21/17 19:54 Hct 30.0 % (35.3-44.9) L 12/21/17 19:54 MCHC 29.7 g/dL (31.6-35.5) L 12/21/17 14:32 RDW 17.2 % (11.5-14.5) H 12/21/17 14:32 Neutrophils # 14.3 K/mcL (1.6-8.9) H 12/21/17 14:32 Reactive Lymphocytes Present (Not Present) A 12/20/17 04:07 Toxic Granulation Present (Not Present) A 12/16/17 07:05 Hypochromasia Present (Not Present) A 12/21/17 13:20 Anisocytosis 1+ (Not Present) A 12/21/17 13:20 Microcytosis Present (Not Present) A 12/20/17 04:07 Macrocytosis Present (Not Present) A 12/21/17 13:20 PT 12.8 Seconds (9.4-12.1) H 12/21/17 14:32 ABG pH 7.46 pH Units (7.32-7.45) H 12/21/17 16:34 ABG pCO2 68 mmHg (35-45) H 12/21/17 16:34 ABG pO2 59 mmHg (85-104) L 12/21/17 16:34 ABG HCO3 48 mEq/L (21-27) H 12/21/17 16:34 ABG Total CO2 50 mEq/L (20-26) H 12/21/17 16:34 ABG O2 Saturation 90 % (95-98) L 12/21/17 16:34 ABG Base Excess 22 mEq/L (-2 to 3) H 12/21/17 16:34 VBG pH 7.29 pH Units (7.32-7.42) L 12/19/17 14:23 VBG pCO2 91 mmHg (41-51) H* 12/19/17 14:23 VBG pO2 66 mmHg (25-50) H 12/19/17 14:23 VBG HCO3 43 mEq/L (21-27) H 12/19/17 14:23 Chloride 93 mEq/L (98-107) L 12/21/17 14:32 Carbon Dioxide > 45 mEq/L (23-29) H* 12/21/17 14:32 BUN 54 mg/dL (8-23) H 12/21/17 14:32 BUN/Creatinine Ratio 72 (6-26) H 12/21/17 14:32 Glucose 191 mg/dL (70-105) H 12/21/17 14:32 POC Glucose 166 mg/dL (70-99) H 12/21/17 11:21 Calculated Osmolality 310 (280-300) H 12/21/17 14:32 Calcium 7.5 mg/dL (8.6-10.3) L 12/21/17 14:32 Venous Ioniz Calcium 1.00 mmol/L (1.15-1.35) L 12/21/17 14:48 Troponin I 0.04 ng/mL (< 0.04) H* 12/21/17 19:54 B-Natriuretic Peptide 319 pg/mL (Less than 100) H 12/15/17 03:50 Serum Total Protein 4.6 g/dL (6.4-8.9) L 12/21/17 14:32 Albumin 1.9 g/dL (3.5-5.7) L 12/21/17 14:32 Albumin/Globulin Ratio 0.7 (1.1-2.2) L 12/21/17 14:32 Prealbumin 9.4 mg/dL (17.0-34.0) L 12/14/17 13:58 - Clinical Findings Intake & Output: Intake & Output 12/21/17 12/21/17 12/21/17 07:59 15:59 23:59 Intake Total 500 / 500 560 / 560 1621 / 1621 Output Total 0 / 0 650 / 650 Balance 500 / 500 560 / 560 971 / 971 Weight 59.6 kg - Attending Attestation I saw and evaluated this patient and my medical decision-making was reviewed with the Resident Physician. I agree with the documented findings, disposition and treatment plan as described except to the extent set forth below. We independently had [id number] contact with the patient I spent 40 minutes of Critical Care time with this patient. It involved decision making of high complexity to assess, manipulate, and support vital organ system failure and/or to prevent further life threatening deterioration of the patient's condition. The time involved in the performance of separately reportable procedures was not counted toward critical care time. Patient seen and examined at bedside Labs, radiology, chart personally reviewed. 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 Pulm: Patient has chronic COPD and fibrosis with chronic hypercarbia will put her on BIPAP at night .Finished eight day course of antibiotics for possible pneumonia Cards: Patient is in shock due to hypovolemia GI bleed from most likely erosion of the stomach . EGD pending FEN-GI: NPO patient has GI bleed , CTA GI bleed protocol showed active GI bleed from stomach greater curvature.. Endoscopy pending . Will continue IV PPI Renal:Labs and output reviewed will keep hydrated after the dye ID: Elevated white count just finished 8 days of antibiotics the current shock most likely hypovolemia Heme/Onc: Leukocytosis , Coagulation profile normal Acute blood loss anemia responding well PRBC resuscitation Endo: Glucose Monitored Integ/MSK: Skin Care per routine ICU Nursing Protocol to prevent ulcers. Lines: All lines examined without evidence of infection : Dispo: Critically ill high chance of cardiopulmonary decline CODE: Full Code Family updated . gave consent for the [place] Santana introducer.
[2017-12-21 16:37] LABS: ABG Base Excess 22 mEq/L (-2 to 3); ABG HCO3 48 mEq/L (21-27); ABG Oxygen Saturation 90 % (95-98); ABG PCO2 68 mmHg (35-45); ABG PH 7.46 pH Units (7.32-7.45); ABG PO2 59 mmHg (85-104); ABG TCO2 50 mEq/L (20-26)
--- NOTE | 2017-12-21 16:41 | Procedure Note ---
<Main Toledo - Last Filed: 12/21/17 16:49> Date of procedure: 12/21/17 Pre-op diagnosis: GI bleed Post-op diagnosis: same Procedure: Central Line Procedure Note: Central Venous Catheter Insertion Indication:GI Bleed, Hypotension Attending Physician:Dr. Romero High Lead Yarder: Dr. [place] Indication: This is a 67 year-old female with GI bleed . Consent: Detailed explanation of the procedure, treatment options, risks including but not limited to infection and bleeding, and benefits were explained to the patient. A verbal informed consent was obtained emergently . Technique: A time out was preformed identifying the correct procedure, the correct location with the nursing staff. The right groin was prepped with 2% chlorhexidine and draped with a full length sterile sheet in the usual fashion. The right vein was accessed under ultrasound guidance with an 18 gauge thin wall needle. A 7Fr cordis catheter was introduced via seldinger technique. A triple lumen was inserted through the 7Fr catheter. Blood was withdrawn from all lumens and flushed with normal saline. The catheter was sutured in place and a sterile dressing was applied over the site prior to removal of drapes. The patient tolerated the procedure well and there were no complications. EBL: minimal Complication: None Was there an curriculum assistant present: Yes Slots Manager: Souleymane Red Estimated blood loss (cc): 1 Specimen: N/A Pathology: none sent Condition: critical Disposition: ICU <Serafin Romero - Last Filed: 12/21/17 21:00> Procedure: I was present for the entire procedure assisted the resident in critical steps.
[2017-12-21 16:55] LABS: Hematocrit 24.8 % (35.3-44.9)
[2017-12-21] MEDS ORDERED: Clinimix E 5%-15% SOLUTION 2,000 ML with MVI, adult with vitamin K 10 ML IVC SCH ×2 (17:00→18:00)
[2017-12-21] MEDS ORDERED: Pantoprazole 40 MG in 0.9 % Sodium Chloride Mini Bag 100 ML IVC SCH (17:00)
[2017-12-21 17:04] LABS: Hemoglobin 8.1 g/dL (11.5-15.4)
[2017-12-21] MEDS ORDERED: *HR* Midazolam HCl 5 MG/5 ML VIAL IVP ONE (17:23)
[2017-12-21] MEDS ORDERED: Saliva Stimulant 100ml BOTTLE PO PRN (18:00)
[2017-12-21] MEDS ORDERED: OXYCODONE Oral CONC 10 MG/0.5 ML ORAL.SYG SL PRN (18:00)
[2017-12-21] MEDS ORDERED: Pantoprazole 40 MG VIAL IVP SCH (18:00)
[2017-12-21] MEDS ORDERED: Dextrose Gel 15 GM/37.5 ML TUBE PO PRN ×2 (18:00)
[2017-12-21] MEDS ORDERED: Naloxone 0.4 MG/ML INJ IVP PRN (18:00)
[2017-12-21] MEDS ORDERED: D5% in Water 1,000 ML IVC PRN (18:00)
[2017-12-21] MEDS ORDERED: BENZOCAINE/MENTHOL 1 LOZENGE (BAG OF 6) MM PRN (18:00)
[2017-12-21] MEDS ORDERED: *HR* Promethazine 25 MG/ML VIAL IVP PRN (18:00)
[2017-12-21] MEDS ORDERED: *HR* Dextrose 50 % in Water (Syg) 50 ML SYRINGE IVP PRN (18:00)
[2017-12-21] MEDS ORDERED: D10% in Water 500 ML IVC PRN (18:00)
--- NOTE | 2017-12-21 19:04 | Pre-Sedation Evaluation ---
Pre-sedation evaluation - Pre-sedation checklist Date of procedure: 12/21/17 Procedure: Exploratory bowel Recent Vitals: Last Vital Signs Temp 97.6 F 12/21/17 17:00 Pulse 99 12/21/17 17:51 Resp 16 12/21/17 17:51 BP 101/63 12/21/17 17:51 Pulse Ox 97 12/21/17 17:51 H&P (including ROS) documented in medical record: Yes Previous reaction to sedatives/anesthetics: Yes; explain in comment Dietary Status: NPO after Midnight Airway Assessment: Patient can open mouth completely, TMJ function normal Dentition: No loose teeth or bridges Possible difficult airway: No ASA Classification *see protocol: CLASS III-Severe systemic disease Plan of Care: Pt appropriate candidate for procedure/moderate/conscious sedation
--- NOTE | 2017-12-21 19:06 | Event Note ---
Date of Encounter: 12/21/17 Time of Encounter: 19:04 EGD performed-patient repositioned twice during procedure. Noted blood clot in stomach. Superficial erosions present-possible ulcers and NGT trauma. Small oozing noted from superficial mucosal erosion, however upon repositioning there was no further bleeding. Replaced NGT. Continue IV protonix and carafate. Continue resusitation and may consider repeat EGD in 24 hours.
[2017-12-21] MEDS: Pantoprazole 40 MG in 0.9 % Sodium Chloride Mini Bag 100 ML IVC SCH ×2 (21:11→21:25)
[2017-12-21] MEDS: Norepinephrine 4 MG in D5% in Water 250 ML IVC SCH (21:11)
[2017-12-21] MEDS: Beclomethasone 80mcg MDI IH SCH (21:47)
[2017-12-21] MEDS ORDERED: Beclomethasone 80mcg MDI IH SCH (22:00)
[2017-12-22 00:14] LABS: VBG Ionized Calcium 0.96 mmol/L (1.15-1.35)
[2017-12-22 00:17] LABS: Hematocrit 26.4 % (35.3-44.9); Hemoglobin 8.9 g/dL (11.5-15.4)
[2017-12-22] MEDS: Ondansetron 4 MG/2 ML VIAL IVP PRN ×3 (00:47→13:44)
[2017-12-22] MEDS: Pantoprazole 40 MG in 0.9 % Sodium Chloride Mini Bag 100 ML IVC SCH ×5 (03:10→22:41)
[2017-12-22] MEDS: Acetaminophen IV 1,000 MG/100 ML INFUS..BTL IVPB SCH ×2 (03:10→08:29)
[2017-12-22] MEDS: Levalbuterol Neb 0.63 MG/3 ML IH SCH ×4 (03:40→21:51)
[2017-12-22] MEDS: Insulin LISPRO 300 UNITS/3 ML VIAL SQ SCH ×6 (04:16→23:43)
[2017-12-22 04:21] LABS: Basophils # 0.1 K/mcL (0.0-0.2); Eosinophils # 0.3 K/mcL (0.0-0.6); Eosinophils % 2.3 %; Hematocrit 22.2 % (35.3-44.9); Hemoglobin 7.4 g/dL (11.5-15.4); Immature Granulocytes % 0.5 % (0-4); Lymphocytes # 2.3 K/mcL (0.6-4.6); Lymphocytes % 19.4 %; Mean Corpuscular HGB Conc 33.3 g/dL (31.6-35.5); Mean Corpuscular Hemoglobin 30.5 pg (28.0-33.3); Mean Platelet Volume 10.3 fL (9.4-12.4); Monocytes # 0.9 K/mcL (0.0-1.3); Monocytes % 7.5 %; Neutrophils # 8.3 K/mcL (1.6-8.9); Platelet Count 146 K/mcL (140-400); Red Blood Count 2.43 M/mcL (3.82-4.97); Red Cell Distribution Width 15.5 % (11.5-14.5); Segmented Neutrophils % 69.3 %
[2017-12-22 04:22] LABS: Mean Corpuscular Volume 91.4 fL (83.0-100.0)
[2017-12-22 04:43] LABS: BUN/Creatinine Ratio 97 (6-26); Blood Urea Nitrogen 70 mg/dL (8-23); Calcium 7.5 mg/dL (8.6-10.3); Carbon Dioxide 40 mEq/L (23-29); Chloride 97 mEq/L (98-107); Glucose 107 mg/dL (70-105); Osmolality,Calculated 307 (280-300); Potassium 3.9 mEq/L (3.5-5.1); Sodium 138 mEq/L (136-145); eGFR For African Americans > 60 (> 60); eGFR For Non-African Americans > 60 (> 60)
[2017-12-22 04:44] LABS: Alanine Aminotransferase 8 Units/L (7-52); Albumin 1.7 g/dL (3.5-5.7); Albumin/Globulin Ratio 0.7 (1.1-2.2); Alkaline Phosphatase 39 Units/L (34-104); Aspartate Amino Transferase 20 Units/L (13-39); Bilirubin,Total 0.5 mg/dL (0.3-1.0); Calcium 7.4 mg/dL (8.6-10.3); Globulin 2.3 g/dL (2.4-3.5); Magnesium 1.9 mg/dL (1.6-2.6); Phosphorous 2.9 mg/dL (2.7-4.5)
[2017-12-22] MEDS ORDERED: 0.9 % Sodium Chloride 500 ML ONE (05:08)
[2017-12-22 05:13] LABS: VBG Ionized Calcium 1.05 mmol/L (1.15-1.35)
[2017-12-22] MEDS: *HR* Metoprolol 5 MG/5 ML VIAL IVP SCH ×5 (05:15→23:47)
[2017-12-22] MEDS: Potassium Phosphate 44 MEQ in 0.9 % Sodium Chloride 250 ML IVPB PRN (05:38)
--- NOTE | 2017-12-22 07:39 | General Surgery Progress Note ---
Date of Encounter: 12/22/17 Time of Encounter: 07:32 - Assessment and Plan (1) Upper GI bleed Current Visit: Yes Status: Acute I noted the NG tube output and events from overnight. Patient has had blood transfusion repeat labs show hemoglobin 7.4. Patient for repeat transfusion today. The NG tube was manipulated and flushed with 100 mL of water with 100 mL returned that was dark in color. Abdominal x-ray was performed which showed that the NG tube tip was in the antrum of the stomach. Continue with current management. Obtain with IV Protonix and Carafate. Will consider repeating the EGD either later today or possibly tomorrow the patient continues to be hemodynamically stable (levophed stopped at 2 AM this morning). Addendum; we will go ahead and plan for an EGD for tomorrow as well as place a PEG for decompression. We will also be able to remove her NG tube at the same time. Subjective Patient reports: no new complaints, other (Noted nausea. Positive flatus. No BM. No reported NGT ouput overnight.) Objective Vital Signs - Last 8 Hours Temp Pulse Resp BP Pulse Ox 12/22/17 06:15 113 18 107/68 96 12/22/17 05:55 97.7 F 86 27 104/60 12/22/17 05:00 87 19 103/60 95 12/22/17 04:30 95 22 104/66 94 12/22/17 04:14 98.1 F 12/22/17 03:40 22 101/61 94 12/22/17 03:00 89 21 100/57 96 12/22/17 02:00 107 25 100/63 96 12/22/17 01:00 94 25 106/54 97 12/22/17 00:38 96.8 F L 12/22/17 00:15 117 23 106/75 97 12/22/17 00:07 22 118/70 97 12/22/17 00:00 117 Intake and Output 12/21/17 12/21/17 12/22/17 15:59 23:59 07:59 Intake Total 560 / 560 1964.1 / 1964.1 603.7 / 603.7 Output Total 650 / 650 400 / 400 Balance 560 / 560 1314.1 / 1314.1 203.7 / 203.7 Intake: IV Fluids 200 / 200 1364.1 / 1364.1 603.7 / 603.7 0.9 % Sodium Chloride 1,000 ML 821 / 821 @ 3750 mls/hr IVC .Q16M [facility] Rx# :[id number] Levophed 4 MG In Dextrose 5% 133.1 / 133.1 33.7 / 33.7 250 ML @ 15 MCG/MIN 57.15 mls/ hr IVC CONT [facility] Rx#:[id number] Protonix 40 MG In 0.9 % Sodium 100 / 100 Chloride (Mini-Bag +) 100 ML @ 20 mls/hr IVC .Q5H [facility] Rx#: [id number] Ofirmev 1,000 mg/100 ml 1,000 100 / 100 200 / 200 100 / 100 mg In 100 ml @ 400 mls/hr IVPB Q6H [facility] Rx#:[id number] Calcium Gluconate 1,000 MG In 0 110 / 110 220 / 220 .9 % Sodium Chloride 100 ML @ 220 mls/hr IVPB Q6HR [facility] Rx#: [id number] Magnesium Sulfate Premix 2gm/ 50 / 50 50mL 2 gm In 50 ml @ 50 mls/hr IVPB Q6H [facility]N Rx#:[id number] Zosyn 3.375 GM In 0.9 % Sodium 100 / 100 100 / 100 100 / 100 Chloride (Mini-Bag +) 100 ML @ 25 mls/hr IVPB Q8H [facility] Rx#: [id number] Oral 60 / 60 Blood Product 300 / 300 600 / 600 0 / 0 Rbcs Leuko Poor As-1 Unit 0 / 0 300 / 300 [id number] Rbcs Leuko Poor As-1 Unit 300 / 300 [id number] Rbcs Leuko Poor As-1 Unit 0 / 0 [id number] Rbcs Leuko Poor As-3 2nd Unit 0 / 0 [id number] Rbcs Leuko Poor As-3 Ph Unit 300 / 300 [id number] Output: Gastric Tube Lavage Amount 60 / 60 Left Nare 60 / 60 Catheter 390 / 390 400 / 400 Gastric Drainage 200 / 200 0 / 0 Other: Meal Breakfast Percent of Meal Consumed 0% Stool Size Moderate Stool Consistency liquid Stool Color Green # Bowel Movements 1 Weight 62.7 kg Blood Glucose* 158 233 122 Patient Weight 12/22/17 23:59 Weight 62.7 kg - General physical appearance no distress - Respiratory normal expansion, normal respiratory effort - Abdomen Abdomen: Present: soft, distended (mild abdominal pain to palpation. Scant bowel sounds. Dressing in place.) - Labs 12/22/17 03:55 12/22/17 03:55 Diabetes panel 12/21/17 12/21/17 12/21/17 Range/Units 04:00 13:20 14:32 Sodium 142 140 140 (136-145) mEq/L Potassium 3.7 3.9 4.0 (3.5-5.1) mEq/L Chloride 91 L 93 L 93 L (98-107) mEq/L Carbon Dioxide > 45 H* > 45 H* > 45 H* (23-29) mEq/L BUN 39 H 54 H 54 H (8-23) mg/dL Creatinine 0.61 0.72 0.75 (0.60-1.20) mg/dL Glucose 150 H 199 H 191 H (70-105) mg/dL Calcium 8.1 L 7.5 L 7.5 L (8.6-10.3) mg/dL AST 15 17 (13-39) Units/L ALT 6 L 7 (7-52) Units/L Alkaline Phosphatase 46 49 (34-104) Units/L Albumin 1.7 L 1.9 L (3.5-5.7) g/dL 12/22/17 12/22/17 Range/Units 03:55 03:55 Sodium 138 TNP (136-145) mEq/L Potassium 3.9 TNP (3.5-5.1) mEq/L Chloride 97 L TNP (98-107) mEq/L Carbon Dioxide 40 H* TNP (23-29) mEq/L BUN 70 H TNP (8-23) mg/dL Creatinine 0.72 TNP (0.60-1.20) mg/dL Glucose 107 H TNP (70-105) mg/dL Calcium 7.5 L 7.4 L (8.6-10.3) mg/dL AST 20 (13-39) Units/L ALT 8 (7-52) Units/L Alkaline Phosphatase 39 (34-104) Units/L Albumin 1.7 L (3.5-5.7) g/dL Calcium panel 12/21/17 12/21/1718 Range/Units 04:00 13:20 14:32 Calcium 8.1 L 7.5 L 7.5 L (8.6-10.3) mg/dL Phosphorus 3.4 (2.7-4.5) mg/dL Albumin 1.7 L 1.9 L (3.5-5.7) g/dL 12/22/17 12/22/17 Range/Units 03:55 03:55 Calcium 7.5 L 7.4 L (8.6-10.3) mg/dL Phosphorus 2.9 (2.7-4.5) mg/dL Albumin 1.7 L (3.5-5.7) g/dL Pituitary panel 12/21/17 12/21/17 12/21/17 Range/Units 04:00 13:20 14:32 Sodium 142 140 140 (136-145) mEq/L Potassium 3.7 3.9 4.0 (3.5-5.1) mEq/L Chloride 91 L 93 L 93 L (98-107) mEq/L Carbon Dioxide > 45 H* > 45 H* > 45 H* (23-29) mEq/L BUN 39 H 54 H 54 H (8-23) mg/dL Creatinine 0.61 0.72 0.75 (0.60-1.20) mg/dL Glucose 150 H 199 H 191 H (70-105) mg/dL Calcium 8.1 L 7.5 L 7.5 L (8.6-10.3) mg/dL 12/22/17 12/22/17 Range/Units 03:55 03:55 Sodium 138 TNP (136-145) mEq/L Potassium 3.9 TNP (3.5-5.1) mEq/L Chloride 97 L TNP (98-107) mEq/L Carbon Dioxide 40 H* TNP (23-29) mEq/L BUN 70 H TNP (8-23) mg/dL Creatinine 0.72 TNP (0.60-1.20) mg/dL Glucose 107 H TNP (70-105) mg/dL Calcium 7.5 L 7.4 L (8.6-10.3) mg/dL Adrenal panel 12/21/17 12/21/17 12/21/17 Range/Units 04:00 13:20 14:32 Sodium 142 140 140 (136-145) mEq/L Potassium 3.7 3.9 4.0 (3.5-5.1) mEq/L Chloride 91 L 93 L 93 L (98-107) mEq/L Carbon Dioxide > 45 H* > 45 H* > 45 H* (23-29) mEq/L BUN 39 H 54 H 54 H (8-23) mg/dL Creatinine 0.61 0.72 0.75 (0.60-1.20) mg/dL Glucose 150 H 199 H 191 H (70-105) mg/dL Calcium 8.1 L 7.5 L 7.5 L (8.6-10.3) mg/dL Total Bilirubin 0.5 0.6 (0.3-1.0) mg/dL AST 15 17 (13-39) Units/L ALT 6 L 7 (7-52) Units/L Alkaline Phosphatase 46 49 (34-104) Units/L Albumin 1.7 L 1.9 L (3.5-5.7) g/dL 12/22/17 12/22/17 Range/Units 03:55 03:55 Sodium 138 TNP (136-145) mEq/L Potassium 3.9 TNP (3.5-5.1) mEq/L Chloride 97 L TNP (98-107) mEq/L Carbon Dioxide 40 H* TNP (23-29) mEq/L BUN 70 H TNP (8-23) mg/dL Creatinine 0.72 TNP (0.60-1.20) mg/dL Glucose 107 H TNP (70-105) mg/dL Calcium 7.5 L 7.4 L (8.6-10.3) mg/dL Total Bilirubin 0.5 (0.3-1.0) mg/dL AST 20 (13-39) Units/L ALT 8 (7-52) Units/L Alkaline Phosphatase 39 (34-104) Units/L Albumin 1.7 L (3.5-5.7) g/dL - VTE Documentation of Mechanical Device: Intermittent pneumatic compression device Consult Discharge Plan - Plan Referrals: Sloane Murphy DO [Primary Care Provider] - Edmund Ritchie [Partnered Physician] - 12/31/17 3:30 pm
[2017-12-22] MEDS: *HR* Digoxin 0.5 MG/2 ML AMPUL IVP SCH (08:31)
--- NOTE | 2017-12-22 08:32 | Pulmonology Progress Note ---
<Souleymane Red - Last Filed: 12/22/17 11:05> Date of Encounter: 12/22/17 Time of Encounter: 08:32 Assessment and Plan (1) Upper GI bleed Current Visit: Yes Status: Acute Patient did have surgery done on 12/[address] Chauhan where he did exploratory lysis of adhesions as well as celiac to me. This was successfully done to where they did remove one adhesion did not find a small bowel obstruction patient has still been nothing by mouth as well as with an NG tube placed. Today patient seemed to be more pale starting to be diaphoretic and tachycardic so they suctioned from the NG tube and noticed bright red blood coming from and they removed approximately 200 mL. That time CBC was ordered which showed hemoglobin of 5.9. Patient was then transferred to the ICU for further management. Prior to blood being given CBC showed hemoglobin of 6.0. Consulted Dr. Chauhan the general surgeon who recommended that we stabilize the patient and consider endoscopy. We did do bedside FAST exam via ultrasound which did seem to show positive fluid in the right upper quadrant. Due to this we ordered a stat abdomen and pelvis CT. Results are still pending. Cordis catheter with a triple lumen central venous catheter was successfully placed in the right groin please see procedure note for details. Patient was hypotensive in the 80s over 40 when he first arrived so patient did have a PICC line and norepi was started this is controlling her blood pressure well. Patient is still on norepinephrine CTA of the abdomen and pelvis was done due to FAST exam being positive this did show a active bleed in the greater curvature of the stomach. This was called to us from the radiologist. EGD was done yesterday by Dr. Chauhan which showed erosions with clot formation but there is no active bleeding. He was able to see and the duodenum. Please refer to his note for further. He did recommend possible repeat EGD tomorrow. Patient's hemoglobin was continuing to drop last night so we gave 2 more units of patient is a total of 6 units packed red blood cells. 6 units packed red blood cells transfused Continue to monitor NG tube for bright red blood. Protonix Carafate Monitor hemoglobin and then daily hemoglobins. (2) Small bowel obstruction due to adhesions Current Visit: Yes Status: Acute Status post exploratory celiotomy with lysis of adhesions postop day #[address] Chauhan General surgery is following. Patient still has NG tube Continue TPN for nutritional support Patient no longer on antibiotics that she completed an 8 day course of Zosyn and linezolid Appreciate general surgery's recommendations. (3) Leukocytosis Current Visit: Yes Status: Acute Original leukocytosis had a white count of 33.3. The did normalize to 10.3 prior to coming to the ICU. After returning repeat was 18.4 this most likely stress reaction due to the anemia. Today it is normalizing to 12.0. Continue daily CBCs. Cultures were negative patient did finish a 8 day course of linezolid and Zosyn. Qualifiers: Leukocytosis type: bandemia Qualified Code(s): D72.825 - Bandemia (4) Respiratory acidosis Current Visit: Yes Status: Resolved Patient does have history of COPD does see pulmonology regularly VBG was done on the floor which did show respiratory acidosis with a PCO2 of 91 she does seem to be a chronic retainer at baseline. Patient's bicarbonate was 43. Patient does use BiPAP we needed and does help with patient's ABG as it does partially normalize. Goal oxygen saturation for patient is 88-92%. Continue CPAP as needed for her story distress if patient does desaturate consider intubation. (5) HTN (hypertension) Current Visit: No Status: Chronic Patient does have history of hypertension. Patient was hypotensive when she came here most likely just due to fluid deficit as well as blood product deficit. We will hold all hypertensive medications until patient's blood pressure normalizes. Levophed was stopped last night approximately 2 AM. We will continue to monitor for hypotension. It should get better as patient is receiving both blood product and fluids. Qualifiers: Hypertension type: essential hypertension Qualified Code(s): I10 - Essential (primary) hypertension (6) Chronic diastolic heart failure Current Visit: No Status: Chronic Patient does have history of chronic diastolic heart failure. She has a normal EF of 65%. Will be due to initial and how much fluid resuscitation we will give Continue to monitor (7) Coronary artery disease Current Visit: Yes Status: Acute Patient does have history of coronary artery disease we will continue normal home medications Qualifiers: Coronary Disease-Associated Artery/Lesion type: [place] artery [place] vs. transplanted heart: [place] heart Associated angina: without angina Qualified Code(s): I25.10 - Atherosclerotic heart disease of [place] coronary artery without angina pectoris (8) Atrial fibrillation/flutter Current Visit: Yes Status: Acute Patient does have history of paroxysmal atrial fibrillation. Continue digoxin and metoprolol, rate controlled Patient is not on anticoagulation because history of alveolar hemorrhage. (9) Anemia Current Visit: Yes Status: Acute Patient did have a acutely anemic event. This most likely due to possible upper GI bleed. See above for treatment and plan. Qualifiers: Anemia type: unspecified type Qualified Code(s): D64.9 - Anemia, unspecified (10) Diabetes mellitus, type 2 Current Visit: No Status: Chronic Sliding scale insulin Accu-Cheks every 4 hours Acceptable glucose less than 180 Qualifiers: Diabetes mellitus terminal make up operator insulin use: without alf use Diabetes mellitus complication status: with hyperglycemia Qualified Code(s): E11.65 - Type 2 diabetes mellitus with hyperglycemia (11) DVT prophylaxis Current Visit: No Status: Acute Subcutaneous heparin Subjective Principal diagnosis: Abdominal pain Interval history: Patient had no overnight events she did well. Pressors have been stopped. She gave total of 6 units of blood yesterday and this morning. EGD was done last night by Dr. Chauhan which did show erosions and clot observed in the stomach. There was no active bleeding. Patient is still alert and oriented she says she feels much better now. Hemoglobin seems to be stabilizing Objective PUL Vital signs: Last Vital Signs Temp 97.9 F 12/22/17 08:09 Pulse 113 12/22/17 06:15 Resp 18 12/22/17 06:15 BP 107/68 12/22/17 06:15 Pulse Ox 96 12/22/17 06:15 General appearance: no acute distress Eyes: nonicteric ENT: oropharynx moist Neck: supple Effort: normal Auscultation: bilateral: clear Cardiovascular: regular rate and rhythm Gastrointestinal: normoactive bowel sounds, non-distended Integumentary: normal Extremities: no cyanosis, no edema, no clubbing Musculoskeletal: no deformities, ROM normal normal mental status, non-focal exam, pupils equal and round, motor strength normal and symmetric Results - Laboratory Findings CBC and BMP: 12/22/17 03:55 12/22/17 03:55 ABG ABG pH 7.46 pH Units (7.32-7.45) H 12/21/17 16:34 ABG pCO2 68 mmHg (35-45) H 12/21/17 16:34 ABG pO2 59 mmHg (85-104) L 12/21/17 16:34 ABG O2 Saturation 90 % (95-98) L 12/21/17 16:34 PT/INR, D-dimer PT 12.8 Seconds (9.4-12.1) H 12/21/17 14:32 Abnormal lab findings: Abnormal lab results WBC 12.0 K/mcL (4.3-11.1) H 12/22/17 03:55 RBC 2.43 M/mcL (3.82-4.97) L 12/22/17 03:55 Hgb 7.4 g/dL (11.5-15.4) L D 12/22/17 03:55 Hct 22.2 % (35.3-44.9) L 12/22/17 03:55 RDW 15.5 % (11.5-14.5) H 12/22/17 03:55 Reactive Lymphocytes Present (Not Present) A 12/20/17 04:07 Toxic Granulation Present (Not Present) A 12/16/17 07:05 Hypochromasia Present (Not Present) A 12/21/17 13:20 Anisocytosis 1+ (Not Present) A 12/21/17 13:20 Microcytosis Present (Not Present) A 12/20/17 04:07 Macrocytosis Present (Not Present) A 12/21/17 13:20 PT 12.8 Seconds (9.4-12.1) H 12/21/17 14:32 ABG pH 7.46 pH Units (7.32-7.45) H 12/21/17 16:34 ABG pCO2 68 mmHg (35-45) H 12/21/17 16:34 ABG pO2 59 mmHg (85-104) L 12/21/17 16:34 ABG HCO3 48 mEq/L (21-27) H 12/21/17 16:34 ABG Total CO2 50 mEq/L (20-26) H 12/21/17 16:34 ABG O2 Saturation 90 % (95-98) L 12/21/17 16:34 ABG Base Excess 22 mEq/L (-2 to 3) H 12/21/17 16:34 VBG pH 7.29 pH Units (7.32-7.42) L 12/19/17 14:23 VBG pCO2 91 mmHg (41-51) H* 12/19/17 14:23 VBG pO2 66 mmHg (25-50) H 12/19/17 14:23 VBG HCO3 43 mEq/L (21-27) H 12/19/17 14:23 BUN/Creatinine Ratio 97 (6-26) H 12/22/17 03:55 POC Glucose 210 mg/dL (70-99) H 12/21/17 23:49 Calculated Osmolality 307 (280-300) H 12/22/17 03:55 Calcium 7.4 mg/dL (8.6-10.3) L 12/22/17 03:55 Venous Ioniz Calcium 1.05 mmol/L (1.15-1.35) L 12/22/17 05:11 Troponin I 0.04 ng/mL (< 0.04) H* 12/21/17 19:54 B-Natriuretic Peptide 319 pg/mL (Less than 100) H 12/15/17 03:50 Serum Total Protein 4.0 g/dL (6.4-8.9) L 12/22/17 03:55 Albumin 1.7 g/dL (3.5-5.7) L 12/22/17 03:55 Globulin 2.3 g/dL (2.4-3.5) L 12/22/17 03:55 Albumin/Globulin Ratio 0.7 (1.1-2.2) L 12/22/17 03:55 Prealbumin 9.4 mg/dL (17.0-34.0) L 12/14/17 13:58 - Diagnostic Findings Chest x-ray: report reviewed, image reviewed - Clinical Findings Intake & Output: Intake & Output 12/21/17 12/22/17 12/22/17 23:59 07:59 15:59 Intake Total 1964.1 / 1964.1 603.7 / 603.7 Output Total 650 / 650 400 / 400 200 / 200 Balance 1314.1 / 1314.1 203.7 / 203.7 -200 / -200 Weight 62.7 kg - VTE Documentation of Mechanical Device: Intermittent pneumatic compression device Consult Discharge Plan - Plan Referrals: Sloane Murphy DO [Primary Care Provider] - Edmund Ritchie [Partnered Physician] - 12/31/17 3:30 pm <Serafin Romero S - Last Filed: 12/22/17 22:03> Date of Encounter: 12/22/17 Objective PUL Vital signs: Last Vital Signs Temp 100.1 F H 12/22/17 21:17 Pulse 92 12/22/17 21:00 Resp 12 12/22/17 21:00 BP 117/65 12/22/17 21:00 Pulse Ox 98 12/22/17 21:00 Results - Laboratory Findings CBC and BMP: 12/22/17 20:40 12/22/17 15:00 ABG ABG pH 7.46 pH Units (7.32-7.45) H 12/21/17 16:34 ABG pCO2 68 mmHg (35-45) H 12/21/17 16:34 ABG pO2 59 mmHg (85-104) L 12/21/17 16:34 ABG O2 Saturation 90 % (95-98) L 12/21/17 16:34 PT/INR, D-dimer PT 11.9 Seconds (9.4-12.1) 12/22/17 20:40 Abnormal lab findings: Abnormal lab results WBC 12.0 K/mcL (4.3-11.1) H 12/22/17 03:55 RBC 2.43 M/mcL (3.82-4.97) L 12/22/17 03:55 Hgb 10.0 g/dL (11.5-15.4) L 12/22/17 20:40 Hct 29.9 % (35.3-44.9) L 12/22/17 20:40 RDW 15.5 % (11.5-14.5) H 12/22/17 03:55 Reactive Lymphocytes Present (Not Present) A 12/20/17 04:07 Toxic Granulation Present (Not Present) A 12/16/17 07:05 Hypochromasia Present (Not Present) A 12/21/17 13:20 Anisocytosis 1+ (Not Present) A 12/21/17 13:20 Microcytosis Present (Not Present) A 12/20/17 04:07 Macrocytosis Present (Not Present) A 12/21/17 13:20 ABG pH 7.46 pH Units (7.32-7.45) H 12/21/17 16:34 ABG pCO2 68 mmHg (35-45) H 12/21/17 16:34 ABG pO2 59 mmHg (85-104) L 12/21/17 16:34 ABG HCO3 48 mEq/L (21-27) H 12/21/17 16:34 ABG Total CO2 50 mEq/L (20-26) H 12/21/17 16:34 ABG O2 Saturation 90 % (95-98) L 12/21/17 16:34 ABG Base Excess 22 mEq/L (-2 to 3) H 12/21/17 16:34 VBG pH 7.29 pH Units (7.32-7.42) L 12/19/17 14:23 VBG pCO2 91 mmHg (41-51) H* 12/19/17 14:23 VBG pO2 66 mmHg (25-50) H 12/19/17 14:23 VBG HCO3 43 mEq/L (21-27) H 12/19/17 14:23 BUN/Creatinine Ratio 97 (6-26) H 12/22/17 03:55 POC Glucose 210 mg/dL (70-99) H 12/21/17 23:49 Calculated Osmolality 307 (280-300) H 12/22/17 03:55 Calcium 7.4 mg/dL (8.6-10.3) L 12/22/17 03:55 Venous Ioniz Calcium 1.10 mmol/L (1.15-1.35) L 12/22/17 15:49 Troponin I 0.04 ng/mL (< 0.04) H* 12/21/17 19:54 B-Natriuretic Peptide 319 pg/mL (Less than 100) H 12/15/17 03:50 Serum Total Protein 4.0 g/dL (6.4-8.9) L 12/22/17 03:55 Albumin 1.7 g/dL (3.5-5.7) L 12/22/17 03:55 Globulin 2.3 g/dL (2.4-3.5) L 12/22/17 03:55 Albumin/Globulin Ratio 0.7 (1.1-2.2) L 12/22/17 03:55 Prealbumin 9.4 mg/dL (17.0-34.0) L 12/14/17 13:58 - Clinical Findings Intake & Output: Intake & Output 12/22/17 12/22/17 12/22/17 07:59 15:59 23:59 Intake Total 603.7 / 603.7 2300 / 2300 100 / 100 Output Total 400 / 400 1050 / 1050 925 / 925 Balance 203.7 / 203.7 1250 / 1250 -825 / -825 Weight 62.7 kg - Attending Attestation - Attending Attestation I saw and evaluated this patient and my medical decision-making was reviewed with the Resident Physician. I agree with the documented findings, disposition and treatment plan as described except to the extent set forth below. We independently had [id number] contact with the patient Patient seen and examined at bedside Labs, radiology, chart personally reviewed. BRICK PITCHER:Patient is alert awake and oriented following commands. Pulm: Patient has chronic COPD and fibrosis with chronic hypercarbia will put her on BIPAP at night Cards: Patient is hemodynamically stable off vasopressor patien responded PRBC' s resuscitation the initial shock is due to hypovolemia FEN-GI: NPO patient has GI bleed , CTA GI bleed protocol showed active GI bleed from stomach greater curvature.. Endoscopy showed gastric erosion had a huge clot but there is no active bleeding . Will continue IV PPI infusion and Sucralfate Renal:Labs and output reviewed stef ID: Just finished 8 day course of antibiotics for suspected pneumonia Heme/Onc: Coagulation profile normal Acute blood loss anemia responding well PRBC resuscitation Endo: Glucose Monitored Integ/MSK: Skin Care per routine ICU Nursing Protocol to prevent ulcers. Lines: All lines examined without evidence of infection : Dispo: Critically ill high chance of cardiopulmonary decline CODE: Full Code Family updated .
[2017-12-22] MEDS: Piperacillin/Tazobactam 3.375 GM in 0.9 % Sodium Chloride Mini Bag 100 ML IVPB SCH ×3 (08:33→23:42)
[2017-12-22] MEDS: *HR* FentaNYL (PF) 100 MCG/2 ML VIAL IVP PRN (08:41)
[2017-12-22] MEDS: Beclomethasone 80mcg MDI IH SCH ×2 (10:48→21:51)
--- NOTE | 2017-12-22 10:48 | General Surgery Progress Note ---
Date of Encounter: 12/22/17 Time of Encounter: 10:30 - Assessment and Plan (1) Small bowel obstruction Current Visit: Yes Status: Acute POD #7 Exploratory celiotomy with lysis of adhesion with Dr. Chauhan NPO NG tube in good placement- LIWS Continue TPN for nutritional support IV antibiotics- Zosyn Supportive care and pain control Consider GI consult for prolonged ileus of unknown cause PPI therapy- protonix gtt started per critical care team secondary to UGI bleed Wound care daily Continue mayes catheter for strict I&O's (2) Upper GI bleed Current Visit: Yes Status: Acute Continue NG tube to LIWS Protonic gtt Carafate slurry via NG tube QID Transfuse PRBC per critical care team- total of 6 units transfused Monitor Hgb/Hct S/P EGD 12/[address] Chauhan- erosions and clot observed in the stomach Possible repeat EGD in the upcoming days with Dr. Chauhan (3) Anemia Current Visit: Yes Status: Acute Hgb- 6>8.1>10>8.9>7.4 Transfuse PRBC per critical care team- total of 6 units of PRBC transfused Monitor Hgb/Hct Qualifiers: Anemia type: unspecified type Qualified Code(s): D64.9 - Anemia, unspecified (4) Atrial fibrillation/flutter Current Visit: Yes Status: Acute HR- 116 Management per critical care team Subjective Patient reports: no new complaints, feels better, still having pain, pain is less, bowel movement (loose BM last 12/21/17), nausea, afebrile, other (Pressor support off last evening per nursing staff) Objective Vital Signs - Last 8 Hours Temp Pulse Resp BP Pulse Ox 12/22/17 10:00 116 20 105/73 100 12/22/17 09:30 112 20 114/67 100 12/22/17 09:11 97.9 F 115 20 111/66 12/22/17 09:09 97.9 F 20 108/70 100 12/22/17 08:30 97.9 F 117 20 94/70 100 12/22/17 08:09 97.9 F 12/22/17 07:00 116 20 115/71 100 12/22/17 06:15 113 18 107/68 96 12/22/17 05:55 97.7 F 86 27 104/60 12/22/17 05:54 97.9 F 114 20 114/67 100 12/22/17 05:00 87 19 103/60 95 12/22/17 04:30 95 22 104/66 94 12/22/17 04:14 98.1 F 12/22/17 03:40 22 101/61 94 12/22/17 03:00 89 21 100/57 96 Intake and Output 12/21/17 12/22/17 12/22/17 23:59 07:59 15:59 Intake Total 1964.1 / 1964.1 603.7 / 603.7 1700 / 1700 Output Total 650 / 650 400 / 400 200 / 200 Balance 1314.1 / 1314.1 203.7 / 203.7 1500 / 1500 Intake: IV Fluids 1364.1 / 1364.1 603.7 / 603.7 1100 / 1100 0.45% Sodium Chloride 1000 Ml 1000 / 1000 1000 Ml 1,000 ML @ 75 mls/hr IVC .[id number] [facility] Rx#:[id number] 0.9 % Sodium Chloride 1,000 ML 821 / 821 @ 3750 mls/hr IVC .Q16M [facility] Rx# :[id number] Levophed 4 MG In Dextrose 5% 133.1 / 133.1 33.7 / 33.7 250 ML @ 15 MCG/MIN 57.15 mls/ hr IVC CONT [facility] Rx#:[id number] Protonix 40 MG In 0.9 % Sodium 100 / 100 100 / 100 Chloride (Mini-Bag +) 100 ML @ 20 mls/hr IVC .Q5H [facility] Rx#: [id number] Ofirmev 1,000 mg/100 ml 1,000 200 / 200 100 / 100 mg In 100 ml @ 400 mls/hr IVPB Q6H [facility] Rx#:[id number] Calcium Gluconate 1,000 MG In 0 110 / 110 220 / 220 .9 % Sodium Chloride 100 ML @ 220 mls/hr IVPB Q6HR PRN Rx#: [id number] Magnesium Sulfate Premix 2gm/ 50 / 50 50mL 2 gm In 50 ml @ 50 mls/hr IVPB Q6H PRN Rx#:[id number] Zosyn 3.375 GM In 0.9 % Sodium 100 / 100 100 / 100 Chloride (Mini-Bag +) 100 ML @ 25 mls/hr IVPB Q8H [facility] Rx#: [id number] Blood Product 600 / 600 0 / 0 600 / 600 Rbcs Leuko Poor As-1 Unit 300 / 300 [id number] Rbcs Leuko Poor As-1 Unit 300 / 300 [id number] Rbcs Leuko Poor As-1 Unit 0 / 0 [id number] Rbcs Leuko Poor As-1 Unit 0 / 0 300 / 300 [id number] Rbcs Leuko Poor As-3 2nd Unit 0 / 0 300 / 300 [id number] Output: Gastric Tube Lavage Amount 60 / 60 Left Nare 60 / 60 Catheter 390 / 390 400 / 400 200 / 200 Gastric Drainage 200 / 200 0 / 0 Other: Weight 62.7 kg Blood Glucose* 233 122 119 Patient Weight 12/22/17 23:59 Weight 62.7 kg - General physical appearance well developed, no distress, moderate pain, chronically ill - Eyes PERRL, normal ocular movement - ENT dry mucosa, atraumatic, normocephalic - Neck Neck exam: trachea midline - Respiratory normal respiratory effort, clear to auscultation, other (diminished bibasilar bases) - Cardiovascular Cardiovascular exam: Present: irregular rhythm (HR- 115) - Abdomen Abdomen: Present: bowel sounds present, soft, tympanic, tender (expected tenderness), wound (NG tube to LIWS with drainage consistent with old blood ( approximately 100ml)) - Incision Incision: Present: serosanguinous (Midline incision open superficially with scant amount of serousang. drainage noted.) - Genitourinary other (mayes catheter to SD with clear, yellow urine noted (800ml noted since midnight)) - Neurologic CN 2-12 grossly intact - Musculoskeletal other (physical deconditioning noted) - Psychiatric oriented to person, oriented to place, speech is normal, memory intact - Labs 12/22/17 03:55 12/22/17 03:55 Diabetes panel 12/21/17 12/21/17 12/22/17 Range/Units 13:20 14:32 03:55 Sodium 140 140 138 (136-145) mEq/L Potassium 3.9 4.0 3.9 (3.5-5.1) mEq/L Chloride 93 L 93 L 97 L (98-107) mEq/L Carbon Dioxide > 45 H* > 45 H* 40 H* (23-29) mEq/L BUN 54 H 54 H 70 H (8-23) mg/dL Creatinine 0.72 0.75 0.72 (0.60-1.20) mg/dL Glucose 199 H 191 H 107 H (70-105) mg/dL Calcium 7.5 L 7.5 L 7.5 L (8.6-10.3) mg/dL AST 15 17 (13-39) Units/L ALT 6 L 7 (7-52) Units/L Alkaline Phosphatase 46 49 (34-104) Units/L Albumin 1.7 L 1.9 L (3.5-5.7) g/dL 12/22/17 Range/Units 03:55 Sodium TNP (136-145) mEq/L Potassium TNP (3.5-5.1) mEq/L Chloride TNP (98-107) mEq/L Carbon Dioxide TNP (23-29) mEq/L BUN TNP (8-23) mg/dL Creatinine TNP (0.60-1.20) mg/dL Glucose TNP (70-105) mg/dL Calcium 7.4 L (8.6-10.3) mg/dL AST 20 (13-39) Units/L ALT 8 (7-52) Units/L Alkaline Phosphatase 39 (34-104) Units/L Albumin 1.7 L (3.5-5.7) g/dL Calcium panel 12/21/17 12/21/17 12/22/17 Range/Units 13:20 14:32 03:55 Calcium 7.5 L 7.5 L 7.5 L (8.6-10.3) mg/dL Phosphorus 3.4 (2.7-4.5) mg/dL Albumin 1.7 L 1.9 L (3.5-5.7) g/dL 12/22/17 Range/Units 03:55 Calcium 7.4 L (8.6-10.3) mg/dL Phosphorus 2.9 (2.7-4.5) mg/dL Albumin 1.7 L (3.5-5.7) g/dL Pituitary panel 12/21/17 12/21/17 12/22/17 Range/Units 13:20 14:32 03:55 Sodium 140 140 138 (136-145) mEq/L Potassium 3.9 4.0 3.9 (3.5-5.1) mEq/L Chloride 93 L 93 L 97 L (98-107) mEq/L Carbon Dioxide > 45 H* > 45 H* 40 H* (23-29) mEq/L BUN 54 H 54 H 70 H (8-23) mg/dL Creatinine 0.72 0.75 0.72 (0.60-1.20) mg/dL Glucose 199 H 191 H 107 H (70-105) mg/dL Calcium 7.5 L 7.5 L 7.5 L (8.6-10.3) mg/dL 12/22/17 Range/Units 03:55 Sodium TNP (136-145) mEq/L Potassium TNP (3.5-5.1) mEq/L Chloride TNP (98-107) mEq/L Carbon Dioxide TNP (23-29) mEq/L BUN TNP (8-23) mg/dL Creatinine TNP (0.60-1.20) mg/dL Glucose TNP (70-105) mg/dL Calcium 7.4 L (8.6-10.3) mg/dL Adrenal panel 12/21/17 12/21/17 12/22/17 Range/Units 13:20 14:32 03:55 Sodium 140 140 138 (136-145) mEq/L Potassium 3.9 4.0 3.9 (3.5-5.1) mEq/L Chloride 93 L 93 L 97 L (98-107) mEq/L Carbon Dioxide > 45 H* > 45 H* 40 H* (23-29) mEq/L BUN 54 H 54 H 70 H (8-23) mg/dL Creatinine 0.72 0.75 0.72 (0.60-1.20) mg/dL Glucose 199 H 191 H 107 H (70-105) mg/dL Calcium 7.5 L 7.5 L 7.5 L (8.6-10.3) mg/dL Total Bilirubin 0.5 0.6 (0.3-1.0) mg/dL AST 15 17 (13-39) Units/L ALT 6 L 7 (7-52) Units/L Alkaline Phosphatase 46 49 (34-104) Units/L Albumin 1.7 L 1.9 L (3.5-5.7) g/dL 12/22/17 Range/Units 03:55 Sodium TNP (136-145) mEq/L Potassium TNP (3.5-5.1) mEq/L Chloride TNP (98-107) mEq/L Carbon Dioxide TNP (23-29) mEq/L BUN TNP (8-23) mg/dL Creatinine TNP (0.60-1.20) mg/dL Glucose TNP (70-105) mg/dL Calcium 7.4 L (8.6-10.3) mg/dL Total Bilirubin 0.5 (0.3-1.0) mg/dL AST 20 (13-39) Units/L ALT 8 (7-52) Units/L Alkaline Phosphatase 39 (34-104) Units/L Albumin 1.7 L (3.5-5.7) g/dL - VTE Documentation of Mechanical Device: Intermittent pneumatic compression device Consult Discharge Plan - Plan Referrals: Sloane Murphy DO [Primary Care Provider] - Edmund Ritchie [Partnered Physician] - 12/31/17 3:30 pm - Attending Attestation For this encounter, I have reviewed the EARLY CHILDHOOD EDUCATION INSTRUCTOR or PA documentation, treatment plan, and medical decision making; and I have had face to face time with this patient.
[2017-12-22] MEDS: 0.9 % Sodium Chloride 1,000 ML IVC ONE (11:30)
[2017-12-22] MEDS: OXYCODONE Oral CONC 10 MG/0.5 ML ORAL.SYG SL PRN (13:44)
[2017-12-22] MEDS ORDERED: *HR* Norepinephrine 4 MG/4 ML VIAL IVC ONE (14:58)
[2017-12-22 15:46] LABS: Hematocrit 29.8 % (35.3-44.9)
[2017-12-22 15:47] LABS: Hemoglobin 9.9 g/dL (11.5-15.4)
--- NOTE | 2017-12-22 15:59 | Electrocardiograph Report ---
[address] [place], [place] [address] Test Date: 2017-12-21 Pat Name: Aisha Hebert Department: 111 Room: [facility] Gender: F Fur Dresser: : 1950 Requested By: Lloyd Beach Order Number: [id number] Reading MD: Margy Najera Measurements Intervals [place] Rate: 95 P: 90 WV: 137 QRS: -11 QRSD: 85 T: 29 QT: 359 QTc: 412 Interpretive Statements SINUS RHYTHM WITH FREQUENT SUPRAVENTRICULAR PREMATURE COMPLEXES ABNORMAL RHYTHM ECG Electronically Signed On 12-22-2017 15:58:05 EDT by Margy Najera
[2017-12-22 16:02] LABS: Magnesium 2.1 mg/dL (1.6-2.6); Phosphorous 3.6 mg/dL (2.7-4.5)
[2017-12-22] MEDS: Norepinephrine 4 MG in D5% in Water 250 ML IVC SCH (16:22)
[2017-12-22] MEDS ORDERED: Clinimix E 5%-15% SOLUTION 2,000 ML with MVI, adult with vitamin K 10 ML IVC SCH (17:00)
[2017-12-22] MEDS: Metoclopramide 10 MG/2 ML VIAL IVP SCH ×2 (18:21→23:44)
[2017-12-22 20:56] LABS: Hematocrit 29.9 % (35.3-44.9)
[2017-12-22 21:02] LABS: INR 1.1; Prothrombin Time 11.9 Seconds (9.4-12.1)
[2017-12-22 21:05] LABS: Activated Partial Thrombo Time 33.5 Seconds (26.0-36.0)
[2017-12-23] MEDS: Levalbuterol Neb 0.63 MG/3 ML IH SCH ×4 (03:48→21:40)
[2017-12-23] MEDS: Pantoprazole 40 MG in 0.9 % Sodium Chloride Mini Bag 100 ML IVC SCH ×4 (04:09→19:33)
[2017-12-23] MEDS: Insulin LISPRO 300 UNITS/3 ML VIAL SQ SCH ×6 (04:33→23:22)
[2017-12-23 04:35] LABS: Basophils # 0.1 K/mcL (0.0-0.2); Basophils % 0.7 %; Eosinophils # 0.6 K/mcL (0.0-0.6); Eosinophils % 3.9 %; Hematocrit 28.5 % (35.3-44.9); Hemoglobin 9.4 g/dL (11.5-15.4); Immature Granulocytes % 0.7 % (0-4); Lymphocytes # 1.9 K/mcL (0.6-4.6); Lymphocytes % 12.8 %; Mean Corpuscular Hemoglobin 30.4 pg (28.0-33.3); Mean Corpuscular Volume 92.2 fL (83.0-100.0); Monocytes # 1.1 K/mcL (0.0-1.3); Monocytes % 7.6 %; Neutrophils # 10.7 K/mcL (1.6-8.9); Platelet Count 132 K/mcL (140-400); Red Blood Count 3.09 M/mcL (3.82-4.97); Red Cell Distribution Width 17.4 % (11.5-14.5); Segmented Neutrophils % 74.3 %
[2017-12-23 04:50] LABS: Alanine Aminotransferase 11 Units/L (7-52); Albumin/Globulin Ratio 0.7 (1.1-2.2); Alkaline Phosphatase 54 Units/L (34-104); Aspartate Amino Transferase 24 Units/L (13-39); BUN/Creatinine Ratio 112 (6-26); Bilirubin,Total 0.5 mg/dL (0.3-1.0); Blood Urea Nitrogen 73 mg/dL (8-23); Calcium 7.9 mg/dL (8.6-10.3); Carbon Dioxide 30 mEq/L (23-29); Chloride 104 mEq/L (98-107); Globulin 2.8 g/dL (2.4-3.5); Glucose 141 mg/dL (70-105); Magnesium 1.8 mg/dL (1.6-2.6); Osmolality,Calculated 308 (280-300); Phosphorous 2.3 mg/dL (2.7-4.5); Potassium 4.4 mEq/L (3.5-5.1); Sodium 137 mEq/L (136-145); Total Protein 4.8 g/dL (6.4-8.9); eGFR For African Americans > 60 (> 60); eGFR For Non-African Americans > 60 (> 60)
[2017-12-23] MEDS: *HR* Metoprolol 5 MG/5 ML VIAL IVP SCH ×5 (05:08→23:21)
[2017-12-23] MEDS: Metoclopramide 10 MG/2 ML VIAL IVP SCH ×4 (05:10→23:21)
[2017-12-23 05:39] LABS: VBG Ionized Calcium 1.16 mmol/L (1.15-1.35)
[2017-12-23] MEDS: Potassium Phosphate 44 MEQ in 0.9 % Sodium Chloride 250 ML IVPB PRN (05:44)
[2017-12-23] MEDS ORDERED: 0.9 % Sodium Chloride 1,000 ML IVC ONE (07:14)
[2017-12-23] MEDS: Piperacillin/Tazobactam 3.375 GM in 0.9 % Sodium Chloride Mini Bag 100 ML IVPB SCH (08:55)
[2017-12-23] MEDS: *HR* Digoxin 0.5 MG/2 ML AMPUL IVP SCH (09:08)
--- NOTE | 2017-12-23 09:47 | Pulmonology Progress Note ---
<Souleymane Red - Last Filed: 12/23/17 12:46> Date of Encounter: 12/23/17 Time of Encounter: 09:47 Assessment and Plan (1) Upper GI bleed Current Visit: Yes Status: Acute Patient did have surgery done on 12/[address] Chauhan where he did exploratory lysis of adhesions as well as celiac to me. This was successfully done to where they did remove one adhesion did not find a small bowel obstruction patient has still been nothing by mouth as well as with an NG tube placed. Today patient seemed to be more pale starting to be diaphoretic and tachycardic so they suctioned from the NG tube and noticed bright red blood coming from and they removed approximately 200 mL. That time CBC was ordered which showed hemoglobin of 5.9. Patient was then transferred to the ICU for further management. Prior to blood being given CBC showed hemoglobin of 6.0. Consulted Dr. Chauhan the general surgeon who recommended that we stabilize the patient and consider endoscopy. We did do bedside FAST exam via ultrasound which did seem to show positive fluid in the right upper quadrant. Due to this we ordered a stat abdomen and pelvis CT. Results are still pending. Cordis catheter with a triple lumen central venous catheter was successfully placed in the right groin please see procedure note for details. Patient was hypotensive in the 80s over 40 when he first arrived so patient did have a PICC line and norepi was started this is controlling her blood pressure well. Patient is still on norepinephrine CTA of the abdomen and pelvis was done due to FAST exam being positive this did show a active bleed in the greater curvature of the stomach. This was called to us from the radiologist. EGD was done 12/[address] Chauhan which showed erosions with clot formation but there is no active bleeding. He was able to see and the duodenum. Please refer to his note for further. Dr. Chauhan saw the patient today and said that he plans on doing EGD and PEG tube placement today. Also started Reglan to help with the ileus. Patient has not needed any more blood transfusions. Total of 10 units packed red blood cells transfused Continue to monitor NG tube for bright red blood. Protonix Carafate Monitor hemoglobin and then daily hemoglobins. Patient was mildly dehydrated did give 1 L IV bolus normal saline. Patient responded well. (2) Small bowel obstruction due to adhesions Current Visit: Yes Status: Acute Status post exploratory celiotomy with lysis of adhesions postop day #[address] Chauhan General surgery is following. Patient still has NG tube the plan is to replace with a PEG after EGD today. Continue TPN for nutritional support Patient no longer on antibiotics that she completed an 8 day course of Zosyn and linezolid Appreciate general surgery's recommendations. (3) Leukocytosis Current Visit: Yes Status: Acute Original leukocytosis had a white count of 33.3. The did normalize to 10.3 prior to coming to the ICU. After returning repeat was 18.4 this most likely stress reaction due to the anemia. Today it is normalizing to 14.5. Continue daily CBCs. Cultures were negative patient did finish a 8 day course of linezolid and Zosyn. Qualifiers: Leukocytosis type: bandemia Qualified Code(s): D72.825 - Bandemia (4) Respiratory acidosis Current Visit: Yes Status: Resolved Patient does have history of COPD does see pulmonology regularly VBG was done on the floor which did show respiratory acidosis with a PCO2 of 91 she does seem to be a chronic retainer at baseline. Patient's bicarbonate was 43. Patient does use BiPAP we needed and does help with patient's ABG as it does partially normalize. Goal oxygen saturation for patient is 88-92%. Continue CPAP as needed for her story distress if patient does desaturate consider intubation. (5) HTN (hypertension) Current Visit: No Status: Chronic Patient does have history of hypertension. Patient was hypotensive when she came here most likely just due to fluid deficit as well as blood product deficit. We will hold all hypertensive medications until patient's blood pressure normalizes. Levophed was stopped after initial day in the ICU. We will continue to monitor for hypotension. It should get better as patient is receiving both blood product and fluids. Qualifiers: Hypertension type: essential hypertension Qualified Code(s): I10 - Essential (primary) hypertension (6) Chronic diastolic heart failure Current Visit: No Status: Chronic Patient does have history of chronic diastolic heart failure. She has a normal EF of 65%. Will be due to initial and how much fluid resuscitation we will give Continue to monitor (7) Coronary artery disease Current Visit: Yes Status: Acute Patient does have history of coronary artery disease we will continue normal home medications Qualifiers: Coronary Disease-Associated Artery/Lesion type: [place] artery [place] vs. transplanted heart: [place] heart Associated angina: without angina Qualified Code(s): I25.10 - Atherosclerotic heart disease of [place] coronary artery without angina pectoris (8) Atrial fibrillation/flutter Current Visit: Yes Status: Acute Patient does have history of paroxysmal atrial fibrillation. Continue digoxin and metoprolol, rate controlled Patient is not on anticoagulation because history of alveolar hemorrhage. (9) Anemia Current Visit: Yes Status: Acute Patient did have a acutely anemic event. This most likely due to possible upper GI bleed. See above for treatment and plan. Qualifiers: Anemia type: unspecified type Qualified Code(s): D64.9 - Anemia, unspecified (10) Diabetes mellitus, type 2 Current Visit: No Status: Chronic Sliding scale insulin Accu-Cheks every 4 hours Acceptable glucose less than 180 Qualifiers: Diabetes mellitus jail insulin use: without jail use Diabetes mellitus complication status: with hyperglycemia Qualified Code(s): E11.65 - Type 2 diabetes mellitus with hyperglycemia (11) DVT prophylaxis Current Visit: No Status: Acute SCDs Subjective Principal diagnosis: Abdominal pain Interval history: Patient had no overnight events she did well. Patient still has no acute bleeding. Plan is for repeat EGD today. Patient was mildly dehydrated based on laboratory values with the BUN. Due to this we did give 1 L normal saline bolus. Patient responded well. Patient is still normotensive not needing any pressors. Still is on TPN. Objective PUL Vital signs: Last Vital Signs Temp 97.8 F 12/23/17 08:00 Pulse 89 12/23/17 09:00 Resp 18 12/23/17 09:00 BP 110/70 12/23/17 09:00 Pulse Ox 96 12/23/17 09:00 Results - Laboratory Findings CBC and BMP: 12/23/17 04:15 12/23/17 04:15 ABG ABG pH 7.46 pH Units (7.32-7.45) H 12/21/17 16:34 ABG pCO2 68 mmHg (35-45) H 12/21/17 16:34 ABG pO2 59 mmHg (85-104) L 12/21/17 16:34 ABG O2 Saturation 90 % (95-98) L 12/21/17 16:34 PT/INR, D-dimer PT 11.9 Seconds (9.4-12.1) 12/22/17 20:40 Abnormal lab findings: Abnormal lab results WBC 14.5 K/mcL (4.3-11.1) H 12/23/17 04:15 RBC 3.09 M/mcL (3.82-4.97) L 12/23/17 04:15 Hgb 9.4 g/dL (11.5-15.4) L 12/23/17 04:15 Hct 28.5 % (35.3-44.9) L 12/23/17 04:15 RDW 17.4 % (11.5-14.5) H 12/23/17 04:15 Plt Count 132 K/mcL (140-400) L 12/23/17 04:15 Neutrophils # 10.7 K/mcL (1.6-8.9) H 12/23/17 04:15 Reactive Lymphocytes Present (Not Present) A 12/20/17 04:07 Toxic Granulation Present (Not Present) A 12/16/17 07:05 Hypochromasia Present (Not Present) A 12/21/17 13:20 Anisocytosis 1+ (Not Present) A 12/21/17 13:20 Microcytosis Present (Not Present) A 12/20/17 04:07 Macrocytosis Present (Not Present) A 12/21/17 13:20 ABG pH 7.46 pH Units (7.32-7.45) H 12/21/17 16:34 ABG pCO2 68 mmHg (35-45) H 12/21/17 16:34 ABG pO2 59 mmHg (85-104) L 12/21/17 16:34 ABG HCO3 48 mEq/L (21-27) H 12/21/17 16:34 ABG Total CO2 50 mEq/L (20-26) H 12/21/17 16:34 ABG O2 Saturation 90 % (95-98) L 12/21/17 16:34 ABG Base Excess 22 mEq/L (-2 to 3) H 12/21/17 16:34 VBG pH 7.29 pH Units (7.32-7.42) L 12/19/17 14:23 VBG pCO2 91 mmHg (41-51) H* 12/19/17 14:23 VBG pO2 66 mmHg (25-50) H 12/19/17 14:23 VBG HCO3 43 mEq/L (21-27) H 12/19/17 14:23 Carbon Dioxide 30 mEq/L (23-29) H 12/23/17 04:15 BUN 73 mg/dL (8-23) H 12/23/17 04:15 BUN/Creatinine Ratio 112 (6-26) H 12/23/17 04:15 Glucose 141 mg/dL (70-105) H 12/23/17 04:15 POC Glucose 137 mg/dL (70-99) H 12/22/17 23:39 Calculated Osmolality 308 (280-300) H 12/23/17 04:15 Calcium 7.9 mg/dL (8.6-10.3) L 12/23/17 04:15 Phosphorus 2.3 mg/dL (2.7-4.5) L 12/23/17 04:15 Troponin I 0.04 ng/mL (< 0.04) H* 12/21/17 19:54 B-Natriuretic Peptide 319 pg/mL (Less than 100) H 12/15/17 03:50 Serum Total Protein 4.8 g/dL (6.4-8.9) L 12/23/17 04:15 Albumin 2.0 g/dL (3.5-5.7) L 12/23/17 04:15 Albumin/Globulin Ratio 0.7 (1.1-2.2) L 12/23/17 04:15 Prealbumin 9.4 mg/dL (17.0-34.0) L 12/14/17 13:58 Triglycerides 176 mg/dL (< 150) H 12/23/17 04:15 - Clinical Findings Intake & Output: Intake & Output 12/22/17 12/23/17 12/23/17 23:59 07:59 15:59 Intake Total 300 / 300 500 / 500 Output Total 925 / 925 1300 / 1300 Balance -625 / -625 -800 / -800 Weight 65.6 kg - VTE Documentation of Mechanical Device: Intermittent pneumatic compression device Consult Discharge Plan - Plan Referrals: Sloane Murphy DO [Primary Care Provider] - Edmund Ritchie [Partnered Physician] - 12/31/17 3:30 pm <Serafin Romero - Last Filed: 12/24/17 01:04> Date of Encounter: 12/24/17 Objective PUL Vital signs: Last Vital Signs Temp 98.2 F 12/23/17 23:00 Pulse 86 12/23/17 23:59 Resp 19 12/23/17 23:59 BP 117/72 12/23/17 23:59 Pulse Ox 95 12/23/17 23:59 Results - Laboratory Findings CBC and BMP: 12/23/17 15:00 12/23/17 04:15 ABG ABG pH 7.46 pH Units (7.32-7.45) H 12/21/17 16:34 ABG pCO2 68 mmHg (35-45) H 12/21/17 16:34 ABG pO2 59 mmHg (85-104) L 12/21/17 16:34 ABG O2 Saturation 90 % (95-98) L 12/21/17 16:34 PT/INR, D-dimer PT 11.9 Seconds (9.4-12.1) 12/22/17 20:40 Abnormal lab findings: Abnormal lab results WBC 14.5 K/mcL (4.3-11.1) H 12/23/17 04:15 RBC 3.09 M/mcL (3.82-4.97) L 12/23/17 04:15 Hgb 8.9 g/dL (11.5-15.4) L 12/23/17 15:00 Hct 26.8 % (35.3-44.9) L 12/23/17 15:00 RDW 17.4 % (11.5-14.5) H 12/23/17 04:15 Plt Count 132 K/mcL (140-400) L 12/23/17 04:15 Neutrophils # 10.7 K/mcL (1.6-8.9) H 12/23/17 04:15 Reactive Lymphocytes Present (Not Present) A 12/20/17 04:07 Toxic Granulation Present (Not Present) A 12/16/17 07:05 Hypochromasia Present (Not Present) A 12/21/17 13:20 Anisocytosis 1+ (Not Present) A 12/21/17 13:20 Microcytosis Present (Not Present) A 12/20/17 04:07 Macrocytosis Present (Not Present) A 12/21/17 13:20 ABG pH 7.46 pH Units (7.32-7.45) H 12/21/17 16:34 ABG pCO2 68 mmHg (35-45) H 12/21/17 16:34 ABG pO2 59 mmHg (85-104) L 12/21/17 16:34 ABG HCO3 48 mEq/L (21-27) H 12/21/17 16:34 ABG Total CO2 50 mEq/L (20-26) H 12/21/17 16:34 ABG O2 Saturation 90 % (95-98) L 12/21/17 16:34 ABG Base Excess 22 mEq/L (-2 to 3) H 12/21/17 16:34 VBG pH 7.29 pH Units (7.32-7.42) L 12/19/17 14:23 VBG pCO2 91 mmHg (41-51) H* 12/19/17 14:23 VBG pO2 66 mmHg (25-50) H 12/19/17 14:23 VBG HCO3 43 mEq/L (21-27) H 12/19/17 14:23 Carbon Dioxide 30 mEq/L (23-29) H 12/23/17 04:15 BUN 73 mg/dL (8-23) H 12/23/17 04:15 BUN/Creatinine Ratio 112 (6-26) H 12/23/17 04:15 Glucose 141 mg/dL (70-105) H 12/23/17 04:15 POC Glucose 137 mg/dL (70-99) H 12/22/17 23:39 Calculated Osmolality 308 (280-300) H 12/23/17 04:15 Calcium 7.9 mg/dL (8.6-10.3) L 12/23/17 04:15 Troponin I 0.04 ng/mL (< 0.04) H* 12/21/17 19:54 B-Natriuretic Peptide 319 pg/mL (Less than 100) H 12/15/17 03:50 Serum Total Protein 4.8 g/dL (6.4-8.9) L 12/23/17 04:15 Albumin 2.0 g/dL (3.5-5.7) L 12/23/17 04:15 Albumin/Globulin Ratio 0.7 (1.1-2.2) L 12/23/17 04:15 Prealbumin 9.4 mg/dL (17.0-34.0) L 12/14/17 13:58 Triglycerides 176 mg/dL (< 150) H 12/23/17 04:15 - Clinical Findings Intake & Output: Intake & Output 12/23/17 12/23/17 12/24/17 15:59 23:59 07:59 Intake Total 200 / 200 100 / 100 100 / 100 Output Total 900 / 900 3100 / 3100 Balance -700 / -700 -3000 / -3000 100 / 100 Weight 66.7 kg - Attending Attestation - Attending Attestation I saw and evaluated this patient and my medical decision-making was reviewed with the Resident Physician. I agree with the documented findings, disposition and treatment plan as described except to the extent set forth below. We independently had [id number] contact with the patient Patient seen and examined at bedside Labs, radiology, chart personally reviewed. WASHERY ENGINEER:Patient is alert awake and oriented following commands. 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 Cards: Patient is hemodynamically stable off vasopressor patien responded PRBC' s resuscitation the initial shock is due to hypovolemia . Patient is hemodynamically stable no further episode of bleeding FEN-GI: NPO for endoscopy . Will continue IV PPI BID and Sucralfate Renal:Labs and output reviewed ID: Just finished 8 day course of antibiotics for suspected pneumonia Heme/Onc: Coagulation profile normal Acute blood loss anemia responding well PRBC resuscitation. Endo: Glucose Monitored Integ/MSK: Skin Care per routine ICU Nursing Protocol to prevent ulcers. Lines: All lines examined without evidence of infection : Dispo: Critically ill high chance of cardiopulmonary decline CODE: Full Code
--- NOTE | 2017-12-23 09:48 | Event Note ---
Date of Encounter: 12/23/17 Time of Encounter: 09:45 Hgb stable, VSS at this time. No further episodes of bleeding. Pt is s/p transfusion 10 U PRBCs. Will plan for EGD and PEG this afternoon with Dr. Chauhan. NPO for procedure. Continue Reglan. Further recommendations pending planned procedures.
[2017-12-23] MEDS: *HR* FentaNYL (PF) 100 MCG/2 ML VIAL IVP PRN ×2 (10:27→20:37)
[2017-12-23] MEDS: Beclomethasone 80mcg MDI IH SCH ×2 (10:38→21:40)
[2017-12-23] MEDS ORDERED: *HR* Midazolam HCl 5 MG/5 ML VIAL IVP ONE ×3 (12:07→13:39)
--- NOTE | 2017-12-23 12:40 | Event Note ---
Date of Encounter: 12/23/17 Time of Encounter: 12:40 EGD performed. Evidence of erosions and stigmata of bleeding but no clot present within the stomach. PEG tube has been placed successfully. Place PEG tube to gravity bag drainage at this time. NG tube has also been removed. Continue TPN. Continue with Carafate as well.
[2017-12-23] MEDS ORDERED: *HR* FentaNYL (PF) 100 MCG/2 ML VIAL IVP ONE (13:39)
[2017-12-23 15:17] LABS: Hematocrit 26.8 % (35.3-44.9); Hemoglobin 8.9 g/dL (11.5-15.4)
[2017-12-23 16:04] LABS: Magnesium 1.9 mg/dL (1.6-2.6); Phosphorous 3.6 mg/dL (2.7-4.5)
[2017-12-23] MEDS ORDERED: Clinimix E 5%-15% SOLUTION 2,000 ML with MVI, adult with vitamin K 10 ML IVC SCH (17:00)
[2017-12-23] MEDS: Norepinephrine 4 MG in D5% in Water 250 ML IVC SCH (18:06)
[2017-12-23] MEDS: OXYCODONE Oral CONC 10 MG/0.5 ML ORAL.SYG SL PRN (19:51)
[2017-12-24] MEDS: *HR* FentaNYL (PF) 100 MCG/2 ML VIAL IVP PRN ×2 (00:10→11:22)
[2017-12-24] MEDS: Pantoprazole 40 MG in 0.9 % Sodium Chloride Mini Bag 100 ML IVC SCH ×3 (00:11→11:24)
[2017-12-24 03:13] LABS: Basophils # 0.1 K/mcL (0.0-0.2); Basophils % 0.5 %; Eosinophils # 0.5 K/mcL (0.0-0.6); Eosinophils % 3.4 %; Hemoglobin 8.8 g/dL (11.5-15.4); Immature Granulocytes % 0.8 % (0-4); Lymphocytes # 1.4 K/mcL (0.6-4.6); Lymphocytes % 9.8 %; Mean Corpuscular HGB Conc 32.6 g/dL (31.6-35.5); Mean Corpuscular Hemoglobin 30.7 pg (28.0-33.3); Mean Corpuscular Volume 94.1 fL (83.0-100.0); Mean Platelet Volume 10.3 fL (9.4-12.4); Monocytes # 1.2 K/mcL (0.0-1.3); Monocytes % 8.9 %; Neutrophils # 10.6 K/mcL (1.6-8.9); Platelet Count 131 K/mcL (140-400); Red Blood Count 2.87 M/mcL (3.82-4.97); Red Cell Distribution Width 17.7 % (11.5-14.5); Segmented Neutrophils % 76.6 %
[2017-12-24 03:22] LABS: VBG Ionized Calcium 1.16 mmol/L (1.15-1.35)
[2017-12-24 03:36] LABS: Alanine Aminotransferase 19 Units/L (7-52); Albumin 2.2 g/dL (3.5-5.7); Albumin/Globulin Ratio 0.8 (1.1-2.2); Alkaline Phosphatase 68 Units/L (34-104); Aspartate Amino Transferase 34 Units/L (13-39); BUN/Creatinine Ratio 93 (6-26); Bilirubin,Total 0.6 mg/dL (0.3-1.0); Blood Urea Nitrogen 50 mg/dL (8-23); Calcium 8.2 mg/dL (8.6-10.3); Carbon Dioxide 26 mEq/L (23-29); Chloride 107 mEq/L (98-107); Globulin 2.9 g/dL (2.4-3.5); Glucose 148 mg/dL (70-105); Magnesium 1.6 mg/dL (1.6-2.6); Osmolality,Calculated 300 (280-300); Phosphorous 2.9 mg/dL (2.7-4.5); Potassium 4.8 mEq/L (3.5-5.1); Sodium 137 mEq/L (136-145); Total Protein 5.1 g/dL (6.4-8.9); eGFR For African Americans > 60 (> 60); eGFR For Non-African Americans > 60 (> 60)
[2017-12-24] MEDS: Insulin LISPRO 300 UNITS/3 ML VIAL SQ SCH ×5 (03:41→20:00)
[2017-12-24] MEDS: Levalbuterol Neb 0.63 MG/3 ML IH SCH ×4 (03:46→21:48)
[2017-12-24] MEDS: *HR* Metoprolol 5 MG/5 ML VIAL IVP SCH ×3 (05:22→16:53)
[2017-12-24] MEDS: Metoclopramide 10 MG/2 ML VIAL IVP SCH ×2 (05:22→22:51)
[2017-12-24] MEDS: *HR* Digoxin 0.5 MG/2 ML AMPUL IVP SCH (08:21)
--- NOTE | 2017-12-24 10:39 | Pulmonology Progress Note ---
<Souleymane Red - Last Filed: 12/24/17 11:15> Date of Encounter: 12/24/17 Time of Encounter: 10:39 Assessment and Plan (1) Upper GI bleed Current Visit: Yes Status: Resolved Patient did have surgery done on 12/[address] Chauhan where he did exploratory lysis of adhesions as well as celiac to me. This was successfully done to where they did remove one adhesion did not find a small bowel obstruction patient has still been nothing by mouth as well as with an NG tube placed. Today patient seemed to be more pale starting to be diaphoretic and tachycardic so they suctioned from the NG tube and noticed bright red blood coming from and they removed approximately 200 mL. That time CBC was ordered which showed hemoglobin of 5.9. Patient was then transferred to the ICU for further management. Prior to blood being given CBC showed hemoglobin of 6.0. Consulted Dr. Chauhan the general surgeon who recommended that we stabilize the patient and consider endoscopy. We did do bedside FAST exam via ultrasound which did seem to show positive fluid in the right upper quadrant. Due to this we ordered a stat abdomen and pelvis CT. Results are still pending. Cordis catheter with a triple lumen central venous catheter was successfully placed in the right groin please see procedure note for details. Patient was hypotensive in the 80s over 40 when he first arrived so patient did have a PICC line and norepi was started this is controlling her blood pressure well. Patient is still on norepinephrine CTA of the abdomen and pelvis was done due to FAST exam being positive this did show a active bleed in the greater curvature of the stomach. This was called to us from the radiologist. EGD was done 12/[address] Chauhan which showed erosions with clot formation but there is no active bleeding. He was able to see and the duodenum. Please refer to his note for further. EGD and PEG done yesterday location's. Started on Reglan change to every 12 hours. Total of 10 units packed red blood cells transfused Protonix push every 12 Carafate Daily CBCs Changed Reglan from every 6 hours to every 12 hours per surgery. Transferring patient to telemetry floor for further evaluation. (2) Small bowel obstruction due to adhesions Current Visit: Yes Status: Acute Status post exploratory celiotomy with lysis of adhesions postop day #[address] Chauhan General surgery is following. PEG tube placed Continue TPN for nutritional support Patient no longer on antibiotics that she completed an 8 day course of Zosyn and linezolid Appreciate general surgery's recommendations. (3) Leukocytosis Current Visit: Yes Status: Acute Original leukocytosis had a white count of 33.3. The did normalize to 10.3 prior to coming to the ICU. After returning repeat was 18.4 this most likely stress reaction due to the anemia. Today it is normalizing to 13.8. Continue daily CBCs. Cultures were negative patient did finish a 8 day course of linezolid and Zosyn. Qualifiers: Leukocytosis type: bandemia Qualified Code(s): D72.825 - Bandemia (4) Respiratory acidosis Current Visit: Yes Status: Resolved Patient does have history of COPD does see pulmonology regularly VBG was done on the floor which did show respiratory acidosis with a PCO2 of 91 she does seem to be a chronic retainer at baseline. Patient's bicarbonate was 43. Patient does use BiPAP we needed and does help with patient's ABG as it does partially normalize. Goal oxygen saturation for patient is 88-92%. Continue CPAP as needed for her story distress if patient does desaturate consider intubation. (5) HTN (hypertension) Current Visit: No Status: Chronic Patient does have history of hypertension. Patient was hypotensive when she came here most likely just due to fluid deficit as well as blood product deficit. We will hold all hypertensive medications until patient's blood pressure normalizes. Levophed was stopped after initial day in the ICU. We will continue to monitor for hypotension. It should get better as patient is receiving both blood product and fluids Started patient back on Lopressor. Is now 5 mg.. Qualifiers: Hypertension type: essential hypertension Qualified Code(s): I10 - Essential (primary) hypertension (6) Chronic diastolic heart failure Current Visit: No Status: Chronic Patient does have history of chronic diastolic heart failure. She has a normal EF of 65%. Will be due to initial and how much fluid resuscitation we will give Continue to monitor (7) Coronary artery disease Current Visit: Yes Status: Acute Patient does have history of coronary artery disease we will continue normal home medications Qualifiers: Coronary Disease-Associated Artery/Lesion type: [place] artery [place] vs. transplanted heart: [place] heart Associated angina: without angina Qualified Code(s): I25.10 - Atherosclerotic heart disease of [place] coronary artery without angina pectoris (8) Atrial fibrillation/flutter Current Visit: Yes Status: Acute Patient does have history of paroxysmal atrial fibrillation. Continue digoxin and metoprolol, rate controlled Patient is not on anticoagulation because history of alveolar hemorrhage. (9) Anemia Current Visit: Yes Status: Acute Patient did have a acutely anemic event. This most likely due to possible upper GI bleed. See above for treatment and plan. Qualifiers: Anemia type: unspecified type Qualified Code(s): D64.9 - Anemia, unspecified (10) Diabetes mellitus, type 2 Current Visit: No Status: Chronic Sliding scale insulin Accu-Cheks every 4 hours Acceptable glucose less than 180 Qualifiers: Diabetes mellitus half-way insulin use: without half-way use Diabetes mellitus complication status: with hyperglycemia Qualified Code(s): E11.65 - Type 2 diabetes mellitus with hyperglycemia (11) DVT prophylaxis Current Visit: No Status: Acute SCDs Subjective Principal diagnosis: Abdominal pain Interval history: Patient had no overnight events she did well. Patient still has no acute bleeding. Patient had repeat EGD yesterday where PEG tube was placed. There is still no active bleeding. Patient has been stable overnight she does require CPAP. Plan on transferring to telemetry bed on the second floor. Objective PUL Vital signs: Last Vital Signs Temp 98.3 F 12/24/17 09:00 Pulse 115 12/24/17 09:00 Resp 20 12/24/17 09:00 BP 114/69 12/24/17 09:00 Pulse Ox 95 12/24/17 09:00 General appearance: no acute distress Eyes: nonicteric ENT: oropharynx moist Neck: supple Effort: normal Auscultation: bilateral: clear Cardiovascular: regular rate and rhythm Gastrointestinal: normoactive bowel sounds, soft, non-tender, non-distended Integumentary: normal Extremities: no cyanosis, no edema, no clubbing Musculoskeletal: no deformities, ROM normal normal mental status, non-focal exam, pupils equal and round, motor strength normal and symmetric Results - Laboratory Findings CBC and BMP: 12/24/17 03:00 12/24/17 03:00 ABG ABG pH 7.46 pH Units (7.32-7.45) H 12/21/17 16:34 ABG pCO2 68 mmHg (35-45) H 12/21/17 16:34 ABG pO2 59 mmHg (85-104) L 12/21/17 16:34 ABG O2 Saturation 90 % (95-98) L 12/21/17 16:34 PT/INR, D-dimer PT 11.9 Seconds (9.4-12.1) 12/22/17 20:40 Abnormal lab findings: Abnormal lab results WBC 13.8 K/mcL (4.3-11.1) H 12/24/17 03:00 RBC 2.87 M/mcL (3.82-4.97) L 12/24/17 03:00 Hgb 8.8 g/dL (11.5-15.4) L 12/24/17 03:00 Hct 27.0 % (35.3-44.9) L 12/24/17 03:00 RDW 17.7 % (11.5-14.5) H 12/24/17 03:00 Plt Count 131 K/mcL (140-400) L 12/24/17 03:00 Neutrophils # 10.6 K/mcL (1.6-8.9) H 12/24/17 03:00 Reactive Lymphocytes Present (Not Present) A 12/20/17 04:07 Toxic Granulation Present (Not Present) A 12/16/17 07:05 Hypochromasia Present (Not Present) A 12/21/17 13:20 Anisocytosis 1+ (Not Present) A 12/21/17 13:20 Microcytosis Present (Not Present) A 12/20/17 04:07 Macrocytosis Present (Not Present) A 12/21/17 13:20 ABG pH 7.46 pH Units (7.32-7.45) H 12/21/17 16:34 ABG pCO2 68 mmHg (35-45) H 12/21/17 16:34 ABG pO2 59 mmHg (85-104) L 12/21/17 16:34 ABG HCO3 48 mEq/L (21-27) H 12/21/17 16:34 ABG Total CO2 50 mEq/L (20-26) H 12/21/17 16:34 ABG O2 Saturation 90 % (95-98) L 12/21/17 16:34 ABG Base Excess 22 mEq/L (-2 to 3) H 12/21/17 16:34 VBG pH 7.29 pH Units (7.32-7.42) L 12/19/17 14:23 VBG pCO2 91 mmHg (41-51) H* 12/19/17 14:23 VBG pO2 66 mmHg (25-50) H 12/19/17 14:23 VBG HCO3 43 mEq/L (21-27) H 12/19/17 14:23 BUN 50 mg/dL (8-23) H 12/24/17 03:00 Creatinine 0.54 mg/dL (0.60-1.20) L 12/24/17 03:00 BUN/Creatinine Ratio 93 (6-26) H 12/24/17 03:00 Glucose 148 mg/dL (70-105) H 12/24/17 03:00 POC Glucose 170 mg/dL (70-99) H 12/23/17 23:12 Calcium 8.2 mg/dL (8.6-10.3) L 12/24/17 03:00 Troponin I 0.04 ng/mL (< 0.04) H* 12/21/17 19:54 B-Natriuretic Peptide 319 pg/mL (Less than 100) H 12/15/17 03:50 Serum Total Protein 5.1 g/dL (6.4-8.9) L 12/24/17 03:00 Albumin 2.2 g/dL (3.5-5.7) L 12/24/17 03:00 Albumin/Globulin Ratio 0.8 (1.1-2.2) L 12/24/17 03:00 Prealbumin 9.4 mg/dL (17.0-34.0) L 12/14/17 13:58 Triglycerides 176 mg/dL (< 150) H 12/23/17 04:15 - Clinical Findings Intake & Output: Intake & Output 12/23/17 12/24/17 12/24/17 23:59 07:59 15:59 Intake Total 100 / 100 450 / 450 Output Total 3100 / 3100 1300 / 1300 Balance -3000 / -3000 -850 / -850 Weight 66.7 kg - VTE Documentation of Mechanical Device: Intermittent pneumatic compression device Consult Discharge Plan - Plan Referrals: Sloane Murphy DO [Primary Care Provider] - Edmund Ritchie [Partnered Physician] - 12/31/17 3:30 pm <Serafin Romero S - Last Filed: 12/24/17 22:00> Date of Encounter: 12/24/17 Objective PUL Vital signs: Last Vital Signs Temp 99.9 F H 12/24/17 14:31 Pulse 93 12/24/17 14:31 Resp 20 12/24/17 21:50 BP 129/70 12/24/17 14:31 Pulse Ox 96 12/24/17 21:50 Results - Laboratory Findings CBC and BMP: 12/24/17 03:00 12/24/17 03:00 ABG ABG pH 7.46 pH Units (7.32-7.45) H 12/21/17 16:34 ABG pCO2 68 mmHg (35-45) H 12/21/17 16:34 ABG pO2 59 mmHg (85-104) L 12/21/17 16:34 ABG O2 Saturation 90 % (95-98) L 12/21/17 16:34 PT/INR, D-dimer PT 11.9 Seconds (9.4-12.1) 12/22/17 20:40 Abnormal lab findings: Abnormal lab results WBC 13.8 K/mcL (4.3-11.1) H 12/24/17 03:00 RBC 2.87 M/mcL (3.82-4.97) L 12/24/17 03:00 Hgb 8.8 g/dL (11.5-15.4) L 12/24/17 03:00 Hct 27.0 % (35.3-44.9) L 12/24/17 03:00 RDW 17.7 % (11.5-14.5) H 12/24/17 03:00 Plt Count 131 K/mcL (140-400) L 12/24/17 03:00 Neutrophils # 10.6 K/mcL (1.6-8.9) H 12/24/17 03:00 Reactive Lymphocytes Present (Not Present) A 12/20/17 04:07 Toxic Granulation Present (Not Present) A 12/16/17 07:05 Hypochromasia Present (Not Present) A 12/21/17 13:20 Anisocytosis 1+ (Not Present) A 12/21/17 13:20 Microcytosis Present (Not Present) A 12/20/17 04:07 Macrocytosis Present (Not Present) A 12/21/17 13:20 ABG pH 7.46 pH Units (7.32-7.45) H 12/21/17 16:34 ABG pCO2 68 mmHg (35-45) H 12/21/17 16:34 ABG pO2 59 mmHg (85-104) L 12/21/17 16:34 ABG HCO3 48 mEq/L (21-27) H 12/21/17 16:34 ABG Total CO2 50 mEq/L (20-26) H 12/21/17 16:34 ABG O2 Saturation 90 % (95-98) L 12/21/17 16:34 ABG Base Excess 22 mEq/L (-2 to 3) H 12/21/17 16:34 VBG pH 7.29 pH Units (7.32-7.42) L 12/19/17 14:23 VBG pCO2 91 mmHg (41-51) H* 12/19/17 14:23 VBG pO2 66 mmHg (25-50) H 12/19/17 14:23 VBG HCO3 43 mEq/L (21-27) H 12/19/17 14:23 BUN 50 mg/dL (8-23) H 12/24/17 03:00 Creatinine 0.54 mg/dL (0.60-1.20) L 12/24/17 03:00 BUN/Creatinine Ratio 93 (6-26) H 12/24/17 03:00 Glucose 148 mg/dL (70-105) H 12/24/17 03:00 POC Glucose 170 mg/dL (70-99) H 12/23/17 23:12 Calcium 8.2 mg/dL (8.6-10.3) L 12/24/17 03:00 Troponin I 0.04 ng/mL (< 0.04) H* 12/21/17 19:54 B-Natriuretic Peptide 319 pg/mL (Less than 100) H 12/15/17 03:50 Serum Total Protein 5.1 g/dL (6.4-8.9) L 12/24/17 03:00 Albumin 2.2 g/dL (3.5-5.7) L 12/24/17 03:00 Albumin/Globulin Ratio 0.8 (1.1-2.2) L 12/24/17 03:00 Prealbumin 9.4 mg/dL (17.0-34.0) L 12/14/17 13:58 Triglycerides 176 mg/dL (< 150) H 12/23/17 04:15 - Clinical Findings Intake & Output: Intake & Output 12/24/17 12/24/17 12/24/17 07:59 15:59 23:59 Intake Total 450 / 450 200 / 200 Output Total 1300 / 1300 1150 / 1150 600 / 600 Balance -850 / -850 -950 / -950 -600 / -600 - Attending Attestation Attending Attestation I saw and evaluated this patient and my medical decision-making was reviewed with the Resident Physician. I agree with the documented findings, disposition and treatment plan as described except to the extent set forth below. We independently had [id number] contact with the patient Patient seen and examined at bedside Labs, radiology, chart personally reviewed. SPREADER OPERATOR:Patient is alert awake and oriented following commands. 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 Will need home BIPAP qualification Cards: Patient is hemodynamically stable off vasopressor patien responded PRBC' s resuscitation the initial shock is due to hypovolemia . Patient is hemodynamically stable no further episode of bleeding . HandH stable for past 48 hrs FEN-GI: Advance diet as tolerated . IV PPI BID and Sucralfate Renal:Labs and output reviewed ID: Just finished 8 day course of antibiotics for suspected pneumonia , no active infectious issues Heme/Onc: H and H stable Endo: Glucose Monitored Integ/MSK: Skin Care per routine ICU Nursing Protocol to prevent ulcers. Lines: All lines examined without evidence of infection : Dispo: Patient is stable enough can be send to medical telemetry CODE: Full Code
[2017-12-24] MEDS ORDERED: *HR* Metoprolol 5 MG/5 ML VIAL IVP SCH (10:41)
[2017-12-24] MEDS: Beclomethasone 80mcg MDI IH SCH ×2 (10:44→21:48)
[2017-12-24] MEDS ORDERED: Metoclopramide 10 MG/2 ML VIAL IVP SCH (10:45)
--- NOTE | 2017-12-24 11:05 | General Surgery Progress Note ---
<Torie Poole - Last Filed: 12/24/17 13:26> Date of Encounter: 12/24/17 Time of Encounter: 11:05 - Assessment and Plan (1) Small bowel obstruction due to adhesions Current Visit: Yes Status: Acute Date of procedure: 12/15/17 Pre-op diagnosis: Partial small bowel obstruction Post-op diagnosis: other (Pseduo-obstruction) Procedure: Exploratory celiotomy with lysis of adhesion Anesthesia: GETA Surgeon: Nadeem Chauhan POD# 9 as above. Noted orders to transfer out of ICU to 2A, 2N, or 2NE s/p EGD and PEG placement 12/23/2017. PEG to gravity after procedure. Plan: Wound care; place wound vac today continue supportive care and discomfort management continue antiemetics and pain control continue Peg to gravity, may placed to suction if patient has vomiting. OK to clamp PEG at this time continue Protonix and drip and Carafate per Peg tube NPO, continue TPN rectal tube per primary team continue Peck for accurate I&O Transfuse PRBC per primary team tachycardia/atrial fibrillation/flutter per critical care. Current heart rate 116. Per bedside RN the metoprolol has been increased. (2) Anemia Current Visit: Yes Status: Acute Hemoglobin stable, vital signs stable, no further episodes of bleeding, patient has S/P 10 unit PRBC's transfuse the submission. S/P EGD 12/23/17 which noted evidence of her erosions and stigmata of bleeding no clot present within the stomach. Recommended to continue Carafate. Qualifiers: Anemia type: unspecified type Qualified Code(s): D64.9 - Anemia, unspecified (3) Upper GI bleed Current Visit: Yes Status: Resolved See a/p above Subjective Narrative: is at bedside. Aisha states she feels a little nauseated, she states a burning/gnawing pain in the upper right and lower left quadrant of her abdomen. She reports feeling short of breath, having a cough that is productive but she is unable to bring sputum out. She denies chest pain. She denies fevers or chills. Objective Vital Signs - Last 8 Hours Temp Pulse Resp BP Pulse Ox 12/24/17 10:48 20 95 12/24/17 09:00 98.3 F 115 20 114/69 95 12/24/17 08:00 98.3 F 115 20 105/68 95 12/24/17 07:00 114 20 102/62 95 12/24/17 06:00 111 12 110/66 97 12/24/17 05:00 116 22 113/72 100 12/24/17 04:00 98.3 F 94 23 116/64 100 12/24/17 03:46 20 96 12/24/17 03:08 101 Intake and Output 12/23/17 12/24/17 12/24/17 23:59 07:59 15:59 Intake Total 100 / 100 450 / 450 Output Total 3100 / 3100 1300 / 1300 Balance -3000 / -3000 -850 / -850 Intake: IV Fluids 100 / 100 450 / 450 Protonix 40 MG In 0.9 % Sodium 100 / 100 200 / 200 Chloride (Mini-Bag +) 100 ML @ 20 mls/hr IVC .Q5H [facility] Rx#: [id number] Intralipid 20% 250 ML @ 21 mls/ 250 / 250 hr IVPB DAILY@1700 [facility] Rx#: [id number] Oral 0 / 0 0 / 0 Output: Rectal Tube 600 / 600 100 / 100 Catheter 2500 / 2500 1200 / 1200 Gastric Drainage 0 / 0 0 / 0 Other: Weight 66.7 kg Blood Glucose* 170 132 VITAL SIGNS: Reviewed. See [facility] GENERAL: In no apparent distress. Generalized ill appearing. HEENT: Normocephalic, atraumatic, pupils are equal and reactive, extraocular motions intact, oropharynx is pink and dry , there is no neck adenopathy or JVD noted. CHEST/RESPIRATORY: The thorax is free from signs of trauma. Lung sounds: Pt is coughing upon my entry of the room. Wet breath sounds. She is unable to expel sputum. Rhonchi noted throughout, decreased breath sounds, decreased respiratory effort CARDIAC: tachycardic. Normal S1 and S2.. VASCULAR: No Edema. 2+ peripheral pulses. ABDOMEN: soft, expected postoperative tenderness, absent bowel sounds INCISION: inferior aspect is open. WOUNDS/DRAINS: rectal tube with approximately 250 ML's thin green material, Peg tube to gravity with approximately 50 ML bilious material, Peck catheter in place. MUSCULOSKELETAL: generalized weakness. NEUROLOGIC EXAM: Alert and oriented x 3. Speech normal. Follows commands. PSYCHIATRIC: Mood normal. SKIN: No rash or lesions. - Labs 12/24/17 03:00 12/24/17 03:00 Diabetes panel 12/24/17 Range/Units 03:00 Sodium 137 (136-145) mEq/L Potassium 4.8 (3.5-5.1) mEq/L Chloride 107 (98-107) mEq/L Carbon Dioxide 26 (23-29) mEq/L BUN 50 H (8-23) mg/dL Creatinine 0.54 L (0.60-1.20) mg/dL Glucose 148 H (70-105) mg/dL Calcium 8.2 L (8.6-10.3) mg/dL AST 34 (13-39) Units/L ALT 19 (7-52) Units/L Alkaline Phosphatase 68 (34-104) Units/L Albumin 2.2 L (3.5-5.7) g/dL Calcium panel 12/23/17 12/24/17 Range/Units 15:00 03:00 Calcium 8.2 L (8.6-10.3) mg/dL Phosphorus 3.6 2.9 (2.7-4.5) mg/dL Albumin 2.2 L (3.5-5.7) g/dL Pituitary panel 12/24/17 Range/Units 03:00 Sodium 137 (136-145) mEq/L Potassium 4.8 (3.5-5.1) mEq/L Chloride 107 (98-107) mEq/L Carbon Dioxide 26 (23-29) mEq/L BUN 50 H (8-23) mg/dL Creatinine 0.54 L (0.60-1.20) mg/dL Glucose 148 H (70-105) mg/dL Calcium 8.2 L (8.6-10.3) mg/dL Adrenal panel 12/24/17 Range/Units 03:00 Sodium 137 (136-145) mEq/L Potassium 4.8 (3.5-5.1) mEq/L Chloride 107 (98-107) mEq/L Carbon Dioxide 26 (23-29) mEq/L BUN 50 H (8-23) mg/dL Creatinine 0.54 L (0.60-1.20) mg/dL Glucose 148 H (70-105) mg/dL Calcium 8.2 L (8.6-10.3) mg/dL Total Bilirubin 0.6 (0.3-1.0) mg/dL AST 34 (13-39) Units/L ALT 19 (7-52) Units/L Alkaline Phosphatase 68 (34-104) Units/L Albumin 2.2 L (3.5-5.7) g/dL - VTE Documentation of Mechanical Device: Intermittent pneumatic compression device Consult Discharge Plan - Plan Referrals: Sloane Murphy DO [Primary Care Provider] - 01/03/18 4:15 pm Edmund Ritchie [Partnered Physician] - 12/31/17 3:30 pm <Nadeem Chauhan - Last Filed: 12/28/17 07:01> Date of Encounter: 12/24/17 Objective Vital Signs - Last 8 Hours Temp Pulse Resp BP Pulse Ox 12/28/17 03:40 16 98 12/28/17 03:17 99.2 F 110 16 104/67 97 12/27/17 23:32 115 16 96/56 96 Intake and Output 12/27/17 12/27/17 12/28/17 15:59 23:59 07:59 Intake Total 260 / 260 260 / 260 Output Total 450 / 450 1600 / 1600 500 / 500 Balance -450 / -450 -1340 / -1340 -240 / -240 Intake: IV Fluids 260 / 260 260 / 260 Maxipime 1,000 MG In Water for inj. (sterile) 10 ML @ 300 mls/ hr IVP Q12HR [facility] Rx#:[id number] Intralipid 20% 250 ML @ 21 mls/ 250 / 250 hr IVPB DAILY@1700 [facility] Rx#: [id number] Vancocin 1,000 MG In 0.9 % 250 / 250 Sodium Chloride 250 ML @ 167 mls/hr IVPB Q12H [facility] Rx#: [id number] Output: Stool 100 / 100 150 / 150 Catheter 450 / 450 1500 / 1500 350 / 350 Urethral (Peck) 650 / 650 Other: Stool Consistency liquid Stool Color Green Weight 64.5 kg Blood Glucose* 133 149 143 Patient Weight 12/28/17 23:59 Weight 64.5 kg - Labs 12/27/17 11:50 12/28/17 05:53 Diabetes panel 12/28/17 Range/Units 05:53 Sodium 134 L (136-145) mEq/L Potassium 3.9 (3.5-5.1) mEq/L Chloride 102 (98-107) mEq/L Carbon Dioxide 27 (23-29) mEq/L BUN 44 H (8-23) mg/dL Creatinine 0.74 (0.60-1.20) mg/dL Glucose 123 H (70-105) mg/dL Calcium 8.0 L (8.6-10.3) mg/dL Calcium panel 12/28/17 Range/Units 05:53 Calcium 8.0 L (8.6-10.3) mg/dL Phosphorus 3.6 (2.7-4.5) mg/dL Pituitary panel 12/28/17 Range/Units 05:53 Sodium 134 L (136-145) mEq/L Potassium 3.9 (3.5-5.1) mEq/L Chloride 102 (98-107) mEq/L Carbon Dioxide 27 (23-29) mEq/L BUN 44 H (8-23) mg/dL Creatinine 0.74 (0.60-1.20) mg/dL Glucose 123 H (70-105) mg/dL Calcium 8.0 L (8.6-10.3) mg/dL Adrenal panel 12/28/17 Range/Units 05:53 Sodium 134 L (136-145) mEq/L Potassium 3.9 (3.5-5.1) mEq/L Chloride 102 (98-107) mEq/L Carbon Dioxide 27 (23-29) mEq/L BUN 44 H (8-23) mg/dL Creatinine 0.74 (0.60-1.20) mg/dL Glucose 123 H (70-105) mg/dL Calcium 8.0 L (8.6-10.3) mg/dL - Attending Attestation I have personally performed a face to face evaluation on this patient. I have reviewed and agree with the care plan. History and Exam by me shows: I reviewed the above assessment and evaluation and agree with the above plan.
[2017-12-24] MEDS ORDERED: Saliva Stimulant 100ml BOTTLE PO PRN (11:29)
[2017-12-24] MEDS ORDERED: *HR* Promethazine 25 MG/ML VIAL IVP PRN (11:29)
[2017-12-24] MEDS ORDERED: Naloxone 0.4 MG/ML INJ IVP PRN (11:29)
[2017-12-24] MEDS ORDERED: D5% in Water 1,000 ML IVC PRN (11:29)
[2017-12-24] MEDS ORDERED: D10% in Water 500 ML IVC PRN (11:29)
[2017-12-24] MEDS ORDERED: Dextrose Gel 15 GM/37.5 ML TUBE PO PRN ×2 (11:29)
[2017-12-24] MEDS ORDERED: *HR* Dextrose 50 % in Water (Syg) 50 ML SYRINGE IVP PRN (11:29)
[2017-12-24] MEDS ORDERED: Clinimix E 5%-15% SOLUTION 2,000 ML with MVI, adult with vitamin K 10 ML IVC SCH (11:29)
[2017-12-24] MEDS: OXYCODONE Oral CONC 10 MG/0.5 ML ORAL.SYG SL PRN (14:46)
[2017-12-24] MEDS ORDERED: Acetaminophen IV 1,000 MG/100 ML INFUS..BTL IVPB ONE (15:05)
[2017-12-24] MEDS: Pantoprazole 40 MG VIAL IVP SCH (16:53)
[2017-12-24] MEDS ORDERED: Clinimix E 5%-15% SOLUTION 2,000 ML with MVI, adult with vitamin K 10 ML, Magnesium S... IVC SCH (17:00)
[2017-12-24] MEDS: BENZOCAINE/MENTHOL 1 LOZENGE (BAG OF 6) MM PRN (17:27)
[2017-12-24] MEDS ORDERED: Pantoprazole 40 MG VIAL IVP SCH (18:00)
[2017-12-24] MEDS ORDERED: Acetaminophen IV 1,000 MG/100 ML INFUS..BTL IVPB PRN (21:00)
[2017-12-24 23:34] LABS: VBG Ionized Calcium 1.21 mmol/L (1.15-1.35)
[2017-12-25] MEDS: *HR* Metoprolol 5 MG/5 ML VIAL IVP SCH ×5 (00:25→23:42)
[2017-12-25] MEDS: OXYCODONE Oral CONC 10 MG/0.5 ML ORAL.SYG SL PRN ×4 (03:05→23:03)
[2017-12-25] MEDS: BENZOCAINE/MENTHOL 1 LOZENGE (BAG OF 6) MM PRN (03:08)
[2017-12-25] MEDS: Levalbuterol Neb 0.63 MG/3 ML IH SCH ×4 (04:29→23:05)
[2017-12-25] MEDS: Pantoprazole 40 MG VIAL IVP SCH ×2 (06:19→18:30)
[2017-12-25] MEDS: Insulin LISPRO 300 UNITS/3 ML VIAL SQ SCH ×7 (06:19→23:47)
[2017-12-25 06:53] LABS: Basophils # 0.1 K/mcL (0.0-0.2); Basophils % 0.5 %; Eosinophils # 0.2 K/mcL (0.0-0.6); Hematocrit 27.1 % (35.3-44.9); Hemoglobin 8.5 g/dL (11.5-15.4); Immature Granulocytes % 0.6 % (0-4); Lymphocytes # 1.1 K/mcL (0.6-4.6); Lymphocytes % 9.5 %; Mean Corpuscular HGB Conc 31.4 g/dL (31.6-35.5); Mean Corpuscular Hemoglobin 29.3 pg (28.0-33.3); Mean Corpuscular Volume 93.4 fL (83.0-100.0); Mean Platelet Volume 10.4 fL (9.4-12.4); Monocytes # 1.2 K/mcL (0.0-1.3); Monocytes % 9.7 %; Neutrophils # 9.2 K/mcL (1.6-8.9); Platelet Count 168 K/mcL (140-400); Red Cell Distribution Width 17.7 % (11.5-14.5); Segmented Neutrophils % 77.7 %
[2017-12-25 07:38] LABS: Alanine Aminotransferase 26 Units/L (7-52); Albumin 2.2 g/dL (3.5-5.7); Albumin/Globulin Ratio 0.7 (1.1-2.2); Alkaline Phosphatase 84 Units/L (34-104); Aspartate Amino Transferase 35 Units/L (13-39); BUN/Creatinine Ratio 64 (6-26); Blood Urea Nitrogen 30 mg/dL (8-23); Calcium 8.3 mg/dL (8.6-10.3); Carbon Dioxide 27 mEq/L (23-29); Chloride 102 mEq/L (98-107); Globulin 3.2 g/dL (2.4-3.5); Glucose 178 mg/dL (70-105); Osmolality,Calculated 287 (280-300); Phosphorous 2.9 mg/dL (2.7-4.5); Potassium 4.9 mEq/L (3.5-5.1); Sodium 133 mEq/L (136-145); Total Protein 5.4 g/dL (6.4-8.9); eGFR For African Americans > 60 (> 60); eGFR For Non-African Americans > 60 (> 60)
[2017-12-25 08:36] LABS: Magnesium 1.4 mg/dL (1.6-2.6)
[2017-12-25] MEDS: Beclomethasone 80mcg MDI IH SCH ×2 (09:20→23:06)
[2017-12-25] MEDS: *HR* Digoxin 0.5 MG/2 ML AMPUL IVP SCH (09:47)
[2017-12-25] MEDS: Metoclopramide 10 MG/2 ML VIAL IVP SCH ×2 (09:51→22:54)
[2017-12-25] MEDS ORDERED: Furosemide 40 MG/4 ML VIAL IVP ONE (10:29)
--- NOTE | 2017-12-25 10:39 | General Surgery Progress Note ---
Date of Encounter: 12/25/17 Time of Encounter: 07:20 - Assessment and Plan (1) Small bowel obstruction Current Visit: Yes Status: Acute Hospital Day #11 POD #10 s/p exploratory celiotomy with lysis of adhesion secondary to partial SBO. s/p EGD and PEG placement 12/23/2017. PEG to gravity after procedure. Total intake of 350. Urinary output of 3356. Plan: Wound care; wound vac intact. continue supportive care and discomfort management continue antiemetics and pain control continue Peg to gravity, may placed to suction if patient has vomiting. OK to clamp PEG at this time continue Protonix and drip and Carafate per Peg tube NPO, continue TPN rectal tube per primary team continue Peck for accurate I&O Transfuse PRBC per primary team tachycardia/atrial fibrillation/flutter per critical care. Current pulse rate of 93-115 (currently at 108). (2) Anemia Current Visit: Yes Status: Acute Hgb stable at 8.5 (yesterday at 8.8. Vital signs stable. No further episodes of bleeding, patient has S/P 10 unit PRBC's transfuse the submission. S/P EGD 12/23 which noted evidence of her erosions and stigmata of bleeding no clot present within the stomach. Recommended to continue Carafate. Qualifiers: Anemia type: unspecified type Qualified Code(s): D64.9 - Anemia, unspecified (3) Upper GI bleed Current Visit: Yes Status: Resolved See plan above. Subjective Narrative: Patient says that she still feels weak, but feels better than yesterday. She still admits to b/l lower abdominal with when she moves. She denies any nausea or vomiting. She denies any chest pain or SOB. Her cough has been the same since her admission. She denies any production of phlegm. Denies any fever or chills overnight. Objective VITAL SIGNS: Reviewed. See [facility] GENERAL: no apparent distress. HEENT: [Normocephalic, PER, EOMi, oropharynx pink/moist, no JVD noted.] CV: b/l rad pulses 2+, tachycardic, no murmurs or gallops, no JVD RESPIRATORY: CTAB without wheezes, rales, or rhonchi ABD: soft, mild tenderness in RLQ and LLQ+LUQ with deep palpation., no rebound/ guarding/rigidity, no peritoneal signs. Hypoactive bowel sounds present. INCISION: clean, dry, intact without purulence/bleeding/edema/rubor/calor WOUND VAC/DRAINS: Intact. Less than 80 ml dark red fluid. PEG tube intact. RECTAL TUBE: 700 ml. EXTREMITY: grossly normal motor function, no pedal edema, peripheral pulses 2+ b /l NEUROLOGIC EXAM: AOx3, obeys commands, no speech deficits. PSYCHIATRIC: normal mood and affect SKIN: no gross lesions, rashes, or skin changes Vital Signs - Last 8 Hours Temp Pulse Resp BP Pulse Ox 12/25/17 09:23 17 99 12/25/17 07:26 98.2 F 100 17 117/75 95 12/25/17 04:36 98.1 F 108 16 134/73 96 12/25/17 04:30 20 100 Intake and Output 12/24/17 12/25/17 12/25/17 23:59 07:59 15:59 Intake Total 250 / 250 Output Total 600 / 600 2300 / 2300 Balance -600 / -600 -2300 / -2300 250 / 250 Intake: IV Fluids 250 / 250 Intralipid 20% 250 ML @ 21 mls/ 250 / 250 hr IVPB DAILY@1700 [facility] Rx#: [id number] Output: Rectal Tube 600 / 600 Catheter 0 / 0 2300 / 2300 Other: Weight 65 kg Blood Glucose* 126 190 123 Patient Weight 12/25/17 23:59 Weight 65 kg - Labs 12/25/17 04:00 12/25/17 04:00 Diabetes panel 12/25/17 Range/Units 04:00 Sodium 133 L (136-145) mEq/L Potassium 4.9 (3.5-5.1) mEq/L Chloride 102 (98-107) mEq/L Carbon Dioxide 27 (23-29) mEq/L BUN 30 H (8-23) mg/dL Creatinine 0.47 L (0.60-1.20) mg/dL Glucose 178 H (70-105) mg/dL Calcium 8.3 L (8.6-10.3) mg/dL AST 35 (13-39) Units/L ALT 26 (7-52) Units/L Alkaline Phosphatase 84 (34-104) Units/L Albumin 2.2 L (3.5-5.7) g/dL Calcium panel 12/25/17 Range/Units 04:00 Calcium 8.3 L (8.6-10.3) mg/dL Phosphorus 2.9 (2.7-4.5) mg/dL Albumin 2.2 L (3.5-5.7) g/dL Pituitary panel 12/25/17 Range/Units 04:00 Sodium 133 L (136-145) mEq/L Potassium 4.9 (3.5-5.1) mEq/L Chloride 102 (98-107) mEq/L Carbon Dioxide 27 (23-29) mEq/L BUN 30 H (8-23) mg/dL Creatinine 0.47 L (0.60-1.20) mg/dL Glucose 178 H (70-105) mg/dL Calcium 8.3 L (8.6-10.3) mg/dL Adrenal panel 12/25/17 Range/Units 04:00 Sodium 133 L (136-145) mEq/L Potassium 4.9 (3.5-5.1) mEq/L Chloride 102 (98-107) mEq/L Carbon Dioxide 27 (23-29) mEq/L BUN 30 H (8-23) mg/dL Creatinine 0.47 L (0.60-1.20) mg/dL Glucose 178 H (70-105) mg/dL Calcium 8.3 L (8.6-10.3) mg/dL Total Bilirubin 1.0 (0.3-1.0) mg/dL AST 35 (13-39) Units/L ALT 26 (7-52) Units/L Alkaline Phosphatase 84 (34-104) Units/L Albumin 2.2 L (3.5-5.7) g/dL - VTE Documentation of Mechanical Device: Intermittent pneumatic compression device Consult Discharge Plan - Plan Referrals: Sloane Murphy DO [Primary Care Provider] - Edmund Ritchie [Partnered Physician] - 12/31/17 3:30 pm
--- NOTE | 2017-12-25 11:52 | Internal Med Progress Note ---
Date of Encounter: 12/25/17 Time of Encounter: 11:00 - Assessment and plan (1) Respiratory failure Current Visit: Yes Status: Acute Assessment and plan: Pt is more hypoxic at this time due to pulmonary edema. Bipap started. Transfer to . Diurese. Wean oxygen as able. Qualifiers: Chronicity: acute Respiratory failure complication: hypoxia Qualified Code(s): J96.01 - Acute respiratory failure with hypoxia (2) Pulmonary edema Current Visit: No Status: Acute Assessment and plan: Most likely related to amount of volume received with fluids and blood. Will diurese aggressively. Oxygen support. Qualifiers: Chronicity: acute Qualified Code(s): J81.0 - Acute pulmonary edema (3) Diastolic CHF, acute on chronic Current Visit: Yes Status: Acute Assessment and plan: Due to volume overload. Diuresing. (4) Chronic respiratory failure Current Visit: Yes Status: Acute Assessment and plan: Chronic on oxyge. Qualifiers: Respiratory failure complication: hypoxia and hypercapnia Qualified Code(s) : J96.11 - Chronic respiratory failure with hypoxia; J96.12 - Chronic respiratory failure with hypercapnia (5) PAF (paroxysmal atrial fibrillation) Current Visit: No Status: Chronic Assessment and plan: Continue meds for rate control. (6) Diabetes mellitus, type 2 Current Visit: No Status: Chronic Assessment and plan: Continue monitor glucose and cover. Qualifiers: Diabetes mellitus fpc insulin use: without terminal manager use Diabetes mellitus complication status: with hyperglycemia Qualified Code(s): E11.65 - Type 2 diabetes mellitus with hyperglycemia (7) HTN (hypertension) Current Visit: No Status: Chronic Assessment and plan: Continue meds for BP. Qualifiers: Hypertension type: essential hypertension Qualified Code(s): I10 - Essential (primary) hypertension (8) Coronary artery disease Current Visit: Yes Status: Acute Assessment and plan: Chronic issue Qualifiers: Coronary Disease-Associated Artery/Lesion type: [place] artery [place] vs. transplanted heart: [place] heart Associated angina: without angina Qualified Code(s): I25.10 - Atherosclerotic heart disease of [place] coronary artery without angina pectoris (9) Acute blood loss anemia Current Visit: No Status: Acute Assessment and plan: H/H has been stable. (10) Gastric erosion with bleeding Current Visit: Yes Status: Acute Assessment and plan: Acute gastric erosions with bleeding. (11) Small bowel obstruction Current Visit: Yes Status: Acute Assessment and plan: s/p exploratory celiotomy with lysis of adhesions Has PEG at this time. (12) DVT prophylaxis Current Visit: No Status: Acute - Time Spent With Patient Total time spent is greater than 50% in coordination of care (as documented) at patient's floor/unit and/or counseling patient: - Subjective Interval history: Ms Hebert is currently admitted for acute bowel obstruction s/p laparotomy. She remains moderate to high risk due to potential for worsening clinical status. Ms Hebert was tranferred to ICU for acute UGI bleed. She received blood and fluids. Ultimately had EGD and PEG placed (to decompress bowel). She was transferred to floor yesterday. Today she is very congested and dyspneic. No fever or chills. Cough noted. Abd feels OK. Still with rectal tube. Her respiratory status has worsened during the morning and she is to be transferred to 2N. is at bedside. - Constitutional Vitals: Temp Pulse Resp BP Pulse Ox 98.4 F 116 18 199/101 94 12/25/17 10:59 12/25/17 10:59 12/25/17 10:59 12/25/17 10:59 12/25/17 10:59 General appearance: Present: A&O X 3, answers questions appropriately - Head Head exam: Present: normocephalic - Eye Eye exam: Present: conjuntiva pink - ENT ENT exam: Present: mucous membranes moist - Respiratory Respiratory exam: Present: rales, rhonchi, wheezes Additional comments: Significant congestion in chest. - Cardiovascular Cardiovascular exam: Present: irregular rhythm, tachycardia - GI/Abdominal GI/Abdominal exam: Present: soft, tenderness - Extremities Exam Extremities exam: Present: warm. Absent: tenderness - Neurological Exam Neurological exam: Present: alert, oriented X3 - Skin Skin exam: Present: diaphoretic, warm Internal Medicine: Result - Labs CBC & Chem 7: 12/25/17 04:00 12/25/17 04:00 Labs: Short CBC 12/25/17 Range/Units 04:00 WBC 11.9 H (4.3-11.1) K/mcL Hgb 8.5 L (11.5-15.4) g/dL Hct 27.1 L (35.3-44.9) % Plt Count 168 (140-400) K/mcL Neutrophils # 9.2 H (1.6-8.9) K/mcL BMP 12/25/17 04:00 Sodium 133 L Potassium 4.9 Chloride 102 Carbon Dioxide 27 BUN 30 H Creatinine 0.47 L Glucose 178 H Calcium 8.3 L Liver Function 12/25/17 Range/Units 04:00 Total Bilirubin 1.0 (0.3-1.0) mg/dL AST 35 (13-39) Units/L ALT 26 (7-52) Units/L Alkaline Phosphatase 84 (34-104) Units/L Albumin 2.2 L (3.5-5.7) g/dL - ABG Interpretation ABG results: ABG ABG pH 7.46 pH Units (7.32-7.45) H 12/21/17 16:34 ABG pCO2 68 mmHg (35-45) H 12/21/17 16:34 ABG pO2 59 mmHg (85-104) L 12/21/17 16:34 ABG O2 Saturation 90 % (95-98) L 12/21/17 16:34 PT/INR, D-dimer PT 11.9 Seconds (9.4-12.1) 12/22/17 20:40 - VTE Documentation of Mechanical Device: Intermittent pneumatic compression device Consult Discharge Plan - Plan Referrals: Sloane Murphy DO [Primary Care Provider] - Edmund Ritchie [Partnered Physician] - 12/31/17 3:30 pm
[2017-12-25] MEDS: Furosemide 40 MG/4 ML VIAL IVP SCH ×2 (13:30→16:48)
[2017-12-25] MEDS: Clinimix E 5%-15% SOLUTION 2,000 ML with MVI, adult with vitamin K 10 ML, Magnesium S... IVC SCH (16:49)
[2017-12-25] MEDS ORDERED: Clinimix E 5%-15% SOLUTION 2,000 ML with MVI, adult with vitamin K 10 ML IVC SCH (17:00)
[2017-12-26] MEDS ORDERED: Ketorolac 15 MG/ML VIAL IVP ONE (00:48)
[2017-12-26 03:39] LABS: Basophils # 0.1 K/mcL (0.0-0.2); Basophils % 0.6 %; Eosinophils # 0.3 K/mcL (0.0-0.6); Eosinophils % 3.7 %; Hematocrit 23.8 % (35.3-44.9); Hemoglobin 7.7 g/dL (11.5-15.4); Immature Granulocytes % 0.7 % (0-4); Lymphocytes # 1.1 K/mcL (0.6-4.6); Lymphocytes % 11.7 %; Mean Corpuscular HGB Conc 32.4 g/dL (31.6-35.5); Mean Corpuscular Hemoglobin 29.8 pg (28.0-33.3); Mean Corpuscular Volume 92.2 fL (83.0-100.0); Mean Platelet Volume 10.7 fL (9.4-12.4); Monocytes # 1.1 K/mcL (0.0-1.3); Monocytes % 12.6 %; Neutrophils # 6.4 K/mcL (1.6-8.9); Platelet Count 161 K/mcL (140-400); Red Blood Count 2.58 M/mcL (3.82-4.97); Red Cell Distribution Width 17.7 % (11.5-14.5); Segmented Neutrophils % 70.7 %
[2017-12-26 03:54] LABS: VBG Ionized Calcium 1.16 mmol/L (1.15-1.35)
[2017-12-26] MEDS: Insulin LISPRO 300 UNITS/3 ML VIAL SQ SCH ×5 (03:54→20:31)
[2017-12-26 03:59] LABS: Alanine Aminotransferase 25 Units/L (7-52); Albumin 2.1 g/dL (3.5-5.7); Albumin/Globulin Ratio 0.7 (1.1-2.2); Alkaline Phosphatase 84 Units/L (34-104); Aspartate Amino Transferase 33 Units/L (13-39); BUN/Creatinine Ratio 57 (6-26); Bilirubin,Total 0.8 mg/dL (0.3-1.0); Blood Urea Nitrogen 31 mg/dL (8-23); Calcium 8.3 mg/dL (8.6-10.3); Carbon Dioxide 31 mEq/L (23-29); Chloride 100 mEq/L (98-107); Globulin 3.2 g/dL (2.4-3.5); Glucose 130 mg/dL (70-105); Magnesium 1.5 mg/dL (1.6-2.6); Osmolality,Calculated 286 (280-300); Phosphorous 3.7 mg/dL (2.7-4.5); Potassium 4.1 mEq/L (3.5-5.1); Sodium 134 mEq/L (136-145); Total Protein 5.3 g/dL (6.4-8.9); eGFR For African Americans > 60 (> 60); eGFR For Non-African Americans > 60 (> 60)
[2017-12-26] MEDS: Levalbuterol Neb 0.63 MG/3 ML IH SCH ×4 (04:29→21:58)
[2017-12-26] MEDS: *HR* Metoprolol 5 MG/5 ML VIAL IVP SCH ×3 (05:29→17:52)
[2017-12-26] MEDS: Pantoprazole 40 MG VIAL IVP SCH ×2 (05:29→17:52)
[2017-12-26] MEDS: Furosemide 40 MG/4 ML VIAL IVP SCH ×2 (07:48→17:35)
--- NOTE | 2017-12-26 08:29 | Internal Med Progress Note ---
Date of Encounter: 12/26/17 Time of Encounter: 08:20 - Assessment and plan (1) Respiratory failure Current Visit: Yes Status: Acute Assessment and plan: Improved some today with diuresis and supportive care. Will wean oxygen as able. Qualifiers: Chronicity: acute Respiratory failure complication: hypoxia Qualified Code(s): J96.01 - Acute respiratory failure with hypoxia (2) Pulmonary edema Current Visit: No Status: Acute Assessment and plan: Seems to be improving. Decrease Lasix to BID. Follow electrolytes. Qualifiers: Chronicity: acute Qualified Code(s): J81.0 - Acute pulmonary edema (3) Diastolic CHF, acute on chronic Current Visit: Yes Status: Acute Assessment and plan: Most likely related to volume overload. She appears to be slowly improving today. (4) Chronic respiratory failure Current Visit: Yes Status: Chronic Assessment and plan: Supportive care. Qualifiers: Respiratory failure complication: hypoxia and hypercapnia Qualified Code(s) : J96.11 - Chronic respiratory failure with hypoxia; J96.12 - Chronic respiratory failure with hypercapnia (5) PAF (paroxysmal atrial fibrillation) Current Visit: No Status: Chronic Assessment and plan: No issues at this time. (6) Diabetes mellitus, type 2 Current Visit: No Status: Chronic Assessment and plan: Monitoring blood sugar and covering. Qualifiers: Diabetes mellitus retirement insulin use: without vermin exterminator use Diabetes mellitus complication status: with hyperglycemia Qualified Code(s): E11.65 - Type 2 diabetes mellitus with hyperglycemia (7) HTN (hypertension) Current Visit: No Status: Chronic Assessment and plan: Controlled currently. Continue current meds. Qualifiers: Hypertension type: essential hypertension Qualified Code(s): I10 - Essential (primary) hypertension (8) Coronary artery disease Current Visit: Yes Status: Chronic Assessment and plan: Chronic issue. Qualifiers: Coronary Disease-Associated Artery/Lesion type: [place] artery [place] vs. transplanted heart: [place] heart Associated angina: without angina Qualified Code(s): I25.10 - Atherosclerotic heart disease of [place] coronary artery without angina pectoris (9) Acute blood loss anemia Current Visit: No Status: Acute Assessment and plan: Monitoring H/H. Appears to be stable today. (10) Gastric erosion with bleeding Current Visit: Yes Status: Acute Assessment and plan: Monitoring for signs of recurrent bleeding (11) Small bowel obstruction Current Visit: Yes Status: Acute Assessment and plan: Per surgery. (12) DVT prophylaxis Current Visit: No Status: Acute (13) Sacral decubitus ulcer Current Visit: No Status: Chronic Assessment and plan: Monitoring. Qualifiers: Pressure ulcer stage: stage 2 Qualified Code(s): L89.152 - Pressure ulcer of sacral region, stage 2 - Time Spent With Patient Total time spent is greater than 50% in coordination of care (as documented) at patient's floor/unit and/or counseling patient: - Subjective Interval history: Ms Hebert is currently admitted for acute bowel obstruction s/p laparotomy. She remains moderate to high risk due to potential for worsening clinical status. Ms Hebert was transferred to yesterday due to respiratory distress. She is feeling much better today. No fever or chills at this time. Still with loose stool. Less cough. No other new issues overnight. - Constitutional Vitals: Temp Pulse Resp BP Pulse Ox 98.4 F 88 18 108/57 96 12/26/17 07:48 12/26/17 07:48 12/26/17 07:48 12/26/17 07:48 12/26/17 07:48 General appearance: Present: A&O X 3, answers questions appropriately - Head Head exam: Present: normocephalic - Eye Eye exam: Present: EOMI, conjuntiva pink - ENT ENT exam: Present: mucous membranes dry - Respiratory Respiratory exam: Present: rales, rhonchi. Absent: wheezes - Cardiovascular Cardiovascular exam: Present: RRR. Absent: tachycardia - GI/Abdominal GI/Abdominal exam: Present: soft - Extremities Exam Extremities exam: Present: warm. Absent: tenderness - Neurological Exam Neurological exam: Present: alert, oriented X3, no focal deficits - Skin Skin exam: Present: dry, warm Internal Medicine: Result - Labs CBC & Chem 7: 12/26/17 03:12 12/26/17 03:12 Labs: Short CBC 12/26/17 Range/Units 03:12 WBC 9.0 (4.3-11.1) K/mcL Hgb 7.7 L (11.5-15.4) g/dL Hct 23.8 L (35.3-44.9) % Plt Count 161 (140-400) K/mcL Neutrophils # 6.4 (1.6-8.9) K/mcL BMP 12/26/17 03:12 Sodium 134 L Potassium 4.1 Chloride 100 Carbon Dioxide 31 H BUN 31 H Creatinine 0.54 L Glucose 130 H Calcium 8.3 L Liver Function 12/26/17 Range/Units 03:12 Total Bilirubin 0.8 (0.3-1.0) mg/dL AST 33 (13-39) Units/L ALT 25 (7-52) Units/L Alkaline Phosphatase 84 (34-104) Units/L Albumin 2.1 L (3.5-5.7) g/dL - ABG Interpretation ABG results: ABG ABG pH 7.46 pH Units (7.32-7.45) H 12/21/17 16:34 ABG pCO2 68 mmHg (35-45) H 12/21/17 16:34 ABG pO2 59 mmHg (85-104) L 12/21/17 16:34 ABG O2 Saturation 90 % (95-98) L 12/21/17 16:34 PT/INR, D-dimer PT 11.9 Seconds (9.4-12.1) 12/22/17 20:40 - VTE Documentation of Mechanical Device: Intermittent pneumatic compression device Consult Discharge Plan - Plan Referrals: Sloane Murphy DO [Primary Care Provider] - Edmund Ritchie [Partnered Physician] - 12/31/17 3:30 pm
[2017-12-26] MEDS: OXYCODONE Oral CONC 10 MG/0.5 ML ORAL.SYG SL PRN ×2 (10:08→20:13)
[2017-12-26] MEDS: Metoclopramide 10 MG/2 ML VIAL IVP SCH ×2 (10:10→21:44)
[2017-12-26] MEDS: *HR* Digoxin 0.5 MG/2 ML AMPUL IVP SCH (10:10)
--- NOTE | 2017-12-26 10:33 | General Surgery Progress Note ---
Date of Encounter: 12/26/17 Time of Encounter: 07:10 - Assessment and Plan (1) Small bowel obstruction Current Visit: Yes Status: Acute Hospital Day #12 POD #11 s/p exploratory celiotomy with lysis of adhesion secondary to partial SBO. s/p EGD and PEG placement 12/23/2017. PEG to gravity after procedure. Total intake of 250 yesterday and 250 today so far. Urinary output of 5875 yesterday and 225 today. Plan: Advanced to clear liquid diet. Wound care; wound vac intact. continue supportive care and discomfort management continue antiemetics and pain control continue Peg to gravity, may placed to suction if patient has vomiting. OK to clamp PEG at this time continue Protonix and drip and Carafate per Peg tube, continue TPN rectal tube per primary team continue Peck for accurate I&O Transfuse PRBC per primary team tachycardia/atrial fibrillation/flutter per critical care. Current pulse rate of 93-115 (currently at 88). (2) Anemia Current Visit: Yes Status: Acute Hgb at 7.7 (yesterday at 8.5). No further episodes of bleeding, patient has S/P 10 unit PRBC's transfuse the submission. S/P EGD 12/23/17 which noted evidence of her erosions and stigmata of bleeding no clot present within the stomach. Recommended to continue Carafate. - Continue to monitor H/H. Qualifiers: Anemia type: unspecified type Qualified Code(s): D64.9 - Anemia, unspecified (3) Upper GI bleed Current Visit: Yes Status: Resolved See plan above. (4) Acute on chronic respiratory failure Current Visit: No Status: Acute Patient had dyspnea and congestion on exam yesterday. She was put on Bipap yesterday and today her lungs sound clear. Cough has diminished as well. - Management per primary team. Qualifiers: Respiratory failure complication: hypoxia Qualified Code(s): J96.21 - Acute and chronic respiratory failure with hypoxia (5) Hypomagnesemia Current Visit: No Status: Acute Magnesium level at 1.5. - Given 2 gm IV magnesium. Subjective Narrative: Patient denies any nausea or vomiting. Denies any chest pain or SOB. Denies any abdominal pain. Denies any fever or chills over night. Admits to passing gas. Objective VITAL SIGNS: Reviewed. See [facility] GENERAL: no apparent distress. HEENT: [Normocephalic, PER, EOMi, oropharynx pink/moist, no JVD noted.] CV: b/l rad pulses 2+, tachycardic, no murmurs or gallops, no JVD RESPIRATORY: CTAB without wheezes, rales, or rhonchi (improved from yesterday). ABD: soft, mild tenderness in RLQ and LLQ+LUQ with deep palpation., no rebound/ guarding/rigidity, no peritoneal signs. Hypoactive bowel sounds present. INCISION: clean, dry, intact without purulence/bleeding/edema/rubor/calor WOUND VAC/DRAINS: Intact. Dark red fluid. PEG tube intact. EXTREMITY: grossly normal motor function, no pedal edema, peripheral pulses 2+ b /l NEUROLOGIC EXAM: AOx3, obeys commands, no speech deficits. PSYCHIATRIC: normal mood and affect SKIN: no gross lesions, rashes, or skin changes Vital Signs - Last 8 Hours Temp Pulse Resp BP Pulse Ox 12/26/17 07:48 98.4 F 88 18 108/57 96 12/26/17 04:29 18 110/63 99 12/26/17 03:48 97.6 F 83 22 110/63 97 Intake and Output 12/25/17 12/26/17 12/26/17 23:59 07:59 15:59 Intake Total 250 / 250 Output Total 2074 225 / 225 Balance -2074 / -2074 25 / 25 Intake: IV Fluids 250 / 250 Intralipid 20% 250 ML @ 21 mls/ 250 / 250 hr IVPB DAILY@1700 [facility] Rx#: [id number] Output: Catheter 2074 225 / 225 Other: Meal NPO Weight 62.6 kg Blood Glucose* 117 127 Patient Weight 12/26/17 23:59 Weight 62.6 kg - Labs 12/26/17 03:12 12/26/17 03:12 Diabetes panel 12/26/17 Range/Units 03:12 Sodium 134 L (136-145) mEq/L Potassium 4.1 (3.5-5.1) mEq/L Chloride 100 (98-107) mEq/L Carbon Dioxide 31 H (23-29) mEq/L BUN 31 H (8-23) mg/dL Creatinine 0.54 L (0.60-1.20) mg/dL Glucose 130 H (70-105) mg/dL Calcium 8.3 L (8.6-10.3) mg/dL AST 33 (13-39) Units/L ALT 25 (7-52) Units/L Alkaline Phosphatase 84 (34-104) Units/L Albumin 2.1 L (3.5-5.7) g/dL Calcium panel 12/26/17 Range/Units 03:12 Calcium 8.3 L (8.6-10.3) mg/dL Phosphorus 3.7 (2.7-4.5) mg/dL Albumin 2.1 L (3.5-5.7) g/dL Pituitary panel 12/26/17 Range/Units 03:12 Sodium 134 L (136-145) mEq/L Potassium 4.1 (3.5-5.1) mEq/L Chloride 100 (98-107) mEq/L Carbon Dioxide 31 H (23-29) mEq/L BUN 31 H (8-23) mg/dL Creatinine 0.54 L (0.60-1.20) mg/dL Glucose 130 H (70-105) mg/dL Calcium 8.3 L (8.6-10.3) mg/dL Adrenal panel 12/26/17 Range/Units 03:12 Sodium 134 L (136-145) mEq/L Potassium 4.1 (3.5-5.1) mEq/L Chloride 100 (98-107) mEq/L Carbon Dioxide 31 H (23-29) mEq/L BUN 31 H (8-23) mg/dL Creatinine 0.54 L (0.60-1.20) mg/dL Glucose 130 H (70-105) mg/dL Calcium 8.3 L (8.6-10.3) mg/dL Total Bilirubin 0.8 (0.3-1.0) mg/dL AST 33 (13-39) Units/L ALT 25 (7-52) Units/L Alkaline Phosphatase 84 (34-104) Units/L Albumin 2.1 L (3.5-5.7) g/dL - VTE Documentation of Mechanical Device: Intermittent pneumatic compression device Consult Discharge Plan - Plan Referrals: Sloane Murphy DO [Primary Care Provider] - Edmund Ritchie [Partnered Physician] - 12/31/17 3:30 pm
[2017-12-26] MEDS: Beclomethasone 80mcg MDI IH SCH ×2 (10:41→21:58)
[2017-12-26] MEDS ORDERED: *HR* Metoprolol 5 MG/5 ML VIAL IVP ONE (14:49)
[2017-12-26] MEDS ORDERED: Clinimix E 5%-15% SOLUTION 2,000 ML with MVI, adult with vitamin K 10 ML IVC SCH (17:00)
[2017-12-26] MEDS: Clinimix E 5%-15% SOLUTION 2,000 ML with MVI, adult with vitamin K 10 ML, Magnesium S... IVC SCH ×2 (17:52→17:53)
[2017-12-26] MEDS: Cefepime HCl 1,000 MG in Water for inj. (sterile) 20 ML 10 ML IVP SCH (19:39)
[2017-12-26] MEDS: Ondansetron 4 MG/2 ML VIAL IVP PRN (20:13)
[2017-12-27] MEDS: *HR* Metoprolol 5 MG/5 ML VIAL IVP SCH ×5 (00:09→23:57)
[2017-12-27 00:15] LABS: Bilirubin,Urine Negative (Negative); Blood,Urine Negative (Negative); Clarity,Urine Cloudy (Clear); Color,Urine Dark Yellow (Yellow); Glucose,Urine (UA) Normal (Normal); Ketones,Urine Negative (Negative); Leukocyte Esterase,Urine Small (Negative); Nitrite,Urine Negative (Negative); PH,Urine 5.5 pH Units (5.0-8.0); Protein,Urine Trace mg/dL (Neg-Trace); Specific Gravity,Urine 1.029 (1.010-1.025); Urobilinogen,Urine Normal (Normal)
[2017-12-27 00:23] LABS: Bacteria,Urine None Seen per hpf (None-Few); Squamous Epithelial Cell,Urine Many per lpf (None-Few)
[2017-12-27 00:36] LABS: Hyaline Casts,Urine None Seen per lpf (None-Few); RBC,Urine 0-3 per hpf (0-3); Yeast,Urine Moderate per hpf (None Seen)
[2017-12-27] MEDS: Insulin LISPRO 300 UNITS/3 ML VIAL SQ SCH ×7 (00:38→23:57)
[2017-12-27] MEDS: Ondansetron 4 MG/2 ML VIAL IVP PRN ×2 (03:31→08:29)
[2017-12-27] MEDS: OXYCODONE Oral CONC 10 MG/0.5 ML ORAL.SYG SL PRN ×2 (03:32→22:19)
[2017-12-27] MEDS: Levalbuterol Neb 0.63 MG/3 ML IH SCH ×4 (03:41→21:16)
[2017-12-27 04:15] LABS: BUN/Creatinine Ratio 64 (6-26); Blood Urea Nitrogen 42 mg/dL (8-23); Calcium 8.2 mg/dL (8.6-10.3); Carbon Dioxide 30 mEq/L (23-29); Chloride 98 mEq/L (98-107); Glucose 150 mg/dL (70-105); Osmolality,Calculated 289 (280-300); Phosphorous 4.9 mg/dL (2.7-4.5); Potassium 3.9 mEq/L (3.5-5.1); Sodium 133 mEq/L (136-145); eGFR For African Americans > 60 (> 60); eGFR For Non-African Americans > 60 (> 60)
[2017-12-27] MEDS: Cefepime HCl 1,000 MG in Water for inj. (sterile) 20 ML 10 ML IVP SCH ×2 (05:42→17:33)
[2017-12-27] MEDS: Pantoprazole 40 MG VIAL IVP SCH ×2 (05:42→17:34)
[2017-12-27 07:11] LABS: Magnesium 1.8 mg/dL (1.6-2.6)
[2017-12-27] MEDS: Furosemide 40 MG/4 ML VIAL IVP SCH ×2 (08:27→17:32)
[2017-12-27] MEDS: *HR* Digoxin 0.5 MG/2 ML AMPUL IVP SCH (08:28)
[2017-12-27] MEDS: *HR* FentaNYL (PF) 100 MCG/2 ML VIAL IVP PRN ×2 (08:29→13:07)
--- NOTE | 2017-12-27 09:17 | General Surgery Progress Note ---
<Lobito Koehler - Last Filed: 12/27/17 14:45> Date of Encounter: 12/27/17 Time of Encounter: 09:14 - Assessment and Plan (1) Small bowel obstruction due to adhesions Current Visit: Yes Status: Acute POD #12 s/p exploratory celiotomy with lysis of adhesion secondary to partial SBO s/p EGD and PEG placement 12/23/2017. PEG to gravity Attempted clears yesterday with some increased abdominal pain today I/O - 435 ml yesterday Fever overnight - UA negative. CXR unchanged. BCx drawn per primary team - No leukocytosis. No concerning appearance to wound and wound bed - no erythema or purulence, good granulation tissue in wound base Plan: Continue to attempt advancing to clear liquid diet - may use PEG tube for feeding Continue TPN Wound care, wound vac intact Continue supportive care, antiemetics, pain control, PPI, and Carafate Rectal tube per primary team Continue Peck for accurate I&O Transfuse PRBC per primary team Continue antibiotics per primary team (2) Anemia Current Visit: Yes Status: Acute Hgb stable at 8.1. No further episodes of bleeding - 10 U PRBCs total since admission s/p EGD 12/23/17: erosions and stigmata of bleeding no clot present within the stomach Recommended to continue Carafate. Continue to monitor H/H Qualifiers: Anemia type: unspecified type Qualified Code(s): D64.9 - Anemia, unspecified (3) Upper GI bleed Current Visit: Yes Status: Resolved (4) Acute on chronic respiratory failure Current Visit: Yes Status: Acute Reports improvement in her breathing. No changes on CXR. Management per primary team Qualifiers: Respiratory failure complication: hypoxia Qualified Code(s): J96.21 - Acute and chronic respiratory failure with hypoxia Subjective Narrative: Patient had a fever last evening around 6 PM up to 101.3 - CXR unchanged, UA normal, and blood cultures drawn. Reports some increasing abdominal pain with increasing clear diet yesterday. Reports associated nausea. + flatus and BM. Denies vomiting, chest pain, or dyspnea. Objective Vital Signs - Last 8 Hours Temp Pulse Resp BP Pulse Ox 12/27/17 07:19 98.9 F 88 20 103/65 99 12/27/17 03:58 99.3 F 91 22 97/60 100 12/27/17 03:43 16 100 Intake and Output 12/26/17 12/27/17 12/27/17 23:59 07:59 15:59 Intake Total 360 / 360 260 / 260 Output Total 500 / 500 Balance -140 / -140 260 / 260 Intake: IV Fluids 360 / 360 260 / 260 Maxipime 1,000 MG In Water for inj. (sterile) 10 ML @ 300 mls/ hr IVP Q12HR [facility] Rx#:[id number] Ofirmev 1,000 mg/100 ml 1,000 100 / 100 mg In 100 ml @ 400 mls/hr IVPB Q6HR [facility] Rx#:[id number] Intralipid 20% 250 ML @ 21 mls/ 250 / 250 hr IVPB DAILY@1700 [facility] Rx#: [id number] Vancocin 1,000 MG In 0.9 % 250 / 250 Sodium Chloride 250 ML @ 167 mls/hr IVPB Q12H [facility] Rx#: [id number] Output: Catheter 500 / 500 Other: Meal Dinner Percent of Meal Consumed 50% Weight 63.8 kg Blood Glucose* 84 157 Patient Weight 12/27/17 23:59 Weight 63.8 kg - Additional Exam VITAL SIGNS: Reviewed. See [facility] GENERAL: no apparent distress. HEENT: Normocephalic, PER, EOMI, oropharynx pink/moist, no JVD noted CV: b/l rad pulses 2+, RRR, no murmurs or gallops, no JVD RESPIRATORY: Rales bilaterally. No wheezes ABD: soft, mild tenderness in RUQ and LUQ with palpation, no rebound/guarding/ rigidity, no peritoneal signs. Hypoactive bowel sounds present. INCISION: clean, dry, intact without purulence/bleeding/edema/rubor/calor WOUND VAC/DRAINS: Intact. Dark red fluid. PEG tube intact. No erythema, purulence, or warmth EXTREMITY: grossly normal motor function, no pedal edema, peripheral pulses 2+ b /l NEUROLOGIC EXAM: AOx3, obeys commands, no speech deficits. PSYCHIATRIC: normal mood and affect SKIN: no gross lesions, rashes, or skin changes - Labs 12/27/17 11:50 12/27/17 03:38 Diabetes panel 12/27/17 Range/Units 03:38 Sodium 133 L (136-145) mEq/L Potassium 3.9 (3.5-5.1) mEq/L Chloride 98 (98-107) mEq/L Carbon Dioxide 30 H (23-29) mEq/L BUN 42 H (8-23) mg/dL Creatinine 0.66 (0.60-1.20) mg/dL Glucose 150 H (70-105) mg/dL Calcium 8.2 L (8.6-10.3) mg/dL Calcium panel 12/27/17 Range/Units 03:38 Calcium 8.2 L (8.6-10.3) mg/dL Phosphorus 4.9 H (2.7-4.5) mg/dL Pituitary panel 12/27/17 Range/Units 03:38 Sodium 133 L (136-145) mEq/L Potassium 3.9 (3.5-5.1) mEq/L Chloride 98 (98-107) mEq/L Carbon Dioxide 30 H (23-29) mEq/L BUN 42 H (8-23) mg/dL Creatinine 0.66 (0.60-1.20) mg/dL Glucose 150 H (70-105) mg/dL Calcium 8.2 L (8.6-10.3) mg/dL Adrenal panel 12/27/17 Range/Units 03:38 Sodium 133 L (136-145) mEq/L Potassium 3.9 (3.5-5.1) mEq/L Chloride 98 (98-107) mEq/L Carbon Dioxide 30 H (23-29) mEq/L BUN 42 H (8-23) mg/dL Creatinine 0.66 (0.60-1.20) mg/dL Glucose 150 H (70-105) mg/dL Calcium 8.2 L (8.6-10.3) mg/dL - VTE Documentation of Mechanical Device: Intermittent pneumatic compression device Consult Discharge Plan - Plan Referrals: Sloane Murphy DO [Primary Care Provider] - 01/03/18 4:15 pm Edmund Ritchie [Partnered Physician] - 12/31/17 3:30 pm <Nadeem Chauhan - Last Filed: 12/28/17 06:50> Date of Encounter: 12/27/17 Objective Vital Signs - Last 8 Hours Temp Pulse Resp BP Pulse Ox 12/28/17 03:40 16 98 12/28/17 03:17 99.2 F 110 16 104/67 97 12/27/17 23:32 115 16 96/56 96 Intake and Output 12/27/17 12/27/17 12/28/17 15:59 23:59 07:59 Intake Total 260 / 260 260 / 260 Output Total 450 / 450 1600 / 1600 500 / 500 Balance -450 / -450 -1340 / -1340 -240 / -240 Intake: IV Fluids 260 / 260 260 / 260 Maxipime 1,000 MG In Water for inj. (sterile) 10 ML @ 300 mls/ hr IVP Q12HR [facility] Rx#:[id number] Intralipid 20% 250 ML @ 21 mls/ 250 / 250 hr IVPB DAILY@1700 [facility] Rx#: [id number] Vancocin 1,000 MG In 0.9 % 250 / 250 Sodium Chloride 250 ML @ 167 mls/hr IVPB Q12H [facility] Rx#: [id number] Output: Stool 100 / 100 150 / 150 Catheter 450 / 450 1500 / 1500 350 / 350 Urethral (Peck) 650 / 650 Other: Stool Consistency liquid Stool Color Green Weight 64.5 kg Blood Glucose* 133 149 143 Patient Weight 12/28/17 23:59 Weight 64.5 kg - Labs 12/27/17 11:50 12/28/17 05:53 Diabetes panel 12/28/17 Range/Units 05:53 Sodium 134 L (136-145) mEq/L Potassium 3.9 (3.5-5.1) mEq/L Chloride 102 (98-107) mEq/L Carbon Dioxide 27 (23-29) mEq/L BUN 44 H (8-23) mg/dL Creatinine 0.74 (0.60-1.20) mg/dL Glucose 123 H (70-105) mg/dL Calcium 8.0 L (8.6-10.3) mg/dL Calcium panel 12/28/17 Range/Units 05:53 Calcium 8.0 L (8.6-10.3) mg/dL Phosphorus 3.6 (2.7-4.5) mg/dL Pituitary panel 12/28/17 Range/Units 05:53 Sodium 134 L (136-145) mEq/L Potassium 3.9 (3.5-5.1) mEq/L Chloride 102 (98-107) mEq/L Carbon Dioxide 27 (23-29) mEq/L BUN 44 H (8-23) mg/dL Creatinine 0.74 (0.60-1.20) mg/dL Glucose 123 H (70-105) mg/dL Calcium 8.0 L (8.6-10.3) mg/dL Adrenal panel 12/28/17 Range/Units 05:53 Sodium 134 L (136-145) mEq/L Potassium 3.9 (3.5-5.1) mEq/L Chloride 102 (98-107) mEq/L Carbon Dioxide 27 (23-29) mEq/L BUN 44 H (8-23) mg/dL Creatinine 0.74 (0.60-1.20) mg/dL Glucose 123 H (70-105) mg/dL Calcium 8.0 L (8.6-10.3) mg/dL - Attending Attestation I examined this patient and my medical decision-making was reviewed with the Resident Physician. I agree with the documented findings, disposition and treatment plan as described except to the extent set forth below. Review the above assessment and evaluation and agree with the above-mentioned plan. Wound VAC to be changed today.
--- NOTE | 2017-12-27 10:05 | Internal Med Progress Note ---
Date of Encounter: 12/27/17 Time of Encounter: 09:45 - Assessment and plan (1) Respiratory failure Current Visit: Yes Status: Acute Assessment and plan: Respiratory status appears stable today. CXR with no infiltrate. Will decrease diuresis starting tomorrow. Qualifiers: Chronicity: acute Respiratory failure complication: hypoxia Qualified Code(s): J96.01 - Acute respiratory failure with hypoxia (2) Pulmonary edema Current Visit: No Status: Acute Assessment and plan: Continue BID diuresis today. Decrease timing tomorrow. Qualifiers: Chronicity: acute Qualified Code(s): J81.0 - Acute pulmonary edema (3) Diastolic CHF, acute on chronic Current Visit: Yes Status: Acute Assessment and plan: Continues to slowly improve. (4) Chronic respiratory failure Current Visit: Yes Status: Chronic Assessment and plan: Supportive care. Qualifiers: Respiratory failure complication: hypoxia and hypercapnia Qualified Code(s) : J96.11 - Chronic respiratory failure with hypoxia; J96.12 - Chronic respiratory failure with hypercapnia (5) PAF (paroxysmal atrial fibrillation) Current Visit: No Status: Chronic Assessment and plan: No issues at this time. (6) Diabetes mellitus, type 2 Current Visit: No Status: Chronic Assessment and plan: Monitoring blood sugar and covering. Qualifiers: Diabetes mellitus group home insulin use: without terminal gauger supervisor use Diabetes mellitus complication status: with hyperglycemia Qualified Code(s): E11.65 - Type 2 diabetes mellitus with hyperglycemia (7) HTN (hypertension) Current Visit: No Status: Chronic Assessment and plan: Controlled currently. Continue current meds. Qualifiers: Hypertension type: essential hypertension Qualified Code(s): I10 - Essential (primary) hypertension (8) Coronary artery disease Current Visit: Yes Status: Chronic Assessment and plan: Chronic issue. Qualifiers: Coronary Disease-Associated Artery/Lesion type: [place] artery [place] vs. transplanted heart: [place] heart Associated angina: without angina Qualified Code(s): I25.10 - Atherosclerotic heart disease of [place] coronary artery without angina pectoris (9) Acute blood loss anemia Current Visit: No Status: Acute Assessment and plan: Monitoring H/H. Remains stable today. (10) Gastric erosion with bleeding Current Visit: Yes Status: Acute Assessment and plan: Monitoring for signs of recurrent bleeding (11) Small bowel obstruction Current Visit: Yes Status: Acute Assessment and plan: Per surgery. (12) DVT prophylaxis Current Visit: No Status: Acute (13) Sacral decubitus ulcer Current Visit: No Status: Chronic Assessment and plan: Monitoring. Qualifiers: Pressure ulcer stage: stage 2 Qualified Code(s): L89.152 - Pressure ulcer of sacral region, stage 2 (14) Fever Current Visit: Yes Status: Acute Qualifiers: Fever type: unspecified Qualified Code(s): R50.9 - Fever, unspecified - Time Spent With Patient Total time spent is greater than 50% in coordination of care (as documented) at patient's floor/unit and/or counseling patient: - Subjective Interval history: Ms Hebert is currently admitted for acute bowel obstruction s/p laparotomy. She remains moderate to high risk due to potential for worsening clinical status. Ms Hebert had a fever last night. Started on IV abx and no further fever. No source of any infection at this time. No CP. Dyspnea about the same. Started on diet today. - Constitutional Vitals: Temp Pulse Resp BP Pulse Ox 98.9 F 88 20 103/65 99 12/27/17 07:19 12/27/17 07:19 12/27/17 07:19 12/27/17 07:19 12/27/17 07:19 General appearance: Present: A&O X 3, answers questions appropriately - Head Head exam: Present: normocephalic - Eye Eye exam: Present: conjuntiva pink - ENT ENT exam: Present: mucous membranes dry - Respiratory Respiratory exam: Present: rhonchi. Absent: rales, wheezes - Cardiovascular Cardiovascular exam: Present: irregular rhythm. Absent: tachycardia - GI/Abdominal GI/Abdominal exam: Present: hypoactive bowel sounds, soft - Extremities Exam Extremities exam: Present: warm. Absent: tenderness - Neurological Exam Neurological exam: Present: alert, oriented X3 - Skin Skin exam: Present: dry, warm Internal Medicine: Result - Labs CBC & Chem 7: 12/27/17 11:50 12/27/17 03:38 Labs: BMP 12/27/17 03:38 Sodium 133 L Potassium 3.9 Chloride 98 Carbon Dioxide 30 H BUN 42 H Creatinine 0.66 Glucose 150 H Calcium 8.2 L Urine 12/26/17 Range/Units 23:50 Urine Color Dark Yellow (Yellow) Urine Clarity Cloudy A (Clear) Urine pH 5.5 (5.0-8.0) pH Units Ur Specific [place] 1.029 H (1.010-1.025) Urine Protein Trace (Neg-Trace) mg/dL Urine Glucose (UA) Normal (Normal) mg/dL - ABG Interpretation ABG results: ABG ABG pH 7.46 pH Units (7.32-7.45) H 12/21/17 16:34 ABG pCO2 68 mmHg (35-45) H 12/21/17 16:34 ABG pO2 59 mmHg (85-104) L 12/21/17 16:34 ABG O2 Saturation 90 % (95-98) L 12/21/17 16:34 PT/INR, D-dimer PT 11.9 Seconds (9.4-12.1) 12/22/17 20:40 - Impressions Impressions Chest X-Ray 12/26/17 18:34 IMPRESSION: No significant change in pulmonary edema. D/ / Yong Delgado MD / Yong Delgado MD Interpreting Provider: Yong Delgado MD - VTE Documentation of Mechanical Device: Intermittent pneumatic compression device Consult Discharge Plan - Plan Referrals: Sloane Murphy DO [Primary Care Provider] - 01/03/18 4:15 pm Edmund Ritchie [Partnered Physician] - 12/31/17 3:30 pm
[2017-12-27] MEDS: Beclomethasone 80mcg MDI IH SCH ×2 (11:04→21:15)
[2017-12-27 12:13] LABS: Basophils % 0.7 %; Eosinophils # 0.2 K/mcL (0.0-0.6); Eosinophils % 3.7 %; Hematocrit 25.8 % (35.3-44.9); Hemoglobin 8.1 g/dL (11.5-15.4); Immature Granulocytes % 0.4 % (0-4); Lymphocytes # 0.8 K/mcL (0.6-4.6); Lymphocytes % 15.3 %; Mean Corpuscular HGB Conc 31.4 g/dL (31.6-35.5); Mean Corpuscular Hemoglobin 29.2 pg (28.0-33.3); Mean Corpuscular Volume 93.1 fL (83.0-100.0); Mean Platelet Volume 10.8 fL (9.4-12.4); Monocytes # 0.8 K/mcL (0.0-1.3); Monocytes % 13.8 %; Neutrophils # 3.6 K/mcL (1.6-8.9); Platelet Count 223 K/mcL (140-400); Red Blood Count 2.77 M/mcL (3.82-4.97); Red Cell Distribution Width 17.6 % (11.5-14.5); Segmented Neutrophils % 66.1 %
[2017-12-27] MEDS: Metoclopramide 10 MG/2 ML VIAL IVP SCH ×2 (13:08→22:18)
[2017-12-27] MEDS ORDERED: Clinimix E 5%-15% SOLUTION 2,000 ML with MVI, adult with vitamin K 10 ML, Magnesium S... IVC SCH (17:00)
[2017-12-27] MEDS: Clinimix E 5%-15% SOLUTION 2,000 ML with MVI, adult with vitamin K 10 ML, Magnesium S... IVC SCH (17:21)
[2017-12-28] MEDS: *HR* FentaNYL (PF) 100 MCG/2 ML VIAL IVP PRN (00:57)
[2017-12-28] MEDS: Insulin LISPRO 300 UNITS/3 ML VIAL SQ SCH ×5 (03:31→20:21)
[2017-12-28] MEDS: Levalbuterol Neb 0.63 MG/3 ML IH SCH ×4 (03:38→22:47)
[2017-12-28] MEDS: *HR* Metoprolol 5 MG/5 ML VIAL IVP SCH ×3 (05:56→17:55)
[2017-12-28] MEDS: Pantoprazole 40 MG VIAL IVP SCH ×2 (05:56→17:54)
[2017-12-28] MEDS: Cefepime HCl 1,000 MG in Water for inj. (sterile) 20 ML 10 ML IVP SCH ×2 (05:56→17:42)
[2017-12-28] MEDS: OXYCODONE Oral CONC 10 MG/0.5 ML ORAL.SYG SL PRN ×2 (06:03→15:06)
[2017-12-28 06:26] LABS: BUN/Creatinine Ratio 59 (6-26); Blood Urea Nitrogen 44 mg/dL (8-23); Carbon Dioxide 27 mEq/L (23-29); Chloride 102 mEq/L (98-107); Glucose 123 mg/dL (70-105); Magnesium 1.7 mg/dL (1.6-2.6); Osmolality,Calculated 291 (280-300); Phosphorous 3.6 mg/dL (2.7-4.5); Potassium 3.9 mEq/L (3.5-5.1); Sodium 134 mEq/L (136-145); eGFR For African Americans > 60 (> 60); eGFR For Non-African Americans > 60 (> 60)
[2017-12-28] MEDS ORDERED: Aminoglycoside Consult 1 EACH MC ONE (07:01)
[2017-12-28] MEDS: *HR* Digoxin 0.5 MG/2 ML AMPUL IVP SCH (08:12)
[2017-12-28] MEDS: Furosemide 40 MG/4 ML VIAL IVP SCH ×2 (08:17→17:41)
[2017-12-28 08:31] LABS: Basophils # 0.1 K/mcL (0.0-0.2); Eosinophils # 0.4 K/mcL (0.0-0.6); Eosinophils % 6.7 %; Hematocrit 22.7 % (35.3-44.9); Hemoglobin 7.4 g/dL (11.5-15.4); Immature Granulocytes % 0.6 % (0-4); Lymphocytes # 0.9 K/mcL (0.6-4.6); Lymphocytes % 16.7 %; Mean Corpuscular HGB Conc 32.6 g/dL (31.6-35.5); Mean Corpuscular Hemoglobin 30.8 pg (28.0-33.3); Mean Corpuscular Volume 94.6 fL (83.0-100.0); Mean Platelet Volume 10.9 fL (9.4-12.4); Monocytes # 0.9 K/mcL (0.0-1.3); Platelet Count 249 K/mcL (140-400); Red Cell Distribution Width 17.9 % (11.5-14.5)
--- NOTE | 2017-12-28 10:02 | Internal Med Progress Note ---
Date of Encounter: 12/28/17 Time of Encounter: 10:00 - Assessment and plan (1) Respiratory failure Current Visit: Yes Status: Acute Assessment and plan: Continues to slowly improve. Decrease Lasix to daily today. Wean oxygen to baseline. Qualifiers: Chronicity: acute Respiratory failure complication: hypoxia Qualified Code(s): J96.01 - Acute respiratory failure with hypoxia (2) Pulmonary edema Current Visit: No Status: Acute Assessment and plan: Improving slowly today. Decrease Lasix to daily. Qualifiers: Chronicity: acute Qualified Code(s): J81.0 - Acute pulmonary edema (3) Diastolic CHF, acute on chronic Current Visit: Yes Status: Acute Assessment and plan: Continues to slowly improve. (4) Chronic respiratory failure Current Visit: Yes Status: Chronic Assessment and plan: Supportive care. Qualifiers: Respiratory failure complication: hypoxia and hypercapnia Qualified Code(s) : J96.11 - Chronic respiratory failure with hypoxia; J96.12 - Chronic respiratory failure with hypercapnia (5) PAF (paroxysmal atrial fibrillation) Current Visit: No Status: Chronic Assessment and plan: No issues at this time. (6) Diabetes mellitus, type 2 Current Visit: No Status: Chronic Assessment and plan: Monitoring blood sugar and covering. Qualifiers: Diabetes mellitus ferry terminal agent insulin use: without retirement use Diabetes mellitus complication status: with hyperglycemia Qualified Code(s): E11.65 - Type 2 diabetes mellitus with hyperglycemia (7) HTN (hypertension) Current Visit: No Status: Chronic Assessment and plan: Controlled currently. Continue current meds. Qualifiers: Hypertension type: essential hypertension Qualified Code(s): I10 - Essential (primary) hypertension (8) Coronary artery disease Current Visit: Yes Status: Chronic Assessment and plan: Chronic issue. Qualifiers: Coronary Disease-Associated Artery/Lesion type: [place] artery [place] vs. transplanted heart: [place] heart Associated angina: without angina Qualified Code(s): I25.10 - Atherosclerotic heart disease of [place] coronary artery without angina pectoris (9) Acute blood loss anemia Current Visit: No Status: Acute Assessment and plan: Hemoglobin a little lower today. Will recheck in AM. May need further transfusion. (10) Gastric erosion with bleeding Current Visit: Yes Status: Acute Assessment and plan: Monitoring for signs of recurrent bleeding (11) Small bowel obstruction Current Visit: Yes Status: Acute Assessment and plan: Per surgery. (12) DVT prophylaxis Current Visit: No Status: Acute Assessment and plan: heparin SQ (13) Sacral decubitus ulcer Current Visit: No Status: Chronic Assessment and plan: Monitoring. Will plan for removal of rectal tube soon or at discharge. Qualifiers: Pressure ulcer stage: stage 2 Qualified Code(s): L89.152 - Pressure ulcer of sacral region, stage 2 (14) Fever Current Visit: Yes Status: Resolved Assessment and plan: Cultures negative thus far. Qualifiers: Fever type: unspecified Qualified Code(s): R50.9 - Fever, unspecified - Time Spent With Patient Total time spent is greater than 50% in coordination of care (as documented) at patient's floor/unit and/or counseling patient: - Subjective Interval history: Ms Hebert is currently admitted for acute bowel obstruction s/p laparotomy. She remains moderate to high risk due to potential for worsening clinical status. Ms Hebert has had no further fever. No CP. Breathing continues to slowly improve but not at baseline. Tolerated some food this AM. Remains on TPN. Still with rectal tube. Wound vac off. Pain tolerable. All cultures negative thus far. - Constitutional Vitals: Temp Pulse Resp BP Pulse Ox 99.1 F 94 16 97/58 97 12/28/17 07:39 12/28/17 08:49 12/28/17 07:39 12/28/17 07:39 12/28/17 07:39 General appearance: Present: A&O X 3, answers questions appropriately - Head Head exam: Present: normocephalic - Eye Eye exam: Present: conjuntiva pink - ENT ENT exam: Present: mucous membranes dry - Respiratory Respiratory exam: Present: decreased breath sounds, rhonchi. Absent: rales, wheezes - Cardiovascular Cardiovascular exam: Present: RRR. Absent: tachycardia - GI/Abdominal GI/Abdominal exam: Present: soft. Absent: distended - Extremities Exam Extremities exam: Present: warm. Absent: tenderness - Neurological Exam Neurological exam: Present: alert, oriented X3 - Skin Skin exam: Present: dry, warm Internal Medicine: Result - Labs CBC & Chem 7: 12/28/17 08:15 12/28/17 05:53 Labs: Short CBC 12/27/17 12/28/17 Range/Units 11:50 08:15 WBC 5.4 5.2 (4.3-11.1) K/mcL Hgb 8.1 L 7.4 L (11.5-15.4) g/dL Hct 25.8 L 22.7 L (35.3-44.9) % Plt Count 223 249 (140-400) K/mcL Neutrophils # 3.6 3.0 (1.6-8.9) K/mcL BMP 12/28/17 05:53 Sodium 134 L Potassium 3.9 Chloride 102 Carbon Dioxide 27 BUN 44 H Creatinine 0.74 Glucose 123 H Calcium 8.0 L - ABG Interpretation ABG results: ABG ABG pH 7.46 pH Units (7.32-7.45) H 12/21/17 16:34 ABG pCO2 68 mmHg (35-45) H 12/21/17 16:34 ABG pO2 59 mmHg (85-104) L 12/21/17 16:34 ABG O2 Saturation 90 % (95-98) L 12/21/17 16:34 PT/INR, D-dimer PT 11.9 Seconds (9.4-12.1) 12/22/17 20:40 - VTE Documentation of Mechanical Device: Intermittent pneumatic compression device Consult Discharge Plan - Plan Referrals: Sloane Murphy DO [Primary Care Provider] - 01/03/18 4:15 pm Edmund Ritchie [Partnered Physician] - 12/31/17 3:30 pm
--- NOTE | 2017-12-28 10:09 | General Surgery Progress Note ---
<Lobito Koehler - Last Filed: 12/28/17 14:02> Date of Encounter: 12/28/17 Time of Encounter: 10:07 - Assessment and Plan (1) Small bowel obstruction due to adhesions Current Visit: Yes Status: Acute POD #13 s/p exploratory celiotomy with lysis of adhesion secondary to partial SBO s/p EGD and PEG placement 12/23/2017. PEG to gravity I/O - 1280 ml yesterday, no gastric drainage No fever overnight. If returns further work-up. PLAN: Continue to attempt advancing to clear liquid diet - may use PEG tube for feeding Continue TPN until adequate caloric intake Wound care, wound vac intact - changed yesterday Continue supportive care, antiemetics, pain control, PPI, and Carafate Continue Peck for accurate I&O Rectal tube per primary team Transfuse PRBC per primary team Continue antibiotics per primary team (2) Anemia Current Visit: Yes Status: Acute Hgb stable at 7.4. No further episodes of bleeding - 10 U PRBCs total since admission s/p EGD 12/23/17: erosions and stigmata of bleeding no clot present within the stomach Recommended to continue Carafate. Continue to monitor H/H Qualifiers: Anemia type: unspecified type Qualified Code(s): D64.9 - Anemia, unspecified (3) Upper GI bleed Current Visit: Yes Status: Resolved (4) Acute on chronic respiratory failure Current Visit: Yes Status: Acute Reports improvement in her breathing. No changes on CXR. Management per primary team Qualifiers: Respiratory failure complication: hypoxia Qualified Code(s): J96.21 - Acute and chronic respiratory failure with hypoxia Subjective Patient reports: no new complaints, afebrile Narrative: Patient doing well with no complaints. No fevers overnight. Denies abdominal pain, but also did not eat yesterday. Will attempt to eat some breakfast. Denies N/V. + faltus and BM. Breathing improving. Objective Vital Signs - Last 8 Hours Temp Pulse Resp BP Pulse Ox 12/28/17 08:49 94 12/28/17 07:39 99.1 F 94 16 97/58 97 12/28/17 03:40 16 98 12/28/17 03:17 99.2 F 110 16 104/67 97 Intake and Output 12/27/17 12/28/17 12/28/17 23:59 07:59 15:59 Intake Total 260 / 260 260 / 260 600 / 600 Output Total 1600 / 1600 600 / 600 Balance -1340 / -1340 -340 / -340 600 / 600 Intake: IV Fluids 260 / 260 260 / 260 Maxipime 1,000 MG In Water for inj. (sterile) 10 ML @ 300 mls/ hr IVP Q12HR [facility] Rx#:[id number] Intralipid 20% 250 ML @ 21 mls/ 250 / 250 hr IVPB DAILY@1700 [facility] Rx#: [id number] Vancocin 1,000 MG In 0.9 % 250 / 250 Sodium Chloride 250 ML @ 167 mls/hr IVPB Q12H [facility] Rx#: [id number] Oral 480 / 480 Free Water Intake Amount 120 / 120 Output: Stool 100 / 100 150 / 150 Catheter 1500 / 1500 450 / 450 Urethral (Peck) 650 / 650 Other: Meal Breakfast Percent of Meal Consumed 90% Stool Consistency liquid Stool Color Green Weight 64.5 kg Blood Glucose* 149 148 Patient Weight 12/28/17 23:59 Weight 64.5 kg - Additional Exam VITAL SIGNS: Reviewed. See [employer] GENERAL: no apparent distress HEENT: Normocephalic, PER, EOMI, oropharynx pink/moist, no JVD noted CV: b/l rad pulses 2+, RRR, no murmurs or gallops, no JVD RESPIRATORY: Rales bilaterally. No wheezes ABD: soft, mild tenderness in RUQ and LUQ with palpation, no rebound/guarding/ rigidity, no peritoneal signs. Bowel sounds present INCISION: clean, dry, intact without purulence/bleeding/edema/rubor/calor WOUND VAC/DRAINS: Intact. Dark red fluid. PEG tube intact. No erythema, purulence, or warmth EXTREMITY: grossly normal motor function, no pedal edema, peripheral pulses 2+ b /l NEUROLOGIC EXAM: AOx3, obeys commands, no speech deficits PSYCHIATRIC: normal mood and affect SKIN: no gross lesions, rashes, or skin changes - Labs 12/28/17 08:15 12/28/17 05:53 Diabetes panel 12/28/17 Range/Units 05:53 Sodium 134 L (136-145) mEq/L Potassium 3.9 (3.5-5.1) mEq/L Chloride 102 (98-107) mEq/L Carbon Dioxide 27 (23-29) mEq/L BUN 44 H (8-23) mg/dL Creatinine 0.74 (0.60-1.20) mg/dL Glucose 123 H (70-105) mg/dL Calcium 8.0 L (8.6-10.3) mg/dL Calcium panel 12/28/17 Range/Units 05:53 Calcium 8.0 L (8.6-10.3) mg/dL Phosphorus 3.6 (2.7-4.5) mg/dL Pituitary panel 12/28/17 Range/Units 05:53 Sodium 134 L (136-145) mEq/L Potassium 3.9 (3.5-5.1) mEq/L Chloride 102 (98-107) mEq/L Carbon Dioxide 27 (23-29) mEq/L BUN 44 H (8-23) mg/dL Creatinine 0.74 (0.60-1.20) mg/dL Glucose 123 H (70-105) mg/dL Calcium 8.0 L (8.6-10.3) mg/dL Adrenal panel 12/28/17 Range/Units 05:53 Sodium 134 L (136-145) mEq/L Potassium 3.9 (3.5-5.1) mEq/L Chloride 102 (98-107) mEq/L Carbon Dioxide 27 (23-29) mEq/L BUN 44 H (8-23) mg/dL Creatinine 0.74 (0.60-1.20) mg/dL Glucose 123 H (70-105) mg/dL Calcium 8.0 L (8.6-10.3) mg/dL - VTE Documentation of Mechanical Device: Intermittent pneumatic compression device Consult Discharge Plan - Plan Referrals: Sloane Murphy DO [Primary Care Provider] - 01/03/18 4:15 pm <Nadeem Chauhan - Last Filed: 12/29/17 06:40> Date of Encounter: 12/28/17 Objective Vital Signs - Last 8 Hours Temp Pulse Resp BP Pulse Ox 12/29/17 04:04 100.8 F H 109 18 101/69 100 12/29/17 04:03 18 97 12/29/17 00:04 99.5 F 123 17 103/64 96 12/28/17 22:48 17 92 Intake and Output 12/28/17 12/28/17 12/29/17 15:59 23:59 07:59 Intake Total 890 / 890 250 / 250 0 / 0 Output Total 1250 / 1250 400 / 400 1400 / 1400 Balance -360 / -360 -150 / -150 -1400 / -1400 Intake: IV Fluids Maxipime 1,000 MG In Water for inj. (sterile) 10 ML @ 300 mls/ hr IVP Q12HR [facility] Rx#:[id number] Oral 530 / 530 Free Water Intake Amount 360 / 360 240 / 240 0 / 0 Output: Urine 400 / 400 Catheter 1250 / 1250 1400 / 1400 Other: Meal Lunch Dinner Percent of Meal Consumed 45% 50% Weight 63.8 kg Blood Glucose* 158 159 154 Patient Weight 12/29/17 23:59 Weight 63.8 kg - Labs 12/29/17 03:00 12/29/17 03:00 Diabetes panel 12/29/17 Range/Units 03:00 Sodium 136 (136-145) mEq/L Potassium 4.0 (3.5-5.1) mEq/L Chloride 103 (98-107) mEq/L Carbon Dioxide 27 (23-29) mEq/L BUN 36 H (8-23) mg/dL Creatinine 0.55 L (0.60-1.20) mg/dL Glucose 117 H (70-105) mg/dL Calcium 8.0 L (8.6-10.3) mg/dL Calcium panel 12/29/17 Range/Units 03:00 Calcium 8.0 L (8.6-10.3) mg/dL Phosphorus 2.4 L (2.7-4.5) mg/dL Pituitary panel 12/29/17 Range/Units 03:00 Sodium 136 (136-145) mEq/L Potassium 4.0 (3.5-5.1) mEq/L Chloride 103 (98-107) mEq/L Carbon Dioxide 27 (23-29) mEq/L BUN 36 H (8-23) mg/dL Creatinine 0.55 L (0.60-1.20) mg/dL Glucose 117 H (70-105) mg/dL Calcium 8.0 L (8.6-10.3) mg/dL Adrenal panel 12/29/17 Range/Units 03:00 Sodium 136 (136-145) mEq/L Potassium 4.0 (3.5-5.1) mEq/L Chloride 103 (98-107) mEq/L Carbon Dioxide 27 (23-29) mEq/L BUN 36 H (8-23) mg/dL Creatinine 0.55 L (0.60-1.20) mg/dL Glucose 117 H (70-105) mg/dL Calcium 8.0 L (8.6-10.3) mg/dL - Attending Attestation I examined this patient and my medical decision-making was reviewed with the Resident Physician. I agree with the documented findings, disposition and treatment plan as described except to the extent set forth below. I reviewed the above assessment and evaluation and agree with the above plan. TPN currently being continued. Patient started on tube feeds. At this time will continue with Reglan every 12 hours. Continue to monitor stool output ( rectal tube still in place). Patient still does admit to having flatus. States overall abdomen feels better. Continue with wound VAC.
[2017-12-28] MEDS: Metoclopramide 10 MG/2 ML VIAL IVP SCH ×2 (10:54→22:53)
[2017-12-28] MEDS: Beclomethasone 80mcg MDI IH SCH ×2 (11:26→22:47)
[2017-12-28] MEDS ORDERED: Clinimix E 5%-15% SOLUTION 2,000 ML with MVI, adult with vitamin K 10 ML, Magnesium S... IVC SCH (17:00)
[2017-12-29] MEDS: *HR* Metoprolol 5 MG/5 ML VIAL IVP SCH ×4 (00:23→19:08)
[2017-12-29] MEDS: Insulin LISPRO 300 UNITS/3 ML VIAL SQ SCH ×6 (00:23→20:18)
[2017-12-29] MEDS: OXYCODONE Oral CONC 10 MG/0.5 ML ORAL.SYG SL PRN ×2 (02:57→22:15)
[2017-12-29] MEDS ORDERED: 0.9 % Sodium Chloride 250 ML ONE (03:40)
[2017-12-29 03:47] LABS: BUN/Creatinine Ratio 65 (6-26); Blood Urea Nitrogen 36 mg/dL (8-23); Carbon Dioxide 27 mEq/L (23-29); Chloride 103 mEq/L (98-107); Glucose 117 mg/dL (70-105); Magnesium 1.4 mg/dL (1.6-2.6); Osmolality,Calculated 291 (280-300); Phosphorous 2.4 mg/dL (2.7-4.5); Sodium 136 mEq/L (136-145); eGFR For African Americans > 60 (> 60); eGFR For Non-African Americans > 60 (> 60)
[2017-12-29 03:52] LABS: Basophils % 0.6 %; Eosinophils # 0.4 K/mcL (0.0-0.6); Eosinophils % 6.2 %; Hematocrit 24.4 % (35.3-44.9); Hemoglobin 7.9 g/dL (11.5-15.4); Immature Granulocytes % 0.5 % (0-4); Lymphocytes # 1.1 K/mcL (0.6-4.6); Mean Corpuscular HGB Conc 32.4 g/dL (31.6-35.5); Mean Corpuscular Hemoglobin 30.7 pg (28.0-33.3); Mean Corpuscular Volume 94.9 fL (83.0-100.0); Mean Platelet Volume 10.9 fL (9.4-12.4); Monocytes # 1.2 K/mcL (0.0-1.3); Monocytes % 18.3 %; Neutrophils # 3.8 K/mcL (1.6-8.9); Platelet Count 308 K/mcL (140-400); Red Blood Count 2.57 M/mcL (3.82-4.97); Red Cell Distribution Width 17.5 % (11.5-14.5); Segmented Neutrophils % 57.4 %
[2017-12-29] MEDS: Levalbuterol Neb 0.63 MG/3 ML IH SCH ×4 (04:02→21:42)
[2017-12-29 04:30] LABS: Platelet Estimate Normal (Normal)
[2017-12-29 04:31] LABS: Anisocytosis 1+ (Not Present)
[2017-12-29] MEDS: Cefepime HCl 1,000 MG in Water for inj. (sterile) 20 ML 10 ML IVP SCH ×2 (05:40→19:08)
[2017-12-29] MEDS: Pantoprazole 40 MG VIAL IVP SCH ×2 (05:40→19:08)
[2017-12-29] MEDS ORDERED: Potassium Phosphate 44 MEQ in 0.9 % Sodium Chloride 250 ML IVPB ONE (06:36)
--- NOTE | 2017-12-29 09:26 | General Surgery Progress Note ---
<RodoLobito Payam - Last Filed: 12/29/17 09:23> Date of Encounter: 12/29/17 Time of Encounter: 09:23 - Assessment and Plan (1) Small bowel obstruction due to adhesions Status: Acute POD #14 s/p exploratory celiotomy with lysis of adhesion secondary to partial SBO s/p EGD and PEG placement 12/23/2017 I/O - 850 ml yesterday, -1400 ml today Mild temp up to 100.8 early this AM. No signs of infection PLAN: Continue to attempt advancing wiht soft diet and Ensure PEG feeding - increasing to 30ml/hr, dietary will reassess after 24 hours for increase Continue TPN until adequate caloric intake Replace electrolytes Wound care, wound vac intact - will change today Continue supportive care, antiemetics, pain control, PPI, and Carafate Continue Peck for accurate I&O Rectal tube per primary team Transfuse PRBC per primary team Continue antibiotics per primary team (2) Anemia Status: Acute Hgb stable at 7.9. No further episodes of bleeding - 10 U PRBCs total since admission s/p EGD 12/23/17: erosions and stigmata of bleeding no clot present within the stomach Recommended to continue Carafate. Continue to monitor H/H Qualifiers: Anemia type: unspecified type Qualified Code(s): D64.9 - Anemia, unspecified (3) Upper GI bleed Status: Resolved (4) Acute on chronic respiratory failure Status: Acute Reports improvement in her breathing. Management per primary team Qualifiers: Respiratory failure complication: hypoxia Qualified Code(s): J96.21 - Acute and chronic respiratory failure with hypoxia Subjective Patient reports: no new complaints Narrative: Patient with no new concerns. Still reporting some nausea, but no vomiting. Still not much PO intake. Started PEG tube feeds yesterday. + BM and flatus. Denies abdominal pain, chest pain, dysuria, or edema. Her breathing continues to improve slowly Objective Vital Signs - Last 8 Hours Temp Pulse Resp BP Pulse Ox 12/29/17 07:42 98.5 F 126 18 109/72 99 12/29/17 04:04 100.8 F H 109 18 101/69 100 12/29/17 04:03 18 97 Intake and Output 12/28/17 12/29/17 12/29/17 23:59 07:59 15:59 Intake Total 250 / 250 0 / 0 Output Total 400 / 400 1400 / 1400 Balance -150 / -150 -1400 / -1400 Intake: IV Fluids Maxipime 1,000 MG In Water for inj. (sterile) 10 ML @ 300 mls/ hr IVP Q12HR [facility] Rx#:[id number] Free Water Intake Amount 240 / 240 0 / 0 Output: Urine 400 / 400 Catheter 1400 / 1400 Other: Meal Dinner Percent of Meal Consumed 50% Weight 63.8 kg Blood Glucose* 159 222 Patient Weight 12/29/17 23:59 Weight 63.8 kg - Additional Exam VITAL SIGNS: Reviewed. See [facility] GENERAL: no apparent distress HEENT: Normocephalic, PER, EOMI, oropharynx pink/moist, no JVD noted CV: b/l rad pulses 2+, regular, tachycardia, no murmurs or gallops, no JVD RESPIRATORY: Rales bilaterally. No wheezes ABD: soft, nontender, nondistended, no rebound/guarding/rigidity, no peritoneal signs. Bowel sounds present INCISION: clean, dry, intact without purulence/bleeding/edema/rubor/calor WOUND VAC/DRAINS: Intact, minimal drainage from yesterday. PEG tube intact. No erythema, purulence, or warmth EXTREMITY: grossly normal motor function, no pedal edema, peripheral pulses 2+ b /l NEUROLOGIC EXAM: AOx3, obeys commands, no speech deficits PSYCHIATRIC: normal mood and affect SKIN: no gross lesions, rashes, or skin changes - Labs 12/29/17 03:00 12/29/17 03:00 Diabetes panel 12/29/17 Range/Units 03:00 Sodium 136 (136-145) mEq/L Potassium 4.0 (3.5-5.1) mEq/L Chloride 103 (98-107) mEq/L Carbon Dioxide 27 (23-29) mEq/L BUN 36 H (8-23) mg/dL Creatinine 0.55 L (0.60-1.20) mg/dL Glucose 117 H (70-105) mg/dL Calcium 8.0 L (8.6-10.3) mg/dL Calcium panel 12/29/17 Range/Units 03:00 Calcium 8.0 L (8.6-10.3) mg/dL Phosphorus 2.4 L (2.7-4.5) mg/dL Pituitary panel 12/29/17 Range/Units 03:00 Sodium 136 (136-145) mEq/L Potassium 4.0 (3.5-5.1) mEq/L Chloride 103 (98-107) mEq/L Carbon Dioxide 27 (23-29) mEq/L BUN 36 H (8-23) mg/dL Creatinine 0.55 L (0.60-1.20) mg/dL Glucose 117 H (70-105) mg/dL Calcium 8.0 L (8.6-10.3) mg/dL Adrenal panel 12/29/17 Range/Units 03:00 Sodium 136 (136-145) mEq/L Potassium 4.0 (3.5-5.1) mEq/L Chloride 103 (98-107) mEq/L Carbon Dioxide 27 (23-29) mEq/L BUN 36 H (8-23) mg/dL Creatinine 0.55 L (0.60-1.20) mg/dL Glucose 117 H (70-105) mg/dL Calcium 8.0 L (8.6-10.3) mg/dL - VTE Documentation of Mechanical Device: Intermittent pneumatic compression device Consult Discharge Plan - Plan Referrals: Sloane Murphy DO [Primary Care Provider] - (Patient went to [facility] no PCP appointment needed) Prescriptions: Digoxin [Lanoxin] 0.125 mg PO DAILY #1 tablet Furosemide [Lasix] 20 mg PO DAILY #1 tablet levoFLOXacin [Levaquin] 500 mg PO DAILY 5 Days #5 tablet Omeprazole [PriLOSEC] 20 mg PO BIDAC #2 cap Oxycodone HCl [Oxaydo] 5 mg PO Q6H PRN 1 Days #5 tablet.orl PRN Reason: Pain <Nadeem Chauhan - Last Filed: 12/30/17 17:42> Date of Encounter: 12/29/17 Objective Intake and Output 12/30/17 12/30/17 12/30/17 07:59 15:59 23:59 Intake Total 420 / 420 Output Total 185 / 185 Balance 235 / 235 Intake: Oral 240 / 240 Tube Feeding 180 / 180 Output: Catheter 185 / 185 Other: Weight 62.9 kg Blood Glucose* 122 Patient Weight 12/30/17 23:59 Weight 62.9 kg - Labs 12/30/17 03:43 12/30/17 03:43 Diabetes panel 12/30/17 Range/Units 03:43 Sodium 138 (136-145) mEq/L Potassium 4.3 (3.5-5.1) mEq/L Chloride 101 (98-107) mEq/L Carbon Dioxide 30 H (23-29) mEq/L BUN 32 H (8-23) mg/dL Creatinine 0.58 L (0.60-1.20) mg/dL Glucose 147 H (70-105) mg/dL Calcium 8.4 L (8.6-10.3) mg/dL Calcium panel 12/30/17 Range/Units 03:43 Calcium 8.4 L (8.6-10.3) mg/dL Phosphorus 3.2 (2.7-4.5) mg/dL Pituitary panel 12/30/17 Range/Units 03:43 Sodium 138 (136-145) mEq/L Potassium 4.3 (3.5-5.1) mEq/L Chloride 101 (98-107) mEq/L Carbon Dioxide 30 H (23-29) mEq/L BUN 32 H (8-23) mg/dL Creatinine 0.58 L (0.60-1.20) mg/dL Glucose 147 H (70-105) mg/dL Calcium 8.4 L (8.6-10.3) mg/dL Adrenal panel 12/30/17 Range/Units 03:43 Sodium 138 (136-145) mEq/L Potassium 4.3 (3.5-5.1) mEq/L Chloride 101 (98-107) mEq/L Carbon Dioxide 30 H (23-29) mEq/L BUN 32 H (8-23) mg/dL Creatinine 0.58 L (0.60-1.20) mg/dL Glucose 147 H (70-105) mg/dL Calcium 8.4 L (8.6-10.3) mg/dL - Attending Attestation I examined this patient and my medical decision-making was reviewed with the Resident Physician. I agree with the documented findings, disposition and treatment plan as described except to the extent set forth below. I reviewed the above assessment and evaluation and agree with the above- mentioned plan.
[2017-12-29] MEDS: Metoclopramide 10 MG/2 ML VIAL IVP SCH (09:53)
[2017-12-29] MEDS: Furosemide 40 MG/4 ML VIAL IVP SCH ×2 (09:53→16:16)
[2017-12-29] MEDS: *HR* Digoxin 0.5 MG/2 ML AMPUL IVP SCH (09:53)
[2017-12-29] MEDS: *HR* FentaNYL (PF) 100 MCG/2 ML VIAL IVP PRN (10:29)
[2017-12-29] MEDS: Beclomethasone 80mcg MDI IH SCH ×2 (11:15→21:43)
[2017-12-29 14:46] LABS: % Iron Saturation 8 % (15-50); Iron 14 mcg/dL (50-170); Transferrin 128 mg/dL (203-362)
--- NOTE | 2017-12-29 19:51 | Discharge Summary ---
- NOTES TO OUTPATIENT PROVIDER Notes to Outpatient Provider: Pt readmitted for presumed bowel obstruction. Had lap and now has PEG. Developed GI bleed and this has improved. Returning to [facility] bed. Orders not resulted at time of discharge: Pending orders 12/26/17 18:47 Culture,Blood [BC] Stat 12/26/17 19:09 Culture,Blood,Additional [BC] Stat 12/30/17 04:00 Basic Metabolic Panel AM 0400 Complete Blood Count [HEME] AM 0400 Magnesium AM 0400 Phosphorous AM 0400 12/31/17 04:00 Basic Metabolic Panel AM 0400 Complete Blood Count [HEME] AM 0400 Magnesium AM 0400 Phosphorous AM 0400 01/01/18 04:00 Basic Metabolic Panel AM 0400 Complete Blood Count [HEME] AM 0400 Magnesium AM 0400 Phosphorous AM 0400 01/02/18 04:00 Basic Metabolic Panel AM 0400 Complete Blood Count [HEME] AM 0400 Magnesium AM 0400 Phosphorous AM 0400 01/03/18 04:00 Basic Metabolic Panel AM 0400 Complete Blood Count [HEME] AM 0400 Magnesium AM 0400 Phosphorous AM 0400 Date of Encounter: 12/29/17 Time of Encounter: 16:00 - Discharge Diagnosis (1) Respiratory failure Priority: Primary Status: Acute Qualifiers: Chronicity: acute Respiratory failure complication: hypoxia Qualified Code(s): J96.01 - Acute respiratory failure with hypoxia (2) Pulmonary edema Priority: Secondary Status: Resolved Qualifiers: Chronicity: acute Qualified Code(s): J81.0 - Acute pulmonary edema (3) Diastolic CHF, acute on chronic Priority: Secondary Status: Resolved (4) Chronic respiratory failure Priority: Secondary Status: Chronic Qualifiers: Respiratory failure complication: hypoxia and hypercapnia Qualified Code(s) : J96.11 - Chronic respiratory failure with hypoxia; J96.12 - Chronic respiratory failure with hypercapnia (5) PAF (paroxysmal atrial fibrillation) Priority: Secondary Status: Chronic (6) Diabetes mellitus, type 2 Priority: Secondary Status: Chronic Qualifiers: Diabetes mellitus intermediate frame tender insulin use: without mcc use Diabetes mellitus complication status: with hyperglycemia Qualified Code(s): E11.65 - Type 2 diabetes mellitus with hyperglycemia (7) HTN (hypertension) Priority: Secondary Status: Chronic Qualifiers: Hypertension type: essential hypertension Qualified Code(s): I10 - Essential (primary) hypertension (8) Coronary artery disease Priority: Secondary Status: Chronic Qualifiers: Coronary Disease-Associated Artery/Lesion type: [place] artery [place] vs. transplanted heart: [place] heart Associated angina: without angina Qualified Code(s): I25.10 - Atherosclerotic heart disease of [place] coronary artery without angina pectoris (9) Acute blood loss anemia Priority: Secondary Status: Acute (10) Gastric erosion with bleeding Priority: Secondary Status: Acute (11) Small bowel obstruction Priority: Secondary Status: Acute (12) Sacral decubitus ulcer Priority: Secondary Status: Chronic Qualifiers: Pressure ulcer stage: stage 2 Qualified Code(s): L89.152 - Pressure ulcer of sacral region, stage 2 (13) Fever Priority: Secondary Status: Resolved Qualifiers: Fever type: unspecified Qualified Code(s): R50.9 - Fever, unspecified Hospital course: Ms. Hebert is a 67 year old female with hx of CHF and pulmonary hemorrhage recently admitted for SBO returned to hospital for similar symptoms. She was subsequently admitted. Ms Hebert was [facility]. She was evaluated by surgery and returned to OR for laparoscopy. No significant obstruction found. She had prolonged post op ileus and was started on TPN. She developed acute UGI bleed and was transferred to ICU. She received 6 units PRBCs. She continued on TPN. She underwent EGD and ultimately had PEG placed for nutrition and decompression of bowel. She transferred out of ICU but developed respirtory distress and moved to 2N. She was diuresed with improvement. Tube feeds and PO diet started and TPN stopped. Today she is afebrile and ready for discharge to swing bed. - Time Spent with Patient Total time spent providing and/or coordinating discharge services: 42min - Discharge Medications Prescriptions: Digoxin [Lanoxin] 0.125 mg PO DAILY #1 tablet Furosemide [Lasix] 20 mg PO DAILY #1 tablet levoFLOXacin [Levaquin] 500 mg PO DAILY 5 Days #5 tablet Omeprazole [PriLOSEC] 20 mg PO BIDAC #2 cap Oxycodone HCl [Oxaydo] 5 mg PO Q6H PRN 1 Days #5 tablet.orl PRN Reason: Pain Home Medications: Aspirin 81 mg PO DAILY 06/05/16 [History] Multivitamin [Multivitamins] 1 cap PO DAILY 06/05/16 [History] Ferrous Sulfate 325 mg PO DAILY 04/28/17 [History] Baclofen [Lioresal] 10 mg PO TID PRN 08/19/17 [History] Cholecalciferol (D-3) [Vitamin D] 2,000 unit PO DAILY #30 tablet 08/25/17 [Rx] Albuterol Sulfate [Ventolin Hfa] 2 puff IH Q6H PRN 09/11/17 [History] Beclomethasone Diprop 80mcg [QVAR 80 mcg] 1 puff IH BID 09/11/17 [History] BuPROPion XL (24 HR) [Wellbutrin Xl] 150 mg PO DAILY 09/11/17 [History] Cyanocobalamin (Vitamin B-12) [Vitamin B12] 1,000 mcg PO DAILY 10/29/17 [History ] Meclizine [Antivert] 25 mg PO DAILY PRN 10/29/17 [History] Oxygen 2 l .ROUTE AD 10/29/17 [History] Albuterol Neb [Proventil Neb] 2.5 mg IH Q2H PRN inhsol 11/07/17 [Rx] Nitroglycerin 0.4 mg SL Q5MIN PRN tab.subl 11/07/17 [Rx] Lipase/Protease/Amylase [Micky Ramos 6,000 Units Capsule] 2 each PO ACHS #240 capsule. 11/17/17 [Rx] Diltiazem CD (24hr) [Cardizem CD] 120 mg PO DAILY 11/27/17 [History] Magnesium Oxide [Mag-Ox] 400 mg PO TID 11/27/17 [History] GuaiFENesin Liq [Robitussin Liq] 200 mg PO Q6HR PRN udc 12/11/17 [Rx] Lactobacillus [Culturelle] 1 each PO BID cap.sprink 12/11/17 [Rx] Benzocaine/Menthol [Chloraseptic Sore Throat Lozng] 1 lozenge MM Q2H PRN box [Rx] Digoxin [Lanoxin] 0.125 mg PO DAILY #1 tablet 12/29/17 [Rx] Furosemide [Lasix] 20 mg PO DAILY #1 tablet 12/29/17 [Rx] Levalbuterol Neb [Xopenex Neb] 0.63 mg IH [id number] vial.neb 12/29/17 [Rx] Metoclopramide [Reglan] 10 mg PO BIDAC tablet 12/29/17 [Rx] Omeprazole [PriLOSEC] 20 mg PO BIDAC #2 cap 12/29/17 [Rx] Oxycodone HCl [Oxaydo] 5 mg PO Q6H PRN 1 Days #5 tablet.orl 12/29/17 [Rx] Saliva Stimulant [Biotene Moisturizing Rinse] 1 spray PO Q2H PRN bottle [Rx] Sucralfate [Carafate] 1 gm GTUBE QIDAC udc 12/29/17 [Rx] levoFLOXacin [Levaquin] 500 mg PO DAILY 5 Days #5 tablet 12/29/17 [Rx] Allergies/Adverse Reactions: 3 Allergy/AdvReac Type Severity Reaction Status Date / Time peanut Allergy Hives Verified 11/26/17 10:44 zinc Allergy Hives Verified 11/26/17 10:44 Sulfa (Sulfonamide AdvReac Mild constipatio Verified 11/26/17 10:44 Antibiotics) n Date of admission: 12/14/17 01:59 Primary care physician: Maribel Fernandez Consults: 12/14/17 02:01 Consult to Surgery [CONS] Routine Consulting Provider: Surgery [facility] Reason for Consult: SBO Call Completed: Yes 12/14/17 08:24 Consult to Sr Vice President [CONS] Routine Reason for SW Consult: patient from [facility] 12/15/17 11:44 dietary consult [Consult to Nutrition] [CONS] Routine Comment: Consulting Provider: NUTRITION Reason for Dietary Consult: TPN Start and Manage Other:: Verbal order per Melisa Parish CNP 12/16/17 07:33 Consult to Cardiology [CONS] Routine Comment: Consulting Provider: Cardiology [place] Reason for Consult: Atrial fibrillation, known to group. Call Completed: No 12/16/17 11:11 Consult to Physical Therapy [CONS] Routine Comment: Evaluate, develop and implement POC Reason for Consult: Admitted to SBO. S/P exploratory celiotomy. POD#1. Does patient have active BEDREST order?: No Is patient medically & hemodynamically stable?: Yes 12/16/17 11:25 Consult to Occupational Therapy [CONS] Routine Comment: Evaluate, develop and implement POC Reason for Consult: Mobilization and DC planning Does patient have active BEDREST order?: No Is patient medically & hemodynamically stable?: Yes Patient assessed for mobility or mobilized this visit?: No 12/21/17 13:24 Consult to Critical Care [CONS] Routine Consulting Provider: Pulm Crit Care & Sleep Tonie Reason for Consult: Hypotension, tachycardia with ICU transfer Time Notified: 13:15 Call Completed: Yes 12/28/17 11:19 consult to knitting demonstrator [Consult to Nutrition] [CONS] Routine Comment: Consulting Provider: NUTRITION Reason for Dietary Consult: Tube Feed Start & Manage Discharging clinician: [place] Anticipated date of discharge: 12/29/17 - Constitutional Vitals: Temp Pulse Resp BP Pulse Ox 98.6 F 100 16 101/65 100 12/29/17 19:48 12/29/17 19:48 12/29/17 19:48 12/29/17 19:48 12/29/17 19:48 General appearance: Present: A&O X 3, answers questions appropriately - Head Head exam: Present: normocephalic - Eye Eye exam: Present: conjuntiva pink - ENT ENT exam: Present: mucous membranes dry - Respiratory Respiratory exam: Present: rhonchi. Absent: rales, wheezes - Cardiovascular Cardiovascular exam: Absent: irregular rhythm, tachycardia - GI/Abdominal GI/Abdominal exam: Present: hypoactive bowel sounds, soft - Extremities Exam Extremities exam: Present: warm. Absent: tenderness - Neurological Exam Neurological exam: Present: alert, oriented X3 - Skin Skin exam: Present: dry, warm - Patient Status Disposition: Transfer SNF Condition: Fair Functional capacity at discharge: uses cane/walker Overall status at discharge: patient is progressing back to baseline - Discharge Instructions Follow Up With: Sloane Murphy DO [Primary Care Provider] - 01/03/18 4:15 pm - Diet and Activity Activity: increase activity as tolerated Diet: other (Mechanical soft) - VTE Documentation of Mechanical Device: Intermittent pneumatic compression device
--- NOTE | 2017-12-29 20:07 | Physician Discharge Referral ---
ExtendedCare Referral Info Transfer To: [facility] Provider in Charge after Transfer: PCP Institutional Level of Care: Skilled - Diagnosis (1) Respiratory failure Priority: Primary Status: Acute (2) Pulmonary edema Priority: Secondary Status: Resolved (3) Diastolic CHF, acute on chronic Priority: Secondary Status: Resolved (4) Chronic respiratory failure Priority: Secondary Status: Chronic (5) PAF (paroxysmal atrial fibrillation) Priority: Secondary Status: Chronic (6) Diabetes mellitus, type 2 Priority: Secondary Status: Chronic (7) HTN (hypertension) Priority: Secondary Status: Chronic (8) Coronary artery disease Priority: Secondary Status: Chronic (9) Acute blood loss anemia Priority: Secondary Status: Acute (10) Gastric erosion with bleeding Priority: Secondary Status: Acute (11) Small bowel obstruction Priority: Primary Status: Acute (12) Sacral decubitus ulcer Priority: Secondary Status: Chronic (13) Fever Priority: Secondary Status: Resolved Prognosis: Fair Aware of Diagnosis: Patient, Family Aware of Prognosis: Patient, Family - Transfer Medications Prescriptions: Digoxin [Lanoxin] 0.125 mg PO DAILY #1 tablet Furosemide [Lasix] 20 mg PO DAILY #1 tablet levoFLOXacin [Levaquin] 500 mg PO DAILY 5 Days #5 tablet Omeprazole [PriLOSEC] 20 mg PO BIDAC #2 cap Oxycodone HCl [Oxaydo] 5 mg PO Q6H PRN 1 Days #5 tablet.orl PRN Reason: Pain Home Medications: Aspirin 81 mg PO DAILY 06/05/16 [History] Multivitamin [Multivitamins] 1 cap PO DAILY 06/05/16 [History] Ferrous Sulfate 325 mg PO DAILY 04/28/17 [History] Baclofen [Lioresal] 10 mg PO TID PRN 08/19/17 [History] Cholecalciferol (D-3) [Vitamin D] 2,000 unit PO DAILY #30 tablet 08/25/17 [Rx] Albuterol Sulfate [Ventolin Hfa] 2 puff IH Q6H PRN 09/11/17 [History] Beclomethasone Diprop 80mcg [QVAR 80 mcg] 1 puff IH BID 09/11/17 [History] BuPROPion XL (24 HR) [Wellbutrin Xl] 150 mg PO DAILY 09/11/17 [History] Cyanocobalamin (Vitamin B-12) [Vitamin B12] 1,000 mcg PO DAILY 10/29/17 [History ] Meclizine [Antivert] 25 mg PO DAILY PRN 10/29/17 [History] Oxygen 2 l .ROUTE AD 10/29/17 [History] Albuterol Neb [Proventil Neb] 2.5 mg IH Q2H PRN inhsol 11/07/17 [Rx] Nitroglycerin 0.4 mg SL Q5MIN PRN tab.subl 11/07/17 [Rx] Lipase/Protease/Amylase [Micky Ramos 6,000 Units Capsule] 2 each PO ACHS #240 capsule. 11/17/17 [Rx] Diltiazem CD (24hr) [Cardizem CD] 120 mg PO DAILY 11/27/17 [History] Magnesium Oxide [Mag-Ox] 400 mg PO TID 11/27/17 [History] GuaiFENesin Liq [Robitussin Liq] 200 mg PO Q6HR PRN udc 12/11/17 [Rx] Lactobacillus [Culturelle] 1 each PO BID cap.sprink 12/11/17 [Rx] Benzocaine/Menthol [Chloraseptic Sore Throat Lozng] 1 lozenge MM Q2H PRN box [Rx] Digoxin [Lanoxin] 0.125 mg PO DAILY #1 tablet 12/29/17 [Rx] Furosemide [Lasix] 20 mg PO DAILY #1 tablet 12/29/17 [Rx] Levalbuterol Neb [Xopenex Neb] 0.63 mg IH [id number] vial.neb 12/29/17 [Rx] Metoclopramide [Reglan] 10 mg PO BIDAC tablet 12/29/17 [Rx] Omeprazole [PriLOSEC] 20 mg PO BIDAC #2 cap 12/29/17 [Rx] Oxycodone HCl [Oxaydo] 5 mg PO Q6H PRN 1 Days #5 tablet.orl 12/29/17 [Rx] Saliva Stimulant [Biotene Moisturizing Rinse] 1 spray PO Q2H PRN bottle [Rx] Sucralfate [Carafate] 1 gm GTUBE QIDAC udc 12/29/17 [Rx] levoFLOXacin [Levaquin] 500 mg PO DAILY 5 Days #5 tablet 12/29/17 [Rx] Allergies/Adverse Reactions: 3 Allergy/AdvReac Type Severity Reaction Status Date / Time peanut Allergy Hives Verified 11/26/17 10:44 zinc Allergy Hives Verified 11/26/17 10:44 Sulfa (Sulfonamide AdvReac Mild constipatio Verified 11/26/17 10:44 Antibiotics) n - Respiratory Orders Oxygen / L per min (Maintain saturation greater than 88%) Smoking Cessation: Smoking cessation has been advised. For more information, call the [place] Tobacco Quit Line at 7-712-DMKU-NOW. - Lab Orders Lab Orders: 2 Step Mantoux Test per State regulation - Ancillary Orders May use pressure relief devices daily prn, May go on XIAO w/family/respon democrat w /meds at nurse discretion PRN - Advance Directives Code Status: Full Code - Mobility Orders Ambulate - Rehabiliation Orders Rehab Potential: Fair Rehab Orders: Evaluation for Physical Therapy, Evaluation for Occupational Therapy - Treatments Skin tear care topically daily PRN per policy, May check for fecal impaction rectally daily PRN, Fleet enema rectally every other day PRN cleansing purposes - Diet Orders Mechanical Soft House Supplement per Dietary: Vanilla Ensure enlive at lunch Tube Feedings (type/amount/rate): Osmolite 1.2 @ 30ml/h - do not increase CERTIFICATION: I certify that the transfer of the above named patient to an Extended Care Facility is necessary for the continuing treatment of the diagnosis listed. The above information is true and accurate reflection of patient's current condition. Confidential - Redisclosure prohibited without a patient's written consent.
[2017-12-30] MEDS: *HR* Metoprolol 5 MG/5 ML VIAL IVP SCH ×2 (00:33→05:59)
[2017-12-30] MEDS: Insulin LISPRO 300 UNITS/3 ML VIAL SQ SCH ×3 (00:50→08:12)
[2017-12-30] MEDS: Levalbuterol Neb 0.63 MG/3 ML IH SCH (03:56)
[2017-12-30 04:02] LABS: Basophils # 0.1 K/mcL (0.0-0.2); Basophils % 0.9 %; Eosinophils # 0.2 K/mcL (0.0-0.6); Hematocrit 26.1 % (35.3-44.9); Hemoglobin 8.1 g/dL (11.5-15.4); Immature Granulocytes % 0.4 % (0-4); Immature Platelets 3.7 % (1.1-6.1); Lymphocytes # 1.2 K/mcL (0.6-4.6); Lymphocytes % 17.2 %; Mean Corpuscular Hemoglobin 29.1 pg (28.0-33.3); Mean Corpuscular Volume 93.9 fL (83.0-100.0); Mean Platelet Volume 10.8 fL (9.4-12.4); Monocytes # 1.1 K/mcL (0.0-1.3); Monocytes % 16.3 %; Neutrophils # 4.3 K/mcL (1.6-8.9); Platelet Count 318 K/mcL (140-400); Red Blood Count 2.78 M/mcL (3.82-4.97); Red Cell Distribution Width 17.3 % (11.5-14.5); Segmented Neutrophils % 62.2 %
[2017-12-30 04:46] LABS: BUN/Creatinine Ratio 55 (6-26); Blood Urea Nitrogen 32 mg/dL (8-23); Calcium 8.4 mg/dL (8.6-10.3); Carbon Dioxide 30 mEq/L (23-29); Chloride 101 mEq/L (98-107); Glucose 147 mg/dL (70-105); Magnesium 1.6 mg/dL (1.6-2.6); Osmolality,Calculated 296 (280-300); Phosphorous 3.2 mg/dL (2.7-4.5); Potassium 4.3 mEq/L (3.5-5.1); Sodium 138 mEq/L (136-145); eGFR For African Americans > 60 (> 60); eGFR For Non-African Americans > 60 (> 60)
[2017-12-30] MEDS: Cefepime HCl 1,000 MG in Water for inj. (sterile) 20 ML 10 ML IVP SCH (05:58)
[2017-12-30] MEDS: Pantoprazole 40 MG VIAL IVP SCH (05:59)
[2017-12-30 07:24] VITALS: BP 99/73
[2017-12-30] MEDS: Furosemide 40 MG/4 ML VIAL IVP SCH (08:13)
[2017-12-30] MEDS: *HR* Digoxin 0.5 MG/2 ML AMPUL IVP SCH (08:21)
== END 2017-12-30 09:27 | disposition other institution (70) | DRG 335 ==
LOC: 3BNU → SUATTDRO 12-14 01:59 → 2NENU 12-19 18:45 → ICNU 12-21 14:12 → 2NENU 12-24 14:22 → 2NNU 12-25 13:02
PROVIDERS: ADMIT Internal Medicine; ATTEND Internal Medicine

== ENCOUNTER 2018-01-11 16:43 | Inpatient (IN) ==
--- NOTE | 2018-01-11 16:53 | Emergency Department Note ---
Disposition Clinical Impression: Atrial flutter Qualifiers: Atrial flutter type: unspecified Qualified Code(s): I48.92 - Unspecified atrial flutter Disposition: Admitted As Inpatient Condition: Fair Referrals: Sloane Murphy DO [Primary Care Provider] - Forms: ED Satisfaction Letter Time of Disposition: 17:04 Arrhythmia/Palpitations HPI - General Chief Complaint: ED Arrhythmia/Palpitations Stated Complaint: Afib RVR from surgery Time Seen by Provider: 01/11/18 16:48 Source: patient, EMS Mode of arrival: EMS Limitations: no limitations Nursing Notes Reviewed: Yes Vital Signs Reviewed: Yes - History of Present Illness HPI Narrative: 67-year-old whose undergone a couple of abdominal surgeries recently for adhesions has a wound VAC in place was seen in surgery today is noted to be tachycardic and appeared to be in A. fib. Patient has had a history of atrial fibrillation for the last 3 years also had some V. fib. Patient has a history of pacemaker defibrillator also. 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 Context: occurred during rest Arrhythmia History: atrial fibrillation Associated symptoms: Reports: other (Generalized weakness) - Related Data Home Medications Medication Instructions Recorded Confirmed Aspirin 81 mg PO DAILY 06/05/16 01/11/18 Multivitamin [Multivitamins] 1 cap PO DAILY 06/05/16 01/11/18 Ferrous Sulfate 325 mg PO DAILY 04/28/17 01/11/18 Baclofen [Lioresal] 10 mg PO TID PRN 08/19/17 01/11/18 Albuterol Sulfate [Ventolin Hfa] 2 puff IH Q6H PRN 09/11/17 01/11/18 Beclomethasone Diprop 80mcg [QVAR 1 puff IH BID 09/11/17 01/11/18 80 mcg] BuPROPion XL (24 HR) [Wellbutrin 150 mg PO DAILY 09/11/17 01/11/18 Xl] Cyanocobalamin (Vitamin B-12) 1,000 mcg PO DAILY 10/29/17 01/11/18 [Vitamin B12] Meclizine [Antivert] 25 mg PO DAILY PRN 10/29/17 01/11/18 Oxygen 2 l .ROUTE AD 10/29/17 01/11/18 Diltiazem CD (24hr) [Cardizem CD] 120 mg PO DAILY 11/27/17 01/11/18 Magnesium Oxide [Mag-Ox] 400 mg PO TID 11/27/17 01/11/18 Previous Rx's Medication Instructions Recorded Cholecalciferol (D-3) [Vitamin D] 2,000 unit PO DAILY #30 tablet 08/25/17 Albuterol Neb [Proventil Neb] 2.5 mg IH Q2H PRN inhsol 11/07/17 Nitroglycerin 0.4 mg SL Q5MIN PRN tab.subl 11/07/17 Lipase/Protease/Amylase [Creon Dr 2 each PO ACHS #240 capsule.dr 11/17/17 6,000 Units Capsule] GuaiFENesin Liq [Robitussin Liq] 200 mg PO Q6HR PRN udc 12/11/17 Lactobacillus [Culturelle] 1 each PO BID cap.sprink 12/11/17 Benzocaine/Menthol [Chloraseptic 1 lozenge MM Q2H PRN box 12/29/17 Sore Throat Lozng] Digoxin [Lanoxin] 0.125 mg PO DAILY #1 tablet 12/29/17 Furosemide [Lasix] 20 mg PO DAILY #1 tablet 12/29/17 Levalbuterol Neb [Xopenex Neb] 0.63 mg IH [id number] vial.neb 12/29/17 Metoclopramide [Reglan] 10 mg PO BIDAC tablet 12/29/17 Omeprazole [PriLOSEC] 20 mg PO BIDAC #2 cap 12/29/17 Oxycodone HCl [Oxaydo] 5 mg PO Q6H PRN 1 Days #5 12/29/17 tablet.orl Saliva Stimulant [Biotene 1 spray PO Q2H PRN bottle 12/29/17 Moisturizing Rinse] Sucralfate [Carafate] 1 gm GTUBE QIDAC udc 12/29/17 Allergies Allergy/AdvReac Type Severity Reaction Status Date / Time peanut Allergy Hives Verified 11/26/17 10:44 zinc Allergy Hives Verified 11/26/17 10:44 Sulfa (Sulfonamide AdvReac Mild constipatio Verified 11/26/17 10:44 Antibiotics) n All systems ED: reviewed and negative except as stated. Constitutional: Denies: fever, chills, weakness, weight change Eyes: Denies: eye pain, eye discharge, vision change ENT ED: Denies: ear pain, throat pain, dental pain, hearing loss, epistaxis, congestion, dysphagia Cardiovascular: Denies: chest pain, palpitations, dyspnea on exertion, edema, syncope Respiratory: Denies: cough, dyspnea, wheezes, hemoptysis, stridor Gastrointestinal: Denies: abdominal pain, nausea, vomiting, diarrhea, constipation, hematemesis, melena, hematochezia Genitourinary: Denies: dysuria, frequency, hematuria, discharge Musculoskeletal: Denies: back pain, neck pain, arthralgia, myalgia Integumentary: Denies: rash, abrasion, lesions Neurological: Denies: headache, weakness, numbness, paresthesias, confusion, abnormal gait, vertigo Psychiatric: Denies: anxiety, depression, suicidal thoughts, homicidal thoughts , auditory hallucinations, visual hallucinations Endocrine: Denies: fatigue Hematological/Lymphatic: Denies: easy bleeding, easy bruising Allergic/Immunologic: Denies: facial swelling, urticaria Past Medical History - Past Medical History Medical history: Reports: atrial fibrillation, CHF, COPD, coronary artery disease, diabetes, hyperlipidemia, hypertension, myocardial infarction, other Surgical history: Reports: hysterectomy, orthopedic, other, pacemaker/AICD, other Psychiatric history: Reports: no psych history BAR STAFF history: Reports: no BAR STAFF history - Social History Smoking Status: Never smoker Smokeless Tobacco Status: No Alcohol use: Reports: none Drug use: Reports: none Physical Exam - General Limitations: no limitations General appearance: alert, in no apparent distress - Head Head exam: atraumatic, normocephalic, normal inspection - Eye Eye exam: Present: normal appearance, PERRL, EOMI - ENT ENT exam: normal exam, normal oropharynx, mucous membranes moist - Neck Neck exam: Present: normal inspection, full ROM, trachea midline - Chest Chest inspection: Present: normal inspection, symmetric chest wall rise - Respiratory Respiratory exam: Present: normal lung sounds bilaterally - Cardiovascular Cardiovascular exam: Present: regular rate, normal rhythm, normal heart sounds - Abdominal Exam Abdominal exam: Present: soft, tenderness, other. Absent: distention, guarding , rebound, rigidity - Extremities Exam Extremities exam: Present: normal inspection, full ROM. Absent: tenderness, pedal edema - Expanded Lower Extremity Exam Neurovascular/Tendon exam: Absent: motor deficit, sensory deficit, tendon deficit - Back Exam Back exam: Present: normal inspection, full ROM. Absent: tenderness - Neurological Exam Neurological exam: Present: alert, oriented X3 - Psychiatric Psychiatric exam: Present: normal affect, normal mood - Skin Skin exam: Present: warm, dry, intact, normal color Course - Reevaluation(s) Reevaluation #1: 67-year-old with a history of A. fib comes in with a flutter. Consultation obtained cardiology we will start Cardizem and admit. Time: 19:30 - Consultations Consultation #1: Discussed with Dr. Forde he will see in consult. Time: 18:29 Consultation #2: Discussed with Dr. Lan, admit. Time: 19:30 Vital Signs Temperature 97.9 F 01/11/18 16:44 Pulse Rate 121 01/11/18 16:44 Respiratory Rate 14 01/11/18 16:44 Blood Pressure 102/67 01/11/18 16:44 O2 Sat by Pulse Oximetry 98 01/11/18 16:44 Temperature 97.9 F 01/11/18 16:44 Pulse Rate 121 01/11/18 16:44 Respiratory Rate 14 01/11/18 16:44 Blood Pressure 102/67 01/11/18 16:44 O2 Sat by Pulse Oximetry 98 01/11/18 16:44 Oxygen Delivery Oxygen Delivery Nasal Cannula Arrhythmia/Palpitations - Lab Data Result diagrams: 01/11/18 16:55 01/11/18 16:55 Lab Results 01/11/18 01/11/18 01/11/18 Range/Units 16:55 16:55 16:55 WBC 14.2 H D (4.3-11.1) K/mcL RBC 3.75 L (3.82-4.97) M/mcL Hgb 10.8 L D (11.5-15.4) g/dL Hct 34.1 L (35.3-44.9) % MCV 90.9 (83.0-100.0) fL MCH 28.8 (28.0-33.3) pg MCHC 31.7 (31.6-35.5) g/dL RDW 17.1 H (11.5-14.5) % Plt Count 538 H (140-400) K/mcL MPV 10.2 (9.4-12.4) fL Immature Gran % 0.3 (0-4) % Seg Neutrophils % 75.9 % Lymphocytes % 14.5 % Monocytes % 8.5 % Eosinophils % 0.4 % Basophils % 0.4 % Neutrophils # 10.8 H (1.6-8.9) K/mcL Lymphocytes # 2.1 (0.6-4.6) K/mcL Monocytes # 1.2 (0.0-1.3) K/mcL Eosinophils # 0.1 (0.0-0.6) K/mcL Basophils # 0.1 (0.0-0.2) K/mcL PT 13.4 H (9.4-12.1) Seconds INR 1.2 APTT 30.6 (26.0-36.0) Seconds Sodium 135 L (136-145) mEq/L Potassium 4.2 (3.5-5.1) mEq/L Chloride 101 (98-107) mEq/L Carbon Dioxide 25 (23-29) mEq/L BUN 25 H (8-23) mg/dL Creatinine 0.51 L (0.60-1.20) mg/dL Est GFR ( Amer) > 60 (> 60) Est GFR (Non-Af Amer) > 60 (> 60) BUN/Creatinine Ratio 49 H (6-26) Glucose 67 L (70-105) mg/dL Calculated Osmolality 283 (280-300) Calcium 8.0 L (8.6-10.3) mg/dL Troponin I 0.03 (< 0.04) ng/mL TSH 3.570 (0.340-5.600) mcIU/mL - EKG Data EKG attestation: Yes I reviewed and interpreted this EKG. Rate: tachycardia Rhythm: A.Fib Interpretation: nonspecific ST-T wave changes
[2018-01-11] MEDS ORDERED: 0.9 % Sodium Chloride 500 ML IVC ONE (17:03)
[2018-01-11 17:38] LABS: Basophils # 0.1 K/mcL (0.0-0.2); Basophils % 0.4 %; Eosinophils # 0.1 K/mcL (0.0-0.6); Eosinophils % 0.4 %; Hematocrit 34.1 % (35.3-44.9); Hemoglobin 10.8 g/dL (11.5-15.4); Immature Granulocytes % 0.3 % (0-4); Lymphocytes # 2.1 K/mcL (0.6-4.6); Lymphocytes % 14.5 %; Mean Corpuscular HGB Conc 31.7 g/dL (31.6-35.5); Mean Corpuscular Hemoglobin 28.8 pg (28.0-33.3); Mean Corpuscular Volume 90.9 fL (83.0-100.0); Mean Platelet Volume 10.2 fL (9.4-12.4); Monocytes # 1.2 K/mcL (0.0-1.3); Monocytes % 8.5 %; Neutrophils # 10.8 K/mcL (1.6-8.9); Platelet Count 538 K/mcL (140-400); Red Blood Count 3.75 M/mcL (3.82-4.97); Red Cell Distribution Width 17.1 % (11.5-14.5); Segmented Neutrophils % 75.9 %
[2018-01-11 17:50] LABS: INR 1.2; Prothrombin Time 13.4 Seconds (9.4-12.1)
[2018-01-11 17:51] LABS: BUN/Creatinine Ratio 49 (6-26); Blood Urea Nitrogen 25 mg/dL (8-23); Carbon Dioxide 25 mEq/L (23-29); Chloride 101 mEq/L (98-107); Glucose 67 mg/dL (70-105); Osmolality,Calculated 283 (280-300); Potassium 4.2 mEq/L (3.5-5.1); Sodium 135 mEq/L (136-145); Troponin I 0.03 ng/mL (< 0.04); eGFR For African Americans > 60 (> 60); eGFR For Non-African Americans > 60 (> 60)
[2018-01-11 17:52] LABS: Activated Partial Thrombo Time 30.6 Seconds (26.0-36.0)
[2018-01-12] MEDS ORDERED: Acetaminophen 325 MG TABLET PO PRN (00:20)
[2018-01-12] MEDS ORDERED: Naloxone 0.4 MG/ML INJ IVP PRN (00:20)
[2018-01-12] MEDS ORDERED: GuaiFENesin Liq 200 MG/10 ML UDC PO PRN (00:28)
[2018-01-12] MEDS ORDERED: Nitroglycerin 0.4 MG TAB.SUBL SL PRN (00:28)
[2018-01-12] MEDS ORDERED: Albuterol 2.5 MG/3 ML NEBULIZER IH PRN (00:28)
[2018-01-12] MEDS ORDERED: *HR* OxyCODONE Immed Rel 5 MG TABLET PO PRN (00:28)
[2018-01-12] MEDS ORDERED: Baclofen 10 MG TABLET PO PRN (00:28)
[2018-01-12] MEDS ORDERED: Saliva Stimulant 100ml BOTTLE PO PRN (00:28)
[2018-01-12] MEDS ORDERED: BENZOCAINE/MENTHOL 1 LOZENGE (BAG OF 6) MM PRN (00:28)
--- NOTE | 2018-01-12 00:43 | Internal Med History&Physical ---
Date of Encounter: 01/11/18 Time of Encounter: 23:00 Internal Medicine - H&P: HPI Chief complaint: Tachycardia Admitted From: Home Plans for Post Hospital Care: Home History of present illness: Ms. Hebert is a 67 year old female sent from surgery office for tachycardia. Past medical history is significant for COPD, LUIS, hypertension, CAD, A. fib, hyperlipidemia, small bowel obstruction S/P surgery recently on 12/27. Patient went to see surgery in office today for postoperative follow-up. She was found tachycardia. Patient was advised that to come to ER for further management. Patient denies chest pain, shortness of breath, hypertension, nausea or vomiting. Patient has a chronic cough for long time with clear sputum. Patient denies fever. In the emergency room, patient was found A. fib with rapid ventricular response. Cardizem drip started. Patient was admitted for further management. Past Med Surg Social Fam HX - Past Medical History Medical history: atrial fibrillation, CHF, COPD, coronary artery disease, diabetes, hyperlipidemia, hypertension, myocardial infarction, other Additional medical history: IBS Psychiatric history: no psych history - Past Surgical History Surgical History: hysterectomy, orthopedic, other, pacemaker/AICD, other Additional surgical history: dawit knee replacement. achilles tendons sx - Social History Smoking Status: Never smoker Smokeless Tobacco Status: No Alcohol use: none Drug use: none - Family History Father Adopted: No Family Member Ethnicity: Non- Living Status: Age at : 89 Cause of : Alzheimers Hx Family Cardiac Disorders: No Hx Family Respiratory Disorders: Yes (COPD) Hx Family Cancer: No Hx Family GI Disorders: No Hx Family Genitourinary Disorders: No Hx Family Endocrine Disorder: No Hx Family Musculoskeletal Disorders: No Hx Family Neuromuscular Disorders: No Hx Family Neurologic Disorders: No Hx Family HEENT Disorders: No Hx Family Autoimmune Disorders: No Hx Family Reproductive Disorders: No Hx Family Psychosocial Disorders: No Hx Family Medical Disorders: No Mother Living Status: Hx Family Cardiac Disorders: Yes Hx Family Endocrine Disorder: Yes Internal Medicine - H&P: Meds Aspirin 81 mg PO DAILY 06/05/16 [History] Multivitamin [Multivitamins] 1 cap PO DAILY 06/05/16 [History] Ferrous Sulfate 325 mg PO DAILY 04/28/17 [History] Baclofen [Lioresal] 10 mg PO TID PRN 08/19/17 [History] Cholecalciferol (D-3) [Vitamin D] 2,000 unit PO DAILY #30 tablet 08/25/17 [Rx] Albuterol Sulfate [Ventolin Hfa] 2 puff IH Q6H PRN 09/11/17 [History] Beclomethasone Diprop 80mcg [QVAR 80 mcg] 1 puff IH BID 09/11/17 [History] BuPROPion XL (24 HR) [Wellbutrin Xl] 150 mg PO DAILY 09/11/17 [History] Cyanocobalamin (Vitamin B-12) [Vitamin B12] 1,000 mcg PO DAILY 10/29/17 [History ] Meclizine [Antivert] 25 mg PO DAILY PRN 10/29/17 [History] Oxygen 2 l .ROUTE AD 10/29/17 [History] Albuterol Neb [Proventil Neb] 2.5 mg IH Q2H PRN inhsol 11/07/17 [Rx] Nitroglycerin 0.4 mg SL Q5MIN PRN tab.subl 11/07/17 [Rx] Lipase/Protease/Amylase [Creon Dr 6,000 Units Capsule] 2 each PO ACHS #240 capsule. 11/17/17 [Rx] Diltiazem CD (24hr) [Cardizem CD] 120 mg PO DAILY 11/27/17 [History] Magnesium Oxide [Mag-Ox] 400 mg PO TID 11/27/17 [History] GuaiFENesin Liq [Robitussin Liq] 200 mg PO Q6HR PRN udc 12/11/17 [Rx] Lactobacillus [Culturelle] 1 each PO BID cap.sprink 12/11/17 [Rx] Benzocaine/Menthol [Chloraseptic Sore Throat Lozng] 1 lozenge MM Q2H PRN box [Rx] Digoxin [Lanoxin] 0.125 mg PO DAILY #1 tablet 12/29/17 [Rx] Furosemide [Lasix] 20 mg PO DAILY #1 tablet 12/29/17 [Rx] Levalbuterol Neb [Xopenex Neb] 0.63 mg IH [id number] vial.neb 12/29/17 [Rx] Metoclopramide [Reglan] 10 mg PO BIDAC tablet 12/29/17 [Rx] Omeprazole [PriLOSEC] 20 mg PO BIDAC #2 cap 12/29/17 [Rx] Oxycodone HCl [Oxaydo] 5 mg PO Q6H PRN 1 Days #5 tablet.orl 12/29/17 [Rx] Saliva Stimulant [Biotene Moisturizing Rinse] 1 spray PO Q2H PRN bottle [Rx] Sucralfate [Carafate] 1 gm GTUBE QIDAC udc 12/29/17 [Rx] 3 Allergy/AdvReac Type Severity Reaction Status Date / Time peanut Allergy Hives Verified 11/26/17 10:44 zinc Allergy Hives Verified 11/26/17 10:44 Sulfa (Sulfonamide AdvReac Mild constipatio Verified 11/26/17 10:44 Antibiotics) n All Systems PM: A 10-system review of systems was performed and is negative for pertinent findings except as documented above in the HPI. - Constitutional Vitals: Temp Pulse Resp BP Pulse Ox 98.2 F 114 16 108/67 97 01/11/18 23:05 01/11/18 23:05 01/11/18 23:05 01/11/18 23:05 01/11/18 23:05 General appearance: Present: A&O X 3, no acute distress, answers questions appropriately - Head Head exam: Present: atraumatic, normocephalic - Eye Eye exam: Present: PERRL, conjuntiva pink, sclera anicteric Pupils: Present: PERRL - Neck Neck exam general surgery: Present: supple, trachea midline. Absent: lymphadenopathy - Respiratory Respiratory exam: Present: CTAB. Absent: accessory muscle use, rales, rhonchi, wheezes Additional comments: Coarse breath sounds bilaterally - Cardiovascular Cardiovascular exam: Present: irregular rhythm, +S1, +S2, tachycardia. Absent: diastolic murmur, gallop, rubs, systolic murmur - GI/Abdominal GI/Abdominal exam: Present: normal bowel sounds, soft, no peritoneal signs. Absent: distended, tenderness - Extremities Exam Extremities exam: Present: warm, radial pulses palpable and symmetrical. Absent : calf tenderness, cyanotic, pedal edema - Neurological Exam Neurological exam: Present: CN II-XII intact, oriented X3, no focal deficits. Absent: pronater drift, facial droop, speech deficit - Skin Skin exam: Present: dry, intact Internal Med - H&P Results - Labs CBC & Chem 7: 01/11/18 16:55 01/11/18 16:55 - Assessment and plan (1) Atrial fibrillation with RVR Current Visit: Yes Status: Acute Assessment and plan: Patient has history of A. fib. On by mouth Cardizem for rate control. On aspirin for CVA prevention. Patient is not on any anticoagulation because of history of GI bleed. Patient has tachycardia, consider A. fib RVR. - Continue Cardizem drip. Continuous cardiac monitoring. May switch to by mouth Cardizem if heart rate is well controlled. - Check potassium, magnesium. Patient has normal TSH in ER. (2) HCAP (healthcare-associated pneumonia) Current Visit: Yes Status: Acute Assessment and plan: Patient has chronic a cough. She has recent hospitalization for small bowel obstruction. Patient has leukocytosis and chest x-ray shows possible pneumonia. - We will treat patient with Vanco, cefepime, and Levaquin - Follow up blood culture - CT chest without contrast. (3) COPD (chronic obstructive pulmonary disease) Current Visit: Yes Status: Acute Assessment and plan: No wheezing at this point. Continue home medications. Qualifiers: COPD type: emphysema Emphysema type: unspecified Qualified Code(s): J43.9 - Emphysema, unspecified (4) LUIS on CPAP Current Visit: No Status: Chronic Assessment and plan: Continue CPAP during night. (5) Small bowel obstruction Current Visit: No Status: Acute Assessment and plan: S/P surgery. Has abdominal wound on wound VAC. Patient has a poor appetite. - Consult dietitian for nutrition supplement. - Consul Wound Care for wound. - Time Spent With Patient Total time spent is greater than 50% in coordination of care (as documented) at patient's floor/unit and/or counseling patient: 40 minutes Greater than 35 minutes
[2018-01-12 01:02] LABS: Basophils # 0.1 K/mcL (0.0-0.2); Basophils % 0.5 %; Eosinophils # 0.1 K/mcL (0.0-0.6); Eosinophils % 0.9 %; Hematocrit 34.7 % (35.3-44.9); Hemoglobin 10.9 g/dL (11.5-15.4); Immature Granulocytes % 0.3 % (0-4); Lymphocytes # 1.8 K/mcL (0.6-4.6); Lymphocytes % 14.4 %; Mean Corpuscular HGB Conc 31.4 g/dL (31.6-35.5); Mean Corpuscular Hemoglobin 28.8 pg (28.0-33.3); Mean Corpuscular Volume 91.8 fL (83.0-100.0); Mean Platelet Volume 10.1 fL (9.4-12.4); Monocytes # 1.1 K/mcL (0.0-1.3); Monocytes % 8.9 %; Neutrophils # 9.6 K/mcL (1.6-8.9); Platelet Count 465 K/mcL (140-400); Red Blood Count 3.78 M/mcL (3.82-4.97); Red Cell Distribution Width 17.1 % (11.5-14.5)
[2018-01-12 01:13] LABS: BUN/Creatinine Ratio 48 (6-26); Blood Urea Nitrogen 23 mg/dL (8-23); Calcium 8.2 mg/dL (8.6-10.3); Carbon Dioxide 24 mEq/L (23-29); Chloride 102 mEq/L (98-107); Glucose 65 mg/dL (70-105); Magnesium 1.6 mg/dL (1.6-2.6); Osmolality,Calculated 284 (280-300); Phosphorous 2.6 mg/dL (2.7-4.5); Potassium 3.9 mEq/L (3.5-5.1); Sodium 136 mEq/L (136-145); eGFR For African Americans > 60 (> 60); eGFR For Non-African Americans > 60 (> 60)
[2018-01-12] MEDS ORDERED: Levalbuterol Neb 0.63 MG/3 ML IH PRN (01:35)
[2018-01-12] MEDS ORDERED: 0.9 % Sodium Chloride 1,000 ML ONE (02:41)
[2018-01-12] MEDS ORDERED: Levalbuterol Neb 0.63 MG/3 ML IH SCH (04:00)
[2018-01-12] MEDS ORDERED: Aminoglycoside Consult 1 EACH MC ONE (07:53)
[2018-01-12] MEDS: Lactobacillus 1 EACH CAP.SPRINK PO SCH ×2 (08:16→21:13)
[2018-01-12] MEDS: Cholecalciferol (D-3) 1,000 UNIT TABLET PO SCH (08:16)
[2018-01-12] MEDS: Cyanocobalamin (B-12) 1,000 MCG TABLET PO SCH (08:16)
[2018-01-12] MEDS: Aspirin 81 MG TAB.CHEW PO SCH (08:17)
[2018-01-12] MEDS: Magnesium Oxide 400 MG TABLET PO SCH ×3 (08:17→21:13)
[2018-01-12] MEDS: *HR* Digoxin 0.125 MG TABLET PO SCH (08:17)
[2018-01-12] MEDS: Multivit/Ca/Min/Fe/FA 1 TAB TABLET PO SCH (08:17)
[2018-01-12] MEDS: BuPROPion XL (24 HR) 150 MG TABLET PO SCH (08:17)
[2018-01-12] MEDS: Cefepime HCl 1,000 MG in Water for inj. (sterile) 20 ML 10 ML IVP SCH ×2 (08:18→16:43)
[2018-01-12] MEDS ORDERED: Diltiazem CD (24hr) 120 MG CAPSULE PO SCH (09:00)
[2018-01-12] MEDS ORDERED: Furosemide 20 MG TABLET PO SCH (09:00)
--- NOTE | 2018-01-12 10:24 | Cardiology Consult Note ---
<Vidhi Melendez - Last Filed: 01/12/18 11:10> Date of Encounter: 01/12/18 Time of Encounter: 09:30 Assessment and Plan (1) Atrial fibrillation/flutter Current Visit: No Status: Chronic Per cardiology: -Noted to be tachycardic at outpatient surgery visit. Asymptomatic. -Hx of atrial flutter ablation. -Average HR 109, a.fib. Now current SR, HR 70s. 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 -She continues to be on aspirin for stroke risk reduction in outpatient setting. Patient is aware of increased risk of CVA/emolic event while not on full anticoagulation. -TTE 10/2017 EF 60%, mild concentric LVH, moderate diastolic dysfunction, mildly dilated RV, mildly dilated LA, moderate pulmonary hypertension, no segmental wall motion abnormalities. -On dig 0.125mg daily and cardizem CD 120mg daily in outpatient setting. -Will increase cardizem to 180mg daily. -Anticipate cardiology sign off once evaluated by . Has outpatient cardiology follow up scheduled. (2) History of ventricular tachycardia Current Visit: No Status: Acute Per cardiology: -History of VT, has ICD. -Previously on amiodarone, stopped during previous hospital admission due to worsening respiratory status. -Follows with Dr.John Kearns, is supposed to have repeat PFT in outpatient setting. -Denies ICD shocks. -[facility] 05/2016 with angiographically normal coronaries. -Of note, Mg 1.6. Agree with magnesium replacement. Discussion w patient/family: The assessment and plan as outlined above was discussed with the patient who expressed understanding and agreement. All questions were answered. Thank you for involving us in the care of your patient. Please call with any questions. Discussed and reviewed with . History of Present Illness Consult date: 01/11/18 Requesting physician: Riky Carrillo Consult reason: a.fib rvr Chief complaint: high HR History of present illness: Ms. Hebert is a 67 year old female with a relevant past medical history of HTN, anemia, HLD, DM, IBS, ventricular tachycardia/v.fibrillaton s/p ICD, a.fib/flutter s/p a.flutter ablation not on anticoagulation due to signficant avelolar hemmorhage, COPD, CKD, recent small bowel obstruction who presented to outpatient surgery visit and was noted to be tachycardic and was recommended to go to ER. Patient denies increased shortness of breath. Denies palpitations/ fluttering. Reports has not be feeling well for months since having multiple abdominal surgeries. Past Med Surg Social Fam HX - Past Medical History Attestation: Yes The following information was validated with the patient. Source: patient, old records reviewed Medical history: atrial fibrillation, CHF, COPD, coronary artery disease, diabetes, hyperlipidemia, hypertension, myocardial infarction, other Additional medical history: IBS Psychiatric history: no psych history - Past Surgical History Surgical History: hysterectomy, orthopedic, other, pacemaker/AICD, other Additional surgical history: dawit knee replacement. achilles tendons sx - Social History Smoking Status: Never smoker Smokeless Tobacco Status: No Alcohol use: none Drug use: none - Family History Father Adopted: No Family Member Ethnicity: Non- Living Status: Age at : 89 Cause of : Alzheimers Hx Family Cardiac Disorders: No Hx Family Respiratory Disorders: Yes (COPD) Hx Family Cancer: No Hx Family GI Disorders: No Hx Family Genitourinary Disorders: No Hx Family Endocrine Disorder: No Hx Family Musculoskeletal Disorders: No Hx Family Neuromuscular Disorders: No Hx Family Neurologic Disorders: No Hx Family HEENT Disorders: No Hx Family Autoimmune Disorders: No Hx Family Reproductive Disorders: No Hx Family Psychosocial Disorders: No Hx Family Medical Disorders: No Mother Living Status: Hx Family Cardiac Disorders: Yes Hx Family Endocrine Disorder: Yes Medications and Allergies Aspirin 81 mg PO DAILY 06/05/16 [History] Multivitamin [Multivitamins] 1 cap PO DAILY 06/05/16 [History] Ferrous Sulfate 325 mg PO DAILY 04/28/17 [History] Baclofen [Lioresal] 10 mg PO TID PRN 08/19/17 [History] Cholecalciferol (D-3) [Vitamin D] 2,000 unit PO DAILY #30 tablet 08/25/17 [Rx] Albuterol Sulfate [Ventolin Hfa] 2 puff IH Q6H PRN 09/11/17 [History] Beclomethasone Diprop 80mcg [QVAR 80 mcg] 1 puff IH BID 09/11/17 [History] BuPROPion XL (24 HR) [Wellbutrin Xl] 150 mg PO DAILY 09/11/17 [History] Cyanocobalamin (Vitamin B-12) [Vitamin B12] 1,000 mcg PO DAILY 10/29/17 [History ] Meclizine [Antivert] 25 mg PO DAILY PRN 10/29/17 [History] Oxygen 2 l .ROUTE AD 10/29/17 [History] Albuterol Neb [Proventil Neb] 2.5 mg IH Q2H PRN inhsol 11/07/17 [Rx] Nitroglycerin 0.4 mg SL Q5MIN PRN tab.subl 11/07/17 [Rx] Lipase/Protease/Amylase [Micky Ramos 6,000 Units Capsule] 2 each PO ACHS #240 capsule. 11/17/17 [Rx] Diltiazem CD (24hr) [Cardizem CD] 120 mg PO DAILY 11/27/17 [History] Magnesium Oxide [Mag-Ox] 400 mg PO TID 11/27/17 [History] GuaiFENesin Liq [Robitussin Liq] 200 mg PO Q6HR PRN udc 12/11/17 [Rx] Lactobacillus [Culturelle] 1 each PO BID cap.sprink 12/11/17 [Rx] Benzocaine/Menthol [Chloraseptic Sore Throat Lozng] 1 lozenge MM Q2H PRN box [Rx] Digoxin [Lanoxin] 0.125 mg PO DAILY #1 tablet 12/29/17 [Rx] Furosemide [Lasix] 20 mg PO DAILY #1 tablet 12/29/17 [Rx] Levalbuterol Neb [Xopenex Neb] 0.63 mg IH [id number] vial.neb 12/29/17 [Rx] Metoclopramide [Reglan] 10 mg PO BIDAC tablet 12/29/17 [Rx] Omeprazole [PriLOSEC] 20 mg PO BIDAC #2 cap 12/29/17 [Rx] Oxycodone HCl [Oxaydo] 5 mg PO Q6H PRN 1 Days #5 tablet.orl 12/29/17 [Rx] Saliva Stimulant [Biotene Moisturizing Rinse] 1 spray PO Q2H PRN bottle [Rx] Sucralfate [Carafate] 1 gm GTUBE QIDAC udc 12/29/17 [Rx] 3 Allergy/AdvReac Type Severity Reaction Status Date / Time peanut Allergy Hives Verified 11/26/17 10:44 zinc Allergy Hives Verified 11/26/17 10:44 Sulfa (Sulfonamide AdvReac Mild constipatio Verified 11/26/17 10:44 Antibiotics) n All Systems Review: The remainder of the systems were reviewed and are negative - Cardiovascular Cardiovascular: as per HPI, rapid heart rate Physical Examination Vital Signs, Last 4 Hours Temp Pulse Resp BP Pulse Ox 01/12/18 06:44 97.5 F L 116 16 105/80 99 General: Conversant, No Apparent Distress HEENT: Atraumatic, Normocephaly, Mucus Membranes Moist Neck: No JVD, Normal carotid pulses Cardiac: Reg Rate and Rhythm, Normal S1 and S2, No Murmur Lungs: Other (Inspiratory wheezes noted. ) Neuro: Alert and responsive, No focal deficits noted Abdomen: Soft, Other (Tender) Skin: No rashes noted on visualized skin Musculoskeletal: No Chest Wall Tenderness Extremities: No Clubbing, No Cyanosis, No Edema, Normal Pulses Results 01/12/18 00:42 01/12/18 00:42 Lab Results Impressions Chest X-Ray 01/11/18 16:49 IMPRESSION: Stable bilateral pulmonary ground-glass opacity most consistent with pulmonary edema. Atypical infection is conceivable if the patient has fever or leukocytosis. D/ / Florentino Marks / Florentino Marks Interpreting Provider: Florentino Marks Chest CT 01/12/18 07:30 IMPRESSION: 1. Interval progression of multifocal interstitial and consolidative opacities throughout both lungs, with a right lower lobe predominance, which most likely reflects an acute superimposed interstitial process such as pulmonary edema, superimposed on chronic interstitial lung disease, possibly pulmonary alveolar proteinosis or chronic interstitial pulmonary fibrosis. 2. Stable mild mediastinal lymphadenopathy. 3. Trace bilateral pleural effusions. 4. Stable 4.2 cm fusiform aneurysm of the ascending aorta. 5. Findings suggestive of chronic pulmonary arterial hypertension. 6. Gastroesophageal reflux. 7. Mild upper abdominal ascites. D/ / 01/12/2018 09:04:26 Koffi Jett MD / [facility] Interpreting Provider: Koffi Jett MD Active Medications Acetaminophen (Tylenol) 650 mg PO Q6HR PRN PRN Reason: Mild Pain/Fever Stop: 07/14/18 00:21 Lipase/Protease/Amylase (Creon Dr 6,000 Units Capsule) 2 each PO ACHS TALA Stop: 07/14/18 08:01 Last Admin: 01/12/18 08:17 Dose: 2 each Aspirin (Aspirin) 81 mg PO DAILY TALA Stop: 07/14/18 09:01 Last Admin: 01/12/18 08:17 Dose: 81 mg Baclofen (Lioresal) 10 mg PO TID PRN PRN Reason: Muscle Spasm Stop: 07/14/18 00:29 Beclomethasone Dipropionate (Qvar 80 Mcg) 1 puff IH BIDR TALA PRN Reason: Protocol Stop: 07/14/18 10:01 Benzocaine/Menthol (Chloraseptic Sore Throat Lozng) 1 lozenge MM Q2H PRN PRN Reason: Sore Throat Stop: 07/14/18 00:29 Bupropion HCl (Wellbutrin Xl) 150 mg PO DAILY [facility] Stop: 07/14/18 09:01 Last Admin: 01/12/18 08:17 Dose: 150 mg Cyanocobalamin (Vitamin B12) 1,000 mcg PO DAILY TALA Stop: 07/14/18 09:01 Last Admin: 01/12/18 08:16 Dose: 1,000 mcg Digoxin (Lanoxin) 0.125 mg PO DAILY TALA Stop: 07/14/18 09:01 Last Admin: 01/12/18 08:17 Dose: 0.125 mg Diltiazem HCl (Cardizem Cd) 120 mg PO DAILY TALA Stop: 07/14/18 09:01 Last Admin: 01/12/18 08:17 Dose: 120 mg Ferrous Sulfate (Ferrous Sulfate) 325 mg PO DAILY TALA Stop: 07/14/18 09:01 Last Admin: 01/12/18 08:17 Dose: 325 mg Furosemide (Lasix) 20 mg PO DAILY TALA Stop: 07/14/18 09:01 Last Admin: 01/12/18 08:17 Dose: 20 mg Guaifenesin (Robitussin Liq) 200 mg PO Q6HR PRN PRN Reason: Cough Stop: 07/14/18 00:29 Diltiazem HCl 50 mg/ Sodium (Chloride) 50 mls @ 2.5 mls/hr IVC .Q20H TALA; 2.5 MG/HR PRN Reason: Protocol Stop: 07/13/18 17:16 Last Infusion: 01/12/18 03:15 Dose: 0 mg/hr, 0 mls/hr Cefepime HCl 1,000 mg/ Sterile (Water) 10 mls @ 300 mls/hr IVP Q8HR TALA Stop: 07/14/18 08:01 Last Admin: 01/12/18 08:18 Dose: Not Given Vancomycin HCl 750 mg/ Sodium (Chloride) 250 mls @ 250 mls/hr IVPB Q12H TALA Stop: 07/14/18 01:01 Last Infusion: 01/12/18 05:36 Dose: Infused Levofloxacin/Dextrose (Levaquin Premix 750mg/150 Ml) 750 mg in 150 mls @ 100 mls/hr IVPB DAILY TALA PRN Reason: Protocol Stop: 07/14/18 09:01 Lactobacillus Acidophilus/Rhamnosus (Culturelle) 1 each PO BID TALA Stop: 07/14/18 09:01 Last Admin: 01/12/18 08:16 Dose: 1 each Levalbuterol HCl (Xopenex) 0.63 mg IH [id number] PRN PRN Reason: Wheezing Stop: 07/14/18 04:01 Magnesium Oxide (Mag-Ox) 400 mg PO TID TALA PRN Reason: Protocol Stop: 07/14/18 09:01 Last Admin: 01/12/18 08:17 Dose: 400 mg Meclizine HCl (Antivert) 25 mg PO DAILY PRN PRN Reason: DIZZINESS Stop: 07/14/18 00:29 Metoclopramide HCl (Reglan) 10 mg PO BIDAC TALA Stop: 07/14/18 07:31 Last Admin: 01/12/18 08:17 Dose: 10 mg Multivitamins/Calcium (Thera M Plus) 1 tab PO DAILY TALA Stop: 07/14/18 09:01 Last Admin: 01/12/18 08:17 Dose: 1 tab Naloxone HCl (Narcan) 0.4 mg IVP Q2MIN PRN PRN Reason: SEE COMMENTS Stop: 07/14/18 00:21 Nitroglycerin (Nitroglycerin) 0.4 mg SL Q5MIN PRN PRN Reason: Chest Pain Stop: 07/14/18 00:29 Omeprazole (Prilosec) 20 mg PO BIDAC TALA PRN Reason: Protocol Stop: 07/14/18 07:31 Last Admin: 01/12/18 08:17 Dose: 20 mg Oxycodone HCl (Roxicodone) 5 mg PO Q6H PRN PRN Reason: SEVERE Pain Saliva Substitute (Biotene Moisturizing Rinse) 1 spray PO Q2H PRN PRN Reason: Dry mouth Stop: 07/14/18 00:29 Sucralfate (Carafate) 1 gm GTUBE QIDAC [facility] Stop: 07/14/18 07:31 Last Admin: 01/12/18 08:16 Dose: 1 gm Vitamin D (Vitamin D) 1,000 unit PO DAILY [facility] Stop: 07/14/18 09:01 Last Admin: 01/12/18 08:16 Dose: 1,000 unit Laboratory Tests 01/11/18 01/11/18 01/12/18 16:55 16:55 00:42 WBC 14.2 H D 12.8 H Hgb 10.9 L Potassium Creatinine Magnesium Troponin I 0.03 TSH 3.570 01/12/18 00:42 WBC Hgb Potassium 3.9 Creatinine 0.48 L Magnesium 1.6 Troponin I TSH - Imaging and Cardiology Chest Xray: report reviewed Echo: report reviewed Cardiac cath: report reviewed - EKG Interpretation EKG results cardiology: personally reviewed (ECG with a.fib RVR, HR 120.), other (Average HR previous 12 hours noted to be 109, a.fib. Now in SR, HR 70s.) Consult Discharge Plan - Plan Referrals: Sloane Murphy DO [Primary Care Provider] - <Margy Najera - Last Filed: 01/12/18 13:48> Date of Encounter: 01/12/18 - Attending Attestation I examined this patient and my medical decision-making was reviewed with the CRYSTAL ATTACHER. I agree with the documented findings, disposition and treatment plan as described. Ms. Hebert presents with AF RVR in setting of HCAP. Has known PAF. She converted to NSR overnight. We recommend increasing cardizem to 180mg . She will stay on Digoxin for now - presumably had difficult to control episodes. This can be tailored as an outpatient. Was taken off of coumadin secondary to history of alveolar hemorrhage. Continue aspirin. Of note, has a complex history of cardiac dysrhythmia previously received ICD for VT episodes. Amiodarone was stopped due to breathing difficulties. She follows with Dr. Allan Kearns and recently saw him 11/24/2017. Recommended outpatient Pulmonary evaluation to help guide management with Amio at that time. No concerning ventricular dysrhythmia on telemetry during her current hospitalization. Recommend outpatient follow up. Will sign off. Please call with questions. Assessment and Plan Discussion w patient/family: The assessment and plan as outlined above was discussed with the patient and/or family members who expressed understanding and agreement. All questions were answered. Thank you for involving us in the care of your patient. Please call with any questions. History of Present Illness History of present illness: Ms. Hebert is a 67 year old female All Systems Review: The remainder of the systems were reviewed and are negative Physical Examination Vital Signs, Last 4 Hours Temp Pulse Resp BP Pulse Ox 01/12/18 11:24 97.7 F 72 16 110/60 100 Results 01/12/18 00:42 01/12/18 00:42 Lab Results 01/12/18 01/12/18 01/12/18 00:42 00:42 00:42 WBC 12.8 H Hgb 10.9 L Hct 34.7 L Plt Count 465 H Sodium 136 Potassium 3.9 Chloride 102 Carbon Dioxide 24 BUN 23 Creatinine 0.48 L Glucose 65 L Calcium 8.2 L Magnesium 1.6 B-Natriuretic Peptide 118 H
[2018-01-12] MEDS: Beclomethasone 80mcg MDI IH SCH ×2 (10:39→21:42)
--- NOTE | 2018-01-12 11:37 | Internal Med Progress Note ---
Date of Encounter: 01/12/18 Time of Encounter: 11:34 - Assessment and plan (1) Atrial fibrillation with RVR Current Visit: Yes Status: Acute Assessment and plan: Patient has history of A. fib. On by mouth Cardizem for rate control. On aspirin for CVA prevention. Patient is not on any anticoagulation because of history of GI bleed. Patient has tachycardia, consider A. fib RVR. - Continue Cardizem drip. Continuous cardiac monitoring. May switch to by mouth Cardizem if heart rate is well controlled. - Magnesium within normal limit. Potassium within normal limit. Patient has normal TSH in ER. - Cardio recommendations pending.Medication adjustment per Cardiology (2) LUIS on CPAP Current Visit: No Status: Chronic Assessment and plan: Continue CPAP during night. (3) HCAP (healthcare-associated pneumonia) Current Visit: Yes Status: Suspected Assessment and plan: Patient has chronic a cough. She has recent hospitalization for small bowel obstruction. Patient has leukocytosis and chest x-ray shows possible pneumonia. CT chest: - We will treat patient with Vanco, cefepime, and Levaquin - Follow up blood culture (4) Small bowel obstruction Current Visit: No Status: Acute Assessment and plan: S/P surgery. Has abdominal wound on wound VAC. - Patient has a poor appetite. - Consult dietitian for nutrition supplement. - Consul Wound Care for wound. (5) COPD (chronic obstructive pulmonary disease) Current Visit: Yes Status: Acute Assessment and plan: No acute issues. Continue home medications. Qualifiers: COPD type: emphysema Emphysema type: unspecified Qualified Code(s): J43.9 - Emphysema, unspecified (6) DVT prophylaxis Current Visit: No Status: Acute Assessment and plan: Has history of severe UGIB and also alveolar hemorrhage so will avoid heparin products - SCDs (7) (HFpEF) heart failure with preserved ejection fraction Current Visit: No Status: Chronic (8) Diabetes mellitus, type 2 Current Visit: No Status: Chronic Assessment and plan: Currently hypoglycemic, will hold off insulin and continue cardiac diet. If becomes hyperglycemic, then start a diabetic diet and ISS. 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 use: without dedicated intermodal truck driver use Diabetes mellitus complication status: with hyperglycemia Qualified Code(s): E11.65 - Type 2 diabetes mellitus with hyperglycemia (9) HTN (hypertension) Current Visit: No Status: Chronic Assessment and plan: On cardizem, toprol Qualifiers: Hypertension type: essential hypertension Qualified Code(s): I10 - Essential (primary) hypertension (10) Sacral decubitus ulcer Current Visit: No Status: Chronic Assessment and plan: Present on admission Qualifiers: Pressure ulcer stage: stage 2 Qualified Code(s): L89.152 - Pressure ulcer of sacral region, stage 2 - Time Spent With Patient Total time spent is greater than 50% in coordination of care (as documented) at patient's floor/unit and/or counseling patient: - Constitutional Vitals: Temp Pulse Resp BP Pulse Ox 97.7 F 72 16 110/60 100 01/12/18 11:24 01/12/18 11:24 01/12/18 11:24 01/12/18 11:24 01/12/18 11:24 General appearance: Present: A&O X 3, no acute distress, answers questions appropriately Exam: - Head Head exam: Present: atraumatic, normocephalic - Eye Eye exam: Present: PERRL, conjuntiva pink, sclera anicteric Pupils: Present: PERRL - Neck Neck exam general surgery: Present: supple, trachea midline. Absent: lymphadenopathy - Respiratory Respiratory exam: Present: CTAB. Absent: accessory muscle use, rales, rhonchi, wheezes Additional comments: poor inspiratory effort - Cardiovascular Cardiovascular exam: Present: irregular rhythm, +S1, +S2, tachycardia. Absent: diastolic murmur, gallop, rubs, systolic murmur - GI/Abdominal GI/Abdominal exam: Present: normal bowel sounds, soft, no peritoneal signs. Absent: distended, tenderness - Extremities Exam Extremities exam: Present: warm, radial pulses palpable and symmetrical. Absent : calf tenderness, cyanotic, pedal edema - Neurological Exam Neurological exam: Present: CN II-XII intact, oriented X3, no focal deficits. Absent: pronater drift, facial droop, speech deficit - Skin Skin exam: Present: dry, intact Internal Medicine: Result - Labs CBC & Chem 7: 01/12/18 00:42 01/12/18 00:42 Labs: Short CBC 01/12/18 Range/Units 00:42 WBC 12.8 H (4.3-11.1) K/mcL Hgb 10.9 L (11.5-15.4) g/dL Hct 34.7 L (35.3-44.9) % Plt Count 465 H (140-400) K/mcL Neutrophils # 9.6 H (1.6-8.9) K/mcL BMP 01/12/18 00:42 Sodium 136 Potassium 3.9 Chloride 102 Carbon Dioxide 24 BUN 23 Creatinine 0.48 L Glucose 65 L Calcium 8.2 L - ABG Interpretation ABG results: PT/INR, D-dimer PT 13.4 Seconds (9.4-12.1) H 01/11/18 16:55 - Impressions Impressions Chest CT 01/12/18 07:30 IMPRESSION: 1. Interval progression of multifocal interstitial and consolidative opacities throughout both lungs, with a right lower lobe predominance, which most likely reflects an acute superimposed interstitial process such as pulmonary edema, superimposed on chronic interstitial lung disease, possibly pulmonary alveolar proteinosis or chronic interstitial pulmonary fibrosis. 2. Stable mild mediastinal lymphadenopathy. 3. Trace bilateral pleural effusions. 4. Stable 4.2 cm fusiform aneurysm of the ascending aorta. 5. Findings suggestive of chronic pulmonary arterial hypertension. 6. Gastroesophageal reflux. 7. Mild upper abdominal ascites. D/ / 01/12/2018 09:04:26 Koffi Jett MD / [facility] Interpreting Provider: Koffi Jett MD Consult Discharge Plan - Plan Referrals: Sloane Murphy DO [Primary Care Provider] -
[2018-01-12] MEDS: Levofloxacin 750 MG/150 ML 750 MG/150 ML BAG IVPB SCH (11:47)
[2018-01-12] MEDS ORDERED: Furosemide 40 MG/4 ML VIAL IVP SCH (12:00)
--- NOTE | 2018-01-12 12:30 | Electrocardiograph Report ---
[place] [id number] Test Date: 2018-01-11 Pat Name: Aisha Hebert Department: 104 Room: [id number] Gender: F Scanning Clerk: PRUDENCE : 1950 Requested By: Riky Carrillo Order Number: [id number] Reading MD: Nav Denney Measurements Intervals [place] Rate: 120 P: IN: 0 QRS: 18 QRSD: 91 T: -48 QT: 293 QTc: 364 Interpretive Statements SINUS TACHYCARDIA POOR R WAVE PROGRESSION Electronically Signed On 01-12-2018 12:28:56 EDT by Nav Denney
[2018-01-12] MEDS ORDERED: Furosemide 40 MG/4 ML VIAL IVP ONE (15:18)
[2018-01-13] MEDS: Cefepime HCl 1,000 MG in Water for inj. (sterile) 20 ML 10 ML IVP SCH ×2 (01:12→09:30)
[2018-01-13 06:43] LABS: Basophils # 0.1 K/mcL (0.0-0.2); Basophils % 0.9 %; Eosinophils # 0.2 K/mcL (0.0-0.6); Eosinophils % 2.9 %; Hematocrit 28.3 % (35.3-44.9); Immature Granulocytes % 0.5 % (0-4); Lymphocytes # 0.9 K/mcL (0.6-4.6); Mean Corpuscular HGB Conc 30.7 g/dL (31.6-35.5); Mean Corpuscular Hemoglobin 27.9 pg (28.0-33.3); Mean Corpuscular Volume 90.7 fL (83.0-100.0); Mean Platelet Volume 10.1 fL (9.4-12.4); Monocytes # 0.8 K/mcL (0.0-1.3); Monocytes % 14.2 %; Platelet Count 391 K/mcL (140-400); Red Blood Count 3.12 M/mcL (3.82-4.97); Segmented Neutrophils % 65.5 %
[2018-01-13 06:44] LABS: Hemoglobin 8.7 g/dL (11.5-15.4); Neutrophils # 3.9 K/mcL (1.6-8.9)
[2018-01-13 07:02] LABS: BUN/Creatinine Ratio 41 (6-26); Blood Urea Nitrogen 25 mg/dL (8-23); Calcium 7.9 mg/dL (8.6-10.3); Carbon Dioxide 29 mEq/L (23-29); Chloride 102 mEq/L (98-107); Glucose 83 mg/dL (70-105); Osmolality,Calculated 284 (280-300); Potassium 4.1 mEq/L (3.5-5.1); Sodium 135 mEq/L (136-145); eGFR For African Americans > 60 (> 60); eGFR For Non-African Americans > 60 (> 60)
[2018-01-13] MEDS: Beclomethasone 80mcg MDI IH SCH ×2 (08:06→20:04)
[2018-01-13] MEDS: Cholecalciferol (D-3) 1,000 UNIT TABLET PO SCH (09:30)
[2018-01-13] MEDS: BuPROPion XL (24 HR) 150 MG TABLET PO SCH (09:30)
[2018-01-13] MEDS: Cyanocobalamin (B-12) 1,000 MCG TABLET PO SCH (09:30)
[2018-01-13] MEDS: Multivit/Ca/Min/Fe/FA 1 TAB TABLET PO SCH (09:30)
[2018-01-13] MEDS: Lactobacillus 1 EACH CAP.SPRINK PO SCH ×2 (09:30→22:29)
[2018-01-13] MEDS: Magnesium Oxide 400 MG TABLET PO SCH ×3 (09:30→22:29)
[2018-01-13] MEDS: Diltiazem CD (24hr) 180 MG CAPSULE PO SCH (09:30)
[2018-01-13] MEDS: *HR* Digoxin 0.125 MG TABLET PO SCH (09:30)
[2018-01-13] MEDS: Aspirin 81 MG TAB.CHEW PO SCH (10:12)
[2018-01-13] MEDS: Levofloxacin 750 MG/150 ML 750 MG/150 ML BAG IVPB SCH (10:15)
--- NOTE | 2018-01-13 13:05 | Internal Med Progress Note ---
Date of Encounter: 01/13/18 Time of Encounter: 13:00 - Assessment and plan (1) Atrial fibrillation with RVR Current Visit: Yes Status: Acute Assessment and plan: Patient has history of A. fib. On by mouth Cardizem for rate control. On aspirin for CVA prevention. Patient is not on any anticoagulation because of history of GI bleed. Patient has tachycardia, consider A. fib RVR. - Continue Cardizem drip. Continuous cardiac monitoring. Switched to Cardizem PO - Magnesium within normal limit. Potassium within normal limit. Patient has normal TSH in ER. - Cardio recommendations made, currently HR is within normal limits, continue current medications (2) Chronic respiratory failure Current Visit: No Status: Chronic Assessment and plan: Patient is on 2 L O2 which she is on at home She has possibly a recurring pneumonia currently on broad spectrum antibiotics Currently appears to have pulmonary edema requiring diuresis. Consult Pulmonology for possible recurring pneumonia. Patient states she sees Pulmonology group for LUIS. Qualifiers: Respiratory failure complication: hypoxia and hypercapnia Qualified Code(s) : J96.11 - Chronic respiratory failure with hypoxia; J96.12 - Chronic respiratory failure with hypercapnia (3) (HFpEF) heart failure with preserved ejection fraction Current Visit: No Status: Chronic Assessment and plan: Continue diuresis, CT chest shows possibly pulm edema vs worsening interstitial lung disease. (4) HCAP (healthcare-associated pneumonia) Current Visit: Yes Status: Suspected Assessment and plan: Unsure if this is pneumonia or other process seen on CT exam. Patient has chronic a cough. She has recent hospitalization for small bowel obstruction. Patient has leukocytosis and chest x-ray shows possible pneumonia. CT chest: progressive multifocal interstitial and consolidative opacities She took Cefepime and Levaquin on recent admissions so will DC those today Follow-up procalcitonin DC Cefepime and Levaquin MRSA swab negative and so vancomycin DC'd Will de escalate therapy to Augmentin and monitor Consult Pulmonology for recommendations. She is known to pulmonology group in the past (5) LUIS on CPAP Current Visit: No Status: Chronic Assessment and plan: Continue CPAP during night. (6) Small bowel obstruction Current Visit: No Status: Acute Assessment and plan: S/P surgery. Has abdominal wound on wound VAC. - Patient has a poor appetite. - Consult dietitian for nutrition supplement. - Consul Wound Care for wound. (7) COPD (chronic obstructive pulmonary disease) Current Visit: Yes Status: Acute Assessment and plan: No acute issues. Continue home medications. Qualifiers: COPD type: emphysema Emphysema type: unspecified Qualified Code(s): J43.9 - Emphysema, unspecified (8) Diabetes mellitus, type 2 Current Visit: No Status: Chronic Assessment and plan: Currently hypoglycemic, will hold off insulin and continue cardiac diet. If becomes hyperglycemic, then start a diabetic diet and ISS. Qualifiers: Diabetes mellitus manager terminal insulin use: without usp use Diabetes mellitus complication status: with hyperglycemia Qualified Code(s): E11.65 - Type 2 diabetes mellitus with hyperglycemia (9) HTN (hypertension) Current Visit: No Status: Chronic Assessment and plan: On cardizem, toprol Qualifiers: Hypertension type: essential hypertension Qualified Code(s): I10 - Essential (primary) hypertension (10) Sacral decubitus ulcer Current Visit: No Status: Chronic Assessment and plan: Present on admission Qualifiers: Pressure ulcer stage: stage 2 Qualified Code(s): L89.152 - Pressure ulcer of sacral region, stage 2 (11) DVT prophylaxis Current Visit: No Status: Acute Assessment and plan: Has history of severe UGIB and also alveolar hemorrhage so will avoid heparin products - SCDs - Time Spent With Patient Total time spent is greater than 50% in coordination of care (as documented) at patient's floor/unit and/or counseling patient: - Subjective Interval history: No acute events, denies cp, palitations, nv - Constitutional Vitals: Temp Pulse Resp BP Pulse Ox 98.0 F 86 16 112/69 100 01/13/18 11:09 01/13/18 11:09 01/13/18 11:09 01/13/18 11:09 01/13/18 11:09 General appearance: Present: A&O X 3, no acute distress, answers questions appropriately Exam: - Head Head exam: Present: atraumatic, normocephalic - Eye Eye exam: Present: PERRL, conjuntiva pink, sclera anicteric Pupils: Present: PERRL - Neck Neck exam general surgery: Present: supple, trachea midline. Absent: lymphadenopathy - Respiratory Respiratory exam: Present: CTAB. Absent: accessory muscle use, rales, rhonchi, wheezes Additional comments: poor inspiratory effort - Cardiovascular Cardiovascular exam: Present: irregular rhythm, +S1, +S2, tachycardia. Absent: diastolic murmur, gallop, rubs, systolic murmur - GI/Abdominal GI/Abdominal exam: Present: normal bowel sounds, soft, no peritoneal signs. Absent: distended, tenderness - Extremities Exam Extremities exam: Present: warm, radial pulses palpable and symmetrical. Absent : calf tenderness, cyanotic, pedal edema - Neurological Exam Neurological exam: Present: CN II-XII intact, oriented X3, no focal deficits. Absent: pronater drift, facial droop, speech deficit - Skin Skin exam: Present: dry, intact Internal Medicine: Result - Labs CBC & Chem 7: 01/13/18 04:00 01/13/18 04:00 Labs: Short CBC 01/13/18 Range/Units 04:00 WBC 5.9 D (4.3-11.1) K/mcL Hgb 8.7 L D (11.5-15.4) g/dL Hct 28.3 L (35.3-44.9) % Plt Count 391 (140-400) K/mcL Neutrophils # 3.9 (1.6-8.9) K/mcL BMP 01/13/18 04:00 Sodium 135 L Potassium 4.1 Chloride 102 Carbon Dioxide 29 BUN 25 H Creatinine 0.61 Glucose 83 Calcium 7.9 L - ABG Interpretation ABG results: PT/INR, D-dimer PT 13.4 Seconds (9.4-12.1) H 01/11/18 16:55 - VTE Documentation of Mechanical Device: Intermittent pneumatic compression device Consult Discharge Plan - Plan Referrals: Sloane Murphy DO [Primary Care Provider] - 01/19/18 10:45 am
--- NOTE | 2018-01-13 16:35 | Pulmonology Consult Note ---
Date of Encounter: 01/14/18 Time of Encounter: 15:30 Assessment and Plan (1) ILD (interstitial lung disease) Current Visit: Yes Status: Chronic CT chest was reviewed with pulmonary physicians and there is evidence of interstitial lung disease and suspicion is nonspecific interstitial pneumonia, however patient will need open lung biopsy to have official diagnosis for this patient. At this time patient denies any changes clinically from her baseline and she needs only 2 L oxygen which is what she has been using at home. It is important to mention that alveolar hemorrhage was in the differential diagnosis and if anticoagulation needs to be tried again by cardiology team, it is acceptable from a pulmonary standpoint since previously it was thought cardiogenic pulmonary edema was the reason for hemoptysis. I have explained to the patient she needs to follow-up as outpatient and no intervention needed currently. Thank you for consultation and please call for any questions. Patient needs to follow up in the clinic after she is discharged from the hospital. (2) Pulmonary edema Current Visit: No Status: Suspected Recommend diuresis as much as possible Qualifiers: Chronicity: acute Qualified Code(s): J81.0 - Acute pulmonary edema (3) Chronic respiratory failure Current Visit: No Status: Chronic Patient is on long-term oxygen therapy and to keep SPO2 around 90% Qualifiers: Respiratory failure complication: hypoxia and hypercapnia Qualified Code(s) : J96.11 - Chronic respiratory failure with hypoxia; J96.12 - Chronic respiratory failure with hypercapnia History of Present Illness Consult date: 01/13/18 Requesting physician: Jacob Garcia Reason for consult: abnormal CXR/CT Chief complaint: Tachycardia History of present illness: This is a very pleasant 67-year-old female who is known to our service from previous hospitalization and patient with interstitial lung disease with significant coronary artery disease presented to the hospital with tachycardia. Patient went to see surgery and she was found to have tachycardia and she was advised to come to emergency room for evaluation and management. Patient denies any significant changes in her shortness of breath and no significant wheezing or sputum production and she is on long-term oxygen therapy. She denies any fever or chills. No chest pain. Pulmonary was consulted for more recommendations. Past Med Surg Social Fam HX - Past Medical History Medical history: atrial fibrillation, CHF, COPD, coronary artery disease, diabetes, hyperlipidemia, hypertension, myocardial infarction, other Additional medical history: IBS Psychiatric history: no psych history - Past Surgical History Surgical History: hysterectomy, orthopedic, other, pacemaker/AICD, other Additional surgical history: dawit knee replacement. achilles tendons sx - Social History Smoking Status: Never smoker Smokeless Tobacco Status: No Alcohol use: none Drug use: none - Family History Father Adopted: No Family Member Ethnicity: Non- Living Status: Age at : 89 Cause of : Alzheimers Hx Family Cardiac Disorders: No Hx Family Respiratory Disorders: Yes (COPD) Hx Family Cancer: No Hx Family GI Disorders: No Hx Family Genitourinary Disorders: No Hx Family Endocrine Disorder: No Hx Family Musculoskeletal Disorders: No Hx Family Neuromuscular Disorders: No Hx Family Neurologic Disorders: No Hx Family HEENT Disorders: No Hx Family Autoimmune Disorders: No Hx Family Reproductive Disorders: No Hx Family Psychosocial Disorders: No Hx Family Medical Disorders: No Mother Living Status: Hx Family Cardiac Disorders: Yes Hx Family Endocrine Disorder: Yes Medications and Allergies Aspirin 81 mg PO DAILY 06/05/16 [History] Multivitamin [Multivitamins] 1 cap PO DAILY 06/05/16 [History] Ferrous Sulfate 325 mg PO DAILY 04/28/17 [History] Baclofen [Lioresal] 10 mg PO TID PRN 08/19/17 [History] Cholecalciferol (D-3) [Vitamin D] 2,000 unit PO DAILY #30 tablet 08/25/17 [Rx] Albuterol Sulfate [Ventolin Hfa] 2 puff IH Q6H PRN 09/11/17 [History] Beclomethasone Diprop 80mcg [QVAR 80 mcg] 1 puff IH BID 09/11/17 [History] BuPROPion XL (24 HR) [Wellbutrin Xl] 150 mg PO DAILY 09/11/17 [History] Cyanocobalamin (Vitamin B-12) [Vitamin B12] 1,000 mcg PO DAILY 10/29/17 [History ] Meclizine [Antivert] 25 mg PO DAILY PRN 10/29/17 [History] Oxygen 2 l .ROUTE AD 10/29/17 [History] Albuterol Neb [Proventil Neb] 2.5 mg IH Q2H PRN inhsol 11/07/17 [Rx] Nitroglycerin 0.4 mg SL Q5MIN PRN tab.subl 11/07/17 [Rx] Lipase/Protease/Amylase [Creon Dr 6,000 Units Capsule] 2 each PO ACHS #240 capsule. 11/17/17 [Rx] Diltiazem CD (24hr) [Cardizem CD] 120 mg PO DAILY 11/27/17 [History] Magnesium Oxide [Mag-Ox] 400 mg PO TID 11/27/17 [History] GuaiFENesin Liq [Robitussin Liq] 200 mg PO Q6HR PRN udc 12/11/17 [Rx] Lactobacillus [Culturelle] 1 each PO BID cap.sprink 12/11/17 [Rx] Benzocaine/Menthol [Chloraseptic Sore Throat Lozng] 1 lozenge MM Q2H PRN box [Rx] Digoxin [Lanoxin] 0.125 mg PO DAILY #1 tablet 12/29/17 [Rx] Furosemide [Lasix] 20 mg PO DAILY #1 tablet 12/29/17 [Rx] Levalbuterol Neb [Xopenex Neb] 0.63 mg IH [id number] vial.neb 12/29/17 [Rx] Metoclopramide [Reglan] 10 mg PO BIDAC tablet 12/29/17 [Rx] Omeprazole [PriLOSEC] 20 mg PO BIDAC #2 cap 12/29/17 [Rx] Oxycodone HCl [Oxaydo] 5 mg PO Q6H PRN 1 Days #5 tablet.orl 12/29/17 [Rx] Saliva Stimulant [Biotene Moisturizing Rinse] 1 spray PO Q2H PRN bottle [Rx] Sucralfate [Carafate] 1 gm GTUBE QIDAC [facility] [place] 12/29/17 [Rx] 3 Allergy/AdvReac Type Severity Reaction Status Date / Time peanut Allergy Hives Verified 11/26/17 10:44 zinc Allergy Hives Verified 11/26/17 10:44 Sulfa (Sulfonamide AdvReac Mild constipatio Verified 11/26/17 10:44 Antibiotics) n All Systems: The remainder of the systems were reviewed and are negative Physical Examination Vital Signs: Vital Signs, Last 4 Hours Temp Pulse Resp BP Pulse Ox 01/13/18 15:25 98.4 F 85 16 99/55 98 General appearance: no acute distress ENT: oropharynx moist Neck: supple Effort: normal Inspection: hyperextended Auscultation: bilateral: other (Dry crackles) Percussion: bilateral: not dull Cardiovascular: irregular rhythm Gastrointestinal: normoactive bowel sounds Extremities: no cyanosis, no edema normal mental status, non-focal exam mood appropriate Results - Laboratory Findings CBC and BMP: 01/14/18 04:00 01/14/18 04:00 PT/INR, D-dimer PT 13.4 Seconds (9.4-12.1) H 01/11/18 16:55 Abnormal lab findings: Abnormal lab results RBC 3.12 M/mcL (3.82-4.97) L 01/13/18 04:00 Hgb 8.7 g/dL (11.5-15.4) L D 01/13/18 04:00 Hct 28.3 % (35.3-44.9) L 01/13/18 04:00 MCH 27.9 pg (28.0-33.3) L 01/13/18 04:00 MCHC 30.7 g/dL (31.6-35.5) L 01/13/18 04:00 RDW 17.0 % (11.5-14.5) H 01/13/18 04:00 PT 13.4 Seconds (9.4-12.1) H 01/11/18 16:55 Sodium 135 mEq/L (136-145) L 01/13/18 04:00 BUN 25 mg/dL (8-23) H 01/13/18 04:00 BUN/Creatinine Ratio 41 (6-26) H 01/13/18 04:00 Calcium 7.9 mg/dL (8.6-10.3) L 01/13/18 04:00 Phosphorus 2.6 mg/dL (2.7-4.5) L 01/12/18 00:42 B-Natriuretic Peptide 118 pg/mL (Less than 100) H 01/12/18 00:42 - Microbiology Findings Microbiology Findings: Microbiology, Last 48 Hours 01/12/18 00:42 Blood Culture - Preliminary Peripheral Venipuncture Culture is incubating and being continuously monitored for growth. Final report to follow. 01/12/18 00:42 Blood Culture - Preliminary Peripheral Venipuncture Culture is incubating and being continuously monitored for growth. Final report to follow. - Diagnostic Findings CT scan - chest: report reviewed, image reviewed - Clinical Findings Intake & Output: Intake & Output 01/13/18 01/13/18 01/13/18 07:59 15:59 23:59 Intake Total 360 / 360 Balance 360 / 360 Weight 55.5 kg Consult Discharge Plan - Plan Referrals: Sloane Murphy DO [Primary Care Provider] - 01/19/18 10:45 am
[2018-01-13 16:51] LABS: Hematocrit 28.6 % (35.3-44.9); Hemoglobin 9.1 g/dL (11.5-15.4)
[2018-01-13] MEDS ORDERED: Furosemide 40 MG/4 ML VIAL IVP ONE (17:02)
[2018-01-13 20:36] LABS: VBG Ionized Calcium 1.13 mmol/L (1.15-1.35)
[2018-01-14 04:59] LABS: Basophils % 0.7 %; Eosinophils # 0.2 K/mcL (0.0-0.6); Eosinophils % 3.9 %; Hematocrit 29.3 % (35.3-44.9); Hemoglobin 9.3 g/dL (11.5-15.4); Immature Granulocytes % 0.4 % (0-4); Lymphocytes # 1.4 K/mcL (0.6-4.6); Lymphocytes % 24.9 %; Mean Corpuscular HGB Conc 31.7 g/dL (31.6-35.5); Mean Corpuscular Hemoglobin 28.6 pg (28.0-33.3); Mean Corpuscular Volume 90.2 fL (83.0-100.0); Mean Platelet Volume 10.4 fL (9.4-12.4); Monocytes # 0.8 K/mcL (0.0-1.3); Monocytes % 13.4 %; Neutrophils # 3.2 K/mcL (1.6-8.9); Platelet Count 291 K/mcL (140-400); Red Blood Count 3.25 M/mcL (3.82-4.97); Red Cell Distribution Width 16.9 % (11.5-14.5); Segmented Neutrophils % 56.7 %
[2018-01-14 05:19] LABS: BUN/Creatinine Ratio 40 (6-26); Blood Urea Nitrogen 25 mg/dL (8-23); Calcium 8.2 mg/dL (8.6-10.3); Carbon Dioxide 30 mEq/L (23-29); Chloride 102 mEq/L (98-107); Glucose 91 mg/dL (70-105); Osmolality,Calculated 288 (280-300); Potassium 4.1 mEq/L (3.5-5.1); Sodium 137 mEq/L (136-145); eGFR For African Americans > 60 (> 60); eGFR For Non-African Americans > 60 (> 60)
[2018-01-14] MEDS: Beclomethasone 80mcg MDI IH SCH (07:47)
[2018-01-14] MEDS ORDERED: Furosemide 40 MG/4 ML VIAL IVP ONE (09:00)
[2018-01-14] MEDS: Diltiazem CD (24hr) 180 MG CAPSULE PO SCH (09:28)
[2018-01-14] MEDS: Multivit/Ca/Min/Fe/FA 1 TAB TABLET PO SCH (09:29)
[2018-01-14] MEDS: *HR* Digoxin 0.125 MG TABLET PO SCH (09:29)
[2018-01-14] MEDS: Lactobacillus 1 EACH CAP.SPRINK PO SCH (09:29)
[2018-01-14] MEDS: Cyanocobalamin (B-12) 1,000 MCG TABLET PO SCH (09:29)
[2018-01-14] MEDS: BuPROPion XL (24 HR) 150 MG TABLET PO SCH (09:29)
[2018-01-14] MEDS: Magnesium Oxide 400 MG TABLET PO SCH ×2 (09:29→15:33)
[2018-01-14] MEDS: Cholecalciferol (D-3) 1,000 UNIT TABLET PO SCH (09:29)
[2018-01-14] MEDS: Aspirin 81 MG TAB.CHEW PO SCH (09:29)
[2018-01-14 16:18] VITALS: BP 103/64
--- NOTE | 2018-01-14 16:23 | Physician Discharge Referral ---
Home Health/Hosp Referral Info Transfer to: Home Health Provider in Charge Post Discharge: PCP - Diagnosis (1) Atrial fibrillation with RVR Priority: Primary Status: Acute (2) (HFpEF) heart failure with preserved ejection fraction Priority: Secondary Status: Chronic (3) Chronic respiratory failure Priority: Secondary Status: Chronic (4) COPD (chronic obstructive pulmonary disease) Priority: Secondary Status: Acute (5) Diabetes mellitus, type 2 Priority: Secondary Status: Chronic (6) HTN (hypertension) Priority: Secondary Status: Chronic (7) LUIS on CPAP Priority: Secondary Status: Chronic (8) Sacral decubitus ulcer Priority: Secondary Status: Chronic (9) Small bowel obstruction Priority: Secondary Status: Acute - Respiratory Orders Oxygen / L per min (2), Other (CPAP at night) Smoking Cessation: Smoking cessation has been advised. For more information, call the [facility] [facility] Tobacco Quit Line at 8-136-ZTKF-NOW. - Dressing/Wound Care Site: abdomen Type of Dressing/Treatments w/Frequency: Change dressing with non-adhesive dressing daily - Diet/Nutrition Diet/Nutrition Orders: Cardiac - Activity Activity Orders: Ambulate - Services Needed Following services are medically necessary services: Nursing, Home Health Aide, Physical Therapy, Occupational Therapy - Transfer Medications Home Medications: Aspirin 81 mg PO DAILY 06/05/16 [History] Multivitamin [Multivitamins] 1 cap PO DAILY 06/05/16 [History] Ferrous Sulfate 325 mg PO DAILY 04/28/17 [History] Baclofen [Lioresal] 10 mg PO TID PRN 08/19/17 [History] Cholecalciferol (D-3) [Vitamin D] 2,000 unit PO DAILY #30 tablet 08/25/17 [Rx] Albuterol Sulfate [Ventolin Hfa] 2 puff IH Q6H PRN 09/11/17 [History] Beclomethasone Diprop 80mcg [QVAR 80 mcg] 1 puff IH BID 09/11/17 [History] BuPROPion XL (24 HR) [Wellbutrin Xl] 150 mg PO DAILY 09/11/17 [History] Cyanocobalamin (Vitamin B-12) [Vitamin B12] 1,000 mcg PO DAILY 10/29/17 [History ] Meclizine [Antivert] 25 mg PO DAILY PRN 10/29/17 [History] Oxygen 2 l .ROUTE AD 10/29/17 [History] Albuterol Neb [Proventil Neb] 2.5 mg IH Q2H PRN inhsol 11/07/17 [Rx] Nitroglycerin 0.4 mg SL Q5MIN PRN tab.subl 11/07/17 [Rx] Lipase/Protease/Amylase [Micky Ramos 6,000 Units Capsule] 2 each PO ACHS #240 capsule. 11/17/17 [Rx] Diltiazem CD (24hr) [Cardizem CD] 120 mg PO DAILY 11/27/17 [History] Magnesium Oxide [Mag-Ox] 400 mg PO TID 11/27/17 [History] GuaiFENesin Liq [Robitussin Liq] 200 mg PO Q6HR PRN udc 12/11/17 [Rx] Lactobacillus [Culturelle] 1 each PO BID cap.sprink 12/11/17 [Rx] Benzocaine/Menthol [Chloraseptic Sore Throat Lozng] 1 lozenge MM Q2H PRN box [Rx] Digoxin [Lanoxin] 0.125 mg PO DAILY #1 tablet 12/29/17 [Rx] Furosemide [Lasix] 20 mg PO DAILY #1 tablet 12/29/17 [Rx] Levalbuterol Neb [Xopenex Neb] 0.63 mg IH [id number] vial.neb 12/29/17 [Rx] Metoclopramide [Reglan] 10 mg PO BIDAC tablet 12/29/17 [Rx] Omeprazole [PriLOSEC] 20 mg PO BIDAC #2 cap 12/29/17 [Rx] Oxycodone HCl [Oxaydo] 5 mg PO Q6H PRN 1 Days #5 tablet.orl 12/29/17 [Rx] Saliva Stimulant [Biotene Moisturizing Rinse] 1 spray PO Q2H PRN bottle [Rx] Sucralfate [Carafate] 1 gm GTUBE QIDAC udc 12/29/17 [Rx] Allergies/Adverse Reactions: 3 Allergy/AdvReac Type Severity Reaction Status Date / Time peanut Allergy Hives Verified 11/26/17 10:44 zinc Allergy Hives Verified 11/26/17 10:44 Sulfa (Sulfonamide AdvReac Mild constipatio Verified 11/26/17 10:44 Antibiotics) n Certification: Further, I certify that my clinical findings support that this patient is homebound (i.e. absences from home require considerable and taxing effort and are for medical reasons or latter-day services or infrequently or short duration when for other reasons) because: Homebound Reason: Patient requires assistance of a person or device to safely leave home, Post-surgery restriction and or conditions limit ability to leave home, Leaving home requires considerable and taxing effort due to condition, Severity of cardiac or pulmonary status limits activity tolerance Attestation: My signature below is to certify that this patient is under my care and that I, or nurse practitioner, or a physician's assistant community manager working with me, has a face-to -face encounter with this patient.
--- NOTE | 2018-01-14 16:28 | Discharge Summary ---
<Brynn Harrington - Last Filed: 01/14/18 16:26> - NOTES TO OUTPATIENT PROVIDER Notes to Outpatient Provider: Patient discharge home with home health, will need daily dressing changes on abdominal wound until seen by surgery. Diltiazem was increased to 180mg daily. Patient discharged on increased daily dose of lasix to 40mg daily until PCP follow up. Lung exam was wet on day of discharge with rhonchi and rales without peripheral edema. Orders not resulted at time of discharge: Pending orders 01/12/18 00:42 Culture,Blood [BC] Stat 01/15/18 04:00 BMP [Basic Metabolic Panel] AM 0400 Complete Blood Count [HEME] AM 0400 01/16/18 04:00 BMP [Basic Metabolic Panel] AM 0400 Complete Blood Count [HEME] AM 0400 01/17/18 04:00 BMP [Basic Metabolic Panel] AM 0400 Complete Blood Count [HEME] AM 0400 01/18/18 04:00 BMP [Basic Metabolic Panel] AM 0400 Complete Blood Count [HEME] AM 0400 01/19/18 04:00 BMP [Basic Metabolic Panel] AM 0400 Complete Blood Count [HEME] AM 0400 Date of Encounter: 01/14/18 Time of Encounter: 16:26 - Discharge Diagnosis (1) Atrial fibrillation with RVR Priority: Primary Status: Resolved (2) (HFpEF) heart failure with preserved ejection fraction Priority: Secondary Status: Chronic (3) Chronic respiratory failure Priority: Secondary Status: Chronic Qualifiers: Respiratory failure complication: hypoxia and hypercapnia Qualified Code(s) : J96.11 - Chronic respiratory failure with hypoxia; J96.12 - Chronic respiratory failure with hypercapnia (4) Diabetes mellitus, type 2 Priority: Secondary Status: Chronic Qualifiers: Diabetes mellitus correction insulin use: without correction use Diabetes mellitus complication status: with hyperglycemia Qualified Code(s): E11.65 - Type 2 diabetes mellitus with hyperglycemia (5) HTN (hypertension) Priority: Secondary Status: Chronic Qualifiers: Hypertension type: essential hypertension Qualified Code(s): I10 - Essential (primary) hypertension (6) LUIS on CPAP Priority: Secondary Status: Chronic (7) Sacral decubitus ulcer Priority: Secondary Status: Chronic Qualifiers: Pressure ulcer stage: stage 2 Qualified Code(s): L89.152 - Pressure ulcer of sacral region, stage 2 (8) Small bowel obstruction Priority: Secondary Status: Acute (9) COPD (chronic obstructive pulmonary disease) Priority: Secondary Status: Acute Qualifiers: COPD type: emphysema Emphysema type: unspecified Qualified Code(s): J43.9 - Emphysema, unspecified Hospital course: Ms. Hebert is a 67 year old female admitted with Afib RVR from 01/12-. She presented to [facility] ED from outpt surgery office with tachycardia and was found to be in afib RVR. She was started on a cardizem drip and admitted for rate control. She was evaluated by Cardiology who increased her oral Cardizem to 180mg and she was able to be titrated off the drip. Her rate was controlled prior to discharge. She was thought to have HCAP at admission and was evaluated by Pulmonology, who reviewed her case and felt that there is evidence of interstitial lung disease and suspicion is nonspecific interstitial pneumonia, however patient will need open lung biopsy to have official diagnosis for this patient. She will need to follow up with Pulmonology as an outpatient. She was diuresed as fluid volume overload is likely what brought on the afib RVR. She will be discharged home with increased dose of lasix to 40mg daily until seen by PCP as her lungs still sounded wet on exam with rhonchi and rales. Torie Poole CNP with Gen Surgery evaluated her abdominal wound and has removed the wound vac. She will need daily dressing changes with non-adherent dressing until she has follow up with surgery. Pt discharged home with home health who is scheduled to visit 01/15 to change dressing. Discharge discussed with: patient, nurse, social work - Time Spent with Patient Total time spent providing and/or coordinating discharge services: - Discharge Medications Prescriptions: Diltiazem CD (24hr) [Cardizem CD] 180 mg PO DAILY 30 Days #30 cap.er.24h Furosemide [Lasix] 40 mg PO DAILY 5 Days #5 tablet Home Medications: Aspirin 81 mg PO DAILY 06/05/16 [History] Multivitamin [Multivitamins] 1 cap PO DAILY 06/05/16 [History] Ferrous Sulfate 325 mg PO DAILY 04/28/17 [History] Baclofen [Lioresal] 10 mg PO TID PRN 08/19/17 [History] Cholecalciferol (D-3) [Vitamin D] 2,000 unit PO DAILY #30 tablet 08/25/17 [Rx] Albuterol Sulfate [Ventolin Hfa] 2 puff IH Q6H PRN 09/11/17 [History] Beclomethasone Diprop 80mcg [QVAR 80 mcg] 1 puff IH BID 09/11/17 [History] BuPROPion XL (24 HR) [Wellbutrin Xl] 150 mg PO DAILY 09/11/17 [History] Cyanocobalamin (Vitamin B-12) [Vitamin B12] 1,000 mcg PO DAILY 10/29/17 [History ] Meclizine [Antivert] 25 mg PO DAILY PRN 10/29/17 [History] Oxygen 2 l .ROUTE AD 10/29/17 [History] Albuterol Neb [Proventil Neb] 2.5 mg IH Q2H PRN inhsol 11/07/17 [Rx] Nitroglycerin 0.4 mg SL Q5MIN PRN tab.subl 11/07/17 [Rx] Lipase/Protease/Amylase [Micky Dr 6,000 Units Capsule] 2 each PO ACHS #240 capsule.dr 11/17/17 [Rx] Magnesium Oxide [Mag-Ox] 400 mg PO TID 11/27/17 [History] GuaiFENesin Liq [Robitussin Liq] 200 mg PO Q6HR PRN udc 12/11/17 [Rx] Lactobacillus [Culturelle] 1 each PO BID cap.sprink 12/11/17 [Rx] Benzocaine/Menthol [Chloraseptic Sore Throat Lozng] 1 lozenge MM Q2H PRN box [Rx] Digoxin [Lanoxin] 0.125 mg PO DAILY #1 tablet 12/29/17 [Rx] Levalbuterol Neb [Xopenex Neb] 0.63 mg IH [id number] vial.neb 12/29/17 [Rx] Metoclopramide [Reglan] 10 mg PO BIDAC tablet 12/29/17 [Rx] Omeprazole [PriLOSEC] 20 mg PO BIDAC #2 cap 12/29/17 [Rx] Oxycodone HCl [Oxaydo] 5 mg PO Q6H PRN 1 Days #5 tablet.orl 12/29/17 [Rx] Saliva Stimulant [Biotene Moisturizing Rinse] 1 spray PO Q2H PRN bottle [Rx] Sucralfate [Carafate] 1 gm GTUBE QIDAC udc 12/29/17 [Rx] Diltiazem CD (24hr) [Cardizem CD] 180 mg PO DAILY 30 Days #30 cap.er.24h [Rx] Furosemide [Lasix] 40 mg PO DAILY 5 Days #5 tablet 01/14/18 [Rx] Allergies/Adverse Reactions: 3 Allergy/AdvReac Type Severity Reaction Status Date / Time peanut Allergy Hives Verified 11/26/17 10:44 zinc Allergy Hives Verified 11/26/17 10:44 Sulfa (Sulfonamide AdvReac Mild constipatio Verified 11/26/17 10:44 Antibiotics) n Date of admission: 01/12/18 00:20 Primary care physician: Maribel Fernandez Consults: 01/12/18 00:35 consult to wrapper sheeter [Consult to Nutrition] [CONS] Routine Comment: Consulting Provider: NUTRITION Reason for Dietary Consult: PO Supplementation 01/12/18 00:52 Consult to Wound Care [CONS] Routine Reason for Consult: Abdominal wound, patient from [facility] with wound vac. Call Completed: No 01/13/18 08:16 Consult to Occupational Therapy [CONS] Routine Comment: Evaluate, develop and implement POC Reason for Consult: Evaluate, develop and implement POC Does patient have active BEDREST order?: No Is patient medically & hemodynamically stable?: Yes Consult to Physical Therapy [CONS] Routine Comment: Evaluate, develop and implement POC Reason for Consult: Disposition planning. Therapy - weakness in bed. Does patient have active BEDREST order?: No Is patient medically & hemodynamically stable?: Yes 01/13/18 13:14 Consult to Pulmonology [CONS] Routine Consulting Provider: [facility] [place] Reason for Consult: Chronic resp failure, recurrent pneumonia Call Completed: Yes Discharging clinician: Brynn Harrington Anticipated date of discharge: 01/14/18 - Constitutional Vitals: Temp Pulse Resp BP Pulse Ox 98.3 F 85 16 103/64 97 01/14/18 16:17 01/14/18 16:17 01/14/18 16:17 01/14/18 16:17 01/14/18 16:17 General appearance: Present: cooperative, A&O X 3, no acute distress, answers questions appropriately - Head Head exam: Present: atraumatic, normocephalic - Eye Eye exam: Present: PERRL, conjuntiva pink, sclera anicteric Pupils: Present: PERRL - Neck Neck exam general surgery: Present: supple, trachea midline. Absent: lymphadenopathy - Respiratory Respiratory exam: Present: rales, rhonchi. Absent: respiratory distress, wheezes, tachypnea - Cardiovascular Cardiovascular exam: Present: RRR, +S1, +S2. Absent: diastolic murmur, gallop, rubs, systolic murmur - GI/Abdominal GI/Abdominal exam: Present: normal bowel sounds, soft. Absent: tenderness Additional comments: midline wound that is healing, no surrounding erythema or purulent drainage. - Extremities Exam Extremities exam: Present: warm, radial pulses palpable and symmetrical. Absent : calf tenderness, cyanotic, pedal edema - Neurological Exam Neurological exam: Present: oriented X3, no focal deficits. Absent: facial droop, speech deficit - Psychiatric Psychiatric exam: Present: anxious, depressed - Skin Skin exam: Present: dry, intact - Patient Status Disposition: Home Health Service Condition: Fair Functional capacity at discharge: bed bound Overall status at discharge: patient is progressing back to baseline - Discharge Instructions Instructions: Diltiazem (By mouth), Furosemide (By mouth), Atrial Flutter (DC) , Atrial Fibrillation (DC), Acute Respiratory Distress Syndrome (DC), Urinary Tract Infection in Women (DC), Diabetes Mellitus Type 2 in Adults (DC), Chronic Obstructive Pulmonary Disease (DC), Chronic Hypertension (DC), Bowel Obstruction (DC), Bowel Obstruction (GEN), Anemia (GEN), Sleep Apnea Syndrome, Wireline Field Operator (GEN) Follow Up With: Sloane Murphy DO [Primary Care Provider] - 01/19/18 10:45 am Florencia Painting MD [Partnered Physician] - Nav Denney MD [Partnered Physician] - Torie Poole CNP [Advanced Practice Nurse] - Additional Instructions: The dressing on your abdomen will need to be changed daily by home health. Your lasix dose was increased to 40mg daily until you see your PCP. Follow up with your PCP in 3-5 days, they will need to determine if you need to continue the increased dose of lasix. - Diet and Activity Activity: as per physical therapy Diet: low fat, low cholesterol - VTE Documentation of Mechanical Device: Intermittent pneumatic compression device <Jacob Garcia - Last Filed: 01/14/18 17:22> Orders not resulted at time of discharge: Pending orders 01/12/18 00:42 Culture,Blood [BC] Stat 01/15/18 04:00 BMP [Basic Metabolic Panel] AM 0400 Complete Blood Count [HEME] AM 0400 01/16/18 04:00 BMP [Basic Metabolic Panel] AM 0400 Complete Blood Count [HEME] AM 0400 01/17/18 04:00 BMP [Basic Metabolic Panel] AM 0400 Complete Blood Count [HEME] AM 0400 01/18/18 04:00 BMP [Basic Metabolic Panel] AM 0400 Complete Blood Count [HEME] AM 0400 01/19/18 04:00 BMP [Basic Metabolic Panel] AM 0400 Complete Blood Count [HEME] AM 0400 Date of Encounter: 01/14/18 - Discharge Diagnosis (1) Diabetes mellitus, type 2 Status: Chronic Qualifiers: Diabetes mellitus correction insulin use: without intermediate frame tender use Diabetes mellitus complication status: with hyperglycemia Qualified Code(s): E11.65 - Type 2 diabetes mellitus with hyperglycemia (2) LUIS on CPAP Status: Chronic (3) Sacral decubitus ulcer Status: Chronic Qualifiers: Pressure ulcer stage: stage 2 Qualified Code(s): L89.152 - Pressure ulcer of sacral region, stage 2 (4) (HFpEF) heart failure with preserved ejection fraction Status: Chronic (5) HTN (hypertension) Status: Chronic Qualifiers: Hypertension type: essential hypertension Qualified Code(s): I10 - Essential (primary) hypertension (6) Small bowel obstruction Status: Acute (7) Chronic respiratory failure Status: Chronic Qualifiers: Respiratory failure complication: hypoxia and hypercapnia Qualified Code(s) : J96.11 - Chronic respiratory failure with hypoxia; J96.12 - Chronic respiratory failure with hypercapnia (8) Atrial fibrillation with RVR Status: Resolved (9) COPD (chronic obstructive pulmonary disease) Status: Acute Qualifiers: COPD type: emphysema Emphysema type: unspecified Qualified Code(s): J43.9 - Emphysema, unspecified Hospital course: Ms. Hebert is a 67 year old female - Time Spent with Patient Total time spent providing and/or coordinating discharge services: Date of admission: 01/12/18 00:20 Primary care physician: Maribel Fernandez Consults: 01/12/18 00:35 consult to wrapper sheeter [Consult to Nutrition] [CONS] Routine Comment: Consulting Provider: NUTRITION Reason for Dietary Consult: PO Supplementation 01/12/18 00:52 Consult to Wound Care [CONS] Routine Reason for Consult: Abdominal wound, patient from [facility] with wound vac. Call Completed: No 01/13/18 08:16 Consult to Occupational Therapy [CONS] Routine Comment: Evaluate, develop and implement POC Reason for Consult: Evaluate, develop and implement POC Does patient have active BEDREST order?: No Is patient medically & hemodynamically stable?: Yes Consult to Physical Therapy [CONS] Routine Comment: Evaluate, develop and implement POC Reason for Consult: Disposition planning. Therapy - weakness in bed. Does patient have active BEDREST order?: No Is patient medically & hemodynamically stable?: Yes 01/13/18 13:14 Consult to Pulmonology [CONS] Routine Consulting Provider: [facility] [place] Reason for Consult: Chronic resp failure, recurrent pneumonia Call Completed: Yes - Constitutional Vitals: Temp Pulse Resp BP Pulse Ox 98.3 F 85 16 103/64 97 01/14/18 16:17 01/14/18 16:17 01/14/18 16:17 01/14/18 16:17 01/14/18 16:17 - Attending Attestation I examined this patient and my medical decision-making was reviewed with the Resident Physician. I agree with the documented findings, disposition and treatment plan as described except to the extent set forth below. She will be discharged on Lasix 40 mg PO daily which is increased from home medication dose. This should be reassessed on follow-up visit to see if she should return to 20 mg daily.
== END 2018-01-14 20:02 | disposition home health service (06) | DRG 309 ==
LOC: 2NENU 16:43 → EMEROO 16:43 → 2NENU 21:40 → SUATTDRO 01-12 00:20
PROVIDERS: ADMIT Family Medicine; ATTEND Student in an Organized Health Care Education/Training Program

== ENCOUNTER 2018-01-16 17:32 | Inpatient (IN) ==
[2018-01-16] MEDS ORDERED: Ondansetron 4 MG/2 ML VIAL IVP ONE (18:22)
[2018-01-16] MEDS ORDERED: 0.9 % Sodium Chloride 1,000 ML IVC ONE (18:22)
[2018-01-16] MEDS ORDERED: Isovue-370 500 ML INFUS..BTL IV ONE (18:27)
--- NOTE | 2018-01-16 18:41 | Emergency Department Note ---
Disposition Clinical Impression: General weakness Diarrhea Qualifiers: Diarrhea type: unspecified type Qualified Code(s): R19.7 - Diarrhea, unspecified Disposition: Admitted As Inpatient Condition: Fair Referrals: Sloane Murphy DO [Partnered Physician] - Forms: Work/School Release, ED Satisfaction Letter Time of Disposition: 22:02 Nausea/Vomiting/Diarrhea HPI - General Chief complaint: ED Nausea/Vomiting/Diarrhea Stated complaint: diarrhea, dizziness Time Seen by Provider: 01/16/18 17:38 Source: patient Mode of arrival: EMS Limitations: no limitations Nursing Notes Reviewed: Yes Vital Signs Reviewed: Yes - History of Present Illness HPI Narrative: 67-year-old female presented to the emergency department for generalized weakness and diarrhea. Patient does have history of A. fib which is controlled with medications as well as having a defibrillator. She is not on anticoagulation due to recent surgeries. Patient has had many small bowel obstructions recent one was approximately one to 2 weeks ago where she was admitted and had's general surgery do surgery on her to fix it. This was done approximately one week ago I Dr. Chauhan she was discharged from the hospital 3 days ago for this event. She has recently been on antibiotics. Patient does have history of C. difficile but says that this is now she has at this time as it does not smell the same. Her diarrhea is 5-6 times per day for 1 day. Says it is soft stools with a little liquid. Last time she urinated was this morning. She also recently got started on Lasix. She is having no chest pain or shortness of breath. She has mild abdominal pain that is generalized but nothing new or acute. She does have a G-tube placed for feeding but has not used in 3 weeks. There is been no recent falls. Patient has no one-sided weakness. Patient has been nauseous but has not taken anything for there is been no vomiting no bilious are not or no bloody vomit Otherwise patient has no complaints including fevers, chills, vomiting, chest pain shortness of breath , pain with urination, pain Radha down the arms or legs, neck pain, back pain - Related Data Home Medications Medication Instructions Recorded Confirmed Aspirin 81 mg PO DAILY 06/05/16 01/11/18 Multivitamin [Multivitamins] 1 cap PO DAILY 06/05/16 01/11/18 Ferrous Sulfate 325 mg PO DAILY 04/28/17 01/11/18 Baclofen [Lioresal] 10 mg PO TID PRN 08/19/17 01/11/18 Albuterol Sulfate [Ventolin Hfa] 2 puff IH Q6H PRN 09/11/17 01/11/18 Beclomethasone Diprop 80mcg [QVAR 1 puff IH BID 09/11/17 01/11/18 80 mcg] BuPROPion XL (24 HR) [Wellbutrin 150 mg PO DAILY 09/11/17 01/11/18 Xl] Cyanocobalamin (Vitamin B-12) 1,000 mcg PO DAILY 10/29/17 01/11/18 [Vitamin B12] Meclizine [Antivert] 25 mg PO DAILY PRN 10/29/17 01/11/18 Oxygen 2 l .ROUTE AD 10/29/17 01/11/18 Magnesium Oxide [Mag-Ox] 400 mg PO TID 11/27/17 01/11/18 Previous Rx's Medication Instructions Recorded Cholecalciferol (D-3) [Vitamin D] 2,000 unit PO DAILY #30 tablet 08/25/17 Albuterol Neb [Proventil Neb] 2.5 mg IH Q2H PRN inhsol 11/07/17 Nitroglycerin 0.4 mg SL Q5MIN PRN tab.subl 11/07/17 Lipase/Protease/Amylase [Creon Dr 2 each PO ACHS #240 capsule. 11/17/17 6,000 Units Capsule] GuaiFENesin Liq [Robitussin Liq] 200 mg PO Q6HR PRN udc 12/11/17 Lactobacillus [Culturelle] 1 each PO BID cap.sprink 12/11/17 Benzocaine/Menthol [Chloraseptic 1 lozenge MM Q2H PRN box 12/29/17 Sore Throat Lozng] Digoxin [Lanoxin] 0.125 mg PO DAILY #1 tablet 12/29/17 Levalbuterol Neb [Xopenex Neb] 0.63 mg IH [id number] vial.neb 12/29/17 Metoclopramide [Reglan] 10 mg PO BIDAC tablet 12/29/17 Omeprazole [PriLOSEC] 20 mg PO BIDAC #2 cap 12/29/17 Oxycodone HCl [Oxaydo] 5 mg PO Q6H PRN 1 Days #5 12/29/17 tablet.orl Saliva Stimulant [Biotene 1 spray PO Q2H PRN bottle 12/29/17 Moisturizing Rinse] Sucralfate [Carafate] 1 gm GTUBE QIDAC udc 12/29/17 Diltiazem CD (24hr) [Cardizem CD] 180 mg PO DAILY 30 Days #30 01/14/18 cap.er.24h Furosemide [Lasix] 40 mg PO DAILY 5 Days #5 tablet 01/14/18 Allergies Allergy/AdvReac Type Severity Reaction Status Date / Time peanut Allergy Hives Verified 11/26/17 10:44 zinc Allergy Hives Verified 11/26/17 10:44 Sulfa (Sulfonamide AdvReac Mild constipatio Verified 11/26/17 10:44 Antibiotics) n Review of Systems: 10 point review of systems done and negative unless otherwise stated in the history of present illness. All systems ED: reviewed and negative except as stated. Review of Systems: As Per HPI Past Medical History - Past Medical History Attestation: Yes The following information was validated with the patient. Source: patient Medical history: Reports: atrial fibrillation, CHF, COPD, coronary artery disease, diabetes, hyperlipidemia, hypertension, myocardial infarction, other Surgical history: Reports: hysterectomy, orthopedic, other, pacemaker/AICD, other Psychiatric history: Reports: no psych history ACCOUNTS PAYABLE ASSOCIATE history: Reports: no ACCOUNTS PAYABLE ASSOCIATE history - Social History Smoking Status: Never smoker Smokeless Tobacco Status: No Alcohol use: Reports: none Drug use: Reports: none Physical Exam - General Limitations: no limitations General appearance: lethargic - Head Head exam: atraumatic, normocephalic, normal inspection - Eye Eye exam: Present: normal appearance, PERRL, EOMI - ENT ENT exam: normal exam, normal oropharynx, mucous membranes moist - Neck Neck exam: Present: normal inspection, full ROM, trachea midline - Chest Chest inspection: Present: normal inspection, symmetric chest wall rise - Respiratory Respiratory exam: Present: normal lung sounds bilaterally - Cardiovascular Cardiovascular exam: Present: regular rate, normal rhythm, normal heart sounds - Abdominal Exam Abdominal exam: Present: soft, tenderness (General eyes in all quadrants), diminished bowel sounds, other (G-tube placed. No erythema around the site does look well.). Absent: distention, guarding, rebound, rigidity, Hoffmann's sign, Rovsing's sign, tenderness at McBurney's Point - Extremities Exam Extremities exam: Present: normal inspection, full ROM. Absent: tenderness, pedal edema - Expanded Lower Extremity Exam Neurovascular/Tendon exam: Absent: motor deficit, sensory deficit, tendon deficit - Back Exam Back exam: Present: normal inspection, full ROM. Absent: tenderness, CVA tenderness (R), CVA tenderness (L) - Neurological Exam Neurological exam: Present: alert, oriented X3 - Skin Skin exam: Present: warm, dry, intact, normal color Course Course Narrative: 67-year-old female presented to the emergency department complaining of diarrhea and generalized weakness as well as nausea. We will get basic labs this patient does seem to be dehydrated. Including CBC, BMP, lipase, lactate. We will also get CT abdomen and pelvis with contrast. We will start patient on 1 L IV bolus normal saline as well as Zofran for the nausea. Patient family okay with this plan. We will reevaluate after labs, imaging, medications Vital Signs Temperature 97.6 F 01/16/18 18:05 Pulse Rate 61 01/16/18 18:05 Respiratory Rate 15 01/16/18 18:05 Blood Pressure 96/62 01/16/18 18:05 O2 Sat by Pulse Oximetry 100 01/16/18 18:05 Temperature 97.6 F 01/16/18 18:12 Pulse Rate 57 01/16/18 21:03 Respiratory Rate 16 01/16/18 21:03 Blood Pressure 92/58 01/16/18 21:03 O2 Sat by Pulse Oximetry 100 01/16/18 21:03 Oxygen Delivery Oxygen Delivery Room Air Nausea/Vomiting/Diarrhea - [facility] Narrative Medical decision making narrative: 67-year-old female presents to the emergency department complaining of diarrhea and generalized weakness. Labs came back with no acute abnormalities other than showing mild dehydration. Lipase and lactate were both normal. CT abdomen and pelvis did show an ileus but no other acute findings. Patient does not feel comfortable going home. Due to this we are going to admit the patient to the hospitalist service. Patient is admitted in stable condition at this time. Patient was given IV fluids as well as Tylenol for headache. Zofran was also given for the nausea. Nausea is nearly gone at this time. Stool samples will not ordered as stools while in the emergency department were not liquid they were just soft. Patient states she has had C. difficile in the past but this does not smell like it. Patient's abdomen was not tender or did not show any surgical acute abdomen signs. Abdomen/Pelvis CT 01/16/18 18:27 IMPRESSION: 1. Distended fluid filled small bowel loops with gradual transition to the distal small bowel. The colon remains decompressed. The findings may be related to a persistent severe ileus. Close follow-up recommended. 2. Colonic diverticulosis with no acute features. The appendix is unremarkable. 3. Focal fluid collection in the pelvis with mild marginal enhancement. No other focal abdominal or pelvic collection is seen. No significant free fluid. 4. Mild diffuse anasarca. Small gas bubbles associated within the midline abdominal incision. No focal subcutaneous abscess. 5. Stable interstitial changes at the lung bases compared to recent chest CT. D/ / 01/16/2018 21:25:44 Rasheed Womack MD / thiago Interpreting Provider: Rasheed Womack MD - Medical Records Medical records reviewed: Yes I reviewed the patient's medical records. - Lab Data Lab results reviewed: Yes I reviewed the patient's lab results. Result diagrams: 01/16/18 20:35 01/16/18 19:52 Lab Results 01/16/18 01/16/18 01/16/18 Range/Units 19:52 19:52 19:59 WBC (4.3-11.1) K/mcL RBC (3.82-4.97) M/mcL Hgb (11.5-15.4) g/dL Hct (35.3-44.9) % MCV (83.0-100.0) fL MCH (28.0-33.3) pg MCHC (31.6-35.5) g/dL RDW (11.5-14.5) % Plt Count (140-400) K/mcL MPV (9.4-12.4) fL Immature Gran % (0-4) % Seg Neutrophils % % Lymphocytes % % Monocytes % % Eosinophils % % Basophils % % Neutrophils # (1.6-8.9) K/mcL Lymphocytes # (0.6-4.6) K/mcL Monocytes # (0.0-1.3) K/mcL Eosinophils # (0.0-0.6) K/mcL Basophils # (0.0-0.2) K/mcL PT 13.2 H (9.4-12.1) Seconds INR 1.2 Sodium 135 L (136-145) mEq/L Potassium 6.0 H (3.5-5.1) mEq/L Chloride 103 (98-107) mEq/L Carbon Dioxide 26 (23-29) mEq/L BUN 31 H (8-23) mg/dL Creatinine 0.71 (0.60-1.20) mg/dL Est GFR ( Amer) > 60 (> 60) Est GFR (Non-Af Amer) > 60 (> 60) BUN/Creatinine Ratio 44 H (6-26) Glucose 127 H (70-105) mg/dL Calculated Osmolality 288 (280-300) Lactic Acid (0.5-2.2) mmol/L Calcium 8.8 (8.6-10.3) mg/dL Total Bilirubin 0.4 (0.3-1.0) mg/dL Direct Bilirubin 0.1 (0.0-0.2) mg/dL Indirect Bilirubin 0.3 (0.0-1.2) mg/dL AST 19 (13-39) Units/L ALT 7 (7-52) Units/L Alkaline Phosphatase 74 (34-104) Units/L Troponin I < 0.03 (< 0.04) ng/mL Serum Total Protein 7.1 (6.4-8.9) g/dL Albumin 2.7 L (3.5-5.7) g/dL Globulin 4.4 H (2.4-3.5) g/dL Albumin/Globulin Ratio 0.6 L (1.1-2.2) Lipase 26 (11-82) Units/L Urine Color Yellow (Yellow) Urine Clarity Cloudy A (Clear) Urine pH 5.0 (5.0-8.0) pH Units Ur Specific [place] 1.022 (1.010-1.025) Urine Protein Trace (Neg-Trace) mg/dL Urine Glucose (UA) Normal (Normal) mg/dL Urine Ketones Trace H (Negative) mg/dL Urine Blood Negative (Negative) Urine Nitrite Negative (Negative) Urine Bilirubin Negative (Negative) Urine Urobilinogen Normal (Normal) mg/dL Ur Leukocyte Esterase Moderate H (Negative) Urine Microscopic RBC 0-3 (0-3) per hpf Urine Microscopic WBC 50-100 H (0-3) per hpf Ur Squamous Epith Cells Many H (None-Few) per lpf Ur Renal Epithelial Cell Few (None-Few) per hpf Urine Bacteria Few (None-Few) per hpf Hyaline Casts Moderate H (None-Few) per lpf Granular Casts Few H (None Seen) per lpf Urine Mucus Few (Few) Urine Yeast Many H (None Seen) per hpf Ur Culture Indicated? NO. A (NO) 01/16/18 01/16/18 Range/Units 20:35 20:35 WBC 11.9 H D (4.3-11.1) K/mcL RBC 3.74 L (3.82-4.97) M/mcL Hgb 10.4 L (11.5-15.4) g/dL Hct 34.4 L (35.3-44.9) % MCV 92.0 (83.0-100.0) fL MCH 27.8 L (28.0-33.3) pg MCHC 30.2 L (31.6-35.5) g/dL RDW 17.5 H (11.5-14.5) % Plt Count 362 (140-400) K/mcL MPV 9.8 (9.4-12.4) fL Immature Gran % 0.6 (0-4) % Seg Neutrophils % 69.4 % Lymphocytes % 16.3 % Monocytes % 12.2 % Eosinophils % 0.8 % Basophils % 0.7 % Neutrophils # 8.3 (1.6-8.9) K/mcL Lymphocytes # 1.9 (0.6-4.6) K/mcL Monocytes # 1.5 H (0.0-1.3) K/mcL Eosinophils # 0.1 (0.0-0.6) K/mcL Basophils # 0.1 (0.0-0.2) K/mcL PT (9.4-12.1) Seconds INR Sodium (136-145) mEq/L Potassium (3.5-5.1) mEq/L Chloride (98-107) mEq/L Carbon Dioxide (23-29) mEq/L BUN (8-23) mg/dL Creatinine (0.60-1.20) mg/dL Est GFR ( Amer) (> 60) Est GFR (Non-Af Amer) (> 60) BUN/Creatinine Ratio (6-26) Glucose (70-105) mg/dL Calculated Osmolality (280-300) Lactic Acid 0.7 (0.5-2.2) mmol/L Calcium (8.6-10.3) mg/dL Total Bilirubin (0.3-1.0) mg/dL Direct Bilirubin (0.0-0.2) mg/dL Indirect Bilirubin (0.0-1.2) mg/dL AST (13-39) Units/L ALT (7-52) Units/L Alkaline Phosphatase (34-104) Units/L Troponin I (< 0.04) ng/mL Serum Total Protein (6.4-8.9) g/dL Albumin (3.5-5.7) g/dL Globulin (2.4-3.5) g/dL Albumin/Globulin Ratio (1.1-2.2) Lipase (11-82) Units/L Urine Color (Yellow) Urine Clarity (Clear) Urine pH (5.0-8.0) pH Units Ur Specific [place] (1.010-1.025) Urine Protein (Neg-Trace) mg/dL Urine Glucose (UA) (Normal) mg/dL Urine Ketones (Negative) mg/dL Urine Blood (Negative) Urine Nitrite (Negative) Urine Bilirubin (Negative) Urine Urobilinogen (Normal) mg/dL Ur Leukocyte Esterase (Negative) Urine Microscopic RBC (0-3) per hpf Urine Microscopic WBC (0-3) per hpf Ur Squamous Epith Cells (None-Few) per lpf Ur Renal Epithelial Cell (None-Few) per hpf Urine Bacteria (None-Few) per hpf Hyaline Casts (None-Few) per lpf Granular Casts (None Seen) per lpf Urine Mucus (Few) Urine Yeast (None Seen) per hpf Ur Culture Indicated? (NO) - Radiology Data Radiology results reviewed: Yes I reviewed the patient's radiology results. - EKG Data EKG attestation: Yes I reviewed and interpreted this EKG. EKG results narrative: EKG done at 1801 review by myself and the attending shows sinus rhythm at a rate of 61, VT interval 177, QRS 101, QTC 384 with a normal axis. There is no acute ST changes no acute T-wave changes no other signs of ischemia. No signs of any heart block, heart strain, heart hypertrophy. No WPW/Brugada syndrome. Otherwise normal EKG
--- NOTE | 2018-01-16 19:55 | Emergency Department Note ---
Disposition Clinical Impression: General weakness Diarrhea Qualifiers: Diarrhea type: unspecified type Qualified Code(s): R19.7 - Diarrhea, unspecified Disposition: Still a Patient Condition: Fair Forms: ED Satisfaction Letter, Work/School Release General Adult HPI - General Chief complaint: ED Nausea/Vomiting/Diarrhea Stated complaint: diarrhea, dizziness Time Seen by Provider: 01/16/18 17:38 Source: patient Mode of arrival: EMS Limitations: no limitations - History of Present Illness Pain Scale: 1 - Related Data Home Medications Medication Instructions Recorded Confirmed Aspirin 81 mg PO DAILY 06/05/16 01/11/18 Multivitamin [Multivitamins] 1 cap PO DAILY 06/05/16 01/11/18 Ferrous Sulfate 325 mg PO DAILY 04/28/17 01/11/18 Baclofen [Lioresal] 10 mg PO TID PRN 08/19/17 01/11/18 Albuterol Sulfate [Ventolin Hfa] 2 puff IH Q6H PRN 09/11/17 01/11/18 Beclomethasone Diprop 80mcg [QVAR 1 puff IH BID 09/11/17 01/11/18 80 mcg] BuPROPion XL (24 HR) [Wellbutrin 150 mg PO DAILY 09/11/17 01/11/18 Xl] Cyanocobalamin (Vitamin B-12) 1,000 mcg PO DAILY 10/29/17 01/11/18 [Vitamin B12] Meclizine [Antivert] 25 mg PO DAILY PRN 10/29/17 01/11/18 Oxygen 2 l .ROUTE AD 10/29/17 01/11/18 Magnesium Oxide [Mag-Ox] 400 mg PO TID 11/27/17 01/11/18 Previous Rx's Medication Instructions Recorded Cholecalciferol (D-3) [Vitamin D] 2,000 unit PO DAILY #30 tablet 08/25/17 Albuterol Neb [Proventil Neb] 2.5 mg IH Q2H PRN inhsol 11/07/17 Nitroglycerin 0.4 mg SL Q5MIN PRN tab.subl 11/07/17 Lipase/Protease/Amylase [Micky Ramos 2 each PO ACHS #240 capsule. 11/17/17 6,000 Units Capsule] GuaiFENesin Liq [Robitussin Liq] 200 mg PO Q6HR PRN udc 12/11/17 Lactobacillus [Culturelle] 1 each PO BID cap.sprink 12/11/17 Benzocaine/Menthol [Chloraseptic 1 lozenge MM Q2H PRN box 12/29/17 Sore Throat Lozng] Digoxin [Lanoxin] 0.125 mg PO DAILY #1 tablet 12/29/17 Levalbuterol Neb [Xopenex Neb] 0.63 mg IH [id number] vial.neb 12/29/17 Metoclopramide [Reglan] 10 mg PO BIDAC tablet 12/29/17 Omeprazole [PriLOSEC] 20 mg PO BIDAC #2 cap 12/29/17 Oxycodone HCl [Oxaydo] 5 mg PO Q6H PRN 1 Days #5 12/29/17 tablet.orl Saliva Stimulant [Biotene 1 spray PO Q2H PRN bottle 12/29/17 Moisturizing Rinse] Sucralfate [Carafate] 1 gm GTUBE QIDAC udc 12/29/17 Diltiazem CD (24hr) [Cardizem CD] 180 mg PO DAILY 30 Days #30 01/14/18 cap.er.24h Furosemide [Lasix] 40 mg PO DAILY 5 Days #5 tablet 01/14/18 Allergies Allergy/AdvReac Type Severity Reaction Status Date / Time peanut Allergy Hives Verified 11/26/17 10:44 zinc Allergy Hives Verified 11/26/17 10:44 Sulfa (Sulfonamide AdvReac Mild constipatio Verified 11/26/17 10:44 Antibiotics) n Past Medical History - Past Medical History Medical history: Reports: atrial fibrillation, CHF, COPD, coronary artery disease, diabetes, hyperlipidemia, hypertension, myocardial infarction, other Surgical history: Reports: hysterectomy, orthopedic, other, pacemaker/AICD, other Psychiatric history: Reports: no psych history COURT SPECIALIST history: Reports: no COURT SPECIALIST history - Social History Smoking Status: Never smoker Smokeless Tobacco Status: No Alcohol use: Reports: none Drug use: Reports: none Physical Exam - General Limitations: no limitations General appearance: lethargic Course Vital Signs Temperature 97.6 F 01/16/18 18:05 Pulse Rate 61 01/16/18 18:05 Respiratory Rate 15 01/16/18 18:05 Blood Pressure 96/62 01/16/18 18:05 O2 Sat by Pulse Oximetry 100 01/16/18 18:05 Temperature 97.6 F 01/16/18 18:12 Pulse Rate 60 01/16/18 18:12 Respiratory Rate 15 01/16/18 18:12 Blood Pressure 96/62 01/16/18 18:12 O2 Sat by Pulse Oximetry 100 01/16/18 18:12 Oxygen Delivery Oxygen Delivery Nasal Cannula Attestation Statement - Attestation Attestation: I examined this patient and my medical decision-making was reviewed with the Resident Physician. I agree with the documented findings, disposition and treatment plan as described except to the extent set forth below. 67yo F with hx of bowel obstructions, Lisa fib presents to ER with diarrhea and weakness. Patient has been feeling increasingly weak over the past few days. She is passing gas. Denies blood in her diarrhea. No recent traveling. Patient has recently been on antibiotics. She does have a history of C. difficile in the past as well and does not feel that this diarrhea is the same as that then. There is no documented fevers. She denies chest pain. No shortness of breath. She denies any abdominal pain at this time in the emergency room. She states she does feels rundown and weak. On exam, she appears to be dry and dehydrated. This is likely from all the diarrhea. With her extensive history of bowel obstructions we will go ahead and do a CT scan abdomen and pelvis to evaluate for any new pathology for any developing bowel obstruction. We will give her IV fluids. She did receive Zofran which helped with some of her nausea. Her EKG did not show any significant findings. Disposition is pending at this time based on her lab work and imaging results.
[2018-01-16 20:09] LABS: Bilirubin,Urine Negative (Negative); Blood,Urine Negative (Negative); Clarity,Urine Cloudy (Clear); Color,Urine Yellow (Yellow); Glucose,Urine (UA) Normal (Normal); Ketones,Urine Trace mg/dL (Negative); Leukocyte Esterase,Urine Moderate (Negative); Nitrite,Urine Negative (Negative); Protein,Urine Trace mg/dL (Neg-Trace); Specific Gravity,Urine 1.022 (1.010-1.025); Urobilinogen,Urine Normal (Normal)
[2018-01-16 20:12] LABS: RBC,Urine 0-3 per hpf (0-3); Squamous Epithelial Cell,Urine Many per lpf (None-Few); WBC,Urine 50-100 per hpf (0-3)
[2018-01-16 20:16] LABS: INR 1.2; Prothrombin Time 13.2 Seconds (9.4-12.1)
[2018-01-16 20:24] LABS: Granular Casts,Urine Few per lpf (None Seen); Hyaline Casts,Urine Moderate per lpf (None-Few); Mucus,Urine Few (Few); Renal Epithelial Cells,Urine Few per hpf (None-Few)
[2018-01-16 20:25] LABS: Bacteria,Urine Few per hpf (None-Few); Yeast,Urine Many per hpf (None Seen)
[2018-01-16 20:26] LABS: Troponin I < 0.03 ng/mL (< 0.04)
[2018-01-16 20:28] LABS: Alanine Aminotransferase 7 Units/L (7-52); Albumin 2.7 g/dL (3.5-5.7); Albumin/Globulin Ratio 0.6 (1.1-2.2); Alkaline Phosphatase 74 Units/L (34-104); Aspartate Amino Transferase 19 Units/L (13-39); BUN/Creatinine Ratio 44 (6-26); Bilirubin,Direct 0.1 mg/dL (0.0-0.2); Bilirubin,Indirect 0.3 mg/dL (0.0-1.2); Bilirubin,Total 0.4 mg/dL (0.3-1.0); Blood Urea Nitrogen 31 mg/dL (8-23); Calcium 8.8 mg/dL (8.6-10.3); Carbon Dioxide 26 mEq/L (23-29); Chloride 103 mEq/L (98-107); Globulin 4.4 g/dL (2.4-3.5); Glucose 127 mg/dL (70-105); Lipase 26 Units/L (11-82); Osmolality,Calculated 288 (280-300); Sodium 135 mEq/L (136-145); Total Protein 7.1 g/dL (6.4-8.9); eGFR For African Americans > 60 (> 60); eGFR For Non-African Americans > 60 (> 60)
[2018-01-16 20:51] LABS: Basophils # 0.1 K/mcL (0.0-0.2); Basophils % 0.7 %; Eosinophils # 0.1 K/mcL (0.0-0.6); Eosinophils % 0.8 %; Hematocrit 34.4 % (35.3-44.9); Hemoglobin 10.4 g/dL (11.5-15.4); Immature Granulocytes % 0.6 % (0-4); Lymphocytes # 1.9 K/mcL (0.6-4.6); Lymphocytes % 16.3 %; Mean Corpuscular HGB Conc 30.2 g/dL (31.6-35.5); Mean Corpuscular Hemoglobin 27.8 pg (28.0-33.3); Mean Platelet Volume 9.8 fL (9.4-12.4); Monocytes # 1.5 K/mcL (0.0-1.3); Monocytes % 12.2 %; Platelet Count 362 K/mcL (140-400); Red Blood Count 3.74 M/mcL (3.82-4.97); Red Cell Distribution Width 17.5 % (11.5-14.5); Segmented Neutrophils % 69.4 %
[2018-01-16 20:52] LABS: Neutrophils # 8.3 K/mcL (1.6-8.9)
[2018-01-16] MEDS ORDERED: Acetaminophen 325 MG TABLET PO ONE (21:35)
[2018-01-16] MEDS ORDERED: Naloxone 0.4 MG/ML INJ IVP PRN (23:17)
[2018-01-16] MEDS ORDERED: Baclofen 10 MG TABLET PO PRN (23:23)
[2018-01-16] MEDS ORDERED: Nitroglycerin 0.4 MG TAB.SUBL SL PRN (23:23)
[2018-01-16] MEDS ORDERED: Albuterol 2.5 MG/3 ML NEBULIZER IH PRN (23:23)
[2018-01-16] MEDS ORDERED: Saliva Stimulant 100ml BOTTLE PO PRN (23:23)
[2018-01-16] MEDS ORDERED: D5% in 0.45% NACL 1,000 ML IVC SCH (23:30)
--- NOTE | 2018-01-16 23:33 | Internal Med History&Physical ---
Date of Encounter: 01/16/18 Time of Encounter: 22:00 Internal Medicine - H&P: HPI Chief complaint: Diarrhea Admitted From: Home Plans for Post Hospital Care: Home History of present illness: Ms. Hebert is a 67 year old female present to ER for diarrhea and weakness. Past medical history is significant for recent surgery for small bowel obstruction, A. fib, COPD, LUIS on CPAP, CAD. Patient was recently hospitalized for A. fib RVR and discharged home on Wednesday. Today patient to feel generalized weakness, lightheaded, diarrhea 5 with watery stool. Patient has a mild nausea but no vomiting. Patient denies fever. Patient said she had C. difficile colitis previously and she does not think the diarrhea is like previous C. difficile. Patient's BP is at the lower side at 92/58. Lab shows mild elevated BUN. Patient was admitted for further management. I have discussed CODE STATUS with this patient. Patient is AAO 3 and clearly told me she does not want CPR but accept intubation. DNR CCA placed. Past Med Surg Social Fam HX - Past Medical History Medical history: atrial fibrillation, CHF, COPD, coronary artery disease, diabetes, hyperlipidemia, hypertension, myocardial infarction, other Additional medical history: IBS Psychiatric history: no psych history - Past Surgical History Surgical History: hysterectomy, orthopedic, other, pacemaker/AICD, other Additional surgical history: dawit knee replacement. achilles tendons sx - Social History Smoking Status: Never smoker Smokeless Tobacco Status: No Alcohol use: none Drug use: none - Family History Father Adopted: No Family Member Ethnicity: Non- Living Status: Hx Family Cardiac Disorders: No Hx Family Respiratory Disorders: Yes (COPD) Hx Family Cancer: No Hx Family GI Disorders: No Hx Family Endocrine Disorder: No Hx Family Neuromuscular Disorders: No Hx Family Neurologic Disorders: No Hx Family HEENT Disorders: No Hx Family Autoimmune Disorders: No Mother Living Status: Hx Family Cardiac Disorders: Yes Hx Family Endocrine Disorder: Yes Internal Medicine - H&P: Meds Aspirin 81 mg PO DAILY 06/05/16 [History] Multivitamin [Multivitamins] 1 cap PO DAILY 06/05/16 [History] Ferrous Sulfate 325 mg PO DAILY 04/28/17 [History] Baclofen [Lioresal] 10 mg PO TID PRN 08/19/17 [History] Cholecalciferol (D-3) [Vitamin D] 2,000 unit PO DAILY #30 tablet 08/25/17 [Rx] Albuterol Sulfate [Ventolin Hfa] 2 puff IH Q6H PRN 09/11/17 [History] Beclomethasone Diprop 80mcg [QVAR 80 mcg] 1 puff IH BID 09/11/17 [History] BuPROPion XL (24 HR) [Wellbutrin Xl] 150 mg PO DAILY 09/11/17 [History] Cyanocobalamin (Vitamin B-12) [Vitamin B12] 1,000 mcg PO DAILY 10/29/17 [History ] Oxygen 2 l .ROUTE AD 10/29/17 [History] Albuterol Neb [Proventil Neb] 2.5 mg IH Q2H PRN inhsol 11/07/17 [Rx] Nitroglycerin 0.4 mg SL Q5MIN PRN tab.subl 11/07/17 [Rx] Lipase/Protease/Amylase [Creon Dr 6,000 Units Capsule] 2 each PO ACHS #240 capsule.dr 11/17/17 [Rx] Magnesium Oxide [Mag-Ox] 400 mg PO TID 11/27/17 [History] GuaiFENesin Liq [Robitussin Liq] 200 mg PO Q6HR PRN udc 12/11/17 [Rx] Lactobacillus [Culturelle] 1 each PO BID cap.sprink 12/11/17 [Rx] Digoxin [Lanoxin] 0.125 mg PO DAILY #1 tablet 12/29/17 [Rx] Levalbuterol Neb [Xopenex Neb] 0.63 mg IH [id number] vial.neb 12/29/17 [Rx] Metoclopramide [Reglan] 10 mg PO BIDAC tablet 12/29/17 [Rx] Omeprazole [PriLOSEC] 20 mg PO BIDAC #2 cap 12/29/17 [Rx] Oxycodone HCl [Oxaydo] 5 mg PO Q6H PRN 1 Days #5 tablet.orl 12/29/17 [Rx] Saliva Stimulant [Biotene Moisturizing Rinse] 1 spray PO Q2H PRN bottle [Rx] Sucralfate [Carafate] 1 gm GTUBE QIDAC udc 12/29/17 [Rx] Diltiazem CD (24hr) [Cardizem CD] 180 mg PO DAILY 30 Days #30 cap.er.24h [Rx] Furosemide [Lasix] 40 mg PO DAILY 5 Days #5 tablet 01/14/18 [Rx] 3 Allergy/AdvReac Type Severity Reaction Status Date / Time peanut Allergy Hives Verified 11/26/17 10:44 zinc Allergy Hives Verified 11/26/17 10:44 Sulfa (Sulfonamide AdvReac Mild constipatio Verified 11/26/17 10:44 Antibiotics) n All Systems PM: A 10-system review of systems was performed and is negative for pertinent findings except as documented above in the HPI. - Constitutional Vitals: Temp Pulse Resp BP Pulse Ox 97.6 F 58 16 98/54 100 01/16/18 18:12 01/16/18 22:06 01/16/18 22:06 01/16/18 22:06 01/16/18 22:06 General appearance: Present: cachectic, A&O X 3, no acute distress, answers questions appropriately - Head Head exam: Present: atraumatic, normocephalic - Eye Eye exam: Present: PERRL, conjuntiva pink, sclera anicteric Pupils: Present: PERRL - Neck Neck exam general surgery: Present: supple, trachea midline. Absent: lymphadenopathy - Respiratory Respiratory exam: Present: CTAB. Absent: accessory muscle use, rales, rhonchi, wheezes - Cardiovascular Cardiovascular exam: Present: RRR, +S1, +S2. Absent: diastolic murmur, gallop, rubs, systolic murmur Additional comments: PPM is in place. - GI/Abdominal GI/Abdominal exam: Present: normal bowel sounds, soft, no peritoneal signs. Absent: distended, tenderness Additional comments: PEG tube is in place but patient said that she does not use it for 3 weeks. Lower abdominal wound well dressed. - Extremities Exam Extremities exam: Present: warm, radial pulses palpable and symmetrical. Absent : calf tenderness, cyanotic, pedal edema - Neurological Exam Neurological exam: Present: CN II-XII intact, oriented X3, no focal deficits. Absent: pronater drift, facial droop, speech deficit - Skin Skin exam: Present: dry, intact Internal Med - H&P Results - Labs CBC & Chem 7: 01/16/18 20:35 01/16/18 19:52 - Assessment and plan (1) General weakness Current Visit: Yes Status: Acute Assessment and plan: Patient has generalized weakness. Patient has poor intake since abdominal surgery. Patient has diarrhea, which caused dehydration. - Place patient on IV fluid. - Consult dietitian for nutrition status evaluation. (2) Diarrhea Current Visit: Yes Status: Chronic Assessment and plan: Etiology is undetermined. Patient has experienced of C. difficile infection and think it is not C. difficile. - Continue closely monitor electrolytes level - Check GI stool panel - IV fluid for dehydration. - Hold home medication Mg oxide Qualifiers: Diarrhea type: unspecified type Qualified Code(s): R19.7 - Diarrhea, unspecified (3) COPD (chronic obstructive pulmonary disease) Current Visit: No Status: Acute Assessment and plan: No wheezing. Continue home medication. Qualifiers: COPD type: emphysema Emphysema type: unspecified Qualified Code(s): J43.9 - Emphysema, unspecified (4) DVT prophylaxis Current Visit: No Status: Acute Assessment and plan: EPCDs (5) Atrial fibrillation/flutter Current Visit: No Status: Chronic Assessment and plan: Paroxysmal A. fib, right now sinus rhythm. Patient is on aspirin. Per cardiology previous note, patient cannot tolerate anticoagulation because of history of alveolar hemorrhage. (6) Coronary artery disease Current Visit: No Status: Chronic Assessment and plan: Denies chest pain. Continue home medications Qualifiers: Coronary Disease-Associated Artery/Lesion type: [place] artery [place] vs. transplanted heart: [place] heart Associated angina: without angina Qualified Code(s): I25.10 - Atherosclerotic heart disease of [place] coronary artery without angina pectoris (7) LUIS on CPAP Current Visit: No Status: Chronic Assessment and plan: Continue CPAP during night (8) Dehydration Current Visit: No Status: Resolved Assessment and plan: Patient has signs of dehydration. BUN/Cr 44. Place patient on IV fluid. (9) Hyperkalemia Current Visit: Yes Status: Acute Assessment and plan: Potassium level 6.0. No EKG change. Patient has diarrhea. Probably due to dehydration. Will closely monitor patient in telemetry and repeat potassium in a.m. - Time Spent With Patient Total time spent is greater than 50% in coordination of care (as documented) at patient's floor/unit and/or counseling patient: 40 minutes Greater than 35 minutes
[2018-01-17] MEDS: D5% in 0.45% NACL 1,000 ML IVC SCH ×2 (01:19→22:10)
[2018-01-17] MEDS: Ondansetron 4 MG/2 ML VIAL IVP PRN (01:20)
[2018-01-17 01:54] LABS: Basophils # 0.1 K/mcL (0.0-0.2); Basophils % 0.9 %; Eosinophils # 0.2 K/mcL (0.0-0.6); Eosinophils % 2.1 %; Hematocrit 32.5 % (35.3-44.9); Hemoglobin 10.1 g/dL (11.5-15.4); Immature Granulocytes % 0.7 % (0-4); Lymphocytes # 2.3 K/mcL (0.6-4.6); Lymphocytes % 19.8 %; Mean Corpuscular HGB Conc 31.1 g/dL (31.6-35.5); Mean Corpuscular Hemoglobin 28.8 pg (28.0-33.3); Mean Corpuscular Volume 92.6 fL (83.0-100.0); Mean Platelet Volume 10.5 fL (9.4-12.4); Monocytes # 1.6 K/mcL (0.0-1.3); Monocytes % 14.1 %; Neutrophils # 7.1 K/mcL (1.6-8.9); Nucleated Red Blood Cells 0.2 /100 WBC (0); Platelet Count 299 K/mcL (140-400); Red Blood Count 3.51 M/mcL (3.82-4.97); Red Cell Distribution Width 17.5 % (11.5-14.5); Segmented Neutrophils % 62.4 %
[2018-01-17 02:53] LABS: BUN/Creatinine Ratio 44 (6-26); Blood Urea Nitrogen 32 mg/dL (8-23); Calcium 8.2 mg/dL (8.6-10.3); Carbon Dioxide 27 mEq/L (23-29); Chloride 105 mEq/L (98-107); Chol/HDL Ratio 2.1 (0-4.9); Cholesterol 78 mg/dL (< 200); Glucose 110 mg/dL (70-105); HDL Cholesterol 37 mg/dL (40-59); LDL Cholesterol,Calculated 28 mg/dL (0-99); Magnesium 1.3 mg/dL (1.6-2.6); Osmolality,Calculated 292 (280-300); Phosphorous 3.8 mg/dL (2.7-4.5); Potassium 6.3 mEq/L (3.5-5.1); Sodium 137 mEq/L (136-145); Triglycerides 67 mg/dL (< 150); eGFR For African Americans > 60 (> 60); eGFR For Non-African Americans > 60 (> 60)
[2018-01-17] MEDS: Levalbuterol Neb 0.63 MG/3 ML IH SCH ×4 (03:45→22:22)
[2018-01-17 04:27] LABS: Adenovirus F 40/41 PCR Not detected (Not detect); Astrovirus PCR Not detected (Not detect); C.difficile Toxin A/B by PCR Not detected (Not detect); Campylobacter by PCR Not detected (Not detect); Cryptosporidium by PCR Not detected (Not detect); Cyclospora cayetanensis PCR Not detected (Not detect); E. coli O157 by PCR Not detected (Not detect); Entamoeba histolytica PCR Not detected (Not detect); Enteroaggregative E.coli(EAEC) Not detected (Not detect); Enteropathogenic E.coli(EPEC) Not detected (Not detect); Enterotoxigenic E.coli (ETEC) Not detected (Not detect); Giardia lamblia PCR Not detected (Not detect); Norovirus GI/GII PCR Not detected (Not detect); Plesiomonas shigelloides PCR Not detected (Not detect); Rotavirus A PCR Not detected (Not detect); Salmonella PCR Not detected (Not detect); Sapovirus PCR Not detected (Not detect); Shig/EnteroinvasiveE coli EIEC Not detected (Not detect); Shigalike tox-prod E coli STEC Not detected (Not detect); Vibrio PCR Not detected (Not detect); Vibrio cholerae PCR Not detected (Not detect); Yersinia enterocolitica PCR Not detected (Not detect)
[2018-01-17] MEDS: Diltiazem CD (24hr) 180 MG CAPSULE PO SCH (08:14)
[2018-01-17] MEDS: *HR* Digoxin 0.125 MG TABLET PO SCH (08:14)
[2018-01-17] MEDS: BuPROPion XL (24 HR) 150 MG TABLET PO SCH (08:20)
[2018-01-17] MEDS: Aspirin 81 MG TAB.CHEW PO SCH (08:20)
[2018-01-17] MEDS: Magnesium Oxide 400 MG TABLET PO SCH ×2 (08:20→22:11)
--- NOTE | 2018-01-17 15:49 | Internal Med Progress Note ---
Date of Encounter: 01/17/18 Time of Encounter: 11:30 - Assessment and plan (1) Diarrhea Current Visit: Yes Status: Chronic Assessment and plan: Having diarrhea for 3 years. Significant weight loss of over 220 pounds in last 3 years, this was intentional. Pt with recent surgery for SBO x [address] Chauhan. Continue to monitor labs and vitals GI panel negative Continue IVF and Hold MagOx Qualifiers: Diarrhea type: unspecified type Qualified Code(s): R19.7 - Diarrhea, unspecified (2) LUIS on CPAP Current Visit: Yes Status: Chronic Assessment and plan: Continue CPAP. (3) Dehydration Current Visit: Yes Status: Resolved Assessment and plan: Resolved. Secondary to diarrhea. Continue IVF and monitor labs and vitals. (4) Coronary artery disease Current Visit: Yes Status: Chronic Assessment and plan: Denies chest pain. Continue aspirin, digoxin, Cardizem. Continue telemetry Qualifiers: Coronary Disease-Associated Artery/Lesion type: [place] artery [place] vs. transplanted heart: [place] heart Associated angina: without angina Qualified Code(s): I25.10 - Atherosclerotic heart disease of [place] coronary artery without angina pectoris (5) Atrial fibrillation/flutter Current Visit: Yes Status: Chronic Assessment and plan: Monitor normal sinus rhythm. Continue Cardizem CD, digoxin. Patient is on aspirin, continue. Patient is not on anticoagulation due to prior history of alveolar hemorrhage. Continue telemetry (6) COPD (chronic obstructive pulmonary disease) Current Visit: Yes Status: Acute Assessment and plan: No acute exacerbation. Lungs are clear and diminished. Patient is in no distress. Continue oxygen at 2 L via nasal cannula to maintain sats greater than 92%. Continue bronchodilators, nebulizer treatments, home medications. Qualifiers: COPD type: emphysema Emphysema type: unspecified Qualified Code(s): J43.9 - Emphysema, unspecified (7) General weakness Current Visit: Yes Status: Acute Assessment and plan: Patient with generalized weakness likely secondary to poor pain and intake, chronic diarrhea, dehydration. Continue IV fluid Dietary consultation in and pending PT/OT consultation in, evaluate pt when she is more stable. (8) Hyperkalemia Current Visit: Yes Status: Resolved Assessment and plan: Redraw today, 4.6. Continue to monitor labs. (9) DVT prophylaxis Current Visit: Yes Status: Acute Assessment and plan: EPCDs ordered. - Time Spent With Patient Total time spent is greater than 50% in coordination of care (as documented) at patient's floor/unit and/or counseling patient: less than 15 minutes - Subjective Interval history: Patient was seen and assessed at bedside 11:30. She reports approximately 220 pound weight loss over the last 3 and half years. She states that since she has lost weight. Diarrhea has been out of control. She states she does not want to see GI here and she follows at [facility]. She reports area for 3 years, unchanged. No new symptoms began again last night. Her abdomen is soft and nontender. She denies headache, chest pain, shortness of breath, peripheral edema, dizziness. - Constitutional Vitals: Temp Pulse Resp BP Pulse Ox 97.6 F 62 18 100/64 100 01/17/18 11:47 01/17/18 11:47 01/17/18 11:47 01/17/18 11:47 01/17/18 11:47 General appearance: Present: cachectic, cooperative, A&O X 3, pleasant, no acute distress, answers questions appropriately - Head Head exam: Present: atraumatic, normal inspection, normocephalic - Eye Eye exam: Present: normal appearance, conjuntiva pink, sclera anicteric - Neck Neck exam general surgery: Present: supple, trachea midline. Absent: lymphadenopathy, tenderness - Respiratory Respiratory exam: Present: CTAB. Absent: accessory muscle use, chest wall tenderness, decreased breath sounds, rales, rhonchi, wheezes - Cardiovascular Cardiovascular exam: Present: RRR, +S1, +S2. Absent: diastolic murmur, gallop, rubs, systolic murmur - GI/Abdominal GI/Abdominal exam: Present: normal bowel sounds, soft. Absent: distended, hepatomegaly, tenderness - Extremities Exam Extremities exam: Present: normal capillary refill, normal inspection, warm, radial pulses palpable and symmetrical. Absent: calf tenderness, cyanotic, pedal edema, tenderness - Neurological Exam Neurological exam: Present: alert, oriented X3, no focal deficits. Absent: facial droop, speech deficit - Skin Skin exam: Present: dry, intact, normal color, warm. Absent: rash Internal Medicine: Result - Labs CBC & Chem 7: 01/17/18 01:42 01/17/18 14:15 Labs: Short CBC 01/17/18 Range/Units 01:42 WBC 11.4 H (4.3-11.1) K/mcL Hgb 10.1 L (11.5-15.4) g/dL Hct 32.5 L (35.3-44.9) % Plt Count 299 (140-400) K/mcL Neutrophils # 7.1 (1.6-8.9) K/mcL BMP 01/17/18 01/17/18 01:42 14:15 Sodium 137 Potassium 6.3 H 4.6 D Chloride 105 Carbon Dioxide 27 BUN 32 H Creatinine 0.72 Glucose 110 H Calcium 8.2 L - ABG Interpretation ABG results: PT/INR, D-dimer PT 13.2 Seconds (9.4-12.1) H 01/16/18 19:52 - VTE Documentation of Mechanical Device: Intermittent pneumatic compression device Consult Discharge Plan - Plan Referrals: Sloane Murphy DO [Primary Care Provider] -
--- NOTE | 2018-01-17 16:25 | Electrocardiograph Report ---
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
[2018-01-17] MEDS: Beclomethasone 80mcg MDI IH SCH (22:22)
[2018-01-18] MEDS: Levalbuterol Neb 0.63 MG/3 ML IH SCH ×4 (03:47→22:34)
[2018-01-18] MEDS: *HR* OxyCODONE Immed Rel 5 MG TABLET PO PRN ×3 (04:12→21:58)
[2018-01-18 04:27] LABS: Basophils # 0.1 K/mcL (0.0-0.2); Basophils % 0.9 %; Eosinophils # 0.1 K/mcL (0.0-0.6); Eosinophils % 0.8 %; Hematocrit 30.7 % (35.3-44.9); Hemoglobin 9.6 g/dL (11.5-15.4); Immature Granulocytes % 0.4 % (0-4); Lymphocytes # 1.6 K/mcL (0.6-4.6); Lymphocytes % 17.5 %; Mean Corpuscular HGB Conc 31.3 g/dL (31.6-35.5); Mean Corpuscular Hemoglobin 28.7 pg (28.0-33.3); Mean Corpuscular Volume 91.9 fL (83.0-100.0); Mean Platelet Volume 9.9 fL (9.4-12.4); Monocytes % 10.8 %; Neutrophils # 6.3 K/mcL (1.6-8.9); Platelet Count 256 K/mcL (140-400); Red Blood Count 3.34 M/mcL (3.82-4.97); Red Cell Distribution Width 17.5 % (11.5-14.5); Segmented Neutrophils % 69.6 %
[2018-01-18 04:38] LABS: BUN/Creatinine Ratio 35 (6-26); Blood Urea Nitrogen 26 mg/dL (8-23); Calcium 8.3 mg/dL (8.6-10.3); Carbon Dioxide 27 mEq/L (23-29); Chloride 105 mEq/L (98-107); Glucose 110 mg/dL (70-105); Osmolality,Calculated 287 (280-300); Potassium 4.4 mEq/L (3.5-5.1); Sodium 136 mEq/L (136-145); eGFR For African Americans > 60 (> 60); eGFR For Non-African Americans > 60 (> 60)
[2018-01-18] MEDS ORDERED: Magnesium Sulfate 2 GM in D5% in Water 100 ML IVPB ONE (08:04)
[2018-01-18] MEDS: *HR* Digoxin 0.125 MG TABLET PO SCH (08:55)
[2018-01-18] MEDS: Aspirin 81 MG TAB.CHEW PO SCH (08:55)
[2018-01-18] MEDS: Diltiazem CD (24hr) 180 MG CAPSULE PO SCH (08:55)
[2018-01-18] MEDS: BuPROPion XL (24 HR) 150 MG TABLET PO SCH (08:55)
[2018-01-18] MEDS: Beclomethasone 80mcg MDI IH SCH ×2 (10:03→22:34)
[2018-01-18] MEDS: Ondansetron 4 MG/2 ML VIAL IVP PRN ×2 (12:55→21:58)
--- NOTE | 2018-01-18 14:16 | Palliative - Consult Note ---
<Paula Thomas - Last Filed: 01/18/18 14:12> Date of Encounter: 01/18/18 Time of Encounter: 14:12 - Assessment and Plan (1) Goals of care, counseling/discussion Current Visit: Yes Status: Acute Assessment and plan: Code status: [id number] Patient states she just wants to end it all. She is ready to . In her perfect world, she could be physically well again and go on living. She does not wish to continue struggling with chronic diarrhea, unintentional weight loss , and most recently recurrent small bowel obstructions. She plans to name her son her Marla. She states that there is no one that could take care of her at home if she was on hospice [she took care of her father when he was on hospice]. She does not want to go back in a jail. (2) Cachexia Current Visit: Yes Status: Acute Assessment and plan: BMI 18 She has lost 220+ lbs in the past 3.5 years. She lost the first 150 lbs intentionally, then 1.5 years ago she started losing weight unintentionally due to chronic diarrhea. Both the diarrhea and weight loss are still issues today. She is currently on both oral and tube feeds. (3) Acute on chronic respiratory failure Current Visit: No Status: Acute Assessment and plan: management per hospitalist uses 2L O2 via NC 15/02 Qualifiers: Respiratory failure complication: hypoxia Qualified Code(s): J96.21 - Acute and chronic respiratory failure with hypoxia (4) Hypomagnesemia Current Visit: No Status: Acute Assessment and plan: management per hospitalist chronic, due to chronic diarrhea repleted as needed (5) Small bowel obstruction Current Visit: No Status: Acute Assessment and plan: management per hospitalist CT abdomen 01/16 showed persistent severe ileus currently on full liquid diet and tube feed: osmolite 1.2 @ 35 ml/hr Palliative-CN HPI - Data of Consult Patient: new to practice Consult date: 01/18/18 Requesting Physician: Lloyd Beach DO Primary Care Provider: Maribel Fernandez - Consult Narrative Palliative Care/Comfort Measures: Hospice care Reason for consult: goals of care History of present illness: Ms. Hebert is a 67 year old female with a PMH of diarrhea predominant IBS with multiple comorbities recently complicated by recurrent small bowel obstructions. She has cachexia due to unintentional weight loss from the chronic diarrhea. Palliative care was consulted for goals of care due to the patient stating she is sick and tired of being sick and tired. CC: Lloyd Beach, DO Past Med Surg Social Fam HX - Past Medical History Medical history: atrial fibrillation, CHF, COPD, coronary artery disease, diabetes, hyperlipidemia, hypertension, myocardial infarction, other Additional medical history: IBS Psychiatric history: no psych history - Past Surgical History Surgical History: hysterectomy, orthopedic, other, pacemaker/AICD, other Additional surgical history: dawit knee replacement. achilles tendons sx - Social History Smoking Status: Never smoker Smokeless Tobacco Status: No Alcohol use: none Drug use: none - Family History Father Adopted: No Family Member Ethnicity: Non- Living Status: Hx Family Cardiac Disorders: No Hx Family Respiratory Disorders: Yes (COPD) Hx Family Cancer: No Hx Family GI Disorders: No Hx Family Endocrine Disorder: No Hx Family Neuromuscular Disorders: No Hx Family Neurologic Disorders: No Hx Family HEENT Disorders: No Hx Family Autoimmune Disorders: No Mother Living Status: Hx Family Cardiac Disorders: Yes Hx Family Endocrine Disorder: Yes Medications and Allergies Aspirin 81 mg PO DAILY 06/05/16 [History] Multivitamin [Multivitamins] 1 cap PO DAILY 06/05/16 [History] Ferrous Sulfate 325 mg PO DAILY 04/28/17 [History] Baclofen [Lioresal] 10 mg PO TID PRN 08/19/17 [History] Cholecalciferol (D-3) [Vitamin D] 2,000 unit PO DAILY #30 tablet 08/25/17 [Rx] Albuterol Sulfate [Ventolin Hfa] 2 puff IH Q6H PRN 09/11/17 [History] Beclomethasone Diprop 80mcg [QVAR 80 mcg] 1 puff IH BID 09/11/17 [History] BuPROPion XL (24 HR) [Wellbutrin Xl] 150 mg PO DAILY 09/11/17 [History] Cyanocobalamin (Vitamin B-12) [Vitamin B12] 1,000 mcg PO DAILY 10/29/17 [History ] Oxygen 2 l .ROUTE AD 10/29/17 [History] Albuterol Neb [Proventil Neb] 2.5 mg IH Q2H PRN inhsol 11/07/17 [Rx] Nitroglycerin 0.4 mg SL Q5MIN PRN tab.subl 11/07/17 [Rx] Lipase/Protease/Amylase [Micky Ramos 6,000 Units Capsule] 2 each PO ACHS #240 capsule. 11/17/17 [Rx] Magnesium Oxide [Mag-Ox] 400 mg PO TID 11/27/17 [History] GuaiFENesin Liq [Robitussin Liq] 200 mg PO Q6HR PRN udc 12/11/17 [Rx] Lactobacillus [Culturelle] 1 each PO BID cap.sprink 12/11/17 [Rx] Digoxin [Lanoxin] 0.125 mg PO DAILY #1 tablet 12/29/17 [Rx] Levalbuterol Neb [Xopenex Neb] 0.63 mg IH F3ALLAD vial.neb 12/29/17 [Rx] Metoclopramide [Reglan] 10 mg PO BIDAC tablet 12/29/17 [Rx] Omeprazole [PriLOSEC] 20 mg PO BIDAC #2 cap 12/29/17 [Rx] Oxycodone HCl [Oxaydo] 5 mg PO Q6H PRN 1 Days #5 tablet.orl 12/29/17 [Rx] Saliva Stimulant [Biotene Moisturizing Rinse] 1 spray PO Q2H PRN bottle [Rx] Sucralfate [Carafate] 1 gm GTUBE QIDAC udc 12/29/17 [Rx] Diltiazem CD (24hr) [Cardizem CD] 180 mg PO DAILY 30 Days #30 cap.er.24h [Rx] Furosemide [Lasix] 40 mg PO DAILY 5 Days #5 tablet 01/14/18 [Rx] 3 Allergy/AdvReac Type Severity Reaction Status Date / Time peanut Allergy Hives Verified 11/26/17 10:44 zinc Allergy Hives Verified 11/26/17 10:44 Sulfa (Sulfonamide AdvReac Mild constipatio Verified 11/26/17 10:44 Antibiotics) n Palliative Care-Exam - Constitutional Vitals: Temp Pulse Resp BP Pulse Ox 97.7 F 73 16 116/69 99 01/18/18 10:49 01/18/18 10:49 01/18/18 10:49 01/18/18 10:49 01/18/18 10:49 General appearance: Present: cooperative, no acute distress Exam: cachectic - Head Head Exam: Present: atraumatic, normocephalic - Eye Eye exam: Present: normal appearance - ENT ENT exam: Present: mucous membranes moist - Respiratory Respiratory exam: Present: CTAB - Cardiovascular Cardiovascular exam: Present: RRR - GI/Abdominal Exam GI/Abdominal exam: Present: normal bowel sounds, soft, tenderness - Neurological Exam Neurological exam: Present: alert, oriented X3. Absent: facial droop, speech deficit - Psychiatric Psychiatric exam: Absent: suicidal ideation - Skin Skin exam: Present: dry, intact, normal color, warm Internal Medicine - CN: Reslt - Labs CBC & Chem 7: 01/18/18 04:09 01/18/18 04:09 Labs: Short CBC 01/18/18 Range/Units 04:09 WBC 9.0 (4.3-11.1) K/mcL Hgb 9.6 L (11.5-15.4) g/dL Hct 30.7 L (35.3-44.9) % Plt Count 256 (140-400) K/mcL Neutrophils # 6.3 (1.6-8.9) K/mcL BMP 01/18/18 04:09 Sodium 136 Potassium 4.4 Chloride 105 Carbon Dioxide 27 BUN 26 H Creatinine 0.74 Glucose 110 H Calcium 8.3 L - ABG Interpretation ABG results: PT/INR, D-dimer PT 13.2 Seconds (9.4-12.1) H 01/16/18 19:52 Consult Discharge Plan - Plan Referrals: Sloane Murphy DO [Primary Care Provider] - Palliative Quality Palliative Quality: Screen for Code Status: Yes, Screen for Goals of Care: Yes, Screen for Pain: Yes, If Pain Regimen Started, Initiate Bowel Regimen: NA, Screen for Nausea/Vomitting: NA Code Status: 01/18/18 14:11 Resuscitation Status: Active [RES] Routine Comment: Resuscitation Status: [id number] <Keenan Chatman - Last Filed: 01/18/18 15:09> Date of Encounter: 01/18/18 Palliative-CN HPI - Data of Consult Requesting Physician: Lloyd Beach DO Primary Care Provider: Maribel Fernandez - Consult Narrative History of present illness: Ms. Hebert is a 67 year old female CC: Lloyd Beach, DO Palliative Care-Exam - Constitutional Vitals: Temp Pulse Resp BP Pulse Ox 97.5 F L 85 16 130/87 95 01/18/18 14:27 01/18/18 14:27 01/18/18 14:27 01/18/18 14:27 01/18/18 14:27 Internal Medicine - CN: Reslt - Labs CBC & Chem 7: 01/18/18 04:09 01/18/18 04:09 Labs: Short CBC 01/18/18 Range/Units 04:09 WBC 9.0 (4.3-11.1) K/mcL Hgb 9.6 L (11.5-15.4) g/dL Hct 30.7 L (35.3-44.9) % Plt Count 256 (140-400) K/mcL Neutrophils # 6.3 (1.6-8.9) K/mcL BMP 01/18/18 04:09 Sodium 136 Potassium 4.4 Chloride 105 Carbon Dioxide 27 BUN 26 H Creatinine 0.74 Glucose 110 H Calcium 8.3 L - ABG Interpretation ABG results: PT/INR, D-dimer PT 13.2 Seconds (9.4-12.1) H 01/16/18 19:52 - Attending Attestation I examined this patient and my medical decision-making was reviewed with the Resident Physician. I agree with the documented findings, disposition and treatment plan as described except to the extent set forth below Palliative Quality Code Status: 01/18/18 14:11 Resuscitation Status: Active [RES] Routine Comment: Resuscitation Status: [id number]
[2018-01-18] MEDS ORDERED: *HR* Promethazine 25 MG/ML VIAL IM PRN (14:46)
[2018-01-18] MEDS ORDERED: *HR* Promethazine 25 MG/ML VIAL ONE (14:47)
[2018-01-18] MEDS ORDERED: *HR* Promethazine 25 MG/ML VIAL IVP PRN (14:55)
--- NOTE | 2018-01-18 18:19 | Internal Med Progress Note ---
Date of Encounter: 01/18/18 Time of Encounter: 13:00 - Assessment and plan (1) Adynamic ileus Current Visit: Yes Status: Chronic Assessment and plan: Pt with chronic ileus. Supportive care. (2) Chronic diarrhea Current Visit: No Status: Chronic Assessment and plan: Continues to have diarrhea. Receiving supportive care. (3) LUIS on CPAP Current Visit: Yes Status: Chronic Assessment and plan: Continue CPAP. (4) DVT prophylaxis Current Visit: Yes Status: Acute (5) Coronary artery disease Current Visit: Yes Status: Chronic Assessment and plan: Denies chest pain. Continue aspirin, digoxin, Cardizem. Continue telemetry Qualifiers: Coronary Disease-Associated Artery/Lesion type: [place] artery [place] vs. transplanted heart: [place] heart Associated angina: without angina Qualified Code(s): I25.10 - Atherosclerotic heart disease of [place] coronary artery without angina pectoris (6) COPD (chronic obstructive pulmonary disease) Current Visit: Yes Status: Chronic Assessment and plan: Not in exacerbation at this time. Qualifiers: COPD type: emphysema Emphysema type: unspecified Qualified Code(s): J43.9 - Emphysema, unspecified (7) General weakness Current Visit: Yes Status: Acute Assessment and plan: Patient with generalized weakness likely secondary to poor pain and intake, chronic diarrhea, dehydration. Continue IV fluid Dietary consultation in and pending PT/OT consultation in, evaluate pt when she is more stable. (8) Atrial fibrillation Current Visit: Yes Status: Chronic Assessment and plan: Continue meds. Qualifiers: Atrial fibrillation type: chronic Qualified Code(s): I48.2 - Chronic atrial fibrillation (9) Severe protein-calorie malnutrition Current Visit: Yes Status: Chronic (10) Goals of care, counseling/discussion Current Visit: Yes Status: Acute Assessment and plan: Aisha has expressed being tired and wanting to stop treatment. Palliative consulted. - Time Spent With Patient Total time spent is greater than 50% in coordination of care (as documented) at patient's floor/unit and/or counseling patient: - Subjective Interval history: Ms Hebert is currently admitted for abdominal and chronic ileus and diarrhea. She remains moderate to high risk due to potential for worsening clinical status. Ms Hebert is very tired. She wants to stop treatment. She continues to have diarrhea and pain. No fever or chills. Palliative has been consulted. - Constitutional Vitals: Temp Pulse Resp BP Pulse Ox 97.5 F L 85 18 130/87 92 01/18/18 14:27 01/18/18 14:27 01/18/18 16:07 01/18/18 14:27 01/18/18 16:07 General appearance: Present: cachectic, cooperative, A&O X 3, pleasant, answers questions appropriately - Head Head exam: Present: normocephalic - Eye Eye exam: Present: EOMI, conjuntiva pink - ENT ENT exam: Present: mucous membranes dry - Respiratory Respiratory exam: Present: decreased breath sounds. Absent: rhonchi, wheezes - Cardiovascular Cardiovascular exam: Present: RRR. Absent: tachycardia - GI/Abdominal GI/Abdominal exam: Present: soft - Extremities Exam Extremities exam: Present: warm. Absent: tenderness - Neurological Exam Neurological exam: Present: alert, oriented X3 - Skin Skin exam: Present: dry, warm Internal Medicine: Result - Labs CBC & Chem 7: 01/18/18 04:09 01/18/18 04:09 Labs: Short CBC 01/18/18 Range/Units 04:09 WBC 9.0 (4.3-11.1) K/mcL Hgb 9.6 L (11.5-15.4) g/dL Hct 30.7 L (35.3-44.9) % Plt Count 256 (140-400) K/mcL Neutrophils # 6.3 (1.6-8.9) K/mcL BMP 01/18/18 04:09 Sodium 136 Potassium 4.4 Chloride 105 Carbon Dioxide 27 BUN 26 H Creatinine 0.74 Glucose 110 H Calcium 8.3 L - ABG Interpretation ABG results: PT/INR, D-dimer PT 13.2 Seconds (9.4-12.1) H 01/16/18 19:52 - VTE Documentation of Mechanical Device: Intermittent pneumatic compression device Consult Discharge Plan - Plan Referrals: Sloane Murphy DO [Primary Care Provider] -
[2018-01-19 04:07] LABS: Basophils # 0.1 K/mcL (0.0-0.2); Basophils % 0.3 %; Immature Granulocytes % 0.6 % (0-4); Lymphocytes # 2.2 K/mcL (0.6-4.6); Lymphocytes % 11.1 %; Mean Corpuscular Hemoglobin 28.8 pg (28.0-33.3); Mean Platelet Volume 10.1 fL (9.4-12.4); Monocytes # 1.3 K/mcL (0.0-1.3); Monocytes % 6.6 %; Platelet Count 256 K/mcL (140-400); Red Blood Count 3.89 M/mcL (3.82-4.97); Red Cell Distribution Width 17.8 % (11.5-14.5); Segmented Neutrophils % 81.4 %
[2018-01-19] MEDS: Levalbuterol Neb 0.63 MG/3 ML IH SCH ×4 (04:08→20:46)
[2018-01-19 04:10] LABS: Hemoglobin 11.2 g/dL (11.5-15.4)
[2018-01-19 04:26] LABS: Magnesium 1.4 mg/dL (1.6-2.6); Phosphorous 3.2 mg/dL (2.7-4.5)
[2018-01-19 04:27] LABS: BUN/Creatinine Ratio 41 (6-26); Blood Urea Nitrogen 33 mg/dL (8-23); Calcium 8.3 mg/dL (8.6-10.3); Carbon Dioxide 30 mEq/L (23-29); Chloride 100 mEq/L (98-107); Glucose 124 mg/dL (70-105); Osmolality,Calculated 289 (280-300); Potassium 4.6 mEq/L (3.5-5.1); Sodium 135 mEq/L (136-145); eGFR For African Americans > 60 (> 60); eGFR For Non-African Americans > 60 (> 60)
[2018-01-19] MEDS ORDERED: Cholestyramine 4 GM POWD.PACK PO SCH (07:00)
--- NOTE | 2018-01-19 07:59 | Palliative Progress Note ---
Date of Encounter: 01/19/18 Time of Encounter: 07:45 - Assessment and plan (1) Depressed affect Current Visit: Yes Status: Acute Assessment and plan: Primarily situational. I am convinced the patient is not suicidal. She is truly sick and tired of being sick and tired. Wellbutrin and should be well up on that by now she will start Ritalin today. Believe the basis of a depressed affect for her is all based on little modern medicine can do for her at this point in time. (2) Atrial fibrillation Current Visit: Yes Status: Chronic Assessment and plan: Currently in regular rate and rhythm. We will have to watch very carefully utilizing psychostimulants. Qualifiers: Atrial fibrillation type: chronic Qualified Code(s): I48.2 - Chronic atrial fibrillation (3) Chronic diarrhea Current Visit: No Status: Chronic Assessment and plan: This has slowed down markedly since yesterday. We will start small amount of cholestyramine today and see how she does. (4) Chronic respiratory failure with hypoxia Current Visit: No Status: Chronic (5) Diffuse pulmonary alveolar hemorrhage Current Visit: No Status: Acute Assessment and plan: No problems with this at this time, however this is the reason she cannot be anticoagulated for her paroxysmal atrial fibrillation. (6) General weakness Current Visit: Yes Status: Acute Assessment and plan: Per the patient (7) Goals of care, counseling/discussion Current Visit: Yes Status: Acute Assessment and plan: Patient is DNR CCA DNI. Overall patient wishes to go home and be left alone but be kept comfortable and allowed to pass. He has declined going up to [place] talk with her GI people, she has declined talking to surgery about any other options although those options probably are not realistic. In consultation with the primary hospitalist team we do not believe this patient is suicidal at all. However she is feeling that there is nothing left for her. And not wish to live the way that she has been living. sHe does not wish to go to a fci she does not feel there is a possibility of being able to go home with family. sHe has been informed that she cannot just stay in the hospital until she passes in all likelihood. I will discuss with social work. - Time Spent With Patient Total time spent is greater than 50% in coordination of care (as documented) at patient's floor/unit and/or counseling patient: - Subjective Interval history: The patient reports feeling a little bit better today, diarrhea has certainly slowed from yesterday and nausea appears to be at least slightly better. She did stop the continuous tube feeds. He should not is due to start some cholestyramine today as well as Ritalin her pulse rate is regular at this time. - Constitutional Vitals: Abnormal lab results WBC 19.6 K/mcL (4.3-11.1) H D 01/19/18 03:45 Hgb 11.2 g/dL (11.5-15.4) L D 01/19/18 03:45 Hct 35.0 % (35.3-44.9) L 01/19/18 03:45 RDW 17.8 % (11.5-14.5) H 01/19/18 03:45 Neutrophils # 16.0 K/mcL (1.6-8.9) H 01/19/18 03:45 Nucleated RBCs/100 WBC 0.2 /100 WBC (0) H 01/17/18 01:42 PT 13.2 Seconds (9.4-12.1) H 01/16/18 19:52 Sodium 135 mEq/L (136-145) L 01/19/18 03:45 Carbon Dioxide 30 mEq/L (23-29) H 01/19/18 03:45 BUN 33 mg/dL (8-23) H 01/19/18 03:45 BUN/Creatinine Ratio 41 (6-26) H 01/19/18 03:45 Glucose 124 mg/dL (70-105) H 01/19/18 03:45 POC Glucose 101 mg/dL (70-99) H 01/17/18 00:16 Calcium 8.3 mg/dL (8.6-10.3) L 01/19/18 03:45 Magnesium 1.4 mg/dL (1.6-2.6) L 01/19/18 03:45 Albumin 2.7 g/dL (3.5-5.7) L 01/16/18 19:52 Globulin 4.4 g/dL (2.4-3.5) H 01/16/18 19:52 Albumin/Globulin Ratio 0.6 (1.1-2.2) L 01/16/18 19:52 HDL Cholesterol 37 mg/dL (40-59) L 01/17/18 01:42 Urine Clarity Cloudy (Clear) A 01/16/18 19:59 Urine Ketones Trace mg/dL (Negative) H 01/16/18 19:59 Ur Leukocyte Esterase Moderate (Negative) H 01/16/18 19:59 Urine Microscopic WBC 50-100 per hpf (0-3) H 01/16/18 19:59 Ur Squamous Epith Cells Many per lpf (None-Few) H 01/16/18 19:59 Hyaline Casts Moderate per lpf (None-Few) H 01/16/18 19:59 Granular Casts Few per lpf (None Seen) H 01/16/18 19:59 Urine Yeast Many per hpf (None Seen) H 01/16/18 19:59 Ur Culture Indicated? NO. (NO) A 01/16/18 19:59 Digoxin 0.5 ng/mL (0.8-2.0) L 01/17/18 14:15 General appearance: Present: no acute distress - Respiratory Respiratory exam: Present: decreased breath sounds - Cardiovascular Cardiovascular exam: Present: RRR - GI/Abdominal GI/Abdominal exam: Present: normal bowel sounds, soft. Absent: tenderness - Extremities Exam Extremities exam: Absent: tenderness - Psychiatric Psychiatric exam: Present: depressed (But perhaps not quite as bad as yesterday. ). Absent: agitated, anxious - Skin Skin exam: Present: dry, warm Palliative Quality Palliative Quality: Screen for Code Status: Yes, Screen for Goals of Care: Yes, Screen for Pain: Yes, If Pain Regimen Started, Initiate Bowel Regimen: NA, Screen for Nausea/Vomitting: NA Code Status: 01/18/18 14:11 Resuscitation Status: Active [RES] Routine Comment: Resuscitation Status: [id number] - Labs CBC & Chem 7: 01/19/18 03:45 01/19/18 03:45 Labs: Laboratory Results - last 24 hr 01/19/18 01/19/18 01/19/18 03:45 03:45 03:45 WBC 19.6 H D RBC 3.89 Hgb 11.2 L D Hct 35.0 L MCV 90.0 MCH 28.8 MCHC 32.0 RDW 17.8 H Plt Count 256 MPV 10.1 Immature Gran % 0.6 Seg Neutrophils % 81.4 Lymphocytes % 11.1 Monocytes % 6.6 Eosinophils % 0.0 Basophils % 0.3 Neutrophils # 16.0 H Lymphocytes # 2.2 Monocytes # 1.3 Eosinophils # 0.0 Basophils # 0.1 Sodium 135 L Potassium 4.6 Chloride 100 Carbon Dioxide 30 H BUN 33 H Creatinine 0.80 Est GFR ( Amer) > 60 Est GFR (Non-Af Amer) > 60 BUN/Creatinine Ratio 41 H Glucose 124 H Calculated Osmolality 289 Calcium 8.3 L Phosphorus 3.2 Magnesium 1.4 L - ABG Interpretation ABG results: PT/INR, D-dimer PT 13.2 Seconds (9.4-12.1) H 01/16/18 19:52 Consult Discharge Plan - Plan Referrals: Sloane Murphy DO [Primary Care Provider] -
[2018-01-19] MEDS: Methylphenidate HCl 5 MG TABLET PO SCH ×2 (08:22→11:04)
[2018-01-19] MEDS: Diltiazem CD (24hr) 180 MG CAPSULE PO SCH (08:23)
[2018-01-19] MEDS: BuPROPion XL (24 HR) 150 MG TABLET PO SCH (08:23)
[2018-01-19] MEDS: *HR* Digoxin 0.125 MG TABLET PO SCH (08:23)
[2018-01-19] MEDS: Aspirin 81 MG TAB.CHEW PO SCH (08:23)
[2018-01-19] MEDS: Beclomethasone 80mcg MDI IH SCH ×2 (10:31→20:45)
--- NOTE | 2018-01-19 18:49 | Internal Med Progress Note ---
Date of Encounter: 01/19/18 Time of Encounter: 08:30 - Assessment and plan (1) Adynamic ileus Current Visit: Yes Status: Chronic Assessment and plan: Pt with chronic ileus. Supportive care. She is currently refusing any treatment. To meet with palliative in family meeting today. (2) Chronic diarrhea Current Visit: No Status: Chronic Assessment and plan: Continues to have diarrhea. Receiving supportive care. (3) LUIS on CPAP Current Visit: Yes Status: Chronic Assessment and plan: Continue CPAP. (4) DVT prophylaxis Current Visit: Yes Status: Acute (5) Coronary artery disease Current Visit: Yes Status: Chronic Assessment and plan: Denies chest pain. Continue aspirin, digoxin, Cardizem. Continue telemetry Qualifiers: Coronary Disease-Associated Artery/Lesion type: [place] artery [place] vs. transplanted heart: [place] heart Associated angina: without angina Qualified Code(s): I25.10 - Atherosclerotic heart disease of [place] coronary artery without angina pectoris (6) COPD (chronic obstructive pulmonary disease) Current Visit: Yes Status: Chronic Assessment and plan: Not in exacerbation at this time. Qualifiers: COPD type: emphysema Emphysema type: unspecified Qualified Code(s): J43.9 - Emphysema, unspecified (7) General weakness Current Visit: Yes Status: Acute Assessment and plan: Patient with generalized weakness likely secondary to poor pain and intake, chronic diarrhea, dehydration. She is now refusing further treatments. (8) Atrial fibrillation Current Visit: Yes Status: Chronic Assessment and plan: Continue meds. Qualifiers: Atrial fibrillation type: chronic Qualified Code(s): I48.2 - Chronic atrial fibrillation (9) Severe protein-calorie malnutrition Current Visit: Yes Status: Chronic (10) Goals of care, counseling/discussion Current Visit: Yes Status: Acute Assessment and plan: Aisha has expressed being tired and wanting to stop treatment. Palliative meeting with family today. - Time Spent With Patient Total time spent is greater than 50% in coordination of care (as documented) at patient's floor/unit and/or counseling patient: - Subjective Interval history: Ms Hebert is currently admitted for abdominal and chronic ileus and diarrhea. She remains moderate to high risk due to potential for worsening clinical status. Ms Hebert has been refusing meds and tube feeds. To have family meeting today with palliative. No fever or chills at this time. WBC higher today. - Constitutional Vitals: Temp Pulse Resp BP Pulse Ox 97.9 F 82 16 103/70 99 01/19/18 14:58 01/19/18 14:58 01/19/18 15:56 01/19/18 14:58 01/19/18 15:56 General appearance: Present: cachectic, cooperative, A&O X 3, pleasant, answers questions appropriately - Head Head exam: Present: normocephalic - Eye Eye exam: Present: conjuntiva pink - ENT ENT exam: Present: mucous membranes dry - Respiratory Respiratory exam: Present: decreased breath sounds. Absent: rhonchi, wheezes - Cardiovascular Cardiovascular exam: Present: RRR. Absent: tachycardia - GI/Abdominal GI/Abdominal exam: Present: soft, tenderness - Extremities Exam Extremities exam: Present: warm. Absent: tenderness - Neurological Exam Neurological exam: Present: alert, oriented X3 - Skin Skin exam: Present: dry, warm Internal Medicine: Result - Labs CBC & Chem 7: 01/19/18 03:45 01/19/18 03:45 Labs: Short CBC 01/19/18 Range/Units 03:45 WBC 19.6 H D (4.3-11.1) K/mcL Hgb 11.2 L D (11.5-15.4) g/dL Hct 35.0 L (35.3-44.9) % Plt Count 256 (140-400) K/mcL Neutrophils # 16.0 H (1.6-8.9) K/mcL BMP 01/19/18 03:45 Sodium 135 L Potassium 4.6 Chloride 100 Carbon Dioxide 30 H BUN 33 H Creatinine 0.80 Glucose 124 H Calcium 8.3 L - ABG Interpretation ABG results: PT/INR, D-dimer PT 13.2 Seconds (9.4-12.1) H 01/16/18 19:52 - VTE Documentation of Mechanical Device: Intermittent pneumatic compression device Consult Discharge Plan - Plan Referrals: Sloane Murphy DO [Primary Care Provider] -
[2018-01-19] MEDS: *HR* OxyCODONE Immed Rel 5 MG TABLET PO PRN (21:37)
[2018-01-20] MEDS: Levalbuterol Neb 0.63 MG/3 ML IH SCH ×4 (03:59→22:41)
--- NOTE | 2018-01-20 07:53 | Palliative Progress Note ---
<Paula Thomas - Last Filed: 01/20/18 07:46> Date of Encounter: 01/20/18 Time of Encounter: 07:47 - Assessment and plan (1) Goals of care, counseling/discussion Current Visit: Yes Status: Acute Assessment and plan: code status: changed to DNR-CC Plan to discharge home with [facility] tomorrow AM after D.M.E. is provided. She will need a hospital bed and bedside table. Her home oxygen supplier will need to be changed. (2) Acute on chronic respiratory failure Current Visit: No Status: Acute Assessment and plan: using 1-2L O2 via NC currently at 2L and O2 sat 100% Qualifiers: Respiratory failure complication: hypoxia Qualified Code(s): J96.21 - Acute and chronic respiratory failure with hypoxia (3) Diarrhea Current Visit: Yes Status: Chronic Assessment and plan: improved no bowel movements yesterday or this AM Qualifiers: Diarrhea type: unspecified type Qualified Code(s): R19.7 - Diarrhea, unspecified (4) General weakness Current Visit: Yes Status: Acute (5) Cachexia Current Visit: Yes Status: Acute Assessment and plan: She has lost 220+ lbs in the past 3.5 years. She lost the first 150 lbs intentionally, then 1.5 years ago she started losing weight unintentionally due to chronic diarrhea. - Time Spent With Patient Total time spent is greater than 50% in coordination of care (as documented) at patient's floor/unit and/or counseling patient: - Subjective Interval history: Lying comfortably in bed. No acute events overnight. States pain in sacrum and shoulder (5/10) - has not asked for pain medication this AM. - Constitutional Vitals: Abnormal lab results WBC 19.6 K/mcL (4.3-11.1) H D 01/19/18 03:45 Hgb 11.2 g/dL (11.5-15.4) L D 01/19/18 03:45 Hct 35.0 % (35.3-44.9) L 01/19/18 03:45 RDW 17.8 % (11.5-14.5) H 01/19/18 03:45 Neutrophils # 16.0 K/mcL (1.6-8.9) H 01/19/18 03:45 Nucleated RBCs/100 WBC 0.2 /100 WBC (0) H 01/17/18 01:42 PT 13.2 Seconds (9.4-12.1) H 01/16/18 19:52 Sodium 135 mEq/L (136-145) L 01/19/18 03:45 Carbon Dioxide 30 mEq/L (23-29) H 01/19/18 03:45 BUN 33 mg/dL (8-23) H 01/19/18 03:45 BUN/Creatinine Ratio 41 (6-26) H 01/19/18 03:45 Glucose 124 mg/dL (70-105) H 01/19/18 03:45 POC Glucose 101 mg/dL (70-99) H 01/17/18 00:16 Calcium 8.3 mg/dL (8.6-10.3) L 01/19/18 03:45 Magnesium 1.4 mg/dL (1.6-2.6) L 01/19/18 03:45 Albumin 2.7 g/dL (3.5-5.7) L 01/16/18 19:52 Globulin 4.4 g/dL (2.4-3.5) H 01/16/18 19:52 Albumin/Globulin Ratio 0.6 (1.1-2.2) L 01/16/18 19:52 HDL Cholesterol 37 mg/dL (40-59) L 01/17/18 01:42 Urine Clarity Cloudy (Clear) A 01/16/18 19:59 Urine Ketones Trace mg/dL (Negative) H 01/16/18 19:59 Ur Leukocyte Esterase Moderate (Negative) H 01/16/18 19:59 Urine Microscopic WBC 50-100 per hpf (0-3) H 01/16/18 19:59 Ur Squamous Epith Cells Many per lpf (None-Few) H 01/16/18 19:59 Hyaline Casts Moderate per lpf (None-Few) H 01/16/18 19:59 Granular Casts Few per lpf (None Seen) H 01/16/18 19:59 Urine Yeast Many per hpf (None Seen) H 01/16/18 19:59 Ur Culture Indicated? NO. (NO) A 01/16/18 19:59 Digoxin 0.5 ng/mL (0.8-2.0) L 01/17/18 14:15 - Head Head exam: Present: atraumatic, normocephalic - Eye Eye exam: Present: normal appearance - ENT ENT exam: Present: mucous membranes moist - Respiratory Respiratory exam: Present: CTAB - Cardiovascular Cardiovascular exam: Present: RRR - GI/Abdominal GI/Abdominal exam: Present: normal bowel sounds, soft - Extremities Exam Extremities exam: Present: normal inspection. Absent: pedal edema Additional comments: posterior tibial pulses 2/4 - Psychiatric Psychiatric exam: Present: normal mood. Absent: normal affect (depressed affect ), suicidal ideation Palliative Quality Palliative Quality: Screen for Code Status: Yes, Screen for Goals of Care: Yes, Screen for Pain: Yes, If Pain Regimen Started, Initiate Bowel Regimen: NA, Screen for Nausea/Vomitting: Yes Code Status: 01/18/18 14:11 Resuscitation Status: Active [RES] Routine Comment: Resuscitation Status: [id number] 01/20/18 07:41 Resuscitation Status: Active [RES] Routine Comment: Resuscitation Status: DNR-Comfort Care - Labs CBC & Chem 7: 01/19/18 03:45 01/19/18 03:45 - ABG Interpretation ABG results: PT/INR, D-dimer PT 13.2 Seconds (9.4-12.1) H 01/16/18 19:52 Consult Discharge Plan - Plan Referrals: Sloane Murphy DO [Primary Care Provider] - <Keenan Chatman - Last Filed: 01/20/18 09:17> Date of Encounter: 01/20/18 - Assessment and plan (1) Depressed affect Current Visit: Yes Status: Acute (2) Atrial fibrillation Current Visit: Yes Status: Chronic Qualifiers: Atrial fibrillation type: chronic Qualified Code(s): I48.2 - Chronic atrial fibrillation (3) Chronic diarrhea Current Visit: No Status: Chronic (4) Chronic respiratory failure with hypoxia Current Visit: No Status: Chronic (5) Diffuse pulmonary alveolar hemorrhage Current Visit: No Status: Acute (6) General weakness Current Visit: Yes Status: Acute (7) Goals of care, counseling/discussion Current Visit: Yes Status: Acute - Time Spent With Patient Total time spent is greater than 50% in coordination of care (as documented) at patient's floor/unit and/or counseling patient: - Constitutional Vitals: Abnormal lab results WBC 19.6 K/mcL (4.3-11.1) H D 01/19/18 03:45 Hgb 11.2 g/dL (11.5-15.4) L D 01/19/18 03:45 Hct 35.0 % (35.3-44.9) L 01/19/18 03:45 RDW 17.8 % (11.5-14.5) H 01/19/18 03:45 Neutrophils # 16.0 K/mcL (1.6-8.9) H 01/19/18 03:45 Nucleated RBCs/100 WBC 0.2 /100 WBC (0) H 01/17/18 01:42 PT 13.2 Seconds (9.4-12.1) H 01/16/18 19:52 Sodium 135 mEq/L (136-145) L 01/19/18 03:45 Carbon Dioxide 30 mEq/L (23-29) H 01/19/18 03:45 BUN 33 mg/dL (8-23) H 01/19/18 03:45 BUN/Creatinine Ratio 41 (6-26) H 01/19/18 03:45 Glucose 124 mg/dL (70-105) H 01/19/18 03:45 POC Glucose 101 mg/dL (70-99) H 01/17/18 00:16 Calcium 8.3 mg/dL (8.6-10.3) L 01/19/18 03:45 Magnesium 1.4 mg/dL (1.6-2.6) L 01/19/18 03:45 Albumin 2.7 g/dL (3.5-5.7) L 01/16/18 19:52 Globulin 4.4 g/dL (2.4-3.5) H 01/16/18 19:52 Albumin/Globulin Ratio 0.6 (1.1-2.2) L 01/16/18 19:52 HDL Cholesterol 37 mg/dL (40-59) L 01/17/18 01:42 Urine Clarity Cloudy (Clear) A 01/16/18 19:59 Urine Ketones Trace mg/dL (Negative) H 01/16/18 19:59 Ur Leukocyte Esterase Moderate (Negative) H 01/16/18 19:59 Urine Microscopic WBC 50-100 per hpf (0-3) H 01/16/18 19:59 Ur Squamous Epith Cells Many per lpf (None-Few) H 01/16/18 19:59 Hyaline Casts Moderate per lpf (None-Few) H 01/16/18 19:59 Granular Casts Few per lpf (None Seen) H 01/16/18 19:59 Urine Yeast Many per hpf (None Seen) H 01/16/18 19:59 Ur Culture Indicated? NO. (NO) A 01/16/18 19:59 Digoxin 0.5 ng/mL (0.8-2.0) L 01/17/18 14:15 - Attending Attestation I examined this patient and my medical decision-making was reviewed with the Resident Physician. I agree with the documented findings, disposition and treatment plan as described except to the extent set forth below. I called [facility] gave the bedside table and is patient's DME needs also inform them that she has oxygen at home but this will need to be changed would have her provider there using the name of the patient's sister Lloyd at [facility] for setting up DME. Patient wishes to be signed up for hospice after discharge in the morning. Palliative Quality Code Status: 01/18/18 14:11 Resuscitation Status: Active [RES] Routine Comment: Resuscitation Status: [id number] 01/20/18 07:41 Resuscitation Status: Active [RES] Routine Comment: Resuscitation Status: DNR-Comfort Care - Labs CBC & Chem 7: 01/19/18 03:45 01/19/18 03:45 - ABG Interpretation ABG results: PT/INR, D-dimer PT 13.2 Seconds (9.4-12.1) H 01/16/18 19:52
[2018-01-20] MEDS: *HR* Digoxin 0.125 MG TABLET PO SCH (08:54)
[2018-01-20] MEDS: BuPROPion XL (24 HR) 150 MG TABLET PO SCH (08:54)
[2018-01-20] MEDS: Methylphenidate HCl 5 MG TABLET PO SCH ×2 (08:54→11:36)
[2018-01-20] MEDS: Diltiazem CD (24hr) 180 MG CAPSULE PO SCH (08:54)
[2018-01-20] MEDS: Aspirin 81 MG TAB.CHEW PO SCH (08:54)
[2018-01-20] MEDS: *HR* OxyCODONE Immed Rel 5 MG TABLET PO SCH ×4 (08:57→19:42)
[2018-01-20] MEDS: Beclomethasone 80mcg MDI IH SCH ×2 (11:27→22:41)
--- NOTE | 2018-01-20 18:03 | Internal Med Progress Note ---
Date of Encounter: 01/20/18 Time of Encounter: 07:40 - Assessment and plan (1) Adynamic ileus Current Visit: Yes Status: Chronic Assessment and plan: Pt with chronic ileus. Supportive care. She is currently refusing any treatment. To be discharged with hospice tomorrow. (2) Chronic diarrhea Current Visit: No Status: Chronic Assessment and plan: Diarrhea improving at this time. (3) LUIS on CPAP Current Visit: Yes Status: Chronic Assessment and plan: Continue CPAP. (4) DVT prophylaxis Current Visit: Yes Status: Acute (5) Coronary artery disease Current Visit: Yes Status: Chronic Assessment and plan: Denies chest pain. Continue aspirin, digoxin, Cardizem. Qualifiers: Coronary Disease-Associated Artery/Lesion type: [place] artery [place] vs. transplanted heart: [place] heart Associated angina: without angina Qualified Code(s): I25.10 - Atherosclerotic heart disease of [place] coronary artery without angina pectoris (6) COPD (chronic obstructive pulmonary disease) Current Visit: Yes Status: Chronic Assessment and plan: Not in exacerbation at this time. Qualifiers: COPD type: emphysema Emphysema type: unspecified Qualified Code(s): J43.9 - Emphysema, unspecified (7) General weakness Current Visit: Yes Status: Acute Assessment and plan: Patient with generalized weakness likely secondary to poor pain and intake, chronic diarrhea, dehydration. She is now refusing further treatments. (8) Atrial fibrillation Current Visit: Yes Status: Chronic Assessment and plan: Continue meds. Qualifiers: Atrial fibrillation type: chronic Qualified Code(s): I48.2 - Chronic atrial fibrillation (9) Severe protein-calorie malnutrition Current Visit: Yes Status: Chronic (10) Goals of care, counseling/discussion Current Visit: Yes Status: Acute - Time Spent With Patient Total time spent is greater than 50% in coordination of care (as documented) at patient's floor/unit and/or counseling patient: - Subjective Interval history: Ms Hebert is currently admitted for abdominal and chronic ileus and diarrhea. She remains moderate to high risk due to potential for worsening clinical status. Ms Hebert has less diarrhea. She is to be discharged with hospice tomorrow. Pain controlled at this time. - Constitutional Vitals: Temp Pulse Resp BP Pulse Ox 97.9 F 86 18 108/65 97 01/20/18 15:37 01/20/18 15:37 01/20/18 16:05 01/20/18 15:37 01/20/18 16:05 General appearance: Present: cachectic, cooperative, A&O X 3, pleasant, answers questions appropriately - Head Head exam: Present: normocephalic - Eye Eye exam: Present: conjuntiva pink - ENT ENT exam: Present: mucous membranes moist - Respiratory Respiratory exam: Present: CTAB. Absent: rhonchi, wheezes - Cardiovascular Cardiovascular exam: Present: RRR. Absent: tachycardia - GI/Abdominal GI/Abdominal exam: Present: soft. Absent: tenderness - Extremities Exam Extremities exam: Present: warm. Absent: tenderness - Neurological Exam Neurological exam: Present: alert, oriented X3 - Skin Skin exam: Present: dry, warm Internal Medicine: Result - Labs CBC & Chem 7: 01/19/18 03:45 01/19/18 03:45 - ABG Interpretation ABG results: PT/INR, D-dimer PT 13.2 Seconds (9.4-12.1) H 01/16/18 19:52 - VTE Documentation of Mechanical Device: Intermittent pneumatic compression device Consult Discharge Plan - Plan Referrals: Sloane Murphy DO [Primary Care Provider] - Prescriptions: LORazepam Oral Conc [Ativan Oral Conc] 1 mg PO Q4H 7 Days #30 mls Morphine Oral CONC [Roxanol] 0.25 ml SL Q2H PRN 7 Days #60 ml PRN Reason: sob or pain
[2018-01-20] MEDS: Ondansetron 4 MG/2 ML VIAL IVP PRN (19:42)
[2018-01-21] MEDS: *HR* OxyCODONE Immed Rel 5 MG TABLET PO SCH ×4 (00:04→11:45)
[2018-01-21] MEDS: Levalbuterol Neb 0.63 MG/3 ML IH SCH ×2 (04:46→10:26)
[2018-01-21 06:52] VITALS: BP 104/62
[2018-01-21] MEDS: Methylphenidate HCl 5 MG TABLET PO SCH ×2 (07:14→11:43)
[2018-01-21] MEDS: BuPROPion XL (24 HR) 150 MG TABLET PO SCH (07:14)
[2018-01-21] MEDS: *HR* Digoxin 0.125 MG TABLET PO SCH (07:14)
[2018-01-21] MEDS: Diltiazem CD (24hr) 180 MG CAPSULE PO SCH (07:14)
[2018-01-21] MEDS: Aspirin 81 MG TAB.CHEW PO SCH (07:15)
[2018-01-21] MEDS: Ondansetron 4 MG/2 ML VIAL IVP PRN (07:15)
--- NOTE | 2018-01-21 08:34 | Discharge Summary ---
- NOTES TO OUTPATIENT PROVIDER Notes to Outpatient Provider: Admitted with recurrent diarrhea. Unable to tolerate tube feeds. Weak. Decided to discharge home with Hospice. Date of Encounter: 01/21/18 Time of Encounter: 08:00 - Discharge Diagnosis (1) Adynamic ileus Priority: Primary Status: Chronic (2) Chronic diarrhea Priority: Secondary Status: Chronic (3) LUIS on CPAP Priority: Secondary Status: Chronic (4) Coronary artery disease Priority: Secondary Status: Chronic Qualifiers: Coronary Disease-Associated Artery/Lesion type: [place] artery [place] vs. transplanted heart: [place] heart Associated angina: without angina Qualified Code(s): I25.10 - Atherosclerotic heart disease of [place] coronary artery without angina pectoris (5) COPD (chronic obstructive pulmonary disease) Priority: Secondary Status: Chronic Qualifiers: COPD type: emphysema Emphysema type: unspecified Qualified Code(s): J43.9 - Emphysema, unspecified (6) General weakness Priority: Secondary Status: Chronic (7) Atrial fibrillation Priority: Secondary Status: Chronic Qualifiers: Atrial fibrillation type: chronic Qualified Code(s): I48.2 - Chronic atrial fibrillation (8) Severe protein-calorie malnutrition Priority: Secondary Status: Chronic Hospital course: Ms. Hebert is a 67 year old female with multiple medical problems presented to ED with recurrent diarrhea. CT showed persistent ileus. She was subsequently admitted. Ms Hebert was admitted to med surg. She was NPO and then started on tube feeds. She continued to have diarrhea and pain with tube feeds. She was seen by palliative care and elected to go home with hospice. Arrangements were made. Discharge discussed with: patient - Time Spent with Patient Total time spent providing and/or coordinating discharge services: 37min - Discharge Medications Prescriptions: LORazepam Oral Conc [Ativan Oral Conc] 1 mg PO Q4H 7 Days #30 mls Morphine Oral CONC [Roxanol] 0.25 ml SL Q2H PRN 7 Days #60 ml PRN Reason: sob or pain Home Medications: Aspirin 81 mg PO DAILY 06/05/16 [History] Baclofen [Lioresal] 10 mg PO TID PRN 08/19/17 [History] Albuterol Sulfate [Ventolin Hfa] 2 puff IH Q6H PRN 09/11/17 [History] Beclomethasone Diprop 80mcg [QVAR 80 mcg] 1 puff IH BID 09/11/17 [History] BuPROPion XL (24 HR) [Wellbutrin Xl] 150 mg PO DAILY 09/11/17 [History] Oxygen 2 l .ROUTE AD 10/29/17 [History] Albuterol Neb [Proventil Neb] 2.5 mg IH Q2H PRN inhsol 11/07/17 [Rx] Nitroglycerin 0.4 mg SL Q5MIN PRN tab.subl 11/07/17 [Rx] Magnesium Oxide [Mag-Ox] 400 mg PO TID 11/27/17 [History] GuaiFENesin Liq [Robitussin Liq] 200 mg PO Q6HR PRN udc 12/11/17 [Rx] Digoxin [Lanoxin] 0.125 mg PO DAILY #1 tablet 12/29/17 [Rx] Levalbuterol Neb [Xopenex Neb] 0.63 mg IH [id number] vial.neb 12/29/17 [Rx] Omeprazole [PriLOSEC] 20 mg PO BIDAC #2 cap 12/29/17 [Rx] Saliva Stimulant [Biotene Moisturizing Rinse] 1 spray PO Q2H PRN bottle [Rx] Sucralfate [Carafate] 1 gm GTUBE QIDAC udc 12/29/17 [Rx] Diltiazem CD (24hr) [Cardizem CD] 180 mg PO DAILY 30 Days #30 cap.er.24h [Rx] LORazepam Oral Conc [Ativan Oral Conc] 1 mg PO Q4H 7 Days #30 mls 01/20/18 [Rx] Morphine Oral CONC [Roxanol] 0.25 ml SL Q2H PRN 7 Days #60 ml 01/20/18 [Rx] Allergies/Adverse Reactions: 3 Allergy/AdvReac Type Severity Reaction Status Date / Time peanut Allergy Hives Verified 11/26/17 10:44 zinc Allergy Hives Verified 11/26/17 10:44 Sulfa (Sulfonamide AdvReac Mild constipatio Verified 11/26/17 10:44 Antibiotics) n Date of admission: 01/17/18 15:46 Primary care physician: Maribel Fernandez Consults: 01/18/18 13:37 Consult to Palliative Care [CONS] Routine Comment: Consulting Provider: [facility] [place] Reason for Consult: Goals Time Notified: 13:00 Call Completed: Yes Discharging clinician: [place] Anticipated date of discharge: 01/21/18 - Constitutional Vitals: Temp Pulse Resp BP Pulse Ox 97.9 F 87 14 104/62 99 01/21/18 06:51 01/21/18 06:51 01/21/18 06:51 01/21/18 06:51 01/21/18 06:51 General appearance: Present: cachectic, cooperative, A&O X 3, pleasant, answers questions appropriately - Head Head exam: Present: normocephalic - Eye Eye exam: Present: conjuntiva pink - ENT ENT exam: Present: mucous membranes moist - Respiratory Respiratory exam: Present: CTAB. Absent: rhonchi, wheezes - Cardiovascular Cardiovascular exam: Present: RRR. Absent: tachycardia - GI/Abdominal GI/Abdominal exam: Present: soft, tenderness - Extremities Exam Extremities exam: Present: warm. Absent: tenderness - Neurological Exam Neurological exam: Present: alert, oriented X3 - Skin Skin exam: Present: dry, warm - Patient Status Disposition: Hospice - Home Condition: Fair Functional capacity at discharge: uses cane/walker Overall status at discharge: other (New baseline) - Discharge Instructions Instructions: Dehydration (DC), Chronic Obstructive Pulmonary Disease (DC) Follow Up With: Sloane Murphy DO [Primary Care Provider] - - Diet and Activity Activity: increase activity as tolerated Diet: advance to your usual diet - VTE Documentation of Mechanical Device: Intermittent pneumatic compression device
--- NOTE | 2018-01-21 08:36 | Physician Discharge Referral ---
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 (1) Adynamic ileus Priority: Primary Status: Chronic (2) Chronic diarrhea Priority: Secondary Status: Chronic (3) LUIS on CPAP Priority: Secondary Status: Chronic (4) Coronary artery disease Priority: Secondary Status: Chronic (5) COPD (chronic obstructive pulmonary disease) Priority: Secondary Status: Chronic (6) General weakness Priority: Secondary Status: Chronic (7) Atrial fibrillation Priority: Secondary Status: Chronic (8) Severe protein-calorie malnutrition Priority: Secondary Status: Chronic - Respiratory Orders Oxygen / L per min (Maintain sat greater than 88%) Smoking Cessation: Smoking cessation has been advised. For more information, call the [employer] Tobacco Quit Line at 3-742-DMYL-NOW. - Diet/Nutrition Diet/Nutrition Orders: Regular Diet/Nutrition: List: As tolerated - Activity Activity Orders: Up ad joesph - Services Needed Following services are medically necessary services: Nursing, Home Health Aide - Transfer Medications Prescriptions: LORazepam Oral Conc [Ativan Oral Conc] 1 mg PO Q4H 7 Days #30 mls Morphine Oral CONC [Roxanol] 0.25 ml SL Q2H PRN 7 Days #60 ml PRN Reason: sob or pain Home Medications: Aspirin 81 mg PO DAILY 06/05/16 [History] Baclofen [Lioresal] 10 mg PO TID PRN 08/19/17 [History] Albuterol Sulfate [Ventolin Hfa] 2 puff IH Q6H PRN 09/11/17 [History] Beclomethasone Diprop 80mcg [QVAR 80 mcg] 1 puff IH BID 09/11/17 [History] BuPROPion XL (24 HR) [Wellbutrin Xl] 150 mg PO DAILY 09/11/17 [History] Oxygen 2 l .ROUTE AD 10/29/17 [History] Albuterol Neb [Proventil Neb] 2.5 mg IH Q2H PRN inhsol 11/07/17 [Rx] Nitroglycerin 0.4 mg SL Q5MIN PRN tab.subl 11/07/17 [Rx] Magnesium Oxide [Mag-Ox] 400 mg PO TID 11/27/17 [History] GuaiFENesin Liq [Robitussin Liq] 200 mg PO Q6HR PRN udc 12/11/17 [Rx] Digoxin [Lanoxin] 0.125 mg PO DAILY #1 tablet 12/29/17 [Rx] Levalbuterol Neb [Xopenex Neb] 0.63 mg IH [id number] vial.neb 12/29/17 [Rx] Omeprazole [PriLOSEC] 20 mg PO BIDAC #2 cap 12/29/17 [Rx] Saliva Stimulant [Biotene Moisturizing Rinse] 1 spray PO Q2H PRN bottle [Rx] Sucralfate [Carafate] 1 gm GTUBE QIDAC udc 12/29/17 [Rx] Diltiazem CD (24hr) [Cardizem CD] 180 mg PO DAILY 30 Days #30 cap.er.24h [Rx] LORazepam Oral Conc [Ativan Oral Conc] 1 mg PO Q4H 7 Days #30 mls 01/20/18 [Rx] Morphine Oral CONC [Roxanol] 0.25 ml SL Q2H PRN 7 Days #60 ml 01/20/18 [Rx] Allergies/Adverse Reactions: 3 Allergy/AdvReac Type Severity Reaction Status Date / Time peanut Allergy Hives Verified 11/26/17 10:44 zinc Allergy Hives Verified 11/26/17 10:44 Sulfa (Sulfonamide AdvReac Mild constipatio Verified 11/26/17 10:44 Antibiotics) n Certification: Further, I certify that my clinical findings support that this patient is homebound (i.e. absences from home require considerable and taxing effort and are for medical reasons or anglican services or infrequently or short duration when for other reasons) because: Homebound Reason: Patient requires assistance of a person or device to safely leave home, Leaving home requires considerable and taxing effort due to condition, Severity of cardiac or pulmonary status limits activity tolerance Attestation: My signature below is to certify that this patient is under my care and that I, or nurse practitioner, or a physician's special education assistant working with me, has a face-to -face encounter with this patient.
[2018-01-21] MEDS: Beclomethasone 80mcg MDI IH SCH (10:25)
--- NOTE | 2018-01-24 13:25 | Event Note ---
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 Start: 01/21/2018 Hospice benefit. In: +90 days Palliative performance scale: 35% History: Patient with chronic malabsorption veer diarrhea very to this as well as respiratory failure and acute on chronic kidney injury. She is unable to keep up with nutritional demands and wishes to stop all artificial feeding addition she does not feel that she really wants to eat very much anyway, she wants no further aggressive care, as she has discussed this at length with her predictive maintenance specialist in [place] has already had 1 small bowel obstruction. and therefore I believe that These findings support a life expectancy of 6 months or less. I attest that I have compose the above narrative based on my review of the patient's medical records, and or on my examination of the patient. Keenan Chatman M.D. Associate medical reviewer. [facility]
== END 2018-01-21 14:52 | disposition hospice, home (50) | DRG 388 ==
LOC: 3ANU 17:32 → EMEROO 17:32 → 3ANU 22:29 → SUATTDRO 01-17 15:46
PROVIDERS: ADMIT Registered Nurse; ATTEND Internal Medicine